=== PATIENT | female | born 1960 | race Caucasian/White ===

== ENCOUNTER 2024-08-13 10:46 | Emergency (ER) | payer MEDICARE, MEDICAID, SELFPAY ==
[2024-08-13 10:47] VITALS: BMI 27.4
[2024-08-13 11:25] VITALS: BP 92/60; PULSE 88; RESP 18; TEMP 36.6; O2SAT 99; BMI 26.5
--- NOTE | 2024-08-13 11:33 | XR_ITS ---
Examination: Foot, right, 3 views Technique: AP, oblique, lateral views foot, 3 views Date and time of exam: August 13, 2024 1139 hours Comparison 05/20/2024 INDICATIONS: Nonhealing wound medial foot FINDINGS: Old fracture deformity with nonunion proximal phalanx first digit No acute fracture No joanne cortical bone destruction IMPRESSION: No joanne cortical bone destruction Consider MRI foot without contrast follow-up to best assess for acute osteomyelitis
[2024-08-13 12:06] LABS: Basophils # (Auto) 0.1 Thou/mm3 (0.0-0.2); Basophils % (Auto) 1 % (0-2.5); Eosinophils # (Auto) 0.2 Thou/mm3 (0.0-0.5); Eosinophils % (Auto) 1 % (0-10); Hematocrit 38.5 % (36.0-46.0); Hemoglobin 12.1 g/dL (12.0-16.0); Immature Granulocytes % (Auto) 1 % (0-0); Immature Granulocytes Auto 0.07 Thou/mm3 (0.00-0.00); Lymphocytes % (Auto) 19 % (10-50); Mean Corpuscular HGB Conc 31.4 g/dl (31.0-37.0); Mean Corpuscular Hemoglobin 28.8 pg (25.0-35.0); Mean Corpuscular Volume 92 fL (80-100); Monocytes # (Auto) 0.8 Thou/mm3 (0.0-0.8); Monocytes % (Auto) 7 % (0-12); Neutrophils # (Auto) 7.6 Thou/mm3 (1.8-7.7); Neutrophils % (Auto) 71 % (37-80); Nucleated Red Blood Cell % 0 /100 WBC (0); Platelet Count 220 Thou/mm3 (140-440); RDW Standard Deviation 54.5 fL (36.4-46.3); White Blood Count 10.6 Thou/mm3 (3.6-11.0)
--- NOTE | 2024-08-13 12:36 | PD.EDSKIN ---
ED Skin Abcess FB-RME/HPI General Chief complaint: Skin/Abscess/Foreign Body Stated complaint: RT FOOT INFECTION Time Seen by Provider: 08/13/24 11:14 Arrival date/time: 08/13/24 10:46 64-year-old female presents emergency department today stating she knows that he had a wound on the plantar aspect of right foot patient does report she is a follow-up appointment with wound care on the but felt she should be seen before then Limitations: no limitations Related Data Home Medications ?Medication ?Instructions ?Recorded ?Confirmed atorvastatin 20 mg tablet 20 mg PO QDAY 09/15/23 09/15/23 calcitriol 0.25 mcg capsule See Rx Instructions .Route .COMPLEX 09/15/23 09/15/23 docusate sodium 250 mg capsule 250 mg PO QDAY 09/15/23 09/15/23 furosemide 80 mg tablet 80 mg PO QDAY PRN SOB 09/15/23 09/15/23 loratadine 10 mg tablet 10 mg PO QDAY 09/15/23 09/15/23 losartan 50 mg tablet 50 mg PO QDAY 09/15/23 09/15/23 metoprolol tartrate 50 mg tablet 50 mg PO QDAY 09/15/23 09/15/23 pantoprazole 40 mg tablet,delayed 40 mg PO QDAY 09/15/23 09/15/23 release Previous Rx's ?Medication ?Instructions ?Recorded bacitracin 500 unit/gram topical 1 applic topical TID 7 days #28.4 08/13/24 ointment grams clindamycin HCl 300 mg capsule 300 mg PO TID 7 days #21 caps 08/13/24 ibuprofen 600 mg tablet 600 mg PO Q6H #30 tabs 08/13/24 Allergies Allergy/AdvReac Type Severity Reaction Status Date / Time No Known Allergies Allergy Verified 08/13/24 10:49 Review of Systems Review of Systems Systems Reviewed: All systems reviewed, normal except as documented Constitutional Constitutional: Reports system reviewed and no additional complaints, except as documented, Denies fever(s) and Denies headache(s) Eyes Eyes: Reports system reviewed and no additional complaints, except as documented and Denies blurry vision ENT Ears, Nose, Mouth, and Throat: Reports system reviewed and no additional complaints, except as documented, Denies headache(s), Denies nasal congestion and Denies nasal discharge Cardiovascular Cardiovascular: Reports system reviewed and no additional complaints, except as documented, Denies chest pain and Denies dyspnea Respiratory Respiratory: Reports system reviewed and no additional complaints, except as documented, Denies chest congestion, Denies cough and Denies dyspnea Gastrointestinal Gastrointestinal: Reports system reviewed and no additional complaints, except as documented and Denies abdominal pain Integumentary/Breasts Skin/Breast: Reports system reviewed and no additional complaints, except as documented, Denies rash and Reports other (Wound right foot) Neurologic Neurologic: Reports system reviewed and no additional complaints, except as documented, Reports as per HPI and Denies headache(s) Past Medical History Past Medical History NEUROLOGIC: Positive Neurological Disorders and Cerebrovascular Accident (10 YEARS AGO - NO RESIDUAL EFFECTS); Negative Seizures CARDIAC: Positive Cardiac Disorders, Hypercholesterolemia, Hypertension and Hypotension; Negative Congestive Heart Failure RESPIRATORY: Negative Chronic Obstructive Pulmonary Disease (COPD) or Asthma GASTROINTESTINAL: Positive Gastrointestinal Disorders and Gastroesophageal Reflux Disease GENITOURINARY: Positive Genitourinary Disorders and Renal Disease (PERITONEAL DIALYSIS) MUSCULOSKELETAL: Negative Musculoskeletal Disorders ENDOCRINE: Positive Endocrine Disorders and Diabetes Mellitus Type 2 (DIET CONTROLLED - NO MEDS); Negative Diabetes Mellitus Type 1 HEMATOLOGIC: Negative Blood Disorders or Sickle Cell Disease OTHER HISTORY: Positive Chicken Pox, Measles and Mumps; Negative Blood Transfusions, Anesthesia Reactions or Cancer Family History FAMILY HISTORY: Positive Family Cancer Surgical History SURGICAL: Positive Abdominal Surgery (GASTRIC SLEEVE, PERITONEAL DIALYSIS PORT INSERTION), Hysterectomy and Section (X3) Social History SMOKING STATUS: Never smoker SUBSTANCE USE: does not use ED Exam General Limitations: Present no limitations General appearance: Present alert and in no apparent distress Head Head exam: Present atraumatic Eye Eye exam: Present normal appearance, PERRL and EOMI ENT ENT exam: Present normal exam, normal oropharynx and mucous membranes moist Neck Neck exam: Present normal inspection, full ROM and trachea midline Chest Chest inspection: Present normal inspection and symmetric chest wall rise Respiratory Respiratory exam: Present normal lung sounds bilaterally Cardiovascular Cardiovascular exam: Present regular rate, normal rhythm and normal heart sounds Abdominal Exam Abdominal exam: Present soft and normal bowel sounds Extremities Exam Extremities exam: Present normal inspection and full ROM Back Exam Back exam: Present normal inspection and full ROM Neurological Exam Neurological exam: Present alert, oriented X3, CN II-XII intact, normal gait and reflexes normal; Absent motor sensory deficit Psychiatric Psychiatric exam: Present normal affect and normal mood Skin Skin exam: Present warm, dry and other (Wound right foot) Course Quality Measures none Orders Category Date Time Status XR foot comp RT min 3V Stat Exams 08/13/24 11:33 Completed CBC Stat Lab 08/13/24 11:50 Completed Lidocaine 1% 20 ml [Xylocaine 1% 20 ML] Med 08/13/24 12:36 Discontinued 2.1 ml INFL X1 ONE cefTRIAXone [Rocephin] Med 08/13/24 12:36 Discontinued 1,000 mg IM X1 ONE Vital Signs Vital signs: Vital Signs Temperature 97.9 F 08/13/24 11:25 Pulse Rate 88 08/13/24 11:25 Respiratory Rate 18 08/13/24 11:25 Blood Pressure 92/60 08/13/24 11:25 Pulse Oximetry (%) 99 08/13/24 11:25 Oxygen Delivery Method Room Air 08/13/24 11:25 O2 saturation 9 9% room air within normal limits Skin / Abscess / Foreign Body MDM Narrative MDM Narrative:: 64-year-old female presents emergency department today stating she knows that he had a wound on the plantar aspect of right foot patient does report she is a follow-up appointment with wound care on the but felt she should be seen before then On exam patient does have a wound plantar aspect of the right foot X-ray of the right foot obtained no acute fracture dislocation noted no acute bony abnormality no osteomyelitis Lab work obtained no leukocytosis Patient given dressings to apply patient given bacitracin clindamycin prescriptions Patient given first dose of Rocephin here I explained to the patient that as she is diabetic this may worsen should it worsen for any reason she must return for further evaluation and treatment patient states understanding Patient data External records reviewed:: [facility] previous records Clinical information provided by:: patient Social determinants that could affect healthcare access:: none Patient has the following chronic illnesses:: See history How is presenting disease/condition affected by chronic disease/condition?: exacerbated by Evaluation data The following diagnostics were reviewed and interpreted by me:: lab results and radiology exam(s) Lab and/or radiology exams considered but not ordered:: Labs radiology obtained Interpretation Summary: Reviewed by me Medications / Prescriptions Medications or Prescriptions considered but not ordered:: Given Medication administrations:: Medication Administration History Discontinued Medications Ceftriaxone Sodium (Ceftriaxone Sod Inj 1,000 Mg Vial) 1,000 mg IM X1 ONE Stop: 08/13/24 12:37 Lidocaine HCl (Lidocaine Hcl 1% 20 Ml Vial) 2.1 ml INFL X1 ONE Stop: 08/13/24 12:37 Given Consultations Consultation(s) initiated? (list below): No Diagnosis Skin/Abscess Differential Diagnosis: abscess of skin or subcutaneous tissue and cellulitis Most likely diagnosis given after review of the tests above:: Wound foot Admission Indicated Admission indicated?: not indicated Admission Request Was there a request for admission?: No Disposition Plan Disposition Plan: Discharge Discharge Attestation Discharge Attestation: The patient and all family members were given an opportunity to ask questions and understood the discharge instructions. Discharge instructions specifically effects, indications for sooner follow up or return to the emergency department, and the expected course of current diagnosis. Patient condition: Stable Discharge Plan Plan Patient Disposition: HOME (Self Care) Disposition Comment: Stable Prescriptions/Referrals Prescriptions/Med Rec: New bacitracin 500 unit/gram ointment 1 applic topical TID 7 Days Qty: 28.4 0RF clindamycin HCl 300 mg capsule 300 mg PO TID 7 Days Qty: 21 0RF ibuprofen 600 mg tablet 600 mg PO Q6H Qty: 30 0RF No Action losartan 50 mg tablet 50 mg PO QDAY atorvastatin 20 mg tablet 20 mg PO QDAY furosemide 80 mg tablet 80 mg PO QDAY PRN (Reason: SOB) pantoprazole 40 mg tablet,delayed release (DR/EC) 40 mg PO QDAY metoprolol tartrate 50 mg tablet 50 mg PO QDAY docusate sodium 250 mg capsule 250 mg PO QDAY calcitriol 0.25 mcg Capsule See Rx Instructions .ROUTE .COMPLEX Rx Instructions: 0.25 mcg orally 3 TIMES A WEEK loratadine 10 mg tablet 10 mg PO QDAY Hold Instructions: Resume on 09/16/23. Problem List Clinical Impression: Wound of right foot Patient/Caregiver Discharge Instructions Additional Instructions: Please follow-up with the wound care center as discussed for worsening symptoms return immediately Print Language: Estonian Stand Alone Forms: Lou Award Info., Work/School Release, Patient Portal Info Letter PA/ELECTRONIC IMAGING SYSTEM OPERATOR Supervising Physician PA/ELECTRONIC IMAGING SYSTEM OPERATOR Supervising Physician: Dr Castro
[2024-08-13] MEDS: LIDOCAINE HCL 1% 20 ML VIAL 2.1 ML INFL (13:02)
[2024-08-13] MEDS: cefTRIAXone SOD INJ 1,000 MG VIAL 1000 MG IM (13:03)
== END 2024-08-13 13:21 | disposition home or self-care (01) ==
LOC: SERX 12:53
PROVIDERS: Nurse Practitioner Primary Care; Emergency Provider Emergency Medicine; PCP Physician Assistant
DX: S91.301A Unspecified open wound, right foot, initial encounter (principal); L08.9 Local infection of the skin and subcutaneous tissue, unspecified; X58.XXXA Exposure to other specified factors, initial encounter
CPT/HCPCS: 36415; 73630; 85025; 96372; 99283; J0696; J3490

== ENCOUNTER → 2024-08-15 | Outpatient (CLI) | payer MEDICARE, MEDICAID, SELFPAY | END | disposition home or self-care (01) | LOC: SWHD 13:06 | PROVIDERS: PCP Physician Assistant; Referring Provider Physician Assistant; Visit Provider Student in an Organized Health Care Education/Training Program | DX: I96 Gangrene, not elsewhere classified (principal); E11.621 Type 2 diabetes mellitus with foot ulcer; L97.412 Non-pressure chronic ulcer of right heel and midfoot with fat layer exposed; Z99.2 Dependence on renal dialysis; Z79.4 Long term (current) use of insulin; I95.9 Hypotension, unspecified; E11.40 Type 2 diabetes mellitus with diabetic neuropathy, unspecified; K21.9 Gastro-esophageal reflux disease without esophagitis | CPT/HCPCS: 11042; 99213; A9270; G0463 ==

== ENCOUNTER → 2024-08-22 | Outpatient (CLI) | payer MEDICARE, MEDICAID, SELFPAY | END | disposition home or self-care (01) | LOC: SWHD 13:43 | PROVIDERS: PCP Physician Assistant; Referring Provider Physician Assistant; Visit Provider Student in an Organized Health Care Education/Training Program | DX: E11.621 Type 2 diabetes mellitus with foot ulcer (principal); L97.412 Non-pressure chronic ulcer of right heel and midfoot with fat layer exposed; Z99.2 Dependence on renal dialysis; Z79.4 Long term (current) use of insulin; I95.9 Hypotension, unspecified; E11.40 Type 2 diabetes mellitus with diabetic neuropathy, unspecified; K21.9 Gastro-esophageal reflux disease without esophagitis | CPT/HCPCS: 11042; A9270 ==

== ENCOUNTER → 2024-08-29 | Outpatient (CLI) | payer MEDICARE, MEDICAID, SELFPAY | END | disposition home or self-care (01) | LOC: SWHD 15:12 | PROVIDERS: Visit Provider Student in an Organized Health Care Education/Training Program | DX: E11.621 Type 2 diabetes mellitus with foot ulcer (principal); L97.415 Non-pressure chronic ulcer of right heel and midfoot with muscle involvement without evidence of necrosis; Z99.2 Dependence on renal dialysis; Z79.4 Long term (current) use of insulin; I95.9 Hypotension, unspecified; E11.40 Type 2 diabetes mellitus with diabetic neuropathy, unspecified; K21.9 Gastro-esophageal reflux disease without esophagitis | CPT/HCPCS: 97597; A9270 ==

== ENCOUNTER → 2024-09-05 | Outpatient (CLI) | payer MEDICARE, MEDICAID, SELFPAY | END | disposition home or self-care (01) | LOC: SWHD 15:00 | PROVIDERS: Visit Provider Surgery | DX: E11.621 Type 2 diabetes mellitus with foot ulcer (principal); L97.412 Non-pressure chronic ulcer of right heel and midfoot with fat layer exposed; Z99.2 Dependence on renal dialysis; Z79.4 Long term (current) use of insulin; I95.9 Hypotension, unspecified; E11.40 Type 2 diabetes mellitus with diabetic neuropathy, unspecified; K21.9 Gastro-esophageal reflux disease without esophagitis | CPT/HCPCS: 11042; A9270 ==

== ENCOUNTER → 2024-09-12 | Outpatient (CLI) | payer MEDICARE, MEDICAID, SELFPAY | END | disposition home or self-care (01) | LOC: SWHD 14:45 | PROVIDERS: Visit Provider Student in an Organized Health Care Education/Training Program | DX: E11.621 Type 2 diabetes mellitus with foot ulcer (principal); L97.412 Non-pressure chronic ulcer of right heel and midfoot with fat layer exposed; Z99.2 Dependence on renal dialysis; Z79.4 Long term (current) use of insulin; I95.9 Hypotension, unspecified; E11.40 Type 2 diabetes mellitus with diabetic neuropathy, unspecified; K21.9 Gastro-esophageal reflux disease without esophagitis | CPT/HCPCS: 11042; A9270 ==

== ENCOUNTER → 2024-09-17 | Outpatient (CLI) | payer MEDICARE, MEDICAID, SELFPAY | END | disposition home or self-care (01) | LOC: SWHD 14:19 | PROVIDERS: Visit Provider Student in an Organized Health Care Education/Training Program | DX: E11.621 Type 2 diabetes mellitus with foot ulcer (principal); L97.412 Non-pressure chronic ulcer of right heel and midfoot with fat layer exposed; Z99.2 Dependence on renal dialysis; Z79.4 Long term (current) use of insulin; I95.9 Hypotension, unspecified; E11.40 Type 2 diabetes mellitus with diabetic neuropathy, unspecified; K21.9 Gastro-esophageal reflux disease without esophagitis | CPT/HCPCS: 11042; A9270 ==

== ENCOUNTER 2024-10-02 12:29 | Emergency (ER) | payer MEDICARE, MEDICAID, SELFPAY ==
[2024-10-02] VITALS (8 sets, daily range): BP systolic 128–179; BP diastolic 77–96; PULSE 86–96; RESP 14–20; TEMP 36.5–36.9; O2SAT 96–100; BMI 25.4
--- NOTE | 2024-10-02 13:20 | XR_ITS ---
Examination: AP chest single view Technique one AP upright portable chest single view Exam date and time: 10/30/2024 1357 hours Comparison February 19, 2024 INDICATIONS: Weakness shortness of breath today. FINDINGS: Median sternotomy wires Normal heart size No lobar pneumonia or pulmonary edema Mild vascular congestion Right internal jugular dialysis catheter SVC satisfactory position IMPRESSION: Mild vascular congestion
--- NOTE | 2024-10-02 13:20 | EKG_ITS ---
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[id number] Requested By: Shahzad Christensen Order Number: [id number] Reading MD: Shahzad Christensen Measurements Intervals Merlin Rate: 91 P: 61 IN: 155 QRS: -8 QRSD: 100 T: 16 QT: 389 QTc: 481 Interpretive Statements SINUS RHYTHM MINIMAL VOLTAGE CRITERIA FOR LVH, CONSIDER NORMAL VARIANT [MEETS CRITERIA IN ONE OF: R(aVL), S(V1), R(V5), R(V5/V6)+S(V1)] POSSIBLE ANTERIOR MYOCARDIAL INFARCTION , OF INDETERMINATE AGE [30 ms Q WAVE IN V3/V4, OR R < 0.2 mV IN V4] MODERATE T-WAVE ABNORMALITY, CONSIDER LATERAL ISCHEMIA [-0.1+ mV T WAVE IN I/aVL/V5/V6] Compared to ECG 02/13/2023 17:39:22 Myocardial infarct finding now present T-wave abnormality now present Possible ischemia now present ST (T wave) deviation no longer present /store/S0/[id number]/ecg/[id number].pdf
--- NOTE | 2024-10-02 13:20 | XR_ITS ---
Examination: CT brain head without contrast. 2-D sagittal coronal reconstructions Date and time of exam:October 02, 2024 1341 hours COMPARISON: 05/13/2022 INDICATIONS: Altered mental status today CTDI: vol (mGy):45.5 DLP: (mGycm):915 Technique: Multiple CT axial sections of the brain have been obtained, 5 mm slice thickness. Contrast has not been administered. 2-D sagittal, coronal reconstructions have been obtained Low dose protocols were performed. One or more of the following dose reduction techniques were used; automated exposure control, adjustment of the mA and/or KV according to patient size, use of iterative reconstruction technique. Findings: No significant ventricular enlargement. Intra-axial or extra-axial hemorrhage density is not seen. No mass effect or midline shift Basal cisterns are not remarkable. Fourth ventricle is midline. Cranial vault intact. Again noted encephalomalacia in the right occipital lobe Impression: Negative for acute hemorrhage, mass effect or midline shift Advise clinical correlation and follow-up accordingly
--- NOTE | 2024-10-02 13:20 | XR_ITS ---
Examination: CT abdomen and pelvis without contrast. Coronal 3-D reconstructions. Sagittal 2-D reconstructions. Date and time of exam:October 02, 2024 1344 hours INDICATIONS: Diffuse abdominal pain nausea and weakness beginning 2 days ago, history kidney stones COMPARISON: December 11, 2023 CTDI: vol (mGy): 8.80 DLP: (mGycm): 516 Technique: Axial images of the abdomen have been obtained, 3 mm slice thickness Intravenous contrast material has not been administered. Low dose protocols were performed. One or more of the following dose reduction techniques were used; automated exposure control, adjustment of the mA and/or KV according to patient size, use of iterative reconstruction technique. Findings: No focal liver or splenic lesions Absent gallbladder No pancreatic or adrenal mass Renal arterial calcifications and bilateral 1 to 4 mm renal calculi, no hydronephrosis or ureteral calculi 25 mm fat-containing umbilical hernia No pericecal inflammatory change Peritoneal dialysis catheter in the pelvis Urinary bladder intact No pelvic mass IMPRESSION: Nonobstructing bilateral renal calculi 25 mm fat-containing umbilical hernia Peritoneal dialysis catheter in satisfactory position No bowel obstruction
[2024-10-02 15:09] LABS: Lactate (Lactic Acid) 1.2 mMol/L (0.4-2.0)
[2024-10-02 15:20] LABS: Basophils # (Auto) 0.1 Thou/mm3 (0.0-0.2); Basophils % (Auto) 0 % (0-2.5); Eosinophils # (Auto) 0.2 Thou/mm3 (0.0-0.5); Eosinophils % (Auto) 1 % (0-10); Hematocrit 26.7 % (36.0-46.0); Hemoglobin 8.9 g/dL (12.0-16.0); Immature Granulocytes % (Auto) 2 % (0-0); Immature Granulocytes Auto 0.34 Thou/mm3 (0.00-0.00); Lymphocytes % (Auto) 13 % (10-50); Mean Corpuscular HGB Conc 33.3 g/dl (31.0-37.0); Mean Corpuscular Hemoglobin 29.6 pg (25.0-35.0); Mean Corpuscular Volume 89 fL (80-100); Monocytes # (Auto) 1.4 Thou/mm3 (0.0-0.8); Monocytes % (Auto) 9 % (0-12); Neutrophils # (Auto) 11.7 Thou/mm3 (1.8-7.7); Neutrophils % (Auto) 75 % (37-80); Nucleated Red Blood Cell % 0 /100 WBC (0); Platelet Count 256 Thou/mm3 (140-440); RDW Standard Deviation 54.4 fL (36.4-46.3); Red Blood Count 3.01 Miln/mm3 (4.00-5.20); White Blood Count 15.6 Thou/mm3 (3.6-11.0)
[2024-10-02 15:33] LABS: Prothrombin Time 10.8 Seconds (9.0-12.2)
[2024-10-02 15:44] LABS: Alanine Aminotransferase 13 U/L (10-49); Albumin, Serum 4.2 gm/dL (3.4-4.8); Albumin/Globulin Ratio 1.6 (1.2-2.2); Alcohol, Blood Medical < 3.0 mg/dL (0-10.0); Alkaline Phosphatase 82 U/L (46-116); Anion Gap 12 (7-16); Aspartate Amino Transferase 17 U/L (0-34); BUN/Creatinine Ratio 7 Ratio (12-20); Bilirubin,Total 1.6 mg/dL (0.3-1.2); Blood Urea Nitrogen 32 mg/dL (9-23); Calcium 9.5 mg/dL (8.3-10.6); Calcium (Corrected) 9.5 mg/dL (8.5-10.1); Carbon Dioxide 26.1 mMol/L (20.0-31.0); Chloride 103 mMol/L (98-107); Creatinine (Component) 4.6 mg/dL (0.6-1.3); Estimated Creatinine Clearance 12.5 mL/min (>60); Globulin 2.6 gm/dL (2.3-3.5); Glucose 106 mg/dL (74-106); Lipase 31 U/L (12-53); Osmolality,Calculated 288 (275-295); Potassium 3.4 mMol/L (3.4-5.1); Procalcitonin 0.31 ng/ml (0.0-0.49); Sodium 141 mMol/L (136-145); Total Protein 6.8 gm/dL (5.7-8.2); eGFR 10 See Note
[2024-10-02 16:12] LABS: Collection Type, Urine Catheter
[2024-10-02 16:38] LABS: Bacteria,Urine 3+; Bilirubin,Urine Negative (Negative); Blood,Urine Negative (Negative); Clarity,Urine Turbid (Clear/Hazy); Color,Urine Lt-Yellow (Lt Yel-Yel); Glucose, Urine 1+ (Negative); Ketones,Urine Trace (Negative); Leukocyte Esterase,Urine Negative (Negative); Nitrite,Urine Negative (Negative); PH,Urine 8.5 (5.0-7.0); Protein,Urine 2+ (Neg - Trace); RBC,Urine 2 /hpf (0-3); Specific Gravity,Urine 1.009 (1.001-1.035); Squamous Epithelial Cell,Urine 10 /hpf (0-5); Urobilinogen,Urine Negative mg/dL (0.0-1.0); WBC,Urine 3 /hpf (0-5)
--- NOTE | 2024-10-02 16:40 | PD.EDADULT ---
ED General RME/HPI General Chief complaint: Nausea/Vomiting/Diarrhea Stated complaint: WEAKNESS AND NAUSEA X 2200 Time Seen by Provider: 10/02/24 12:48 Arrival date/time: 10/02/24 12:29 RME / HPI RME / HPI narrative: 64-year-old female with a history of end-stage renal disease, on hemodialysis, with recent replacement of her peritoneal dialysis catheter, who presents with generalized fatigue since traveling to [place] yesterday. She was of her normal state of health and travel to [place] for her first intake visit for renal transplant. She noticed decreased appetite where she had a only a small lunch and has progressive weakness where she noticed significant sleepiness by the time she got home. She denies any headache, chest pain, abdominal pain. She denies any fevers chills or sweats. By this morning she is due for her dialysis where she felt too weak to go to dialysis therefore comes to the emergency department. Related Data Home Medications ?Medication ?Instructions ?Recorded ?Confirmed atorvastatin 20 mg tablet 20 mg PO QDAY 09/15/23 09/15/23 calcitriol 0.25 mcg capsule See Rx Instructions .Route .COMPLEX 09/15/23 09/15/23 docusate sodium 250 mg capsule 250 mg PO QDAY 09/15/23 09/15/23 furosemide 80 mg tablet 80 mg PO QDAY PRN SOB 09/15/23 09/15/23 loratadine 10 mg tablet 10 mg PO QDAY 09/15/23 09/15/23 Held on 09/15/23. Instructions: Resume on 09/16/23. losartan 50 mg tablet 50 mg PO QDAY 09/15/23 09/15/23 metoprolol tartrate 50 mg tablet 50 mg PO QDAY 09/15/23 09/15/23 pantoprazole 40 mg tablet,delayed 40 mg PO QDAY 09/15/23 09/15/23 release Previous Rx's ?Medication ?Instructions ?Recorded ibuprofen 600 mg tablet 600 mg PO Q6H #30 tabs 08/13/24 Allergies Allergy/AdvReac Type Severity Reaction Status Date / Time No Known Allergies Allergy Verified 08/13/24 10:49 Review of Systems Review of Systems Systems Reviewed: All systems reviewed, normal except as documented ED Exam Narrative Physical exam: GENERAL APPEARANCE: AxOx4, slightly lethargic, sleepy, nontoxic appearing HEENT: NC, AT. MMM. EOMI, clear conjunctiva, oropharynx clear. NECK: Supple without lymphadenopathy. No stiffness or restricted ROM. HEART: Normal rate and regular rhythm, normal S1/S1, no m/r/g LUNGS: CTAB, moving air well. No crackles or wheezes are heard. ABDOMEN: Right mid abdominal peritoneal catheter it is clean around the stoma, soft, nontender, nondistended with good bowel sounds heard. BACK: No midline C/T/L spine pain or deformity, No CVAT, no obvious deformity. EXTREMITIES: Without cyanosis, clubbing or edema. MUSCULOSKELETAL: Right upper chest tunneled hemodialysis catheter is clean dry and intact FROM of all major joints, no chest tenderness NEUROLOGICAL: Grossly nonfocal. Alert and oriented, moving all 4 extremities. CN not formally tested but appear grossly intact. Observed to ambulate with normal gait. Skin: Warm and dry without any rash. Course Course Course Narrative: 1800 signed out to oncoming provider in stable condition pending final results and disposition. Quality Measures none Orders Category Date Time Status Bedside COVID-19 Antigen Test NOW Care 10/02/24 13:19 Active Bedside Influenza A&B Antigen Test NOW Care 10/02/24 13:19 Active EKG (ED ONLY) *Do not use* NOW Care 10/02/24 13:20 Completed In and Out Catheter X1 Care 10/02/24 15:[address] abdomen pelvis wo con Stat Exams 10/02/24 13:[address] head/brain wo con Stat Exams 10/02/24 13:20 Completed EKG (ED Only) Stat Exams 10/02/24 13:20 Draft XR chest 1V Stat Exams 10/02/24 13:20 Completed Alcohol, Blood Medical Stat Lab 10/02/24 14:38 Completed CBC Stat Lab 10/02/24 14:38 Completed CMP [Comprehensive Metabolic Panel] Stat Lab 10/02/24 14:38 Completed Drug Screen,Urine Stat Lab 10/02/24 16:39 Ordered Lactate (Lactic Acid) Stat Lab 10/02/24 14:38 Completed Lipase Stat Lab 10/02/24 14:38 Completed Partial Thromboplastin Time Stat Lab 10/02/24 14:38 Completed Procalcitonin Stat Lab 10/02/24 14:38 Completed Prothrombin Time with INR Stat Lab 10/02/24 14:38 Completed Urinalysis Stat Lab 10/02/24 16:05 Completed Sodium Chloride 0.9% 500 ml [Ns] 500 ml Med 10/02/24 17:38 Active IV 999 mls/hr Vital Signs Vital signs: Vital Signs Temperature 97.7 F 10/02/24 12:32 Pulse Rate 89 10/02/24 12:32 Respiratory Rate 20 10/02/24 12:32 Blood Pressure 179/96 H 10/02/24 12:32 Pulse Oximetry (%) 100 10/02/24 12:32 Oxygen Delivery Method Room Air 10/02/24 12:32 SpO2 100% on room air, patient is not hypoxic MDM Patient data External records reviewed:: [facility] previous records Clinical information provided by:: patient Social determinants that could affect healthcare access:: none Patient has the following chronic illnesses:: End-stage renal disease How is presenting disease/condition affected by chronic disease/condition?: exacerbated by Evaluation data The following diagnostics were reviewed and interpreted by me:: lab results and radiology exam(s) Lab and/or radiology exams considered but not ordered:: None Interpretation Summary: As per narrative Medications Medications considered but not ordered:: None Medication administrations:: Medication Administration History Sodium Chloride (Ns) 500 mls @ 999 mls/hr IV .Q31M ONE Stop: 10/02/24 18:08 above Consultations Consultation(s) initiated? (list below): No Diagnosis Differential Diagnosis ED Complaint MDM: UTI, viral syndrome, dehydration Most likely diagnosis given after review of the tests above:: work-up pending Admission Indicated Admission indicated?: not indicated Explain why admission is indicated or not indicated:: wor-up pending Admission Request Was there a request for admission?: No Disposition Plan Disposition Plan: Discharge Discharge Attestation Discharge Attestation: The patient and all family members were given an opportunity to ask questions and understood the discharge instructions. Discharge instructions specifically effects, indications for sooner follow up or return to the emergency department, and the expected course of current diagnosis. Patient condition: Stable Medical Decision Making MDM Narrative MDM Narrative: Mr. Carmona is a pleasant female who presents with generalized weakness without pain. She has a new peritoneal catheter in place. She is currently getting hemodialysis through an upper right temporary catheter. She is of normal state of health when traveling to the [place] area yesterday for her renal transplant intake. Patient has primarily generalized symptoms with benign exam including no abdominal pain, therefore laboratory testing was sent to further narrow the issue. Results were significant for an leukocytosis at 15,000, otherwise unremarkable. Creatinine is 4. CT scan of the abdomen shows no acute findings, she is postsurgical with cholecystectomy. She has a peritoneal dialysis catheter this in place. I do suspect a UTI to account for her leukocytosis. She has a contaminated sample with a rather large amount of bacteriuria. She is pending a catheterization sample. If positive recommended antibiotics and I do feel that she can go home with oral antibiotics. Differential Diagnosis Differential Diagnosis: UTI, viral syndrome, dehydration Lab Data 10/02/24 14:38 10/02/24 14:38 Labs: Lab Results 10/02/24 10/02/24 Range/Units 14:38 16:05 WBC 15.6 H (3.6-11.0) Thou/mm3 RBC 3.01 L (4.00-5.20) Miln/mm3 Hgb 8.9 L (12.0-16.0) g/dL Hct 26.7 L (36.0-46.0) % MCV 89 (80-100) fL MCH 29.6 (25.0-35.0) pg MCHC 33.3 (31.0-37.0) g/dl RDW Std Deviation 54.4 H (36.4-46.3) fL Plt Count 256 (140-440) Thou/mm3 Neut % (Auto) 75 (37-80) % Lymph % (Auto) 13 (10-50) % Leslie % (Auto) 9 (0-12) % Eos % (Auto) 1 (0-10) % Baso % (Auto) 0 (0-2.5) % Neut # (Auto) 11.7 H (1.8-7.7) Thou/mm3 Lymph # (Auto) 2.0 (1.0-4.8) Thou/mm3 Leslie # (Auto) 1.4 H (0.0-0.8) Thou/mm3 Eos # (Auto) 0.2 (0.0-0.5) Thou/mm3 Baso # (Auto) 0.1 (0.0-0.2) Thou/mm3 Immature Gran # (Auto) 0.34 H (0.00-0.00) Thou/mm3 Absolute Nucleated RBC 0.00 (0.00-0.00) Thou/mm3 Immature Gran % 2 H (0-0) % Nucleated RBC % 0 (0) /100 WBC PT 10.8 (9.0-12.2) Seconds INR 1.0 (0.9-1.3) APTT 22.0 (22.0-36.0) Seconds Sodium 141 (136-145) mMol/L Potassium 3.4 (3.4-5.1) mMol/L Chloride 103 (98-107) mMol/L Carbon Dioxide 26.1 (20.0-31.0) mMol/L Anion Gap 12 (7-16) BUN 32 H (9-23) mg/dL Creatinine 4.6 H* (0.6-1.3) mg/dL Estim Creat Clear Calc 12.5 L (>60) mL/min eGFR 10 L* (60 - ) See Note BUN/Creatinine Ratio 7 L (12-20) Ratio Glucose 106 (74-106) mg/dL Calculated Osmolality 288 (275-295) Lactic Acid 1.2 (0.4-2.0) mMol/L Calcium 9.5 (8.3-10.6) mg/dL Corrected Calcium 9.5 (8.5-10.1) mg/dL Total Bilirubin 1.6 H (0.3-1.2) mg/dL AST 17 (0-34) U/L ALT 13 (10-49) U/L Alkaline Phosphatase 82 (46-116) U/L Total Protein 6.8 (5.7-8.2) gm/dL Albumin 4.2 (3.4-4.8) gm/dL Globulin 2.6 (2.3-3.5) gm/dL Albumin/Globulin Ratio 1.6 (1.2-2.2) Lipase 31 (12-53) U/L Procalcitonin 0.31 (0.0-0.49) ng/ml Ur Collection Type Catheter Urine Color Lt-Yellow (Lt Yel-Yel) Urine Clarity Turbid A (Clear/Hazy) Urine pH 8.5 H (5.0-7.0) Ur Specific [place] 1.009 (1.001-1.035) Urine Protein 2+ A (Neg - Trace) Urine Glucose (UA) 1+ A (Negative) Urine Ketones Trace (Negative) Urine Blood Negative (Negative) Urine Nitrite Negative (Negative) Urine Bilirubin Negative (Negative) Urine Urobilinogen (Auto) Negative (0.0-1.0) mg/dL Ur Leukocyte Esterase Negative (Negative) Urine RBC 2 (0-3) /hpf Urine WBC 3 (0-5) /hpf Ur Squamous Epith Cells 10 H (0-5) /hpf Urine Bacteria 3+ A (None) Ethyl Alcohol < 3.0 (0-10.0) mg/dL Discharge Plan Prescriptions/Referrals Prescriptions/Med Rec: No Action losartan 50 mg tablet 50 mg PO QDAY atorvastatin 20 mg tablet 20 mg PO QDAY furosemide 80 mg tablet 80 mg PO QDAY PRN (Reason: SOB) pantoprazole 40 mg tablet,delayed release (DR/EC) 40 mg PO QDAY metoprolol tartrate 50 mg tablet 50 mg PO QDAY docusate sodium 250 mg capsule 250 mg PO QDAY calcitriol 0.25 mcg Capsule See Rx Instructions .ROUTE .COMPLEX Rx Instructions: 0.25 mcg orally 3 TIMES A WEEK loratadine 10 mg tablet 10 mg PO QDAY ibuprofen 600 mg tablet 600 mg PO Q6H Qty: 30 0RF Referrals: Kev RODRIGUES)Catalina PA-C [Primary Care Provider] - In 1 week Problem List Clinical Impression: Weakness, Leukocytosis Patient/Caregiver Discharge Instructions Print Language: Nigerian
[2024-10-02] MEDS: SODIUM CHLORIDE 0.9% 500 ML 500 ML 999 ML IV (19:00)
[2024-10-02 20:14] LABS: Collection Type, Urine Clean Catch
[2024-10-02] MEDS: ONDANSETRON INJ 2 MG/ML INJ 2 ML 4 MG IV (20:18)
[2024-10-02 20:36] LABS: Bacteria,Urine 1+; Bilirubin,Urine Negative (Negative); Blood,Urine Negative (Negative); Clarity,Urine Clear (Clear/Hazy); Color,Urine Lt-Yellow (Lt Yel-Yel); Culture Indicated,Urine Yes; Glucose, Urine 1+ (Negative); Ketones,Urine Trace (Negative); Leukocyte Esterase,Urine Negative (Negative); Nitrite,Urine Negative (Negative); PH,Urine 8.5 (5.0-7.0); Protein,Urine 2+ (Neg - Trace); RBC,Urine 9 /hpf (0-3); Squamous Epithelial Cell,Urine 3 /hpf (0-5); Urobilinogen,Urine Negative mg/dL (0.0-1.0); WBC,Urine 3 /hpf (0-5)
--- NOTE | 2024-10-02 21:19 | PD.EDADDENDU ---
Emergency Room Addendum Addendum Narrative: 1800: Care assumed from Dr. Christensen, the previous shift emergency physician. Past medical, surgical, social and family history reviewed. Vitals and home medications reviewed. I will assume the care of the patient at this time. Please refer to the emergency department record for history and examination from initial visit.? Physical exam by me shows patient under no acute distress at this time. 2145: Patient remains clinically stable throughout the emergency department visit. Re-assessment at the time of disposition demonstrates that the patient is in no acute distress. We reviewed all the results, analysis, and treatment plans. Patient is amenable to discharge. Strict return precautions were outlined. Patient was discharged in stable condition. Diagnoses: Weakness, Leukocytosis
[2024-10-02 21:41] LABS: Amphetamine/Methamp Scrn,U Negative (Negative); Barbiturate Screen,Urine Negative (Negative); Benzodiazepines Screen,Urine Negative (Negative); Benzoylecgonine Screen, Ur Negative (Negative); Fentanyl Screen,Urine Positive (Negative); Opiate Screen,Urine Positive (Negative); THC Screen,Urine Negative (Negative)
== END 2024-10-02 22:45 | disposition home or self-care (01) ==
PROVIDERS: Emergency Medicine; Emergency Provider Emergency Medicine; PCP Physician Assistant
DX: R53.1 Weakness (principal); D72.829 Elevated white blood cell count, unspecified; N18.6 End stage renal disease; Z99.2 Dependence on renal dialysis; Z90.49 Acquired absence of other specified parts of digestive tract
CPT/HCPCS: 36415; 70450; 71045; 74176; 80053; 80307; 80320; 81001; 83605; 83690; 84145; 85025; 85610; 85730; 87086; 87400; 87811; 93005; 96374; 99284; J2405; J7040; G0480

== ENCOUNTER → 2024-11-15 | Outpatient (CLI) | payer MEDICARE, MEDICAID, SELFPAY ==
--- NOTE | 2024-11-15 14:17 | EKG_ITS ---
[facility] Test Date: 2024-11-15 Pat Name: KAREN BARNES Department: Room: - Gender: Female Back Winder: RT STUDENT : 1960 Requested By: Kt Hendrickson Order Number: [id number] Reading MD: Kt Hendrickson Measurements Intervals [place] Rate: 96 P: 61 DE: 158 QRS: -20 QRSD: 93 T: 111 QT: 361 QTc: 456 Interpretive Statements SINUS RHYTHM LEFT VENTRICULAR HYPERTROPHY AND ST-T CHANGE [VOLTAGE CRITERIA PLUS ST/T ABNORMALITY] Compared to ECG 10/02/2024 14:10:48 ST (T wave) deviation now present Myocardial infarct finding no longer present T-wave abnormality no longer present Possible ischemia no longer present /store/S0/[id number].pdf
[2024-11-15 15:23] LABS: Basophils # (Auto) 0.1 Thou/mm3 (0.0-0.2); Basophils % (Auto) 1 % (0-2.5); Eosinophils # (Auto) 0.3 Thou/mm3 (0.0-0.5); Eosinophils % (Auto) 3 % (0-10); Hematocrit 38.4 % (36.0-46.0); Immature Granulocytes % (Auto) 1 % (0-0); Lymphocytes # (Auto) 1.7 Thou/mm3 (1.0-4.8); Lymphocytes % (Auto) 17 % (10-50); Mean Corpuscular HGB Conc 31.3 g/dl (31.0-37.0); Mean Corpuscular Hemoglobin 31.4 pg (25.0-35.0); Mean Corpuscular Volume 101 fL (80-100); Monocytes # (Auto) 0.7 Thou/mm3 (0.0-0.8); Monocytes % (Auto) 7 % (0-12); Neutrophils # (Auto) 7.2 Thou/mm3 (1.8-7.7); Neutrophils % (Auto) 72 % (37-80); Nucleated Red Blood Cell % 0 /100 WBC (0); Platelet Count 276 Thou/mm3 (140-440); RDW Standard Deviation 59.3 fL (36.4-46.3); Red Blood Count 3.82 Miln/mm3 (4.00-5.20); White Blood Count 10.1 Thou/mm3 (3.6-11.0)
[2024-11-15 15:54] LABS: Alanine Aminotransferase 10 U/L (10-49); Albumin, Serum 4.3 gm/dL (3.4-4.8); Albumin/Globulin Ratio 1.5 (1.2-2.2); Alkaline Phosphatase 83 U/L (46-116); Anion Gap 11 (7-16); Aspartate Amino Transferase 13 U/L (0-34); BUN/Creatinine Ratio 5 Ratio (12-20); Bilirubin,Total 0.3 mg/dL (0.3-1.2); Blood Urea Nitrogen 12 mg/dL (9-23); Calcium 9.4 mg/dL (8.3-10.6); Calcium (Corrected) 9.4 mg/dL (8.5-10.1); Carbon Dioxide 28.9 mMol/L (20.0-31.0); Chloride 102 mMol/L (98-107); Creatinine (Component) 2.3 mg/dL (0.6-1.3); Globulin 2.9 gm/dL (2.3-3.5); Glucose 172 mg/dL (74-106); Osmolality,Calculated 286 (275-295); Potassium 3.3 mMol/L (3.4-5.1); Sodium 142 mMol/L (136-145); Total Protein 7.2 gm/dL (5.7-8.2); eGFR 23 See Note
[2024-11-15 16:19] LABS: Partial Thromboplastin Time > 139.0 Seconds (22.0-36.0)
== END | disposition home or self-care (01) ==
LOC: COPL 13:51
PROVIDERS: PCP Nurse Practitioner Primary Care; Referring Provider Surgery Vascular Surgery; Visit Provider Surgery Vascular Surgery
DX: Z01.818 Encounter for other preprocedural examination (principal); I73.9 Peripheral vascular disease, unspecified; Z79.01 Long term (current) use of anticoagulants
CPT/HCPCS: 36415; 80053; 85025; 85610; 85730; 93005

== ENCOUNTER 2024-11-28 13:18 | Inpatient (IN) | payer MEDICARE, MEDICAID, SELFPAY ==
[2024-11-28] VITALS (14 sets, daily range): BP systolic 95–221; BP diastolic 56–140; PULSE 73–140; RESP 16–23; TEMP 36.6–37.8; O2SAT 95–100; BMI 25.6
--- NOTE | 2024-11-28 16:50 | XR_ITS ---
Examination: CT brain head without contrast. 2-D sagittal coronal reconstructions Date and time of exam:November 28, 2024, 2054 hours INDICATIONS: Hypertension headache today CTDI: vol (mGy):48.8 DLP: (mGycm):968 Technique: Multiple CT axial sections of the brain have been obtained, 5 mm slice thickness. Contrast has not been administered. 2-D sagittal, coronal reconstructions have been obtained Low dose protocols were performed. One or more of the following dose reduction techniques were used; automated exposure control, adjustment of the mA and/or KV according to patient size, use of iterative reconstruction technique. Findings: No significant ventricular enlargement. Intra-axial or extra-axial hemorrhage density is not seen. No mass effect or midline shift Basal cisterns are not remarkable. Fourth ventricle is midline. Cranial vault intact. 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
[2024-11-28 18:00] LABS: Basophils # (Auto) 0.1 Thou/mm3 (0.0-0.2); Basophils % (Auto) 1 % (0-2.5); Eosinophils % (Auto) 0 % (0-10); Hemoglobin 15.2 g/dL (12.0-16.0); Immature Granulocytes % (Auto) 1 % (0-0); Immature Granulocytes Auto 0.13 Thou/mm3 (0.00-0.00); Lymphocytes # (Auto) 0.5 Thou/mm3 (1.0-4.8); Lymphocytes % (Auto) 4 % (10-50); Mean Corpuscular HGB Conc 32.3 g/dl (31.0-37.0); Mean Corpuscular Hemoglobin 30.5 pg (25.0-35.0); Mean Corpuscular Volume 94 fL (80-100); Monocytes # (Auto) 0.3 Thou/mm3 (0.0-0.8); Monocytes % (Auto) 2 % (0-12); Neutrophils % (Auto) 93 % (37-80); Nucleated Red Blood Cell % 0 /100 WBC (0); Platelet Count 302 Thou/mm3 (140-440); RDW Standard Deviation 55.1 fL (36.4-46.3); Red Blood Count 4.98 Miln/mm3 (4.00-5.20)
[2024-11-28 18:37] LABS: Partial Thromboplastin Time 27.4 Seconds (22.0-36.0); Prothrombin Time 11.2 Seconds (9.0-12.2)
--- NOTE | 2024-11-28 18:38 | PC.LAC ---
CALLED PHARMACY TO REQUEST OCTREOTIDE, TO DELIVER.
[2024-11-28] MEDS: LABETALOL INJ 5 MG/ML VIAL 20 ML 20 MG IV (18:42)
[2024-11-28] MEDS: ONDANSETRON INJ 2 MG/ML INJ 2 ML 8 MG IV (18:44)
[2024-11-28] MEDS: PANTOPRAZOLE INJ 40 MG VIAL IVP (18:49)
[2024-11-28] MEDS: METOCLOPRAMIDE INJ 5 MG/ML VIAL 2 ML 10 MG IV (18:50)
[2024-11-28] MEDS: FAMOTIDINE INJ 10 MG/ML VIAL 2 ML 20 MG IV (18:50)
[2024-11-28 18:59] LABS: Alanine Aminotransferase 14 U/L (10-49); Albumin, Serum 4.8 gm/dL (3.4-4.8); Albumin/Globulin Ratio 1.4 (1.2-2.2); Alkaline Phosphatase 99 U/L (46-116); Anion Gap 21 (7-16); Aspartate Amino Transferase 24 U/L (0-34); BUN/Creatinine Ratio 6 Ratio (12-20); Bilirubin,Total 0.4 mg/dL (0.3-1.2); Blood Urea Nitrogen 22 mg/dL (9-23); Calcium 11.1 mg/dL (8.3-10.6); Calcium (Corrected) 11.1 mg/dL (8.5-10.1); Carbon Dioxide 17.3 mMol/L (20.0-31.0); Chloride 101 mMol/L (98-107); Creatinine (Component) 3.6 mg/dL (0.6-1.3); Globulin 3.4 gm/dL (2.3-3.5); Glucose 281 mg/dL (74-106); Magnesium 2.1 mg/dL (1.6-2.6); Osmolality,Calculated 290 (275-295); Sodium 139 mMol/L (136-145); Thyroid Stimulating Hormone 0.51 uIU/mL (0.55-4.78); Total Protein 8.2 gm/dL (5.7-8.2); Troponin I < 0.020 ng/mL (0.0-0.045); eGFR 14 See Note
[2024-11-28 19:00] LABS: Collection Type, Urine Clean Catch
[2024-11-28 19:29] LABS: Bacteria,Urine 4+; Bilirubin,Urine Negative (Negative); Blood,Urine Negative (Negative); Clarity,Urine Turbid (Clear/Hazy); Color,Urine Lt-Yellow (Lt Yel-Yel); Glucose, Urine 3+ (Negative); Ketones,Urine 1+ (Negative); Leukocyte Esterase,Urine Negative (Negative); Nitrite,Urine Negative (Negative); PH,Urine 8.5 (5.0-7.0); Protein,Urine 3+ (Neg - Trace); RBC,Urine 6 /hpf (0-3); Specific Gravity,Urine 1.012 (1.001-1.035); Squamous Epithelial Cell,Urine 10 /hpf (0-5); Urobilinogen,Urine Negative mg/dL (0.0-1.0); WBC,Urine 9 /hpf (0-5)
--- NOTE | 2024-11-28 20:22 | PC.NURSE ---
pt daughter yelled out calling staff to bedside. pt noted to be seizing, dr. wayne and ariana hi at bedside. suction provided, pt placed on 0xygen at 15 liters.
[2024-11-28] MEDS: LORazepam 2 MG/ML VIAL IVP (20:23)
[2024-11-28] MEDS: OCTREOTIDE ACET INJ 50 mCg/ML VIAL IV (20:29)
--- NOTE | 2024-11-28 20:36 | XR_ITS ---
Examination: CTA carotids with intravenous contrast CTA brain, head with intravenous contrast. 2-D sagittal, coronal reconstructions. 3-D reconstructions. Exam date and time: November 28, 20242056 hours INDICATIONS: New onset seizure today CTDI: vol (mGy) 10.8 DLP: (mGycm) 430 Technique: Multiple CTA axial brain, head carotid images post intravenous contrast injection 100 cc, [id number]. 2-D sagittal, coronal reconstructions. 3-D reconstructions, 3-D post processing including vascular maximum intensity projection images. Low dose protocols were performed. One or more of the following dose reduction techniques were used; automated exposure control, adjustment of the mA and/or KV according to patient size, use of iterative reconstruction technique. Findings: There are 1.5 mm axial images of the soft tissue neck and head only No 2-D or 3-D reconstructions 22 mm thyroid nodule Moderate right carotid bifurcation calcification, no critical stenoses 40-60% stenosis left carotid bifurcation and origin left internal carotid artery Mildly dominant left vertebral artery in the neck no critical stenoses Intracranial vertebral arteries and basilar artery posterior cerebral artery branches fill with no occlusions Heavy calcification juxtasellar internal carotid arteries bilaterally 30-50% stenosis No occlusions M1 segments middle cerebral arteries, middle cerebral artery trifurcation vessels or anterior cerebral arteries IMPRESSION: Limited films presented for interpretation 40-60% stenosis left carotid bifurcation origin left internal carotid artery No cerebral large vessel arterial occlusions
--- NOTE | 2024-11-28 20:38 | PD.EDADULT ---
ED General RME/HPI General Chief complaint: GI Bleed Stated complaint: VOMITING BLOOD Time Seen by Provider: 11/28/24 16:07 Source: patient and family Arrival date/time: 11/28/24 13:18 64-year-old female presents to the ED with her daughter with a chief complaint of vomiting blood, headache, and elevated blood pressure. She has a past medical history of end-stage renal disease on dialysis. She also recently had a pacemaker placed on October 25, as well as a history of hypotension for which she is on midodrine. Upon arrival to the emergency department her blood pressure was elevated at 222/122. Patient denies any visual or hearing changes, blurry vision, chest pain or shortness of breath, diarrhea or abdominal pain, numbness, tingling or weakness to her extremities. She denies any recent illness with fever, chills, cough, upper respiratory complaints or complaints. Mode of arrival: ambulatory Limitations: no limitations Related Data Home Medications ?Medication ?Instructions ?Recorded ?Confirmed atorvastatin 20 mg tablet 20 mg PO QDAY 09/15/23 09/15/23 calcitriol 0.25 mcg capsule See Rx Instructions .Route .COMPLEX 09/15/23 09/15/23 docusate sodium 250 mg capsule 250 mg PO QDAY 09/15/23 09/15/23 furosemide 80 mg tablet 80 mg PO QDAY PRN SOB 09/15/23 09/15/23 loratadine 10 mg tablet 10 mg PO QDAY 09/15/23 09/15/23 Held on 09/15/23. Instructions: Resume on 09/16/23. losartan 50 mg tablet 50 mg PO QDAY 09/15/23 09/15/23 metoprolol tartrate 50 mg tablet 50 mg PO QDAY 09/15/23 09/15/23 pantoprazole 40 mg tablet,delayed 40 mg PO QDAY 09/15/23 09/15/23 release Previous Rx's ?Medication ?Instructions ?Recorded ibuprofen 600 mg tablet 600 mg PO Q6H #30 tabs 08/13/24 Allergies Allergy/AdvReac Type Severity Reaction Status Date / Time No Known Allergies Allergy Verified 11/28/24 14:45 Review of Systems Review of Systems Narrative Review of Systems: Denies recent illness with Fever, chills, cough, upper respiratory symptoms, diarrhea, or abdominal pain. Constitutional Constitutional: Reports as per HPI and Reports headache(s) Eyes Eyes: Denies blurry vision, Denies change in vision and Denies diplopia ENT Ears, Nose, Mouth, and Throat: Reports as per HPI, Denies dizziness and Reports headache(s) Cardiovascular Cardiovascular: Reports as per HPI, Denies chest pain and Denies dyspnea Respiratory Respiratory: Reports as per HPI, Denies cough and Denies dyspnea Gastrointestinal Gastrointestinal: Reports as per HPI, Denies abdominal pain, Reports coffee ground emesis, Reports hematemesis and Reports vomiting Genitourinary Genitourinary: Reports system reviewed and no additional complaints, except as documented Musculoskeletal Musculoskeletal: Reports system reviewed and no additional complaints, except as documented, Denies abnormal gait, Denies numbness and Denies tingling Neurologic Neurologic: Denies abnormal gait, Denies dizziness, Denies localized weakness, Reports headache(s), Denies numbness, Denies other visual disturbances, Denies paresthesias, Denies sensory deficit and Denies tingling Endocrine Endocrine: Reports system reviewed and no additional complaints, except as documented ED Exam General Limitations: Present no limitations; Absent altered mental status General appearance: Present alert and in distress Head Head exam: Present atraumatic and normal inspection Eye Eye exam: Present normal appearance; Absent scleral icterus or conjunctival injection ENT ENT exam: Present normal exam Neck Neck exam: Present normal inspection Chest Chest inspection: Present normal inspection Respiratory Respiratory exam: Present normal lung sounds bilaterally; Absent respiratory distress Cardiovascular Cardiovascular exam: Present regular rate and normal rhythm Abdominal Exam Abdominal exam: Present soft and normal bowel sounds; Absent distention, tenderness, guarding or rebound Rectal Exam Rectal exam: Present deferred Extremities Exam Extremities exam: Present normal inspection and full ROM; Absent tenderness Back Exam Back exam: Present full ROM Neurological Exam Neurological exam: Present alert, oriented X3 and CN II-XII intact; Absent motor sensory deficit Psychiatric Psychiatric exam: Present normal affect and normal mood Skin Skin exam: Present warm, dry, intact and normal color Course Course Course Narrative: 64-year-old female presents to the ED with her daughter with a chief complaint of vomiting blood, headache, and elevated blood pressure. She has a past medical history of end-stage renal disease on dialysis. She also recently had a pacemaker placed on October 25, as well as a history of hypotension for which she is on midodrine. Upon arrival to the emergency department her blood pressure was elevated at 222/122. Patient denies any visual or hearing changes, blurry vision, chest pain or shortness of breath, diarrhea or abdominal pain, numbness, tingling or weakness to her extremities. She denies any recent illness with fever, chills, cough, upper respiratory complaints or complaints. 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 STAT Care 11/28/24 16:52 Active Continuous Pulse Oximetry STAT Care 11/28/24 16:52 Completed EKG (ED ONLY) *Do not use* NOW Care 11/28/24 16:48 Completed Insert IV STAT Care 11/28/24 16:48 Active Insert NG / OG tube NOW Care 11/28/24 16:50 Active MRI Screening NOW Care 11/28/24 20:33 Completed NPO STAT Care 11/28/24 16:52 Active Vital Signs, Non-Routine Timed Care 11/28/[address] angio stroke protocol Stat Exams 11/28/24 20:[address] head/brain wo con Stat Exams 11/28/24 16:[address] stroke protocol Stat Exams 11/28/24 20:36 Taken EKG (ED Only) Stat Exams 11/28/24 16:48 Ordered CBC Stat Lab 11/28/24 17:44 Completed Comprehensive Metabolic Panel Stat Lab 11/28/24 17:44 Completed Free T4 (Free Thyroxine) Stat Lab 11/28/24 21:14 Ordered Magnesium Stat Lab 11/28/24 17:44 Completed PTT [Partial Thromboplastin Time] Stat Lab 11/28/24 17:44 Completed Prothrombin Time with INR Stat Lab 11/28/24 17:44 Completed Thyroid Stimulating Hormone Stat Lab 11/28/24 17:44 Completed Troponin I Stat Lab 11/28/24 17:44 Completed Type and Screen Stat Lab 11/28/24 17:44 Completed Urinalysis Stat Lab 11/28/24 18:49 Completed Famotidine Inj [Pepcid Inj] Med 11/28/24 16:50 Discontinued 20 mg IV X1 ONE LORazepam [Ativan Inj] Med 11/28/24 20:37 Discontinued 2 mg IVP X1 ONE LORazepam [Ativan Inj] Med 11/28/24 20:09 Discontinued 4 mg .ROUTE .STK-MED ONE Labetalol IV [Trandate IV] Med 11/28/24 16:48 Discontinued 20 mg IV X1 ONE Metoclopramide Inj [Reglan Inj] Med 11/28/24 16:50 Discontinued 10 mg IV X1 ONE Octreotide Acet Inj [SandoSTATIN Inj] Med 11/28/24 20:00 Discontinued 50 mcg IV X1 ONE Ondansetron Inj [Zofran Inj] Med 11/28/24 16:50 Active 8 mg IV Q2HR PRN Pantoprazole Inj [Protonix Inj] Med 11/28/24 16:50 Discontinued 40 mg IVP X1 ONE Sodium Chloride 0.9% [Ns] 100 ml Med 11/28/24 17:00 Active Octreotide Acet Inj [SandoSTATIN Inj] 1,000 mcg IV 50 mcg/hr Sodium Chloride 0.9% [Ns] 100 ml Med 11/29/24 12:51 Pending Octreotide Acet Inj [SandoSTATIN Inj] 1,000 mcg IV 50 mcg/hr Vital Signs Vital signs: Vital Signs Temperature 99.9 F 11/28/24 13:33 Pulse Rate 105 H 11/28/24 13:33 Respiratory Rate 19 11/28/24 13:33 Blood Pressure 221/122 H 11/28/24 13:33 Pulse Oximetry (%) 95 11/28/24 13:33 Oxygen Delivery Method Room Air 11/28/24 13:33 [facility] Patient data External records reviewed:: None Clinical information provided by:: patient and family Social determinants that could affect healthcare access:: none Patient has the following chronic illnesses:: End-stage renal disease on hemodialysis. Pacemaker placement. Hypotension on midodrine. How is presenting disease/condition affected by chronic disease/condition?: uneffected by Evaluation data The following diagnostics were reviewed and interpreted by me:: lab results Medications Medication administrations:: Medication Administration History Octreotide Acetate 1,000 mcg/ (Sodium Chloride) 102 mls @ 5.1 mls/hr IV .Q20H ALEX; Protocol Stop: 12/29/24 12:50 Octreotide Acetate 1,000 mcg/ (Sodium Chloride) 102 mls @ 5.1 mls/hr IV .Q20H ONE; Protocol Stop: 11/29/24 12:59 Ondansetron HCl (Ondansetron Inj 2 Mg/Ml Inj 2 Ml) 8 mg IV Q2HR PRN PRN Reason: Vomiting Stop: 11/28/24 22:01 Last Admin: 11/28/24 18:44 Dose: 8 mg Documented By: TM Discontinued Medications Famotidine (Famotidine Inj 10 Mg/Ml Vial 2 Ml) 20 mg IV X1 ONE Stop: 11/28/24 16:51 Last Admin: 11/28/24 18:50 Dose: 20 mg Documented By: TM Labetalol HCl (Labetalol Inj 5 Mg/Ml Vial 20 Ml) 20 mg IV X1 ONE Stop: 11/28/24 16:49 Last Admin: 11/28/24 18:42 Dose: 20 mg Documented By: TM Lorazepam (Lorazepam 2 Mg/Ml Vial) Confirm Administered Dose 4 mg .ROUTE .STK-MED ONE Stop: 11/28/24 20:10 Last Admin: 11/28/24 20:38 Dose: Not Given Documented By: JOYCE Non-Admin Reason: Override Medication Lorazepam (Lorazepam 2 Mg/Ml Vial) 2 mg IVP X1 ONE Stop: 11/28/24 20:38 Last Admin: 11/28/24 20:23 Dose: 2 mg Documented By: JOYCE Metoclopramide HCl (Metoclopramide Inj 5 Mg/Ml Vial 2 Ml) 10 mg IV X1 ONE Stop: 11/28/24 16:51 Last Admin: 11/28/24 18:50 Dose: 10 mg Documented By: TM Octreotide Acetate (Octreotide Acet Inj 50 Mcg/Ml Vial) 50 mcg IV X1 ONE Stop: 11/28/24 20:01 Last Admin: 11/28/24 20:29 Dose: 50 mcg Documented By: JOYCE Pantoprazole Sodium (Pantoprazole Inj 40 Mg Vial) 40 mg IVP X1 ONE Stop: 11/28/24 16:51 Last Admin: 11/28/24 18:49 Dose: 40 mg Documented By: MARLENY Admission Indicated Admission indicated?: indicated Medical Decision Making Lab Data 11/28/24 17:44 11/28/24 17:44 Labs: Lab Results 11/28/24 11/28/24 Range/Units 17:44 18:49 WBC 14.0 H (3.6-11.0) Thou/mm3 RBC 4.98 (4.00-5.20) Miln/mm3 Hgb 15.2 (12.0-16.0) g/dL Hct 47.0 H (36.0-46.0) % MCV 94 (80-100) fL MCH 30.5 (25.0-35.0) pg MCHC 32.3 (31.0-37.0) g/dl RDW Std Deviation 55.1 H (36.4-46.3) fL Plt Count 302 (140-440) Thou/mm3 Neut % (Auto) 93 H (37-80) % Lymph % (Auto) 4 L (10-50) % Ada % (Auto) 2 (0-12) % Eos % (Auto) 0 (0-10) % Baso % (Auto) 1 (0-2.5) % Neut # (Auto) 13.0 H (1.8-7.7) Thou/mm3 Lymph # (Auto) 0.5 L (1.0-4.8) Thou/mm3 Ada # (Auto) 0.3 (0.0-0.8) Thou/mm3 Eos # (Auto) 0.0 (0.0-0.5) Thou/mm3 Baso # (Auto) 0.1 (0.0-0.2) Thou/mm3 Immature Gran # (Auto) 0.13 H (0.00-0.00) Thou/mm3 Absolute Nucleated RBC 0.00 (0.00-0.00) Thou/mm3 Immature Gran % 1 H (0-0) % Nucleated RBC % 0 (0) /100 WBC PT 11.2 (9.0-12.2) Seconds INR 1.0 (0.9-1.3) APTT 27.4 D (22.0-36.0) Seconds Sodium 139 (136-145) mMol/L Potassium 4.0 (3.4-5.1) mMol/L Chloride 101 (98-107) mMol/L Carbon Dioxide 17.3 L (20.0-31.0) mMol/L Anion Gap 21 H (7-16) BUN 22 (9-23) mg/dL Creatinine 3.6 H (0.6-1.3) mg/dL Estim Creat Clear Calc 16.0 L (>60) mL/min eGFR 14 L* (60 - ) See Note BUN/Creatinine Ratio 6 L (12-20) Ratio Glucose 281 H (74-106) mg/dL Calculated Osmolality 290 (275-295) Calcium 11.1 H (8.3-10.6) mg/dL Corrected Calcium 11.1 H (8.5-10.1) mg/dL Magnesium 2.1 (1.6-2.6) mg/dL Total Bilirubin 0.4 (0.3-1.2) mg/dL AST 24 (0-34) U/L ALT 14 (10-49) U/L Alkaline Phosphatase 99 (46-116) U/L Troponin I < 0.020 (0.0-0.045) ng/mL Total Protein 8.2 (5.7-8.2) gm/dL Albumin 4.8 (3.4-4.8) gm/dL Globulin 3.4 (2.3-3.5) gm/dL Albumin/Globulin Ratio 1.4 (1.2-2.2) TSH 0.51 L (0.55-4.78) uIU/mL Ur Collection Type Clean Catch Urine Color Lt-Yellow (Lt Yel-Yel) Urine Clarity Turbid A (Clear/Hazy) Urine pH 8.5 H (5.0-7.0) Ur Specific [place] 1.012 (1.001-1.035) Urine Protein 3+ A (Neg - Trace) Urine Glucose (UA) 3+ A (Negative) Urine Ketones 1+ A (Negative) Urine Blood Negative (Negative) Urine Nitrite Negative (Negative) Urine Bilirubin Negative (Negative) Urine Urobilinogen (Auto) Negative (0.0-1.0) mg/dL Ur Leukocyte Esterase Negative (Negative) Urine RBC 6 H (0-3) /hpf Urine WBC 9 H (0-5) /hpf Ur Squamous Epith Cells 10 H (0-5) /hpf Urine Bacteria 4+ A (None) Blood Type A Positive Antibody Screen NEGATIVE Blood Bank Wristband ID Yes Discharge Plan Prescriptions/Referrals Prescriptions/Med Rec: No Action losartan 50 mg tablet 50 mg PO QDAY atorvastatin 20 mg tablet 20 mg PO QDAY furosemide 80 mg tablet 80 mg PO QDAY PRN (Reason: SOB) pantoprazole 40 mg tablet,delayed release (DR/EC) 40 mg PO QDAY metoprolol tartrate 50 mg tablet 50 mg PO QDAY docusate sodium 250 mg capsule 250 mg PO QDAY calcitriol 0.25 mcg Capsule See Rx Instructions .ROUTE .COMPLEX Rx Instructions: 0.25 mcg orally 3 TIMES A WEEK loratadine 10 mg tablet 10 mg PO QDAY ibuprofen 600 mg tablet 600 mg PO Q6H Qty: 30 0RF Referrals: Kev (VASILIY),DARIAN Arnold [Primary Care Provider] - In 1 week Patient/Caregiver Discharge Instructions Print Language: [place]uran
--- NOTE | 2024-11-28 21:04 | PC.NURSE ---
Case # [id number] for [facility] neuro.
--- NOTE | 2024-11-28 21:25 | PC.LAC ---
Dr. Gaspar from [facility] consulting patient at this time.
[2024-11-28] MEDS: OCTREOTIDE ACET INJ 1,000 MCG in SODIUM CHLORIDE 0.9% 100 ML 5.1 MCG IV (21:27)
[2024-11-28] MEDS: LABETALOL INJ 5 MG/ML VIAL 20 ML 20 MG IVP (21:38)
[2024-11-28 21:45] LABS: Free T4 (Free Thyroxine) 1.48 ng/dL (0.89-1.76)
--- NOTE | 2024-11-28 21:59 | PC.RT ---
RT called due to room stat at 20:26, pt on 15L oxymask with spo2 100%, RR20, hr 76, RT on tranport to CT back at 2108, refer to nurses notes.
--- NOTE | 2024-11-28 22:07 | PD.TNEURO ---
Tele Neuro Consultation Consultation Date 11/28/24 Most Recent Vital Signs Last Vital Signs Temp 100.1 F 11/28/24 18:35 Pulse 73 11/28/24 21:52 Resp 18 11/28/24 21:52 BP 183/97 H 11/28/24 21:52 Pulse Ox 100 11/28/24 21:52 O2 Del Method Oxy Mask 11/28/24 21:52 O2 Flow Rate 10 11/28/24 21:52 Laboratory-Coagulation Panel PT 11.2 Seconds (9.0-12.2) 11/28/24 17:44 INR 1.0 (0.9-1.3) 11/28/24 17:44 APTT 27.4 Seconds (22.0-36.0) D 11/28/24 17:44 Consultation Narrative [facility] Tele[facility] Consult [facility] Patient Name:???Edita Carmona Date of :???1960 Identification Number:??? Date of Service:???11/28/2024 21:04:04 Diagnosis:?G40.6 - Grand mal seizures, unspecified (with or without petit mal) Impression: ?The patient has h/o stroke on asa and plavix, DM, ESRD on dialysis, and no prior h/o seizures, was in the ED for hemetemesis, sepsis, and severe hypertension, and had a witnessed generalized seizure. I suspect provoked seizure due to vomiting/GI bleed, sepsis/infectious causes but PRES would also be on differential. Currently she is post ictal but without focal findings, moving all extremities and answering questions. CTH without contrast shows no acute findings. CTA H/N completed shows NO LVO. Stroke is not suspected but I recommend MRI brain wwo contrast for further workup and gradual reduction of BP for potential PRES, continued workup of sepsis, and routine EEG with seizure precautions. She was loaded with Keppra by ED but given first time likely provoked seizure, no indication to continue antiseizure prophylaxis at this time. Benzodiazepines can be used if isolated seizures recur. Also discussed restrictions including No driving until cleared by neurology followup. ? ? Our recommendations are outlined below. Recommendations: ? Stroke/Telemetry Floor ? Neuro Checks ? Bedside Swallow Eval ? DVT Prophylaxis ? IV Fluids, Normal Saline ? Head of Bed 30 Degrees ? Euglycemia and Avoid Hyperthermia (PRN Acetaminophen) ?gradual reduction of BP recommended ?MRI brain wwo contrast coordinated for dialysis afterwards (patient also has pacer requiring review of compatibility) ?routine EEG ?Get WORKUP for TOXIC/METABOLIC/INFECTIOUS causes including lactate Sign Out: ? Discussed with Emergency Department Provider Advanced Imaging: CTA Head and Neck Completed. LVO:No Patient in not a candidate for ROSA ISELA Metrics: Last Known Well: 11/28/2024 20:40:00 Dispatch Time: 11/28/2024 21:04:04 Initial Response Time: 11/28/2024 21:11:44Symptoms: vomiting blood and seizure. Initial patient interaction: 11/28/2024 21:23:28 NIHSS Assessment Completed: 11/28/2024 21:31:45Patient is not a candidate for Thrombolytic. Thrombolytic Medical Decision: 11/28/2024 21:33:53Patient was not deemed candidate for Thrombolytic because of following reasons: Seizure at onset with postictal residual neurological impairments . CT head showed no acute hemorrhage or acute core infarct. Primary Provider Notified of Diagnostic Impression and Management Plan on: 11/28/2024 21:47:01 History of Present Illness:Patient is a 64 year old Female. She came in for hypertension and coffee ground emesis since 10 this morning. She has ESRD and dialysis last yesterday. She was in the ED since 1pm and her BP was elevated. BP was up to 200 systolic earlier. LKW was approx 2039, She had a big seizure 30-40 minutes ago, when her daughter was helping her up. the seizure was generalized with head tilted back and eyes glossed over, with arms extended, lasted 2.5 minutes. She was given 2mg of ativan. She is currently sleepy but arouses to voice and answers questions and moving all extremities. 16 years ago she had a stroke noted on a scan but was silent with no symptoms. Temp is 100.1. Past Medical History: ?Hypertension ?Diabetes Mellitus ?Stroke ?There is no history of Seizures Other PMH:? vertigo ?ESRD Medications: No Anticoagulant use? Antiplatelet use:?Yes?plavix and asa Reviewed EMR for current medications Allergies:? Reviewed Social History: Unable To Obtain Due To Patient Status :?Patient Cannot Communicate Relevant Social History Family History: There is no family history of premature cerebrovascular disease pertinent to this consultation ROS : 14 Points Review of Systems was performed and was negative except mentioned in HPI. Past Surgical History: There Is No Surgical History Contributory To Today?s Visit Examination: BP(95/56),?Pulse(140),?Blood Glucose(248) 1A: Level of Consciousness - Arouses to minor stimulation?+ 1 1B: Ask Month and Age - 1 Question Right?+ 1 1C: Blink Eyes & Squeeze Hands - Performs Both Tasks?+ 0 2: Test Horizontal Extraocular Movements - Normal?+ 0 3: Test Visual Valdivia - No Visual Loss?+ 0 4: Test Facial Palsy (Use Grimace if Obtunded) - Normal symmetry?+ 0 5A: Test Left Arm Motor Drift - No Drift for 10 Seconds?+ 0 5B: Test Right Arm Motor Drift - Drift, but doesn't hit bed?+ 1 6A: Test Left Leg Motor Drift - Drift, but doesn't hit bed?+ 1 6B: Test Right Leg Motor Drift - Drift, but doesn't hit bed?+ 1 7: Test Limb Ataxia (FNF/Heel-Peck) - Ataxia in 1 Limb?+ 1 8: Test Sensation - Normal; No sensory loss?+ 0 9: Test Language/Aphasia - Normal; No aphasia?+ 0 10: Test Dysarthria - Normal?+ 0 11: Test Extinction/Inattention - No abnormality?+ 0 NIHSS Score:?6 NIHSS Free Text :?giveway weakness throughout Pre-Morbid Modified Frances Scale:1 Points = No significant disability despite symptoms; able to carry out all usual duties and activities Spoke with :?Dr Szymanski This consult was conducted in real time using interactive audio and video technology. Patient was informed of the technology being used for this visit and agreed to proceed. Patient located in hospital and provider located at home/office setting. Patient is being evaluated for possible acute neurologic impairment and high probability of imminent or life-threatening deterioration. I spent total of 35 minutes providing care to this patient, including time for face to face visit via telemedicine, review of medical records, imaging studies and discussion of findings with providers, the patient and/or family. Dr Abelardo Gaspar [facility] For Inpatient follow-up with [facility] physician please call [facility] at . As we are not an outpatient service for any post hospital discharge needs please contact the hospital for assistance. If you have any questions for the [facility] physicians or need to reconsult for clinical or diagnostic changes please contact us via [facility] at .
[2024-11-28 22:40] LABS: Lactate (Lactic Acid) 2.3 mMol/L (0.4-2.0)
[2024-11-28] MEDS: hydrALAZINE INJ 20 MG/ML VIAL 10 MG IV (22:52)
[2024-11-28] MEDS: PANTOPRAZOLE/NS 80MG IV PREMIX 80 MG/100 ML BAG 10 MG IV (22:58)
[2024-11-28 23:11] LABS: Aspartate Amino Transferase 14 U/L (0-34); Creatine Kinase 34 U/L (34-171); LDH (Lactate Dehydrogenase) 216 U/L (120-246); Phosphorous 4.8 mg/dL (2.4-5.1)
--- NOTE | 2024-11-28 23:53 | PD.RESHP ---
Documentation for date of: 11/28/24 [facility] History of Present Illness Chief complaint: coffee ground emesis History of present illness: The patient is a 64-year-old female with a previous medical history of end-stage renal disease on hemodialysis M/W/F (previously on peritoneal dialysis, stopped in March 2024), esophageal ulcers, CAD status post CABG. pacemaker placement September 2024, type 2 diabetes, hypotension on midodrine who was brought into the ED due to general weakness, coffee-ground emesis. Her family at the bedside, daughter reports that during her last hemodialysis session patient reported feeling weak. Daughter also reported that patient was on peritoneal dialysis until March 2024 when during that admission for CABG report became clogged and she was unable to use it. Port was removed and another was placed in the right upper quadrant. Family denies denies fever, chills, bloody stools, abdominal pain, history of liver disease. Daughter reports that patient had imaging of the brain done and there were old strokes found on it without neurological deficits. ED course: Blood pressure 221/122, heart rate 105, initially on room air. In the ED patient had an episode of generalized tonic-clonic seizure. According to the family the patient was talking, then became stiff and then started to shake, seizure lasted approximately 2 minutes. She received 2 mg of lorazepam IV, became sedated after. Stroke alert was called, CT head and CTA head and neck was negative for acute stroke, bleeding, fracture, CTA was negative for large vessel occlusion teleneuro was consulted, low suspicion for stroke, high suspicion for provoked seizure due to sepsis and also PRES, possible GI bleed. Patient received metoclopramide 10 mg, ondansetron 8 mg, labetalol 20 mg, famotidine 20 mg, was started on pantoprazole and octreotide. Labs: WBC 14, hemoglobin 15.2, hematocrit 47%, platelets 302, sodium 139, potassium 4, chloride 101, anion gap 21, carbon dioxide 17.3 BUN 22, creatinine 3.6, glucose 281, lactic acid 2.3, corrected calcium 11, TSH 0.51, free T4 8. UA was positive for 3+ protein, 3+ urine glucose, 9 WBC, 6 RBC, bacteria 4+. INR 1.0. EKG showed sinus rhythm. Home medications: Aspirin 81 mg daily, clopidogrel 75 mg, atorvastatin 40 mg, linagliptin 5 mg, vitamin C, calcitriol, midodrine 10 3 times a day as needed if blood pressure less than 130, pantoprazole 40 mg twice a day, metoclopramide, Cymbalta, acetaminophen, Sarahi-Sixto, docusate. Patient is going to be admitted for seizure most likely provoked due to infection and and/or upper GI bleed and hypertensive emergency treatment and management. Review of Systems Review of Systems ROS Unobtainable: unobtainable due to mental status Past Medical History Past Medical History NEUROLOGIC: Positive Neurological Disorders and Cerebrovascular Accident (10 YEARS AGO - NO RESIDUAL EFFECTS); Negative Seizures CARDIAC: Positive Cardiac Disorders, Hypercholesterolemia, Hypertension and Hypotension; Negative Congestive Heart Failure RESPIRATORY: Negative Chronic Obstructive Pulmonary Disease (COPD) or Asthma GASTROINTESTINAL: Positive Gastrointestinal Disorders and Gastroesophageal Reflux Disease GENITOURINARY: Positive Genitourinary Disorders and Renal Disease (PERITONEAL DIALYSIS) MUSCULOSKELETAL: Negative Musculoskeletal Disorders ENDOCRINE: Positive Endocrine Disorders and Diabetes Mellitus Type 2 (DIET CONTROLLED - NO MEDS); Negative Diabetes Mellitus Type 1 HEMATOLOGIC: Negative Blood Disorders or Sickle Cell Disease OTHER HISTORY: Positive Chicken Pox, Measles and Mumps; Negative Blood Transfusions, Anesthesia Reactions or Cancer Family History FAMILY HISTORY: Positive Family Cancer Surgical History SURGICAL: Positive Abdominal Surgery (GASTRIC SLEEVE, PERITONEAL DIALYSIS PORT INSERTION), Hysterectomy and Section (X3) Social History SMOKING STATUS: Never smoker SUBSTANCE USE: does not use Exam Vital Signs Temp Pulse Resp BP Pulse Ox O2 Del Method O2 Flow Rate 97.8 F 83 16 168/90 H 100 Oxy Mask 10 11/28/24 23:19 11/28/24 23:19 11/28/24 23:19 11/28/24 23:19 11/28/24 23:19 11/28/24 23:19 11/28/24 23:19 Narrative Exam Physical Exam General: Somnolent, GCS 13. Follows commands, AOx2 (not oriented in time, recognizes daughter) HEENT: Normocephalic, atraumatic, mucous membranes moist. Heart: Regular rate and rhythm, no murmurs. Lungs: Clear to auscultation with no wheezing or crackles. Abdomen: Soft, nondistended, nontender, positive bowel sounds. ?No guarding or rebound tenderness. Scar post peritoneal dialysis port. In the right upper quadrant peritoneal dialysis port with serosanguinous fluid. Neurologic: Alert and oriented x2, generalized weakness, able to follow commands. Extremities: No edema. Skin: No rash or ecchymoses. Results: Labs 11/29/24 02:17 11/29/24 02:17 Labs: Short CBC 11/28/24 Range/Units 17:44 WBC 14.0 H (3.6-11.0) Thou/mm3 Hgb 15.2 (12.0-16.0) g/dL Hct 47.0 H (36.0-46.0) % Plt Count 302 (140-440) Thou/mm3 BMP 11/28/24 17:44 Sodium 139 Potassium 4.0 Chloride 101 Carbon Dioxide 17.3 L BUN 22 Creatinine 3.6 H Glucose 281 H Calcium 11.1 H Cardiac Enzymes 11/28/24 11/28/24 Range/Units 17:44 22:32 Total Creatine Kinase 34 (34-171) U/L Troponin I < 0.020 (0.0-0.045) ng/mL Liver Function 11/28/24 11/28/24 Range/Units 17:44 22:32 Total Bilirubin 0.4 (0.3-1.2) mg/dL AST 24 14 (0-34) U/L ALT 14 (10-49) U/L Alkaline Phosphatase 99 (46-116) U/L Albumin 4.8 (3.4-4.8) gm/dL Urine 11/28/24 Range/Units 18:49 Urine Color Lt-Yellow (Lt Yel-Yel) Urine Clarity Turbid A (Clear/Hazy) Urine pH 8.5 H (5.0-7.0) Ur Specific Ono 1.012 (1.001-1.035) Urine Protein 3+ A (Neg - Trace) Urine Glucose (UA) 3+ A (Negative) Quality Measures Quality Measures VTE prophylaxis Medications Home Medications and Allergies Home Medications ?Medication ?Instructions ?Recorded ?Confirmed ?Type atorvastatin 20 mg tablet 20 mg PO QDAY 09/15/23 11/28/24 History calcitriol 0.25 mcg capsule 0.5 mcg PO .qhs 09/15/23 11/28/24 History docusate sodium 250 mg capsule 250 mg PO BID 09/15/23 11/28/24 History furosemide 80 mg tablet 80 mg PO QDAY PRN SOB 09/15/23 11/29/24 History loratadine 10 mg tablet 10 mg PO QDAY 09/15/23 11/29/24 History Held on 09/15/23. Instructions: Resume on 09/16/23. losartan 50 mg tablet 50 mg PO QDAY 09/15/23 11/29/24 History metoprolol tartrate 50 mg tablet 50 mg PO QDAY 09/15/23 11/29/24 History pantoprazole 40 mg tablet,delayed 40 mg PO BID 09/15/23 11/29/24 History release acetaminophen 325 mg capsule 325 mg PO PRN PRN pain 11/28/24 11/28/24 History aspirin 81 mg tablet,delayed 81 mg PO QDAY 11/28/24 11/28/24 History release (Adult Low Dose Aspirin) atorvastatin 40 mg tablet 40 mg PO QDAY 11/28/24 11/28/24 History clopidogrel 75 mg tablet 75 mg PO QDAY 11/28/24 11/28/24 History duloxetine 30 mg capsule,delayed 30 mg PO BID 11/28/24 11/28/24 History release (Cymbalta) linagliptin 5 mg tablet (Tradjenta) 5 mg PO QDAY 11/28/24 11/28/24 History metoclopramide HCl 5 mg tablet 5 mg PO PRN PRN nausea 11/28/24 11/28/24 History (Reglan) midodrine 10 mg tablet 10 mg PO TID PRN SBP under 130 11/28/24 11/28/24 History Allergies Allergy/AdvReac Type Severity Reaction Status Date / Time No Known Allergies Allergy Verified 11/28/24 14:45 Visit Medications Acetaminophen (Acetaminophen 325 Mg Tablet) 650 mg PO Q6H PRN; Protocol PRN Reason: Fever >100.3 or pain 1-3 Stop: 12/28/24 23:18 Acetaminophen (Acetaminophen Supp 650 Mg Supp) 650 mg TN Q6HR PRN; Protocol PRN Reason: Fever > 100.3 or pain 1-3 Stop: 12/28/24 23:18 Dextrose (Dextrose 50%-Water Inj 50 Ml Syringe) 25 ml IV Q15MIN PRN PRN Reason: BG 50-70 responsive npo pt Stop: 12/28/24 23:28 Dextrose (Dextrose 50%-Water Inj 50 Ml Syringe) 50 ml IV Q15MIN PRN PRN Reason: BG <50 OR BG <70 & pt unresponsive Stop: 12/28/24 23:28 Glucagon (Glucagon Inj 1 Mg Vial) 1 mg IM Q15MIN PRN PRN Reason: BG <70, and no IV access Pantoprazole Sodium (Protonix/Ns 80mg Iv Premix) 80 mg in 100 mls @ 10 mls/hr IV X1 ONE Stop: 11/29/24 08:01 Last Admin: 11/28/24 22:58 Dose: 10 mls/hr Ceftriaxone Sodium/Dextrose (Rocephin/D5w 1gm Iv Premix) 1 gm in 50 mls @ 100 mls/hr IV QDAY@2100 ALEX Stop: 12/05/24 23:35 Insulin Human Lispro (Insulin Lispro (Admelog) 1 Unit/0.01 Ml Unit) 0 unit SC AC ALEX; Protocol Stop: 12/29/24 07:29 Labetalol HCl (Labetalol Inj 5 Mg/Ml Vial 20 Ml) 10 mg IVP Q2H PRN PRN Reason: SBP>180, hold if HR<60 Stop: 12/28/24 23:44 Sennosides (Senna Tablet) 1 tab PO QDAY PRN; Protocol PRN Reason: constipation Stop: 12/28/24 23:18 Discontinued Medications Famotidine (Famotidine Inj 10 Mg/Ml Vial 2 Ml) 20 mg IV X1 ONE Stop: 11/28/24 16:51 Last Admin: 11/28/24 18:50 Dose: 20 mg Hydralazine HCl (Hydralazine Inj 20 Mg/Ml Vial) 10 mg IV X1 ONE Stop: 11/28/24 22:35 Last Admin: 11/28/24 22:52 Dose: 10 mg Octreotide Acetate 1,000 mcg/ (Sodium Chloride) 102 mls @ 5.1 mls/hr IV .Q20H ALEX; Protocol Stop: 12/29/24 12:50 Octreotide Acetate 1,000 mcg/ (Sodium Chloride) 102 mls @ 5.1 mls/hr IV .Q20H ONE; Protocol Stop: 11/29/24 12:59 Last Admin: 11/28/24 21:27 Dose: 50 mcg/hr, 5.1 mls/hr Labetalol HCl (Labetalol Inj 5 Mg/Ml Vial 20 Ml) 20 mg IV X1 ONE Stop: 11/28/24 16:49 Last Admin: 11/28/24 18:42 Dose: 20 mg Labetalol HCl (Labetalol Inj 5 Mg/Ml Vial 20 Ml) 20 mg IVP X1 ONE Stop: 11/28/24 21:32 Last Admin: 11/28/24 21:38 Dose: 20 mg Lorazepam (Lorazepam 2 Mg/Ml Vial) 2 mg IVP X1 ONE Stop: 11/28/24 20:38 Last Admin: 11/28/24 20:23 Dose: 2 mg Metoclopramide HCl (Metoclopramide Inj 5 Mg/Ml Vial 2 Ml) 10 mg IV X1 ONE Stop: 11/28/24 16:51 Last Admin: 11/28/24 18:50 Dose: 10 mg Octreotide Acetate (Octreotide Acet Inj 50 Mcg/Ml Vial) 50 mcg IV X1 ONE Stop: 11/28/24 20:01 Last Admin: 11/28/24 20:29 Dose: 50 mcg Ondansetron HCl (Ondansetron Inj 2 Mg/Ml Inj 2 Ml) 8 mg IV Q2HR PRN PRN Reason: Vomiting Stop: 11/28/24 22:01 Last Admin: 11/28/24 18:44 Dose: 8 mg Pantoprazole Sodium (Pantoprazole Inj 40 Mg Vial) 40 mg IVP X1 ONE Stop: 11/28/24 16:51 Last Admin: 11/28/24 18:49 Dose: 40 mg Assessment & Plan Plan The patient is a 64-year-old female with a previous medical history of end-stage renal disease on hemodialysis M/W/F (previously on peritoneal dialysis, stopped in March 2024), esophageal ulcers, CAD status post CABG. pacemaker placement September 2024, type 2 diabetes, hypotension on midodrine who was brought into the ED due to general weakness, coffee-ground emesis. Patient was admitted for seizure most likely provoked due to infection and and/or upper GI bleed and hypertensive emergency treatment and management. #Episode of generalized tonic-clonic seizure #Acute encephalopathy Most likely in the setting of infection and/or upper GI bleed. Received 2 mg of lorazepam IV, did not had to repeat seizures. Family denies history of seizures. Blood sugar on admission was 96. CT head, CTA head and neck negative for acute stroke, bleeding, fracture, large vessel occlusion. Possible provoking factors could be upper GI bleed, UTI, peritoneal catheter infection, metabolic encephalopathy. Lactate was 2.3, went down to 1.2. Plan: -Telemetry - Neuro Checks q4hr - Bedside Swallow Eval - DVT Prophylaxis - Head of Bed 30 Degrees - Euglycemia and Avoid Hyperthermia (PRN Acetaminophen) - Gradual reduction of BP recommended - MRI brain wwo contrast coordinated for dialysis afterwards - routine EEG ? Blood cultures ordered ? Urine cultures ordered ? Peritoneal fluid differential and cultures ordered #Upper GI bleed #History of esophageal ulcers Patient had coffee-ground emesis in the ED, EGD in 2022 was positive for multiple esophageal ulcers. In the ED patient was started on octreotide. T. bili is 0.2, AST 20, ALT 12, no history of liver disease. Low suspicion for esophageal varices, will not proceed with octreotide drip for now. Plan: ? GI consult ? N.p.o. now ? Pantoprazole 40 mg twice daily ? Monitor daily CBC, transfuse if hemoglobin less than 7 #Hypertensive emergency In the ED blood pressure went up to 220/122, patient received hydralazine and labetalol IV. Plan: ? Gradual reduction of blood pressure, goal is 10 to 20% in the first hour, 5 to 15% in the next 23 hours. Goal blood pressure less than 160/120 ? Labetalol 10 mg every 2 hours if systolic blood pressure more [id number] #UTI UA was positive for signs of UTI. Abdominal palpation is painless. Plan: ? Urine cultures ordered ? Ceftriaxone 1 g daily #History of peritonitis Per family, patient did not report any abdominal pain in the previous few days. Plan: ? Peritoneal fluid differential and cultures ordered ? Empiric Rocephin #History of type 2 diabetes Plan: ? A1c ordered ? Sliding scale insulin with Accu-Cheks ? Hypoglycemic protocol #ESRD on hemodialysis Plan: - nephrology consult for hemodialysis inpatient #CAD s/p CABG Stable. Plan: - aspirin and plavix is on hold for now Health maintenance: FEN: NPO for now DVT prophylaxis: SCDs GI prophylaxis: pantoprazole 40 mg bid Dispo: telemetry CODE STATUS: Full code Plan of care discussed with attending Dr. Zamora, PGY-[address] Mcintosh. Anay Amor MD, PGY 1. Attending Provider Attestation/Addendum I attest that I was physically present for the evaluation, physical examination, lab and imaging review of the patient with the residents. I discussed the case with the residents and agree with the findings and plans of care as documented above. Patient is a 64 years old female with past medical history of ESRD on hemodialysis, esophageal ulcers, CAD status post CABG, pacemaker placement, diabetes mellitus and hypertension on midodrine who presented to the ED with complaint of generalized weakness. As per the daughter at bedside, patient started feeling weak since her last hemodialysis session. Patient used to be on peritoneal dialysis, which has not been working and is planned for removal, currently getting dialysis from right IJ catheter. In the ED, she had an episode of generalized tonic-clonic seizure, the daughter stated that patient initially became stiff and then started saying, approximately lasting for 2 minutes. Her blood pressure was 221/122, heart rate 105. Patient received 2 mg of IV lorazepam, following which she became sleepy. Patient also noted to have coffee-ground emesis, unclear if patient had trauma inside her mouth or had a GI bleeding. Stroke alert was called, patient underwent CT head and CTA head and neck, negative for acute hemorrhage, mass effect or midline shift or any fractures. Also negative for large intracranial vessel occlusion. Patient was started on pantoprazole and octreotide drip in the ED. Lab results were significant for WBC of 14, CO2 17.3, creatinine 3.6, BUN 22, glucose 281, lactic acid 2.3. UA showed 3+ protein, 3+ glucose, 9 WBC, 6 RBCs and 4+ bacteria. We will admit the patient for management of acute encephalopathy following generalized tonic-clonic seizure. Patient received a dose of Keppra in the ED. Teleneurology was consulted. We will obtain EEG, MRI brain, frequent neurochecks, swallow evaluation. We will obtain GI consult for possible upper GI bleed. We will continue with pantoprazole IV and keep patient n.p.o. for now. Started on Rocephin IV for sepsis secondary to UTI, cultures were obtained. Patient started on insulin sliding scale for type 2 diabetes. We will obtain nephrology consult for hemodialysis in-house. We will hold antiplatelets in setting of possible GI bleed. Renata Zamora MD
[2024-11-29] VITALS (9 sets, daily range): BP systolic 139–184; BP diastolic 77–109; PULSE 79–106; RESP 12–23; TEMP 36.2–36.9; O2SAT 97–100; BMI 24.6; BMI 24.5
--- NOTE | 2024-11-29 00:45 | PC.NURSE ---
ATTEMPT TO CALL REPORT, NURSE NOT READY. WILL CALL BACK IN 20 MINUTES.
[2024-11-29] MEDS: cefTRIAXone/D5w 1gm IV premix 1 GM/50 ML BAG IV ×2 (00:59→20:33)
--- NOTE | 2024-11-29 01:08 | PC.NURSE ---
REPORT CALLED TO FLOOR NURSE.
--- NOTE | 2024-11-29 01:09 | PC.NURSE ---
REPORT CALLED TO FLOOR NURSE
[2024-11-29 01:37] LABS: Reflex Lactate? Y
[2024-11-29 02:24] LABS: Lactic Acid, 3 HR 1.5 mMol/L (0.4-2.0)
[2024-11-29 02:33] LABS: Basophils % (Auto) 0 % (0-2.5); Eosinophils % (Auto) 0 % (0-10); Hematocrit 45.5 % (36.0-46.0); Hemoglobin 14.5 g/dL (12.0-16.0); Immature Granulocytes % (Auto) 1 % (0-0); Immature Granulocytes Auto 0.09 Thou/mm3 (0.00-0.00); Lymphocytes # (Auto) 0.8 Thou/mm3 (1.0-4.8); Lymphocytes % (Auto) 5 % (10-50); Mean Corpuscular HGB Conc 31.9 g/dl (31.0-37.0); Mean Corpuscular Hemoglobin 30.5 pg (25.0-35.0); Mean Corpuscular Volume 96 fL (80-100); Monocytes # (Auto) 0.5 Thou/mm3 (0.0-0.8); Monocytes % (Auto) 3 % (0-12); Neutrophils # (Auto) 13.5 Thou/mm3 (1.8-7.7); Neutrophils % (Auto) 90 % (37-80); Nucleated Red Blood Cell # 0.03 Thou/mm3 (0.00-0.00); Nucleated Red Blood Cell % 0 /100 WBC (0); Platelet Count 271 Thou/mm3 (140-440); RDW Standard Deviation 57.5 fL (36.4-46.3); Red Blood Count 4.75 Miln/mm3 (4.00-5.20); White Blood Count 14.9 Thou/mm3 (3.6-11.0)
[2024-11-29 02:39] LABS: Glucose Estimated Average 85 mg/dL (80-131); Hemoglobin A1C 4.6 % Hgb (4.8-6.0)
[2024-11-29 02:46] LABS: Alanine Aminotransferase 12 U/L (10-49); Albumin, Serum 4.5 gm/dL (3.4-4.8); Albumin/Globulin Ratio 1.5 (1.2-2.2); Alkaline Phosphatase 95 U/L (46-116); Anion Gap 15 (7-16); Aspartate Amino Transferase 20 U/L (0-34); BUN/Creatinine Ratio 7 Ratio (12-20); Bilirubin,Total 0.2 mg/dL (0.3-1.2); Blood Urea Nitrogen 27 mg/dL (9-23); Calcium 10.5 mg/dL (8.3-10.6); Calcium (Corrected) 10.5 mg/dL (8.5-10.1); Carbon Dioxide 21.7 mMol/L (20.0-31.0); Chloride 103 mMol/L (98-107); Creatinine (Component) 3.8 mg/dL (0.6-1.3); Estimated Creatinine Clearance 15.2 mL/min (>60); Globulin 3.1 gm/dL (2.3-3.5); Glucose 190 mg/dL (74-106); Magnesium 2.4 mg/dL (1.6-2.6); Osmolality,Calculated 289 (275-295); Phosphorous 6.1 mg/dL (2.4-5.1); Potassium 4.5 mMol/L (3.4-5.1); Sodium 140 mMol/L (136-145); Total Protein 7.6 gm/dL (5.7-8.2); eGFR 13 See Note
--- NOTE | 2024-11-29 05:16 | PC.RT ---
SPOKE TO PT'S SISTER WHO WAS AT BEDSIDE REGARDING EEG ORDER. PT WAS ASLEEP AND RESTING COMFORTABLY. SISTER REQ EEG BE DONE LATER THIS MORNING SO SISTER COULD REST/SLEEP. PATT PALOMINO.
[2024-11-29] MEDS: ONDANSETRON INJ 2 MG/ML INJ 2 ML 4 MG IV ×3 (06:32→18:37)
--- NOTE | 2024-11-29 09:54 | XR_ITS ---
Examination: MRI of brain without intravenous contrast. MRI brain with intravenous contrast. Date and time of exam:November 29, 2024 1320 hours Comparison March 22, 2021 INDICATIONS:: New onset seizure yesterday Technique: Multiple axial and sagittal images of the brain to been obtained. Siemens high-resolution 1.52 Sera short bore scanner utilized. Sagittal sections, T1 weighted images, TR 500, TE 14, are performed. Axial sections proton-density and T2-weighted images have been obtained. Inversion recovery axial images, TR 9260, TE 111, TR 2500. Diffusion weighted images, axial sections, TR 4800, TE 128, B value 1000. Axial sections, ADC map, TR 4800, TE 128. Axial and coronal images were also obtained post 15 cc gadolinium administered intravenously. Findings:: Enlargement of the sella turcica is not present. The optic chiasm and infundibular stalk are not remarkable. There is no localized enlargement of the medulla or chio. Fourth ventricle and cerebellar tonsils appear normal in position. No subacute area of hemorrhage density is seen. Fourth ventricle is midline. Mass in the cerebellopontine angle region is not evident. 7th and 8th nerve complexes exhibit symmetry Globes are symmetrical Orbital musculature including medial lateral rectus muscles do not exhibit abnormality Increased white matter signal is evident involving the cortical gyri superior parietal occipital lobes Effacement of the cortical sulcal markings is not identified. Mass effect upon the ventricular system is not identified. Diffusion-weighted images demonstrate no focus of restricted diffusion Contrast images demonstrate no abnormal enhancement Impression: Negative for acute hemorrhage mass effect or midline shift No acute infarct Increased signal on the FLAIR images cortex of the parietal and occipital lobes posteriorly, consider encephalopathy, including proximal posterior encephalopathy, recommend correlation with clinical findings by neurology
--- NOTE | 2024-11-29 09:55 | PC.SS ---
Patient Edita Carmona 64 Year old female admitted for Upper GI Bleed, Seizure. SS met with patient and patient's Supa Carmona who reports patient lives at home with him. Supa reports that patient's daughter, Carmen Angulo is surrogate decision maker [phone]. Patient reports she is independent with ADL's, and does not utilize any source of DME to assist with ambulation. Patient's PCP is Catalina Angulo. At time of discharge patient will return home. Family will provide transportation. Next of Kin: Daughter, Carmen Angulo Discharge Plan: Home
[2024-11-29] MEDS: PANTOPRAZOLE INJ 40 MG VIAL IV ×2 (10:16→20:33)
--- NOTE | 2024-11-29 10:40 | CHAP ---
Patient was visited by the Spiritual Care Volunteer who prayed silent prayer for them. (Volunteer was in the hospital from 09:15-10:40).
--- NOTE | 2024-11-29 10:46 | ESPR_ITS ---
<Statement entered by Mason Webber MD - 11/30/24 07:19> Senior Resident Attestation: I supervised/discussed management plan with agronomy internship physician Dr. Schaeffer, and was involved in the care of this patient. I personally saw and examined the patient and discussed the assessment and plan with the entire medicine team, including my attending. I agree with the assessment and plan as documented. Patient's care was discussed with attending physician, Dr. Marie. Mason Webber MD PGY-2. Documentation for date of: 11/29/24 Subjective Subjective Interval history: Edita Carmona is a 64-year-old female with a past medical history of ESRD on HD M/W/F (previously on PD, stopped 03/2024), esophageal ulcers, CAD status post CABG, status post pacemaker placement 10/25/2024, T2DM, hypotension on midodrine who is admitted for management of UGIB, new onset generalized tonic seizure, and hypertensive emergency. 11/29: Seen and examined at bedside. Endorses some nausea without any more episodes of coffee-ground emesis, but continues to spit up similar content. Otherwise, denies abdominal pain. States that her peritoneal dialysis catheter will be permanently removed sometime next week. Given that she has been NPO, also requesting mouth swabs/ice chips. MRI planned for today and patient requesting something for anxiety. Exam Vital Signs Temp Pulse Resp BP Pulse Ox O2 Del Method O2 Flow Rate 97.8 F 98 21 H 144/77 H 100 Nasal Cannula 1 11/29/24 08:00 11/29/24 08:00 11/29/24 08:00 11/29/24 08:00 11/29/24 08:00 11/29/24 08:00 11/29/24 08:00 Narrative Exam General: AOx3, mild distress from nausea, able to speak full sentences HEENT: NC/AT, mucous membranes moist, bilateral sclera anicteric Cardiovascular: regular rate and rhythm, S1/S2 present, no murmurs appreciated Pulmonary: clear to auscultation bilaterally, no rales/rhonchi/wheezes Abdominal: peritoneal dialysis port with serosanguinous fluid in RUQ, soft, non- tender, non-distended, no rebound/guarding, normal bowel sounds present Musculoskeletal: normal ROM, no peripheral edema Skin: warm and dry, intact, no rashes Neuro: CN II-XII intact, no focal deficits Objective Labs 11/30/24 05:22 11/30/24 14:04 Labs: Laboratory Results - last 24 hr 11/28/24 11/28/24 11/28/24 17:44 18:49 22:32 WBC 14.0 H RBC 4.98 Hgb 15.2 Hct 47.0 H MCV 94 MCH 30.5 MCHC 32.3 RDW Std Deviation 55.1 H Plt Count 302 Neut % (Auto) 93 H Lymph % (Auto) 4 L [place] % (Auto) 2 Eos % (Auto) 0 Baso % (Auto) 1 Neut # (Auto) 13.0 H Lymph # (Auto) 0.5 L [place] # (Auto) 0.3 Eos # (Auto) 0.0 Baso # (Auto) 0.1 Immature Gran # (Auto) 0.13 H Absolute Nucleated RBC 0.00 Immature Gran % 1 H Nucleated RBC % 0 PT 11.2 INR 1.0 APTT 27.4 D Sodium 139 Potassium 4.0 Chloride 101 Carbon Dioxide 17.3 L Anion Gap 21 H BUN 22 Creatinine 3.6 H Estim Creat Clear Calc 16.0 L eGFR 14 L* BUN/Creatinine Ratio 6 L Glucose [address] Glu mg/dL Hemoglobin A1c Calculated Osmolality 290 Lactic Acid 2.3 H Calcium 11.1 H Corrected Calcium 11.1 H Phosphorus 4.8 Magnesium 2.1 Total Bilirubin 0.4 AST 24 14 ALT 14 Alkaline Phosphatase 99 Lactate Dehydrogenase 216 Total Creatine Kinase 34 Troponin I < 0.020 Total Protein 8.2 Albumin 4.8 Globulin 3.4 Albumin/Globulin Ratio 1.4 TSH 0.51 L Free T4 1.48 Ur Collection Type Clean Catch Urine Color Lt-Yellow Urine Clarity Turbid A Urine pH 8.5 H Ur Specific [place] 1.012 Urine Protein 3+ A Urine Glucose (UA) 3+ A Urine Ketones 1+ A Urine Blood Negative Urine Nitrite Negative Urine Bilirubin Negative Urine Urobilinogen (Auto) Negative Ur Leukocyte Esterase Negative Urine RBC 6 H Urine WBC 9 H Ur Squamous Epith Cells 10 H Urine Bacteria 4+ A Blood Type A Positive Antibody Screen NEGATIVE Blood Bank Wristband ID Yes 11/29/24 02:17 WBC 14.9 H RBC 4.75 Hgb 14.5 Hct 45.5 MCV 96 MCH 30.5 MCHC 31.9 RDW Std Deviation 57.5 H Plt Count 271 D Neut % (Auto) 90 H Lymph % (Auto) 5 L [place] % (Auto) 3 Eos % (Auto) 0 Baso % (Auto) 0 Neut # (Auto) 13.5 H Lymph # (Auto) 0.8 L [place] # (Auto) 0.5 Eos # (Auto) 0.0 Baso # (Auto) 0.0 Immature Gran # (Auto) 0.09 H Absolute Nucleated RBC 0.03 H Immature Gran % 1 H Nucleated RBC % 0 PT INR APTT Sodium 140 Potassium 4.5 D Chloride 103 Carbon Dioxide 21.7 Anion Gap 15 BUN 27 H Creatinine 3.8 H Estim Creat Clear Calc 15.2 L eGFR 13 L* BUN/Creatinine Ratio 7 L Glucose [address] Glu mg/dL 85 Hemoglobin A1c 4.6 L Calculated Osmolality 289 Lactic Acid 1.5 Calcium 10.5 Corrected Calcium 10.5 H Phosphorus 6.1 H Magnesium 2.4 Total Bilirubin 0.2 L AST 20 ALT 12 Alkaline Phosphatase 95 Lactate Dehydrogenase Total Creatine Kinase Troponin I Total Protein 7.6 Albumin 4.5 Globulin 3.1 Albumin/Globulin Ratio 1.5 TSH Free T4 Ur Collection Type Urine Color Urine Clarity Urine pH Ur Specific [place] Urine Protein Urine Glucose (UA) Urine Ketones Urine Blood Urine Nitrite Urine Bilirubin Urine Urobilinogen (Auto) Ur Leukocyte Esterase Urine RBC Urine WBC Ur Squamous Epith Cells Urine Bacteria Blood Type Antibody Screen Blood Bank Wristband ID Quality Measures Quality Measures VTE prophylaxis Assessment & Plan Assessment Current Active Medications: Generic Name Dose Route Start Last Admin Trade Name Freq PRN Reason Stop Dose Admin Acetaminophen 650 mg 11/28/24 23:19 Acetaminophen 325 Mg Tablet PO 12/28/24 23:18 Q6H PRN Fever >100.3 or pain 1-3 Protocol Acetaminophen 650 mg 11/29/24 08:43 Acetaminophen Supp 650 Mg Supp NH 12/28/24 23:18 Q6HR PRN Fever > 100.3 or pain 1-3 Protocol Dextrose 25 ml 11/28/24 23:29 Dextrose 50%-Water Inj 50 Ml Syringe IV 12/28/24 23:28 Q15MIN PRN BG 50-70 responsive npo pt Dextrose 50 ml 11/28/24 23:29 Dextrose 50%-Water Inj 50 Ml Syringe IV 12/28/24 23:28 Q15MIN PRN BG <50 OR BG <70 & pt unresponsive Glucagon 1 mg 11/28/24 23:29 Glucagon Inj 1 Mg Vial IM Q15MIN PRN BG <70, and no IV access Ceftriaxone Sodium/Dextrose 1 gm in 50 mls @ 100 mls/hr 11/28/24 23:36 11/29/24 00:59 Rocephin/D5w 1gm Iv Premix IV 12/05/24 23:35 100 mls/hr QDAY@2100 ALEX Administration Insulin Human Lispro 0 unit 11/29/24 07:30 11/29/24 07:33 Insulin Lispro (Admelog) 1 Unit/0.01 Ml Unit SC 12/29/24 07:29 Not Given AC ALEX Protocol Labetalol HCl 10 mg 11/28/24 23:33 Labetalol Inj 5 Mg/Ml Vial 20 Ml IVP 12/28/24 23:44 Q2H PRN SBP>180, hold if HR<60 Ondansetron HCl 4 mg 11/29/24 06:22 11/29/24 06:32 Ondansetron Inj 2 Mg/Ml Inj 2 Ml IV 12/29/24 06:21 4 mg Q8HR PRN Administration NAUSEA OR VOMITING Protocol Pantoprazole Sodium 40 mg 11/29/24 10:00 11/29/24 10:16 Pantoprazole Inj 40 Mg Vial IV 12/29/24 09:59 40 mg BID ALEX Administration Sennosides 1 tab 11/28/24 23:19 Senna Tablet PO 12/28/24 23:18 QDAY PRN constipation Protocol Plan Edita Carmona is a 64-year-old female with a past medical history of ESRD on HD M/W/F (previously on PD, stopped 03/2024), esophageal ulcers, CAD status post CABG, status post pacemaker placement 10/25/2024, T2DM, hypotension on midodrine who is admitted for management of UGIB, new onset generalized tonic seizure, and hypertensive emergency. #Episode of generalized tonic seizure #Acute encephalopathy Suspec to be due to upper GI bleed vs possible infection. Received 2 mg of lorazepam IV, did not have repeat seizures. Family denies history of seizures. Blood sugar on admission was 96. CT head, CTA head and neck negative for acute stroke, bleeding, fracture, large vessel occlusion. Possible provoking factors could be upper GI bleed, UTI, peritoneal catheter infection, metabolic encephalopathy. Lactate was 2.3, went down to 1.2. ? Neurology consulted, appreciate recommendations ? Neuro Checks q4hr ? Gradual reduction of BP in setting of hypertensive emergency ? MRI brain w/wo contrast coordinated for dialysis afterwards ? Routine EEG ? Blood cultures 11/28: Pending ? Urine cultures ordered ? Peritoneal fluid cultures and differential ordered #Upper GI bleed #History of esophageal ulcers Presented with coffee-ground emesis. EGD in 2022 was positive for multiple esophageal ulcers. In the ED patient was started on octreotide. T. bili is 0.2, AST 20, ALT 12, no history of liver disease. Low suspicion for esophageal varices, will not proceed with octreotide drip for now. ? GI consulted, appreciate recommendations ? N.p.o. now ? Pantoprazole 40 mg twice daily ? Monitor daily CBC, transfuse if hemoglobin less than 7 #Hypertensive emergency In ED blood pressure went up to 220/122 and received hydralazine and labetalol IV. ? Gradual reduction of BP, goal is 10 to 20% in first hour, 5 to 15% in next 23 hours with ultimate goal of 160/120 ? Labetalol 10 mg every 2 hours if SBP > 180 #UTI UA was positive for signs of UTI, though contaminated and no urinary symptoms ? Urine cultures ordered ? Ceftriaxone 1 g daily #History of peritonitis Per family, patient did not report any abdominal pain in the previous few days. ? Peritoneal fluid differential and cultures ordered ? Empiric Rocephin #History of type 2 diabetes, A1c 4.6% ? SSI with Accu-Cheks ? Hypoglycemic protocol #ESRD on hemodialysis ? Nephrology consulted for inpatient hemodialysis ? Plan for hemodialysis after MRI with contrast #CAD s/p CABG Stable. ? Aspirin and plavix held given UGIB Hospital management: Disposition: pending GI and neuro recs Fluids: none, pending dialysis today Diet: NPO for possible GI procedure Lines: PIV DVT prophylaxis: SCDs GI prophylaxis: pantoprazole 40 mg IV BID CODE STATUS: full code ----- Plan discussed with attending physician Dr. Cynthia Schaeffer MD PGY-1 Internal Medicine Attending Provider Attestation/Addendum Face to face evaluation was performed by me. I have personally seen and examined the patient. I discussed the assessment and plan with the entire medicine team. I reviewed available medical records, imaging studies, laboratory results. I agree with the above subjective data, objective findings, assessment and plan except as corrected by me or noted below #Episode of generalized tonic seizure #Acute encephalopathy, due to above # Possible hematemesis, upper GI bleed #History of esophageal ulcers Hypertensive emergency with acute encephalopathy as above Continue with IV PPI, GI consult. Monitor H&H closely. Hemoglobin not low for now. Seizure workup with EEG Continue antihypertensives, monitor blood pressure closely More than > 30 minutes spent on the encounter
[2024-11-29] MEDS: LABETALOL INJ 5 MG/ML VIAL 20 ML 10 MG IVP (12:07)
--- NOTE | 2024-11-29 12:41 | PD.RESCONSUL ---
HPI Data of Consult Requesting Physician: Terrell Marie MD Admitting Provider: Renata Zamora MD Attending Provider: Terrell Marie MD Primary Care Provider: DARIAN Winter([facility]) Consult Narrative Reason for consult: Coffee-ground emesis History of present illness: 64-year-old female with past medical history of ESRD on HD (M/W/F), coronary artery disease status post CABG and pacemaker placement, type 2 diabetes, hypotension on midodrine presents to the ED on 11/28 with episode of weakness and coffee-ground emesis. Patient denies any fever, chills, chest pain/tightness, shortness of breath, melena hematochezia, abdominal pain or any recent sick contacts. Patient was admitted for seizure which was noted in the ED as generalized tonic-clonic, hypertensive emergency with superimposed possible upper GI bleed. Patient has recent upper endoscopy on August 2023 which showed gastroesophageal reflux disease, gastritis and a diaphragmatic hernia. Patient also had an EGD from 02/15/2023 which showed multiple ulcers in the mid and distal esophagus, gastritis, diaphragmatic hernia without obstruction or gangrene in the hiatal hernia. Patient does have some risk factors for developing upper GI bleed secondary to history of esophageal ulcers and gastritis from NSAID use and antithrombotic medications. Patient is currently taking aspirin 81 mg, Plavix 75 mg every day but does also take pantoprazole 40 mg twice a day which provides some protection against NSAID induced gastritis and peptic ulcer disease formation. Medical history: As stated above Surgical history: Gastric sleeve, history of peritoneal dialysis port insertion, hysterectomy and x 3 Allergies: NKDA Medications: As listed Family history: No family history of colon cancer Social history: Patient denies alcohol, tobacco or illicit drug use. ROS: All 12 systems assessed and the patient denies unless otherwise stated in HPI. cc:: cc: Terrell Marie MD Exam Vital Signs Temp Pulse Resp BP Pulse Ox O2 Del Method O2 Flow Rate 98.4 F 106 H 19 184/106 H 100 Nasal Cannula 1 11/29/24 11:52 11/29/24 12:07 11/29/24 11:52 11/29/24 12:07 11/29/24 11:52 11/29/24 11:52 11/29/24 11:52 Narrative Exam Physical Exam: GENERAL: Awake, answering questions appropriately, appears stated age, frail appearing HEENT: NC/AT. Moist mucosa. PERRLA/EOMI. Conjunctival pallor noted CARDIO: Heart RRR, no obvious murmurs, no JVD. PULM: No coughing or visible SOB. Lungs CTA B/L. GI: Peritoneal dialysis port with in RUQ, soft, non-tender, non-distended, no rebound/guarding, borborygmi apparent SKIN/MSK/EXT: No wounds/discoloration/rashes/edema/amputations noted. +Pedal pulses present B/L. NEURO: Oriented x3, no focal neurologic deficits noted, Moves extremities x4. Results Labs 11/29/24 02:17 11/29/24 02:17 Labs: Short CBC 11/28/24 11/29/24 Range/Units 17:44 02:17 WBC 14.0 H 14.9 H (3.6-11.0) Thou/mm3 Hgb 15.2 14.5 (12.0-16.0) g/dL Hct 47.0 H 45.5 (36.0-46.0) % Plt Count 302 271 D (140-440) Thou/mm3 BMP 11/28/24 11/29/24 17:44 02:17 Sodium 139 140 Potassium 4.0 4.5 D Chloride 101 103 Carbon Dioxide 17.3 L 21.7 BUN 22 27 H Creatinine 3.6 H 3.8 H Glucose 281 H 190 H D Calcium 11.1 H 10.5 Cardiac Enzymes 11/28/24 11/28/24 Range/Units 17:44 22:32 Total Creatine Kinase 34 (34-171) U/L Troponin I < 0.020 (0.0-0.045) ng/mL Liver Function 11/28/24 11/28/24 11/29/24 Range/Units 17:44 22:32 02:17 Total Bilirubin 0.4 0.2 L (0.3-1.2) mg/dL AST 24 14 20 (0-34) U/L ALT 14 12 (10-49) U/L Alkaline Phosphatase 99 95 (46-116) U/L Albumin 4.8 4.5 (3.4-4.8) gm/dL Urine 11/28/24 Range/Units 18:49 Urine Color Lt-Yellow (Lt Yel-Yel) Urine Clarity Turbid A (Clear/Hazy) Urine pH 8.5 H (5.0-7.0) Ur Specific [place] 1.012 (1.001-1.035) Urine Protein 3+ A (Neg - Trace) Urine Glucose (UA) 3+ A (Negative) Quality Measures Quality Measures VTE prophylaxis Medications Home Medications and Allergies Home Medications ?Medication ?Instructions ?Recorded ?Confirmed ?Type atorvastatin 20 mg tablet 20 mg PO QDAY 09/15/23 11/28/24 History calcitriol 0.25 mcg capsule 0.5 mcg PO .qhs 09/15/23 11/28/24 History docusate sodium 250 mg capsule 250 mg PO BID 09/15/23 11/28/24 History furosemide 80 mg tablet 80 mg PO QDAY PRN SOB 09/15/23 11/29/24 History loratadine 10 mg tablet 10 mg PO QDAY 09/15/23 11/29/24 History Held on 09/15/23. Instructions: Resume on 09/16/23. losartan 50 mg tablet 50 mg PO QDAY 09/15/23 11/29/24 History metoprolol tartrate 50 mg tablet 50 mg PO QDAY 09/15/23 11/29/24 History pantoprazole 40 mg tablet,delayed 40 mg PO BID 09/15/23 11/29/24 History release acetaminophen 325 mg capsule 325 mg PO PRN PRN pain 11/28/24 11/28/24 History aspirin 81 mg tablet,delayed 81 mg PO QDAY 11/28/24 11/28/24 History release (Adult Low Dose Aspirin) atorvastatin 40 mg tablet 40 mg PO QDAY 11/28/24 11/28/24 History clopidogrel 75 mg tablet 75 mg PO QDAY 11/28/24 11/28/24 History duloxetine 30 mg capsule,delayed 30 mg PO BID 11/28/24 11/28/24 History release (Cymbalta) linagliptin 5 mg tablet (Tradjenta) 5 mg PO QDAY 11/28/24 11/28/24 History metoclopramide HCl 5 mg tablet 5 mg PO PRN PRN nausea 11/28/24 11/28/24 History (Reglan) midodrine 10 mg tablet 10 mg PO TID PRN SBP under 130 11/28/24 11/28/24 History Allergies Allergy/AdvReac Type Severity Reaction Status Date / Time No Known Allergies Allergy Verified 11/28/24 14:45 Visit Medications Acetaminophen (Acetaminophen 325 Mg Tablet) 650 mg PO Q6H PRN; Protocol PRN Reason: Fever >100.3 or pain 1-3 Stop: 12/28/24 23:18 Acetaminophen (Acetaminophen Supp 650 Mg Supp) 650 mg MA Q6HR PRN; Protocol PRN Reason: Fever > 100.3 or pain 1-3 Stop: 12/28/24 23:18 Dextrose (Dextrose 50%-Water Inj 50 Ml Syringe) 25 ml IV Q15MIN PRN PRN Reason: BG 50-70 responsive npo pt Stop: 12/28/24 23:28 Dextrose (Dextrose 50%-Water Inj 50 Ml Syringe) 50 ml IV Q15MIN PRN PRN Reason: BG <50 OR BG <70 & pt unresponsive Stop: 12/28/24 23:28 Glucagon (Glucagon Inj 1 Mg Vial) 1 mg IM Q15MIN PRN PRN Reason: BG <70, and no IV access Ceftriaxone Sodium/Dextrose (Rocephin/D5w 1gm Iv Premix) 1 gm in 50 mls @ 100 mls/hr IV QDAY@2100 [facility] Stop: 12/05/24 23:35 Last Admin: 11/29/24 00:59 Dose: 100 mls/hr Insulin Human Lispro (Insulin Lispro (Admelog) 1 Unit/0.01 Ml Unit) 0 unit SC AC [facility]; Protocol Stop: 12/29/24 07:29 Last Admin: 11/29/24 12:19 Dose: Not Given Labetalol HCl (Labetalol Inj 5 Mg/Ml Vial 20 Ml) 10 mg IVP Q2H PRN PRN Reason: SBP>180, hold if HR<60 Stop: 12/28/24 23:44 Last Admin: 11/29/24 12:07 Dose: 10 mg Ondansetron HCl (Ondansetron Inj 2 Mg/Ml Inj 2 Ml) 4 mg IV Q6HR PRN; Protocol PRN Reason: NAUSEA OR VOMITING Stop: 12/29/24 06:21 Last Admin: 11/29/24 12:16 Dose: 4 mg Pantoprazole Sodium (Pantoprazole Inj 40 Mg Vial) 40 mg IV BID [facility] Stop: 12/29/24 09:59 Last Admin: 11/29/24 10:16 Dose: 40 mg Sennosides (Senna Tablet) 1 tab PO QDAY PRN; Protocol PRN Reason: constipation Stop: 12/28/24 23:18 Discontinued Medications Acetaminophen (Acetaminophen Supp 650 Mg Supp) 650 mg MA Q6HR PRN; Protocol PRN Reason: Fever > 100.3 or pain 1-3 Stop: 12/28/24 23:18 Famotidine (Famotidine Inj 10 Mg/Ml Vial 2 Ml) 20 mg IV X1 ONE Stop: 11/28/24 16:51 Last Admin: 11/28/24 18:50 Dose: 20 mg Hydralazine HCl (Hydralazine Inj 20 Mg/Ml Vial) 10 mg IV X1 ONE Stop: 11/28/24 22:35 Last Admin: 11/28/24 22:52 Dose: 10 mg Octreotide Acetate 1,000 mcg/ (Sodium Chloride) 102 mls @ 5.1 mls/hr IV .Q20H ALEX; Protocol Stop: 12/29/24 12:50 Octreotide Acetate 1,000 mcg/ (Sodium Chloride) 102 mls @ 5.1 mls/hr IV .Q20H ONE; Protocol Stop: 11/29/24 12:59 Last Admin: 11/28/24 21:27 Dose: 50 mcg/hr, 5.1 mls/hr Pantoprazole Sodium (Protonix/Ns 80mg Iv Premix) 80 mg in 100 mls @ 10 mls/hr IV X1 ONE Stop: 11/29/24 08:01 Last Admin: 11/28/24 22:58 Dose: 10 mls/hr Labetalol HCl (Labetalol Inj 5 Mg/Ml Vial 20 Ml) 20 mg IV X1 ONE Stop: 11/28/24 16:49 Last Admin: 11/28/24 18:42 Dose: 20 mg Labetalol HCl (Labetalol Inj 5 Mg/Ml Vial 20 Ml) 20 mg IVP X1 ONE Stop: 11/28/24 21:32 Last Admin: 11/28/24 21:38 Dose: 20 mg Lorazepam (Lorazepam 2 Mg/Ml Vial) 2 mg IVP X1 ONE Stop: 11/28/24 20:38 Last Admin: 11/28/24 20:23 Dose: 2 mg Lorazepam (Lorazepam 2 Mg/Ml Vial) 0.5 mg IVP X1 ONE Stop: 11/29/24 12:22 Metoclopramide HCl (Metoclopramide Inj 5 Mg/Ml Vial 2 Ml) 10 mg IV X1 ONE Stop: 11/28/24 16:51 Last Admin: 11/28/24 18:50 Dose: 10 mg Octreotide Acetate (Octreotide Acet Inj 50 Mcg/Ml Vial) 50 mcg IV X1 ONE Stop: 11/28/24 20:01 Last Admin: 11/28/24 20:29 Dose: 50 mcg Ondansetron HCl (Ondansetron Inj 2 Mg/Ml Inj 2 Ml) 8 mg IV Q2HR PRN PRN Reason: Vomiting Stop: 11/28/24 22:01 Last Admin: 11/28/24 18:44 Dose: 8 mg Ondansetron HCl (Ondansetron Inj 2 Mg/Ml Inj 2 Ml) 4 mg IV Q8HR PRN; Protocol PRN Reason: NAUSEA OR VOMITING Stop: 12/29/24 06:21 Last Admin: 11/29/24 06:32 Dose: 4 mg Pantoprazole Sodium (Pantoprazole Inj 40 Mg Vial) 40 mg IVP X1 ONE Stop: 11/28/24 16:51 Last Admin: 11/28/24 18:49 Dose: 40 mg Assessment & Plan Plan #Stable upper GI bleed #History of esophageal ulcers #History of peritonitis #History of gastritis Per HPI above, patient presented with one episode of upper GI bleed characterized by coffee-ground emesis Patient has some risk factors for developing upper GI bleed; moreover, has history of esophageal ulcers in the past which were stable Patient is on aspirin and Plavix secondary to coronary artery disease Patient also has hypertensive urgency at this time with systolic blood pressure 184/106 and tachycardia with a heart rate of 106 Patient's hemoglobin is fairly stable with mild down trended from 15.2 ==> 14.5 over 9 hours Liver function is stable with AST of 20, ALT 12 and alk phosphatase of 95, total bilirubin at 0.2 Plan: Continue to monitor H&H Continue Protonix 40 mg IV twice daily Can discontinue ceftriaxone once peritoneal fluid analysis is negative Suspicion for acute GI bleed remains low at this time, but will continue to monitor Refer to outpatient gastroenterology for close follow-up #Diaphragmatic hernia #Gastroesophageal reflux disorder Patient is on home Protonix 40 mg p.o. twice daily As per upper endoscopy on August 2023 which showed gastroesophageal reflux disease, gastritis and a diaphragmatic hernia. Patient also had an EGD from 02/15/2023 which showed multiple ulcers in the mid and distal esophagus, gastritis, diaphragmatic hernia without obstruction or gangrene in the hiatal hernia Plan: Continue Protonix as above and transition to oral upon discharge #Generalized tonic-clonic seizure #Acute encephalopathy #Hypertensive emergency #UTI #Type 2 diabetes, [id number] #ESRD on HD #Coronary artery disease Rest of medical problems to be managed by the hospitalist team Thank you for the opportunity to participate in the care of this patient. Attending Provider Attestation/Addendum 64 years old female evaluated with the internal medicine team and the internal medicine PGY1 On further review of the history patient had multiple episodes of coffee-ground hematemesis yesterday Hemoglobin hemoglobin relatively stable Patient still nauseous Discussed in detail with the patient and possible fiberoptic esophagogastroduodenoscopy with therapeutic intervention tentatively scheduled for tomorrow Informed consent obtained N.p.o. at midnight tonight except p.o. meds
[2024-11-29] MEDS: LORazepam 2 MG/ML VIAL 0.5 MG IVP (12:54)
--- NOTE | 2024-11-29 13:40 | PC.SS ---
SS follow up note; MRI and EEG pending. GI on Board and Nephrology on board. When medically cleared patient will return home.
[2024-11-29 19:54] LABS: Amphetamine/Methamp Scrn,U Negative (Negative); Barbiturate Screen,Urine Negative (Negative); Benzodiazepines Screen,Urine Positive (Negative); Benzoylecgonine Screen, Ur Negative (Negative); Fentanyl Screen,Urine Negative (Negative); Opiate Screen,Urine Positive (Negative); THC Screen,Urine Positive (Negative)
--- NOTE | 2024-11-29 23:31 | PD.NEUROCONS ---
History of Present Illness Data of Consult Requesting Physician: Terrell Marie MD Primary Care Provider: DARIAN Winter([facility]) Consult Narrative cc:: cc: Terrell Marie MD Review of Systems Review of Systems Systems Reviewed: All systems reviewed, normal except as documented Past Medical History Past Medical History NEUROLOGIC: Positive Neurological Disorders and Cerebrovascular Accident (10 YEARS AGO - NO RESIDUAL EFFECTS); Negative Seizures CARDIAC: Positive Cardiac Disorders, Hypercholesterolemia, Hypertension and Hypotension; Negative Congestive Heart Failure RESPIRATORY: Negative Chronic Obstructive Pulmonary Disease (COPD) or Asthma GASTROINTESTINAL: Positive Gastrointestinal Disorders and Gastroesophageal Reflux Disease GENITOURINARY: Positive Genitourinary Disorders and Renal Disease (PERITONEAL DIALYSIS) MUSCULOSKELETAL: Negative Musculoskeletal Disorders ENDOCRINE: Positive Endocrine Disorders and Diabetes Mellitus Type 2 (DIET CONTROLLED - NO MEDS); Negative Diabetes Mellitus Type 1 HEMATOLOGIC: Negative Blood Disorders or Sickle Cell Disease OTHER HISTORY: Positive Chicken Pox, Measles and Mumps; Negative Blood Transfusions, Anesthesia Reactions or Cancer Family History FAMILY HISTORY: Positive Family Cancer Surgical History SURGICAL: Positive Abdominal Surgery (GASTRIC SLEEVE, PERITONEAL DIALYSIS PORT INSERTION), Hysterectomy and Section (X3) Social History SMOKING STATUS: Never smoker SUBSTANCE USE: does not use Meds Home Medications and Allergies Home Medications ?Medication ?Instructions ?Recorded ?Confirmed ?Type atorvastatin 20 mg tablet 20 mg PO QDAY 09/15/23 11/28/24 History calcitriol 0.25 mcg capsule 0.5 mcg PO .qhs 09/15/23 11/28/24 History docusate sodium 250 mg capsule 250 mg PO BID 09/15/23 11/28/24 History furosemide 80 mg tablet 80 mg PO QDAY PRN SOB 09/15/23 11/29/24 History loratadine 10 mg tablet 10 mg PO QDAY 09/15/23 11/29/24 History Held on 09/15/23. Instructions: Resume on 09/16/23. losartan 50 mg tablet 50 mg PO QDAY 09/15/23 11/29/24 History metoprolol tartrate 50 mg tablet 50 mg PO QDAY 09/15/23 11/29/24 History pantoprazole 40 mg tablet,delayed 40 mg PO BID 09/15/23 11/29/24 History release acetaminophen 325 mg capsule 325 mg PO PRN PRN pain 11/28/24 11/28/24 History aspirin 81 mg tablet,delayed 81 mg PO QDAY 11/28/24 11/28/24 History release (Adult Low Dose Aspirin) atorvastatin 40 mg tablet 40 mg PO QDAY 11/28/24 11/28/24 History clopidogrel 75 mg tablet 75 mg PO QDAY 11/28/24 11/28/24 History duloxetine 30 mg capsule,delayed 30 mg PO BID 11/28/24 11/28/24 History release (Cymbalta) linagliptin 5 mg tablet (Tradjenta) 5 mg PO QDAY 11/28/24 11/28/24 History metoclopramide HCl 5 mg tablet 5 mg PO PRN PRN nausea 11/28/24 11/28/24 History (Reglan) midodrine 10 mg tablet 10 mg PO TID PRN SBP under 130 11/28/24 11/28/24 History Allergies Allergy/AdvReac Type Severity Reaction Status Date / Time No Known Allergies Allergy Verified 11/28/24 14:45 Exam - Neurology Vital Signs Temp Pulse Resp BP Pulse Ox O2 Del Method O2 Flow Rate 98.0 F 95 12 158/86 H 100 Nasal Cannula 1 11/29/24 20:00 11/29/24 20:00 11/29/24 20:00 11/29/24 20:00 11/29/24 20:00 11/29/24 20:00 11/29/24 20:00 Narrative Exam GENERAL APPEARANCE: Well hydrated, well-nourished in no acute distress. HEENT: Normocephalic, atraumatic, extraocular movements intact. Pupils: Equal reacting to light and accommodation NECK: Supple, no JVD or bruits. CARDIOVASULAR: Heart: S1, S2 heard, regular without S3-S4 or murmur no rubs or gallops. LUNGS/CHEST: Clear to auscultation bilaterally. No rails, rhonchi, or wheezing. Normal inspection. ABDOMEN: Soft, nontender, with normal bowel sounds. No pulsatile masses. No rebound, rigidity, or guarding. Normal inspection and palpation. EXTREMITIES: Normal inspection and palpation. No edema, clubbing or cyanosis. SKIN: Warm and dry without rashes. Normal inspection. MUSCULOSKELETAL: No cervical, thoracic, lumbar or midline bony tenderness. Normal inspection. NEURO: Alert, awake and oriented x3. Cranial nerves: II through XII grossly intact. Speech and language: Normal with no dysarthria or dysphasia. Motor system: Tone and bulk: Normal: Strength: 5 out of 5 in all 4 extremities; No pronator drift noted. Deep tendon reflexes: 2+ bilaterally symmetrical. Plantar reflex: Downgoing bilaterally. Sensory system: Intact to all modalities of sensation bilaterally. Coordination: Intact to [id number] and [id number] test bilaterally. No ataxia, no dysmetria, or dysdiadochokinesia noted. No intention tremors noted. Gait: Not tested. No signs of meningeal irritation noted. PSYCHIATRIC: Normal mood and affect. Results Labs 11/29/24 02:17 11/29/24 02:17 Labs: Short CBC 11/29/24 Range/Units 02:17 WBC 14.9 H (3.6-11.0) Thou/mm3 Hgb 14.5 (12.0-16.0) g/dL Hct 45.5 (36.0-46.0) % Plt Count 271 D (140-440) Thou/mm3 BMP 11/29/24 02:17 Sodium 140 Potassium 4.5 D Chloride 103 Carbon Dioxide 21.7 BUN 27 H Creatinine 3.8 H Glucose 190 H D Calcium 10.5 Liver Function 11/29/24 Range/Units 02:17 Total Bilirubin 0.2 L (0.3-1.2) mg/dL AST 20 (0-34) U/L ALT 12 (10-49) U/L Alkaline Phosphatase 95 (46-116) U/L Albumin 4.5 (3.4-4.8) gm/dL Assessment & Plan Assessment and plan (1) New onset seizure without head trauma: Status: Acute Assessment and plan: Likely secondary to posterior reversible encephalopathy syndrome: Uncontrolled hypertension. Continued with the blood pressure monitoring and control. Follow-up with EEG MRI brain showed findings consistent with a posterior reversible encephalopathy syndrome. Patient is advised to continue with lorazepam as needed. (2) Severe sepsis: Status: Acute Assessment and plan: Continue with IV fluids and antibiotics (3) Diabetes: Status: Acute Assessment and plan: Check fingerstick glucose and sliding scale insulin (4) End stage renal disease on dialysis due to type 2 diabetes mellitus: Status: Acute Assessment and plan: On dialysis 3 days a week
[2024-11-30] VITALS (30 sets, daily range): BP systolic 96–196; BP diastolic 63–131; PULSE 63–106; RESP 12–23; TEMP 36.2–36.9; O2SAT 92–100; BMI 25.9
[2024-11-30 05:27] LABS: Basophils # (Auto) 0.1 Thou/mm3 (0.0-0.2); Basophils % (Auto) 1 % (0-2.5); Eosinophils % (Auto) 0 % (0-10); Hematocrit 43.7 % (36.0-46.0); Hemoglobin 13.7 g/dL (12.0-16.0); Immature Granulocytes % (Auto) 1 % (0-0); Immature Granulocytes Auto 0.21 Thou/mm3 (0.00-0.00); Lymphocytes # (Auto) 1.8 Thou/mm3 (1.0-4.8); Lymphocytes % (Auto) 12 % (10-50); Mean Corpuscular HGB Conc 31.4 g/dl (31.0-37.0); Mean Corpuscular Hemoglobin 30.2 pg (25.0-35.0); Mean Corpuscular Volume 97 fL (80-100); Monocytes % (Auto) 7 % (0-12); Neutrophils # (Auto) 12.7 Thou/mm3 (1.8-7.7); Neutrophils % (Auto) 80 % (37-80); Nucleated Red Blood Cell # 0.05 Thou/mm3 (0.00-0.00); Nucleated Red Blood Cell % 0 /100 WBC (0); Platelet Count 399 Thou/mm3 (140-440); Red Blood Count 4.53 Miln/mm3 (4.00-5.20); White Blood Count 15.9 Thou/mm3 (3.6-11.0)
[2024-11-30 06:04] LABS: Alanine Aminotransferase 9 U/L (10-49); Albumin, Serum 4.5 gm/dL (3.4-4.8); Albumin/Globulin Ratio 1.6 (1.2-2.2); Alkaline Phosphatase 91 U/L (46-116); Anion Gap 16 (7-16); Aspartate Amino Transferase 14 U/L (0-34); BUN/Creatinine Ratio 7 Ratio (12-20); Bilirubin,Total 0.3 mg/dL (0.3-1.2); Blood Urea Nitrogen 37 mg/dL (9-23); Calcium 9.5 mg/dL (8.3-10.6); Calcium (Corrected) 9.5 mg/dL (8.5-10.1); Carbon Dioxide 21.6 mMol/L (20.0-31.0); Chloride 100 mMol/L (98-107); Creatinine (Component) 5.3 mg/dL (0.6-1.3); Globulin 2.9 gm/dL (2.3-3.5); Glucose 159 mg/dL (74-106); Magnesium 2.5 mg/dL (1.6-2.6); Osmolality,Calculated 287 (275-295); Phosphorous 6.3 mg/dL (2.4-5.1); Sodium 138 mMol/L (136-145); Total Protein 7.4 gm/dL (5.7-8.2); eGFR 9 See Note
[2024-11-30] MEDS: ALBUTEROL/IPRATROPIUM (Duoneb) RT SOL 3 ML NEBU INH (06:33)
[2024-11-30] MEDS: ONDANSETRON INJ 2 MG/ML INJ 2 ML 4 MG IV ×3 (07:40→21:50)
[2024-11-30] MEDS: LABETALOL INJ 5 MG/ML VIAL 20 ML 10 MG IVP ×2 (07:46→12:04)
--- NOTE | 2024-11-30 09:32 | PC.NURSE ---
UF GOAL LOWERED PER PT REQUEST TO 1L TOLERATED. PT DENIES ALL COMPLAINTS THIS TIME WILL CONT. TO MONITOR
--- NOTE | 2024-11-30 09:46 | PC.NURSE ---
BP TRENDING DOWN WILL ADMIN PRN ALBUMIN 25/100ML PER MD ORDERS AND CONT. TO MONITOR
[2024-11-30] MEDS: ALBUMIN HUMAN 25% IVPB 25 GM/100 ML BTL IV (09:47)
--- NOTE | 2024-11-30 10:47 | ESPR_ITS ---
<Statement entered by Mason Webber MD - 11/30/24 12:11> Senior Resident Attestation: I supervised/discussed management plan with science intern physician Dr. Schaeffer, and was involved in the care of this patient. I personally saw and examined the patient and discussed the assessment and plan with the entire medicine team, including my attending. I agree with the assessment and plan as documented. Patient's care was discussed with attending physician, Dr. Marie. Mason Webber MD PGY-2. Documentation for date of: 11/30/24 Subjective Subjective Interval history: Edita Carmona is a 64-year-old female with a past medical history of ESRD on HD M/W/F (previously on PD, stopped 03/2024), esophageal ulcers, CAD status post CABG, status post pacemaker placement 10/25/2024, T2DM, hypotension on midodrine who is admitted for management of UGIB, new onset generalized tonic seizure, and hypertensive emergency. 11/29: Seen and examined at bedside. Endorses some nausea without any more episodes of coffee-ground emesis, but continues to spit up similar content. Otherwise, denies abdominal pain. States that her peritoneal dialysis catheter will be permanently removed sometime next week. Given that she has been NPO, also requesting mouth swabs/ice chips. MRI planned for today and patient requesting something for anxiety. 11/30: No acute overnight events noted. Seen and examined at bedside while undergoing dialysis, tolerating well. Continues to have nausea and vomiting light brown-colored material. Denies any abdominal pain, fever, chills. Spoke to GI over the phone, plan for EGD today. Exam Vital Signs Temp Pulse Resp BP Pulse Ox O2 Del Method O2 Flow Rate 98.4 F 79 16 138/81 H 99 Room Air 1 11/30/24 08:01 11/30/24 10:30 11/30/24 08:01 11/30/24 10:30 11/30/24 08:01 11/30/24 08:00 11/30/24 06:34 Narrative Exam General: AOx3, mild distress from nausea, able to speak full sentences HEENT: NC/AT, mucous membranes moist, bilateral sclera anicteric Cardiovascular: regular rate and rhythm, S1/S2 present, no murmurs appreciated Pulmonary: clear to auscultation bilaterally, no rales/rhonchi/wheezes Abdominal: peritoneal dialysis port with serosanguinous fluid in RUQ, soft, non- tender, non-distended, no rebound/guarding Musculoskeletal: normal ROM, no peripheral edema Skin: warm and dry, intact, no rashes Neuro: CN II-XII intact, no focal deficits Objective Labs 11/30/24 05:22 11/30/24 14:04 Labs: Laboratory Results - last 24 hr 11/29/24 11/30/24 19:00 05:22 WBC 15.9 H RBC 4.53 Hgb 13.7 Hct 43.7 MCV 97 MCH 30.2 MCHC 31.4 RDW Std Deviation 60.0 H Plt Count 399 D Neut % (Auto) 80 Lymph % (Auto) 12 Elliott % (Auto) 7 Eos % (Auto) 0 Baso % (Auto) 1 Neut # (Auto) 12.7 H Lymph # (Auto) 1.8 Elliott # (Auto) 1.0 H Eos # (Auto) 0.0 Baso # (Auto) 0.1 Immature Gran # (Auto) 0.21 H Absolute Nucleated RBC 0.05 H Immature Gran % 1 H Nucleated RBC % 0 Sodium 138 Potassium 4.0 D Chloride 100 Carbon Dioxide 21.6 Anion Gap 16 BUN 37 H Creatinine 5.3 H* D Estim Creat Clear Calc 10.0 L eGFR 9 L* BUN/Creatinine Ratio 7 L Glucose 159 H Calculated Osmolality 287 Calcium 9.5 Corrected Calcium 9.5 Phosphorus 6.3 H Magnesium 2.5 Total Bilirubin 0.3 AST 14 ALT 9 L Alkaline Phosphatase 91 Total Protein 7.4 Albumin 4.5 Globulin 2.9 Albumin/Globulin Ratio 1.6 Urine Opiates Screen Positive A Urine Fentanyl Screen Negative Ur Barbiturates Screen Negative U Amphetamin/Meth Scrn Negative U Benzodiazepines Scrn Positive A U Cocaine Metab Screen Negative U Marijuana (THC) Screen Positive A Quality Measures Quality Measures VTE prophylaxis Assessment & Plan Assessment Current Active Medications: Generic Name Dose Route Start Last Admin Trade Name Freq PRN Reason Stop Dose Admin Acetaminophen 650 mg 11/28/24 23:19 Acetaminophen 325 Mg Tablet PO 12/28/24 23:18 Q6H PRN Fever >100.3 or pain 1-3 Protocol Acetaminophen 650 mg 11/29/24 08:43 Acetaminophen Supp 650 Mg Supp GA 12/28/24 23:18 Q6HR PRN Fever > 100.3 or pain 1-3 Protocol Albuterol/Ipratropium 3 ml 11/30/24 06:17 11/30/24 06:33 Albuterol/Ipratropium (Duoneb) Rt Maggi 3 Ml Nebu INH 12/30/24 06:16 3 ml Q6HRRT PRN Administration SHORTNESS OF BREATH OR WHEEZE Dextrose 25 ml 11/28/24 23:29 Dextrose 50%-Water Inj 50 Ml Syringe IV 12/28/24 23:28 Q15MIN PRN BG 50-70 responsive npo pt Dextrose 50 ml 11/28/24 23:29 Dextrose 50%-Water Inj 50 Ml Syringe IV 12/28/24 23:28 Q15MIN PRN BG <50 OR BG <70 & pt unresponsive Glucagon 1 mg 11/28/24 23:29 Glucagon Inj 1 Mg Vial IM Q15MIN PRN BG <70, and no IV access Heparin Sodium (Porcine) 3,300 unit 11/30/24 09:55 Heparin Sod Inj 1000 Unit/Ml Vial 10 Ml INDWELLCAT 12/14/24 09:54 PRN PRN DIALYSIS Albumin Human 25 gm in 100 mls @ 100 mls/min 11/30/24 09:37 11/30/24 09:47 Albuminar-25 Ivpb IV 100 mls/min PRN PRN Administration DIALYSIS Ceftriaxone Sodium/Dextrose 1 gm in 50 mls @ 100 mls/hr 11/30/24 09:55 Rocephin/D5w 1gm Iv Premix IV 12/07/24 09:54 QDAY [facility] Insulin Human Lispro 0 unit 11/29/24 07:30 11/30/24 07:36 Insulin Lispro (Admelog) 1 Unit/0.01 Ml Unit SC 12/29/24 07:29 Not Given [facility] Protocol Labetalol HCl 10 mg 11/28/24 23:33 11/30/24 07:46 Labetalol Inj 5 Mg/Ml Vial 20 Ml IVP 12/28/24 23:44 10 mg Q2H PRN Administration SBP>180, hold if HR<60 Lorazepam 2 mg 11/30/24 07:33 Lorazepam 2 Mg/Ml Vial IVP 12/05/24 07:32 Q5M PRN SEIZURES Ondansetron HCl 4 mg 11/29/24 12:12 11/30/24 07:40 Ondansetron Inj 2 Mg/Ml Inj 2 Ml IV 12/29/24 06:21 4 mg Q6HR PRN Administration NAUSEA OR VOMITING Protocol Pantoprazole Sodium 40 mg 11/29/24 10:00 11/29/24 20:33 Pantoprazole Inj 40 Mg Vial IV 12/29/24 09:59 40 mg BID ALEX Administration Sennosides 1 tab 11/28/24 23:19 Senna Tablet PO 12/28/24 23:18 QDAY PRN constipation Protocol Plan Edita Carmona is a 64-year-old female with a past medical history of ESRD on HD M/W/F (previously on PD, stopped 03/2024), esophageal ulcers, CAD status post CABG, status post pacemaker placement 10/25/2024, T2DM, hypotension on midodrine who is admitted for management of UGIB, new onset generalized tonic seizure, and hypertensive emergency. #Upper GI bleed #History of esophageal ulcers Presented with coffee-ground emesis. Hemoglobin 15.2 on admission, downtrending to 13.7. EGD in 2022 was positive for multiple esophageal ulcers. Low suspicion for esophageal varices, will not proceed with octreotide drip for now. ? GI consulted, appreciate recommendations ? Pending EGD ? N.p.o. ? Pantoprazole 40 mg twice daily ? Monitor daily CBC, transfuse if hemoglobin less than 7 #? Peritoneal dialysis catheter infection #History of PD catheter related peritonitis #? Urinary tract infection Denies urinary symptoms. UA: Turbid, 6 RBC, 9 WBC, 10 squamous cells, 4+ bacteria. WBC uptrending, temp of 100.1 ?F on admission. Denies abdominal pain. PD catheter site slightly erythematous but no discharge noted. Plans to remove PD catheter next week. ? Ceftriaxone 1 g IV daily (11/28-) ? Blood cultures 11/28: Pending ? Urine cultures 11/29: Pending ? Peritoneal fluid cultures and differential ordered #Episode of generalized tonic seizure #Acute encephalopathy Suspec to be due to upper GI bleed vs possible infection. Received 2 mg of lorazepam IV, did not have repeat seizures. Family denies history of seizures. Blood sugar on admission was 96. CT head, CTA head and neck negative for acute stroke, bleeding, fracture, large vessel occlusion. MRI brain: Increased signal of FLAIR images in cortex of parietal-occipital lobes posteriorly. ? Neurology consulted, appreciate recommendations ? Suspecting posterior reversible encephalopathy syndrome due to uncontrolled hypertension ? Lorazepam 2 mg PRN ? Neurochecks q4hr ? Follow-up EEG #Hypertensive emergency In ED blood pressure went up to 220/122 and received hydralazine and labetalol IV. ? Gradual reduction of BP, goal is 10 to 20% in first hour, 5 to 15% in next 23 hours with ultimate goal of 160/120 ? Labetalol 10 mg every 2 hours if SBP > 180 #History of type 2 diabetes, A1c 4.6% ? SSI with Accu-Cheks ? Hypoglycemic protocol #ESRD on hemodialysis (M/W/F) ? Nephrology consulted for inpatient hemodialysis #CAD s/p CABG Stable. ? Aspirin and plavix held given UGIB Hospital management: Disposition: pending EGD, cultures pending Fluids: none, undergoing dialysis today Diet: NPO for possible GI procedure Lines: PIV DVT prophylaxis: SCDs GI prophylaxis: pantoprazole 40 mg IV BID CODE STATUS: full code ----- Plan discussed with attending physician Dr. Marie and senior resident physician Dr. Lawnada Schaeffer MD PGY-1 Internal Medicine Attending Provider Attestation/Addendum Face to face evaluation was performed by me. I have personally seen and examined the patient. I discussed the assessment and plan with the entire medicine team. I reviewed available medical records, imaging studies, laboratory results. I agree with the above subjective data, objective findings, assessment and plan except as corrected by me or noted below #Episode of generalized tonic seizure #Acute encephalopathy, due to above # Possible hematemesis, upper GI bleed #History of esophageal ulcers Hypertensive emergency with acute encephalopathy as above Mentation improved, continue with IV PPI, GI consulted-plan for EGD . Monitor H&H closely. Continue antihypertensives, monitor blood pressure closely-much better. Neurology consulted, appreciate help. EEG, MRI done results reviewed More than > 30 minutes spent on the encounter
[2024-11-30] MEDS: CATHFLO (ALTEPLASE) INJ 4 MG, Sterile Water 4.4 ML INDWELLCAT (11:02)
--- NOTE | 2024-11-30 11:14 | PC.NURSE ---
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 MD EATON NOTIFED W/ ORDER TO [facility](ALTEPLASE) BOTH PORTS TO DWELL UNTIL NEXT TX, WILL CARRY OUT ORDER
[2024-11-30] MEDS: PANTOPRAZOLE INJ 40 MG VIAL IV ×2 (12:04→20:39)
[2024-11-30] MEDS: cefTRIAXone/D5w 1gm IV premix 1 GM/50 ML BAG IV (12:17)
[2024-11-30 14:50] LABS: Albumin, Serum 4.7 gm/dL (3.4-4.8); Albumin/Globulin Ratio 1.7 (1.2-2.2); Alkaline Phosphatase 80 U/L (46-116); Anion Gap 14 (7-16); Aspartate Amino Transferase 13 U/L (0-34); BUN/Creatinine Ratio 5 Ratio (12-20); Bilirubin,Total 0.4 mg/dL (0.3-1.2); Blood Urea Nitrogen 18 mg/dL (9-23); Calcium 9.4 mg/dL (8.3-10.6); Calcium (Corrected) 9.4 mg/dL (8.5-10.1); Carbon Dioxide 26.2 mMol/L (20.0-31.0); Chloride 99 mMol/L (98-107); Creatinine (Component) 3.6 mg/dL (0.6-1.3); Estimated Creatinine Clearance 16.1 mL/min (>60); Globulin 2.8 gm/dL (2.3-3.5); Glucose 152 mg/dL (74-106); Osmolality,Calculated 282 (275-295); Potassium 3.4 mMol/L (3.4-5.1); Sodium 139 mMol/L (136-145); Total Protein 7.5 gm/dL (5.7-8.2); eGFR 14 See Note
[2024-11-30 15:00] LABS: Alanine Aminotransferase 8 U/L (10-49)
--- NOTE | 2024-11-30 16:05 | RESP.EEG ---
eeg ready to be read
[2024-11-30] MEDS: HALOPERIDOL LACT INJ 5 MG/ML VIAL 2.5 MG IV (21:09)
[2024-12-01] VITALS (12 sets, daily range): BP systolic 116–200; BP diastolic 70–110; PULSE 74–100; RESP 10–98; TEMP 36.1–37.2; O2SAT 69–100; BMI 24.0
[2024-12-01] MEDS: ONDANSETRON INJ 2 MG/ML INJ 2 ML 4 MG IV ×6 (02:23→21:36)
--- NOTE | 2024-12-01 03:32 | RESP.EEG ---
EEG CANCELED PER DR STOVER. AN EEG WAS COMPLETED ON 11/29/24, AND DR Shukla WAS UNAWARE.
[2024-12-01 05:36] LABS: Basophils # (Auto) 0.1 Thou/mm3 (0.0-0.2); Basophils % (Auto) 1 % (0-2.5); Eosinophils % (Auto) 0 % (0-10); Hematocrit 42.2 % (36.0-46.0); Immature Granulocytes % (Auto) 1 % (0-0); Immature Granulocytes Auto 0.16 Thou/mm3 (0.00-0.00); Lymphocytes # (Auto) 1.9 Thou/mm3 (1.0-4.8); Lymphocytes % (Auto) 15 % (10-50); Mean Corpuscular HGB Conc 30.8 g/dl (31.0-37.0); Mean Corpuscular Hemoglobin 30.6 pg (25.0-35.0); Mean Corpuscular Volume 99 fL (80-100); Monocytes # (Auto) 1.3 Thou/mm3 (0.0-0.8); Monocytes % (Auto) 10 % (0-12); Neutrophils # (Auto) 9.3 Thou/mm3 (1.8-7.7); Neutrophils % (Auto) 73 % (37-80); Nucleated Red Blood Cell # 0.06 Thou/mm3 (0.00-0.00); Nucleated Red Blood Cell % 1 /100 WBC (0); Platelet Count 330 Thou/mm3 (140-440); RDW Standard Deviation 60.6 fL (36.4-46.3); Red Blood Count 4.25 Miln/mm3 (4.00-5.20); White Blood Count 12.8 Thou/mm3 (3.6-11.0)
[2024-12-01 06:35] LABS: Alanine Aminotransferase 9 U/L (10-49); Albumin, Serum 4.4 gm/dL (3.4-4.8); Albumin/Globulin Ratio 1.7 (1.2-2.2); Alkaline Phosphatase 74 U/L (46-116); Anion Gap 14 (7-16); Aspartate Amino Transferase 17 U/L (0-34); BUN/Creatinine Ratio 6 Ratio (12-20); Bilirubin,Total 0.3 mg/dL (0.3-1.2); Blood Urea Nitrogen 26 mg/dL (9-23); Calcium 9.2 mg/dL (8.3-10.6); Calcium (Corrected) 9.2 mg/dL (8.5-10.1); Carbon Dioxide 24.7 mMol/L (20.0-31.0); Chloride 99 mMol/L (98-107); Creatinine (Component) 4.6 mg/dL (0.6-1.3); Estimated Creatinine Clearance 11.6 mL/min (>60); Globulin 2.6 gm/dL (2.3-3.5); Glucose 128 mg/dL (74-106); Magnesium 2.1 mg/dL (1.6-2.6); Osmolality,Calculated 282 (275-295); Phosphorous 4.6 mg/dL (2.4-5.1); Potassium 3.3 mMol/L (3.4-5.1); Sodium 138 mMol/L (136-145); eGFR 10 See Note
[2024-12-01] MEDS: ALBUTEROL/IPRATROPIUM (Duoneb) RT SOL 3 ML NEBU INH (08:28)
[2024-12-01] MEDS: cefTRIAXone/D5w 1gm IV premix 1 GM/50 ML BAG IV (09:14)
[2024-12-01] MEDS: PANTOPRAZOLE INJ 40 MG VIAL IV ×2 (09:15→20:34)
[2024-12-01] MEDS: LORazepam 0.5 MG TABLET 1 MG PO (10:10)
[2024-12-01] MEDS: LABETALOL INJ 5 MG/ML VIAL 20 ML 10 MG IVP (10:27)
--- NOTE | 2024-12-01 10:49 | EKG_ITS ---
[facility] Test Date: 2024-12-01 Pat Name: KAREN BARNES Department: Room: S272A Gender: Female Supervisor Stave Finishing: SUSIE : 1960 Requested By: Koffi Bell Order Number: [id number] Reading MD: Koffi Bell Measurements Intervals [place] Rate: 78 P: 45 WA: 165 QRS: -24 QRSD: 109 T: -42 QT: 406 QTc: 463 Interpretive Statements SINUS RHYTHM LEFT VENTRICULAR HYPERTROPHY AND ST-T CHANGE POSSIBLE ANTEROLATERAL MYOCARDIAL INFARCTION , OF INDETERMINATE AGE Compared to ECG 11/15/2024 14:19:43 Myocardial infarct finding now present ST (T wave) deviation still present /store/S0/[id number]/ecg/[id number].pdf
--- NOTE | 2024-12-01 10:49 | XR_ITS ---
Examination: AP chest single view Technique: AP portable upright chest single view Exam date and time: December 01, 2024 1057 hrs. Comparison October 02, 2024 Indications: Onset chest pain today Findings: Mild enlargement cardiac contour. Mild vascular congestion. Median sternotomy wires. No lobar pneumonia or pulmonary edema. Transvenous dual-chamber bipolar cardiac leads satisfactory position. Right internal jugular dialysis catheter tip SVC satisfactory position Significant osteopenia Impression: Mild vascular congestion
--- NOTE | 2024-12-01 11:00 | PC.NURSE ---
Rapid Response Called at 10:48. Patient was lying in bed on right side having chest pressure and restless. O2 Saturation 69% on room air. Placed patient on 2 liters NC. O2 went up to 100%. EKG ordered. Showed Sinus Rhythm. Chest XRAY ordered. Pending Results. Cymbalta 30mg PO given per 's order.
[2024-12-01] MEDS: DULoxetine HCL 30 MG CAPSULE PO ×2 (11:06→20:34)
[2024-12-01 11:46] LABS: Troponin I 0.029 ng/mL (0.0-0.045)
[2024-12-01] MEDS: INSULIN LISPRO (AdmeLOG) 1 UNIT/0.01 ML UNIT SC (11:56)
--- NOTE | 2024-12-01 11:56 | PD.RESEVENT ---
Documentation for date of: 12/01/24 Event Note Event Note: Rapid response was called at approximately 10:45 for O2 saturation in 60's when laying on right side, as well as mid-sternal chest pain and pressure. On arrival patient's was sitting upright appeared to be anxious but able to protect her airway saturating 100% on 2L O2 via nasal cannula, able to answer questions. Pt continues to saturate at at 98% on room air, when O2 is is turned off. BP systolic is 190's, Pt was given labetalol 10 minutes prior. Pt continues to feel anxious. EKG, CXR and troponins are ordered. EKG show sinus rhythm with no acute changes. CXR are unchanged, with mild vascular congestion and troponin levels are 0.029. Pt's home cymbalta was not continued since admission and states she feels increasingly anxious. Ativan 1mg PO is given and cymbalta 30mg x1 given now and scheduled for HS. Pt home dose of cymbalta is 30mg BID, however pt takes 60mg HS, therefore will resume home schedule from tomorrow. At the end of rapid, Pt is saturating well on room air, denies chest pain or pressure and continues to feel mildly anxious. Will repeat BP after 45 minutes. Assessment and plan discussed with my attending physician Dr. Keven Zepeda (PGY-1)- Internal medicine resident
--- NOTE | 2024-12-01 11:58 | ESCONSULT_ITS ---
RE: KARNE BARNES : 1960 DATE OF CONSULTATION: 11/29/2024 REASON FOR CONSULT: ESRD management. REFERRING PHYSICIAN: Dr. Andrez Schaeffer HISTORY OF PRESENT ILLNESS: This patient is a 64-year-old woman with past medical history significant for type 2 diabetes with nephropathy, neuropathy, retinopathy, hypertension, and ESRD on dialysis every Monday, Monday, and Monday. She used to be on peritoneal dialysis from 01/2022 to 03/2024. She also has esophageal ulcers, CAD status post pacemaker placement and CABG on 09/2024 who presented to emergency room on 11/28/2024 with general weakness and complaining of hematemesis. While in the emergency room, the patient was found with an elevated blood pressure of 221/122 and she started having tonic-clonic seizures. Immediately, she had a CT of the head as well as CTA, which did not reveal any CVA. This was followed by MRI with gadobenate which is Class 2 GBCA (safe for ESRD and low kidney function patients) and again did not reveal any acute CVA. The patient was dialyzed after MRI. PAST MEDICAL HISTORY: As previously mentioned, history of CVA with no residual weakness, type 2 diabetes with neuropathy, retinopathy, nephropathy, history of hypotension secondary to autonomic neuropathy, CAD. PAST SURGICAL HISTORY: PD catheter placement twice, CABG, pacemaker placement, section. FAMILY HISTORY: The patient's father was on dialysis. ALLERGIES: NO KNOWN DRUG ALLERGIES. CURRENT MEDICATIONS: 1. Acetaminophen 2. Albuterol. 3. Ceftriaxone 1 g IV daily. 4. Duloxetine 30 mg p.o. b.i.d. 5. Haloperidol. 6. Hydralazine 10 mg X 1 7. Lispro sliding scale. 8. Risperidone. 9. Senna. PHYSICAL EXAMINATION: General: Awake, alert, and oriented. Vital Signs: Blood pressure of 200/109, heart rate of 98. HEENT: Normocephalic. Neck: Supple. JVD. Chest and Lungs: Normal expansion. Clear breath sounds. Heart: No murmur. Abdomen: Soft and tender. Extremities: No edema. LABORATORY DATA: Hemoglobin 13, sodium 138, potassium 3.3, chloride 99, CO2 24.7, BUN 26, creatinine 4.6, glucose 128, calcium 9.2, phosphorus 4.6. ASSESSMENT: 1. End stage renal disease secondary to diabetic nephropathy and hypertensive nephrosclerosis. 2. Tonic clonic seizure, most likely secondary to hypertensive emergency. 3. Uncontrolled hypertension. 4. Labile blood pressures. 5. History of coronary artery disease status post coronary artery bypass graft. 6. History of cerebrovascular accident. 7. Esophageal ulcers. PLAN: I suspect that her tonic clonic seizure was due to severely elevated hypertension. The patient is currently on p.r.n. hydralazine. The patient was also dialyzed on Monday, which is her regular dialysis day. We will continue to give her p.r.n. antihypertensive if blood pressure is above 180 mmHg. Continue to monitor her symptoms. Continue to monitor her H and H given history of hematemesis recently. Dialysis will be provided on her scheduled day, i.e. Monday, Monday, Monday. Thank you for allowing me to participate in medical care of your patient. DT: 10:44:26 TT: 11:54:00 Ref: [id number] - TID: [id number] MTDClary
--- NOTE | 2024-12-01 12:22 | ESPR_ITS ---
<Statement entered by Mason Webber MD - 12/02/24 07:30> Senior Resident Attestation: I supervised/discussed management plan with internal audit consultant physician Dr. Zepeda, and was involved in the care of this patient. I personally saw and examined the patient and discussed the assessment and plan with the entire medicine team, including my attending. I agree with the assessment and plan as documented. Patient's care was discussed with attending physician, Dr. Baca. Mason Webber MD PGY-2. Documentation for date of: 12/01/24 Subjective Subjective Interval history: Overnight team reported pt was nauseas without relief with zofran therefore haloparadol x1 was given. Pt is seen and examined at bedside this morning, she continues to complain of feeling anxious and nauseas. Pt's home cymbalta was not resumed and states her symptoms are likely secondary to that. Pt denies SOB, chest pain, pressure or abdominal pain. Pt denies any episodes of hematemesis since the episode in the ED. Vitals are stable with BP 127/90, labs are significant for wbc 12.8, potassium 3.3, Cr 4.6. Will reusme home cymbalta and continue to monitor for improvement of symptoms. Exam Vital Signs Temp Pulse Resp BP Pulse Ox O2 Del Method O2 Flow Rate 98.9 F 85 10 L 200/109 H 69 L Nasal Cannula 2 12/01/24 11:00 12/01/24 11:00 12/01/24 11:00 12/01/24 11:00 12/01/24 11:00 12/01/24 08:00 12/01/24 08:00 Narrative Exam GENERAL: A&Ox3 able to answer questions, pt is uncomfortable due to nausea NEURO: no focal neurological deficits HEENT: Atraumatic, Normocephalic. mucous membranes moist. Eyes open, symmetrical, & clear HEART: Normal Heart Sounds LUNGS: Clear to auscultation with no wheezing or crackles. ABDOMEN: soft, non-distended, non-tender, bowel sounds heard, no guarding or rebound tenderness, peritoneal dialysis port present in th RUQ SKIN: No Rash or ecchymoses EXTREMITIES: No edema, tenderness, able to move all 4 extremities, pedal pulses palpated Objective Labs 12/02/24 09:12 12/02/24 09:12 Labs: Laboratory Results - last 24 hr 11/30/24 12/01/24 12/01/24 14:04 04:35 11:08 WBC 12.8 H RBC 4.25 Hgb 13.0 Hct 42.2 MCV 99 MCH 30.6 MCHC 30.8 L RDW Std Deviation 60.6 H Plt Count 330 D Neut % (Auto) 73 Lymph % (Auto) 15 [place] % (Auto) 10 Eos % (Auto) 0 Baso % (Auto) 1 Neut # (Auto) 9.3 H Lymph # (Auto) 1.9 [place] # (Auto) 1.3 H Eos # (Auto) 0.0 Baso # (Auto) 0.1 Immature Gran # (Auto) 0.16 H Absolute Nucleated RBC 0.06 H Immature Gran % 1 H Nucleated RBC % 1 H Sodium 139 138 Potassium 3.4 D 3.3 L Chloride 99 99 Carbon Dioxide 26.2 24.7 Anion Gap 14 14 BUN 18 26 H Creatinine 3.6 H D 4.6 H* D Estim Creat Clear Calc 16.1 L 11.6 L eGFR 14 L* 10 L* BUN/Creatinine Ratio 5 L 6 L Glucose 152 H 128 H Calculated Osmolality 282 282 Calcium 9.4 9.2 Corrected Calcium 9.4 9.2 Phosphorus 4.6 Magnesium 2.1 Total Bilirubin 0.4 0.3 AST 13 17 ALT 8 L 9 L Alkaline Phosphatase 80 74 Troponin I 0.029 Total Protein 7.5 7.0 Albumin 4.7 4.4 Globulin 2.8 2.6 Albumin/Globulin Ratio 1.7 1.7 Quality Measures Quality Measures VTE prophylaxis Assessment & Plan Assessment Current Active Medications: Generic Name Dose Route Start Last Admin Trade Name Freq PRN Reason Stop Dose Admin Acetaminophen 650 mg 11/28/24 23:19 Acetaminophen 325 Mg Tablet PO 12/28/24 23:18 Q6H PRN Fever >100.3 or pain 1-3 Protocol Acetaminophen 650 mg 11/29/24 08:43 Acetaminophen Supp 650 Mg Supp MN 12/28/24 23:18 Q6HR PRN Fever > 100.3 or pain 1-3 Protocol Albuterol/Ipratropium 3 ml 11/30/24 06:17 12/01/24 08:28 Albuterol/Ipratropium (Duoneb) Rt Maggi 3 Ml Nebu INH 12/30/24 06:16 3 ml Q6HRRT PRN Administration SHORTNESS OF BREATH OR WHEEZE Capsaicin 0 gm 12/01/24 11:06 Capsaicin Cr 60 Gm Tube TOP 12/30/24 20:14 TID PRN MUSCLE PAIN Protocol Dextrose 25 ml 11/28/24 23:29 Dextrose 50%-Water Inj 50 Ml Syringe IV 12/28/24 23:28 Q15MIN PRN BG 50-70 responsive npo pt Dextrose 50 ml 11/28/24 23:29 Dextrose 50%-Water Inj 50 Ml Syringe IV 12/28/24 23:28 Q15MIN PRN BG <50 OR BG <70 & pt unresponsive Duloxetine HCl 60 mg 12/02/24 21:00 Duloxetine Hcl 30 Mg Capsule PO 01/01/25 20:59 HS ALEX Duloxetine HCl 30 mg 12/01/24 21:00 Duloxetine Hcl 30 Mg Capsule PO 12/01/24 21:01 X1 ONE Glucagon 1 mg 11/28/24 23:29 Glucagon Inj 1 Mg Vial IM Q15MIN PRN BG <70, and no IV access Heparin Sodium (Porcine) 3,300 unit 11/30/24 09:55 Heparin Sod Inj 1000 Unit/Ml Vial 10 Ml INDWELLCAT 12/14/24 09:54 PRN PRN DIALYSIS Albumin Human 25 gm in 100 mls @ 100 mls/min 11/30/24 09:37 11/30/24 09:47 Albuminar-25 Ivpb IV 100 mls/min PRN PRN Administration DIALYSIS Ceftriaxone Sodium/Dextrose 1 gm in 50 mls @ 100 mls/hr 11/30/24 09:55 12/01/24 09:14 Rocephin/D5w 1gm Iv Premix IV 12/07/24 09:54 100 mls/hr QDAY ALEX Administration Insulin Human Lispro 0 unit 11/29/24 07:30 12/01/24 11:56 Insulin Lispro (Admelog) 1 Unit/0.01 Ml Unit SC 12/29/24 07:29 1 unit AC ALEX Administration Protocol Labetalol HCl 10 mg 11/28/24 23:33 12/01/24 10:27 Labetalol Inj 5 Mg/Ml Vial 20 Ml IVP 12/28/24 23:44 10 mg Q2H PRN Administration SBP>180, hold if HR<60 Lorazepam 2 mg 11/30/24 07:33 Lorazepam 2 Mg/Ml Vial IVP 12/05/24 07:32 Q5M PRN SEIZURES Ondansetron HCl 4 mg 11/30/24 14:00 12/01/24 09:15 Ondansetron Inj 2 Mg/Ml Inj 2 Ml IV 12/30/24 13:59 4 mg Q4HR ALEX Administration Protocol Pantoprazole Sodium 40 mg 11/29/24 10:00 12/01/24 09:15 Pantoprazole Inj 40 Mg Vial IV 12/29/24 09:59 40 mg BID ALEX Administration Sennosides 1 tab 11/28/24 23:19 Senna Tablet PO 12/28/24 23:18 QDAY PRN constipation Protocol Plan Edita Carmona is a 64-year-old female with a past medical history of ESRD on HD // (previously on PD, stopped 03/2024), esophageal ulcers, CAD status post CABG, status post pacemaker placement 10/25/2024, T2DM, hypotension on midodrine who is admitted for management of UGIB, new onset generalized tonic seizure, and hypertensive emergency. #Upper GI bleed resolved #History of esophageal ulcers On admission Presented with coffee-ground emesis. Hemoglobin 15.2 on admission, downtrending to 13.7. EGD in 2022 was positive for multiple esophageal ulcers. Low suspicion for esophageal varices, will not proceed with octreotide drip for now. Plan: -GI consulted, appreciate recommendations -Repeat EGD show erythematous muscusa without signs of active bleeding, gastritis and PUD -PUD diet ordered -Pantoprazole 40 mg twice daily -Zofran PRN for nausea -Monitor daily CBC, transfuse if hemoglobin less than 7 #? Peritoneal dialysis catheter infection #History of PD catheter related peritonitis #? Urinary tract infection -Denies urinary symptoms. UA: Turbid, 6 RBC, 9 WBC, 10 squamous cells, 4+ bacteria. WBC uptrending, temp of 100.1 ?F on admission. -Denies abdominal pain. PD catheter site slightly erythematous but no discharge noted. Plans to remove PD catheter next week. -Ceftriaxone 1 g IV daily 11/28- -Blood cultures no growth at 48 hrs -Urine cultures pending -Peritoneal fluid cultures and differential ordered #Episode of generalized tonic seizure #Acute encephalopathy -In the ED pt had 1 episode of tonic clonic seizure like activity. Received 2 mg of lorazepam IV, did not have repeat seizures. Family denies history of seizures. Blood sugar on admission was 96. -CT head, CTA head and neck negative for acute stroke, bleeding, fracture, large vessel occlusion. -MRI brain: Increased signal of FLAIR images in cortex of parietal-occipital lobes posteriorly. -Neurology consulted, appreciate recommendations ? Suspecting posterior reversible encephalopathy syndrome due to uncontrolled hypertension -Lorazepam 2 mg PRN for seizures -Neurochecks q4hr -EEG findings are within normal limits #Hypertensive emergency #Hypertension #Hx of Hypotension In ED blood pressure went up to 220/122 and received hydralazine and labetalol IV. -Pt home medication include midodrine for hypotension however she takes it PRN, during this hospital admission Pt is hypertensive therefore home midodrine is held -Gradual reduction of BP, goal is 10 to 20% in first hour, 5 to 15% in next 23 hours with ultimate goal of 160/120 -Labetalol 10 mg every 2 hours if SBP > 180 -Valsartan 40mg daily ordered #History of type 2 diabetes, A1c 4.6% -SSI with Accu-Cheks -Hypoglycemic protocol #ESRD on hemodialysis (M/W/F) -Nephrology consulted for inpatient hemodialysis #Hx of CAD s/p CABG -Home Aspirin and plavix held given UGIB Hospital management: Disposition: pending EGD, cultures pending Fluids: none, undergoing dialysis today Diet: NPO for possible GI procedure Lines: PIV DVT prophylaxis: SCDs GI prophylaxis: pantoprazole 40 mg IV BID CODE STATUS: full code Health Maintenance Disposition: telemetry DVT Prophylaxis: SCD QSHIFT GI Prophylaxis: Pantoprozol-40 IV Qday Diet: PUD diet Lines: Peripheral lines Assessment and plan discussed with my senior resident Dr. Webber & attending physician Dr. Keven Zepeda (PGY-1)- Internal medicine resident Attending Provider Attestation/Addendum I have examined the patient, reviewed labs and imaging findings, discussed the case with the resident(s), and reviewed entered orders. I agree with the plan of care as outlined in this note, with these additional summaries/recommendations: Patient appears to be improving today. Continue to monitor closely and follow cultures. Anticipate discharge in next 24 to 48 hours. Kaiden Baca MD
[2024-12-01] MEDS: DiphenhydrAMINE ELIX 25 MG/10 ML UDC 12.5 MG PO (15:11)
--- NOTE | 2024-12-01 20:24 | PD.IMPROG ---
Documentation for date of: 12/01/24 Subjective Subjective Interval history: Nausea vomiting improved Exam Vital Signs Temp Pulse Resp BP Pulse Ox O2 Del Method O2 Flow Rate 97.0 F 83 16 156/87 H 98 Room Air 2 12/01/24 16:00 12/01/24 19:30 12/01/24 19:30 12/01/24 16:00 12/01/24 19:28 12/01/24 16:00 12/01/24 12:00 Objective Labs 12/01/24 04:35 12/01/24 04:35 Labs: Laboratory Results - last 24 hr 12/01/24 12/01/24 04:35 11:08 WBC 12.8 H RBC 4.25 Hgb 13.0 Hct 42.2 MCV 99 MCH 30.6 MCHC 30.8 L RDW Std Deviation 60.6 H Plt Count 330 D Neut % (Auto) 73 Lymph % (Auto) 15 [place] % (Auto) 10 Eos % (Auto) 0 Baso % (Auto) 1 Neut # (Auto) 9.3 H Lymph # (Auto) 1.9 [place] # (Auto) 1.3 H Eos # (Auto) 0.0 Baso # (Auto) 0.1 Immature Gran # (Auto) 0.16 H Absolute Nucleated RBC 0.06 H Immature Gran % 1 H Nucleated RBC % 1 H Sodium 138 Potassium 3.3 L Chloride 99 Carbon Dioxide 24.7 Anion Gap 14 BUN 26 H Creatinine 4.6 H* D Estim Creat Clear Calc 11.6 L eGFR 10 L* BUN/Creatinine Ratio 6 L Glucose 128 H Calculated Osmolality 282 Calcium 9.2 Corrected Calcium 9.2 Phosphorus 4.6 Magnesium 2.1 Total Bilirubin 0.3 AST 17 ALT 9 L Alkaline Phosphatase 74 Troponin I 0.029 Total Protein 7.0 Albumin 4.4 Globulin 2.6 Albumin/Globulin Ratio 1.7 Impressions Impression: # Gastritis # Esophagitis continue current management Assessment & Plan Time Spent With Patient Time: Total time spent is greater than 50% in coordination of care (as documented) at patient's floor/unit and/or counseling patient:
[2024-12-01] MEDS: MELATONIN 3 MG TABLET PO ×2 (20:35→21:55)
[2024-12-01 21:30] LABS: Hepatitis A Antibody IgM Non Reactive (Non React); Hepatitis B Core Antibody IgM Non Reactive (Non React); Hepatitis B Surface Ab NonReact(Not Immune) (Immune); Hepatitis B Surface Antigen Non Reactive (Non React); Hepatitis C Antibody Non Reactive (Non React)
--- NOTE | 2024-12-01 23:40 | ESPR_ITS ---
Documentation for date of: 12/01/24 Subjective Subjective Interval history: Patient is in telemetry. No new symptoms reported. She underwent upper GI endoscopy that showed gastritis duodenitis and a hiatal hernia. Her blood pressure was elevated once to 200 systolic, given a dose of labetalol and Ativan and started on Cymbalta which helped. Now the blood pressure is stabilized with systolic in the 130s. Denies any headache or recurrent seizures after admission Exam - Neurology Vital Signs Temp Pulse Resp BP Pulse Ox O2 Del Method O2 Flow Rate 97.4 F 84 14 170/98 H 96 Room Air 2 12/01/24 20:00 12/01/24 20:00 12/01/24 20:00 12/01/24 20:00 12/01/24 20:00 12/01/24 20:00 12/01/24 12:00 Objective Labs 12/01/24 04:35 12/01/24 04:35 Labs: Laboratory Results - last 24 hr 11/30/24 12/01/24 12/01/24 05:50 04:35 11:08 WBC 12.8 H RBC 4.25 Hgb 13.0 Hct 42.2 MCV 99 MCH 30.6 MCHC 30.8 L RDW Std Deviation 60.6 H Plt Count 330 D Neut % (Auto) 73 Lymph % (Auto) 15 [place] % (Auto) 10 Eos % (Auto) 0 Baso % (Auto) 1 Neut # (Auto) 9.3 H Lymph # (Auto) 1.9 [place] # (Auto) 1.3 H Eos # (Auto) 0.0 Baso # (Auto) 0.1 Immature Gran # (Auto) 0.16 H Absolute Nucleated RBC 0.06 H Immature Gran % 1 H Nucleated RBC % 1 H Sodium 138 Potassium 3.3 L Chloride 99 Carbon Dioxide 24.7 Anion Gap 14 BUN 26 H Creatinine 4.6 H* D Estim Creat Clear Calc 11.6 L eGFR 10 L* BUN/Creatinine Ratio 6 L Glucose 128 H Calculated Osmolality 282 Calcium 9.2 Corrected Calcium 9.2 Phosphorus 4.6 Magnesium 2.1 Total Bilirubin 0.3 AST 17 ALT 9 L Alkaline Phosphatase 74 Troponin I 0.029 Total Protein 7.0 Albumin 4.4 Globulin 2.6 Albumin/Globulin Ratio 1.7 Hepatitis A IgM Ab Non Reactive Hep Bs Antigen Non Reactive Hep Bs Antibody NonReact(Not Immune) L Hep B Core IgM Ab Non Reactive Hepatitis C Antibody Non Reactive Assessment & Plan Assessment and plan (1) New onset seizure without head trauma: Status: Acute Assessment and plan: Likely secondary to posterior reversible encephalopathy syndrome: Uncontrolled hypertension. Continued with the blood pressure monitoring and control. EEG did not show any epileptiform discharges MRI brain showed findings consistent with a posterior reversible encephalopathy syndrome. Patient is advised to continue with lorazepam as needed. (2) Severe sepsis: Status: Acute Assessment and plan: Continue with IV fluids and antibiotics (3) Diabetes: Status: Acute Assessment and plan: Check fingerstick glucose and sliding scale insulin (4) End stage renal disease on dialysis due to type 2 diabetes mellitus: Status: Acute Assessment and plan: On dialysis 3 days a week
[2024-12-02] VITALS (24 sets, daily range): BP systolic 89–182; BP diastolic 57–111; PULSE 68–92; RESP 16–18; TEMP 36.1–36.7; O2SAT 96–100; BMI 24.0
[2024-12-02] MEDS: ONDANSETRON INJ 2 MG/ML INJ 2 ML 4 MG IV ×2 (05:42→11:27)
--- NOTE | 2024-12-02 07:58 | PC.NURSE ---
TX BFR RUNNING AT 250 D/T INCREASED AP DESPITE ALL INTERVENTIONS, MD NOTIFIED W/ ORDER TO START HEP MAINTENANCE AT 1000 UN/HR ORDER CARRIED OUT WILL CONT. TO MONITOR
[2024-12-02] MEDS: ALBUMIN HUMAN 25% IVPB 25 GM/100 ML BTL IV (09:00)
--- NOTE | 2024-12-02 09:04 | PC.NURSE ---
BP LOW PT DENIES ALL S/S OF HYPOTENSION AND REMAINS RECLINED WILL ADMIN PRN ALBUMIN 25/100ML PER MD ORDERS AND CONT. TO MONITOR
[2024-12-02 09:37] LABS: Basophils # (Auto) 0.1 Thou/mm3 (0.0-0.2); Basophils % (Auto) 1 % (0-2.5); Eosinophils # (Auto) 0.1 Thou/mm3 (0.0-0.5); Eosinophils % (Auto) 1 % (0-10); Hematocrit 39.9 % (36.0-46.0); Hemoglobin 12.9 g/dL (12.0-16.0); Immature Granulocytes % (Auto) 1 % (0-0); Immature Granulocytes Auto 0.11 Thou/mm3 (0.00-0.00); Lymphocytes % (Auto) 9 % (10-50); Mean Corpuscular HGB Conc 32.3 g/dl (31.0-37.0); Mean Corpuscular Hemoglobin 30.9 pg (25.0-35.0); Mean Corpuscular Volume 96 fL (80-100); Monocytes # (Auto) 0.7 Thou/mm3 (0.0-0.8); Monocytes % (Auto) 6 % (0-12); Neutrophils # (Auto) 9.1 Thou/mm3 (1.8-7.7); Neutrophils % (Auto) 82 % (37-80); Nucleated Red Blood Cell # 0.03 Thou/mm3 (0.00-0.00); Nucleated Red Blood Cell % 0 /100 WBC (0); Platelet Count 226 Thou/mm3 (140-440); RDW Standard Deviation 58.1 fL (36.4-46.3); Red Blood Count 4.17 Miln/mm3 (4.00-5.20)
--- NOTE | 2024-12-02 09:41 | PC.SS ---
SS follow up note; Patient is getting Dialysis today, possible discharge home after dialysis.
[2024-12-02 10:07] LABS: Alanine Aminotransferase 8 U/L (10-49); Albumin, Serum 4.7 gm/dL (3.4-4.8); Albumin/Globulin Ratio 1.9 (1.2-2.2); Alkaline Phosphatase 73 U/L (46-116); Anion Gap 11 (7-16); Aspartate Amino Transferase 12 U/L (0-34); BUN/Creatinine Ratio 5 Ratio (12-20); Bilirubin,Total 0.4 mg/dL (0.3-1.2); Blood Urea Nitrogen 18 mg/dL (9-23); Calcium 9.1 mg/dL (8.3-10.6); Calcium (Corrected) 9.1 mg/dL (8.5-10.1); Carbon Dioxide 26.9 mMol/L (20.0-31.0); Chloride 98 mMol/L (98-107); Creatinine (Component) 3.5 mg/dL (0.6-1.3); Estimated Creatinine Clearance 15.2 mL/min (>60); Globulin 2.5 gm/dL (2.3-3.5); Glucose 209 mg/dL (74-106); Magnesium 1.9 mg/dL (1.6-2.6); Osmolality,Calculated 279 (275-295); Phosphorous 2.6 mg/dL (2.4-5.1); Potassium 3.1 mMol/L (3.4-5.1); Sodium 136 mMol/L (136-145); Total Protein 7.2 gm/dL (5.7-8.2); eGFR 14 See Note
[2024-12-02] MEDS: HEPARIN SOD INJ 1000 UNIT/ML VIAL 10 ML 3000 UNIT INDWELLCAT (11:24)
[2024-12-02] MEDS: HEPARIN SOD INJ 1000 UNIT/ML VIAL 10 ML 3300 UNIT INDWELLCAT (11:24)
[2024-12-02] MEDS: PANTOPRAZOLE INJ 40 MG VIAL IV (11:26)
[2024-12-02] MEDS: VALSARTAN 40 MG TABLET PO (11:27)
[2024-12-02] MEDS: cefTRIAXone/D5w 1gm IV premix 1 GM/50 ML BAG IV (11:32)
--- NOTE | 2024-12-02 13:54 | PD.RESDS ---
Planned Discharge Date 12/02/24 DS: Providers Provider Date of admission: 11/28/24 23:19 Primary care physician: DARIAN Winter([facility]) Admitting Provider: Renata Zamora MD Attending Provider on Admission: Renata Zamora MD Consults: 11/28/24 23:24 Consult to Gastroenterology Stat Comment: Upper GI bleed Consulting Provider: Luther Castorena 11/28/24 23:37 Consult to Nephrology Stat Comment: ESRD on dialysis m/w/f, planned MRI w contrast Consulting Provider: Kailey Awad 11/29/24 10:15 Consult to Neurology / Tele-Neurology Routine Comment: Consulting Provider: Kaleb Chan Instructions: MRI ordered for seizure work-up but pacemaker placed 10/25/2024, recommended to wait 6-8 weeks s/p placement. Requesting recommendations whether MRI should be obtained despite recommendations. 12/01/24 09:46 Referral Physical Therapy Routine Comment: Physician Instructions: Attending Provider on DC: Conchita Zepeda MD Discharging Provider: Conchita Zepeda MD DS: Diagnosis Problem List Completed Was Problem List Reviewed/Reconciled?: Yes Hospital Course Hospital Course Hospital course: Ms. Toro is a 64-year-old female with past medical history significant for end-stage renal disease on hemodialysis M/W/F (previously on peritoneal dialysis, stopped in March 2024), esophageal ulcers, CAD status post CABG, pacemaker placement September 2024, type 2 diabetes, hypotension on midodrine who was brought to [facility] ED complaining of general weakness and coffee-ground emesis. In the ED pt also had an episode of seizure like activity witnessed by daughter at bedside. Pt was admitted to the hospital for further management as well neurologist Dr. Chan was consulted. Pt remained asymptomaatic and did not have any repeat seizure like activity therefore per neurologist pt is not recommended anti epileptic medications. Pt underwent EEG which results were within normal limits. Pt also underwent EGD which show no evidence of active bleeding, however showed PUD, esophagitis with erythematous mucosa without signs of bleeding. During hospitalization pt's urinalysis was positive for UTI and was given 5 days of ceftriaxone. Although at home pt has hypotension and takes midodrine as needed, however during hospitalization Pt persistently had hypertension therefore valsartan 40mg daily was started which controlled the BP. Pt has resolution of her symptoms, denies nausea or vomiting and is able to tolerate oral diet. Pt is hemodynamically stable to be discharged home to self care. Pt is advised if her symtoms worsen or return to promptly return to the ED. Discharge Recommendations -Follow up with your primary care physician within 1 week -Follow up with neurologist Dr. Chan outpatient -You have been started on a blood pressure medication due to persistent high blood pressure during hospitalization. Please take valsartan if BP is systolic above 140 and if your systolic blood pressure is below 110 please take midodrine -Continue all your medications as prescribed -If your symptoms return or worsen to return to the ED promptly Hospitalization Diagnosis #Upper GI bleed resolved #History of esophageal ulcers #? Peritoneal dialysis catheter infection #History of PD catheter related peritonitis #? Urinary tract infection #Episode of generalized tonic seizure #Acute encephalopathy #Hypertensive emergency #Hypertension #Hx of Hypotension #History of type 2 diabetes, A1c 4.6% #ESRD on hemodialysis (M/W/F) #Hx of CAD s/p CABG Assessment and plan discussed with my attending physician Dr. Noah Zepeda (PGY-1)- Internal medicine resident Time Spent with Patient Time attestation: Total time spent providing and/or coordinating discharge services: Time spent: Less than 30 minutes Quality: Stroke Pt Provided Written Stroke Discharge Instructions: Yes Exam Vital Signs Temp Pulse Resp BP Pulse Ox O2 Del Method O2 Flow Rate 97.7 F 81 16 154/57 H 98 Room Air 2 12/02/24 11:14 12/02/24 12:00 12/02/24 11:14 12/02/24 11:27 12/02/24 11:14 12/02/24 07:25 12/01/24 12:00 Narrative Exam GENERAL: A&Ox3 able to answer questions, pt is uncomfortable due to nausea NEURO: no focal neurological deficits HEENT: Atraumatic, Normocephalic. mucous membranes moist. Eyes open, symmetrical, & clear HEART: Normal Heart Sounds LUNGS: Clear to auscultation with no wheezing or crackles. ABDOMEN: soft, non-distended, non-tender, bowel sounds heard, no guarding or rebound tenderness, peritoneal dialysis port present in th RUQ SKIN: No Rash or ecchymoses EXTREMITIES: No edema, tenderness, able to move all 4 extremities, pedal pulses palpated Discharge Plan Plan Patient Disposition: HOME (Self Care) Care Plan Goals: -Follow up with your primary care physician within 1 week -Follow up with neurologist Dr. Chan outpatient -You have been started on a blood pressure medication due to persistent high blood pressure during hospitalization. Please take valsartan if BP is systolic above 140 and if your systolic blood pressure is below 110 please take midodrine -Continue all your medications as prescribed -If your symptoms return or worsen to return to the ED promptly Prescriptions/Referrals Prescriptions/Med Rec: New valsartan 40 mg Tablet 40 mg PO QDAY PRN (Reason: SBP >140) Qty: 30 3RF Continued calcitriol 0.25 mcg Capsule 0.5 mcg PO .qhs aspirin [Adult Low Dose Aspirin] 81 mg tablet,delayed release (DR/EC) 81 mg PO QDAY atorvastatin 40 mg tablet 40 mg PO QDAY clopidogrel 75 mg tablet 75 mg PO QDAY Tradjenta 5 mg tablet 5 mg PO QDAY midodrine 10 mg tablet 10 mg PO TID PRN (Reason: SBP under 130) duloxetine [Cymbalta] 30 mg capsule,delayed release(DR/EC) 30 mg PO BID metoclopramide HCl [Reglan] 5 mg tablet 5 mg PO PRN PRN (Reason: nausea) ascorbate calcium (vitamin C) 500 mg tablet 1 g PO QDAY Discontinued losartan 50 mg tablet 50 mg PO QDAY atorvastatin 20 mg tablet 20 mg PO QDAY furosemide 80 mg tablet 80 mg PO QDAY PRN (Reason: SOB) pantoprazole 40 mg tablet,delayed release (DR/EC) 40 mg PO BID metoprolol tartrate 50 mg tablet 50 mg PO QDAY docusate sodium 250 mg capsule 250 mg PO BID loratadine 10 mg tablet 10 mg PO QDAY ibuprofen 600 mg tablet 600 mg PO Q6H Qty: 30 0RF acetaminophen 325 mg capsule 325 mg PO PRN PRN (Reason: pain) No Action B complex-vitamin C-folic acid 0.8 mg tablet 1 tab PO QDAY Patient Comments: elaine 60/300-6-8 Referrals: Catalina Angulo FNP ([facility]) [Primary Care Provider] - Patient/Caregiver Discharge Instructions Education Materials: Coping with Kidney Failure, CKD Dc, ED Seizure New Onset Unknown ... Print Language: Divehi Stand Alone Forms: Lou Award Info., Patient Portal Info Letter Discharge Order Discharge Orders: Discharge (Routine); Ordered 12/02/24 Ordered By: Conchita Zepeda Quality Discharge Quality Measures VTE prophylaxis MD Attestestation MD Attestation I attest that I was physically present for the evaluation, physical examination, lab and imaging review of the patient with the residents. I discussed the case with the residents and agree with the findings and plans of care as documented above. Renata Zamora MD
--- NOTE | 2024-12-02 16:19 | ESPR_ITS ---
RE: KAREN BARNES : 1960 DATE OF SERVICE: 12/02/2024 HISTORY OF PRESENT ILLNESS: Briefly, this is a 64-year-old woman with type 2 diabetes with nephropathy, neuropathy, and retinopathy, hypertension, and ESRD on dialysis every Monday, Monday, and Monday. She used to be on PD from 01/2022 to 03/2024, who presented to emergency room on 11/28/2024 with generalized weakness and complaining of hematemesis. The patient has also history of esophageal ulcers in the past. While in the hospital, she also had an EGD done, which showed esophagitis. No ulcer was found. The patient also had a seizure while in the emergency room when blood pressure was elevated at 222/112. CT of the head did not show any CVA. Brain MRI also did not show any CVA; however, there was an increased signal on the FLAIR image in cortex of the parietal and occipital lobes posteriorly. An encephalopathy could be secondary to proximal posterior encephalopathy. Neurologist confirmed that patient has PRES or posterior reversible encephalopathy syndrome. The patient never had another episode of seizure while in the hospital. She was also dialyzed on her scheduled days while in the hospital. She is doing much better today and has no confusion. She is expecting to be discharged anytime today. PHYSICAL EXAMINATION: General: She is awake, alert, and oriented. Vital Signs: Blood pressure is 154/87 and heart rate of 78. HEENT: Anicteric sclerae. Normocephalic. Neck: Supple. JVD. Chest and Lungs: Symmetrical expansion. Clear breath sounds. Cardiac: Without murmur. Abdomen: Soft and nontender. Extremities: No edema. LABORATORY DATA: Hemoglobin 12.9, WBC 11,000, and platelet count 226,000. Sodium 136, potassium 3.1, chloride 98, CO2 is 26.9, BUN 18, creatinine 3.5, and calcium 9.1. ASSESSMENT: 1. End-stage renal disease secondary to diabetic nephropathy and hypertensive nephrosclerosis. 2. Tonic-clonic seizure secondary to hypertensive emergency, now resolved. 3. Uncontrolled hypertension. 4. Posterior reversible encephalopathy syndrome. 5. Labile blood pressures. 6. History of coronary artery disease, status post coronary artery bypass grafting. 7. History of cerebrovascular accident. 8. Esophagitis. PLAN: The patient can be discharged anytime. The patient had dialysis earlier today. About 1200 mL of fluid was removed. She will be dialyzed on Monday at the [facility] once discharged. DT: 15:32:07 TT: 16:17:00 Ref: [id number] - TID: [id number]
--- NOTE | 2024-12-02 19:53 | ESPR_ITS ---
Documentation for date of: 12/02/24 Subjective Subjective Interval history: Late entry for the note Case discussed with the internal medicine team Hemoglobin hematocrit stable at 12.9 and 39.9 Still nauseous but Geraldo is working She can be discharged to be followed as an outpatient Exam Vital Signs Temp Pulse Resp BP Pulse Ox O2 Del Method O2 Flow Rate 97.2 F 78 16 154/87 H 100 Room Air 2 12/02/24 12:00 12/02/24 12:00 12/02/24 12:00 12/02/24 12:00 12/02/24 12:00 12/02/24 12:00 12/01/24 12:00 Objective Labs 12/02/24 09:12 12/02/24 09:12 Labs: Laboratory Results - last 24 hr 11/30/24 12/02/24 05:50 09:12 WBC 11.0 RBC 4.17 Hgb 12.9 Hct 39.9 MCV 96 MCH 30.9 MCHC 32.3 RDW Std Deviation 58.1 H Plt Count 226 D Neut % (Auto) 82 H Lymph % (Auto) 9 L [place] % (Auto) 6 Eos % (Auto) 1 Baso % (Auto) 1 Neut # (Auto) 9.1 H Lymph # (Auto) 1.0 [place] # (Auto) 0.7 Eos # (Auto) 0.1 Baso # (Auto) 0.1 Immature Gran # (Auto) 0.11 H Absolute Nucleated RBC 0.03 H Immature Gran % 1 H Nucleated RBC % 0 Sodium 136 Potassium 3.1 L Chloride 98 Carbon Dioxide 26.9 Anion Gap 11 BUN 18 Creatinine 3.5 H D Estim Creat Clear Calc 15.2 L eGFR 14 L* BUN/Creatinine Ratio 5 L Glucose 209 H D Calculated Osmolality 279 Calcium 9.1 Corrected Calcium 9.1 Phosphorus 2.6 Magnesium 1.9 Total Bilirubin 0.4 AST 12 ALT 8 L Alkaline Phosphatase 73 Total Protein 7.2 Albumin 4.7 Globulin 2.5 Albumin/Globulin Ratio 1.9 Hepatitis A IgM Ab Non Reactive Hep Bs Antigen Non Reactive Hep Bs Antibody NonReact(Not Immune) L Hep B Core IgM Ab Non Reactive Hepatitis C Antibody Non Reactive Impressions Impression: Hematemesis due to gastritis and esophagitis Stable hemoglobin hematocrit Improved nausea Outpatient follow-up Assessment & Plan Time Spent With Patient Time: Total time spent is greater than 50% in coordination of care (as documented) at patient's floor/unit and/or counseling patient:
--- NOTE | 2024-12-02 23:55 | VVPN_ITS ---
Telemedicine visit statement This visit was conducted with the use of interactive audio and video telecommunications system that permits real time communication between the patient and the provider. Patient's verbal consent for virtual visit was obtained on 12/02/24 at 2355. Documentation for date of: 12/02/24 Virtual exam Vital Signs Temp Pulse Resp BP Pulse Ox O2 Del Method O2 Flow Rate 97.2 F 78 16 154/87 H 100 Room Air 2 12/02/24 12:00 12/02/24 12:00 12/02/24 12:00 12/02/24 12:00 12/02/24 12:00 12/02/24 12:00 12/01/24 12:00 Objective Labs 12/02/24 09:12 12/02/24 09:12 Labs: Laboratory Results - last 24 hr 12/02/24 09:12 WBC 11.0 RBC 4.17 Hgb 12.9 Hct 39.9 MCV 96 MCH 30.9 MCHC 32.3 RDW Std Deviation 58.1 H Plt Count 226 D Neut % (Auto) 82 H Lymph % (Auto) 9 L [place] % (Auto) 6 Eos % (Auto) 1 Baso % (Auto) 1 Neut # (Auto) 9.1 H Lymph # (Auto) 1.0 [place] # (Auto) 0.7 Eos # (Auto) 0.1 Baso # (Auto) 0.1 Immature Gran # (Auto) 0.11 H Absolute Nucleated RBC 0.03 H Immature Gran % 1 H Nucleated RBC % 0 Sodium 136 Potassium 3.1 L Chloride 98 Carbon Dioxide 26.9 Anion Gap 11 BUN 18 Creatinine 3.5 H D Estim Creat Clear Calc 15.2 L eGFR 14 L* BUN/Creatinine Ratio 5 L Glucose 209 H D Calculated Osmolality 279 Calcium 9.1 Corrected Calcium 9.1 Phosphorus 2.6 Magnesium 1.9 Total Bilirubin 0.4 AST 12 ALT 8 L Alkaline Phosphatase 73 Total Protein 7.2 Albumin 4.7 Globulin 2.5 Albumin/Globulin Ratio 1.9
== END 2024-12-02 14:45 | disposition home or self-care (01) | DRG 871 ==
LOC: SERX 20:33 → SERHOLD 23:37 → S2NX 11-29 01:47
PROVIDERS: Internal Medicine Nephrology; Physician Assistant; Specialist; Admitting Provider Student in an Organized Health Care Education/Training Program; Emergency Provider Emergency Medicine; PCP Nurse Practitioner Primary Care; Visit Provider Student in an Organized Health Care Education/Training Program
PROC: 5A1D70Z Performance of Urinary Filtration, Intermittent, Less than 6 Hours Per Day (ICD-10-PCS; CPT 43239; principal; 2024-11-30 12:30)
DX: A41.9 Sepsis, unspecified organism (principal); G93.41 Metabolic encephalopathy; I67.83 Posterior reversible encephalopathy syndrome; N18.6 End stage renal disease; K20.91 Esophagitis, unspecified with bleeding; K29.61 Other gastritis with bleeding; K65.9 Peritonitis, unspecified; I16.1 Hypertensive emergency; N39.0 Urinary tract infection, site not specified; I12.0 Hypertensive chronic kidney disease with stage 5 chronic kidney disease or end stage renal disease; G40.89 Other seizures; I25.10 Atherosclerotic heart disease of native coronary artery without angina pectoris; K29.80 Duodenitis without bleeding; E11.22 Type 2 diabetes mellitus with diabetic chronic kidney disease; E11.319 Type 2 diabetes mellitus with unspecified diabetic retinopathy without macular edema; E11.40 Type 2 diabetes mellitus with diabetic neuropathy, unspecified; K44.9 Diaphragmatic hernia without obstruction or gangrene; R65.20 Severe sepsis without septic shock; Z99.2 Dependence on renal dialysis; Z86.73 Personal history of transient ischemic attack (TIA), and cerebral infarction without residual deficits; Z95.0 Presence of cardiac pacemaker; Z95.1 Presence of aortocoronary bypass graft; Z79.82 Long term (current) use of aspirin; Z79.02 Long term (current) use of antithrombotics/antiplatelets; Z79.84 Long term (current) use of oral hypoglycemic drugs; Z79.899 Other long term (current) drug therapy
CPT/HCPCS: 36415; 70450; 70496; 70498; 70553; 71045; 80053; 80074; 80307; 81001; 82550; 83036; 83605; 83615; 83735; 84100; 84439; 84443; 84450; 84484; 85025; 85610; 85730; 86706; 86850; 86900; 86901; 87040; 87077; 87086; 87186; 93005; 94640; 94664; 95816; 96365; 96374; 96375; 99285; A4216; A4649; A9270; A9579; J0360; J0696; J1200; J1630; J1643; J1815; J2060; J2250; J2354; J2405; J2470; J2765; J2997; J3010; J3490; J7050; P9047; Q9967; J1920

== ENCOUNTER 2025-01-07 20:07 | Inpatient (IN) | payer MEDICARE, MEDICAID, SELFPAY ==
[2025-01-07] VITALS (11 sets, daily range): BP systolic 150–228; BP diastolic 80–151; PULSE 108–120; RESP 16–20; TEMP 36.5–36.8; O2SAT 97–99; BMI 25.8
--- NOTE | 2025-01-07 20:17 | EDNOTE_ITS ---
ED General RME/HPI General Chief complaint: Headache Stated complaint: NAUSEA, VOMITING AND HEADACHE Time Seen by Provider: 01/07/25 20:16 Arrival date/time: 01/07/25 20:07 CC: Nausea vomiting hypertension HPI woke up from a nap at 2 PM with nausea and vomiting denies diarrhea. 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 She is awake alert orient denies any headache. Hypertensive at 210/110. Patient denies chest pain shortness of breath recently discharged from this facility with a diagnosis of posterior reversible encephalopathy syndrome. Patient had a full round of dialysis yesterday Monday, January 06, 2025. Related Data Home Medications ?Medication ?Instructions ?Recorded ?Confirmed calcitriol 0.25 mcg capsule 0.5 mcg PO .qhs 09/15/23 0 01/08/25 Held on 01/11/25. Instructions: Hold until you see your PCP aspirin 81 mg tablet,delayed 81 mg PO HS 11/28/2412/26 release (Adult Low Dose Aspirin) atorvastatin 40 mg tablet 40 mg PO HS 11/28/24 5 clopidogrel 75 mg tablet 75 mg PO HS 11/28/24 5 duloxetine 30 mg capsule,delayed 30 mg PO BID 11/28/24 01/08/25 release (Cymbalta) linagliptin 5 mg tablet (Tradjenta) 5 mg PO HS 5 01/08/25 midodrine 10 mg tablet 10 mg PO TID PRN SBP under 1 30 11/28/24 01/08/25 ascorbate calcium (vitamin C) 500 1 g PO HS 12/01/24 0 01/08/25 mg tablet vitamin B complex-vitamin C-folic 1 tab PO QDAY 01/08/25 acid 0.8 mg tablet meclizine 25 mg tablet 25 mg PO PRN PRN dizziness 0 01/08/25 01/08/25 Previous Rx's ?Medication ?Instructions ?Recorded valsartan 40 mg tablet 40 mg PO QDAY PRN SBP >140 # 30 tabs 12/02/24 metoclopramide HCl 5 mg tablet 5 mg PO Q8H PRN nausea and 01/11/25 vomiting 2 weeks #42 tabs psyllium husk 0.4 gram capsule 0.4 g PO QDAY 1 month # 30 caps 01/11/25 (Metamucil) ampicillin 500 mg capsule 500 mg PO BID 5 days #10 cap s 01/12/25 erythromycin ethylsuccinate 200 200 mg (5 mL) PO DAILY 14 days #70 01/12/25 mg/5 mL oral powder for suspension mL ondansetron 4 mg disintegrating 4 mg PO Q6HR PRN nause a and 01/12/25 tablet vomiting 1 month #120 tabs Allergies Allergy/AdvReac Type Severity Reaction Status Date / Time No Known Allergies Allergy Verified 01/07/25 20:14 Review of Systems Review of Systems Narrative Review of Systems: GEN: No fever, no chills, no weight loss EYES: No discharge, no visual changes, no pain HEENT: No ear pain, no congestion, no sore throat PULM: No shortness of breath, no cough, no congestion CV: No chest pain, no dyspnea on exertion, no palpitations GI: + nausea, no vomiting, no diarrhea, no pain, no constipation : No frequency, no urgency, no dysuria MUSC/SKEL: No joint pain, no back pain SKIN: No rash PSYCH: No hallucinations, no depression HEME/LYMPH: No easy bleeding or bruising tendencies NEURO: No weakness, no headache Past Medical History Past Medical History NEUROLOGIC: Positive Neurological Disorders, Cerebrovascular Accident (10 YEARS AGO - NO RESIDUAL EFFECTS) and Seizures CARDIAC: Positive Cardiac Disorders, Hypercholesterolemia, Hypertension and Hypotension; Negative Congestive Heart Failure RESPIRATORY: Negative Chronic Obstructive Pulmonary Disease (COPD) or Asthma GASTROINTESTINAL: Positive Gastrointestinal Disorders and Gastroesophageal Reflux Disease GENITOURINARY: Positive Genitourinary Disorders, Renal Disease and Dialysis MUSCULOSKELETAL: Negative Musculoskeletal Disorders ENDOCRINE: Positive Endocrine Disorders and Diabetes Mellitus Type 2; Negative Diabetes Mellitus Type 1 HEMATOLOGIC: Negative Blood Disorders or Sickle Cell Disease OTHER HISTORY: Positive Chicken Pox, Measles and Mumps; Negative Blood Transfusions, Anesthesia Reactions or Cancer Family History FAMILY HISTORY: Positive Family Cancer Surgical History SURGICAL: Positive Open Heart Surgery, Pacemaker, Abdominal Surgery, Hysterectomy and Section Social History SMOKING STATUS: Never smoker SUBSTANCE USE: does not use ED Exam Narrative Physical exam: [General: Mild discomfort not in any acute distress Head normocephalic HEENT: Within acceptable limits Neck is supple nontender Chest equal chest rise nontender to palpation Respiratory: Clear to auscultation no wheezes crackles or rubs CV: Rate rhythm is regular no murmurs rubs or clicks Abdomen is soft nontender no masses positive bowel sounds all 4 quadrants Back: No CVA tenderness no spinous process tenderness from cervical spine thoracic and lumbar spine Skin: Intact no petechiae rash induration ulceration or crepitus Extremities: Moving all extremity against resistance cap refill less than 2 seconds neurosensory intact Neuro: Awake alert oriented x3 Glascow coma 15 no focal deficits] Course Course Course Narrative: At 2112, the patient is pressure noted to be 180/91, the patient is sleeping with no active vomiting. Patient has an 18,000 white count however she is afebrile, I feel that this is stress-induced the marginalization there is no other clinical finding indicates infectious process. Patient is already been given Compazine Reglan and Zofran for nausea and continues to be nausea with mild vomiting. Pressure has been reduced to 180/90- 100 diastolic after 210 mg doses of hydralazine. My concerns the patient has posterior reversible encephalopathy syndrome and both of these symptoms need to be mediated quickly as possible. Of trying to make the patient is comfortable. This time I am concerned the patient may need to be admitted for further emetic management. And tighter blood pressure control. Quality Measures none Orders Category Date Time Status COVID-19 Screening Questionnaire NOW Care 01/08/25 00:07 Completed Beer Coil Cleaner Q4H START 00 Care 01/07/25 20:20 Completed Decision to Admit X1 Care 01/08/25 00:07 Completed EKG (ED ONLY) *Do not use* NOW Care 01/07/25 20:22 Completed IV [Insert IV] STAT Care 01/07/25 20:[address] head/brain wo con Stat Exams 01/07/25 22:07 Completed EKG (ED Only) Stat Exams 01/07/25 20:22 Draft B-Type Natriuretic Peptide Stat Lab 01/07/25 20:54 Completed CBC Stat Lab 01/07/25 20:54 Completed Comprehensive Metabolic Panel Stat Lab 01/07/25 20:54 Completed Drug Screen,Urine Stat Lab 01/07/25 21:01 Completed LDH (Lactate Dehydrogenase) Stat Lab 01/07/25 20:54 Completed Magnesium Stat Lab 01/07/25 20:54 Completed Partial Thromboplastin Time Stat Lab 01/07/25 20:54 Completed Prothrombin Time with INR Stat Lab 01/07/25 20:54 Completed Troponin I Stat Lab 01/07/25 20:54 Completed Urinalysis Stat Lab 01/07/25 21:01 Completed Metoclopramide Inj [Reglan Inj] Med 01/07/25 21:45 Discontinued 10 mg IVP X1 ONE Ondansetron Inj [Zofran Inj] Med 01/07/25 22:07 Discontinued 4 mg IV X1 ONE Palonosetron HCl [Aloxi Inj] Med 01/07/25 22:42 Discontinued 0.25 mg IV X1 ONE Prochlorperazine Inj [Compazine Inj] Med 01/07/25 20:16 Discontinued 10 mg IV X1 ONE Scopolamine [Transderm-Scop Patch] Med 01/07/25 22:40 Discontinued 1 mg TOP X1 ONE hydrALAZINE INJ [Apresoline Inj] Med 01/07/25 20:16 Discontinued 10 mg IV X1 ONE hydrALAZINE INJ [Apresoline Inj] Med 01/07/25 20:49 Discontinued 10 mg IV X1 ONE Vital Signs Vital signs: Vital Signs Temperature 97.7 F 01/07/25 20:19 Pulse Rate 112 H 01/07/25 20:19 Respiratory Rate 18 01/07/25 20:19 Blood Pressure 222/151 H 01/07/25 20:19 Pulse Oximetry (%) 98 01/07/25 20:19 Oxygen Delivery Method Room Air 01/07/25 20:19 Discharge Plan Plan Patient Disposition: Admit Acute Care w/in Hospital Patient condition on transfer: Stable Problem List Clinical Impression: Intractable vomiting, Hypertension, PRES (posterior reversible encephalopathy syndrome) Patient/Caregiver Discharge Instructions Discharge Activity: activity as tolerated PA/MEDICAL MASSAGE THERAPIST Supervising Physician RAE/MEDICAL MASSAGE THERAPIST Supervising Physician: David José ENP, MD Attestation Attestation I was asked by David José NP to review the final head CT report. My review of the head CT report is no acute findings. I discussed the case with our hospitalist.? About the presentation and exam and diagnostics and treatments here.? And need of further care in the hospital.? Will accept the patient. Jaime Juarez MD [facility] Clinical Information Provided by: patient and EMS Medical Records reviewed [facility] and EMS Meds/Rx considered, not ordered None Labs/Rad/Tests considered, not ordered None Chronic Illness/Social Conditions Explain: Posterior reversible encephalopathy syndrome, ESRD, dialysis, recent CABG EKG Interpretation EKG #1: EKG Interpretation: EKG performed at 2025 shows a ventricular rate of 113 NJ interval 184 QRS of 95 QTc of 420 sinus tachycardia left axis deviation the baseline wander in V4. When compared to an old EKG of 321 22,025 there are no significant changes. Labs Lab(s) Interpretation(s): CBC shows leukocytosis of 18.6 no anemia thrombocytopenia Coags show a PTT of 21.4 otherwise unremarkable CMP shows no significant electrolyte imbalances BUN of 23 creatinine of 3.5. Note the patient is on dialysis Monday and Monday and had a full session of dialysis on Monday. Glucose of 250. No transaminitis or T. bili elevation BMP 144 troponin is within acceptable limits Medication Administration(s) Medication Administration History Discontinued Medications Aspirin (Aspirin Ec 81 Mg Tabec) 81 mg PO QDAY [facility] Stop: 02/08/25 11:59 Last Admin: 01/09/25 12:31 Dose: Not Given Documented By: AARTI Non-Admin Reason: Nausea Aspirin (Aspirin 300 Mg Supp) 150 mg NJ QDAY [facility] Stop: 02/08/25 15:44 Last Admin: 01/12/25 08:36 Dose: 150 mg Documented By: Admin: 01/11/25 09:20 Dose: 150 mg Documented By: Admin: 01/10/25 11:37 Dose: Not Given Documented By: AARTI Non-Admin Reason: on hold Admin: 01/09/25 16:34 Dose: 150 mg Documented By: AARTI Dextrose (Dextrose 50%-Water Inj 50 Ml Syringe) 25 ml IV Q15MIN PRN PRN Reason: BG 50-70 responsive npo pt Stop: 02/07/25 01:53 Dextrose (Dextrose 50%-Water Inj 50 Ml Syringe) 50 ml IV Q15MIN PRN PRN Reason: BG <50 OR BG <70 & pt unresponsive Stop: 02/07/25 01:53 Erythromycin Ethylsuccinate (Erythromycin E-Succ Susp 200 Mg/5 Ml) 200 mg PO DAILY ALEX Stop: 01/19/25 08:59 Last Admin: 01/12/25 08:38 Dose: 200 mg Documented By: PARI Glucagon (Glucagon Inj 1 Mg Vial) 1 mg IM Q15MIN PRN PRN Reason: BG <70, and no IV access Heparin Sodium (Porcine) (Heparin Sod Inj 5000 Unit/Ml Vial) 5,000 unit SC Q8HR ALEX Stop: 01/22/25 00:59 Last Admin: 01/08/25 05:01 Dose: 5,000 unit Documented By: GG Co-signed By: WB Admin: 01/08/25 01:24 Dose: 5,000 unit Documented By: EE Co-signed By: ROSITA Heparin Sodium (Porcine) (Heparin Sod Inj 1000 Unit/Ml Vial 10 Ml) 3,300 unit INDWELLCAT X1 PRN PRN Reason: DIALYSIS Stop: 01/22/25 08:54 Last Admin: 01/10/25 11:29 Dose: 3,300 unit Documented By: MM Co-signed By: AARTI Admin: 01/08/25 10:16 Dose: 3,300 unit Documented By: MM(2) Co-signed By: ED Hydralazine HCl (Hydralazine Inj 20 Mg/Ml Vial) 10 mg IV X1 ONE Stop: 01/07/25 20:17 Last Admin: 01/07/25 20:28 Dose: 10 mg Documented By: CCT Hydralazine HCl (Hydralazine Inj 20 Mg/Ml Vial) 10 mg IV X1 ONE Stop: 01/07/25 20:50 Last Admin: 01/07/25 21:58 Dose: 10 mg Documented By: CCT Sodium Chloride (Ns) 1,000 mls @ 100 mls/hr IV .Q10H ALXE Stop: 01/08/25 05:44 Last Admin: 01/08/25 02:35 Dose: Not Given Documented By: CCT Non-Admin Reason: Allergy Ceftriaxone Sodium/Dextrose (Rocephin/D5w 1gm Iv Premix) 1 gm in 50 mls @ 100 mls/hr IV QDAY [facility] Stop: 01/15/25 08:59 Last Infusion: 01/11/25 09:51 Dose: Infused Documented By: Admin: 01/11/25 09:21 Dose: 100 mls/hr Documented By: Infusion: 01/10/25 12:17 Dose: Infused Documented By: Admin: 01/10/25 11:47 Dose: 100 mls/hr Documented By: Infusion: 01/09/25 08:55 Dose: Infused Documented By: Admin: 01/09/25 08:25 Dose: 100 mls/hr Documented By: Infusion: 01/08/25 08:31 Dose: Infused Documented By: Admin: 01/08/25 08:01 Dose: 100 mls/hr Documented By: MARION Sodium Chloride (Ns) 500 mls @ 100 mls/hr IV .Q5H ONE Stop: 01/08/25 06:48 Last Admin: 01/08/25 02:14 Dose: 100 mls/hr Documented By: CCT Sodium Chloride (Ns) 500 mls @ 70 mls/hr IV .Q7H9M ONE Stop: 01/08/25 21:24 Last Admin: 01/08/25 14:24 Dose: 70 mls/hr Documented By: MARION Acetaminophen (Ofirmev Inj) 1,000 mg in 100 mls @ 250 mls/hr IV X1 ONE Stop: 01/10/25 00:28 Last Admin: 01/10/25 00:39 Dose: 250 mls/hr Documented By: VR Albumin Human (Albuminar-25 Ivpb) 25 gm in 100 mls @ 100 mls/min IV PRN PRN PRN Reason: DIALYSIS Last Admin: 01/10/25 08:48 Dose: 100 mls/min Documented By: JULIETTE Acetaminophen (Ofirmev Inj) 1,000 mg in 100 mls @ 250 mls/hr IV X1 ONE Stop: 01/10/25 09:55 Last Admin: 01/10/25 09:54 Dose: 250 mls/hr Documented By: JULIETTE Vancomycin/Sodium Chloride (Vancomycin/Ns 1 Gm Ivpb) 200 mls @ 120 mls/hr IV X1 ONE Stop: 01/11/25 12:39 Last Admin: 01/11/25 11:40 Dose: 120 mls/hr Documented By: BRIANNA Potassium Chloride (Kcl Ivpb) 10 meq in 100 mls @ 100 mls/hr IV X1 ONE Stop: 01/12/25 08:25 Last Admin: 01/12/25 08:35 Dose: 100 mls/hr Documented By: PARI Ampicillin Sodium 1,000 mg/ (Sodium Chloride) 50 mls @ 100 mls/hr IV X1 ONE Stop: 01/12/25 08:14 Last Admin: 01/12/25 10:45 Dose: 100 mls/hr Documented By: BRIANNA Insulin Human Lispro (Insulin Lispro (Admelog) 1 Unit/0.01 Ml Unit) 0 unit SC AC ALEX; Protocol Stop: 02/07/25 07:29 Last Admin: 01/12/25 11:00 Dose: Not Given Documented By: BRIANNA Non-Admin Reason: Per Protocol Admin: 01/12/25 08:23 Dose: Not Given Documented By: PARI Non-Admin Reason: Per Protocol Admin: 01/11/25 17:06 Dose: Not Given Documented By: BRIANNA Non-Admin Reason: Per Protocol Admin: 01/11/25 11:33 Dose: Not Given Documented By: BRIANNA Non-Admin Reason: Per Protocol Admin: 01/11/25 07:44 Dose: 2 unit Documented By: BRIANNA Co-signed By: JEAN CLAUDE Admin: 01/10/25 16:41 Dose: Not Given Documented By: AARTI Non-Admin Reason: Per Protocol Admin: 01/10/25 11:46 Dose: Not Given Documented By: AARTI Non-Admin Reason: Per Protocol Admin: 01/10/25 07:18 Dose: Not Given Documented By: AARTI Non-Admin Reason: Per Protocol Admin: 01/09/25 16:54 Dose: 1 unit Documented By: AARTI Co-signed By: KRISTINE Admin: 01/09/25 11:39 Dose: Not Given Documented By: AARTI Non-Admin Reason: Per Protocol Admin: 01/09/25 07:51 Dose: 1 unit Documented By: AARTI Co-signed By: KRISTINE Admin: 01/08/25 17:01 Dose: 1 unit Documented By: MARION Co-signed By: RJ Admin: 01/08/25 11:46 Dose: Not Given Documented By: MARION Non-Admin Reason: Not In Room Admin: 01/08/25 07:47 Dose: 1 unit Documented By: MARION Co-signed By: BRIANNA Labetalol HCl (Labetalol Inj 5 Mg/Ml Vial 20 Ml) 40 mg IVP Q4HR ALEX Stop: 02/07/25 01:59 Last Admin: 01/08/25 02:35 Dose: Not Given Documented By: CCT Non-Admin Reason: Cancelled by Provider Labetalol HCl (Labetalol Inj 5 Mg/Ml Vial 20 Ml) 20 mg IVP Q4HR ALEX Stop: 02/07/25 02:44 Last Admin: 01/08/25 05:07 Dose: Not Given Documented By: PARI Non-Admin Reason: Vital Signs Comments: not given as per MD orders, DBP <100 (171/99) Admin: 01/08/25 03:09 Dose: 20 mg Documented By: CLARIBEL Labetalol HCl (Labetalol Inj 5 Mg/Ml Vial 20 Ml) 10 mg IVP Q4HR PRN PRN Reason: SBP > 180 Stop: 02/07/25 02:44 Last Admin: 01/09/25 07:23 Dose: 10 mg Documented By: Admin: 01/08/25 23:57 Dose: 10 mg Documented By: DEX Labetalol HCl (Labetalol Inj 5 Mg/Ml Vial 20 Ml) 10 mg IVP Q2H PRN PRN Reason: SBP > 180 Stop: 02/07/25 08:23 Last Admin: 01/10/25 12:00 Dose: 10 mg Documented By: Admin: 01/09/25 18:40 Dose: 10 mg Documented By: Admin: 01/09/25 16:34 Dose: 10 mg Documented By: AARTI Metoclopramide HCl (Metoclopramide Inj 5 Mg/Ml Vial 2 Ml) 10 mg IVP X1 ONE; Protocol Stop: 01/07/25 21:46 Last Admin: 01/07/25 21:58 Dose: 10 mg Documented By: CLARIBEL Metoclopramide HCl (Metoclopramide 5 Mg Tablet) 10 mg PO Q6H PRN PRN Reason: NAUSEA OR VOMITING Stop: 02/07/25 00:43 Metoclopramide HCl (Metoclopramide Inj 5 Mg/Ml Vial 2 Ml) 5 mg IVP Q6HR PRN; Protocol PRN Reason: vomiting Stop: 02/07/25 05:59 Last Admin: 01/09/25 12:35 Dose: 5 mg Documented By: Admin: 01/09/25 06:12 Dose: 5 mg Documented By: Admin: 01/08/25 23:58 Dose: 5 mg Documented By: Admin: 01/08/25 18:18 Dose: 5 mg Documented By: Admin: 01/08/25 12:01 Dose: 5 mg Documented By: Admin: 01/08/25 04:45 Dose: 5 mg Documented By: PARI Metoclopramide HCl (Metoclopramide Inj 5 Mg/Ml Vial 2 Ml) 10 mg IVP Q6HR PRN; Protocol PRN Reason: vomiting Stop: 02/07/25 05:59 Last Admin: 01/11/25 19:06 Dose: 10 mg Documented By: Admin: 01/11/25 12:32 Dose: 10 mg Documented By: Admin: 01/11/25 01:24 Dose: 10 mg Documented By: Admin: 01/10/25 19:19 Dose: 10 mg Documented By: Admin: 01/10/25 13:01 Dose: 10 mg Documented By: Admin: 01/10/25 06:16 Dose: 10 mg Documented By: Admin: 01/10/25 00:30 Dose: 10 mg Documented By: Admin: 01/09/25 18:39 Dose: 10 mg Documented By: AARTI Metoclopramide HCl (Metoclopramide Inj 5 Mg/Ml Vial 2 Ml) 5 mg IVP Q6HR ALEX; Protocol Stop: 02/10/25 20:14 Last Admin: 01/12/25 12:00 Dose: 5 mg Documented By: RICKONCelestina Admin: 01/12/25 05:51 Dose: 5 mg Documented By: Admin: 01/12/25 00:07 Dose: 5 mg Documented By: Admin: 01/11/25 20:38 Dose: 5 mg Documented By: AM Ondansetron HCl (Ondansetron Inj 2 Mg/Ml Inj 2 Ml) 4 mg IV X1 ONE; Protocol Stop: 01/07/25 22:08 Last Admin: 01/07/25 22:17 Dose: 4 mg Documented By: CCT Ondansetron HCl (Ondansetron Inj 2 Mg/Ml Inj 2 Ml) 4 mg IV Q6H PRN; Protocol PRN Reason: NAUSEA OR VOMITING Stop: 02/07/25 00:43 Last Admin: 01/08/25 07:25 Dose: 4 mg Documented By: MARION Ondansetron HCl (Ondansetron Inj 2 Mg/Ml Inj 2 Ml) 8 mg IV Q4HR PRN; Protocol PRN Reason: NAUSEA OR VOMITING Stop: 02/07/25 00:43 Last Admin: 01/11/25 16:33 Dose: 8 mg Documented By: Admin: 01/11/25 12:32 Dose: 8 mg Documented By: Admin: 01/11/25 06:28 Dose: 8 mg Documented By: Admin: 01/11/25 02:28 Dose: 8 mg Documented By: Admin: 01/10/25 22:23 Dose: 8 mg Documented By: Admin: 01/10/25 18:20 Dose: 8 mg Documented By: Admin: 01/10/25 14:13 Dose: 8 mg Documented By: Admin: 01/10/25 10:03 Dose: 8 mg Documented By: Admin: 01/10/25 05:57 Dose: 8 mg Documented By: Admin: 01/10/25 01:52 Dose: 8 mg Documented By: Admin: 01/09/25 21:05 Dose: 8 mg Documented By: Admin: 01/09/25 16:09 Dose: 8 mg Documented By: Admin: 01/09/25 11:33 Dose: 8 mg Documented By: Admin: 01/09/25 07:22 Dose: 8 mg Documented By: Admin: 01/09/25 03:02 Dose: 8 mg Documented By: Admin: 01/08/25 20:13 Dose: 8 mg Documented By: Admin: 01/08/25 14:20 Dose: 8 mg Documented By: MARION Ondansetron HCl (Ondansetron Inj 2 Mg/Ml Inj 2 Ml) 4 mg IV Q6HR ALEX; Protocol Stop: 02/10/25 20:14 Last Admin: 01/12/25 12:00 Dose: 4 mg Documented By: Admin: 01/12/25 05:51 Dose: 4 mg Documented By: Admin: 01/12/25 00:07 Dose: 4 mg Documented By: Admin: 01/11/25 20:38 Dose: 4 mg Documented By: AM Palonosetron (Palonosetron Inj 0.25 Mg/5 Ml Vial) 0.25 mg IV X1 ONE Stop: 01/07/25 22:43 Last Admin: 01/07/25 23:53 Dose: Not Given Documented By: CCT Non-Admin Reason: Cancelled by Provider Pantoprazole Sodium (Pantoprazole Inj 40 Mg Vial) 40 mg IVP QDAY ALEX Stop: 02/07/25 15:44 Last Admin: 01/12/25 08:36 Dose: 40 mg Documented By: Admin: 01/11/25 09:20 Dose: 40 mg Documented By: Admin: 01/10/25 11:47 Dose: 40 mg Documented By: AARTI Comments: patient returned from dialysis Admin: 01/09/25 08:25 Dose: 40 mg Documented By: Admin: 01/08/25 15:40 Dose: 40 mg Documented By: MARION Pharmacy Consult (Vancomycin Pharmacy To Dose 1 Each Each) 1 each IV QDAY PRN PRN Reason: PROTOCOL Stop: 02/10/25 10:44 Potassium Chloride (Potassium Chloride 10% 20 Meq/15 Ml Udc) 8 meq PO X1 ONE Stop: 01/12/25 10:36 Last Admin: 01/12/25 10:55 Dose: 8 meq Documented By: BRIANNA Prochlorperazine Edisylate (Prochlorperazine Inj 5 Mg/Ml Vial 2 Ml) 10 mg IV X1 ONE; Protocol Stop: 01/07/25 20:17 Last Admin: 01/07/25 20:27 Dose: 10 mg Documented By: CLARIBEL Psyllium Hydrophilic Mucilloid (Psyllium 1 Pkt Packet) 1 pkt PO BID ALEX; Protocol Stop: 02/10/25 09:29 Last Admin: 01/12/25 08:37 Dose: 1 pkt Documented By: Admin: 01/12/25 00:06 Dose: Not Given Documented By: PEGGY Non-Admin Reason: Patient Refused Admin: 01/11/25 10:25 Dose: 1 pkt Documented By: BRIANNA Scopolamine (Scopolamine 1 Mg Tdsy) 1 mg TOP X1 ONE Stop: 01/07/25 22:41 Last Admin: 01/07/25 23:04 Dose: 1 mg Documented By: CLARIBEL Sennosides (Senna Tablet) 1 tab PO QDAY PRN; Protocol PRN Reason: constipation Stop: 02/07/25 00:43 Last Admin: 01/08/25 17:01 Dose: 1 tab Documented By: MARION Sennosides (Senna Tablet) 1 tab PO QDAY ALEX; Protocol Stop: 02/10/25 09:29 Last Admin: 01/12/25 08:37 Dose: 1 tab Documented By: Admin: 01/11/25 10:25 Dose: 1 tab Documented By: BRIANNA
--- NOTE | 2025-01-07 20:22 | EKG_ITS ---
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
[2025-01-07] MEDS: PROCHLORPERAZINE INJ 5 MG/ML VIAL 2 ML 10 MG IV (20:27)
[2025-01-07] MEDS: hydrALAZINE INJ 20 MG/ML VIAL 10 MG IV ×2 (20:28→21:58)
[2025-01-07 21:06] LABS: Basophils # (Auto) 0.1 Thou/mm3 (0.0-0.2); Basophils % (Auto) 0 % (0-2.5); Eosinophils % (Auto) 0 % (0-10); Hematocrit 43.2 % (36.0-46.0); Hemoglobin 13.9 g/dL (12.0-16.0); Immature Granulocytes % (Auto) 1 % (0-0); Immature Granulocytes Auto 0.15 Thou/mm3 (0.00-0.00); Lymphocytes % (Auto) 5 % (10-50); Mean Corpuscular HGB Conc 32.2 g/dl (31.0-37.0); Mean Corpuscular Volume 93 fL (80-100); Monocytes # (Auto) 0.4 Thou/mm3 (0.0-0.8); Monocytes % (Auto) 2 % (0-12); Neutrophils # (Auto) 17.1 Thou/mm3 (1.8-7.7); Neutrophils % (Auto) 92 % (37-80); Nucleated Red Blood Cell % 0 /100 WBC (0); Platelet Count 228 Thou/mm3 (140-440); RDW Standard Deviation 55.6 fL (36.4-46.3); Red Blood Count 4.63 Miln/mm3 (4.00-5.20); White Blood Count 18.6 Thou/mm3 (3.6-11.0)
[2025-01-07 21:29] LABS: Alanine Aminotransferase 10 U/L (10-49); Albumin, Serum 4.6 gm/dL (3.4-4.8); Albumin/Globulin Ratio 1.5 (1.2-2.2); Alkaline Phosphatase 99 U/L (46-116); Anion Gap 15 (7-16); Aspartate Amino Transferase 17 U/L (0-34); B-Type Natriuretic Peptide 144 pg/mL (0-100); BUN/Creatinine Ratio 7 Ratio (12-20); Bilirubin,Total 0.4 mg/dL (0.3-1.2); Blood Urea Nitrogen 23 mg/dL (9-23); Calcium 9.5 mg/dL (8.3-10.6); Calcium (Corrected) 9.5 mg/dL (8.5-10.1); Carbon Dioxide 24.3 mMol/L (20.0-31.0); Chloride 103 mMol/L (98-107); Creatinine (Component) 3.5 mg/dL (0.6-1.3); Estimated Creatinine Clearance 16.6 mL/min (>60); Glucose 250 mg/dL (74-106); LDH (Lactate Dehydrogenase) 246 U/L (120-246); Osmolality,Calculated 294 (275-295); Potassium 3.7 mMol/L (3.4-5.1); Sodium 142 mMol/L (136-145); Total Protein 7.6 gm/dL (5.7-8.2); Troponin I < 0.020 ng/mL (0.0-0.045); eGFR 14 See Note
[2025-01-07 21:30] LABS: Partial Thromboplastin Time 21.4 Seconds (22.0-36.0); Prothrombin Time 10.5 Seconds (9.0-12.2)
[2025-01-07 21:33] LABS: Collection Type, Urine Clean Catch
[2025-01-07] MEDS: METOCLOPRAMIDE INJ 5 MG/ML VIAL 2 ML 10 MG IVP (21:58)
[2025-01-07 22:02] LABS: Amphetamine/Methamp Scrn,U Negative (Negative); Barbiturate Screen,Urine Negative (Negative); Benzodiazepines Screen,Urine Positive (Negative); Benzoylecgonine Screen, Ur Negative (Negative); Fentanyl Screen,Urine Negative (Negative); Opiate Screen,Urine Positive (Negative); THC Screen,Urine Positive (Negative)
--- NOTE | 2025-01-07 22:07 | XR_ITS ---
Examination: CT brain head without contrast. 2-D sagittal coronal reconstructions Date and time of exam:January 08, 2000 2513 hours INDICATIONS: Headaches with history seizure 2 weeks ago CTDI: vol (mGy):45.5 DLP: (mGycm):889 Technique: Multiple CT axial sections of the brain have been obtained, 5 mm slice thickness. Contrast has not been administered. 2-D sagittal, coronal reconstructions have been obtained Low dose protocols were performed. One or more of the following dose reduction techniques were used; automated exposure control, adjustment of the mA and/or KV according to patient size, use of iterative reconstruction technique. Findings: No significant ventricular enlargement. Intra-axial or extra-axial hemorrhage density is not seen. No mass effect or midline shift Basal cisterns are not remarkable. Fourth ventricle is midline. Cranial vault intact. Impression: Negative for acute hemorrhage, mass effect or midline shift Please see the brain MRI report November 29, 2024
[2025-01-07] MEDS: ONDANSETRON INJ 2 MG/ML INJ 2 ML 4 MG IV (22:17)
[2025-01-07 22:50] LABS: Bilirubin,Urine Negative (Negative); Blood,Urine 2+ (Negative); Clarity,Urine Turbid (Clear/Hazy); Color,Urine Lt-Yellow (Lt Yel-Yel); Glucose, Urine 4+ (Negative); Ketones,Urine 1+ (Negative); Leukocyte Esterase,Urine Positive (Negative); Nitrite,Urine Negative (Negative); PH,Urine 8.5 (5.0-7.0); Protein,Urine 2+ (Neg - Trace); RBC,Urine 132 /hpf (0-3); Specific Gravity,Urine 1.011 (1.001-1.035); Squamous Epithelial Cell,Urine 4 /hpf (0-5); Urobilinogen,Urine Negative mg/dL (0.0-1.0); WBC,Urine 106 /hpf (0-5)
[2025-01-07] MEDS: SCOPOLAMINE 1 MG TDSY TOP (23:04)
--- NOTE | 2025-01-07 23:11 | PC.NURSE ---
Pt taking to CT via wheelchair
[2025-01-08] VITALS (30 sets, daily range): BP systolic 99–197; BP diastolic 69–117; PULSE 81–115; RESP 14–100; TEMP 36.2–36.6; O2SAT 96–100; BMI 24.7
--- NOTE | 2025-01-08 00:53 | PD.RESHP ---
Documentation for date of: 01/08/25 [facility] History of Present Illness Chief complaint: vomiting History of present illness: Edita Carmona is 64 yr female with PMH of hypertension, ESRD on dialysis Monday with Dr Awad, CAD status post CABG, recurrent UTIs on daily Keflex, pacemaker placement September 2024, type 2 diabetes, hypotension on midodrine, and PRES syndrome presenting to ED due to intractable nausea and vomiting that started yesterday afternoon. Patient has experienced vomiting episodes in the past. May be associated with high blood pressure as yesterday home readings around 240 systolic. Patient typically ranges systolic 90?130. She denies any recent travel, change in diet or eating out. She is unable to tolerate any food or liquids. She has history of peritoneal dialysis started 2-1/2 years ago. Post CABG, patient transitioned from PD to TDC. Patient is hoping to have kidney transplant completed this summer. Colonoscopy done last year was negative. EGD completed on previous admission in November showed some gastritis. Patient denies any headache, vision changes, abdominal pain, dysuria. States that she has been unable to experience any symptoms due to her diabetic neuropathy. PCP has started her on daily Keflex. She has history of reccurent UTIs--approximately 1 UTI per month. On last admission, patient was discharged with valsartan. Only takes occasionally as blood pressures are on usually on softer side due to her HD. Endorses taking Reglan everyday due to nausea and vomiting. In ED, blood pressure 222/151, tachycardia 112, respiratory rate 18, afebrile, saturating 98% on room air. Leukocytosis 18.6, hemoglobin 14, sodium 142, potassium 3.7, BUN 23, creatinine 3.5, GFR 14, glucose 250, negative troponins. UA positive for UTI with leukocyte esterase, 106 WBC. EKG showed sinus tachycardia rate 113, QTc 486. CT head negative for acute hemorrhage. U tox positive for THC, opioids, benzos. Was given Nephrology Dr Awad consulted for resuming hemodialysis. Patient admitted for management of intractable nausea and vomiting and UTI. PMH: As noted above PSH: Positive Abdominal Surgery (GASTRIC SLEEVE, PERITONEAL DIALYSIS PORT INSERTION), Hysterectomy and Section (X3) FamHx: Positive Family Cancer Social: Denied smoking, drug use, drinking. Meds: cephalexin 500 daily, aspirin 81 mg, atorvastatin 40 mg, Plavix 75 mg, 0.5 mg, midodrine 10 mg 3 times daily, Tradjenta, valsartan 40 Review of Systems Review of Systems Systems Reviewed: All systems reviewed, normal except as documented Exam Vital Signs Temp Pulse Resp BP Pulse Ox O2 Del Method 98.0 F 110 H 20 150/80 H 97 Room Air 01/07/25 22:23 01/07/25 22:23 01/07/25 22:23 01/07/25 22:23 01/07/25 22:23 01/07/25 22:23 Narrative Exam General: Elderly female, distress, dry heaving, cooperative HEENT: NCAT, No JVD noted. Mucosa dry. Pupils are equal and reactive to light bilaterally Cardiovascular: Normal S1 and S2. Tachycardia, regular rhythm. Respiratory: Lungs are clear to auscultation bilaterally. No wheezing or crackles heard. Abdomen: Soft, nontender, not distended, normal bowel sounds. Extensive bruising post PD removal. Skin: Warm to touch, dry, no rashes noted Musculoskeletal: No gross injuries. Able to move all 4 extremities. No pitting edema Neuro: Alert and oriented x3. No focal neuro deficits. Psych: Normal affect and mood Results: Labs 01/07/25 20:54 01/07/25 20:54 Labs: Short CBC 01/07/25 Range/Units 20:54 WBC 18.6 H (3.6-11.0) Thou/mm3 Hgb 13.9 (12.0-16.0) g/dL Hct 43.2 (36.0-46.0) % Plt Count 228 (140-440) Thou/mm3 BMP 01/07/25 20:54 Sodium 142 Potassium 3.7 Chloride 103 Carbon Dioxide 24.3 BUN 23 Creatinine 3.5 H Glucose 250 H Calcium 9.5 Cardiac Enzymes 01/07/25 Range/Units 20:54 Troponin I < 0.020 (0.0-0.045) ng/mL Liver Function 01/07/25 Range/Units 20:54 Total Bilirubin 0.4 (0.3-1.2) mg/dL AST 17 (0-34) U/L ALT 10 (10-49) U/L Alkaline Phosphatase 99 (46-116) U/L Albumin 4.6 (3.4-4.8) gm/dL Urine 01/07/25 Range/Units 21:01 Urine Color Lt-Yellow (Lt Yel-Yel) Urine Clarity Turbid A (Clear/Hazy) Urine pH 8.5 H (5.0-7.0) Ur Specific [place] 1.011 (1.001-1.035) Urine Protein 2+ A (Neg - Trace) Urine Glucose (UA) 4+ A (Negative) Quality Measures Quality Measures VTE prophylaxis Medications Home Medications and Allergies Home Medications ?Medication ?Instructions ?Recorded ?Confirmed ?Type calcitriol 0.25 mcg capsule 0.5 mcg PO .qhs 09/15/23 11/28/24 History aspirin 81 mg tablet,delayed 81 mg PO QDAY 11/28/24 11/28/24 History release (Adult Low Dose Aspirin) atorvastatin 40 mg tablet 40 mg PO QDAY 11/28/24 11/28/24 History clopidogrel 75 mg tablet 75 mg PO QDAY 11/28/24 11/28/24 History duloxetine 30 mg capsule,delayed 30 mg PO BID 11/28/24 11/28/24 History release (Cymbalta) linagliptin 5 mg tablet (Tradjenta) 5 mg PO QDAY 11/28/24 11/28/24 History metoclopramide HCl 5 mg tablet 5 mg PO PRN PRN nausea 11/28/24 11/28/24 History (Reglan) midodrine 10 mg tablet 10 mg PO TID PRN SBP under 130 11/28/24 11/28/24 History ascorbate calcium (vitamin C) 500 1 g PO QDAY 12/01/24 12/01/24 History mg tablet vitamin B complex-vitamin C-folic 1 tab PO QDAY 12/01/24 12/01/24 History acid 0.8 mg tablet Allergies Allergy/AdvReac Type Severity Reaction Status Date / Time No Known Allergies Allergy Verified 01/07/25 20:14 Visit Medications Heparin Sodium (Porcine) (Heparin Sod Inj 5000 Unit/Ml Vial) 5,000 unit SC Q8HR ALEX Stop: 01/22/25 00:59 Sodium Chloride (Ns) 1,000 mls @ 100 mls/hr IV .Q10H ALEX Stop: 01/08/25 05:44 Ceftriaxone Sodium/Dextrose (Rocephin/D5w 1gm Iv Premix) 1 gm in 50 mls @ 100 mls/hr IV QDAY ALEX Stop: 01/15/25 00:50 Metoclopramide HCl (Metoclopramide 5 Mg Tablet) 10 mg PO Q6H PRN PRN Reason: NAUSEA OR VOMITING Stop: 02/07/25 00:43 Ondansetron HCl (Ondansetron Inj 2 Mg/Ml Inj 2 Ml) 4 mg IV Q6H PRN; Protocol PRN Reason: NAUSEA OR VOMITING Stop: 02/07/25 00:43 Sennosides (Senna Tablet) 1 tab PO QDAY PRN; Protocol PRN Reason: constipation Stop: 02/07/25 00:43 Discontinued Medications Hydralazine HCl (Hydralazine Inj 20 Mg/Ml Vial) 10 mg IV X1 ONE Stop: 01/07/25 20:17 Last Admin: 01/07/25 20:28 Dose: 10 mg Hydralazine HCl (Hydralazine Inj 20 Mg/Ml Vial) 10 mg IV X1 ONE Stop: 01/07/25 20:50 Last Admin: 01/07/25 21:58 Dose: 10 mg Metoclopramide HCl (Metoclopramide Inj 5 Mg/Ml Vial 2 Ml) 10 mg IVP X1 ONE; Protocol Stop: 01/07/25 21:46 Last Admin: 01/07/25 21:58 Dose: 10 mg Ondansetron HCl (Ondansetron Inj 2 Mg/Ml Inj 2 Ml) 4 mg IV X1 ONE; Protocol Stop: 01/07/25 22:08 Last Admin: 01/07/25 22:17 Dose: 4 mg Palonosetron (Palonosetron Inj 0.25 Mg/5 Ml Vial) 0.25 mg IV X1 ONE Stop: 01/07/25 22:43 Last Admin: 01/07/25 23:53 Dose: Not Given Prochlorperazine Edisylate (Prochlorperazine Inj 5 Mg/Ml Vial 2 Ml) 10 mg IV X1 ONE; Protocol Stop: 01/07/25 20:17 Last Admin: 01/07/25 20:27 Dose: 10 mg Scopolamine (Scopolamine 1 Mg Tdsy) 1 mg TOP X1 ONE Stop: 01/07/25 22:41 Last Admin: 01/07/25 23:04 Dose: 1 mg Assessment & Plan Plan Edita Carmona is 64 yr female with PMH of hypertension, ESRD on dialysis [place] Wednesday [place] with Dr Awad, CAD status post CABG, recurrent UTIs on daily Keflex, pacemaker placement September 2024, type 2 diabetes, hypotension on midodrine, and PRES syndrome presenting to ED due to intractable nausea and vomiting that started yesterday afternoon. Nephrology Dr Awad consulted for resuming hemodialysis. Patient admitted for management of intractable nausea and vomiting and UTI. #Hypertensive Urgency BP 222/151 on admission, tachycardic 112. No evidence of endorgan damage. She was alert and oriented x 3. Patient was given hydralazine 10 mg IV x 2 while in ED which brought blood pressure down to 170/105. She was discharged with valsartan on last admission. States that she does not take it every day as typically blood pressure runs on the lower side and uses midodrine. -hold midodrine - Goal BP 160/100 with avoiding rapid reduction -Monitor BP with hydralazine 10 mg q4hr PRN # Intractable nausea and vomiting DDx: Most likely cyclical vomiting from THC use vs diabetic gastroparesis vs viral gastritis. Experiencing intractable nausea and vomiting since yesterday afternoon. Patient denied use of marijuana at bedside however U tox positive for THC, opioids, benzos. EGD completed last admission showed gastritis. Was given prochlorperazine 10 mg, metoclopramide 10 mg, scopolamine patch, palonosetron 0.25mg in ED. -continue above agents as needed -stop smoking THC - Advance diet as tolerated - Maintenance fluids #UTI Patient denies any dysuria but has a history of recurrent UTIs approximately 1 month. Was started on Keflex 500 mg daily by PCP. Leukocytosis 18. UA positive for UTI with leukocyte esterase, 106 WBC - Urine culture pending -IV ceftriaxone 1 g daily #Hx ESRD on HD MWF Patient follows Dr Awad. Was on peritoneal dialysis and transition to dialysis via TDC. Patient is hoping for kidney transplant this summer. -Nephrology Dr. Ortiz consulted for resuming hemodialysis -renallu Dose medications # Tux-nvxvnms-hnyvbnmnb type 2 diabetes, controlled On admission initial glucose 250. Last A1c 4.6 on 11/29/24. Patient takes Tradjenta for diabetes at home. 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 Chirinos. Esperanza Murphy, PGY-1 Attending Provider Attestation/Addendum 75-navx-[id number]-year-old female with coronary artery disease, status post CABG, end-stage renal disease on dialysis, press syndrome admitted for nausea vomiting headache uncontrolled blood pressure. CT scan of the brain without contrast negative for hemorrhage. Patient's blood pressure was controlled in the ER. She is still symptomatic with nausea and vomiting. She has no arm and leg weakness no numbness. She did not have seizure. Treatment plan as above.
[2025-01-08] MEDS: HEPARIN SOD INJ 5000 UNIT/ML VIAL SC ×2 (01:24→05:01)
[2025-01-08] MEDS: SODIUM CHLORIDE 0.9% 500 ML 500 ML 100 ML IV (02:14)
[2025-01-08] MEDS: LABETALOL INJ 5 MG/ML VIAL 20 ML 20 MG IVP (03:09)
--- NOTE | 2025-01-08 03:43 | PC.NURSE ---
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
[2025-01-08] MEDS: METOCLOPRAMIDE INJ 5 MG/ML VIAL 2 ML IVP ×4 (04:45→23:58)
[2025-01-08 05:59] LABS: Basophils % (Auto) 0 % (0-2.5); Eosinophils % (Auto) 0 % (0-10); Hematocrit 41.7 % (36.0-46.0); Hemoglobin 13.4 g/dL (12.0-16.0); Immature Granulocytes % (Auto) 1 % (0-0); Immature Granulocytes Auto 0.15 Thou/mm3 (0.00-0.00); Lymphocytes # (Auto) 0.9 Thou/mm3 (1.0-4.8); Lymphocytes % (Auto) 5 % (10-50); Mean Corpuscular HGB Conc 32.1 g/dl (31.0-37.0); Mean Corpuscular Hemoglobin 30.1 pg (25.0-35.0); Mean Corpuscular Volume 94 fL (80-100); Monocytes # (Auto) 0.2 Thou/mm3 (0.0-0.8); Monocytes % (Auto) 1 % (0-12); Neutrophils # (Auto) 17.4 Thou/mm3 (1.8-7.7); Neutrophils % (Auto) 93 % (37-80); Nucleated Red Blood Cell % 0 /100 WBC (0); Platelet Count 243 Thou/mm3 (140-440); RDW Standard Deviation 56.3 fL (36.4-46.3); Red Blood Count 4.45 Miln/mm3 (4.00-5.20); White Blood Count 18.7 Thou/mm3 (3.6-11.0)
[2025-01-08 06:22] LABS: Alanine Aminotransferase 10 U/L (10-49); Albumin, Serum 4.6 gm/dL (3.4-4.8); Albumin/Globulin Ratio 1.5 (1.2-2.2); Alkaline Phosphatase 96 U/L (46-116); Anion Gap 16 (7-16); Aspartate Amino Transferase 15 U/L (0-34); BUN/Creatinine Ratio 8 Ratio (12-20); Bilirubin,Total 0.4 mg/dL (0.3-1.2); Blood Urea Nitrogen 29 mg/dL (9-23); Calcium 9.6 mg/dL (8.3-10.6); Calcium (Corrected) 9.6 mg/dL (8.5-10.1); Carbon Dioxide 25.3 mMol/L (20.0-31.0); Chloride 102 mMol/L (98-107); Creatinine (Component) 3.8 mg/dL (0.6-1.3); Glucose 214 mg/dL (74-106); Osmolality,Calculated 296 (275-295); Phosphorous 4.7 mg/dL (2.4-5.1); Sodium 143 mMol/L (136-145); Total Protein 7.6 gm/dL (5.7-8.2); eGFR 13 See Note
[2025-01-08] MEDS: ONDANSETRON INJ 2 MG/ML INJ 2 ML 4 MG IV (07:25)
[2025-01-08] MEDS: INSULIN LISPRO (AdmeLOG) 1 UNIT/0.01 ML UNIT SC ×2 (07:47→17:01)
[2025-01-08] MEDS: cefTRIAXone/D5w 1gm IV premix 1 GM/50 ML BAG IV (08:01)
--- NOTE | 2025-01-08 09:17 | ESPR_ITS ---
<Statement entered by Radha Ashford MD - 01/08/25 16:01> Patient was seen and examined at bedside. Blood pressure today was at 160 she is on IV labetalol as needed every 4 hours 10 mg. On evaluation at bedside patient we noticed that the patient has not had a bowel movement in 3 days which was her baseline, however because of the severity of the vomiting, and the bruises that were found on examination and to rule out any SBO. We decided to do abdominal CT scan which showed hematoma of 6.2 x 3 cm on the abdominal wall.?We stopped heparin subcu for now. I will put the patient on SCDs. Also was noticed to have hiccups, which also supported the fact the patient new to hemodialysis on most likely with his dialysis related vomiting. Patient reported that she has been taking Reglan at home regularly. Because the patient was unable to eat we will put the patient on IV fluids at this time normal saline 70 mL/h with strict in and out. Today patient underwent hemodialysis as she got 2 L of fluid removed. Because the patient has history of coronary artery disease with CABG will decide tomorrow to resume the patient aspirin per rectal as she continues to have the vomiting. Will continue to monitor closely at this time. - Patient's plan and care discussed with my attending, Dr. Freda Ashford MD Internal Medicine PGY-2 Documentation for date of: 01/08/25 Subjective Subjective Interval history: Patient was seen and examined at dialysis unit this a.m. No acute exents overnight. Patient not tolerating diet, adequate urine output and mentation is at baseline. Patient still complains of nausea and has intermittent retching. Endorses passing flatus and last bowel movement was 3 days ago, this is reported as her normal. Abdomen CT without contrast ordered Hemodialysis today with a goal of 2L ultrafiltration. Exam Vital Signs Temp Pulse Resp BP Pulse Ox O2 Del Method 97.8 F 91 18 126/84 99 Room Air 01/08/25 08:29 01/08/25 09:15 01/08/25 08:29 01/08/25 09:15 01/08/25 08:29 01/08/25 08:00 Narrative Exam Constitutional Alert, oriented x 3 and mild distress. Elderly female HEENT Vision grossly intact. Patent nares. Trachea midline Respiratory Chest normal on inspection and clear auscultation bilaterally. Right tunneled dialysis catheter noted. Exit site clean Cardiovascular S1 and S2 audible, RRR. No murmurs carotid bruit. No gross JVD. Abdominal Obese, large ecchymosis right lower quadrant, firm to palpation, healed surgical scar noted. Bowel sounds present Genitourinary No bladder tenderness, no flank pain. Normal to palpation Musculoskeletal Extremities tone within normal limits. No LE edema. Neurological CN II - XII grossly intact. Extremity motor and sensation grossly intact. Skin Warm, dry and intact. No apparent lesions. Psychiatric Patient has good affect, is cooperative Objective Labs 01/09/25 05:30 01/09/25 05:30 Labs: Laboratory Results - last 24 hr 01/07/25 01/07/25 01/08/25 20:54 21:01 05:38 WBC 18.6 H 18.7 H RBC 4.63 4.45 Hgb 13.9 13.4 Hct 43.2 41.7 MCV 93 94 MCH 30.0 30.1 MCHC 32.2 32.1 RDW Std Deviation 55.6 H 56.3 H Plt Count 228 243 Neut % (Auto) 92 H 93 H Lymph % (Auto) 5 L 5 L [place] % (Auto) 2 1 Eos % (Auto) 0 0 Baso % (Auto) 0 0 Neut # (Auto) 17.1 H 17.4 H Lymph # (Auto) 1.0 [address] [place] # (Auto) 0.4 0.2 Eos # (Auto) 0.0 0.0 Baso # (Auto) 0.1 0.0 Immature Gran # (Auto) 0.15 H 0.15 H Absolute Nucleated RBC 0.00 0.00 Immature Gran % 1 H 1 H Nucleated RBC % 0 0 PT 10.5 INR 1.0 APTT 21.4 L Sodium 142 143 Potassium 3.7 4.0 Chloride 103 102 Carbon Dioxide 24.3 25.3 Anion Gap 15 16 BUN 23 29 H Creatinine 3.5 H 3.8 H Estim Creat Clear Calc 16.6 L 14.0 L eGFR 14 L* 13 L* BUN/Creatinine Ratio 7 L 8 L Glucose 250 H 214 H Calculated Osmolality 294 296 H Calcium 9.5 9.6 Corrected Calcium 9.5 9.6 Phosphorus 4.7 Magnesium 2.0 2.0 Total Bilirubin 0.4 0.4 AST 17 15 ALT 10 10 Alkaline Phosphatase 99 96 Lactate Dehydrogenase 246 Troponin I < 0.020 B-Natriuretic Peptide 144 H Total Protein 7.6 7.6 Albumin 4.6 4.6 Globulin 3.0 3.0 Albumin/Globulin Ratio 1.5 1.5 Ur Collection Type Clean Catch Urine Color Lt-Yellow Urine Clarity Turbid A Urine pH 8.5 H Ur Specific [place] 1.011 Urine Protein 2+ A Urine Glucose (UA) 4+ A Urine Ketones 1+ A Urine Blood 2+ A Urine Nitrite Negative Urine Bilirubin Negative Urine Urobilinogen (Auto) Negative Ur Leukocyte Esterase Positive Urine RBC 132 H Urine WBC 106 H Ur Squamous Epith Cells 4 Urine Bacteria None Urine Opiates Screen Positive A Urine Fentanyl Screen Negative Ur Barbiturates Screen Negative U Amphetamin/Meth Scrn Negative U Benzodiazepines Scrn Positive A U Cocaine Metab Screen Negative U Marijuana (THC) Screen Positive A Quality Measures Quality Measures VTE prophylaxis Assessment & Plan Assessment Current Active Medications: Generic Name Dose Route Start Last Admin Trade Name Freq PRN Reason Stop Dose Admin Dextrose 25 ml 01/08/25 01:54 Dextrose 50%-Water Inj 50 Ml Syringe IV 02/07/25 01:53 Q15MIN PRN BG 50-70 responsive npo pt Dextrose 50 ml 01/08/25 01:54 Dextrose 50%-Water Inj 50 Ml Syringe IV 02/07/25 01:53 Q15MIN PRN BG <50 OR BG <70 & pt unresponsive Glucagon 1 mg 01/08/25 01:54 Glucagon Inj 1 Mg Vial IM Q15MIN PRN BG <70, and no IV access Heparin Sodium (Porcine) 5,000 unit 01/08/25 01:00 01/08/25 05:01 Heparin Sod Inj 5000 Unit/Ml Vial SC 01/22/25 00:59 5,000 unit Q8HR ALEX Administration Heparin Sodium (Porcine) 3,300 unit 01/08/25 08:55 Heparin Sod Inj 1000 Unit/Ml Vial 10 Ml INDWELLCAT 01/22/25 08:54 X1 PRN DIALYSIS Ceftriaxone Sodium/Dextrose 1 gm in 50 mls @ 100 mls/hr 01/08/25 09:00 01/08/25 08:01 Rocephin/D5w 1gm Iv Premix IV 01/15/25 08:59 100 mls/hr QDAY ALEX Administration Insulin Human Lispro 0 unit 01/08/25 07:30 01/08/25 07:47 Insulin Lispro (Admelog) 1 Unit/0.01 Ml Unit SC 02/07/25 07:29 1 unit AC ALEX Administration Protocol Labetalol HCl 10 mg 01/08/25 08:24 Labetalol Inj 5 Mg/Ml Vial 20 Ml IVP 02/07/25 02:44 Q4HR PRN SBP > 180 Metoclopramide HCl 5 mg 01/08/25 04:32 01/08/25 04:45 Metoclopramide Inj 5 Mg/Ml Vial 2 Ml IVP 02/07/25 05:59 5 mg Q6HR PRN Administration vomiting Protocol Ondansetron HCl 4 mg 01/08/25 00:44 01/08/25 07:25 Ondansetron Inj 2 Mg/Ml Inj 2 Ml IV 02/07/25 00:43 4 mg Q6H PRN Administration NAUSEA OR VOMITING Protocol Sennosides 1 tab 01/08/25 00:44 Senna Tablet PO 02/07/25 00:43 QDAY PRN constipation Protocol Plan Edita Carmona is 64 yr female with PMH of hypertension, ESRD on dialysis Monday with Dr Awad, CAD status post CABG, recurrent UTIs on daily Keflex, pacemaker placement September 2024, type 2 diabetes, hypotension on midodrine, and PRES syndrome presenting to ED due to intractable nausea and vomiting that started yesterday afternoon. Nephrology Dr Awad consulted for resuming hemodialysis. Patient admitted for management of intractable nausea and vomiting and UTI. Hypertensive Urgency - resolved BP 222/151 on admission, tachycardic 112. No evidence of endorgan damage. She was alert and oriented x 3. Patient was given hydralazine 10 mg IV x 2 while in ED which brought blood pressure down to 170/105. She was discharged with valsartan on last admission. States that she does not take it every day as typically blood pressure runs on the lower side and uses midodrine. Plan: ? Labetalol 10 Mg IV every 4 hourly for SBP >180 ? Blood pressure reduced by 25% in the first 24 hours Intractable nausea and vomiting DDx: Most likely cyclical vomiting from THC use vs diabetic gastroparesis vs viral gastritis. Experiencing intractable nausea and vomiting since yesterday afternoon. Patient denied use of marijuana at bedside however U tox positive for THC, opioids, benzos. EGD completed last admission showed gastritis. Was given prochlorperazine 10 mg, metoclopramide 10 mg, scopolamine patch, palonosetron 0.25mg in ED. Plan: ? Continue metoclopramide 5 Mg IV every 6 hourly as needed ? Increased ondansetron to 8 Mg IV Q4 hourly as needed SBO ruled out Abdominal wall hematoma Abdomen/Pelvis CT completed on 01/08/2025 findings include: Small retrocardiac gastric hernia. Soft tissue mass at prior entrance site of hemodialysis catheter, consistent with hematoma, 6.2 x 3.7 cm. Mild thickening of right anterior pelvic wall. Negative for bowel obstruction. Plan: ?Monitor hematoma as outpatient. CAD s/p CABG Patient takes aspirin 81 mg and Plavix 75 mg daily Plan: ? Will resume home antiplatelets once vomiting improves. Recurrent UTIs Patient denies any dysuria but has a history of recurrent UTIs approximately 1 month. Was started on Keflex 500 mg daily by PCP. Leukocytosis 18. UA positive for UTI with leukocyte esterase, 106 WBC Plan: ? Pending urine culture ? Continue ceftriaxone 1 g IV daily ESRD on HD MWF via right tunneled dialysis catheter Patient follows Dr Awad. Was on peritoneal dialysis and transition to dialysis via TDC. Patient is hoping for kidney transplant this summer. Patient had hemodialysis today with 2L ultrafiltration Plan: ? Continue hemodialysis as per nephrology recommendations ? Renally dose medication ? Avoid nephrotoxic agents ? Nephrology, Dr. Castorena consulted and closely following. Appreciate recommendations Odm-antlkxv-[id number] type 2 diabetes, controlled On admission initial glucose 250. Last A1c 4.6 on 11/29/24. Patient takes Tradjenta for diabetes at home. Plan: -Bedside blood glucose checks ACHS -Insulin lispro sliding scale -Carb consistent low diet #Hx PRES syndrome -follow up outpatient -CT head negative for hemorrhage #Hx cannabis use Patient extensively counseled on adverse effects of cannabis use and possible contribution to her vomiting. Advised patient to completely discontinue. Patient endorses understanding. Health maintenance: Disposition: IV antiemetics. Hemodialysis Diet: Clear liquid Lines: pIVs GI Prophylaxis: Pantoprazole Thrombo Prophylaxis: SCDs Code status: FULL CODE Plan of care discussed with Attending Dr. Barab and PGY2 Dr. Makeda Kaur MD PGY 1 Disclaimer: This note was dictated by speech recognition. Minor errors in crystal machining coordinator may be present due to voice recognition software. Attending Provider Attestation/Addendum I have examined the patient, reviewed labs and imaging findings, discussed the case with the resident(s), and reviewed entered orders. I agree with the plan of care as outlined in this note, with these additional summaries/recommendations: Patient seen at bedside after hemodialysis. She is still endorsing intractable nausea and vomiting and we will continue antiemetics. Vomiting most likely secondary to cyclic vomiting syndrome from THC. Patient also reports she has not had a bowel movement in 3 days we will obtain CT scan of abdomen to rule out SBO. Patient's hypertensive urgency has significantly improved. Discontinue midodrine. Patient unable to tolerate oral antihypertensive and will continue with IV for now. Nephrology following for inpatient hemodialysis. Continue insulin sliding scale for diabetes mellitus type 2. Will resume aspirin when able. Repeat hematology and chemistry panel in AM. Dr. Freda MD
--- NOTE | 2025-01-08 10:11 | XR_ITS ---
Examination: CT abdomen and pelvis without contrast. Coronal 3-D reconstructions. Sagittal 2-D reconstructions. Date and time of exam:January 08, 2025 1225 hours INDICATIONS: Intractable vomiting today CTDI: vol (mGy): 7.75 DLP: (mGycm): 445 Technique: Axial images of the abdomen have been obtained, 3 mm slice thickness Intravenous contrast material has not been administered. Low dose protocols were performed. One or more of the following dose reduction techniques were used; automated exposure control, adjustment of the mA and/or KV according to patient size, use of iterative reconstruction technique. Findings: Comparison October 02, 2024 Small retrocardiac gastric hernia No focal liver or splenic lesions Absent gallbladder No pancreatic mass Bilateral 1 to 4 mm renal calculi Soft tissue mass at the prior entrance site of the hemodialysis catheter, consistent with hematoma, 6.2 x 3.7 cm Mild thickening of the right anterior pelvic wall, 28 mm, image 150 No bowel obstruction Urinary bladder intact IMPRESSION: Hematoma in the right lower abdominal wall, 6.2 x 3.7 cm
[2025-01-08] MEDS: HEPARIN SOD INJ 1000 UNIT/ML VIAL 10 ML 3300 UNIT INDWELLCAT (10:16)
--- NOTE | 2025-01-08 12:11 | PC.NURSE ---
Attempting to complete med rec, received incomplete/handwritten list from family
[2025-01-08] MEDS: ONDANSETRON INJ 2 MG/ML INJ 2 ML 8 MG IV ×2 (14:20→20:13)
[2025-01-08] MEDS: SODIUM CHLORIDE 0.9% 500 ML 500 ML 70 ML IV (14:24)
[2025-01-08] MEDS: PANTOPRAZOLE INJ 40 MG VIAL IVP (15:40)
--- NOTE | 2025-01-08 16:56 | PC.SS ---
VENDING MACHINE HOST/HOSTESS conducted bedside contact with the patient conduct initial assessment and to discuss discharge planning.? Patient confirmed demographic information.? Patient resides at home with spouse, Supa Carmona.? Patient does not utilize any form of DME to assist with ambulation.? Patient does not utilize home oxygen.? Patient describes the ability to complete ADL?s independently.? Patient identified daughter, Carmen Angulo ; as medical surrogate decision maker.? Patient?s PCP is Catalina Brewster.? Patient utilizes [facility] for medication services.? Discharge plan is for the patient to return home.? Family will provide transportation on behalf of the patient.? No further discharge needs identified by the patient.? No further intervention required at this time, social welfare clerk will be available to address any further concerns.? Next of Kin: Carmen Angulo D/C Plan: Home
[2025-01-08] MEDS: SENNA TABLET 1 TAB PO (17:01)
--- NOTE | 2025-01-08 17:30 | PC.PT ---
PT brooklynn received. Patient was approached this afternoon. As per patient, she doesnt need PT, She is already ambulatory. She said said she already ambulating to the restroom. Will cancel PT evaluation secondary to patient is at her PLOF.
[2025-01-08] MEDS: LABETALOL INJ 5 MG/ML VIAL 20 ML 10 MG IVP (23:57)
[2025-01-09] VITALS (11 sets, daily range): BP systolic 145–191; BP diastolic 96–117; PULSE 72–110; RESP 12–98; TEMP 36.4–37.8; O2SAT 98–100; BMI 24.2; BMI 24.0
[2025-01-09] MEDS: ONDANSETRON INJ 2 MG/ML INJ 2 ML 8 MG IV ×5 (03:02→21:05)
[2025-01-09] MEDS: METOCLOPRAMIDE INJ 5 MG/ML VIAL 2 ML IVP ×2 (06:12→12:35)
[2025-01-09 06:17] LABS: Basophils # (Auto) 0.1 Thou/mm3 (0.0-0.2); Basophils % (Auto) 0 % (0-2.5); Eosinophils % (Auto) 0 % (0-10); Hematocrit 43.5 % (36.0-46.0); Hemoglobin 13.8 g/dL (12.0-16.0); Immature Granulocytes % (Auto) 1 % (0-0); Immature Granulocytes Auto 0.16 Thou/mm3 (0.00-0.00); Lymphocytes # (Auto) 1.5 Thou/mm3 (1.0-4.8); Lymphocytes % (Auto) 7 % (10-50); Mean Corpuscular HGB Conc 31.7 g/dl (31.0-37.0); Mean Corpuscular Hemoglobin 29.9 pg (25.0-35.0); Mean Corpuscular Volume 94 fL (80-100); Monocytes % (Auto) 5 % (0-12); Neutrophils # (Auto) 19.2 Thou/mm3 (1.8-7.7); Neutrophils % (Auto) 88 % (37-80); Nucleated Red Blood Cell % 0 /100 WBC (0); Platelet Count 274 Thou/mm3 (140-440); RDW Standard Deviation 57.4 fL (36.4-46.3); Red Blood Count 4.62 Miln/mm3 (4.00-5.20); White Blood Count 21.9 Thou/mm3 (3.6-11.0)
[2025-01-09 06:37] LABS: Alanine Aminotransferase 10 U/L (10-49); Albumin, Serum 4.7 gm/dL (3.4-4.8); Albumin/Globulin Ratio 1.5 (1.2-2.2); Alkaline Phosphatase 96 U/L (46-116); Anion Gap 15 (7-16); Aspartate Amino Transferase 16 U/L (0-34); BUN/Creatinine Ratio 7 Ratio (12-20); Bilirubin,Total 0.5 mg/dL (0.3-1.2); Blood Urea Nitrogen 24 mg/dL (9-23); Calcium 9.8 mg/dL (8.3-10.6); Calcium (Corrected) 9.8 mg/dL (8.5-10.1); Chloride 98 mMol/L (98-107); Creatinine (Component) 3.4 mg/dL (0.6-1.3); Estimated Creatinine Clearance 15.6 mL/min (>60); Globulin 3.1 gm/dL (2.3-3.5); Glucose 175 mg/dL (74-106); Osmolality,Calculated 285 (275-295); Sodium 139 mMol/L (136-145); Total Protein 7.8 gm/dL (5.7-8.2); eGFR 14 See Note
[2025-01-09] MEDS: LABETALOL INJ 5 MG/ML VIAL 20 ML 10 MG IVP ×3 (07:23→18:40)
[2025-01-09] MEDS: INSULIN LISPRO (AdmeLOG) 1 UNIT/0.01 ML UNIT SC ×2 (07:51→16:54)
[2025-01-09] MEDS: cefTRIAXone/D5w 1gm IV premix 1 GM/50 ML BAG IV (08:25)
[2025-01-09] MEDS: PANTOPRAZOLE INJ 40 MG VIAL IVP (08:25)
--- NOTE | 2025-01-09 13:13 | PC.SS ---
Update: Patient continues to vomit. D/C upon diet advancement and ceasing of vomiting.
--- NOTE | 2025-01-09 15:00 | PC.SS ---
Rounding Note: Plan is to advance patient's diet. IV antibiotics in place. WBC are elevated.
--- NOTE | 2025-01-09 15:15 | ESPR_ITS ---
Documentation for date of: 01/09/25 Subjective Subjective Interval history: Patient was seen and examined at bedside. Patient denied vomiting this morning and she is only feeling nauseous. She tried to eat today but she stopped because of the nausea. Her blood pressure today was 195/117, she was given labetalol IV which helped decrease her blood pressure. Will increase the frequency of labetalol to 10 mg every 2 hours. Today we noticed also that her WBC uptrending from 18-21, her urine analysis showed bacteriuria and patient reported that she has frequency for that reason we will keep the patient on ceftriaxone at this time. Will also increase her metoclopramide from 5 mg every 6 hours as needed to 10 mg every 6 hours as needed. Today we will also try to give the patient aspirin per mouth to see if she can tolerate. Exam Vital Signs Temp Pulse Resp BP Pulse Ox O2 Del Method 97.6 F 99 18 153/99 H 100 Room Air 01/09/25 12:00 01/09/25 12:00 01/09/25 12:00 01/09/25 12:00 01/09/25 12:00 01/09/25 12:00 Narrative Exam GEN: AOx3, able to speak full sentences HEENT: NC/AC, oral mucosa moist, neck supple CVS: RRR, S1-S2 present, no murmurs appreciated RESP: CTAB GI: soft, distended, bruises, mild diffuse tenderness, surgical scar healing. Non tender, NBS MSK: able to move all 4 limbs, no lower extremity edema SKIN: warm and dry CUT LACE MACHINE OPERATOR: CN II-XII and Sensation grossly intact. Objective Labs 01/10/25 04:25 01/10/25 04:25 Labs: Laboratory Results - last 24 hr 01/09/25 05:30 WBC 21.9 H RBC 4.62 Hgb 13.8 Hct 43.5 MCV 94 MCH 29.9 MCHC 31.7 RDW Std Deviation 57.4 H Plt Count 274 D Neut % (Auto) 88 H Lymph % (Auto) 7 L Glynn % (Auto) 5 Eos % (Auto) 0 Baso % (Auto) 0 Neut # (Auto) 19.2 H Lymph # (Auto) 1.5 Glynn # (Auto) 1.0 H Eos # (Auto) 0.0 Baso # (Auto) 0.1 Immature Gran # (Auto) 0.16 H Absolute Nucleated RBC 0.00 Immature Gran % 1 H Nucleated RBC % 0 Sodium 139 Potassium 4.0 Chloride 98 Carbon Dioxide 26.0 Anion Gap 15 BUN 24 H Creatinine 3.4 H Estim Creat Clear Calc 15.6 L eGFR 14 L* BUN/Creatinine Ratio 7 L Glucose 175 H Calculated Osmolality 285 Calcium 9.8 Corrected Calcium 9.8 Total Bilirubin 0.5 AST 16 ALT 10 Alkaline Phosphatase 96 Total Protein 7.8 Albumin 4.7 Globulin 3.1 Albumin/Globulin Ratio 1.5 Quality Measures Quality Measures VTE prophylaxis Assessment & Plan Assessment Current Active Medications: Generic Name Dose Route Start Last Admin Trade Name Freq PRN Reason Stop Dose Admin Aspirin 81 mg 01/09/25 12:00 01/09/25 12:31 Aspirin Ec 81 Mg Tabec PO 02/08/25 11:59 Not Given QDAY ALEX Dextrose 25 ml 01/08/25 01:54 Dextrose 50%-Water Inj 50 Ml Syringe IV 02/07/25 01:53 Q15MIN PRN BG 50-70 responsive npo pt Dextrose 50 ml 01/08/25 01:54 Dextrose 50%-Water Inj 50 Ml Syringe IV 02/07/25 01:53 Q15MIN PRN BG <50 OR BG <70 & pt unresponsive Glucagon 1 mg 01/08/25 01:54 Glucagon Inj 1 Mg Vial IM Q15MIN PRN BG <70, and no IV access Heparin Sodium (Porcine) 5,000 unit 01/08/25 01:00 01/08/25 05:01 Heparin Sod Inj 5000 Unit/Ml Vial SC 01/22/25 00:59 5,000 unit Q8HR ALEX Administration Heparin Sodium (Porcine) 3,300 unit 01/08/25 08:55 01/08/25 10:16 Heparin Sod Inj 1000 Unit/Ml Vial 10 Ml INDWELLCAT 01/22/25 08:54 3,300 unit X1 PRN Administration DIALYSIS Ceftriaxone Sodium/Dextrose 1 gm in 50 mls @ 100 mls/hr 01/08/25 09:00 01/09/25 08:25 Rocephin/D5w 1gm Iv Premix IV 01/15/25 08:59 100 mls/hr QDAY ALEX Administration Insulin Human Lispro 0 unit 01/08/25 07:30 01/09/25 11:39 Insulin Lispro (Admelog) 1 Unit/0.01 Ml Unit SC 02/07/25 07:29 Not Given AC ALEX Protocol Labetalol HCl 10 mg 01/09/25 08:03 Labetalol Inj 5 Mg/Ml Vial 20 Ml IVP 02/07/25 08:23 Q2H PRN SBP > 180 Metoclopramide HCl 5 mg 01/08/25 04:32 01/09/25 12:35 Metoclopramide Inj 5 Mg/Ml Vial 2 Ml IVP 02/07/25 05:59 5 mg Q6HR PRN Administration vomiting Protocol Ondansetron HCl 8 mg 01/08/25 09:38 01/09/25 11:33 Ondansetron Inj 2 Mg/Ml Inj 2 Ml IV 02/07/25 00:43 8 mg Q4HR PRN Administration NAUSEA OR VOMITING Protocol Pantoprazole Sodium 40 mg 01/08/25 15:45 01/09/25 08:25 Pantoprazole Inj 40 Mg Vial IVP 02/07/25 15:44 40 mg QDAY ALEX Administration Sennosides 1 tab 01/08/25 00:44 01/08/25 17:01 Senna Tablet PO 02/07/25 00:43 1 tab QDAY PRN Administration constipation Protocol Plan Summary: Edita Carmona is 64 yr female with PMH of hypertension, ESRD on dialysis Monday with Dr Awad, CAD status post CABG, recurrent UTIs on daily Keflex, pacemaker placement September 2024, type 2 diabetes, hypotension on midodrine, and PRES syndrome presenting to ED due to intractable nausea and vomiting that started yesterday afternoon. Nephrology Dr Awad consulted for resuming hemodialysis. Patient admitted for management of intractable nausea and vomiting and UTI. Hypertensive Urgency -improving BP 222/151 on admission, tachycardic 112. No evidence of endorgan damage. She was alert and oriented x 3. Patient was given hydralazine 10 mg IV x 2 while in ED which brought blood pressure down to 170/105. She was discharged with valsartan on last admission. States that she does not take it every day as typically blood pressure runs on the lower side and uses midodrine. Plan: ? Increase labetalol 10 Mg IV every 2 hourly for SBP >180 ?Keep acting blood pressure, will resume oral antihypertensive medication as soon as patient tolerate feeding. Intractable nausea and vomiting DDx: Most likely cyclical vomiting from THC use vs diabetic gastroparesis vs viral gastritis. Experiencing intractable nausea and vomiting since yesterday afternoon. Patient denied use of marijuana at bedside however U tox positive for THC, opioids, benzos. EGD completed last admission showed gastritis. Was given prochlorperazine 10 mg, metoclopramide 10 mg, scopolamine patch, palonosetron 0.25mg in ED. 01/09/2025, patient reported no vomiting since this morning, she reported mild improvement of her symptoms. Plan: ? Increase metoclopramide 10 Mg IV every 6 hourly as needed ? Continue ondansetron to 8 Mg IV Q4 hourly as needed SBO ruled out Abdominal wall hematoma Abdomen/Pelvis CT completed on 01/08/2025 findings include: Small retrocardiac gastric hernia. Soft tissue mass at prior entrance site of hemodialysis catheter, consistent with hematoma, 6.2 x 3.7 cm. Mild thickening of right anterior pelvic wall. Negative for bowel obstruction. Plan: ?Monitor hematoma as outpatient. CAD s/p CABG Patient takes aspirin 81 mg and Plavix 75 mg daily Plan: ? Will resume aspirin per rectum 150 mg p.o. daily as maintenance. The symptom will keep monitoring her hematoma size at there is an indication. ? Will resume home antiplatelets once vomiting improves. Recurrent UTIs Patient denies any dysuria but has a history of recurrent UTIs approximately 1 month. Was started on Keflex 500 mg daily by PCP. Leukocytosis 18. UA positive for UTI with leukocyte esterase, 106 WBC Plan: ? Continue ceftriaxone 1 g IV daily ESRD on HD MWF via right tunneled dialysis catheter Patient follows Dr Awad. Was on peritoneal dialysis and transition to dialysis via TDC. Patient is hoping for kidney transplant this summer. Patient had hemodialysis today with 2L ultrafiltration Plan: ? Continue hemodialysis as per nephrology recommendations ? Renally dose medication ? Avoid nephrotoxic agents ? Nephrology, Dr. Castorena consulted and closely following. Appreciate recommendations Jju-[id number] type 2 diabetes, controlled On admission initial glucose 250. Last A1c 4.6 on 11/29/24. Patient takes Tradjenta for diabetes at home. Plan: -Bedside blood glucose checks ACHS -Insulin lispro sliding scale -Carb consistent low diet #Hx PRES syndrome -follow up outpatient -CT head negative for hemorrhage #Hx cannabis use Patient extensively counseled on adverse effects of cannabis use and possible contribution to her vomiting. Advised patient to completely discontinue. Patient endorses understanding. Health maintenance: Disposition: IV antiemetics. Hemodialysis Diet: Clear liquid Lines: pIVs GI Prophylaxis: Pantoprazole Thrombo Prophylaxis: SCDs Code status: FULL CODE - Patient's plan and care discussed with my attending, Dr. Freda Ashford MD Internal Medicine PGY-2 Attending Provider Attestation/Addendum I have examined the patient, reviewed labs and imaging findings, discussed the case with the resident(s), and reviewed entered orders. I agree with the plan of care as outlined in this note, with these additional summaries/recommendations: Patient seen at bedside after hemodialysis. She is still endorsing intractable nausea and vomiting and we will continue antiemetics. Vomiting most likely secondary to cyclic vomiting syndrome from THC. We will continue antiemetics and continue to advance diet as tolerated. CT abdomen pelvis yesterday showed hematoma in the right lower abdominal wall 6.2X 3.7 cm which was most likely related to peritoneal dialysis catheter removal. Likely chronic and has been present for over a month. Risks of resuming and holding anticoagulation were discussed with patient and we will restart aspirin today and likely Plavix at a later date. Patient was found to have hypertensive urgency on admission and patient's blood pressure continues to be labile. Systolic blood pressure in the 190s this morning and we will continue to titrate antihypertensive regimen. Nephrology following for inpatient hemodialysis. Continue insulin sliding scale for diabetes mellitus type 2. Continue antibiotic for urinary tract infection. Repeat hematology and chemistry panel in AM. Dr. Freda MD
[2025-01-09] MEDS: ASPIRIN 300 MG SUPP 150 MG PR (16:34)
--- NOTE | 2025-01-09 17:34 | PC.NURSE ---
I notified Dr Saab that patient had blood pressure of 173/105 s/p administration of Labetalol. Awaiting orders.
[2025-01-09] MEDS: METOCLOPRAMIDE INJ 5 MG/ML VIAL 2 ML 10 MG IVP (18:39)
--- NOTE | 2025-01-09 23:41 | ESCONSULT_ITS ---
RE: KAREN BARNES : 1960 DATE OF CONSULTATION: 01/09/2025 REASON FOR REFERRAL: ESRD management. REFERRING PHYSICIAN: Hospitalist. HISTORY OF PRESENT ILLNESS: This patient is a 64-year-old woman with past medical history significant for type 2 diabetes with nephropathy, neuropathy, and retinopathy, hypertension, and ESRD on dialysis every Monday, Monday, and Monday who used to be on peritoneal dialysis from 01/2022 to 03/2024 and was transitioned to hemodialysis prior to her CABG on 10/17/2024. The patient has a history of esophageal ulcers, coronary artery disease status post pacemaker placement and CABG on 09/2024 . She presented to the emergency room yesterday with nonstop nausea and vomiting with a blood pressure of 210/110. The patient on last admission about 1 1/2 months ago also presented with an elevated blood pressure and was found with posterior reversible encephalopathy syndrome. The patient has a history of gastroparesis and has on and off nausea and vomiting in the past. She also uses weed to alleviate her nausea and vomiting. She told me today that she has not been taking her blood pressure levels at home and has not been taking her blood pressure medication either. Last time she was in the hospital, she had a blood pressure in the 225 systolic and during that time she also had a seizure, which was witnessed. When she left from the hospital, she was placed on valsartan 40 mg p.o. daily and midodrine was resumed, which was given p.r.n. for blood pressure less than 130. However, the patient denied taking midodrine after she was discharged last time. She also denied taking her medications on a daily basis. The patient is more awake and alert now and denies any chest pain, shortness of breath, or leg swelling. She denies fever. She continues to be nauseated. She said that she has been taking Phenergan, Zofran, and Reglan at home. PAST MEDICAL HISTORY: As previously mentioned, coronary artery disease, CABG, history of CVA with no residual weakness, type 2 diabetes, neuropathy, retinopathy, nephropathy, history of hypertension secondary to autonomic neuropathy, history of gastroparesis, history of smoking weeds habitually. SURGICAL HISTORY: PD catheter placement x2, CABG, pacemaker placement, section. FAMILY HISTORY: Her father was also on dialysis. ALLERGIES: NO KNOWN DRUG ALLERGIES. CURRENT MEDICATIONS: 1. Aspirin 81 mg daily. 2. Ceftriaxone 1 g IV daily. 3. Heparin 5000 units q.8. 4. Lispro sliding scale. 5. Labetalol 10 mg IV q.2 p.r.n. 6. Metoclopramide 10 mg IV q. 6. 8 Ondansetron 8 mg IV q.4 p.r.n. 9. Protonix 40 mg IV daily. 10. Senokot 1 tablet p.o. daily. PHYSICAL EXAMINATION: General: She is awake, alert, and oriented x3. Sister by the bedside. Vital Signs: Blood pressure of 164/96, heart rate of 83, temperature of 100, O2 saturation of 99%. HEENT: Anicteric sclerae. Normocephalic. Neck: Supple. No JVD. Chest and Lungs: Symmetrical expansion. Clear breath sounds. Heart: Without murmur. Abdomen: Soft, nontender. Extremities: No edema. LABORATORY DATA: Hemoglobin 13.8, WBC 52269, platelet count 274,000. Sodium 139, potassium . BUN 24, creatinine 3.4, glucose 175, calcium 9.8. Head CT negative for acute hemorrhage, mass-like on midline shift. Abdominal and pelvic CT without contrast. Hematoma at the right lower abdominal wall. ASSESSMENT: 1. End-stage renal disease. 2. Nausea and vomiting most likely secondary to gastroparesis versus due to elevated blood pressure versus side effects of smoking weeds. 3. Type 2 diabetes. 4. Uncontrolled hypertension. 5. Leukocytosis. 6. Non Compliance with meds PLAN: The patient will be dialyzed on her regular days, i.e., Monday, Monday, and Monday. We will continue her antihypertensives. She was advised to avoid smoking weeds. We will continue Reglan and Zofran and resume Valsartan 40mg po prn for BP=>140 systolic. DT: 22:14:32 TT: 23:14:00 Ref: [id number] - TID: [id number] MTDD
[2025-01-10] VITALS (25 sets, daily range): BP systolic 89–188; BP diastolic 57–155; PULSE 75–99; RESP 12–20; TEMP 36.7–38.4; O2SAT 95–99; BMI 24.0
[2025-01-10] MEDS: METOCLOPRAMIDE INJ 5 MG/ML VIAL 2 ML 10 MG IVP ×4 (00:30→19:19)
[2025-01-10] MEDS: ACETAMINOPHEN IVPB 1,000 MG/100 ML VIAL 250 MG IV ×2 (00:39→09:54)
[2025-01-10] MEDS: ONDANSETRON INJ 2 MG/ML INJ 2 ML 8 MG IV ×6 (01:52→22:23)
--- NOTE | 2025-01-10 04:16 | PC.NURSE ---
DR. CRAIG MADE AWARE OF BP TRENDING DOWN TO 102/63. TEMP 99.6. NORMAL BP DURING HER ADMISSION SBP 160-180'S. SR HR 80'S. MADE AWARE OF NO BLOOD CULTURES DURING ADMISSION, MD STATES THAT CAN BE RELAYED TO DAY TEAM ROUNDING. MD STATING TO RECHECK BP AT 0600. NO FURTHER ORDERS.
[2025-01-10 06:24] LABS: Basophils # (Auto) 0.1 Thou/mm3 (0.0-0.2); Basophils % (Auto) 0 % (0-2.5); Eosinophils % (Auto) 0 % (0-10); Hematocrit 40.2 % (36.0-46.0); Hemoglobin 12.9 g/dL (12.0-16.0); Immature Granulocytes % (Auto) 1 % (0-0); Immature Granulocytes Auto 0.16 Thou/mm3 (0.00-0.00); Lymphocytes # (Auto) 2.7 Thou/mm3 (1.0-4.8); Lymphocytes % (Auto) 14 % (10-50); Mean Corpuscular HGB Conc 32.1 g/dl (31.0-37.0); Mean Corpuscular Hemoglobin 29.8 pg (25.0-35.0); Mean Corpuscular Volume 93 fL (80-100); Monocytes # (Auto) 1.5 Thou/mm3 (0.0-0.8); Monocytes % (Auto) 8 % (0-12); Neutrophils # (Auto) 14.4 Thou/mm3 (1.8-7.7); Neutrophils % (Auto) 77 % (37-80); Nucleated Red Blood Cell % 0 /100 WBC (0); Platelet Count 272 Thou/mm3 (140-440); RDW Standard Deviation 56.7 fL (36.4-46.3); Red Blood Count 4.33 Miln/mm3 (4.00-5.20); White Blood Count 18.8 Thou/mm3 (3.6-11.0)
[2025-01-10 06:59] LABS: Alanine Aminotransferase 8 U/L (10-49); Albumin, Serum 4.3 gm/dL (3.4-4.8); Albumin/Globulin Ratio 1.6 (1.2-2.2); Alkaline Phosphatase 89 U/L (46-116); Anion Gap 17 (7-16); Aspartate Amino Transferase 17 U/L (0-34); BUN/Creatinine Ratio 8 Ratio (12-20); Bilirubin,Total 0.5 mg/dL (0.3-1.2); Blood Urea Nitrogen 37 mg/dL (9-23); Carbon Dioxide 21.9 mMol/L (20.0-31.0); Chloride 98 mMol/L (98-107); Creatinine (Component) 4.4 mg/dL (0.6-1.3); Estimated Creatinine Clearance 12.1 mL/min (>60); Globulin 2.7 gm/dL (2.3-3.5); Glucose 134 mg/dL (74-106); Osmolality,Calculated 284 (275-295); Phosphorous 5.6 mg/dL (2.4-5.1); Potassium 3.6 mMol/L (3.4-5.1); Sodium 137 mMol/L (136-145); eGFR 11 See Note
--- NOTE | 2025-01-10 08:45 | PC.NURSE ---
BP LOW PT DENIES ALL S/S OF HYPOTENSION WILL ADMIN PRN ALBUMIN PER MD ORDERS AND CONT. TO MONITOR
[2025-01-10] MEDS: ALBUMIN HUMAN 25% IVPB 25 GM/100 ML BTL IV (08:48)
--- NOTE | 2025-01-10 09:13 | PC.NURSE ---
tx paused all blood returned d/t machine air alarm that could not be fixed, pt remained asymptomatic all blood returned. will restring machine and resume tx as tolerated.
--- NOTE | 2025-01-10 09:19 | PC.NURSE ---
tx resumed w/o complications, will cont. to monitor
--- NOTE | 2025-01-10 10:33 | PD.RESPRO ---
Documentation for date of: 01/10/25 Subjective Subjective Interval history: Patient was seen and examined at bedside this AM. Overnight patient had temperature spike of 101.2F. Patient tolerating diet, adequate urine output and mentation is at baseline. Patient still complains of nausea and retching, although improved from yesterday. She can tolerate liquids but not solids at this time. Blood and urine cultures ordered for febrile episode. Patient had hemodialysis today with 2L ultrafiltration. Abdominal ultrasound completed on 01/10/2025 findings include: Soft tissue hematoma at the area concern 6.1 x 2.8 x 5.2 cm Hematoma is stable, will resume Plavix from tomorrow Exam Vital Signs Temp Pulse Resp BP Pulse Ox O2 Del Method 99.0 F 88 12 173/110 H 99 Room Air 01/10/25 08:00 01/10/25 10:30 01/10/25 08:00 01/10/25 10:30 01/10/25 08:00 01/10/25 08:00 Narrative Exam Constitutional Alert, oriented x 3 and mild distress. Elderly female HEENT Vision grossly intact. Patent nares. Trachea midline Respiratory Chest normal on inspection and clear auscultation bilaterally. Right tunneled dialysis catheter noted. Exit site clean Cardiovascular S1 and S2 audible, RRR. No murmurs carotid bruit. No gross JVD. Abdominal Obese, large ecchymosis right lower quadrant, firm to palpation, healed surgical scar noted. Bowel sounds present Genitourinary No bladder tenderness, no flank pain. Normal to palpation Musculoskeletal Extremities tone within normal limits. No LE edema. Neurological CN II - XII grossly intact. Extremity motor and sensation grossly intact. Skin Warm, dry and intact. No apparent lesions. Psychiatric Patient has good affect, is cooperative Objective Labs 01/11/25 06:02 01/11/25 06:02 Labs: Laboratory Results - last 24 hr 01/10/25 04:25 WBC 18.8 H RBC 4.33 Hgb 12.9 Hct 40.2 MCV 93 MCH 29.8 MCHC 32.1 RDW Std Deviation 56.7 H Plt Count 272 Neut % (Auto) 77 Lymph % (Auto) 14 [place] % (Auto) 8 Eos % (Auto) 0 Baso % (Auto) 0 Neut # (Auto) 14.4 H Lymph # (Auto) 2.7 [place] # (Auto) 1.5 H Eos # (Auto) 0.0 Baso # (Auto) 0.1 Immature Gran # (Auto) 0.16 H Absolute Nucleated RBC 0.00 Immature Gran % 1 H Nucleated RBC % 0 Sodium 137 Potassium 3.6 Chloride 98 Carbon Dioxide 21.9 Anion Gap 17 H BUN 37 H Creatinine 4.4 H* D Estim Creat Clear Calc 12.1 L eGFR 11 L* BUN/Creatinine Ratio 8 L Glucose 134 H Calculated Osmolality 284 Calcium 9.0 Corrected Calcium 9.0 Phosphorus 5.6 H Magnesium 2.0 Total Bilirubin 0.5 AST 17 ALT 8 L Alkaline Phosphatase 89 Total Protein 7.0 Albumin 4.3 Globulin 2.7 Albumin/Globulin Ratio 1.6 Quality Measures Quality Measures VTE prophylaxis Assessment & Plan Assessment Current Active Medications: Generic Name Dose Route Start Last Admin Trade Name Freq PRN Reason Stop Dose Admin Aspirin 81 mg 01/09/25 12:00 01/09/25 12:31 Aspirin Ec 81 Mg Tabec PO 02/08/25 11:59 Not Given QDAY ALEX Aspirin 150 mg 01/09/25 15:45 01/09/25 16:34 Aspirin 300 Mg Supp WV 02/08/25 15:44 150 mg QDAY ALEX Administration Dextrose 25 ml 01/08/25 01:54 Dextrose 50%-Water Inj 50 Ml Syringe IV 02/07/25 01:53 Q15MIN PRN BG 50-70 responsive npo pt Dextrose 50 ml 01/08/25 01:54 Dextrose 50%-Water Inj 50 Ml Syringe IV 02/07/25 01:53 Q15MIN PRN BG <50 OR BG <70 & pt unresponsive Glucagon 1 mg 01/08/25 01:54 Glucagon Inj 1 Mg Vial IM Q15MIN PRN BG <70, and no IV access Heparin Sodium (Porcine) 5,000 unit 01/08/25 01:00 01/08/25 05:01 Heparin Sod Inj 5000 Unit/Ml Vial SC 01/22/25 00:59 5,000 unit Q8HR ALEX Administration Heparin Sodium (Porcine) 3,300 unit 01/08/25 08:55 01/08/25 10:16 Heparin Sod Inj 1000 Unit/Ml Vial 10 Ml INDWELLCAT 01/22/25 08:54 3,300 unit X1 PRN Administration DIALYSIS Ceftriaxone Sodium/Dextrose 1 gm in 50 mls @ 100 mls/hr 01/08/25 09:00 01/09/25 08:25 Rocephin/D5w 1gm Iv Premix IV 01/15/25 08:59 100 mls/hr QDAY ALEX Administration Albumin Human 25 gm in 100 mls @ 100 mls/min 01/10/25 08:40 01/10/25 08:48 Albuminar-25 Ivpb IV 100 mls/min PRN PRN Administration DIALYSIS Insulin Human Lispro 0 unit 01/08/25 07:30 01/10/25 07:18 Insulin Lispro (Admelog) 1 Unit/0.01 Ml Unit SC 02/07/25 07:29 Not Given AC ALEX Protocol Labetalol HCl 10 mg 01/09/25 08:03 01/09/25 18:40 Labetalol Inj 5 Mg/Ml Vial 20 Ml IVP 02/07/25 08:23 10 mg Q2H PRN Administration SBP > 180 Metoclopramide HCl 10 mg 01/09/25 15:25 01/10/25 06:16 Metoclopramide Inj 5 Mg/Ml Vial 2 Ml IVP 02/07/25 05:59 10 mg Q6HR PRN Administration vomiting Protocol Ondansetron HCl 8 mg 01/08/25 09:38 01/10/25 10:03 Ondansetron Inj 2 Mg/Ml Inj 2 Ml IV 02/07/25 00:43 8 mg Q4HR PRN Administration NAUSEA OR VOMITING Protocol Pantoprazole Sodium 40 mg 01/08/25 15:45 01/09/25 08:25 Pantoprazole Inj 40 Mg Vial IVP 02/07/25 15:44 40 mg QDAY ALEX Administration Sennosides 1 tab 01/08/25 00:44 01/08/25 17:01 Senna Tablet PO 02/07/25 00:43 1 tab QDAY PRN Administration constipation Protocol Plan Summary: Edita Carmona is 64 yr female with PMH of hypertension, ESRD on dialysis Monday with Dr Awad, CAD status post CABG, recurrent UTIs on daily Keflex, pacemaker placement September 2024, type 2 diabetes, hypotension on midodrine, and PRES syndrome presenting to ED due to intractable nausea and vomiting that started yesterday afternoon. Nephrology Dr Awad consulted for resuming hemodialysis. Patient admitted for management of intractable nausea and vomiting and UTI. Hypertensive Urgency -improving BP 222/151 on admission, tachycardic 112. No evidence of endorgan damage. She was alert and oriented x 3. Patient was given hydralazine 10 mg IV x 2 while in ED which brought blood pressure down to 170/105. She was discharged with valsartan on last admission. States that she does not take it every day as typically blood pressure runs on the lower side and uses midodrine. Plan: ? Continue labetalol 10 Mg IV every 2 hourly for SBP >180 ?Will resume oral antihypertensives once patient tolerates Intractable nausea and vomiting?resolving DDx: Most likely cyclical vomiting from THC use vs diabetic gastroparesis vs viral gastritis. Experiencing intractable nausea and vomiting since yesterday afternoon. Patient denied use of marijuana at bedside however U tox positive for THC, opioids, benzos. EGD completed last admission showed gastritis. Was given prochlorperazine 10 mg, metoclopramide 10 mg, scopolamine patch, palonosetron 0.25mg in ED. Patient still complains of nausea and vomiting after ingestion of solids. However she is able to tolerate clear liquids. Plan: ? Continue metoclopramide 10 Mg IV every 6 hourly as needed ? Continue ondansetron to 8 Mg IV Q4 hourly as needed ? May consider erythromycin if nausea and vomiting persists SBO ruled out Abdominal wall hematoma?stable Abdomen/Pelvis CT completed on 01/08/2025 findings include: Small retrocardiac gastric hernia. Soft tissue mass at prior entrance site of hemodialysis catheter, consistent with hematoma, 6.2 x 3.7 cm. Mild thickening of right anterior pelvic wall. Negative for bowel obstruction. Abdominal ultrasound completed on 01/10/2025 findings include: Soft tissue hematoma at the area concern 6.1 x 2.8 x 5.2 cm Plan: ? Abdominal wall hematoma stable, will resume Plavix from tomorrow. CAD s/p CABG Patient takes aspirin 81 mg and Plavix 75 mg daily Plan: ? Continue aspirin per rectum 150 mg p.o. daily as maintenance. Will switch to p.o. once patient can tolerate ? Will resume Plavix tomorrow Recurrent UTIs Patient denies any dysuria but has a history of recurrent UTIs approximately 1 month. Was started on Keflex 500 mg daily by PCP. Leukocytosis 18. UA positive for UTI with leukocyte esterase, 106 WBC Plan: ? Continue ceftriaxone 1 g IV daily started on [01/08? ESRD on HD MWF via right tunneled dialysis catheter Patient follows Dr Awad. Was on peritoneal dialysis and transition to dialysis via TDC. Patient is hoping for kidney transplant this summer. Patient had hemodialysis today with 2L ultrafiltration Plan: ? Continue hemodialysis as per nephrology recommendations ? Renally dose medication ? Avoid nephrotoxic agents ? Nephrology, Dr. Awad consulted and closely following. Appreciate recommendations Aum-yumkgxi-cttaznjrn type 2 diabetes, controlled On admission initial glucose 250. Last A1c 4.6 on 11/29/24. Patient takes Tradjenta for diabetes at home. Plan: -Bedside blood glucose checks ACHS -Insulin lispro sliding scale -Carb consistent low diet #Hx PRES syndrome -follow up outpatient -CT head negative for hemorrhage #Hx cannabis use Patient extensively counseled on adverse effects of cannabis use and possible contribution to her vomiting. Advised patient to completely discontinue. Patient endorses understanding. Health maintenance: Disposition: IV antiemetics. Hemodialysis Diet: Clear liquid Lines: pIVs GI Prophylaxis: Pantoprazole Thrombo Prophylaxis: SCDs Code status: FULL CODE Plan of care discussed with Attending Dr. Freda Kaur MD PGY 1 Disclaimer: This note was dictated by speech recognition. Minor errors in machine loader may be present due to voice recognition software. Attending Provider Attestation/Addendum I have examined the patient, reviewed labs and imaging findings, discussed the case with the resident(s), and reviewed entered orders. I agree with the plan of care as outlined in this note, with these additional summaries/recommendations: Patient seen at bedside. Overnight patient spiked a fever with Tmax of 101.2 F. Unclear source for fever at this time although possibly related to urinary tract infection. Urine culture and blood cultures ordered. Continue IV Rocephin. Follow-up culture results when available. She is still endorsing intractable nausea and vomiting although per patient is improving. Continue antiemetics. Vomiting most likely secondary to cyclic vomiting syndrome from THC versus gastroparesis. Patient still only able to tolerate clear liquid diet and we will continue to advance as tolerated. CT abdomen pelvis showed hematoma in the right lower abdominal wall 6.2X 3.7 cm which was most likely related to peritoneal dialysis catheter removal. Likely chronic and has been present for over a month. Risks of resuming and holding anticoagulation were discussed with patient and we will restart aspirin today and likely Plavix at a later date. Patient was found to have hypertensive urgency on admission and patient's blood pressure continues to be labile. We will continue to adjust antihypertensive regimen as needed. Nephrology following for inpatient hemodialysis. Continue insulin sliding scale for diabetes mellitus type 2. Continue antibiotic for urinary tract infection. Repeat hematology and chemistry panel in AM. Dr. Freda MD
--- NOTE | 2025-01-10 10:47 | PC.NURSE ---
BFR to 250 d/t increased evp of products & co founder despite all interventions will cont. to monitor.
--- NOTE | 2025-01-10 10:50 | XR_ITS ---
Examination: Abdomen sonogram, Limited Date and time of exam: January 10, 2025 1242 hours INDICATIONS: Hematoma at site of removal peritoneal dialysis catheter 04.26 Technique: Real-time zamora scale transabdominal sonographic images of the upper abdomen obtained. Findings: Soft tissue hematoma in the anterior abdomen at the area concern 6.1 x 2.8 x 5.2 cm IMPRESSION: Soft tissue hematoma at the area concern 6.1 x 2.8 x 5.2 cm
--- NOTE | 2025-01-10 11:07 | PC.NURSE ---
TX TERMINATED 25 MIN EARLY D/T INCRE[employer]ED [employer] SALES DESPITE ALL INTERVENTIONS. ALL BLOOD RETURNED, POST RINSE BACK CLTTING NOTED TO VENOUS CHAMBER AND DIALYZER. PT REMAINS ASYMPTOMATIC. MD NOTIFED.
[2025-01-10] MEDS: HEPARIN SOD INJ 1000 UNIT/ML VIAL 10 ML 3300 UNIT INDWELLCAT (11:29)
[2025-01-10] MEDS: PANTOPRAZOLE INJ 40 MG VIAL IVP (11:47)
[2025-01-10] MEDS: cefTRIAXone/D5w 1gm IV premix 1 GM/50 ML BAG IV (11:47)
[2025-01-10] MEDS: LABETALOL INJ 5 MG/ML VIAL 20 ML 10 MG IVP (12:00)
--- NOTE | 2025-01-10 13:10 | PC.SS ---
Rounding: On IV ABX, still experiencing N/V
--- NOTE | 2025-01-10 13:46 | ESPR_ITS ---
RE: KAREN BARNES : 1960 DATE OF SERVICE: 01/10/2025 HISTORY OF PRESENT ILLNESS: This patient is a 64-year-old woman with type 2 diabetes with nephropathy, neuropathy, retinopathy, hypertension, ESRD on dialysis every Monday, Monday, and Monday, status post CABG in 2024, history of esophageal ulcers, history of nausea and vomiting with gastroparesis who presented to the emergency room on 01/09/2025 with nausea, vomiting, and blood pressure of 210/110 mmHg. The patient just had dialysis today about 1.6 liters of fluid was removed. The patient also clotted her dialyzer in the last 20 minutes of her dialysis time. The patient continues to have nausea and has not been able to tolerate any liquid or oral tablets yet. She is being provided with IV hydralazine for blood pressure control. She continued to retch all day. MEDICATIONS: 1. Aspirin 81 mg daily via rectum. 2. Ceftriaxone 1 g IV daily. 3. Heparin 5000 units subcutaneously ever 8 hours. 4. Lispro sliding scale. 5. Labetalol 10 mg IV every 2 hours p.r.n. 7. Metoclopramide 10 mg IV every 6 hours p.r.n. 8. Ondansetron 8 mg IV every 4 hours. 9. Protonix 40 mg IV daily. 10. Senokot 1 tablet via rectum. PHYSICAL EXAMINATION: General: She is awake, alert, and oriented. Sister by the bedside. Vital Signs: Blood pressure of 129/112. HEENT: Anicteric sclerae. Normocephalic. Neck: Supple. No JVD. Chest and Lungs: Symmetrical expansion. Clear breath sounds. Heart: Without murmur. Abdomen: Soft, nontender. Extremities: No edema. LABORATORY DATA: Hemoglobin 12.9, white blood cell count 18,800, platelet count 272,000. Sodium 137, potassium 3.6, chloride 98, CO2 of 21.9, BUN 37, creatinine 4.4, glucose 134, and calcium 9.0. ASSESSMENT: 1. End-stage renal disease. 2. Intractable nausea and vomiting, possibly secondary to gastroparesis due to side effects of smoking weeds. 3. Type 2 diabetes. 4. Uncontrolled hypertension, now improved. 5. Leukocytosis. 6. Noncompliance with antihypertensive at home. PLAN: The patient just had dialysis today, about 1.6 liters of fluid was removed. Next dialysis will be Monday. We will continue her Reglan and Zofran. Once able to tolerate oral medications, then we will continue valsartan 40 mg p.o. p.r.n. for blood pressure equal to more than 140 systolic. DT: 12:27:22 TT: 13:44:00 Ref: [id number] - TID: [id number]
--- NOTE | 2025-01-10 15:34 | PC.DIETICIAN ---
Nutrition Recommendation: When indicated --> continue with diabetic clear liquids. Recommend advancing to Consistent carb with Low-fat and 6-small meals modifiers. Thank you! :)
[2025-01-11] VITALS (9 sets, daily range): BP systolic 117–166; BP diastolic 73–94; PULSE 76–94; RESP 14–100; TEMP 36.1–37.1; O2SAT 85–99; BMI 24.0
[2025-01-11] MEDS: METOCLOPRAMIDE INJ 5 MG/ML VIAL 2 ML 10 MG IVP ×3 (01:24→19:06)
[2025-01-11] MEDS: ONDANSETRON INJ 2 MG/ML INJ 2 ML 8 MG IV ×4 (02:28→16:33)
[2025-01-11 06:32] LABS: Basophils # (Auto) 0.1 Thou/mm3 (0.0-0.2); Basophils % (Auto) 1 % (0-2.5); Eosinophils # (Auto) 0.1 Thou/mm3 (0.0-0.5); Eosinophils % (Auto) 0 % (0-10); Hematocrit 43.2 % (36.0-46.0); Hemoglobin 13.9 g/dL (12.0-16.0); Immature Granulocytes % (Auto) 1 % (0-0); Immature Granulocytes Auto 0.12 Thou/mm3 (0.00-0.00); Lymphocytes # (Auto) 2.5 Thou/mm3 (1.0-4.8); Lymphocytes % (Auto) 17 % (10-50); Mean Corpuscular HGB Conc 32.2 g/dl (31.0-37.0); Mean Corpuscular Volume 93 fL (80-100); Monocytes # (Auto) 1.6 Thou/mm3 (0.0-0.8); Monocytes % (Auto) 11 % (0-12); Neutrophils # (Auto) 10.5 Thou/mm3 (1.8-7.7); Neutrophils % (Auto) 71 % (37-80); Nucleated Red Blood Cell % 0 /100 WBC (0); Platelet Count 234 Thou/mm3 (140-440); RDW Standard Deviation 55.3 fL (36.4-46.3); Red Blood Count 4.63 Miln/mm3 (4.00-5.20); White Blood Count 14.9 Thou/mm3 (3.6-11.0)
[2025-01-11 07:29] LABS: Alanine Aminotransferase 10 U/L (10-49); Albumin, Serum 4.8 gm/dL (3.4-4.8); Albumin/Globulin Ratio 1.7 (1.2-2.2); Alkaline Phosphatase 87 U/L (46-116); Anion Gap 15 (7-16); Aspartate Amino Transferase 16 U/L (0-34); BUN/Creatinine Ratio 7 Ratio (12-20); Bilirubin,Total 0.7 mg/dL (0.3-1.2); Blood Urea Nitrogen 29 mg/dL (9-23); Calcium 9.2 mg/dL (8.3-10.6); Calcium (Corrected) 9.2 mg/dL (8.5-10.1); Carbon Dioxide 24.6 mMol/L (20.0-31.0); Chloride 95 mMol/L (98-107); Creatinine (Component) 4.2 mg/dL (0.6-1.3); Estimated Creatinine Clearance 12.7 mL/min (>60); Globulin 2.9 gm/dL (2.3-3.5); Glucose 149 mg/dL (74-106); Osmolality,Calculated 278 (275-295); Phosphorous 5.1 mg/dL (2.4-5.1); Potassium 3.4 mMol/L (3.4-5.1); Sodium 135 mMol/L (136-145); Total Protein 7.7 gm/dL (5.7-8.2); eGFR 11 See Note
[2025-01-11] MEDS: INSULIN LISPRO (AdmeLOG) 1 UNIT/0.01 ML UNIT SC (07:44)
--- NOTE | 2025-01-11 07:59 | EKG_ITS ---
[facility] Test Date: 2025-01-11 Pat Name: KAREN BARNES Department: Room: S272A Gender: Female [employer]: MARCUS : 1960 Requested By: Eric Kaur Order Number: [id number] Reading MD: Eric Kaur Measurements Intervals [place] Rate: 79 P: 55 OK: 159 QRS: -22 QRSD: 97 T: -25 QT: 375 QTc: 432 Interpretive Statements SINUS RHYTHM POSSIBLE LEFT ATRIAL ENLARGEMENT INCOMPLETE RIGHT BUNDLE BRANCH BLOCK LEFT VENTRICULAR HYPERTROPHY AND ST-T CHANGE POSSIBLE ANTERIOR MYOCARDIAL INFARCTION , OF INDETERMINATE AGE Compared to ECG 01/07/2025 20:26:39 Incomplete right bundle-branch block now present Myocardial infarct finding now present Sinus tachycardia no longer present ST (T wave) deviation still present /store/S0/[id number]
[2025-01-11] MEDS: ASPIRIN 300 MG SUPP 150 MG PR (09:20)
[2025-01-11] MEDS: PANTOPRAZOLE INJ 40 MG VIAL IVP (09:20)
[2025-01-11] MEDS: cefTRIAXone/D5w 1gm IV premix 1 GM/50 ML BAG IV (09:21)
--- NOTE | 2025-01-11 09:58 | ESPR_ITS ---
<Statement entered by Radha Ashford MD - 01/12/25 17:49> Patient was seen and examined at bedside, agree on the assessment and plan on this note. - Patient's plan and care discussed with my attending, Dr. Freda Ashford MD Internal Medicine PGY-2 Documentation for date of: 01/11/25 Subjective Subjective Interval history: Patient was seen and examined at bedside this AM. No acute exents overnight. Patient tolerating liquids, adequate urine output and mentation is at baseline. Patient endorses improvement of nausea. She is still not able to tolerate solids, but says she wants to try today. Patient has not had a bowel movement for the past 6 days, however she also has been on a liquid diet for the same duration. Started on senna and Metamucil daily. EKG today showed QTc 432. Gastroenterology, Dr. Castorena consulted for gastroparesis and intractable nausea and vomiting. Urine culture grew GPC preliminary. Started on vancomycin IV daily, pharmacy to dose. Exam Vital Signs Temp Pulse Resp BP Pulse Ox O2 Del Method 97.9 F 82 16 139/86 H 99 Room Air 01/11/25 08:00 01/11/25 08:00 01/11/25 08:00 01/11/25 08:00 01/11/25 08:00 01/11/25 08:00 Narrative Exam Constitutional Alert, oriented x 3 and mild distress. Elderly female HEENT Vision grossly intact. Patent nares. Trachea midline Respiratory Chest normal on inspection and clear auscultation bilaterally. Right tunneled dialysis catheter noted. Exit site clean Cardiovascular S1 and S2 audible, RRR. No murmurs carotid bruit. No gross JVD. Abdominal Obese, large ecchymosis right lower quadrant, firm to palpation, healed surgical scar noted. Bowel sounds present Genitourinary No bladder tenderness, no flank pain. Normal to palpation Musculoskeletal Extremities tone within normal limits. No LE edema. Neurological CN II - XII grossly intact. Extremity motor and sensation grossly intact. Skin Warm, dry and intact. No apparent lesions. Psychiatric Patient has good affect, is cooperative Objective Labs 01/12/25 05:31 01/12/25 05:31 Labs: Laboratory Results - last 24 hr 01/11/25 06:02 WBC 14.9 H RBC 4.63 Hgb 13.9 Hct 43.2 MCV 93 MCH 30.0 MCHC 32.2 RDW Std Deviation 55.3 H Plt Count 234 D Neut % (Auto) 71 Lymph % (Auto) 17 [place] % (Auto) 11 Eos % (Auto) 0 Baso % (Auto) 1 Neut # (Auto) 10.5 H Lymph # (Auto) 2.5 [place] # (Auto) 1.6 H Eos # (Auto) 0.1 Baso # (Auto) 0.1 Immature Gran # (Auto) 0.12 H Absolute Nucleated RBC 0.00 Immature Gran % 1 H Nucleated RBC % 0 Sodium 135 L Potassium 3.4 Chloride 95 L Carbon Dioxide 24.6 Anion Gap 15 BUN 29 H Creatinine 4.2 H* Estim Creat Clear Calc 12.7 L eGFR 11 L* BUN/Creatinine Ratio 7 L Glucose 149 H Calculated Osmolality 278 Calcium 9.2 Corrected Calcium 9.2 Phosphorus 5.1 Magnesium 2.0 Total Bilirubin 0.7 AST 16 ALT 10 Alkaline Phosphatase 87 Total Protein 7.7 Albumin 4.8 D Globulin 2.9 Albumin/Globulin Ratio 1.7 Quality Measures Quality Measures VTE prophylaxis Assessment & Plan Assessment Current Active Medications: Generic Name Dose Route Start Last Admin Trade Name Freq PRN Reason Stop Dose Admin Aspirin 81 mg 01/09/25 12:00 01/09/25 12:31 Aspirin Ec 81 Mg Tabec PO 02/08/25 11:59 Not Given QDAY ALEX Aspirin 150 mg 01/09/25 15:45 01/11/25 09:20 Aspirin 300 Mg Supp MN 02/08/25 15:44 150 mg QDAY ALEX Administration Dextrose 25 ml 01/08/25 01:54 Dextrose 50%-Water Inj 50 Ml Syringe IV 02/07/25 01:53 Q15MIN PRN BG 50-70 responsive npo pt Dextrose 50 ml 01/08/25 01:54 Dextrose 50%-Water Inj 50 Ml Syringe IV 02/07/25 01:53 Q15MIN PRN BG <50 OR BG <70 & pt unresponsive Glucagon 1 mg 01/08/25 01:54 Glucagon Inj 1 Mg Vial IM Q15MIN PRN BG <70, and no IV access Heparin Sodium (Porcine) 5,000 unit 01/08/25 01:00 01/08/25 05:01 Heparin Sod Inj 5000 Unit/Ml Vial SC 01/22/25 00:59 5,000 unit Q8HR ALEX Administration Heparin Sodium (Porcine) 3,300 unit 01/08/25 08:55 01/10/25 11:29 Heparin Sod Inj 1000 Unit/Ml Vial 10 Ml INDWELLCAT 01/22/25 08:54 3,300 unit X1 PRN Administration DIALYSIS Ceftriaxone Sodium/Dextrose 1 gm in 50 mls @ 100 mls/hr 01/08/25 09:00 01/11/25 09:21 Rocephin/D5w 1gm Iv Premix IV 01/15/25 08:59 100 mls/hr QDAY ALEX Administration Albumin Human 25 gm in 100 mls @ 100 mls/min 01/10/25 08:40 01/10/25 08:48 Albuminar-25 Ivpb IV 100 mls/min PRN PRN Administration DIALYSIS Insulin Human Lispro 0 unit 01/08/25 07:30 01/11/25 07:44 Insulin Lispro (Admelog) 1 Unit/0.01 Ml Unit SC 02/07/25 07:29 2 unit AC ALEX Administration Protocol Labetalol HCl 10 mg 01/09/25 08:03 01/10/25 12:00 Labetalol Inj 5 Mg/Ml Vial 20 Ml IVP 02/07/25 08:23 10 mg Q2H PRN Administration SBP > 180 Metoclopramide HCl 10 mg 01/09/25 15:25 01/11/25 01:24 Metoclopramide Inj 5 Mg/Ml Vial 2 Ml IVP 02/07/25 05:59 10 mg Q6HR PRN Administration vomiting Protocol Ondansetron HCl 8 mg 01/08/25 09:38 01/11/25 06:28 Ondansetron Inj 2 Mg/Ml Inj 2 Ml IV 02/07/25 00:43 8 mg Q4HR PRN Administration NAUSEA OR VOMITING Protocol Pantoprazole Sodium 40 mg 01/08/25 15:45 01/11/25 09:20 Pantoprazole Inj 40 Mg Vial IVP 02/07/25 15:44 40 mg QDAY ALEX Administration Psyllium Hydrophilic Mucilloid 1 pkt 01/11/25 09:30 Psyllium 1 Pkt Packet PO 02/10/25 09:29 BID ALEX Protocol Sennosides 1 tab 01/11/25 09:30 Senna Tablet PO 02/10/25 09:29 QDAY ALEX Protocol Plan Summary: Edita Carmona is 64 yr female with PMH of hypertension, ESRD on dialysis Monday with Dr Awad, CAD status post CABG, recurrent UTIs on daily Keflex, pacemaker placement September 2024, type 2 diabetes, hypotension on midodrine, and PRES syndrome presenting to ED due to intractable nausea and vomiting that started yesterday afternoon. Nephrology Dr Awad consulted for resuming hemodialysis. Patient admitted for management of intractable nausea and vomiting and UTI. Intractable nausea and vomiting?resolving Diabetic gastroparesis DDx: Most likely cyclical vomiting from THC use vs diabetic gastroparesis vs viral gastritis. Experiencing intractable nausea and vomiting since yesterday afternoon. Patient denied use of marijuana at bedside however U tox positive for THC, opioids, benzos. EGD completed last admission showed gastritis. Was given prochlorperazine 10 mg, metoclopramide 10 mg, scopolamine patch, palonosetron 0.25mg in ED. Patient still complains of nausea and vomiting after ingestion of solids. However she is able to tolerate clear liquids. EKG today showed QTc 432. Plan: ? Continue metoclopramide 10 Mg IV every 6 hourly as needed ? Continue ondansetron to 8 Mg IV Q4 hourly as needed ? May consider erythromycin if nausea and vomiting persists - Gastroenterology, Dr. Castorena consulted. Appreciate recommendations. GPC UTI Recurrent UTIs Patient denies any dysuria but has a history of recurrent UTIs approximately 1 month. Was started on Keflex 500 mg daily by PCP. Leukocytosis 18. UA positive for UTI with leukocyte esterase, 106 WBC 01/10 urine culture grew GPC preliminary. Plan: ? Continue ceftriaxone 1 g IV daily started on [01/08? ? Started on vancomycin IV, pharmacy to dose on [01/11? ESRD on HD MWF via right tunneled dialysis catheter Patient follows Dr Awad. Was on peritoneal dialysis and transition to dialysis via TDC. Patient is hoping for kidney transplant this summer. Patient had hemodialysis 01/10 with 2L ultrafiltration Plan: ? Continue hemodialysis as per nephrology recommendations ? Renally dose medication ? Avoid nephrotoxic agents ? Nephrology, Dr. Awad consulted and closely following. Appreciate recommendations Hypertensive Urgency -resolved BP 222/151 on admission, tachycardic 112. No evidence of endorgan damage. She was alert and oriented x 3. Patient was given hydralazine 10 mg IV x 2 while in ED which brought blood pressure down to 170/105. She was discharged with valsartan on last admission. States that she does not take it every day as typically blood pressure runs on the lower side and uses midodrine. Plan: ? Continue labetalol 10 Mg IV every 2 hourly for SBP >180 ? Will resume valsartan 40 Mg as needed for SBP greater than 140 once patient can tolerate. SBO ruled out Abdominal wall hematoma?stable Abdomen/Pelvis CT completed on 01/08/2025 findings include: Small retrocardiac gastric hernia. Soft tissue mass at prior entrance site of hemodialysis catheter, consistent with hematoma, 6.2 x 3.7 cm. Mild thickening of right anterior pelvic wall. Negative for bowel obstruction. Abdominal ultrasound completed on 01/10/2025 findings include: Soft tissue hematoma at the area concern 6.1 x 2.8 x 5.2 cm Plan: ? Abdominal wall hematoma stable, will resume Plavix from tomorrow, once patient can tolerate oral. CAD s/p CABG Patient takes aspirin 81 mg and Plavix 75 mg daily Plan: ? Continue aspirin per rectum 150 mg p.o. daily as maintenance. Will switch to p.o. once patient can tolerate ? Will resume Plavix tomorrow, once patient can tolerate oral. [id number] type 2 diabetes, controlled On admission initial glucose 250. Last A1c 4.6 on 11/29/24. Patient takes Tradjenta for diabetes at home. Plan: -Bedside blood glucose checks ACHS -Insulin lispro sliding scale -Carb consistent low diet PRES syndrome -follow up outpatient -CT head negative for hemorrhage Cannabis use Patient extensively counseled on adverse effects of cannabis use and possible contribution to her vomiting. Advised patient to completely discontinue. Patient endorses understanding. Health maintenance: Disposition: IV antiemetics. Hemodialysis. GI consult Diet: Clear liquid Lines: pIVs GI Prophylaxis: Pantoprazole Thrombo Prophylaxis: SCDs Code status: FULL CODE Plan of care discussed with Attending Dr. Barba and PGY 2 Dr. Makeda Kaur MD PGY 1 Disclaimer: This note was dictated by speech recognition. Minor errors in printing table worker may be present due to voice recognition software. Attending Provider Attestation/Addendum I have examined the patient, reviewed labs and imaging findings, discussed the case with the resident(s), and reviewed entered orders. I agree with the plan of care as outlined in this note, with these additional summaries/recommendations: Patient seen at bedside. No acute overnight events. Patient unfortunately still endorsing intractable nausea and vomiting. Continue IV Rocephin for urinary tract infection. Urine culture preliminarily showing GPC's and blood culture showed no growth at 24 hours. Add IV vancomycin to regimen. She is still endorsing intractable nausea and vomiting although per patient is improving. Continue antiemetics. Vomiting most likely secondary to cyclic vomiting syndrome from THC versus gastroparesis versus both. Patient still only able to tolerate clear liquid diet and we will continue to advance as tolerated. Continue metoclopramide and consult gastroenterology. CT abdomen pelvis showed hematoma in the right lower abdominal wall 6.2X 3.7 cm which was most likely related to peritoneal dialysis catheter removal. Likely chronic and has been present for over a month. Risks of resuming and holding anticoagulation were discussed with patient and we will restart aspirin today and likely Plavix at a later date. Patient was found to have hypertensive urgency on admission and patient's blood pressure improving today. We will continue to adjust antihypertensive regimen as needed. Nephrology following for inpatient hemodialysis. Continue insulin sliding scale for diabetes mellitus type 2. Continue antibiotic for urinary tract infection. Repeat hematology and chemistry panel in AM. Dr. Freda MD
[2025-01-11] MEDS: PSYLLIUM 1 PKT PACKET PO (10:25)
[2025-01-11] MEDS: SENNA TABLET 1 TAB PO (10:25)
[2025-01-11] MEDS: VANCOMYCIN/NS 1 GM IVPB 200 ML IV (11:40)
--- NOTE | 2025-01-11 20:07 | PD.IMCONS ---
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 vomiting She does carry a diagnosis of gastroparesis and on 11/30/2024 underwent upper endoscopy which showed gastritis and duodenitis No evidence of gastric outlet obstruction CT scan of the abdomen pelvis done without contrast showed hematoma right lower quadrant no other abnormality Abdominal ultrasound confirmed the hematoma which is about 6 x 7 cm Patient does have a history of end-stage renal disease on hemodialysis MWF coronary artery status post CABG recurrent UTI on Keflex daily status post pacemaker placement and essential hypertension cc:: cc: Kvng Barba MD Review of Systems Review of Systems Systems Reviewed: All systems reviewed, normal except as documented Past Medical History Surgical History OTHER SURGICAL HX: As in the history of present illness Meds Home Medications and Allergies Home Medications ?Medication ?Instructions ?Recorded ?Confirmed ?Type calcitriol 0.25 mcg capsule 0.5 mcg PO .qhs 09/15/23 01/08/25 History Held on 01/11/25. Instructions: Hold until you see your PCP aspirin 81 mg tablet,delayed 81 mg PO HS 11/28/24 01/08/25 History release (Adult Low Dose Aspirin) atorvastatin 40 mg tablet 40 mg PO HS 11/28/24 01/08/25 History clopidogrel 75 mg tablet 75 mg PO HS 11/28/24 01/08/25 History duloxetine 30 mg capsule,delayed 30 mg PO BID 11/28/24 01/08/25 History release (Cymbalta) linagliptin 5 mg tablet (Tradjenta) 5 mg PO HS 11/28/24 01/08/25 History midodrine 10 mg tablet 10 mg PO TID PRN SBP under 130 11/28/24 01/08/25 History ascorbate calcium (vitamin C) 500 1 g PO HS 12/01/24 01/08/25 History mg tablet vitamin B complex-vitamin C-folic 1 tab PO QDAY 12/01/24 01/08/25 History acid 0.8 mg tablet meclizine 25 mg tablet 25 mg PO PRN PRN dizziness 01/08/25 01/08/25 History Allergies Allergy/AdvReac Type Severity Reaction Status Date / Time No Known Allergies Allergy Verified 01/07/25 20:14 Exam Vital Signs Temp Pulse Resp BP Pulse Ox O2 Del Method 97.0 F 85 16 117/73 85 L Room Air 01/11/25 20:00 01/11/25 20:00 01/11/25 20:00 01/11/25 20:00 01/11/25 20:00 01/11/25 20:00 Constitutional Comments: Alert oriented Routine Respiratory Exam Comments: Normal to auscultation Routine Abdominal Exam Comments: Positive bowel sounds Results Labs 01/11/25 06:02 01/11/25 06:02 Labs: Short CBC 01/11/25 Range/Units 06:02 WBC 14.9 H (3.6-11.0) Thou/mm3 Hgb 13.9 (12.0-16.0) g/dL Hct 43.2 (36.0-46.0) % Plt Count 234 D (140-440) Thou/mm3 BMP 01/11/25 06:02 Sodium 135 L Potassium 3.4 Chloride 95 L Carbon Dioxide 24.6 BUN 29 H Creatinine 4.2 H* Glucose 149 H Calcium 9.2 Liver Function 01/11/25 Range/Units 06:02 Total Bilirubin 0.7 (0.3-1.2) mg/dL AST 16 (0-34) U/L ALT 10 (10-49) U/L Alkaline Phosphatase 87 (46-116) U/L Albumin 4.8 D (3.4-4.8) gm/dL Assessment and Plan Additional Assessment & Plan Additional Plan: # Intractable nausea vomiting secondary to gastroparesis Change orders Zofran 4 mg standing and scheduled every 6 Changed order of metoclopramide to 5 mg IV push every 6 hours Erythromycin Ethyl succinate 200 mg liquid form once a day Low residue diet No need for a repeat endoscopy at this point Other medical problems include End-stage renal disease on hemodialysis MWF Essential hypertension Coronary artery disease status post CABG Recurrent UTI on suppressive therapy with antibiotics Keflex daily Cardiac arrhythmias requiring permanent cardiac pacemaker Thank you very much for the opportunity to participate in care of this patient
[2025-01-11] MEDS: ONDANSETRON INJ 2 MG/ML INJ 2 ML 4 MG IV (20:38)
[2025-01-11] MEDS: METOCLOPRAMIDE INJ 5 MG/ML VIAL 2 ML IVP (20:38)
[2025-01-12] VITALS: BP 99/69; PULSE 81; PULSE 84; RESP 19; TEMP 36.7; O2SAT 97
[2025-01-12] MEDS: ONDANSETRON INJ 2 MG/ML INJ 2 ML 4 MG IV ×3 (00:07→12:00)
[2025-01-12] MEDS: METOCLOPRAMIDE INJ 5 MG/ML VIAL 2 ML IVP ×3 (00:07→12:00)
[2025-01-12 04:00] VITALS: BP 103/80; PULSE 77; PULSE 79; RESP 19; TEMP 36.3; O2SAT 98
[2025-01-12 05:55] VITALS: BMI 24.0
[2025-01-12 06:07] LABS: Basophils # (Auto) 0.1 Thou/mm3 (0.0-0.2); Basophils % (Auto) 1 % (0-2.5); Eosinophils # (Auto) 0.2 Thou/mm3 (0.0-0.5); Eosinophils % (Auto) 1 % (0-10); Hematocrit 36.7 % (36.0-46.0); Immature Granulocytes % (Auto) 1 % (0-0); Immature Granulocytes Auto 0.17 Thou/mm3 (0.00-0.00); Lymphocytes # (Auto) 2.7 Thou/mm3 (1.0-4.8); Lymphocytes % (Auto) 18 % (10-50); Mean Corpuscular HGB Conc 32.7 g/dl (31.0-37.0); Mean Corpuscular Hemoglobin 29.9 pg (25.0-35.0); Mean Corpuscular Volume 91 fL (80-100); Monocytes # (Auto) 1.6 Thou/mm3 (0.0-0.8); Monocytes % (Auto) 10 % (0-12); Neutrophils # (Auto) 10.5 Thou/mm3 (1.8-7.7); Neutrophils % (Auto) 69 % (37-80); Nucleated Red Blood Cell % 0 /100 WBC (0); Platelet Count 198 Thou/mm3 (140-440); RDW Standard Deviation 53.1 fL (36.4-46.3); Red Blood Count 4.02 Miln/mm3 (4.00-5.20); White Blood Count 15.1 Thou/mm3 (3.6-11.0)
[2025-01-12 06:29] LABS: Alanine Aminotransferase 8 U/L (10-49); Albumin, Serum 4.1 gm/dL (3.4-4.8); Albumin/Globulin Ratio 1.8 (1.2-2.2); Alkaline Phosphatase 76 U/L (46-116); Anion Gap 13 (7-16); Aspartate Amino Transferase 10 U/L (0-34); BUN/Creatinine Ratio 10 Ratio (12-20); Bilirubin,Total 0.4 mg/dL (0.3-1.2); Blood Urea Nitrogen 50 mg/dL (9-23); Calcium 8.5 mg/dL (8.3-10.6); Calcium (Corrected) 8.5 mg/dL (8.5-10.1); Carbon Dioxide 23.1 mMol/L (20.0-31.0); Chloride 98 mMol/L (98-107); Creatinine (Component) 5.2 mg/dL (0.6-1.3); Estimated Creatinine Clearance 10.2 mL/min (>60); Globulin 2.3 gm/dL (2.3-3.5); Glucose 122 mg/dL (74-106); Osmolality,Calculated 282 (275-295); Phosphorous 6.4 mg/dL (2.4-5.1); Potassium 3.2 mMol/L (3.4-5.1); Sodium 134 mMol/L (136-145); Total Protein 6.4 gm/dL (5.7-8.2); eGFR 9 See Note
--- NOTE | 2025-01-12 07:55 | ESDS_ITS ---
<Statement entered by Radha Ashford MD - 01/13/25 16:37> Patient was seen and examined at bedside. Agree with assessment and plan at this time - Patient's plan and care discussed with my attending, Dr. Freda Ashford MD Internal Medicine PGY-2 Planned Discharge Date 01/12/25 DS: Providers Provider Date of admission: 01/08/25 00:44 Primary care physician: DARIAN Winter([facility]) Admitting Provider: Sonny Singh MD Attending Provider on Admission: Kvng Barba MD Consults: 01/08/25 00:51 Consult to Nephrology Routine Comment: HD patient Consulting Provider: Kailey Awad 01/10/25 14:27 Referral Registered Dietitian Routine Comment: Diabetic Gastroparesis. Instructions: Recommendation for small meals once patient can tolerate please 01/11/25 12:31 Consult to Gastroenterology Routine Comment: Intractable nausea/vomiting. On reglan and zofran Consulting Provider: Luther Castorena Attending Provider on DC: Kvng Barba MD Discharging Provider: Eric Kaur MD DS: Diagnosis Problem List Completed Was Problem List Reviewed/Reconciled?: Yes Hospital Course Hospital Course Hospital course: Edita Carmona is 64 yr female with PMH of hypertension, ESRD on dialysis Monday with Dr Awad, CAD status post CABG, recurrent UTIs on daily Keflex, pacemaker placement September 2024, type 2 diabetes, hypotension on midodrine, and PRES syndrome presenting to ED due to intractable nausea and vomiting that started yesterday afternoon. Nephrology Dr Awad consulted for resuming hemodialysis. Patient admitted for management of intractable nausea and vomiting and UTI. For patient's intractable nausea and vomiting, she was started on scheduled metoclopramide 5 Mg IV every 8 hourly, Zofran Q's 8 hourly as needed and erythromycin 200 Mg p.o. daily. During hospital and nausea gradually improved. She can now tolerate both solids and liquids. GI, Dr. Castorena was consulted who agreed with these recommendations. Patient's complaint of increased frequency. Urine culture was positive for Enterococcus sensitive to ampicillin. During hospitalization patient was treated with ceftriaxone 1 g IV daily from 01/08 - 01/12 and vancomycin IV from 01/11 - 01/12. She will be discharged on a 5-day course of ampicillin. With regards to her hypertensive urgency, she was treated with labetalol 10 Mg IV after which it resolved. Upon discharge will resume valsartan 40 Mg as needed for SBP greater than 140. All patient's labs are now returned to her baseline. Patient is now clinically stable and fit for discharge to home. Discharge diagnosis: 1. Intractable nausea and vomiting?resolving 2. Diabetic gastroparesis 3. Enterococcus UTI 4. ESRD on HD M/W/F via right tunneled dialysis catheter 5. Hypertensive urgency?resolved 6. SBO ruled out 7. Abdominal wall hematoma?stable 8. CAD s/p CABG 9. Lhn-ncxfqaj-vrblstuuq diabetes type 2 10. CREST syndrome 11. Cannabis use Discharge plan: ? You have been started on medication metoclopramide for vomiting. Take 1 tablet every 8 hours as needed for nausea or vomiting. ? You have been started on medication ondansetron for vomiting. Take 1 tablet every 6 hours as needed for nausea/vomiting. - You have been started on a medication erythromycin for nausea. Take one time a day. ? You have been started on Metamucil for constipation. Take 1 capsule once per day - You have been started on an antibiotic for your UTI. Take one tablet twice a day for the next 5 days. ? We have put a hold on your calcitriol until you see your client director. ? Continue taking rest of your home medication as before ? Continue follow-up with GI, Dr. Castorena. ? Continue follow-up with client director, Dr Awad. - Follow up with your primary care physician within 1 week of discharge. If you do not have a primary care physician, please follow up with the [facility] Residents clinic ([phone]) ? If you experience any new, worsening or persistent symptoms either call your primary doctor, or dial 911 or present to the emergency department. We are grateful to be able to participate in Ms. Carmona's care. We wish her the best. Plan of care discussed with Attending Dr. Barba and PGY [address] Makeda Kaur MD PGY 1 Disclaimer: This note was dictated by speech recognition. Minor errors in accounts receivable coordinator may be present due to voice recognition software. Time Spent with Patient Time attestation: Total time spent providing and/or coordinating discharge services: Time spent: Greater than 30 minutes (38) Exam Vital Signs Temp Pulse Resp BP Pulse Ox O2 Del Method 97.4 F 77 19 103/80 98 Room Air 01/12/25 04:00 01/12/25 04:00 01/12/25 04:00 01/12/25 04:00 01/12/25 04:00 01/12/25 04:00 Narrative Exam Constitutional Alert, oriented x 3 and mild distress. Elderly female HEENT Vision grossly intact. Patent nares. Trachea midline Respiratory Chest normal on inspection and clear auscultation bilaterally. Right tunneled dialysis catheter noted. Exit site clean Cardiovascular S1 and S2 audible, RRR. No murmurs carotid bruit. No gross JVD. Abdominal Obese, large ecchymosis right lower quadrant, firm to palpation, healed surgical scar noted. Bowel sounds present Genitourinary No bladder tenderness, no flank pain. Normal to palpation Musculoskeletal Extremities tone within normal limits. No LE edema. Neurological CN II - XII grossly intact. Extremity motor and sensation grossly intact. Skin Warm, dry and intact. No apparent lesions. Psychiatric Patient has good affect, is cooperative Discharge Plan Plan Patient Disposition: HOME (Self Care) Patient condition on transfer: Stable Care Plan Goals: ? You have been started on medication metoclopramide for vomiting. Take 1 tablet every 8 hours as needed for nausea or vomiting. ? You have been started on medication ondansetron for vomiting. Take 1 tablet every 6 hours as needed for nausea/vomiting. - You have been started on a medication erythromycin for nausea. Take one time a day. ? You have been started on Metamucil for constipation. Take 1 capsule once per day - You have been started on an antibiotic for your UTI. Take one tablet twice a day for the next 5 days. ? We have put a hold on your calcitriol until you see your client director. ? Continue taking rest of your home medication as before ? Continue follow-up with GI, Dr. Castorena. ? Continue follow-up with client director, Dr Awad. - Follow up with PCP to monitor side effects of erythromycin and metoclopramide - Follow up with your primary care physician within 1 week of discharge. If you do not have a primary care physician, please follow up with the [facility] Residents clinic ([phone]) ? If you experience any new, worsening or persistent symptoms either call your primary doctor, or dial 911 or present to the emergency department. Prescriptions/Referrals Prescriptions/Med Rec: New psyllium husk [Metamucil] 0.4 gram capsule 0.4 g PO QDAY 30 Days Qty: 30 0RF metoclopramide HCl 5 mg tablet 5 mg PO Q8H PRN (Reason: nausea and vomiting) 14 Days Qty: 42 0RF erythromycin ethylsuccinate 200 mg/5 mL Suspension For Reconstitution 200 mg PO DAILY 14 Days Qty: 70 0RF ondansetron 4 mg tablet,disintegrating 4 mg PO Q6HR PRN (Reason: nausea and vomiting) 30 Days Qty: 120 0RF ampicillin 500 mg capsule 500 mg PO BID 5 Days Qty: 10 0RF Continued aspirin [Adult Low Dose Aspirin] 81 mg tablet,delayed release (DR/EC) 81 mg PO HS Patient Comments: pt states takes all meds at night atorvastatin 40 mg tablet 40 mg PO HS Patient Comments: pt states takes all meds at night clopidogrel 75 mg tablet 75 mg PO HS Patient Comments: pt states takes all meds at night Tradjenta 5 mg tablet 5 mg PO HS Patient Comments: pt states takes all meds at night midodrine 10 mg tablet 10 mg PO TID PRN (Reason: SBP under 130) duloxetine [Cymbalta] 30 mg capsule,delayed release(DR/EC) 30 mg PO BID B complex-vitamin C-folic acid 0.8 mg tablet 1 tab PO QDAY Patient Comments: renavite 60/300-6-8 ascorbate calcium (vitamin C) 500 mg tablet 1 g PO HS Patient Comments: pt states takes all meds at night valsartan 40 mg Tablet 40 mg PO QDAY PRN (Reason: SBP >140) Qty: 30 3RF meclizine 25 mg tablet 25 mg PO PRN PRN (Reason: dizziness) Held calcitriol 0.25 mcg Capsule 0.5 mcg PO .qhs Hold Instructions: Hold until you see your PCP Discontinued metoclopramide HCl [Reglan] 5 mg tablet 5 mg PO PRN PRN (Reason: nausea) alprazolam 1 mg tablet 1 mg PO BID PRN (Reason: anxiety) Referrals: Kailey Awad MD [Physician] - Kev SUN)Catalina FNP [Primary Care Provider] - Luther Castorena MD [Physician] - Patient/Caregiver Discharge Instructions Discharge Activity: activity as tolerated Education Materials: Gastroparesis, Nausea Vomit Control-Cancer Care, ED Diet for Vomiting or ... Print Language: Romanian Stand Alone Forms: Lou Award Info., Patient Portal Info Letter Discharge Order Discharge Orders: Discharge (Routine); Ordered 01/12/25 Ordered By: Aubrie Saab Quality Discharge Quality Measures VTE prophylaxis MD Attestestation MD Attestation I have examined the patient, reviewed labs and imaging findings, discussed the case with the resident(s), and reviewed entered orders. I agree with the plan of care as outlined in this note. Time Spent: [address] Freda MD
[2025-01-12 08:00] VITALS: BP 126/78; PULSE 73; PULSE 88; RESP 17; TEMP 36.4; O2SAT 95
[2025-01-12] MEDS: POTASSIUM CHL 10 mEq IVPB 10 MEQ/100 ML BAG 100 MEQ IV (08:35)
[2025-01-12] MEDS: ASPIRIN 300 MG SUPP 150 MG PR (08:36)
[2025-01-12] MEDS: PANTOPRAZOLE INJ 40 MG VIAL IVP (08:36)
[2025-01-12] MEDS: PSYLLIUM 1 PKT PACKET PO (08:37)
[2025-01-12] MEDS: SENNA TABLET 1 TAB PO (08:37)
[2025-01-12] MEDS: ERYTHROMYCIN E-SUCC SUSP 200 MG/5 ML PO (08:38)
[2025-01-12] MEDS: Ampicillin Inj 1,000 MG in SODIUM CHLORIDE 0.9% (Popper) 50 ML 100 MG IV (10:45)
[2025-01-12] MEDS: POTASSIUM CHLORIDE 10% 20 MEQ/15 ML UDC 8 MEQ PO (10:55)
[2025-01-12 12:00] VITALS: PULSE 80
[2025-01-12 13:30] VITALS: BP 96/59; PULSE 80; RESP 20; TEMP 36.4; O2SAT 93
[2025-01-12 16:00] VITALS: BP 98/59; PULSE 76; RESP 15; TEMP 37; O2SAT 95
--- NOTE | 2025-01-12 16:19 | PC.NURSE ---
[facility] 0900 to 1600.
--- NOTE | 2025-01-12 21:34 | ESPR_ITS ---
Documentation for date of: 01/12/25 Subjective Subjective Interval history: Late entry for the note Patient nausea vomiting has improved Should be sent home on Zofran Reglan as well as erythromycin Ethyl succinate Exam Vital Signs Temp Pulse Resp BP Pulse Ox O2 Del Method O2 Flow Rate 98.6 F 76 15 98/59 L 95 Humidified Nasal Cannula 5 01/12/25 16:00 01/12/25 16:00 01/12/25 16:00 01/12/25 16:00 01/12/25 16:00 01/12/25 16:00 01/12/25 16:00 Objective Labs 01/12/25 05:31 01/12/25 05:31 Labs: Laboratory Results - last 24 hr 01/12/25 05:31 WBC 15.1 H RBC 4.02 Hgb 12.0 Hct 36.7 MCV 91 MCH 29.9 MCHC 32.7 RDW Std Deviation 53.1 H Plt Count 198 D Neut % (Auto) 69 Lymph % (Auto) 18 [place] % (Auto) 10 Eos % (Auto) 1 Baso % (Auto) 1 Neut # (Auto) 10.5 H Lymph # (Auto) 2.7 [place] # (Auto) 1.6 H Eos # (Auto) 0.2 Baso # (Auto) 0.1 Immature Gran # (Auto) 0.17 H Absolute Nucleated RBC 0.00 Immature Gran % 1 H Nucleated RBC % 0 Sodium 134 L Potassium 3.2 L Chloride 98 Carbon Dioxide 23.1 Anion Gap 13 BUN 50 H Creatinine 5.2 H* D Estim Creat Clear Calc 10.2 L eGFR 9 L* BUN/Creatinine Ratio 10 L Glucose 122 H Calculated Osmolality 282 Calcium 8.5 Corrected Calcium 8.5 Phosphorus 6.4 H Magnesium 2.0 Total Bilirubin 0.4 AST 10 ALT 8 L Alkaline Phosphatase 76 Total Protein 6.4 Albumin 4.1 D Globulin 2.3 Albumin/Globulin Ratio 1.8 Random Vancomycin 15.0 Impressions Impression: Gastroparesis Okay to discharge patient home to be followed as an outpatient Assessment & Plan A&P Narrative # Intractable nausea vomiting secondary to gastroparesis Change orders Zofran 4 mg standing and scheduled every 6 Changed order of metoclopramide to 5 mg IV push every 6 hours Erythromycin Ethyl succinate 200 mg liquid form once a day Low residue diet No need for a repeat endoscopy at this point Other medical problems include End-stage renal disease on hemodialysis MWF Essential hypertension Coronary artery disease status post CABG Recurrent UTI on suppressive therapy with antibiotics Keflex daily Cardiac arrhythmias requiring permanent cardiac pacemaker Thank you very much for the opportunity to participate in care of this patient Time Spent With Patient Time: Total time spent is greater than 50% in coordination of care (as documented) at patient's floor/unit and/or counseling patient:
== END 2025-01-12 13:23 | disposition home or self-care (01) | DRG 689 ==
LOC: SERX 01-08 00:07 → SERHOLD 01-08 01:24 → S2NX 01-08 04:07
PROVIDERS: Registered Nurse General Practice; Student in an Organized Health Care Education/Training Program; Admitting Provider Internal Medicine; Emergency Provider Emergency Medicine; PCP Nurse Practitioner Primary Care; Visit Provider Student in an Organized Health Care Education/Training Program
DX: N39.0 Urinary tract infection, site not specified (principal); N18.6 End stage renal disease; I12.0 Hypertensive chronic kidney disease with stage 5 chronic kidney disease or end stage renal disease; E11.40 Type 2 diabetes mellitus with diabetic neuropathy, unspecified; E11.22 Type 2 diabetes mellitus with diabetic chronic kidney disease; I16.0 Hypertensive urgency; I25.10 Atherosclerotic heart disease of native coronary artery without angina pectoris; E11.43 Type 2 diabetes mellitus with diabetic autonomic (poly)neuropathy; E11.319 Type 2 diabetes mellitus with unspecified diabetic retinopathy without macular edema; B95.2 Enterococcus as the cause of diseases classified elsewhere; K31.84 Gastroparesis; K45.8 Other specified abdominal hernia without obstruction or gangrene; M34.1 CR(E)ST syndrome; S30.1XXA Contusion of abdominal wall, initial encounter; Z95.0 Presence of cardiac pacemaker; T46.5X6A Underdosing of other antihypertensive drugs, initial encounter; Z79.02 Long term (current) use of antithrombotics/antiplatelets; Z87.440 Personal history of urinary (tract) infections; Z79.82 Long term (current) use of aspirin; Z95.1 Presence of aortocoronary bypass graft; Z79.4 Long term (current) use of insulin; Z79.84 Long term (current) use of oral hypoglycemic drugs; Z79.899 Other long term (current) drug therapy; Z90.710 Acquired absence of both cervix and uterus; Z91.148 Patient's other noncompliance with medication regimen for other reason; Z99.2 Dependence on renal dialysis; Z87.19 Personal history of other diseases of the digestive system
CPT/HCPCS: 36415; 70450; 74176; 76705; 80053; 80202; 80307; 81001; 83615; 83735; 83880; 84100; 84484; 85025; 85610; 85730; 87040; 87077; 87081; 87086; 87186; 93005; 96372; 96374; 96375; 99285; J0131; J0360; J0696; J0780; J1643; J1644; J1815; J2405; J2470; J2765; J3370; J3480; J3490; J7040; P9047; A9270; J1920

== ENCOUNTER 2025-02-18 15:04 | Inpatient (IN) | payer MEDICARE, MEDICAID, SELFPAY ==
[2025-02-18] VITALS (15 sets, daily range): BP systolic 130–211; BP diastolic 66–113; PULSE 74–111; RESP 12–97; TEMP 35–36.4; O2SAT 95–99; BMI 32.3
--- NOTE | 2025-02-18 15:14 | PD.EDADULT ---
ED General RME/HPI General Chief complaint: Weakness Stated complaint: WEAKNESS Time Seen by Provider: 02/18/25 15:44 Arrival date/time: 02/18/25 15:04 Limitations: no limitations RME / HPI RME / HPI narrative: DR. BRITO MAIN ED EVALUATION: 64 year old female presents to the Emergency Department [facility] with complaint of generalized weakness, family called. Per family, she is weak and talking less than she does. Family reported to EMS that patient had not taken her medications in the last couple of days. Per EMS, she talked to them en route and was oriented x3. PMHx: Type 2 diabetes with nephropathy, neuropathy, retinopathy, hypertension, ESRD on dialysis every Monday, Monday, and Monday, status post CABG in 2024, history of esophageal ulcers, history of nausea and vomiting with gastroparesis, hyperlipidemia, takes ASA 81 mg, Social Hx: No tobacco, alcohol, or substance use. Related Data Home Medications ?Medication ?Instructions ?Recorded ?Confirmed calcitriol 0.25 mcg capsule 0.5 mcg PO .qhs 09/15/23 01/08/25 Held on 01/11/25. Instructions: Hold until you see your PCP aspirin 81 mg tablet,delayed 81 mg PO HS 11/28/24 02/18/25 release (Adult Low Dose Aspirin) atorvastatin 40 mg tablet 40 mg PO HS 11/28/24 01/08/25 clopidogrel 75 mg tablet 75 mg PO HS 11/28/24 01/08/25 duloxetine 30 mg capsule,delayed 30 mg PO BID 11/28/24 01/08/25 release (Cymbalta) linagliptin 5 mg tablet (Tradjenta) 5 mg PO HS 11/28/24 01/08/25 midodrine 10 mg tablet 10 mg PO TID PRN SBP under 130 11/28/24 01/08/25 ascorbate calcium (vitamin C) 500 1 g PO HS 12/01/24 01/08/25 mg tablet vitamin B complex-vitamin C-folic 1 tab PO QDAY 12/01/24 01/08/25 acid 0.8 mg tablet meclizine 25 mg tablet 25 mg PO PRN PRN dizziness 01/08/25 01/08/25 Previous Rx's ?Medication ?Instructions ?Recorded valsartan 40 mg tablet 40 mg PO QDAY PRN SBP >140 #30 tabs 12/02/24 Allergies Allergy/AdvReac Type Severity Reaction Status Date / Time No Known Allergies Allergy Verified 01/07/25 20:14 Review of Systems Review of Systems Systems Reviewed: All systems reviewed, normal except as documented Past Medical History Past Medical History NEUROLOGIC: Positive Neurological Disorders, Cerebrovascular Accident (10 YEARS AGO - NO RESIDUAL EFFECTS) and Seizures CARDIAC: Positive Cardiac Disorders, Hypercholesterolemia, Hypertension and Hypotension GASTROINTESTINAL: Positive Gastrointestinal Disorders and Gastroesophageal Reflux Disease GENITOURINARY: Positive Genitourinary Disorders, Renal Disease and Dialysis ENDOCRINE: Positive Endocrine Disorders and Diabetes Mellitus Type 2 HEMATOLOGIC: Negative Sickle Cell Disease OTHER HISTORY: Positive Chicken Pox, Measles and Mumps; Negative Blood Transfusion Reaction Family History FAMILY HISTORY: Positive Family Cancer Surgical History SURGICAL: Positive Open Heart Surgery, Coronary Artery Bypass Graft, Pacemaker, Abdominal Surgery, Hysterectomy and Section Social History SMOKING STATUS: Never smoker SUBSTANCE USE: does not use ALCOHOL: Never ED Exam General Limitations: Present no limitations General appearance: Present alert (and oriented x3), in no apparent distress and other (mild lethargic, eyes are open; she has difficulty answering questions but tries) Head Head exam: Present atraumatic, normocephalic and normal inspection Eye Eye exam: Present normal appearance, PERRL and EOMI ENT ENT exam: Present normal exam, normal oropharynx and mucous membranes moist Neck Neck exam: Present normal inspection, full ROM and trachea midline Chest Chest inspection: Present symmetric chest wall rise and other (Right upper chest dialysis catheter in place) Respiratory Respiratory exam: Present normal lung sounds bilaterally Cardiovascular Cardiovascular exam: Present regular rate, normal rhythm and normal heart sounds Abdominal Exam Abdominal exam: Present soft and normal bowel sounds Extremities Exam Extremities exam: Present normal inspection and full ROM Back Exam Back exam: Present normal inspection and full ROM Neurological Exam Neurological exam: Present alert and oriented X3 Psychiatric Psychiatric exam: Present normal affect and normal mood Skin Skin exam: Present warm, dry, intact and normal color Course Course Course Narrative: 1715: Stroke alert initiated. Orders made at this time are congruent stroke protocol. Quality Measures none Orders Category Date Time Status Bedside Blood Glucose NOW Care 02/18/25 15:44 Active Bedside Blood Glucose NOW Care 02/18/25 17:12 Active Movie Writer NOW Care 02/18/25 15:45 Active Continuous Pulse Oximetry NOW Care 02/18/25 15:44 Completed Continuous Pulse Oximetry NOW Care 02/18/25 17:12 Completed EKG (ED ONLY) *Do not use* NOW Care 02/18/25 15:45 Completed In and Out Catheter NEEDED Care 02/18/25 17:12 Active Insert IV NOW Care 02/18/25 15:45 Active NIH Stroke Scale now Care 02/18/25 17:12 Active NPO NOW Care 02/18/25 15:45 Active NPO NOW Care 02/18/25 17:12 Active Neuro Check Q15MIN Care 02/18/25 17:12 Active Nurse Swallow Screen x1 Care 02/18/25 17:12 Active Consult to Neurology / Tele-Neurology Routine Cons 02/18/25 17:[address] angio stroke protocol Stat Exams 02/18/25 17:[address] head/brain wo con Stat Exams 02/18/25 15:[address] stroke protocol Stat Exams 02/18/25 17:12 Ordered EKG (ED Only) Stat Exams 02/18/25 15:44 Draft Acetaminophen Stat Lab 02/18/25 16:29 Completed Alcohol, Blood Medical Stat Lab 02/18/25 16:29 Completed B-Type Natriuretic Peptide Stat Lab 02/18/25 16:29 Completed Blood Culture (Lab) Stat Lab 02/18/25 16:29 Received CBC Stat Lab 02/18/25 16:29 Completed Comprehensive Metabolic Panel Stat Lab 02/18/25 16:29 Completed Drug Screen,Urine Stat Lab 02/18/25 17:40 Received Lactic Acid [Lactate (Lactic Acid)] Stat Lab 02/18/25 16:29 Completed Magnesium Stat Lab 02/18/25 16:29 Completed Partial Thromboplastin Time Stat Lab 02/18/25 16:29 Completed Procalcitonin Stat Lab 02/18/25 16:29 Completed Prothrombin Time with INR Stat Lab 02/18/25 16:29 Completed Salicylate Stat Lab 02/18/25 16:29 Completed Troponin I Stat Lab 02/18/25 16:29 Completed Urinalysis Stat Lab 02/18/25 17:40 Received Urine Culture Stat Lab 02/18/25 17:40 Received Piper/Tazo 3.375 gm Premix [Zosyn] Med 02/18/25 15:48 Discontinued 3.375 gm in 50 ml IV X1 Sodium Chloride 0.9% 1000 ml [Ns] 1,000 ml Med 02/18/25 17:15 Active IV Q10H Sodium Chloride 0.9% 500 ml [Ns] 500 ml Med 02/18/25 15:44 Discontinued IV 500 mls/hr Oxygen Delivery NOW RT 02/18/25 15:45 Active Oxygen Delivery NOW RT 02/18/25 17:12 Active Vital Signs Vital signs: Vital Signs Pulse Rate 97 02/18/25 15:09 Respiratory Rate 20 02/18/25 15:09 Blood Pressure 207/106 H 02/18/25 15:09 Pulse Oximetry (%) 97 02/18/25 15:09 Oxygen Delivery Method Room Air 02/18/25 15:09 Discharge Plan Prescriptions/Referrals Prescriptions/Med Rec: No Action calcitriol 0.25 mcg Capsule 0.5 mcg PO .qhs aspirin [Adult Low Dose Aspirin] 81 mg tablet,delayed release (DR/EC) 81 mg PO HS Patient Comments: pt states takes all meds at night atorvastatin 40 mg tablet 40 mg PO HS Patient Comments: pt states takes all meds at night clopidogrel 75 mg tablet 75 mg PO HS Patient Comments: pt states takes all meds at night Tradjenta 5 mg tablet 5 mg PO HS Patient Comments: pt states takes all meds at night midodrine 10 mg tablet 10 mg PO TID PRN (Reason: SBP under 130) duloxetine [Cymbalta] 30 mg capsule,delayed release(DR/EC) 30 mg PO BID B complex-vitamin C-folic acid 0.8 mg tablet 1 tab PO QDAY Patient Comments: renavite 60/300-6-8 ascorbate calcium (vitamin C) 500 mg tablet 1 g PO HS Patient Comments: pt states takes all meds at night valsartan 40 mg Tablet 40 mg PO QDAY PRN (Reason: SBP >140) Qty: 30 3RF meclizine 25 mg tablet 25 mg PO PRN PRN (Reason: dizziness) Referrals: Catalina Angulo FNP ([facility]) [Primary Care Provider] - In 1 week Problem List Clinical Impression: Weakness Patient/Caregiver Discharge Instructions Print Language: Greenlandic MDM Narrative MDM hospital course: IVicky am scribing for and in the presence of Dr. Brito. Clinical Information Provided by patient, EMS and family Medical Records Reviewed [facility] and EMS Meds/Rx Considered, not Ordered None Labs/Rad/Tests considered, not Ordered None Chronic Illness/Social Conditions Add or document further as needed: PMHx: Type 2 diabetes with nephropathy, neuropathy, retinopathy, hypertension, ESRD on dialysis every Monday, Monday, and Monday, status post CABG in 2024, history of esophageal ulcers, history of nausea and vomiting with gastroparesis, hyperlipidemia, takes ASA 81 mg, Social Hx: No tobacco, alcohol, or substance use. EKG EKG Interpretation narrative: My interpretation: EKG performed at 1636 hours, sinus rhythm, rate 92, no acute changes, no STEMI Imaging Radiology reports / interpretation(s): Procedure(s): CT head/brain wo con Accession Number(s): [id number] cc: Jesús Brito MD; Catalina Angulo ([facility]); Dain Quick MD~ Examination: CT brain head without contrast. 2-D sagittal coronal reconstructions Date and time of exam:February 18, 2025 7011 hours Comparison January 07, 2025 INDICATIONS: Stroke alert, onset focal neurologic deficit including altered mental status today CTDI: vol (mGy):48 DLP: (mGycm):920 Technique: Multiple CT axial sections of the brain have been obtained, 5 mm slice thickness. Contrast has not been administered. 2-D sagittal, coronal reconstructions have been obtained Low dose protocols were performed. One or more of the following dose reduction techniques were used; automated exposure control, adjustment of the mA and/or KV according to patient size, use of iterative reconstruction technique. Findings: No significant ventricular enlargement. 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 No mass effect or midline shift Basal cisterns are not remarkable. Fourth ventricle is midline. Cranial vault intact. Impression: Negative for acute hemorrhage, mass effect or midline shift Dictated By: Dain Quick MD Medication Administration(s) Medication Administration History Sodium Chloride (Ns) 1,000 mls @ 100 mls/hr IV Q10H ALEX Stop: 03/20/25 17:14 Discontinued Medications Sodium Chloride (Ns) 500 mls @ 500 mls/hr IV .Q1H ONE Stop: 02/18/25 16:43 Last Admin: 02/18/25 16:39 Dose: 500 mls/hr Documented By: SYD Piperacillin/Tazobactam/Dextrose (Zosyn) 3.375 gm in 50 mls @ 100 mls/hr IV X1 ONE Stop: 02/18/25 16:17 Last Infusion: 02/18/25 17:11 Dose: Infused Documented By: Admin: 02/18/25 16:38 Dose: 100 mls/hr Documented By: SYD Diagnosis Differential diagnosis: TIA, CVA, dehydration Most likely dx, and/or detailed dx discussion: No official diagnoses at this time, still pending diagnostic tests. Patient signout to the night patrol inspector provider. Dispositon Disposition: other (No final disposition plan at this time, still pending diagnostic tests. Patient signout to the night patrol inspector provider. ) Disposition comments: 1800: Patient was signed out to Dr. Torres. Past medical, surgical, social and family history reviewed. Vitals and home medications reviewed. Results and treatment plan discussed. They will assume the care of the patient at this time and will follow the patient, pending CTA, remainder of labs, and final disposition.
--- NOTE | 2025-02-18 15:44 | EKG_ITS ---
[facility] Test Date: 2025-02-18 Pat Name: KAREN BARNES Department: Room: - Gender: Female Second Steward: : 1960 Requested By: Jesús Foley Order Number: [id number] Reading MD: Jesús Foley Measurements Intervals [place] Rate: 92 P: 77 NV: 168 QRS: -15 QRSD: 102 T: 109 QT: 359 QTc: 445 Interpretive Statements SINUS RHYTHM LEFT VENTRICULAR HYPERTROPHY AND ST-T CHANGE [VOLTAGE CRITERIA PLUS ST/T ABNORMALITY] POSSIBLE LATERAL MYOCARDIAL INFARCTION , OF INDETERMINATE AGE [30 ms Q WAVE IN I/aVL/V5/V6] Compared to ECG 01/11/2025 08:17:12 Incomplete right bundle-branch block no longer present ST (T wave) deviation still present Myocardial infarct finding still present /store/S0/[id number].pdf
--- NOTE | 2025-02-18 15:46 | XR_ITS ---
Examination: CT brain head without contrast. 2-D sagittal coronal reconstructions Date and time of exam:February 18, 2025 7011 hours Comparison January 07, 2025 INDICATIONS: Stroke alert, onset focal neurologic deficit including altered mental status today CTDI: vol (mGy):48 DLP: (mGycm):920 Technique: Multiple CT axial sections of the brain have been obtained, 5 mm slice thickness. Contrast has not been administered. 2-D sagittal, coronal reconstructions have been obtained Low dose protocols were performed. One or more of the following dose reduction techniques were used; automated exposure control, adjustment of the mA and/or KV according to patient size, use of iterative reconstruction technique. Findings: No significant ventricular enlargement. 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 No mass effect or midline shift Basal cisterns are not remarkable. Fourth ventricle is midline. Cranial vault intact. Impression: Negative for acute hemorrhage, mass effect or midline shift
[2025-02-18 16:38] LABS: Lactate (Lactic Acid) 1.9 mMol/L (0.4-2.0)
[2025-02-18] MEDS: PIPER/TAZO 3.375 GM PREMIX 3.375 GM/50 ML BAG IV (16:38)
[2025-02-18] MEDS: SODIUM CHLORIDE 0.9% 500 ML 500 ML IV (16:39)
[2025-02-18 16:41] LABS: Basophils # (Auto) 0.1 Thou/mm3 (0.0-0.2); Basophils % (Auto) 0 % (0-2.5); Eosinophils % (Auto) 0 % (0-10); Hematocrit 31.3 % (36.0-46.0); Hemoglobin 10.4 g/dL (12.0-16.0); Immature Granulocytes % (Auto) 1 % (0-0); Immature Granulocytes Auto 0.22 Thou/mm3 (0.00-0.00); Lymphocytes # (Auto) 1.7 Thou/mm3 (1.0-4.8); Lymphocytes % (Auto) 11 % (10-50); Mean Corpuscular HGB Conc 33.2 g/dl (31.0-37.0); Mean Corpuscular Hemoglobin 29.4 pg (25.0-35.0); Mean Corpuscular Volume 88 fL (80-100); Monocytes # (Auto) 0.4 Thou/mm3 (0.0-0.8); Monocytes % (Auto) 3 % (0-12); Neutrophils # (Auto) 13.6 Thou/mm3 (1.8-7.7); Neutrophils % (Auto) 85 % (37-80); Nucleated Red Blood Cell % 0 /100 WBC (0); Platelet Count 283 Thou/mm3 (140-440); RDW Standard Deviation 56.5 fL (36.4-46.3); Red Blood Count 3.54 Miln/mm3 (4.00-5.20)
--- NOTE | 2025-02-18 16:59 | PC.NURSE ---
PER DR. BRITO, NO STROKE ALERT
[2025-02-18 17:08] LABS: Acetaminophen < 2.0 mcg/mL (10.0-20.0); Alanine Aminotransferase 17 U/L (10-49); Albumin, Serum 4.6 gm/dL (3.4-4.8); Albumin/Globulin Ratio 1.8 (1.2-2.2); Alcohol, Blood Medical < 3.0 mg/dL (0-10.0); Alkaline Phosphatase 100 U/L (46-116); Anion Gap 10 (7-16); Aspartate Amino Transferase 18 U/L (0-34); BUN/Creatinine Ratio 13 Ratio (12-20); Bilirubin,Total 0.3 mg/dL (0.3-1.2); Blood Urea Nitrogen 38 mg/dL (9-23); Calcium 9.9 mg/dL (8.3-10.6); Calcium (Corrected) 9.9 mg/dL (8.5-10.1); Carbon Dioxide 25.7 mMol/L (20.0-31.0); Chloride 102 mMol/L (98-107); Estimated Creatinine Clearance 16.4 mL/min (>60); Globulin 2.5 gm/dL (2.3-3.5); Glucose 234 mg/dL (74-106); Osmolality,Calculated 292 (275-295); Potassium 4.7 mMol/L (3.4-5.1); Procalcitonin 0.25 ng/ml (0.0-0.49); Salicylate < 3.0 mg/dL; Sodium 138 mMol/L (136-145); Total Protein 7.1 gm/dL (5.7-8.2); Troponin I < 0.020 ng/mL (0.0-0.045); eGFR 17 See Note
[2025-02-18 17:10] LABS: INR 0.9 (0.9-1.3); Partial Thromboplastin Time 25.4 Seconds (22.0-36.0); Prothrombin Time 10.3 Seconds (9.0-12.2)
--- NOTE | 2025-02-18 17:12 | XR_ITS ---
Examination: CTA carotids with intravenous contrast CTA brain, head with intravenous contrast. 2-D sagittal, coronal reconstructions. 3-D reconstructions. Exam date and time: February 18, 2025, 1722 hours INDICATIONS: Stroke alert today, onset generalized body weakness slurred speech beginning 10:30 AM CTDI: vol (mGy) 11.3 DLP: (mGycm) 442 Technique: Multiple CTA axial brain, head carotid images post intravenous contrast injection 100 cc, Isovue-370. 2-D sagittal, coronal reconstructions. 3-D reconstructions, 3-D post processing including vascular maximum intensity projection images. Low dose protocols were performed. One or more of the following dose reduction techniques were used; automated exposure control, adjustment of the mA and/or KV according to patient size, use of iterative reconstruction technique. Findings: 18 mm right thyroid nodule Fluid distended esophagus 10-20% stenosis origin right internal carotid artery Heavy calcification left carotid bifurcation origin left internal carotid artery, 40-60% stenosis origin left internal carotid artery, suspicious for soft thrombus in the origin left internal carotid artery sagittal image 61 Mid and distal left internal carotid artery intact Minimally dominant codominant vertebral arteries with no critical stenoses No cerebral large vessel arterial occlusions IMPRESSION: 40-60% stenosis origin left internal carotid artery. Suspicious for soft thrombus origin left internal carotid artery No cerebral large vessel arterial occlusions 18 mm right thyroid nodule. Fluid distended esophagus, clinical correlation advised
--- NOTE | 2025-02-18 17:15 | PC.NURSE ---
NIHSS WAS COMPLETED. SCORE INCREASED FROM 13 TO 18 DURING ASSESSMENT. CONVO WITH FAMILY STATES IT IS NOT PTS BASELINE. PROVIDER WAS NOTIFIED OF NIHSS CHANGE, NO ORDERS GIVEN.
[2025-02-18 17:49] LABS: B-Type Natriuretic Peptide 350 pg/mL (0-100)
--- NOTE | 2025-02-18 18:06 | ESCONSULT_ITS ---
Tele Neuro Consultation Consultation Date 02/18/25 Most Recent Vital Signs Last Vital Signs Pulse 92 02/18/25 17:01 Resp 18 02/18/25 17:01 BP 207/106 H 02/18/25 15:09 Pulse Ox 97 02/18/25 15:09 O2 Del Method Room Air 02/18/25 15:09 Laboratory-Coagulation Panel PT 10.3 Seconds (9.0-12.2) 02/18/25 16:29 INR 0.9 (0.9-1.3) 02/18/25 16:29 APTT 25.4 Seconds (22.0-36.0) 02/18/25 16:29 Consultation Narrative [facility] Tele[facility]urology Consult [facility] Patient Name:???Edita Carmona Date of :???1960 Identification Number:??? Date of Service:???02/18/2025 17:17:00 Diagnosis:?G93.49 - Encephalopathy Multifactorial Impression: ?64 year old woman with history of prior stroke, PRES, CAD s/p CABG, pacemaker, ESRD on dialysis presenting with lethargy since waking up this afternoon from a nap. Exam shows somnolent patient only partially interactive with exam but no focal deficits. ? ?CT head with no acute findings. ? ?She does have neutrophilic leukocytosis and a history of recurrent UTIs. ? ?Differential diagnosis includes CVA, medication effect, infectious or toxometabolic encephalopathy. ? ?She is out of the window for thrombolytics. Recommend admission for MRI brain if possible with pacemaker, repeat CT head tomorrow if not. Continue dual antiplatelet therapy. Our recommendations are outlined below. Recommendations: ? Stroke/Telemetry Floor ? Neuro Checks (Q2) ? Bedside Swallow Eval ? DVT Prophylaxis ? IV Fluids, Normal Saline ? Head of Bed 30 Degrees ? Euglycemia and Avoid Hyperthermia (PRN Acetaminophen) ? Initiate dual antiplatelet therapy with Aspirin 81 mg daily and Clopidogrel 75 mg daily. ? Antihypertensives PRN if Blood pressure is greater than 220/120 or there is a concern for End organ damage/contraindications for permissive HTN. If blood pressure is greater than 220/120 give labetalol PO or IV or Vasotec IV with a goal of 15% reduction in BP during the first 24 hours. Advanced Imaging:Advanced imaging has been ordered. Results pending. Metrics: Last Known Well: 02/18/2025 12:30:00 Dispatch Time: 02/18/2025 17:17:00 Arrival Time: 02/18/2025 15:45:00 Initial Response Time: 02/18/2025 17:25:49Symptoms: lethargy. Initial patient interaction: 02/18/2025 17:32:58 NIHSS Assessment Completed: 02/18/2025 17:42:18Patient is not a candidate for Thrombolytic. Thrombolytic Medical Decision: 02/18/2025 17:42:20Patient was not deemed candidate for Thrombolytic because of following reasons: LKW outside 4.[address] Head: I personally reviewed all the CT images that were available to me and it showed: no acute hemorrhage; there is an area of hypodensity in the right cerebellum consistent with prior stroke. ED Physician not notified of diagnostic impression and management plan because Attending was in with another patient, will try back later History of Present Illness:Patient is a 64 year old Female. Patient was brought by EMS for symptoms of lethargy. 64 year old woman presenting with lethargy. She was initially having weakness since about 9:30 in the setting of possible overdose on baclofen. Then when family woke her up at 12:30, she was very lethargic. LKW 10:15 when she went to take a nap. She took two baclofen 20 mg overnight for severe back pain, then about 90 minutes later, she took half a [place] at about 2:30 am. ? Past Medical History: ?Hypertension ?Diabetes Mellitus ?Coronary Artery Disease ?Stroke Other PMH:? ESRD on dialysis, pacemaker in place. Prior PRES Medications: No Anticoagulant use? Antiplatelet use:?Yes?aspirin 81 mg, clopidogrel Reviewed EMR for current medications Allergies:? Reviewed Social History: Smoking: No Alcohol Use: No Family History: There is no family history of premature cerebrovascular disease pertinent to this consultation ROS : 14 Points Review of Systems was performed and was negative except mentioned in HPI. Past Surgical History: There Is No Surgical History Contributory To Today?s Visit ? Examination: BP(187/101),?Pulse(106), 1A: Level of Consciousness - Alert; keenly responsive?+ 0 1B: Ask Month and Age - 1 Question Right?+ 1 1C: Blink Eyes & Squeeze Hands - Performs 1 Task?+ 1 2: Test Horizontal Extraocular Movements - Normal?+ 0 3: Test Visual [place] - No Visual Loss?+ 0 4: Test Facial Palsy (Use Grimace if Obtunded) - Normal symmetry?+ 0 5A: Test Left Arm Motor Drift - No Drift for 10 Seconds?+ 0 5B: Test Right Arm Motor Drift - No Drift for 10 Seconds?+ 0 6A: Test Left Leg Motor Drift - No Drift for 5 Seconds?+ 0 6B: Test Right Leg Motor Drift - No Drift for 5 Seconds?+ 0 7: Test Limb Ataxia (FNF/Heel-Peck) - No Ataxia?+ 0 8: Test Sensation - Normal; No sensory loss?+ 0 9: Test Language/Aphasia - Mild-Moderate Aphasia: Some Obvious Changes, Without Significant Limitation?+ 1 10: Test Dysarthria - Normal?+ 0 11: Test Extinction/Inattention - No abnormality?+ 0 NIHSS Score:?3 Pre-Morbid Modified Frances Scale:2 Points = Slight disability; unable to carry out all previous activities, but able to look after own affairs without assistance This consult was conducted in real time using interactive audio and video technology. Patient was informed of the technology being used for this visit and agreed to proceed. Patient located in hospital and provider located at home/office setting. Patient is being evaluated for possible acute neurologic impairment and high probability of imminent or life-threatening deterioration. I spent total of 35 minutes providing care to this patient, including time for face to face visit via telemedicine, review of medical records, imaging studies and discussion of findings with providers, the patient and/or family. Dr Tatianna Laughlin [facility] For Inpatient follow-up with [facility] physician please call [facility] at . As we are not an outpatient service for any post hospital discharge needs please contact the hospital for assistance. If you have any questions for the [facility] physicians or need to reconsult for clinical or diagnostic changes please contact us via [facility] at .
[2025-02-18 18:08] LABS: Collection Type, Urine Clean Catch
--- NOTE | 2025-02-18 18:17 | EDNOTE_ITS ---
Emergency Room Addendum Addendum Narrative: 1800: Care assumed from Dr. Peter (emergency physician). Past medical, surgical, social and family history reviewed. Vitals and home medications reviewed. Results and treatment plan discussed. They will assume the care of the patient at this time and will follow the patient, pending Head/Neck CTA and labs. The following addendum documentation note is intended to reflect any pending information, findings, or radiology results not included in the patient?s initial chart by the previous shift scribe. RADIOLOGY Head/Neck CTA: Patient: KAREN BARNES. Record#: [id number] Birthdate: 1960 Age/Sex: 64 / F Location: [facility] Attending Dr: Ordering Physician: Jesús Peter MD Date of Service: 02/18/25 Procedure(s): CT angio stroke protocol Accession Number(s): [id number] cc: Jesús Peter MD; Catalina Angulo (ARI[facility]) MANAGER IMPLEMENTATION; Dain Quick MD~ Examination: CTA carotids with intravenous contrast CTA brain, head with intravenous contrast. 2-D sagittal, coronal reconstructions. 3-D reconstructions. Exam date and time: February 18, 2025, 1722 hours INDICATIONS: Stroke alert today, onset generalized body weakness slurred speech beginning 10:30 AM CTDI: vol (mGy) 11.3 DLP: (mGycm) 442 Technique: Multiple CTA axial brain, head carotid images post intravenous contrast injection 100 cc, Isovue-370. 2-D sagittal, coronal reconstructions. 3-D reconstructions, 3-D post processing including vascular maximum intensity projection images. Low dose protocols were performed. One or more of the following dose reduction techniques were used; automated exposure control, adjustment of the mA and/or KV according to patient size, use of iterative reconstruction technique. Findings: 18 mm right thyroid nodule Fluid distended esophagus 10-20% stenosis origin right internal carotid artery Heavy calcification left carotid bifurcation origin left internal carotid artery, 40-60% stenosis origin left internal carotid artery, suspicious for soft thrombus in the origin left internal carotid artery sagittal image 61 Mid and distal left internal carotid artery intact Minimally dominant codominant vertebral arteries with no critical stenoses No cerebral large vessel arterial occlusions IMPRESSION: 40-60% stenosis origin left internal carotid artery. Suspicious for soft thrombus origin left internal carotid artery No cerebral large vessel arterial occlusions 18 mm right thyroid nodule. Fluid distended esophagus, clinical correlation advised Dictated By: Dain Quick MD Signed By: <Electronically signed by Dain Quick MD in OV> 02/18/25 1806 1923: Blood pressure 204/123 and HR of 107. 2123: Spoke with Carlos Garcia. Denied patient for transfer due to not having the necessary provider. 2137: Transfer nurse for [facility] for transfer. Reviewed the patient?s HPI, PMHx, lab and/or radiology results. Treatment plan was discussed. 2154: Transfer nurse for [facility] called back and declined patient for transfer due to no beds being available. May try again in the morning. 2244: Spoke with Dr. Pham, neuro-interventionalist at [facility], for transfer. Reviewed the patient?s HPI, PMHx, lab and/or radiology results. Discussed treatment plan. Will accept patient for transfer. Will discuss with family. 0: Dr. Pham from [facility] called back and will perform another exam on patient. Patient was becoming more agitated earlier and so patient was given Ativan at 10 PM. I was able to wake patient up with lots of stimuli, but is difficulty to command. Patient is not focal to either side and is able to squeeze my hand at both sides. There is some spasticity to her movements, she says huh , but cannot smile. Patient's blood pressure is now 116/60 and HR of 81. Patient's condition appears to be more cephalopathic. Dr. Pham recommend CT perfusion, but it is not available here. Will re-scan patient and if a large vessel occlusion is found, [facility] will accept patient for transfer. 2350: Further history obtained from daughter. Patient has a history of chronic back pain and takes ? [place]. Any more of that makes her sick to stomach. Patient reported to her daughter that she took Baclofen 20 mg, a medication that is not prescribed to her and that she has never taken before. 0600: Care signed out to oncoming day shift provider. Past medical, surgical, social and family history reviewed. Vitals and home medications reviewed. Results and treatment plan discussed. They will assume the care of the patient at this time and will follow the patient, pending CT Venogram and final disposition. HPI HPI Narrative 2350: Further history obtained from daughter. Patient has a history of chronic back pain and takes ? [place]. Any more of that makes her sick to stomach. Patient reported to her daughter that she took Baclofen 20 mg, a medication that is not prescribed to her and that she has never taken before.
[2025-02-18 18:33] LABS: Bacteria,Urine 1+; Bilirubin,Urine Negative (Negative); Blood,Urine Trace (Negative); Clarity,Urine Turbid (Clear/Hazy); Color,Urine Yellow (Lt Yel-Yel); Glucose, Urine 3+ (Negative); Ketones,Urine Trace (Negative); Leukocyte Esterase,Urine Positive (Negative); Nitrite,Urine Negative (Negative); Protein,Urine 2+ (Neg - Trace); RBC,Urine 3 /hpf (0-3); Specific Gravity,Urine 1.011 (1.001-1.035); Squamous Epithelial Cell,Urine < 1 /hpf (0-5); Urobilinogen,Urine Negative mg/dL (0.0-1.0); WBC,Urine 39 /hpf (0-5)
[2025-02-18 18:42] LABS: Amphetamine/Methamp Scrn,U Negative (Negative); Barbiturate Screen,Urine Negative (Negative); Benzoylecgonine Screen, Ur Negative (Negative); Fentanyl Screen,Urine Negative (Negative); THC Screen,Urine Negative (Negative)
[2025-02-18 18:43] LABS: Benzodiazepines Screen,Urine Positive (Negative); Opiate Screen,Urine Positive (Negative)
--- NOTE | 2025-02-18 19:05 | PC.NURSE ---
THIS RN RECIEVED REPORT FROM PATT WHIPPLE AT SHIFT CHANGE. PER PATT WHIPPLE MY LAST NIHSS WAS A 13 . THIS RN COMPLETED A NIHSS UPON ASSUMING CARE OF THIS PATIENT. NIHSS SCORE INCREASED FROM PATT WHIPPLES VERBAL SCORE OF 13 TO 18 DURING MY NIHSS ASSESSMENT. FAMILY AT BEDSIDE AND DAUGHTER STATES SHE IS NOT ACTING NORMAL. SHE IS MORE CONFUSED FROM WHEN WE FIRST GOT HERE . PROVIDER DEL WAS NOTIFIED OF NIHSS CHANGE AND ELEVATED BLOOD PRESSURE READING @1920, NO VERBAL ORDERS GIVEN. PER PROVIDER DEL LET ME LOOK IN THE CHART AND I WILL ORDER SOME NEW LABS AND MEDICATIONS. .
--- NOTE | 2025-02-18 19:43 | XR_ITS ---
Examination: Abdominal series 3 views including AP chest TECHNIQUE: AP portable semiupright chest, AP upright AP supine abdomen total 3 views Date and time: February 18, 20252010 hours Comparison December 01, 2024 INDICATIONS: Generalized abdominal pain today FINDINGS: Normal heart size Cardiac leads satisfactory position Lungs are clear Right internal jugular dialysis catheter tip satisfactory position Nonobstructive bowel gas pattern Surgical clips in the upper abdomen Severe osteopenia IMPRESSION: Nonobstructive bowel gas pattern
[2025-02-18 20:02] LABS: Base Excess -1 (-3-3); HCO3 26 mEq/L (20-26); Inspired Oxygen, FIO2 21 %; O2 Saturation 79 % (91-98); PCO2 50 mmHg (32.0-48.0); pH, Arterial 7.32 (7.35-7.45)
--- NOTE | 2025-02-18 20:02 | PC.NURSE ---
PT PASSES SWALLOW EVAL. PO MEDS GIVEN. PT DID NOT CHOKE OR SPILL WATER. NO SIGNS OF RESPIRATORY DISTRESS NOTED
[2025-02-18 20:03] LABS: Allen Test Performed/OK; Puncture Site Right Radial
[2025-02-18 20:07] LABS: PO2 45 mmHg (83-108)
[2025-02-18] MEDS: LABETALOL INJ 5 MG/ML VIAL 20 ML 10 MG IVP ×2 (20:08→20:50)
[2025-02-18 20:09] LABS: Lactate (Lactic Acid) 1.8 mMol/L (0.4-2.0)
[2025-02-18] MEDS: SODIUM CHLORIDE 0.9% 1000 ML 1,000 ML 100 ML IV (20:10)
--- NOTE | 2025-02-18 20:15 | PC.NURSE ---
THIS RN INFORMED PROVIDER DEL OF CRITICAL LAB VALUE PAO2 OF 45. INFORMED PROVIDER PATIENT PERIPHERAL SPO2 READING AT 99% ON ROOM AIR. PER PROVIDER PLACE PATIENT ON 2L OF 02 VIA NASAL CANNULA .
[2025-02-18] MEDS: VANCOMYCIN/NS 1 GM IVPB 200 ML IV (20:27)
[2025-02-18] MEDS: ASPIRIN EC 81 MG TABEC PO (20:29)
[2025-02-18] MEDS: CLOPIDOGREL BISULFATE 75 MG TABLET PO (20:29)
[2025-02-18 20:37] LABS: Procalcitonin 0.23 ng/ml (0.0-0.49)
--- NOTE | 2025-02-18 20:37 | PC.NURSE ---
PTS BRIEF WAS CHANGED
--- NOTE | 2025-02-18 21:27 | PC.NURSE ---
[facility] contacted pkt sent, pt declined specialty not available.
--- NOTE | 2025-02-18 21:42 | PC.NURSE ---
[facility] CONTACTED AT THIS TIME, PKT SENT, IMAGES PUSHED, DR MATHIS SPEAKING WITH [place] AT THIS TIME.
--- NOTE | 2025-02-18 21:50 | PC.NURSE ---
DAUGTHER AND SISTER OF PT AT BEDSIDE CALLED RN TO ASSESS PT. FAMILY STATES SHES GETTING MORE AGITATED. RN ASSESSES PT. PT DENIES SOB AND CHEST PAIN. PT STATES WANT TO GET UP . RN ASKED WHY SHE WANTS TO GET UP. PT STATES I WANT TO GO PEE . RN EXPLAINED TO PT UNABLE TO GET OUT OF BED DUE TO PTS CONDITION. THIS RN OFFERED PT A PUREWICK OR A BRIEF AND RN CAN CLEAN HER AFTERWARD. PT REPEATS I WANTS TO GET UP . PT ATTEMPTS TO WIGGLE OUT OF BED. PT CONTINUES TO ATTEMPT TO REMOVE BLANKETS, MAKSIM HUGGER AND TUGGING ON IV. FAMILY AT BEDSIDE REDIRECTING PATIENT. REDIRECTION NOT SUCCESSFUL. DR. MATHIS WAS NOTFIED OF PTS ACTIONS. VERBAL ORDER GIVEN OF 1MG OF ATIVAN IV . RN ASKED DR. MATHIS TO ENTER IN ORDERS. THIS RN PENDING MEDICATION ORDERS IN OCT. RN AT BEDSIDE.
[2025-02-18] MEDS: LORazepam 2 MG/ML VIAL 1 MG IVP (22:04)
[2025-02-18 22:43] LABS: Troponin I < 0.020 ng/mL (0.0-0.045)
--- NOTE | 2025-02-18 23:05 | PC.NURSE ---
THIS RN INFORMED DR. BLUE OF PTS CURRENT BP OF 130/66. POST ORDER OF LABETALOL TOTAL OF 20MG FOR BP OF 210/113. PER DR. BLUE OKAY, JUST KEEP AN I EYE ON BLOOD PRESSURE SINCE IT IS DROPPING SO FAST. .THIS RN WILL CONTINUE TO MONTIOR BLOOD PRESSURE AND TELL PROVIDER
[2025-02-18] MEDS: SODIUM CHLORIDE 0.9% 500 ML 500 ML 999 ML IV (23:32)
--- NOTE | 2025-02-18 23:38 | XR_ITS ---
Examination: CTA carotids with intravenous contrast CTA brain, head with intravenous contrast. 2-D sagittal, coronal reconstructions. 3-D reconstructions. Exam date and time: February 19, 2025 0156 hours INDICATIONS: Altered mental status today, onset focal neurologic deficit CTDI: vol (mGy) 11.4 DLP: (mGycm) 436 Technique: Multiple CTA axial brain, head carotid images post intravenous contrast injection 75 cc, Isovue-370. 2-D sagittal, coronal reconstructions. 3-D reconstructions, 3-D post processing including vascular maximum intensity projection images. Low dose protocols were performed. One or more of the following dose reduction techniques were used; automated exposure control, adjustment of the mA and/or KV according to patient size, use of iterative reconstruction technique. Findings: Codominant vertebral arteries 80% stenosis distal left vertebral artery axial image 99 No critical common carotid carotid bifurcation or internal carotid artery stenoses No cerebral large vessel arterial occlusions or thrombus Right thyroid nodule, at least 20 mm Again noted hyperdensity overlying the right transverse sinus IMPRESSION: 80% plus stenosis distal left vertebral artery No cerebral large vessel arterial occlusions Please see the CT brain scan report and recommendations today
--- NOTE | 2025-02-18 23:38 | XR_ITS ---
Examination: CT brain head without contrast. 2-D sagittal coronal reconstructions Date and time of exam:February 19, 2025 0154 hours INDICATIONS: Altered mental status today CTDI: vol (mGy):46.6 DLP: (mGycm):9 there is 17 Technique: Multiple CT axial sections of the brain have been obtained, 5 mm slice thickness. Contrast has not been administered. 2-D sagittal, coronal reconstructions have been obtained Low dose protocols were performed. One or more of the following dose reduction techniques were used; automated exposure control, adjustment of the mA and/or KV according to patient size, use of iterative reconstruction technique. Findings: No significant ventricular enlargement. No change in hypodensity overlying the right transverse sinus Intra-axial or extra-axial hemorrhage density is not seen. No mass effect or midline shift Basal cisterns are not remarkable. Fourth ventricle is midline. Cranial vault intact. Impression: Negative for acute hemorrhage, mass effect or midline shift No change in 11 mm hypodensity overlying the right transverse sinus Recommend brain MRI MRA, MRV pre and post contrast follow-up
--- NOTE | 2025-02-18 23:40 | PC.NURSE ---
Repeat NIHSS was competed by RN. NIHSS increased from 18 to 27 during assessment. The provider was at the bedside during this assessment and was informed of the change.
[2025-02-19] VITALS (40 sets, daily range): BP systolic 78–202; BP diastolic 48–146; PULSE 73–993; RESP 11–21; TEMP 35.7–37.2; O2SAT 91–99
--- NOTE | 2025-02-19 00:26 | PC.NURSE ---
BP had decreased (see vital signs), provider was notified and gave verbal orders of a 500ml NS bolus IV. FLuids were started per provider orders. BP was reassessed and increases (see vitals). Provider was notified and requested to stop fluids. fluids were stopped and BP was reassessed.
[2025-02-19] MEDS: LORazepam 2 MG/ML VIAL 0.5 MG IVP (01:27)
--- NOTE | 2025-02-19 03:16 | PC.NURSE ---
THIS RN INFORMED PROVIDER DEL OF PATIENTS BLOOD PRESSURE 202/88. PER PROVIDER GO AHEAD AND CYCLE IT ON THE OTHER ARM. I AM NOT SURE IF I READ THAT THE PATIENTS BLOOD PRESSURE FLUCTUATES OR IF FAMILY AT BEDSIDE OLD ME THAT . NO OTHER ORDERS RECIEVED.
--- NOTE | 2025-02-19 03:27 | PRELIM_ITS ---
CT scan of the head without intravenous contrast (axial sections with sagittal and coronal reformats) February 19, 2025 at 0154 hours Clinical history: Altered mental status. Comparison: Compared with the prior study dated February 18, 2025 Findings: Unchanged hypodensity along the right transverse sinus measuring 1.2 cm. There is no evidence of intracranial hemorrhage or midline shift. There are periventricular white matter hypodensities, compatible with chronic small vessel ischemia. There is moderate volume loss. The calvarium is unremarkable. The mastoid air cells and the visualized paranasal sinuses are clear. Impression: Unchanged hypodensity along the right transverse sinus measuring 1.2 cm. Correlation with MRI with and without contrast for characterization is recommended. No evidence of intracranial hemorrhage or midline shift. Periventricular chronic small vessel ischemia and volume loss. Aspect score 10. Discussion Details: Results verbally communicated to : Dr. Torres at 03:22 AM 02/19/2025 Report Electronically Signed By: Catarino Velásquez 02/19/2025 3:26:31 AM [EST]
--- NOTE | 2025-02-19 03:27 | PRELIM_ITS ---
CT angiogram of the head and neck with intravenous contrast (axial sections with sagittal and coronal reformats) February 19, 2025 at 0156 hours Clinical History: Altered mental status. Comparison: Compared with the prior study dated February 18, 2025. Findings: Head: The internal carotid, middle and anterior cerebral arteries are patent bilaterally. The intracranial vertebral arteries are patent. The vertebrobasilar junction, basilar and posterior cerebral arteries are patent. No evidence of large vessel occlusion, critical stenosis or aneurysm. Neck: The aortic arch to the extent visualized as well as the origins of the right brachiocephalic, left common carotid, and left subclavian arteries are patent. The common carotid arteries, carotid bulbs, and internal and external carotid arteries are patent. The origins of the vertebral arteries are unremarkable. The left vertebral artery is dominant. Severe stenosis of the distal left vertebral artery. Right hypodense thyroid nodule measures 2.5 cm. Loss of the physiologic cervical lordosis. No acute fractures. Sternal wires. Status post CABG. Cardiac pacemaker noted. Unchanged hypodensity in the right transverse sinus extending beyond the sinus, limited evaluation. Impression: Head: No evidence of large vessel occlusion, critical stenosis or aneurysm. Unchanged hypodensity in the right transverse sinus extending beyond the sinus, limited evaluation. Correlation with MRI with and without contrast for characterization is recommended. Differential diagnosis includes mass and thrombus. Neck: Severe stenosis of the distal left vertebral artery. Right hypodense thyroid nodule. Correlation with thyroid function tests and ultrasound is recommended. Discussion Details: Results verbally communicated to : Dr. Torres at 03:22 AM 02/19/2025 Report Electronically Signed By: Catarino Velásquez 02/19/2025 3:26:21 AM [EST]
--- NOTE | 2025-02-19 03:44 | PC.NURSE ---
PTS BRIEF AND SHEETS WERE CHANGES. PT WAS REPOSITIONED TO HER RIGHT SIDE
[2025-02-19] MEDS: PIPER/TAZO 3.375 GM PREMIX 3.375 GM/50 ML BAG IV (06:01)
--- NOTE | 2025-02-19 06:54 | EDNOTE_ITS ---
Emergency Room Addendum Addendum Narrative: 0600: Care assumed from Dr. Torres, the previous shift emergency physician. Past medical, surgical, social and family history reviewed. Vitals and home medications reviewed. I will assume the care of the patient at this time, pending diagnostic tests and final disposition. Please refer to the emergency department record for history and examination from initial visit.? Physical exam by me showed myoclonic activity of the mouth, eyes, bilateral lower and upper extremities. CT showed no CVA. Patient here for AMS and blood pressure has been consistently high. Patient has Posterior Reversible Encephalopathy Syndrome (PRES). I consulted with neurologist and they aggree the patient has PRES. They recommended to wait for spinal tap, do only if patient develops a fever. Plan is to hold ASA and plavix. Give ativan and keppra. Also, give hydralazine. Goal to keep systolic blood pressure below 160. Plan to admit to ICU for PRES. 1252: Discussed test HPI, PMHx, lab, radiology results and/or management with customer agent Dr. Alejandre. Will admit for further evaluation and management. Accepts patient for admission. Critical Care Time Critical Care Time Critical Care Time: Yes Total Critical Care Time (min.): 60 Attestation: The high probability of sudden, clinically significant deterioration in the patient?s condition required the highest level of my preparedness to intervene urgently. The services I provided to this patient were to treat and/or prevent clinically significant deterioration. Services included the following: chart data review, reviewing nursing notes and/or old charts, documentation time, dietitian consultant collaboration regarding findings and treatment options, medication orders and management, direct patient care, vital sign assessments and ordering, interpreting and reviewing diagnostic studies and lab tests. Aggregate critical care time includes only time during which I was engaged in work directly related to the patient?s care, as described above, whether at bedside or elsewhere in the Emergency Department. It did not include time spent performing other reported procedures or the services of residents, students, nurses or physician assistants. Results Objective Laboratory: Laboratory Last Values WBC 16.0 Thou/mm3 (3.6-11.0) H 02/18/25 16:29 RBC 3.54 Miln/mm3 (4.00-5.20) L 02/18/25 16:29 Hgb 10.4 g/dL (12.0-16.0) L 02/18/25 16:29 Hct 31.3 % (36.0-46.0) L 02/18/25 16: MCV 88 fL (80-100) 02/18/25 16: MCH 29.4 pg (25.0-35.0) 02/18/25 16: MCHC 33.2 g/dl (31.0-37.0) 02/18/25 16: RDW Std Deviation 56.5 fL (36.4-46.3) H 02/18/25 16:29 Plt Count 283 Thou/mm3 (140-440) D 02/18/25 16:29 Neut % (Auto) 85 % (37-80) H 02/18/25 16: Lymph % (Auto) 11 % (10-50) 02/18/25 16: [place] % (Auto) 3 % (0-12) 02/18/25 16: Eos % (Auto) 0 % (0-10) 02/18/25 16: Baso % (Auto) 0 % (0-2.5) 02/18/25 16: Neut # (Auto) 13.6 Thou/mm3 (1.8-7.7) H 02/18/25 16:29 Lymph # (Auto) 1.7 Thou/mm3 (1.0-4.8) 02/18/25 16: [place] # (Auto) 0.4 Thou/mm3 (0.0-0.8) 02/18/25 16: Eos # (Auto) 0.0 Thou/mm3 (0.0-0.5) 02/18/25 16: Baso # (Auto) 0.1 Thou/mm3 (0.0-0.2) 02/18/25 16: Immature Gran # (Auto) 0.22 Thou/mm3 (0.00-0.00) H 02/18/25 16: Absolute Nucleated RBC 0.00 Thou/mm3 (0.00-0.00) 02/18/25 16: Immature Gran % 1 % (0-0) H 02/18/25 16: Nucleated RBC % 0 /100 WBC (0) 02/18/25 16: PT 10.3 Seconds (9.0-12.2) 02/18/25 16:29 INR 0.9 (0.9-1.3) 02/18/25 16:29 APTT 25.4 Seconds (22.0-36.0) 02/18/25 16:29 Puncture Site Right Radial 02/18/25 19:57 ABG pH 7.32 (7.35-7.45) L 02/18/25 19:57 ABG pCO2 50 mmHg (32.0-48.0) H 02/18/25 19:57 ABG pO2 45 mmHg (83-108) L* 02/18/25 19:57 ABG HCO3 26 mEq/L (20-26) 02/18/25 19:57 ABG O2 Saturation 79 % (91-98) L 02/18/25 19:57 ABG Base Excess -1 (-3-3) 02/18/25 19:57 FiO2 21 % 02/18/25 19:57 Sodium 138 mMol/L (136-145) 02/18/25 16:29 Potassium 4.7 mMol/L (3.4-5.1) 02/18/25 16:29 Chloride 102 mMol/L (98-107) 02/18/25 16:29 Carbon Dioxide 25.7 mMol/L (20.0-31.0) 02/18/25 16:29 Anion Gap 10 (7-16) 02/18/25 16:29 BUN 38 mg/dL (9-23) H 02/18/25 16:29 Creatinine 3.0 mg/dL (0.6-1.3) H 02/18/25 16:29 Estim Creat Clear Calc 16.4 mL/min (>60) L 02/18/25 16:29 eGFR 17 See Note (60-) L 02/18/25 16:29 BUN/Creatinine Ratio 13 Ratio (12-20) 02/18/25 16:29 Glucose 234 mg/dL (74-106) H 02/18/25 16:29 Calculated Osmolality 292 (275-295) 02/18/25 16:29 Lactic Acid 1.8 mMol/L (0.4-2.0) 02/18/25 19:39 Calcium 9.9 mg/dL (8.3-10.6) 02/18/25 16:29 Corrected Calcium 9.9 mg/dL (8.5-10.1) 02/18/25 16:29 Magnesium 2.0 mg/dL (1.6-2.6) 02/18/25 16:29 Total Bilirubin 0.3 mg/dL (0.3-1.2) 02/18/25 16:29 AST 18 U/L (0-34) 02/18/25 16:29 ALT 17 U/L (10-49) 02/18/25 16:29 Alkaline Phosphatase 100 U/L (46-116) 02/18/25 16:29 Troponin I < 0.020 ng/mL (0.0-0.045) 02/18/25 22:18 B-Natriuretic Peptide 350 pg/mL (0-100) H 02/18/25 16:29 Total Protein 7.1 gm/dL (5.7-8.2) 02/18/25 16:29 Albumin 4.6 gm/dL (3.4-4.8) 02/18/25 16:29 Globulin 2.5 gm/dL (2.3-3.5) 02/18/25 16:29 Albumin/Globulin Ratio 1.8 (1.2-2.2) 02/18/25 16:29 Procalcitonin 0.23 ng/ml (0.0-0.49) 02/18/25 20:00 Ur Collection Type Clean Catch 02/18/25 17:40 Urine Color Yellow (Lt Yel-Yel) 02/18/25 17:40 Urine Clarity Turbid (Clear/Hazy) A 02/18/25 17:40 Urine pH 7.0 (5.0-7.0) 02/18/25 17:40 Ur Specific [place] 1.011 (1.001-1.035) 02/18/25 17:40 Urine Protein 2+ (Neg - Trace) A 02/18/25 17:40 Urine Glucose (UA) 3+ (Negative) A 02/18/25 17:40 Urine Ketones Trace (Negative) 02/18/25 17:40 Urine Blood Trace (Negative) 02/18/25 17:40 Urine Nitrite Negative (Negative) 02/18/25 17:40 Urine Bilirubin Negative (Negative) 02/18/25 17:40 Urine Urobilinogen (Auto) Negative mg/dL (0.0-1.0) 02/18/25 17:40 Ur Leukocyte Esterase Positive (Negative) 02/18/25 17:40 Urine RBC 3 /hpf (0-3) 02/18/25 17:40 Urine WBC 39 /hpf (0-5) H 02/18/25 17:40 Ur Squamous Epith Cells < 1 /hpf (0-5) 02/18/25 17:40 Urine Bacteria 1+ (None) A 02/18/25 17:40 Salicylates < 3.0 mg/dL 02/18/25 16:29 Urine Opiates Screen Positive (Negative) A 02/18/25 17:40 Urine Fentanyl Screen Negative (Negative) 02/18/25 17:40 Acetaminophen < 2.0 mcg/mL (10.0-20.0) L 02/18/25 16:29 Ur Barbiturates Screen Negative (Negative) 02/18/25 17:40 U Amphetamin/Meth Scrn Negative (Negative) 02/18/25 17:40 U Benzodiazepines Scrn Positive (Negative) A 02/18/25 17:40 U Cocaine Metab Screen Negative (Negative) 02/18/25 17:40 U Marijuana (THC) Screen Negative (Negative) 02/18/25 17:40 Ethyl Alcohol < 3.0 mg/dL (0-10.0) 02/18/25 16:29 Imaging: Procedure(s): CT head/brain wo con Accession Number(s): [id number] cc: Jesús Peter MD; Catalina Angulo (ARIACHL); Dain Quick MD~ Examination: CT brain head without contrast. 2-D sagittal coronal reconstructions Date and time of exam:February 18, 2025 7011 hours Comparison January 07, 2025 INDICATIONS: Stroke alert, onset focal neurologic deficit including altered mental status today CTDI: vol (mGy):48 DLP: (mGycm):920 Technique: Multiple CT axial sections of the brain have been obtained, 5 mm slice thickness. Contrast has not been administered. 2-D sagittal, coronal reconstructions have been obtained Low dose protocols were performed. One or more of the following dose reduction techniques were used; automated exposure control, adjustment of the mA and/or KV according to patient size, use of iterative reconstruction technique. Findings: No significant ventricular enlargement. 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 No mass effect or midline shift Basal cisterns are not remarkable. Fourth ventricle is midline. Cranial vault intact. Impression: Negative for acute hemorrhage, mass effect or midline shift Dictated By: Dain Quick MD Procedure(s): CT angio stroke protocol Accession Number(s): [id number] cc: Jesús Peter MD; Catalina Angulo (ARIACHL) [facility]; Dain Quick MD~ Examination: CTA carotids with intravenous contrast CTA brain, head with intravenous contrast. 2-D sagittal, coronal reconstructions. 3-D reconstructions. Exam date and time: February 18, 2025, 1722 hours INDICATIONS: Stroke alert today, onset generalized body weakness slurred speech beginning 10:30 AM CTDI: vol (mGy) 11.3 DLP: (mGycm) 442 Technique: Multiple CTA axial brain, head carotid images post intravenous contrast injection 100 cc, Isovue-370. 2-D sagittal, coronal reconstructions. 3-D reconstructions, 3-D post processing including vascular maximum intensity projection images. Low dose protocols were performed. One or more of the following dose reduction techniques were used; automated exposure control, adjustment of the mA and/or KV according to patient size, use of iterative reconstruction technique. Findings: 18 mm right thyroid nodule Fluid distended esophagus 10-20% stenosis origin right internal carotid artery Heavy calcification left carotid bifurcation origin left internal carotid artery, 40-60% stenosis origin left internal carotid artery, suspicious for soft thrombus in the origin left internal carotid artery sagittal image 61 Mid and distal left internal carotid artery intact Minimally dominant codominant vertebral arteries with no critical stenoses No cerebral large vessel arterial occlusions IMPRESSION: 40-60% stenosis origin left internal carotid artery. Suspicious for soft thrombus origin left internal carotid artery No cerebral large vessel arterial occlusions 18 mm right thyroid nodule. Fluid distended esophagus, clinical correlation advised Dictated By: Dain Quick MD Procedure(s): XR abdomen series w chest 1V Accession Number(s): [id number] cc: Angulo (ARIACHL),Catalina RIBEIROP; Dain Quick MD; Corinne Torres MD~ Examination: Abdominal series 3 views including AP chest TECHNIQUE: AP portable semiupright chest, AP upright AP supine abdomen total 3 views Date and time: February 18, 20252010 hours Comparison December 01, 2024 INDICATIONS: Generalized abdominal pain today FINDINGS: Normal heart size Cardiac leads satisfactory position Lungs are clear Right internal jugular dialysis catheter tip satisfactory position Nonobstructive bowel gas pattern Surgical clips in the upper abdomen Severe osteopenia IMPRESSION: Nonobstructive bowel gas pattern Dictated By: Dain Quick MD ----- Procedure(s): CT head/brain wo con Accession Number(s): [id number] cc: Catalina Angulo (ARIACHL); Dain Quick MD; Corinne Torres MD~ Examination: CT brain head without contrast. 2-D sagittal coronal reconstructions Date and time of exam:February 19, 2025 0154 hours INDICATIONS: Altered mental status today CTDI: vol (mGy):46.6 DLP: (mGycm):9 there is 17 Technique: Multiple CT axial sections of the brain have been obtained, 5 mm slice thickness. Contrast has not been administered. 2-D sagittal, coronal reconstructions have been obtained Low dose protocols were performed. One or more of the following dose reduction techniques were used; automated exposure control, adjustment of the mA and/or KV according to patient size, use of iterative reconstruction technique. Findings: No significant ventricular enlargement. No change in hypodensity overlying the right transverse sinus Intra-axial or extra-axial hemorrhage density is not seen. No mass effect or midline shift Basal cisterns are not remarkable. Fourth ventricle is midline. Cranial vault intact. Impression: Negative for acute hemorrhage, mass effect or midline shift No change in 11 mm hypodensity overlying the right transverse sinus Recommend brain MRI MRA, MRV pre and post contrast follow-up Dictated By: Dain Quick MD Procedure(s): CT angio carotid w head w Accession Number(s): [id number] cc: Catalina Angulo (ARIACHL); Dain Quick MD; Corinne Torres MD~ Examination: CTA carotids with intravenous contrast CTA brain, head with intravenous contrast. 2-D sagittal, coronal reconstructions. 3-D reconstructions. Exam date and time: February 19, 2025 0156 hours INDICATIONS: Altered mental status today, onset focal neurologic deficit CTDI: vol (mGy) 11.4 DLP: (mGycm) 436 Technique: Multiple CTA axial brain, head carotid images post intravenous contrast injection 75 cc, Isovue-370. 2-D sagittal, coronal reconstructions. 3-D reconstructions, 3-D post processing including vascular maximum intensity projection images. Low dose protocols were performed. One or more of the following dose reduction techniques were used; automated exposure control, adjustment of the mA and/or KV according to patient size, use of iterative reconstruction technique. Findings: Codominant vertebral arteries 80% stenosis distal left vertebral artery axial image 99 No critical common carotid carotid bifurcation or internal carotid artery stenoses No cerebral large vessel arterial occlusions or thrombus Right thyroid nodule, at least 20 mm Again noted hyperdensity overlying the right transverse sinus IMPRESSION: 80% plus stenosis distal left vertebral artery No cerebral large vessel arterial occlusions Please see the CT brain scan report and recommendations today Dictated By: Dain Quick MD ---
--- NOTE | 2025-02-19 08:00 | PC.NURSE ---
Unable to do NIH scale do to patient not talking, not anwering questions or following commands, patient mumbled uncomprehensible words to family, opens eyes to voice and when changing patients postion.
--- NOTE | 2025-02-19 08:06 | PC.NURSE ---
Report recieved from pm nurse, patient lying in rney queitly on right lateral side daughter at bedside, patient to er yesterday for altered mental status. Currently patient, skin is warm dry and pink, patient non verbal at this time, however, per daughter patient talking to her intermittently, with confused speech, and answering by name, awaiting MRI, will call tech. Patient has no other needs at this time. Call light within reach
--- NOTE | 2025-02-19 09:00 | PC.NURSE ---
Patients daughter gave residential gas heat technician Jeanne information regarding Pacer and she will call me back once she is able to do MRI.
--- NOTE | 2025-02-19 10:00 | PC.NURSE ---
Abdirahman Angel from MRI states MRI will not be done with contrast do to abnormal kidney function on labs, Dr. Goncalves made aware.
--- NOTE | 2025-02-19 11:23 | PC.NURSE ---
Patient bp 194/102, twitching and patient coughing, suctioned mouth and coffee ground contents noted, Dr. Goncalves made aware and states he will go to bedside to evaluate patient. New orders received for hydralazine.
--- NOTE | 2025-02-19 11:23 | PC.NURSE ---
changed pts brief and gown. switched patient position from right side to her back.
[2025-02-19] MEDS: hydrALAZINE INJ 20 MG/ML VIAL IVP (11:36)
[2025-02-19 12:07] LABS: OBG Developer Lot # 75023G; OBG Performed By vasqk2; OBG QC OK? Yes
[2025-02-19 12:11] LABS: Occult Blood, Gastric Positive (Negative)
[2025-02-19 12:12] LABS: Immature Reticulocyte Fraction 9.3 % (3.0-15.9); Reticulocyte Absolute Auto 31.9 Biln/L (25.0-75.0); Reticulocyte Hgb Content 36.3 pg (28.0-35.0)
[2025-02-19] MEDS: levETIRAcetam INJ 100 MG/ML VIAL 5ML 1000 MG IVP (12:17)
[2025-02-19] MEDS: LORazepam 2 MG/ML VIAL IVP (12:17)
[2025-02-19 12:31] LABS: LDH (Lactate Dehydrogenase) 216 U/L (120-246)
--- NOTE | 2025-02-19 13:40 | PC.NURSE ---
Intensivists at bedside evaluating patient and will admit to ICU per Dr. Real, in addition , per Dr. Roca at bedside aware of patients bp 82/49, hr [address] new orders.
--- NOTE | 2025-02-19 13:48 | PD.RESHP ---
Documentation for date of: 02/19/25 [facility] History of Present Illness History of present illness: Patient currently chemically sedated and unable to give history. History obtained from chart review and daughter, Carmen, at bedside. Patient is 60-year-old female with past medical history for primary hypertension, ESRD on hemodialysis M/W/F follows with Dr Awad., CAD status post CABG [2023], high degree heart block s/p pacemaker placement September 2024, history of recurrent UTIs, NIDDM type II [.4.6] and PRES syndrome presenting today with a chief complaint of altered mental status and abnormal movements. She follows up with manager bridge, Dr Awad, clearing distribution clerk Dr. Turk and a pacemaker was placed by live in housekeeper, Dr. Mehta. According to patient's daughter yesterday around 1 PM patient began to behave confused grasping for things in the air, and subsequently started to have abnormal twitching movements of her upper and lower limbs and blinking excessively. This was associated with urinary incontinence. Denied any loss of consciousness, tongue biting, eye rolling, frothing of the mouth, tonic movements, head trauma. Around 3 PM she was brought in to the ED. Of note patient had similar episode November 2023 and was hospitalized from 11/28/2024 to 12/02/2024 for treatment of PRES. She was also recently hospitalized from 01/08/2025 to 01/12/2025 and treated mainly for intractable nausea and vomiting secondary to diabetic gastroparesis and discharged as needed metoclopramide and erythromycin. ED course: Initial BP 207/106, pulse 97, RR 20, temp 95, SpO2 97% on room air. Labs showed WBC 28, Hb 9.9, PLT 344, BUN 46, CR 3.5, Mg 2.1, K4.8. Urinalysis showed positive leukocyte esterase, 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 No acute hemorrhage, mass effect or midline shift. Head/neck CTA significant for 80% stenosis distal left vertebral artery, hypodensity overlying right transverse sinus. No critical, incarcerated bifurcation or internal carotid artery stenosis. Chest x-ray showed no obvious hyperlucent disease, consolidation, pulmonary edema or pleural effusion. Pacemaker noted left chest with pacing wires, midline chest wall wires and spinal implants. EKG showed sinus rhythm, rate 92, Q waves in lead I, aVL. No acute ST changes. In the ED patient received Zosyn 3.375 g IV x 2, normal saline 1500 cc IVF bolus, labetalol 10 Mg IV x 2, vancomycin, aspirin 81 Mg p.o. x 1, Plavix 75 Mg IV x 1, lorazepam 1 Mg IV x 1, lorazepam 0.5 Mg IV x 1, hydralazine 20 Mg IV x 1, Keppra 1 g IV x 1 and lorazepam 2 Mg IV x 1. Initially patient blood pressure was 207/106 in the ED and she was given hydralazine 20 Mg IV x 1, levetiracetam 1000 Mg IV x 1 along with lorazepam 2 Mg IV x 1. Subsequently blood pressure dropped to 80/48 [60] and norepinephrine infusion was started. Patient will be admitted to the ICU for management of PRES syndrome and stroke rule out. Review of Systems Review of Systems ROS Unobtainable: unobtainable due to mental status Past Medical History Past Medical History Comments PMH COMMENT: Past medical history: ESRD on HD right IJ PermCath M/W/F CAD s/p CABG March 2024 Heart block s/p pacemaker placement September [address] Mehta History of recurrent UTIs NIDDM type II [4.6%] Diabetic gastroparesis PRES syndrome Medication list: Metoclopramide 10 Mg p.o. every 8 hourly as needed Ondansetron 4 Mg p.o. every 6 hourly as needed Aspirin 81 Mg p.o. daily Atorvastatin 40 Mg p.o. nightly Clopidogrel 75 Mg p.o. nightly Tradjenta 5 Mg p.o. nightly Midodrine 10 Mg p.o. 3 times daily as needed Duloxetine 30 Mg p.o. twice daily Multivitamin Vitamin C 500 Mg p.o. daily Valsartan 40 Mg p.o. daily as needed for SBP >140 Meclizine 25 Mg p.o. 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 Previously used THC Gummies Social History Note: lives with . At baseline ambulates with a walker and becomes short of breath after 10/15 steps Family History: Mother?diabetes, stroke, Strong family history of cancer Exam Vital Signs Temp Pulse Resp BP Pulse Ox O2 Del Method O2 Flow Rate 98.6 F 88 16 88/48 L 98 Nasal Cannula 1 02/19/25 12:20 02/19/25 13:46 02/19/25 13:44 02/19/25 13:44 02/19/25 13:44 02/19/25 13:44 02/19/25 13:44 FiO2 2 02/19/25 05:24 Narrative Exam Constitutional Alert, oriented x 0. Chemically sedated HEENT PERRL. Patent nares. Trachea midline Respiratory Chest normal on inspection and clear auscultation bilaterally on anterior and posterior shelton. Right tunneled IJ PermCath noted. Exit site clean Cardiovascular S1 and S2 audible, RRR. No murmurs carotid bruit. No gross JVD. Abdominal Soft, obese and non tender to palpation in all quadrants. BS + Genitourinary No bladder tenderness, no flank pain. Normal to palpation Musculoskeletal Extremities tone within normal limits. No LE edema. Neurological Unable to assess. Withdraws from pain, cough reflex present Skin Warm, dry and intact. No apparent lesions. Psychiatric Unable to assess Results: Labs 02/20/25 04:37 02/20/25 04:37 Labs: Short CBC 02/18/25 Range/Units 16:29 WBC 16.0 H (3.6-11.0) Thou/mm3 Hgb 10.4 L (12.0-16.0) g/dL Hct 31.3 L (36.0-46.0) % Plt Count 283 D (140-440) Thou/mm3 BMP 02/18/25 16:29 Sodium 138 Potassium 4.7 Chloride 102 Carbon Dioxide 25.7 BUN 38 H Creatinine 3.0 H Glucose 234 H Calcium 9.9 Cardiac Enzymes 02/18/25 02/18/25 Range/Units 16:29 22:18 Troponin I < 0.020 < 0.020 (0.0-0.045) ng/mL Liver Function 02/18/25 Range/Units 16:29 Total Bilirubin 0.3 (0.3-1.2) mg/dL AST 18 (0-34) U/L ALT 17 (10-49) U/L Alkaline Phosphatase 100 (46-116) U/L Albumin 4.6 (3.4-4.8) gm/dL Urine 02/18/25 Range/Units 17:40 Urine Color Yellow (Lt Yel-Yel) Urine Clarity Turbid A (Clear/Hazy) Urine pH 7.0 (5.0-7.0) Ur Specific [place] 1.011 (1.001-1.035) Urine Protein 2+ A (Neg - Trace) Urine Glucose (UA) 3+ A (Negative) ABG Interpretation ABG results: 02/18/25 19:57 ABG pH 7.32 L ABG pCO2 50 H ABG pO2 45 L* ABG HCO3 26 ABG O2 Saturation 79 L ABG Base Excess -1 Quality Measures Quality Measures none Medications Home Medications and Allergies Home Medications ?Medication ?Instructions ?Recorded ?Confirmed ?Type calcitriol 0.25 mcg capsule 0.5 mcg PO .qhs 09/15/23 02/19/25 History Held on 01/11/25. Instructions: Hold until you see your PCP aspirin 81 mg tablet,delayed 81 mg PO HS 11/28/24 02/19/25 History release (Adult Low Dose Aspirin) atorvastatin 40 mg tablet 40 mg PO HS 11/28/24 02/19/25 History clopidogrel 75 mg tablet 75 mg PO HS 11/28/24 02/19/25 History duloxetine 30 mg capsule,delayed 30 mg PO BID 11/28/24 02/19/25 History release (Cymbalta) linagliptin 5 mg tablet (Tradjenta) 5 mg PO HS 11/28/24 02/19/25 History midodrine 10 mg tablet 10 mg PO TID PRN SBP under 130 11/28/24 02/19/25 History ascorbate calcium (vitamin C) 500 1 g PO HS 12/01/24 02/19/25 History mg tablet vitamin B complex-vitamin C-folic 1 tab PO QDAY 12/01/24 02/19/25 History acid 0.8 mg tablet meclizine 25 mg tablet 25 mg PO PRN PRN dizziness 01/08/25 02/19/25 History alprazolam 1 mg tablet 1 mg PO PRN anxiety 02/19/25 History cetirizine 10 mg capsule (All Day 10 mg PO QDAY 02/19/25 02/19/25 History Allergy (cetirizine)) metoclopramide HCl 10 mg tablet 10 mg PO Q4H PRN nausea 02/19/25 02/19/25 History (Reglan) nitrofurantoin 100 mg capsule 100 mg PO Q24H 02/19/25 02/19/25 History pantoprazole 40 mg tablet,delayed 40 mg PO HS 02/19/25 02/19/25 History release sevelamer carbonate 800 mg tablet 800 mg PO TID 02/19/25 02/19/25 History (Renvela) Allergies Allergy/AdvReac Type Severity Reaction Status Date / Time No Known Allergies Allergy Verified 01/07/25 20:14 Visit Medications Acetaminophen (Acetaminophen Supp 650 Mg Supp) 650 mg CA Q6HR PRN PRN Reason: [id number] Stop: 03/21/25 13:40 Heparin Sodium (Porcine) (Heparin Sod Inj 5000 Unit/Ml Vial) 5,000 unit SC Q8HR ALEX Stop: 03/05/25 13:59 Hydralazine HCl (Hydralazine Inj 20 Mg/Ml Vial) 20 mg IVP Q4H PRN PRN Reason: SBP above 160 Stop: 03/21/25 11:45 Sodium Chloride (Ns) 1,000 mls @ 100 mls/hr IV Q10H ALEX Stop: 03/20/25 17:14 Last Admin: 02/19/25 13:40 Dose: Not Given Ondansetron HCl (Ondansetron Inj 2 Mg/Ml Inj 2 Ml) 4 mg IVP Q6H PRN; Protocol PRN Reason: NAUSEA OR VOMITING Stop: 03/21/25 13:40 Discontinued Medications Aspirin (Aspirin Ec 81 Mg Tabec) 81 mg PO X1 ONE Stop: 02/18/25 19:49 Last Admin: 02/18/25 20:29 Dose: 81 mg Clopidogrel Bisulfate (Clopidogrel Bisulfate 75 Mg Tablet) 75 mg PO X1 ONE Stop: 02/18/25 19:49 Last Admin: 02/18/25 20:29 Dose: 75 mg Hydralazine HCl (Hydralazine Inj 20 Mg/Ml Vial) 20 mg IVP X1 ONE Stop: 02/19/25 11:23 Last Admin: 02/19/25 11:36 Dose: 20 mg Sodium Chloride (Ns) 500 mls @ 500 mls/hr IV .Q1H ONE Stop: 02/18/25 16:43 Last Infusion: 02/18/25 19:32 Dose: Infused Piperacillin/Tazobactam/Dextrose (Zosyn) 3.375 gm in 50 mls @ 100 mls/hr IV X1 ONE Stop: 02/18/25 16:17 Last Infusion: 02/18/25 17:11 Dose: Infused Vancomycin/Sodium Chloride (Vancomycin/Ns 1 Gm Ivpb) 200 mls @ 120 mls/hr IV X1 ONE Stop: 02/18/25 21:36 Last Infusion: 02/18/25 22:32 Dose: Infused Sodium Chloride (Ns) 500 mls @ 999 mls/hr IV .Q31M ONE Stop: 02/19/25 00:02 Last Infusion: 02/18/25 23:40 Dose: 0 mls/hr Vancomycin HCl 1,000 mg/ (Sodium Chloride) 250 mls @ 150 mls/hr IV X1 ONE Stop: 02/19/25 07:20 Last Admin: 02/19/25 06:48 Dose: Not Given Piperacillin/Tazobactam/Dextrose (Zosyn) 3.375 gm in 50 mls @ 100 mls/hr IV X1 ONE Stop: 02/19/25 06:11 Last Infusion: 02/19/25 06:28 Dose: Infused Labetalol HCl (Labetalol Inj 5 Mg/Ml Vial 20 Ml) 10 mg IVP X1 ONE Stop: 02/18/25 19:47 Last Admin: 02/18/25 20:08 Dose: 10 mg Labetalol HCl (Labetalol Inj 5 Mg/Ml Vial 20 Ml) 10 mg IVP X1 ONE Stop: 02/18/25 20:44 Last Admin: 02/18/25 20:50 Dose: 10 mg Levetiracetam (Levetiracetam Inj 100 Mg/Ml Vial 5ml) 1,000 mg IVP X1 ONE Stop: 02/19/25 11:47 Last Admin: 02/19/25 12:17 Dose: 1,000 mg Lorazepam (Lorazepam 2 Mg/Ml Vial) 1 mg IVP X1 ONE Stop: 02/18/25 22:00 Last Admin: 02/18/25 22:04 Dose: 1 mg Lorazepam (Lorazepam 2 Mg/Ml Vial) 0.5 mg IVP X1 ONE Stop: 02/19/25 01:07 Last Admin: 02/19/25 01:27 Dose: 0.5 mg Lorazepam (Lorazepam 2 Mg/Ml Vial) 2 mg IVP X1 ONE Stop: 02/19/25 11:47 Last Admin: 02/19/25 12:17 Dose: 2 mg Assessment & Plan Plan Patient is 60-year-old female with past medical history for primary hypertension, ESRD on hemodialysis M/W/F follows with Dr Awad., CAD status post CABG [2023], high degree heart block s/p pacemaker placement September 2024, history of recurrent UTIs, NIDDM type II [.4.6] and PRES syndrome presenting today with a chief complaint of altered mental status and abnormal movements. CT brain and CTA showed no signs of acute hemorrhage, mass effect or midline shift and no signs of large vessel occlusion. Patient had abnormal twitching movements and ED and was given loading dose of Keppra and lorazepam 2 Mg IV x 1. Patient will be admitted to the ICU for management of press syndrome and stroke rule out. NEURO Stroke Rule out DDx: Acute stroke, TIA, PRES, seizures Dx: Patient's became confused and twitching all over her body. CT brain and CTA showed no signs of LVO obstruction or hemorrhage. Rx: MRI brain stroke protocol. RRX: Neurochecks every 15 minutes Acute metabolic encephalopathy DDx: PRES, drug side effect Dx: BP 201/110 on admission Rx: Aim to slowly lower blood pressure to a SBP <160 RRX: Labetalol 10 Mg IV Q4 hourly as needed CVS Hypotension secondary to medication DDx: Secondary to hydralazine Dx: Blood pressure dropped to 80s/48 from 210/110s after hydralazine 20 Mg IV, Keppra 1 g IV and lorazepam 2 Mg IV x 1. Rx: Norepinephrine infusion as needed to maintain MAP greater than 65 CAD s/p CABG Will resume home aspirin and Plavix tomorrow after hemodialysis Heart block s/p pacemaker insertion [September 2024] PULM No acute problems GI/Hep No acute problems RENAL ESRD on HD via RIJ PermCath M/W/F For hemodialysis as per nephrology recommendations. Dr Awad consulted HEME/ONC Normocytic Anemia DDx: OLIVER, anemia of chronic disease Dx: Hb 9.9 Rx: Recommend Epogen during hemodialysis. Monitor CBC and for signs of bleeding ENDO IDDM type II Diabetic gastroparesis Rx: Insulin sliding scale Q6 hourly. Metoclopramide 10 Mg IV every 8 hourly as needed ID UTI Dx: Urinalysis showed leukocyte esterase positive and WBC Rx: Ceftriaxone 1 g IV daily ICU Health maintenance: Dispo: Admit to ICU for acute encephalopathy secondary to PRES Diet: NPO DVT ppx: Enoxaparin 40mg SC daily GI ppx: Protonix 40mg qD IV lines: 2 pIV Central line: RIJ Permcath Arterial line: NO [place]: NO Code status: FULL CODE Plan of care discussed with Attending Dr. Hill Kaur MD PGY 1 Disclaimer: This note was dictated by speech recognition. Minor errors in plant wire chief may be present due to voice recognition software. Attending Provider Attestation/Addendum Patient seen and examined with above resident, Eric Kaur MD. I agree with the findings, assessment, and plan of care as documented except for any differences below. Patient presenting with acute encephalopathy. Prior establish history of PRES syndrome. Presenting with similar complaints and elevated blood pressure. Patient has not required initiation of nicardipine drip as she has responded to bolus dosing of hydralazine and labetalol. Patient with temporary hypotension close large dose of IV hydralazine patient was not given fluids or required pressors though Levophed was made available. Patient's mentation slowly improving after initiation of antiepileptics with Keppra as per neurology recommendations. She was given a dose of Ativan which may also be confounding her resolution of seizures, could be nonconvulsive status as well. Optic nerve sheath ultrasound at bedside showed 4.4 mm diameter bilaterally suggesting normal intracranial pressure. CT of the head similarly showing no acute findings including on serial exam. Patient is able to move all extremities with notable pretreatment prior to initiation of seizure abortive therapy. Patient will require continuous close monitoring for adequate protection of the airway as well as neurochecks in the intensive care unit. Patient should have initiation of antihypertensive regimen via IV to ensure normalization of BP to control associated swelling. EEG to be done in case of any seizure activity. Plan for MRI for more definitive imaging. No plans for lumbar puncture. Elevated WBC likely in the setting of urinary tract infection which is being treated based on prior culture data. Total critical care time: I personally spent 40 minutes for review of physiologic parameters, directing plan of care throughout the day, coordination of care with other specialist, and counseling patient's next of kin at bedside. This is exclusive of time spent teaching housestaff or performing any separate billable procedures. Patient remains at significant risk for further morbidity and mortality warranting close monitoring and care only available in the intensive care unit. Patient required critical care services for acute encephalopathy secondary to press syndrome, accelerated hypertension, and urinary tract infection.
--- NOTE | 2025-02-19 13:52 | PC.NURSE ---
Asked patient''s sister Sarah Regalado questions states she is with her regulary, no covid, no exposure and no symptoms of covid.
[2025-02-19 14:06] LABS: Basophils # (Auto) 0.1 Thou/mm3 (0.0-0.2); Basophils % (Auto) 0 % (0-2.5); Eosinophils % (Auto) 0 % (0-10); Hematocrit 29.1 % (36.0-46.0); Hemoglobin 9.9 g/dL (12.0-16.0); Immature Granulocytes % (Auto) 1 % (0-0); Lymphocytes # (Auto) 1.6 Thou/mm3 (1.0-4.8); Lymphocytes % (Auto) 6 % (10-50); Mean Corpuscular Hemoglobin 30.1 pg (25.0-35.0); Mean Corpuscular Volume 88 fL (80-100); Monocytes # (Auto) 1.1 Thou/mm3 (0.0-0.8); Monocytes % (Auto) 4 % (0-12); Neutrophils # (Auto) 24.9 Thou/mm3 (1.8-7.7); Neutrophils % (Auto) 89 % (37-80); Nucleated Red Blood Cell % 0 /100 WBC (0); Platelet Count 344 Thou/mm3 (140-440); RDW Standard Deviation 58.5 fL (36.4-46.3); Red Blood Count 3.29 Miln/mm3 (4.00-5.20)
[2025-02-19 14:24] LABS: Alanine Aminotransferase 32 U/L (10-49); Albumin, Serum 4.1 gm/dL (3.4-4.8); Albumin/Globulin Ratio 1.9 (1.2-2.2); Alkaline Phosphatase 92 U/L (46-116); Anion Gap 12 (7-16); Aspartate Amino Transferase 34 U/L (0-34); BUN/Creatinine Ratio 13 Ratio (12-20); Bilirubin,Total 0.4 mg/dL (0.3-1.2); Blood Urea Nitrogen 46 mg/dL (9-23); Calcium 9.7 mg/dL (8.3-10.6); Calcium (Corrected) 9.7 mg/dL (8.5-10.1); Carbon Dioxide 22.4 mMol/L (20.0-31.0); Chloride 108 mMol/L (98-107); Creatinine (Component) 3.5 mg/dL (0.6-1.3); Estimated Creatinine Clearance 14.1 mL/min (>60); Globulin 2.2 gm/dL (2.3-3.5); Glucose 153 mg/dL (74-106); Magnesium 2.1 mg/dL (1.6-2.6); Osmolality,Calculated 298 (275-295); Potassium 4.8 mMol/L (3.4-5.1); Sodium 142 mMol/L (136-145); Total Protein 6.3 gm/dL (5.7-8.2); eGFR 14 See Note
[2025-02-19 14:45] LABS: Vancomycin,Random 14.1 mcg/mL
[2025-02-19] MEDS: LEVOFLOXACIN/D5W 750MG IVPB 750 MG/150 ML BAG 100 MG IV (15:14)
[2025-02-19] MEDS: HEPARIN SOD INJ 5000 UNIT/ML VIAL SC ×2 (15:14→21:23)
[2025-02-19] MEDS: VANCOMYCIN/NS 500 MG IVPB 100 ML 120 MG IV (18:57)
[2025-02-19] MEDS: HEPARIN SOD INJ 1000 UNIT/ML VIAL 10 ML 3300 UNIT INDWELLCAT (19:00)
[2025-02-19] MEDS: cefTRIAXone/D5w 1gm IV premix 1 GM/50 ML BAG IV (21:24)
--- NOTE | 2025-02-19 23:46 | ESPR_ITS ---
Documentation for date of: 02/19/25 Subjective Subjective Interval history: Patient is in ICU. No seizures or myoclonic jerks after admission reported. Her blood pressure was elevated once to 200 systolic, given a dose of Hydralazine 20 mg and Ativan and BP went down to 80/60, Now the blood pressure is stabilized with systolic in the 130s. Exam - Neurology Vital Signs Temp Pulse Resp BP Pulse Ox O2 Del Method O2 Flow Rate 97.2 F 85 21 H 98/54 L 98 Nasal Cannula 2 02/19/25 20:00 02/19/25 23:01 02/19/25 23:01 02/19/25 23:01 02/19/25 23:01 02/19/25 17:00 02/19/25 18:34 FiO2 2 02/19/25 05:24 Narrative Exam GENERAL APPEARANCE: Well hydrated, well-nourished in no acute distress. HEENT: Normocephalic, atraumatic, extraocular movements intact. Pupils: Equal reacting to light NECK: Supple, no JVD or bruits. CARDIOVASULAR: Heart: S1, S2 heard, regular without S3-S4 or murmur no rubs or gallops. LUNGS/CHEST: Clear to auscultation bilaterally. No rails, rhonchi, or wheezing. Normal inspection. ABDOMEN: Soft, nontender, with normal bowel sounds. No pulsatile masses. No rebound, rigidity, or guarding. Normal inspection and palpation. EXTREMITIES: Normal inspection and palpation. No edema, clubbing or cyanosis. SKIN: Warm and dry without rashes. Normal inspection. MUSCULOSKELETAL: No cervical, thoracic, lumbar or midline bony tenderness. Normal inspection. NEURO: unresponsive, She seems to have kept her eyes intentionally closed,inconsistently follows commands in both UE, occasional tremors /twitchings noted in the LE. Brainstem function; intact. No signs of meningeal irritation noted. PSYCHIATRIC: limited. Objective Labs 02/19/25 11:56 02/19/25 11:56 Labs: Laboratory Results - last 24 hr 02/19/25 02/19/25 11:45 11:56 WBC 28.0 H D RBC 3.29 L Hgb 9.9 L Hct 29.1 L MCV 88 MCH 30.1 MCHC 34.0 RDW Std Deviation 58.5 H Plt Count 344 D Neut % (Auto) 89 H Lymph % (Auto) 6 L Nelson % (Auto) 4 Eos % (Auto) 0 Baso % (Auto) 0 Neut # (Auto) 24.9 H Lymph # (Auto) 1.6 Nelson # (Auto) 1.1 H Eos # (Auto) 0.0 Baso # (Auto) 0.1 Immature Gran # (Auto) 0.30 H Absolute Nucleated RBC 0.00 Immature Gran % 1 H Nucleated RBC % 0 Retic Count (auto) 1.0 Absolute Retic 31.9 Immature Retic Fraction 9.3 Retic Hgb Content CHr 36.3 H Sodium 142 Potassium 4.8 Chloride 108 H Carbon Dioxide 22.4 Anion Gap 12 BUN 46 H Creatinine 3.5 H D Estim Creat Clear Calc 14.1 L eGFR 14 L* BUN/Creatinine Ratio 13 Glucose 153 H D Calculated Osmolality 298 H Calcium 9.7 Corrected Calcium 9.7 Magnesium 2.1 Total Bilirubin 0.4 AST 34 ALT 32 Alkaline Phosphatase 92 Lactate Dehydrogenase 216 Total Protein 6.3 Albumin 4.1 D Globulin 2.2 L Albumin/Globulin Ratio 1.9 Gastric Occult Blood Positive A Random Vancomycin 14.1 ABG Interpretation ABG results: 02/18/25 19:57 ABG pH 7.32 L ABG pCO2 50 H ABG pO2 45 L* ABG HCO3 26 ABG O2 Saturation 79 L ABG Base Excess -1 Assessment & Plan Assessment and plan (1) New onset seizure without head trauma: Status: Acute Assessment and plan: Likely secondary to posterior reversible encephalopathy syndrome: Uncontrolled hypertension. Continued with the blood pressure monitoring and control. FU with EEG and MRI brain. Hold off on Keppra and Lorazepam for now. (2) Diabetes: Status: Acute Assessment and plan: Check fingerstick glucose and sliding scale insulin (3) End stage renal disease on dialysis due to type 2 diabetes mellitus: Status: Acute Assessment and plan: On dialysis 3 days a week
[2025-02-20] VITALS (24 sets, daily range): BP systolic 113–172; BP diastolic 70–97; PULSE 76–101; RESP 14–33; TEMP 36.1–37.3; O2SAT 93–969
--- NOTE | 2025-02-20 03:09 | PC.NURSE ---
Notified MD of systolic BP > 160 with PRN for Hydralazine 20mg IV and history of receiving medication with drastic change in BP to systolic of 80's. per MD hold medication
[2025-02-20] MEDS: HEPARIN SOD INJ 5000 UNIT/ML VIAL SC ×3 (05:37→21:15)
[2025-02-20 06:05] LABS: Basophils # (Auto) 0.1 Thou/mm3 (0.0-0.2); Basophils % (Auto) 0 % (0-2.5); Eosinophils % (Auto) 0 % (0-10); Hematocrit 30.2 % (36.0-46.0); Hemoglobin 10.2 g/dL (12.0-16.0); Immature Granulocytes % (Auto) 1 % (0-0); Immature Granulocytes Auto 0.24 Thou/mm3 (0.00-0.00); Lymphocytes # (Auto) 2.2 Thou/mm3 (1.0-4.8); Lymphocytes % (Auto) 9 % (10-50); Mean Corpuscular HGB Conc 33.8 g/dl (31.0-37.0); Mean Corpuscular Hemoglobin 29.8 pg (25.0-35.0); Mean Corpuscular Volume 88 fL (80-100); Monocytes # (Auto) 1.7 Thou/mm3 (0.0-0.8); Monocytes % (Auto) 7 % (0-12); Neutrophils # (Auto) 21.3 Thou/mm3 (1.8-7.7); Neutrophils % (Auto) 83 % (37-80); Nucleated Red Blood Cell % 0 /100 WBC (0); Platelet Count 312 Thou/mm3 (140-440); RDW Standard Deviation 59.7 fL (36.4-46.3); Red Blood Count 3.42 Miln/mm3 (4.00-5.20); White Blood Count 25.5 Thou/mm3 (3.6-11.0)
[2025-02-20 06:14] LABS: Glucose Estimated Average 114 mg/dL (80-131); Hemoglobin A1C 5.6 % Hgb (4.8-6.0)
[2025-02-20 06:44] LABS: Alanine Aminotransferase 35 U/L (10-49); Albumin, Serum 4.2 gm/dL (3.4-4.8); Albumin/Globulin Ratio 1.7 (1.2-2.2); Alkaline Phosphatase 88 U/L (46-116); Anion Gap 13 (7-16); Aspartate Amino Transferase 32 U/L (0-34); BUN/Creatinine Ratio 9 Ratio (12-20); Bilirubin,Total 0.4 mg/dL (0.3-1.2); Blood Urea Nitrogen 23 mg/dL (9-23); Calcium 9.6 mg/dL (8.3-10.6); Calcium (Corrected) 9.6 mg/dL (8.5-10.1); Cardiac Risk Estimate 3.2 RATIO (3.7-5.6); Chloride 102 mMol/L (98-107); Cholesterol 235 mg/dL (132-200); Creatinine (Component) 2.7 mg/dL (0.6-1.3); Estimated Creatinine Clearance 17.7 mL/min (>60); Globulin 2.5 gm/dL (2.3-3.5); Glucose 128 mg/dL (74-106); HDL Cholesterol 73 mg/dL (40-60); LDL Cholesterol,Calculated 141 mg/dL (0-130); Osmolality,Calculated 285 (275-295); Phosphorous 5.3 mg/dL (2.4-5.1); Potassium 3.6 mMol/L (3.4-5.1); Sodium 140 mMol/L (136-145); Thyroid Stimulating Hormone 0.65 uIU/mL (0.55-4.78); Total Protein 6.7 gm/dL (5.7-8.2); Triglycerides 103 mg/dL (30-150); Vancomycin,Random 19.9 mcg/mL; eGFR 19 See Note
--- NOTE | 2025-02-20 07:41 | PD.RESPRO ---
Documentation for date of: 02/20/25 Subjective Subjective Interval history: Patient currently chemically sedated and unable to give history. History obtained from chart review and daughter, Carmen, at bedside. Patient is 60-year-old female with past medical history for primary hypertension, ESRD on hemodialysis M/W/F follows with Dr Awad., CAD status post CABG [2023], high degree heart block s/p pacemaker placement September 2024, history of recurrent UTIs, NIDDM type II [.4.6] and PRES syndrome presenting today with a chief complaint of altered mental status and abnormal movements. She follows up with semiconductor packages leak tester, Dr Awad, registered nursing professor Dr. Turk and a pacemaker was placed by pump operator, Dr. Mehta. According to patient's daughter yesterday around 1 PM patient began to behave confused grasping for things in the air, and subsequently started to have abnormal twitching movements of her upper and lower limbs and blinking excessively. This was associated with urinary incontinence. Denied any loss of consciousness, tongue biting, eye rolling, frothing of the mouth, tonic movements, head trauma. Around 3 PM she was brought in to the ED. Of note patient had similar episode November 2023 and was hospitalized from 11/28/2024 to 12/02/2024 for treatment of PRES. She was also recently hospitalized from 01/08/2025 to 01/12/2025 and treated mainly for intractable nausea and vomiting secondary to diabetic gastroparesis and discharged as needed metoclopramide and erythromycin. ED course: Initial BP 207/106, pulse 97, RR 20, temp 95, SpO2 97% on room air. Labs showed WBC 28, Hb 9.9, PLT 344, BUN 46, CR 3.5, Mg 2.1, K4.8. Urinalysis showed positive leukocyte esterase, 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 No acute hemorrhage, mass effect or midline shift. Head/neck CTA significant for 80% stenosis distal left vertebral artery, hypodensity overlying right transverse sinus. No critical, incarcerated bifurcation or internal carotid artery stenosis. Chest x-ray showed no obvious hyperlucent disease, consolidation, pulmonary edema or pleural effusion. Pacemaker noted left chest with pacing wires, midline chest wall wires and spinal implants. EKG showed sinus rhythm, rate 92, Q waves in lead I, aVL. No acute ST changes. In the ED patient received Zosyn 3.375 g IV x 2, normal saline 1500 cc IVF bolus, labetalol 10 Mg IV x 2, vancomycin, aspirin 81 Mg p.o. x 1, Plavix 75 Mg IV x 1, lorazepam 1 Mg IV x 1, lorazepam 0.5 Mg IV x 1, hydralazine 20 Mg IV x 1, Keppra 1 g IV x 1 and lorazepam 2 Mg IV x 1. Initially patient blood pressure was 207/106 in the ED and she was given hydralazine 20 Mg IV x 1, levetiracetam 1000 Mg IV x 1 along with lorazepam 2 Mg IV x 1. Subsequently blood pressure dropped to 80/48 [60] and norepinephrine infusion was started. Patient will be admitted to the ICU for management of PRES syndrome and stroke rule out. 02/20/2025: Patient had no events overnight. This morning she is conversant and A&O x 3. Blood pressure 148/86. Hb 10.2, BUN 23, CR 2.7, Phos 5.3, cholesterol 235, LDL 141, HDL 73. Blood culture pending and urine culture grew Enterobacter pansensitive to antibiotics. Pending EEG and MRI Brain Stroke Protocol. Currently on Ceftriaxone 1 G IV Daily for UTI,Resume home duloxetine 30 Mg p.o. twice daily. And aspirin and Plavix. Started on labetalol 10 Mg IV every 4 hourly for tight control of blood pressure with a goal of systolic <120. Will continue HD as per nephrology recommendations. Currently patient clinically stable for downgrade to the floor. Exam Vital Signs Temp Pulse Resp BP Pulse Ox O2 Del Method O2 Flow Rate 96.9 F 97 15 161/88 H 94 L Nasal Cannula 2 02/20/25 04:00 02/20/25 07:00 02/20/25 07:00 02/20/25 07:00 02/20/25 07:00 02/19/25 17:00 02/19/25 18:34 FiO2 2 02/19/25 05:24 Narrative Exam Constitutional Alert, oriented x 3 and comfortable. Elderly female HEENT Vision grossly intact. Patent nares. Trachea midline Respiratory Chest normal on inspection and clear auscultation bilaterally. RIJ cath pneumonitis likely Cardiovascular S1 and S2 audible, RRR. No murmurs carotid bruit. No gross JVD. Abdominal Soft, obese and non tender to palpation in all quadrants. BS + Genitourinary No bladder tenderness, no flank pain. Normal to palpation Musculoskeletal Extremities tone within normal limits. No LE edema. Neurological CN II - XII grossly intact. Power 2/5 lower extremities, 3/5 upper extremities bilaterally. Skin Warm, dry and intact. No apparent lesions. Psychiatric Patient has good affect, is cooperative Objective Labs 02/21/25 05:12 02/21/25 05:12 Labs: Laboratory Results - last 24 hr 02/19/25 02/19/25 02/20/25 11:45 11:56 04:37 WBC 28.0 H D 25.5 H RBC 3.29 L 3.42 L Hgb 9.9 L 10.2 L Hct 29.1 L 30.2 L MCV 88 88 MCH 30.1 29.8 MCHC 34.0 33.8 RDW Std Deviation 58.5 H 59.7 H Plt Count 344 D 312 D Neut % (Auto) 89 H 83 H Lymph % (Auto) 6 L 9 L Rowan % (Auto) 4 7 Eos % (Auto) 0 0 Baso % (Auto) 0 0 Neut # (Auto) 24.9 H 21.3 H Lymph # (Auto) 1.6 2.2 Rowan # (Auto) 1.1 H 1.7 H Eos # (Auto) 0.0 0.0 Baso # (Auto) 0.1 0.1 Immature Gran # (Auto) 0.30 H 0.24 H Absolute Nucleated RBC 0.00 0.00 Immature Gran % 1 H 1 H Nucleated RBC % 0 0 Retic Count (auto) 1.0 Absolute Retic 31.9 Immature Retic Fraction 9.3 Retic Hgb Content CHr 36.3 H Sodium 142 140 Potassium 4.8 3.6 D Chloride 108 H 102 Carbon Dioxide 22.4 25.0 Anion Gap 12 13 BUN 46 H 23 Creatinine 3.5 H D 2.7 H D Estim Creat Clear Calc 14.1 L 17.7 L eGFR 14 L* 19 L BUN/Creatinine Ratio 13 9 L Glucose 153 H D [address] Glu mg/dL 114 Hemoglobin A1c 5.6 Calculated Osmolality 298 H 285 Calcium 9.7 9.6 Corrected Calcium 9.7 9.6 Phosphorus 5.3 H Magnesium 2.1 Total Bilirubin 0.4 0.4 AST 34 32 ALT 32 35 Alkaline Phosphatase 92 88 Lactate Dehydrogenase 216 Total Protein 6.3 6.7 Albumin 4.1 D 4.2 Globulin 2.2 L 2.5 Albumin/Globulin Ratio 1.9 1.7 Triglycerides 103 Cholesterol 235 H LDL Cholesterol, Calc 141 H HDL Cholesterol 73 H Cholesterol/HDL Ratio 3.2 L TSH 0.65 Gastric Occult Blood Positive A Random Vancomycin 14.1 19.9 ABG Interpretation ABG results: 02/18/25 19:57 ABG pH 7.32 L ABG pCO2 50 H ABG pO2 45 L* ABG HCO3 26 ABG O2 Saturation 79 L ABG Base Excess -1 Quality Measures Quality Measures none Assessment & Plan Assessment Current Active Medications: Generic Name Dose Route Start Last Admin Trade Name Freq PRN Reason Stop Dose Admin Acetaminophen 650 mg 02/20/25 07:12 Acetaminophen Supp 650 Mg Supp AR 03/21/25 13:40 Q6HR PRN FEVER 101.5 Aspirin 81 mg 02/20/25 21:00 Aspirin Ec 81 Mg Tabec PO 03/22/25 20:59 HS ALEX Atorvastatin Calcium 80 mg 02/20/25 21:00 Atorvastatin Calcium 20 Mg Tablet PO 03/22/25 20:59 HS ALEX Clopidogrel Bisulfate 75 mg 02/20/25 21:00 Clopidogrel Bisulfate 75 Mg Tablet PO 03/22/25 20:59 HS ALEX Dextrose 50 ml 02/19/25 14:37 Dextrose 50%-Water Inj 50 Ml Syringe IV 03/21/25 14:36 Q15MIN PRN BG <50 OR BG <70 & pt unresponsive Glucagon 1 mg 02/19/25 14:37 Glucagon Inj 1 Mg Vial IM Q15MIN PRN BG <70, and no IV access Heparin Sodium (Porcine) 5,000 unit 02/19/25 14:00 02/20/25 05:37 Heparin Sod Inj 5000 Unit/Ml Vial SC 03/05/25 13:59 5,000 unit Q8HR ALEX Administration Heparin Sodium (Porcine) 3,300 unit 02/19/25 16:05 02/19/25 19:00 Heparin Sod Inj 1000 Unit/Ml Vial 10 Ml INDWELLCAT 03/05/25 16:04 3,300 unit X1 PRN Administration DIALYSIS Norepinephrine/Dextrose 8 mg in 250 mls @ 6.804 mls/hr 02/19/25 14:12 Levophed In D5w 8mg/250ml IV 03/21/25 14:11 .Q24H PRN PER PROTOCOL Protocol 0.05 MCG/KG/MIN Albumin Human 25 gm in 100 mls @ 100 mls/min 02/19/25 16:05 Albuminar-25 Ivpb IV PRN PRN DIALYSIS Ceftriaxone Sodium/Dextrose 1 gm in 50 mls @ 100 mls/hr 02/19/25 20:31 02/19/25 21:24 Rocephin/D5w 1gm Iv Premix IV 02/26/25 20:30 100 mls/hr QDAY ALEX Administration Magnesium Sulfate/Dextrose 1 gm in 100 mls @ 100 mls/hr 02/20/25 07:37 Magnesium Sulfate Ivpb IV 02/20/25 08:36 X1 ONE Insulin Human Lispro 0 unit 02/19/25 14:45 02/20/25 05:28 Insulin Lispro (Admelog) 1 Unit/0.01 Ml Unit SC 03/21/25 14:44 Not Given Q6HR ALEX Protocol Labetalol HCl 10 mg 02/20/25 07:38 Labetalol Inj 5 Mg/Ml Vial 20 Ml IVP 03/22/25 07:59 Q2HR PRN SBP> 180 Ondansetron HCl 4 mg 02/19/25 13:41 Ondansetron Inj 2 Mg/Ml Inj 2 Ml IVP 03/21/25 13:40 Q6H PRN NAUSEA OR VOMITING Protocol Pharmacy Consult 1 each 02/19/25 13:58 Pharmacy Renal Dose Adjustment 1 Ea XX 03/21/25 13:57 PRN PRN CONSULT Plan Patient is 60-year-old female with past medical history for primary hypertension, ESRD on hemodialysis M/W/F follows with Dr Awad., CAD status post CABG [2023], high degree heart block s/p pacemaker placement September 2024, history of recurrent UTIs, NIDDM type II [.4.6] and PRES syndrome presenting today with a chief complaint of altered mental status and abnormal movements. CT brain and CTA showed no signs of acute hemorrhage, mass effect or midline shift and no signs of large vessel occlusion. Patient had abnormal twitching movements and ED and was given loading dose of Keppra and lorazepam 2 Mg IV x 1. Patient will be admitted to the ICU for management of press syndrome and stroke rule out. NEURO New onset seizures DDx: PRES, TIA Dx: Patient's became confused and twitching all over her body. CT brain and CTA showed no signs of LVO obstruction or hemorrhage. Rx: MRI brain stroke protocol and EEG pending RRX: Neurochecks every 4 hours Acute metabolic encephalopathy - resolving DDx: secondary to UTI Dx: BP 201/110 on admission RX: Labetalol 10 Mg IV Q4 hourly ALEX to achieve SBP <120 CVS CAD s/p CABG Resumed home aspirin and Plavix Heart block s/p pacemaker insertion [September 2024] - Pacemaker interrogated and sent to [place] - Medical records requested from Dr. Mehta's office - Environmental Engineer Scientist, Dr. Marks cleared patient for MRI. However MRI department will have to switch pacemaker to MRI mode or request [employer] rep to adjust PULM No acute problems GI/Hep No acute problems RENAL ESRD on HD via RIJ PermCath M/W/F For hemodialysis as per nephrology recommendations. Dr Awad consulted HEME/ONC Normocytic Anemia DDx: OLIVER, anemia of chronic disease Dx: Hb 9.9 -> 10.2 Rx: Recommend Epogen during hemodialysis. Monitor CBC and for signs of bleeding ENDO IDDM type II [5.6%] Diabetic gastroparesis Rx: Insulin sliding scale Q6 hourly as needed. Metoclopramide 10 Mg IV every 8 hourly as needed ID UTI Dx: Urinalysis showed leukocyte esterase positive and WBC. Urinalysis grew Enterobacter pansensitive to all antibiotics Rx: Ceftriaxone 1 g IV daily ICU Health maintenance: Dispo: patient clinically stable for downgrade to the floor Diet: NPO DVT ppx: Heparin 5000 units daily twice daily GI ppx: Protonix 40mg qD IV lines: 2 pIV Central line: RIJ Permcath Arterial line: NO Lima: NO Code status: FULL CODE Plan of care discussed with Attending Dr. Hill Kaur MD PGY 1 Disclaimer: This note was dictated by speech recognition. Minor errors in new accounts representative may be present due to voice recognition software. Attending Provider Attestation/Addendum Patient seen and examined with the above resident, Eric Kaur MD. I agree with the findings, assessment, and plan of care as documented except for any differences below. Patient with PRES syndrome. BP stabilized and mentation improved. MRI imaging is pending and awaiting availability of MRI service at our facility. HD done, schedule per nephrology. Will help with BP control. Complete abx course, unclear if OP abx may have been cause outside of just poorly controlled HTN. EEG this AM, defer to neurology about resuming AE medications but so far no recurrence with treatment of underlying condition. Precipitant is unclear, second episodes in pats few months. Speech/ swallow and PT to occur in coming days. Patient's family updated at bedside. Plan to transfer to telemetry to complete workup prior to discharge. Total critical care time: I personally spent 40 minutes for review of physiologic parameters, directing plan of care, coordination of care with other specialists, and counseling patient and family at bedside. This is exclusive of time spent teaching housestaff or performing any separate billable procedures. Patient remained at significant risk of further morbidity and mortality warranting close monitoring and care only available in the ICU. Patient required critical care services for HTN emergency, PRES syndrome, seizures, and acute encephalopathy.
[2025-02-20 07:52] LABS: Magnesium 2.1 mg/dL (1.6-2.6)
[2025-02-20] MEDS: cefTRIAXone/D5w 1gm IV premix 1 GM/50 ML BAG IV (08:09)
[2025-02-20] MEDS: Magnesium Sulfate 1 gm Ivpb 1 GM/100 ML BAG IV (08:09)
[2025-02-20] MEDS: LABETALOL INJ 5 MG/ML VIAL 20 ML IVP ×2 (10:35→14:59)
--- NOTE | 2025-02-20 10:55 | PC.SS ---
DEVELOPMENT ARCHITECT conducted bedside contact with the patient conduct initial assessment and to discuss discharge planning.? At bedside with patient was spouse, Supa Mathew .? Spouse provided information for assessment and discharge planning.? Patient resides at home with spouse.? Patient utilizes a walker to assist with ambulation. ?Patient does not utilize home oxygen.? Patient requires assistance with the completion of ADL?s.? Family provides assistance with ADL?s and provide transportation on behalf of the patient.? Patient?s medical surrogate decision maker is spouse, Supa Carmona.? Patient?s PCP is Catalina Angulo.? The patient?s conservation agent is Dr. Awad.? The patient is established with outpatient dialysis.? Dialysis schedule is M,W,F.? Spouse reports that the patient is pending kidney transplant.? Discharge plan is for the patient to return home at the time of discharge.? Family will provide transportation on behalf of the patient.? No further discharge needs identified by the patient.? No further intervention required at this time, social work job titles will be available to address any further concerns.? Next of Kin: Supa Carmona D/C Plan: Home
--- NOTE | 2025-02-20 12:30 | PD.IMCONS ---
HPI Data of Consult Requesting Physician: Brian Alejandre MD Primary Care Provider: DARIAN Winter([facility]) Consult Narrative Reason for consult: Pacemaker check and clearance for MRI History of present illness: 60-year-old female male with a past medical history of CAD s/p CABG in May 2024 after elective cardiac authorization for a positive stress test, status post pacemaker placed in 2024 for symptomatic AV block, stage renal disease on hemodialysis on Monday and Monday, type 2 diabetes mellitus, history of gastric sleeve operation, previous diagnosis of pres syndrome by neurology presented to the hospital for further evaluation of altered mental status and abnormal movements According to patient's daughter yesterday around 1 PM patient began to behave confused grasping for things in the air, and subsequently started to have abnormal twitching movements of her upper and lower limbs and blinking excessively. This was associated with urinary incontinence. Denied any loss of consciousness, tongue biting, eye rolling, frothing of the mouth, tonic movements, head trauma. Around 3 PM she was brought in to the ED. Of note patient had similar episode November 2023 and was hospitalized from 11/28/2024 to 12/02/2024 for treatment of PRES. She was also recently hospitalized from 01/08/2025 to 01/12/2025 and treated mainly for intractable nausea and vomiting secondary to diabetic gastroparesis and discharged as needed metoclopramide and erythromycin. ED course: Initial BP 207/106, pulse 97, RR 20, temp 95, SpO2 97% on room air. Labs showed WBC 28, Hb 9.9, PLT 344, BUN 46, CR 3.5, Mg 2.1, K4.8. Urinalysis showed positive leukocyte esterase, 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 No acute hemorrhage, mass effect or midline shift. Head/neck CTA significant for 80% stenosis distal left vertebral artery, hypodensity overlying right transverse sinus. No critical, incarcerated bifurcation or internal carotid artery stenosis. Chest x-ray showed no obvious hyperlucent disease, consolidation, pulmonary edema or pleural effusion. Pacemaker noted left chest with pacing wires, midline chest wall wires and spinal implants. EKG showed sinus rhythm, rate 92, Q waves in lead I, aVL. No acute ST changes. In the ED patient received Zosyn 3.375 g IV x 2, normal saline 1500 cc IVF bolus, labetalol 10 Mg IV x 2, vancomycin, aspirin 81 Mg p.o. x 1, Plavix 75 Mg IV x 1, lorazepam 1 Mg IV x 1, lorazepam 0.5 Mg IV x 1, hydralazine 20 Mg IV x 1, Keppra 1 g IV x 1 and lorazepam 2 Mg IV x 1. Initially patient blood pressure was 207/106 in the ED and she was given hydralazine 20 Mg IV x 1, levetiracetam 1000 Mg IV x 1 along with lorazepam 2 Mg IV x 1. Subsequently blood pressure dropped to 80/48 [60] and norepinephrine infusion was started. Patient was admitted to the ICU for management depression as well as stroke rule out. Neurology was consulted who recommended an EEG along with MRI brain stroke protocol. Patient has a pacemaker placed recently and cardiology now consulted for further evaluation of the pacemaker device and clearance for the MRI. cc:: cc: Brian Alejandre MD Review of Systems Review of Systems Systems Reviewed: All systems reviewed, normal except as documented Meds Home Medications and Allergies Home Medications ?Medication ?Instructions ?Recorded ?Confirmed ?Type aspirin 81 mg tablet,delayed 81 mg PO HS 11/28/24 02/19/25 History release (Adult Low Dose Aspirin) atorvastatin 40 mg tablet 40 mg PO HS 11/28/24 02/19/25 History clopidogrel 75 mg tablet 75 mg PO HS 11/28/24 02/19/25 History duloxetine 30 mg capsule,delayed 30 mg PO BID 11/28/24 02/19/25 History release (Cymbalta) linagliptin 5 mg tablet (Tradjenta) 5 mg PO HS 11/28/24 02/19/25 History ascorbate calcium (vitamin C) 500 1 g PO HS 12/01/24 02/19/25 History mg tablet vitamin B complex-vitamin C-folic 1 tab PO QDAY 12/01/24 02/19/25 History acid 0.8 mg tablet meclizine 25 mg tablet 25 mg PO PRN PRN dizziness 01/08/25 02/19/25 History alprazolam 1 mg tablet 1 mg PO PRN PRN anxiety 02/19/25 02/21/25 History cetirizine 10 mg capsule (All Day 10 mg PO QDAY 02/19/25 02/19/25 History Allergy (cetirizine)) metoclopramide HCl 10 mg tablet 10 mg PO Q4H PRN nausea 02/19/25 02/19/25 History (Reglan) nitrofurantoin 100 mg capsule 100 mg PO Q24H 02/19/25 02/19/25 History pantoprazole 40 mg tablet,delayed 40 mg PO HS 02/19/25 02/19/25 History release sevelamer carbonate 800 mg tablet 800 mg PO TID 02/19/25 02/19/25 History (Renvela) Allergies Allergy/AdvReac Type Severity Reaction Status Date / Time No Known Allergies Allergy Verified 02/22/25 15:54 Exam Vital Signs Temp Pulse Resp BP Pulse Ox O2 Del Method O2 Flow Rate 98.9 F 90 19 139/81 H 969 H Room Air 2 02/20/25 17:00 02/20/25 21:20 02/20/25 17:00 02/20/25 21:20 02/20/25 17:00 02/20/25 17:00 02/19/25 18:34 FiO2 2 02/19/25 05:24 Narrative Exam General: Alert and oriented x3. In no acute distress. Eyes: Pupils are equal and reactive to light bilaterally. HEENT: Atraumatic, normocephalic. No JVD noted. Mucosa moist. Cardiovascular: Sternal scar appears clean. Normal S1 and S2. Normal rate and regular rhythm. No murmurs appreciated. No peripheral pitting edema noted. Respiratory: No respiratory distress. Lungs are clear to auscultation bilaterally. No wheezing or crackles heard. Abdomen: Soft, nontender, nondistended. Skin: No rash. Warm to touch. Musculoskeletal: No gross injuries. Able to move all 4 extremities. Neuro: Alert and oriented x3. 2-3/5 power in all the extremities. Cranial nerves appear to be intact Psych: Normal affect and mood Results Labs 02/22/25 06:05 02/22/25 06:05 Labs: Short CBC 02/20/25 Range/Units 04:37 WBC 25.5 H (3.6-11.0) Thou/mm3 Hgb 10.2 L (12.0-16.0) g/dL Hct 30.2 L (36.0-46.0) % Plt Count 312 D (140-440) Thou/mm3 BMP 02/20/25 04:37 Sodium 140 Potassium 3.6 D Chloride 102 Carbon Dioxide 25.0 BUN 23 Creatinine 2.7 H D Glucose 128 H Calcium 9.6 Liver Function 02/20/25 Range/Units 04:37 Total Bilirubin 0.4 (0.3-1.2) mg/dL AST 32 (0-34) U/L ALT 35 (10-49) U/L Alkaline Phosphatase 88 (46-116) U/L Albumin 4.2 (3.4-4.8) gm/dL ABG Interpretation ABG results: 02/18/25 19:57 ABG pH 7.32 L ABG pCO2 50 H ABG pO2 45 L* ABG HCO3 26 ABG O2 Saturation 79 L ABG Base Excess -1 Assessment and Plan Additional Assessment & Plan Additional Plan: 60-year-old female male with a past medical history of CAD s/p CABG in May 2024 after elective cardiac authorization for a positive stress test, status post pacemaker placed in 2024 for symptomatic AV block, stage renal disease on hemodialysis on Monday and Monday, type 2 diabetes mellitus, history of gastric sleeve operation, 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 Cardiology consulted for pacemaker evaluation as the patient will need an MRI brain as recommended by neurology. 1. Symptomatic bradycardia secondary to AV block and status post pacemaker-[employer] placed in September 2024 2. Altered mental status 3. Acute metabolic encephalopathy with possible pres syndrome versus new onset seizures versus hypertensive encephalopathy 4. Hypertensive emergency 4. CAD status post CABG in May 2025 5. End-stage renal disease on hemodialysis Monday 6. Chronic anemia 7. Type 2 diabetes mellitus 8. Obesity status post gastric sleeve surgery 9. Diabetic gastroparesis 10. Depression Patient presented with altered mental status and broad differential at the present point of time including metabolic encephalopathy and hypertensive encephalopathy versus possible press syndrome. Patient does have some neurological deficits with only 2-3+ per bilaterally and has dysphagia. Neurology was consulted and recommended EEG along with MRI. Further management of altered mental status as per the neurology team. Patient does have a pacemaker placed in [place] [address] Allred in [place] for symptomatic bradycardia with AV block. Patient apparently did not follow-up with them only once in follows up with also he the regular color coater as outpatient but the primary team unable to obtain pacemaker details to have clearance for the MRI. Family informed that patient does have a [employer] pacemaker and will recontact [facility] service line for side effect on-call device check and it showed patient has excellent battery and it has been only 3 months since placement. All the sensitivities, impedance and thresholds of the pacemaker are in the normal range. Baseline rate is 60 and upper limit for tracking was at 120 bpm. There has been no new events since the placement of the pacemaker. Pacemaker interrogation placed in the chart and patient has an MRI safe device as well as the leads and form completed for clearance for MRI. Patient is scheduled for the MRI today. Patient does have a history of CAD status post CABG in May 2024 with an active cardiac catheterization after positive stress test which was done as part of the preoperative workup. Patient denies any chest pain chest pressure or other cardiac in place. Troponins have been negative and EKG without any acute ST changes. Continue aspirin, Plavix as well as statin and beta-lauren. Patient did present with hypertensive emergency with altered mental status and possible metabolic versus hypertensive encephalopathy. Patient initial blood pressure was 210/110 mmHg. The patient has a possible diagnosis of press syndrome that was diagnosed by neurology. Trying to rule out stroke as well as seizures with an EEG.. Recommend aggressive control of blood pressure and to keep the diastolic blood pressure around 90-100 mmHg as per the recommendations. Recommend not to decrease more than 25% of the systolic blood pressure in the first 24 hours. Management of rest of the medical conditions as per primary team and other consultants. Thank you for the consult and allowing me to participate in the care of the patient. Cardiology will continue to follow. Zaheer Marks M.D. Interventional Cardiology
--- NOTE | 2025-02-20 16:53 | PC.NURSE ---
report given to Harsh RN, pt , moving to room 277
[2025-02-20] MEDS: LABETALOL INJ 5 MG/ML VIAL 20 ML 10 MG IVP ×2 (17:20→21:20)
--- NOTE | 2025-02-20 18:25 | PD.RESPRO ---
Documentation for date of: 02/20/25 Subjective Subjective Interval history: Patient seen and examined at bedside, patient was admitted to ICU on February 19 for management of PRESsyndrome and stroke rule out. For the hospital course patient was admitted to ICU due to severe hypotension and new onset seizure, had a significant blood pressure drop was started on norepinephrine This morning patient was found to have improved blood pressure, was downgraded to telemetry. Currently patient has no complaints, complains of some dizziness, is pending MRI. Patient was started on home medications this morning. Will continue to manage patient on telemetry. Exam Vital Signs Temp Pulse Resp BP Pulse Ox O2 Del Method O2 Flow Rate 98.9 F 82 19 148/86 H 969 H Room Air 2 02/20/25 17:00 02/20/25 17:20 02/20/25 17:00 02/20/25 17:20 02/20/25 17:00 02/20/25 17:00 02/19/25 18:34 FiO2 2 02/19/25 05:24 Narrative Exam Constitutional:Alert, oriented x 3 and comfortable. Elderly female HEENT: Vision grossly intact. Patent nares. Trachea midline Respiratory: Chest normal on inspection and clear auscultation bilaterally. RIJ cath. Cardiovascular: S1 and S2 audible, RRR. No murmurs carotid bruit. No gross JVD. Abdominal: Soft, obese and non tender to palpation in all quadrants. BS + Genitourinary: No bladder tenderness, no flank pain. Normal to palpation Musculoskeletal: Extremities tone within normal limits. No LE edema. Neurological: CN II - XII grossly intact. Power 2/5 lower extremities, 3/5 upper extremities bilaterally. Skin: Warm, dry and intact. No apparent lesions. Psychiatric: Patient has good affect, is cooperative Objective Labs 02/21/25 05:12 02/21/25 05:12 Labs: Laboratory Results - last 24 hr 02/20/25 02/20/25 04:27 04:37 WBC 25.5 H RBC 3.42 L Hgb 10.2 L Hct 30.2 L MCV 88 MCH 29.8 MCHC 33.8 RDW Std Deviation 59.7 H Plt Count 312 D Neut % (Auto) 83 H Lymph % (Auto) 9 L [place] % (Auto) 7 Eos % (Auto) 0 Baso % (Auto) 0 Neut # (Auto) 21.3 H Lymph # (Auto) 2.2 [place] # (Auto) 1.7 H Eos # (Auto) 0.0 Baso # (Auto) 0.1 Immature Gran # (Auto) 0.24 H Absolute Nucleated RBC 0.00 Immature Gran % 1 H Nucleated RBC % 0 Sodium 140 Potassium 3.6 D Chloride 102 Carbon Dioxide 25.0 Anion Gap 13 BUN 23 Creatinine 2.7 H D Estim Creat Clear Calc 17.7 L eGFR 19 L BUN/Creatinine Ratio 9 L Glucose [address] Glu mg/dL 114 Hemoglobin A1c 5.6 Calculated Osmolality 285 Calcium 9.6 Corrected Calcium 9.6 Phosphorus 5.3 H Magnesium 2.1 Total Bilirubin 0.4 AST 32 ALT 35 Alkaline Phosphatase 88 Total Protein 6.7 Albumin 4.2 Globulin 2.5 Albumin/Globulin Ratio 1.7 Triglycerides 103 Cholesterol 235 H LDL Cholesterol, Calc 141 H HDL Cholesterol 73 H Cholesterol/HDL Ratio 3.2 L TSH 0.65 Random Vancomycin 19.9 ABG Interpretation ABG results: 02/18/25 19:57 ABG pH 7.32 L ABG pCO2 50 H ABG pO2 45 L* ABG HCO3 26 ABG O2 Saturation 79 L ABG Base Excess -1 Quality Measures Quality Measures none Assessment & Plan Assessment Current Active Medications: Generic Name Dose Route Start Last Admin Trade Name Freq PRN Reason Stop Dose Admin Acetaminophen 650 mg 02/20/25 07:12 Acetaminophen Supp 650 Mg Supp ID 03/21/25 13:40 Q6HR PRN FEVER 101.5 Aspirin 81 mg 02/20/25 21:00 Aspirin Ec 81 Mg Tabec PO 03/22/25 20:59 HS ALEX Atorvastatin Calcium 80 mg 02/20/25 21:00 Atorvastatin Calcium 20 Mg Tablet PO 03/22/25 20:59 HS ALEX Clopidogrel Bisulfate 75 mg 02/20/25 21:00 Clopidogrel Bisulfate 75 Mg Tablet PO 03/22/25 20:59 HS ALEX Dextrose 50 ml 02/19/25 14:37 Dextrose 50%-Water Inj 50 Ml Syringe IV 03/21/25 14:36 Q15MIN PRN BG <50 OR BG <70 & pt unresponsive Duloxetine HCl 30 mg 02/20/25 21:00 Duloxetine Hcl 30 Mg Capsule PO 03/22/25 20:59 BID ALEX Glucagon 1 mg 02/19/25 14:37 Glucagon Inj 1 Mg Vial IM Q15MIN PRN BG <70, and no IV access Heparin Sodium (Porcine) 5,000 unit 02/19/25 14:00 02/20/25 14:59 Heparin Sod Inj 5000 Unit/Ml Vial SC 03/05/25 13:59 5,000 unit Q8HR ALEX Administration Heparin Sodium (Porcine) 3,300 unit 02/19/25 16:05 02/19/25 19:00 Heparin Sod Inj 1000 Unit/Ml Vial 10 Ml INDWELLCAT 03/05/25 16:04 3,300 unit X1 PRN Administration DIALYSIS Albumin Human 25 gm in 100 mls @ 100 mls/min 02/19/25 16:05 Albuminar-25 Ivpb IV PRN PRN DIALYSIS Ceftriaxone Sodium/Dextrose 1 gm in 50 mls @ 100 mls/hr 02/19/25 20:31 02/20/25 08:09 Rocephin/D5w 1gm Iv Premix IV 02/26/25 20:30 100 mls/hr QDAY ALEX Administration Insulin Human Lispro 0 unit 02/19/25 14:45 02/20/25 17:25 Insulin Lispro (Admelog) 1 Unit/0.01 Ml Unit SC 03/21/25 14:44 Not Given Q6HR ALEX Protocol Labetalol HCl 10 mg 02/20/25 18:00 02/20/25 17:20 Labetalol Inj 5 Mg/Ml Vial 20 Ml IVP 03/22/25 17:59 10 mg Q4HR ALEX Administration Ondansetron HCl 4 mg 02/19/25 13:41 Ondansetron Inj 2 Mg/Ml Inj 2 Ml IVP 03/21/25 13:40 Q6H PRN NAUSEA OR VOMITING Protocol Pharmacy Consult 1 each 02/19/25 13:58 Pharmacy Renal Dose Adjustment 1 Ea XX 03/21/25 13:57 PRN PRN CONSULT Plan Summary: Patient is 60-year-old female with past medical history for primary hypertension, ESRD on hemodialysis M/W/F follows with Dr Awad., CAD status post CABG [2023], high degree heart block s/p pacemaker placement September 2024, history of recurrent UTIs, NIDDM type II [.4.6] and PRES syndrome presenting today with a chief complaint of altered mental status and abnormal movements. CT brain and CTA showed no signs of acute hemorrhage, mass effect or midline shift and no signs of large vessel occlusion. Patient had abnormal twitching movements and ED and was given loading dose of Keppra and lorazepam 2 Mg IV x 1. Patient will be admitted to the ICU for management of press syndrome and stroke rule out. #Acute encephalopathy, resolving #New onset seizures #Suspicion of PRES syndrome #Urinary tract infection Patient's became confused and twitching all over her body. CT brain and CTA showed no signs of LVO obstruction or hemorrhage. Patient was found to have urinary tract infection. Blood pressure 201/110 on admission. Urinalysis showed leukocyte esterase positive and WBC. Urinalysis grew Enterobacter pansensitive to all antibiotics Plan: -MRI brain stroke protocol and EEG pending -Neurochecks every 4 hours -Neurology consulted, appreciate recommendations -IV labetalol 10 mg every 4 hours, SBP less than 120 -IV ceftriaxone #CAD s/p CABG #Heart block s/p pacemaker insertion [September 2024] - Pacemaker interrogated and sent to [facility] - Medical records requested from Dr. Metha's office - [facility] Weigher, Dr. Marks cleared patient for MRI. However MRI department will have to switch pacemaker to MRI mode or request [employer] rep to adjust. - Resumed home aspirin and Plavix #ESRD on HD via [facility] PermCath M/W/ For hemodialysis as per nephrology recommendations. Dr Awad consulted #Normocytic Anemia DDx: OLIVER, anemia of chronic disease -Recommend Epogen during hemodialysis. Monitor CBC and for signs of bleeding #IDDM type II [5.6%] #Diabetic gastroparesis -Insulin sliding scale Q6 hourly as needed. -Metoclopramide 10 Mg IV every 8 hourly as needed - Hypoglycemia protocol #Depression - Continue duloxetine 30 mg p.o. twice daily DVT prophylaxis: Heparin GI prophylaxis: Not indicated Diet: Started on clear liquid, passed nurse swallow Lines: Peripheral IV Code status: Full code Case discussed with Attending Dr. Irving. Campbell Gonzalez PGY1 Disclaimer: This note was dictated by speech recognition. Minor errors in web merchant may be present due to voice recognition software. Attending Provider Attestation/Addendum I have discussed and was present for the essential components of the history, physical examination, diagnosis, and treatment plan with the resident. I agree with the patient's care as documented by the resident and amended herein by me. Calos Irving DO. Although this document has been carefully reviewed, there may still be some phonetic and other typographical errors. These errors are purely grammatical due to imperfections in the software program and should not be construed in any way to compromise the substance of the patient's medical care during this visit.
[2025-02-20] MEDS: DULoxetine HCL 30 MG CAPSULE PO (21:14)
[2025-02-20] MEDS: CLOPIDOGREL BISULFATE 75 MG TABLET PO (21:14)
[2025-02-20] MEDS: ATORVASTATIN CALCIUM 20 MG TABLET 80 MG PO (21:14)
[2025-02-20] MEDS: ASPIRIN EC 81 MG TABEC PO (21:15)
[2025-02-20] MEDS: MELATONIN 3 MG TABLET PO (21:15)
[2025-02-20] MEDS: ONDANSETRON INJ 2 MG/ML INJ 2 ML 4 MG IVP (22:53)
--- NOTE | 2025-02-20 23:27 | PD.NEUROPROG ---
Documentation for date of: 02/20/25 Subjective Subjective Interval history: Patient is in telemetry today. No seizures or myoclonic jerks after admission reported. She is awake, talkative today, not able to move her UE. Exam - Neurology Vital Signs Temp Pulse Resp BP Pulse Ox O2 Del Method O2 Flow Rate 98.0 F 90 20 139/81 H 94 L Room Air 2 02/20/25 20:00 02/20/25 21:20 02/20/25 20:00 02/20/25 21:20 02/20/25 20:00 02/20/25 20:00 02/19/25 18:34 FiO2 2 02/19/25 05:24 Narrative Exam GENERAL APPEARANCE: Well developed, well-nourished in no acute distress. HEENT: Normocephalic, atraumatic, extraocular movements intact. Pupils: Equal reacting to light and accommodation NECK: Supple, no JVD or bruits. CARDIOVASULAR: Heart: S1, S2 heard, irregular without S3-S4 or murmur no rubs or gallops. LUNGS/CHEST: Clear to auscultation bilaterally. No rails, rhonchi, or wheezing. Normal inspection. ABDOMEN: Soft, nontender, with normal bowel sounds. No pulsatile masses. No rebound, rigidity, or guarding. Normal inspection and palpation. EXTREMITIES: Normal inspection and palpation. No edema, clubbing or cyanosis. SKIN: Warm and dry without rashes. Normal inspection. MUSCULOSKELETAL: No cervical, thoracic, lumbar or midline bony tenderness. Normal inspection. NEURO: Alert, awake and oriented x3. Cranial nerves: II through XII grossly intact. Speech and language: Normal with no dysarthria or dysphasia. Motor system: Tone and bulk: Normal: Strength: give way weakness in the LE and UE, moves the UE and LE distally. Deep tendon reflexes: 2+ bilaterally symmetrical. Plantar reflex: Downgoing bilaterally. Sensory system: Intact to pin prick sensation bilaterally. Coordination: limited, no tremors or myoclonic jerks noted. Gait: not tested. No signs of meningeal irritation noted. PSYCHIATRIC: normal mood and affect. Objective Labs 02/20/25 04:37 02/20/25 04:37 Labs: Laboratory Results - last 24 hr 02/20/25 02/20/25 04:27 04:37 WBC 25.5 H RBC 3.42 L Hgb 10.2 L Hct 30.2 L MCV 88 MCH 29.8 MCHC 33.8 RDW Std Deviation 59.7 H Plt Count 312 D Neut % (Auto) 83 H Lymph % (Auto) 9 L [place] % (Auto) 7 Eos % (Auto) 0 Baso % (Auto) 0 Neut # (Auto) 21.3 H Lymph # (Auto) 2.2 [place] # (Auto) 1.7 H Eos # (Auto) 0.0 Baso # (Auto) 0.1 Immature Gran # (Auto) 0.24 H Absolute Nucleated RBC 0.00 Immature Gran % 1 H Nucleated RBC % 0 Sodium 140 Potassium 3.6 D Chloride 102 Carbon Dioxide 25.0 Anion Gap 13 BUN 23 Creatinine 2.7 H D Estim Creat Clear Calc 17.7 L eGFR 19 L BUN/Creatinine Ratio 9 L Glucose [address] Glu mg/dL 114 Hemoglobin A1c 5.6 Calculated Osmolality 285 Calcium 9.6 Corrected Calcium 9.6 Phosphorus 5.3 H Magnesium 2.1 Total Bilirubin 0.4 AST 32 ALT 35 Alkaline Phosphatase 88 Total Protein 6.7 Albumin 4.2 Globulin 2.5 Albumin/Globulin Ratio 1.7 Triglycerides 103 Cholesterol 235 H LDL Cholesterol, Calc 141 H HDL Cholesterol 73 H Cholesterol/HDL Ratio 3.2 L TSH 0.65 Random Vancomycin 19.9 ABG Interpretation ABG results: 02/18/25 19:57 ABG pH 7.32 L ABG pCO2 50 H ABG pO2 45 L* ABG HCO3 26 ABG O2 Saturation 79 L ABG Base Excess -1 Assessment & Plan Assessment and plan (1) New onset seizure without head trauma: Status: Acute Assessment and plan: Likely secondary to posterior reversible encephalopathy syndrome: Uncontrolled hypertension. Continued with the blood pressure monitoring and control. FU with EEG and MRI brain. Hold off on Keppra and Lorazepam for now. (2) Diabetes: Status: Acute Assessment and plan: Check fingerstick glucose and sliding scale insulin (3) End stage renal disease on dialysis due to type 2 diabetes mellitus: Status: Acute Assessment and plan: On dialysis 3 days a week
[2025-02-21] VITALS (37 sets, daily range): BP systolic 57–187; BP diastolic 42–98; PULSE 73–104; RESP 17–23; TEMP 36.1–37; O2SAT 91–100; BMI 31.5; BMI 25.1; BMI 12.0
--- NOTE | 2025-02-21 | XR_ITS ---
Examinations: MRV brain without intravenous contrast. 3-D vascular reconstructions Date and time of exam: February 21, 2025 1153 hours INDICATIONS: Altered mental status beginning February 14, 2025 Technique: MRV brain images without contrast obtained, including 3-D postprocessing, vascular maximum intensity projection images Findings: All of the images are severely degraded by patient motion Transverse sinuses appear grossly intact with no convincing filling defects IMPRESSION: All of the images are severely degraded by patient motion Transverse sinuses appear grossly intact with no convincing filling defects
[2025-02-21] MEDS: METOCLOPRAMIDE INJ 5 MG/ML VIAL 2 ML IVP ×3 (00:40→12:20)
[2025-02-21] MEDS: LABETALOL INJ 5 MG/ML VIAL 20 ML 10 MG IVP ×3 (01:36→20:57)
--- NOTE | 2025-02-21 03:58 | XR_ITS ---
Examination: AP chest single view TECHNIQUE: AP portable semiupright chest single view Date and time: February 21, 2025, 0629 hours Comparison February 18, 2025 INDICATIONS: Hypoxia this morning. FINDINGS: No significant cardiac enlargement Stable position cardiac leads. Right internal jugular dialysis catheter tips SVC no pneumothorax No pneumonia or pulmonary edema Prominent osteopenia IMPRESSION: No pneumonia or pulmonary edema.
[2025-02-21 05:42] LABS: Basophils # (Auto) 0.1 Thou/mm3 (0.0-0.2); Basophils % (Auto) 0 % (0-2.5); Eosinophils % (Auto) 0 % (0-10); Hematocrit 29.2 % (36.0-46.0); Hemoglobin 9.6 g/dL (12.0-16.0); Immature Granulocytes % (Auto) 1 % (0-0); Immature Granulocytes Auto 0.24 Thou/mm3 (0.00-0.00); Lymphocytes # (Auto) 1.6 Thou/mm3 (1.0-4.8); Lymphocytes % (Auto) 10 % (10-50); Mean Corpuscular HGB Conc 32.9 g/dl (31.0-37.0); Mean Corpuscular Volume 91 fL (80-100); Monocytes # (Auto) 0.7 Thou/mm3 (0.0-0.8); Monocytes % (Auto) 4 % (0-12); Neutrophils # (Auto) 14.2 Thou/mm3 (1.8-7.7); Neutrophils % (Auto) 85 % (37-80); Nucleated Red Blood Cell % 0 /100 WBC (0); Platelet Count 333 Thou/mm3 (140-440); RDW Standard Deviation 62.4 fL (36.4-46.3); White Blood Count 16.7 Thou/mm3 (3.6-11.0)
[2025-02-21] MEDS: LIDOCAINE 5% 1 PATCH TOP (06:10)
[2025-02-21] MEDS: HEPARIN SOD INJ 5000 UNIT/ML VIAL SC ×3 (06:11→20:56)
[2025-02-21] MEDS: INSULIN LISPRO (AdmeLOG) 1 UNIT/0.01 ML UNIT SC (06:11)
[2025-02-21 06:12] LABS: Alanine Aminotransferase 31 U/L (10-49); Albumin, Serum 4.3 gm/dL (3.4-4.8); Alkaline Phosphatase 77 U/L (46-116); Anion Gap 14 (7-16); Aspartate Amino Transferase 24 U/L (0-34); BUN/Creatinine Ratio 11 Ratio (12-20); Bilirubin,Total 0.5 mg/dL (0.3-1.2); Blood Urea Nitrogen 44 mg/dL (9-23); Calcium 9.8 mg/dL (8.3-10.6); Calcium (Corrected) 9.8 mg/dL (8.5-10.1); Carbon Dioxide 24.4 mMol/L (20.0-31.0); Chloride 100 mMol/L (98-107); Creatinine (Component) 3.9 mg/dL (0.6-1.3); Estimated Creatinine Clearance 12.3 mL/min (>60); Globulin 2.1 gm/dL (2.3-3.5); Glucose 166 mg/dL (74-106); Magnesium 2.6 mg/dL (1.6-2.6); Osmolality,Calculated 290 (275-295); Potassium 4.2 mMol/L (3.4-5.1); Sodium 138 mMol/L (136-145); Total Protein 6.4 gm/dL (5.7-8.2); eGFR 12 See Note
--- NOTE | 2025-02-21 07:21 | ESCONSULT_ITS ---
RE: KAREN BARNES : 1960 DATE OF CONSULTATION: 02/20/2025 REASON FOR REFERRAL: ESRD management. REFERRING PHYSICIAN: Hospitalist. HISTORY OF PRESENT ILLNESS: This patient is a 64-year-old woman with past medical history significant for type 2 diabetes with nephropathy, neuropathy, retinopathy, hypertension, and atrial fibrillation with pacemaker placement. ESRD on dialysis every Monday, Monday, and Monday since 2021 who presented to the emergency room with altered level of consciousness. The patient had a similar episode way back in 11/2024 when she was diagnosed with PRES (posterior reversible encephalopathy syndrome). During that time, the patient's blood pressure was also elevated. After her blood pressure was controlled, she became more coherent. She had a CT of the head on 02/18/2025 and it did not reveal any acute hemorrhage, mass effect, or midline shift. Dr. Chan saw the patient and stated that altered level of consciousness is most likely secondary to recurrence of posterior reversible encephalopathy syndrome. It was postulated to be secondary to uncontrolled hypertension. The patient had dialysis yesterday, which she tolerated very well. She is doing much better today and denies any chest pain or shortness of breath. She answers questions accurately. PAST MEDICAL HISTORY: CAD, CABG, history of CVA with no residual weakness, type 2 diabetes, neuropathy, retinopathy, nephropathy, history of hypotension secondary to autonomic neuropathy, and history of gastroparesis. PAST SURGICAL HISTORY: PD catheter placement, pacemaker placement, CABG, and section. FAMILY HISTORY: Father has diabetes, hypertension, and ESRD. ALLERGIES: NO KNOWN DRUG ALLERGIES. CURRENT MEDICATIONS: 1. Acetaminophen. 2. Albumin. 3. Aspirin 81 mg at bedtime. 4. Atorvastatin 80 mg at bedtime. 5. Rocephin 1 g daily. 6. Clopidogrel 75 mg at bedtime. 7. Duloxetine 30 mg b.i.d. 8. Hydralazine 30 mg IV x1. 9. Lispro sliding scale. 10. Heparin 5000 units subcutaneously q.8h. 11. Labetalol 10 mg IV Eevery 4 hours p.r.n. 12. Levetiracetam 1 g p.o. x1. 13. Lorazepam 0.5 mg IV x1. 14. Ondansetron. 15. Zosyn 3.375 mg IV x1. PHYSICAL EXAMINATION: GENERAL: She is more awake and alert. VITAL SIGNS: Blood pressure of 148/86. HEENT: Anicteric sclerae. Normocephalic. NECK: Supple. No JVD. CHEST AND LUNGS: Symmetrical expansion. Clear breath sounds. HEART: Heart sounds without murmur. ABDOMEN: Soft and nontender. EXTREMITIES: No edema. LABORATORY DATA: Hemoglobin 10.2, platelet count 312,000. Sodium 140, potassium 3.6, chloride 102, CO2 25, BUN 23, creatinine 2.7, glucose 128, calcium 9.6, and phosphorus 5.3. ASSESSMENT: 1. End-stage renal disease. 2. Altered level of consciousness secondary to posterior reversible encephalopathy syndrome. 3. History of type 2 diabetes. 4. Hypertension. PLAN: The patient will be dialyzed again tomorrow. Continue neuro checks. Continue supportive treatment. DT: 21:17:53 TT: 22:34:00 Ref: [id number] - TID: [id number] MTDD
[2025-02-21] MEDS: ALBUMIN HUMAN 25% IVPB 25 GM/100 ML BTL IV (08:34)
--- NOTE | 2025-02-21 08:50 | PC.SS ---
Follow up note: IV blood pressure meds. Pending MRI.
--- NOTE | 2025-02-21 09:05 | CHAP ---
Responded to Rapid Response (09:05). Patient was in dialysis and was already being moved to her regular room (#[id number]) when I arrived. There was no need of a cloth printing utility worker.
[2025-02-21] MEDS: HEPARIN SOD INJ 1000 UNIT/ML VIAL 10 ML 3300 UNIT INDWELLCAT ×2 (09:10→19:23)
--- NOTE | 2025-02-21 09:22 | PC.NURSE ---
Dr. Awad notified of rapid response being call and pts HD stopping.
[2025-02-21] MEDS: DULoxetine HCL 30 MG CAPSULE PO (10:07)
[2025-02-21] MEDS: cefTRIAXone/D5w 1gm IV premix 1 GM/50 ML BAG IV (10:07)
--- NOTE | 2025-02-21 10:31 | XR_ITS ---
Examination: MRI brain without intravenous contrast. Date and time of exam: February 21, 2025 1134 hours Comparison November 29, 2024 INDICATIONS: Altered mental status beginning February 14, 2025 Technique: Multiple axial and sagittal images of the brain obtained. Siemens high-resolution 1.5 Sera short bore scanners utilized. Sagittal sections, T1-weighted, TR 500, TE 14, are performed. Axial sections proton-density and T2-weighted have been obtained. Inversion recovery axial images, TR 9, 260, TE 111, TI 2500. Diffusion weighted images, axial sections, TR 4800, TE 128, B value 1000 Axial sections, ADC map, TR 4800, TE 128 Findings: Enlargement of the sella turcica is not present. The optic chiasm and infundibular are not remarkable. Prepontine and interpeduncular cisterns are not enlarged. There is no localized enlargement of the medulla or chio. Fourth ventricle and cerebellar tonsils appear normal in position. No subacute area of hemorrhage density is seen. Mass in the cerebellopontine angle region is not evident. Globes symmetrical. Orbital musculature including medial lateral rectus muscles do not exhibit abnormality. Diffusion-weighted images demonstrate no focus of restricted diffusion. Increased white matter signal moderate Mass effect upon the ventricular system is not identified. Impression: Negative for acute hemorrhage, mass effect or midline shift No acute infarct
[2025-02-21] MEDS: LORazepam 2 MG/ML VIAL IVP (11:20)
--- NOTE | 2025-02-21 13:27 | ESPR_ITS ---
Documentation for date of: 02/21/25 Subjective Subjective Interval history: Patient had rapid response called earlier this morning Called in room #309 during dialysis for acute respiratory change blood pressure change, systolic blood pressure less than 90 patient was receiving dialysis. Patient mentation same, denies feeling any dizziness or lightheadedness. Dialysis was discontinued, after discontinuing dialysis patient's blood pressure improved. Change labetalol to As needed with parameters of SBP more than 160/DBP more than 100. Patient underwent MRI negative for acute hemorrhage mass effect or midline shift Patient was evaluated by speech therapy they recommend strict n.p.o. and GI consultation GI consulted, ordered videofluoroscopic study Exam Vital Signs Temp Pulse Resp BP Pulse Ox O2 Del Method O2 Flow Rate 98.6 F 90 17 114/65 99 Room Air 3 02/21/25 09:20 02/21/25 13:21 02/21/25 13:21 02/21/25 10:00 02/21/25 13:21 02/21/25 10:00 02/21/25 13:21 FiO2 2 02/19/25 05:24 Narrative Exam Constitutional:Alert, oriented x 3 and comfortable. Elderly female HEENT: Vision grossly intact. Patent nares. Trachea midline Respiratory: Chest normal on inspection and clear auscultation bilaterally. RIJ cath. Cardiovascular: S1 and S2 audible, RRR. No murmurs carotid bruit. No gross JVD. Abdominal: Soft, obese and non tender to palpation in all quadrants. BS + Genitourinary: No bladder tenderness, no flank pain. Normal to palpation Musculoskeletal: Extremities tone within normal limits. No LE edema. Neurological: CN II - XII grossly intact. Power 2/5 lower extremities, 3/5 upper extremities bilaterally. Skin: Warm, dry and intact. No apparent lesions. Psychiatric: Patient has good affect, is cooperative Objective Labs 02/21/25 05:12 02/21/25 05:12 Labs: Laboratory Results - last 24 hr 02/21/25 05:12 WBC 16.7 H D RBC 3.20 L Hgb 9.6 L Hct 29.2 L MCV 91 MCH 30.0 MCHC 32.9 RDW Std Deviation 62.4 H Plt Count 333 Neut % (Auto) 85 H Lymph % (Auto) 10 [place] % (Auto) 4 Eos % (Auto) 0 Baso % (Auto) 0 Neut # (Auto) 14.2 H Lymph # (Auto) 1.6 [place] # (Auto) 0.7 Eos # (Auto) 0.0 Baso # (Auto) 0.1 Immature Gran # (Auto) 0.24 H Absolute Nucleated RBC 0.00 Immature Gran % 1 H Nucleated RBC % 0 Sodium 138 Potassium 4.2 D Chloride 100 Carbon Dioxide 24.4 Anion Gap 14 BUN 44 H Creatinine 3.9 H D Estim Creat Clear Calc 12.3 L eGFR 12 L* BUN/Creatinine Ratio 11 L Glucose 166 H Calculated Osmolality 290 Calcium 9.8 Corrected Calcium 9.8 Magnesium 2.6 Total Bilirubin 0.5 AST 24 ALT 31 Alkaline Phosphatase 77 Total Protein 6.4 Albumin 4.3 Globulin 2.1 L Albumin/Globulin Ratio 2.0 ABG Interpretation ABG results: 02/18/25 19:57 ABG pH 7.32 L ABG pCO2 50 H ABG pO2 45 L* ABG HCO3 26 ABG O2 Saturation 79 L ABG Base Excess -1 Quality Measures Quality Measures none Assessment & Plan Assessment Current Active Medications: Generic Name Dose Route Start Last Admin Trade Name Freq PRN Reason Stop Dose Admin Acetaminophen 650 mg 02/20/25 07:12 Acetaminophen Supp 650 Mg Supp AL 03/21/25 13:40 Q6HR PRN FEVER 101.5 Aspirin 81 mg 02/20/25 21:00 02/20/25 21:15 Aspirin Ec 81 Mg Tabec PO 03/22/25 20:59 81 mg HS ALEX Administration Atorvastatin Calcium 80 mg 02/20/25 21:00 02/20/25 21:14 Atorvastatin Calcium 20 Mg Tablet PO 03/22/25 20:59 80 mg HS ALEX Administration Clopidogrel Bisulfate 75 mg 02/20/25 21:00 02/20/25 21:14 Clopidogrel Bisulfate 75 Mg Tablet PO 03/22/25 20:59 75 mg HS ALEX Administration Dextrose 50 ml 02/19/25 14:37 Dextrose 50%-Water Inj 50 Ml Syringe IV 03/21/25 14:36 Q15MIN PRN BG <50 OR BG <70 & pt unresponsive Duloxetine HCl 30 mg 02/20/25 21:00 02/21/25 10:07 Duloxetine Hcl 30 Mg Capsule PO 03/22/25 20:59 30 mg BID ALEX Administration Glucagon 1 mg 02/19/25 14:37 Glucagon Inj 1 Mg Vial IM Q15MIN PRN BG <70, and no IV access Heparin Sodium (Porcine) 3,300 unit 02/19/25 16:05 02/19/25 19:00 Heparin Sod Inj 1000 Unit/Ml Vial 10 Ml INDWELLCAT 03/05/25 16:04 3,300 unit X1 PRN Administration DIALYSIS Heparin Sodium (Porcine) 5,000 unit 02/21/25 09:00 02/21/25 10:07 Heparin Sod Inj 5000 Unit/Ml Vial SC 03/07/25 08:59 5,000 unit Q12HR ALEX Administration Albumin Human 25 gm in 100 mls @ 100 mls/min 02/19/25 16:05 02/21/25 08:34 Albuminar-25 Ivpb IV 100 mls/min PRN PRN Administration DIALYSIS Ceftriaxone Sodium/Dextrose 1 gm in 50 mls @ 100 mls/hr 02/19/25 20:31 02/21/25 10:07 Rocephin/D5w 1gm Iv Premix IV 02/26/25 20:30 100 mls/hr QDAY ALEX Administration Insulin Human Lispro 0 unit 02/19/25 14:45 02/21/25 12:40 Insulin Lispro (Admelog) 1 Unit/0.01 Ml Unit SC 03/21/25 14:44 Not Given Q6HR [facility] Protocol Labetalol HCl 10 mg 02/21/25 10:38 Labetalol Inj 5 Mg/Ml Vial 20 Ml IVP 03/22/25 17:59 Q4HR PRN SBP> 180 or DBP > 100 Metoclopramide HCl 5 mg 02/21/25 00:30 02/21/25 12:20 Metoclopramide Inj 5 Mg/Ml Vial 2 Ml IVP 03/23/25 00:29 5 mg Q6HR ALEX Administration Protocol Pharmacy Consult 1 each 02/19/25 13:58 Pharmacy Renal Dose Adjustment 1 Ea XX 03/21/25 13:57 PRN PRN CONSULT Valsartan 40 mg 02/22/25 09:00 Valsartan 40 Mg Tablet PO 03/24/25 08:59 QDAY ALEX Plan Summary: Patient is 60-year-old female with past medical history for primary hypertension, ESRD on hemodialysis M/W/F follows with Dr Awad., CAD status post CABG [2023], high degree heart block s/p pacemaker placement September 2024, history of recurrent UTIs, NIDDM type II [.4.6] and PRES syndrome presenting today with a chief complaint of altered mental status and abnormal movements. CT brain and CTA showed no signs of acute hemorrhage, mass effect or midline shift and no signs of large vessel occlusion. Patient had abnormal twitching movements and ED and was given loading dose of Keppra and lorazepam 2 Mg IV x 1. Patient will be admitted to the ICU for management of press syndrome and stroke rule out. #Acute encephalopathy, resolving #New onset seizures #Suspicion of PRES syndrome #Urinary tract infection Patient's became confused and twitching all over her body. CT brain and CTA showed no signs of LVO obstruction or hemorrhage. Patient was found to have urinary tract infection. Blood pressure 201/110 on admission. Urinalysis showed leukocyte esterase positive and WBC. Urinalysis grew Enterobacter pansensitive to all antibiotics Patient underwent MRI negative for acute hemorrhage mass effect or midline shift Plan: -Changed labetalol to as needed with parameters of SBP more than 160/DBP more than 100. -EEG pending -Neurochecks every 4 hours -Neurology consulted, appreciate recommendations -IV ceftriaxone #CAD s/p CABG #Heart block s/p pacemaker insertion [September 2024] - Pacemaker interrogated and sent to [employer] - Medical records requested from Dr. Mehta's office - Market Development Specialist, Dr. Marks cleared patient for MRI. However MRI department will have to switch pacemaker to MRI mode or request [employer] rep to adjust. - Resumed home aspirin and Plavix #Dysphagia Patient was evaluated by speech therapy they recommend strict n.p.o. and GI consultation GI consulted, ordered videofluoroscopic study #ESRD on HD via [facility] M/W/ For hemodialysis as per nephrology recommendations. Dr Awad consulted #Normocytic Anemia DDx: OLIVER, anemia of chronic disease -Recommend Epogen during hemodialysis. Monitor CBC and for signs of bleeding #IDDM type II [5.6%] #Diabetic gastroparesis -Insulin sliding scale Q6 hourly as needed. -Metoclopramide 10 Mg IV every 8 hourly as needed - Hypoglycemia protocol #Depression - Continue duloxetine 30 mg p.o. twice daily DVT prophylaxis: Heparin GI prophylaxis: Not indicated Diet: Strict NPO Lines: Peripheral IV Code status: Full code Case discussed with Attending Dr. Irving. Campbell Gonzalez PGY1 Disclaimer: This note was dictated by speech recognition. Minor errors in pain management nurse practitioner may be present due to voice recognition software. Attending Provider Attestation/Addendum I have discussed and was present for the essential components of the history, physical examination, diagnosis, and treatment plan with the resident. I agree with the patient's care as documented by the resident and amended herein by me. Calos Irving DO. Patient seen and evaluated this AM. STEMI STEMI she saw I have discussed and was present for the essential components of the history, physical examination, diagnosis, and treatment plan with the resident. I agree with the patient's care as documented by the resident and amended herein by me. Calos Irving DO. Patient seen and evaluated this AM. No acute events overnight, pulse rate 107- 150 however, WBC downtrending to 16, hemoglobin stable 9.6, BUN 44 and creatinine of 3.9. During dialysis today, patient did have a rapid response called for hypotension, albumin was given however the dialysis session had to be terminated after approximately 1 hour. 500 cc fluid removed however it was given back relatively. MRI brain performed today negative for any acute intracranial pathology, no acute infarct noted, no mass effect on the ventricular system noted, largely unremarkable, and MRI venogram was also performed however the images were severely degraded by the patient's motion, the transverse sinuses appeared grossly intact however. Although this document has been carefully reviewed, there may still be some phonetic and other typographical errors. These errors are purely grammatical due to imperfections in the software program and should not be construed in any way to compromise the substance of the patient's medical care during this visit. The patient's UTI, she will remain on ceftriaxone for now, urine cultures demonstrated Enterobacter erogenous, sensitive to ceftriaxone. Speech therapy did evaluate the patient today however recommended to remain n.p.o. for pharyngeal dysphagia. Will consult gastroenterology and order videofluoroscopy to reassess the patient's swallowing function. The patient's breath, blood pressures been very labile on his visit, we will attempt change parameters, optimal goal is approximately 140, can start oral medication once it is determined the patient's dysphagia has improved and the patient can swallow safely. For now we will stick to IV medication. For now the patient will remain on aspirin, statin, Plavix per neurology recommendations. Although this document has been carefully reviewed, there may still be some phonetic and other typographical errors. These errors are purely grammatical due to imperfections in the software program and should not be construed in any way to compromise the substance of the patient's medical care during this visit.
--- NOTE | 2025-02-21 16:22 | PC.SS ---
Follow up note: SS received call from ELAN Chase who states he is recommending Acute Rehab and family is agreeable (pt and ).
--- NOTE | 2025-02-21 20:21 | PD.IMCONS ---
HPI Data of Consult Requesting Physician: Finn Irving DO Primary Care Provider: DARIAN Winter(ARIACH) Consult Narrative Reason for consult: Coffee-ground hematemesis, dysphagia History of present illness: 64 years old female who has history of end-stage renal disease on hemodialysis MWF coronary artery disease status post CABG recent placement of a permanent cardiac pacemaker diabetes mellitus type 2 and press syndrome I been consulted for coffee-ground hematemesis as per patient has solid dysphagia Patient presented with chief complaints of altered mental status and abnormal movements MRI of the brain was negative CT scan of the head and neck showed 80% stenosis of the left vertebral artery Videofluoroscopy is pending She does have a history of gastroparesis on the previous endoscopy when she presented last time with intractable nausea vomiting to the hospital cc:: cc: Finn Irving DO Review of Systems Review of Systems Systems Reviewed: All systems reviewed, normal except as documented Past Medical History Surgical History OTHER SURGICAL HX: As in the history of present illness Meds Home Medications and Allergies Home Medications ?Medication ?Instructions ?Recorded ?Confirmed ?Type aspirin 81 mg tablet,delayed 81 mg PO HS 11/28/24 02/19/25 History release (Adult Low Dose Aspirin) atorvastatin 40 mg tablet 40 mg PO HS 11/28/24 02/19/25 History clopidogrel 75 mg tablet 75 mg PO HS 11/28/24 02/19/25 History duloxetine 30 mg capsule,delayed 30 mg PO BID 11/28/24 02/19/25 History release (Cymbalta) linagliptin 5 mg tablet (Tradjenta) 5 mg PO HS 11/28/24 02/19/25 History ascorbate calcium (vitamin C) 500 1 g PO HS 12/01/24 02/19/25 History mg tablet vitamin B complex-vitamin C-folic 1 tab PO QDAY 12/01/24 02/19/25 History acid 0.8 mg tablet meclizine 25 mg tablet 25 mg PO PRN PRN dizziness 01/08/25 02/19/25 History alprazolam 1 mg tablet 1 mg PO PRN PRN anxiety 02/19/25 02/21/25 History cetirizine 10 mg capsule (All Day 10 mg PO QDAY 02/19/25 02/19/25 History Allergy (cetirizine)) metoclopramide HCl 10 mg tablet 10 mg PO Q4H PRN nausea 02/19/25 02/19/25 History (Reglan) nitrofurantoin 100 mg capsule 100 mg PO Q24H 02/19/25 02/19/25 History pantoprazole 40 mg tablet,delayed 40 mg PO HS 02/19/25 02/19/25 History release sevelamer carbonate 800 mg tablet 800 mg PO TID 02/19/25 02/19/25 History (Renvela) Allergies Allergy/AdvReac Type Severity Reaction Status Date / Time No Known Allergies Allergy Verified 01/07/25 20:14 Exam Vital Signs Temp Pulse Resp BP Pulse Ox O2 Del Method O2 Flow Rate 98.3 F 83 18 134/85 H 100 Nasal Cannula 2 02/21/25 19:02 02/21/25 19:06 02/21/25 19:02 02/21/25 19:06 02/21/25 19:02 02/21/25 16:00 02/21/25 19:02 FiO2 2 02/19/25 05:24 Constitutional Comments: Chronically ill-appearing Routine Respiratory Exam Comments: Normal to auscultation Routine Abdominal Exam Comments: Soft nontender Results Labs 02/21/25 05:12 02/21/25 05:12 Labs: Short CBC 02/21/25 Range/Units 05:12 WBC 16.7 H D (3.6-11.0) Thou/mm3 Hgb 9.6 L (12.0-16.0) g/dL Hct 29.2 L (36.0-46.0) % Plt Count 333 (140-440) Thou/mm3 BMP 02/21/25 05:12 Sodium 138 Potassium 4.2 D Chloride 100 Carbon Dioxide 24.4 BUN 44 H Creatinine 3.9 H D Glucose 166 H Calcium 9.8 Liver Function 02/21/25 Range/Units 05:12 Total Bilirubin 0.5 (0.3-1.2) mg/dL AST 24 (0-34) U/L ALT 31 (10-49) U/L Alkaline Phosphatase 77 (46-116) U/L Albumin 4.3 (3.4-4.8) gm/dL ABG Interpretation ABG results: 02/18/25 19:57 ABG pH 7.32 L ABG pCO2 50 H ABG pO2 45 L* ABG HCO3 26 ABG O2 Saturation 79 L ABG Base Excess -1 Assessment and Plan Additional Assessment & Plan Additional Plan: # Dysphagia progressive videofluoroscopy pending # Coffee-ground hematemesis etiology uncertain Plan Fiberoptic esophagogastroduodenoscopy with possible biopsy possible therapeutic intervention under intravenous moderate sedation Consent obtained and the procedure been scheduled for tomorrow Other medical problems include End-stage renal disease on hemodialysis MWF Coronary artery disease status post CABG Status post placement of a permanent cardiac pacemaker Diabetes mellitus type 2 Pres syndrome Thank you very much for the opportunity to participate in the care of this patient
[2025-02-21] MEDS: DiphenhydrAMINE INJ 50 MG/ML VIAL 12.5 MG IVP (20:56)
--- NOTE | 2025-02-21 22:51 | ESPR_ITS ---
Documentation for date of: 02/21/25 Subjective Subjective Interval history: Patient seen and examined at the bedside. No new cardiac complaints. Pacemaker check completed and no new events since implantation. Patient pacemaker was MRI compatible in the leads as well. MRI was negative for acute hemorrhage mass effect or midline shift and there was no acute infarct. During examination patient states her right upper extremity strength is improved and is around 4/5 but still has some weakness on the left upper extremity. Patient also states that swallowing has improved and was able to drink sips of water without any major problems. Working diagnosis possible press syndrome. Recommended to keep the blood pressure with diastolic blood pressure over 90 to 100 mmHg and a systolic of around 150 to 160 mmHg and if patient continues to improve then we will need further aggressive treatment of the blood pressure. Exam Vital Signs Temp Pulse Resp BP Pulse Ox O2 Del Method O2 Flow Rate 98.1 F 88 18 176/96 H 99 Nasal Cannula 2 02/21/25 20:00 02/21/25 22:20 02/21/25 22:20 02/21/25 20:57 02/21/25 22:20 02/21/25 20:00 02/21/25 22:20 FiO2 2 02/19/25 05:24 Narrative Exam General: Alert and oriented x3. In no acute distress. Eyes: Pupils are equal and reactive to light bilaterally. HEENT: Atraumatic, normocephalic. No JVD noted. Mucosa moist. Cardiovascular: Sternal scar appears clean. Normal S1 and S2. Normal rate and regular rhythm. No murmurs appreciated. No peripheral pitting edema noted. Respiratory: No respiratory distress. Lungs are clear to auscultation bilaterally. No wheezing or crackles heard. Abdomen: Soft, nontender, nondistended. Skin: No rash. Warm to touch. Musculoskeletal: No gross injuries. Able to move all 4 extremities. Neuro: Alert and oriented x3. 2-3/5 power in all the extremities. Cranial nerves appear to be intact Psych: Normal affect and mood Objective Labs 02/22/25 06:05 02/22/25 06:05 Labs: Laboratory Results - last 24 hr 02/21/25 05:12 WBC 16.7 H D RBC 3.20 L Hgb 9.6 L Hct 29.2 L MCV 91 MCH 30.0 MCHC 32.9 RDW Std Deviation 62.4 H Plt Count 333 Neut % (Auto) 85 H Lymph % (Auto) 10 [place] % (Auto) 4 Eos % (Auto) 0 Baso % (Auto) 0 Neut # (Auto) 14.2 H Lymph # (Auto) 1.6 [place] # (Auto) 0.7 Eos # (Auto) 0.0 Baso # (Auto) 0.1 Immature Gran # (Auto) 0.24 H Absolute Nucleated RBC 0.00 Immature Gran % 1 H Nucleated RBC % 0 Sodium 138 Potassium 4.2 D Chloride 100 Carbon Dioxide 24.4 Anion Gap 14 BUN 44 H Creatinine 3.9 H D Estim Creat Clear Calc 12.3 L eGFR 12 L* BUN/Creatinine Ratio 11 L Glucose 166 H Calculated Osmolality 290 Calcium 9.8 Corrected Calcium 9.8 Magnesium 2.6 Total Bilirubin 0.5 AST 24 ALT 31 Alkaline Phosphatase 77 Total Protein 6.4 Albumin 4.3 Globulin 2.1 L Albumin/Globulin Ratio 2.0 ABG Interpretation ABG results: 02/18/25 19:57 ABG pH 7.32 L ABG pCO2 50 H ABG pO2 45 L* ABG HCO3 26 ABG O2 Saturation 79 L ABG Base Excess -1 Assessment & Plan A&P Narrative 60-year-old female male with a past medical history of CAD s/p CABG in May 2024 after elective cardiac authorization for a positive stress test, status post pacemaker placed in 2024 for symptomatic AV block, stage renal disease on hemodialysis on Monday and Monday, type 2 diabetes mellitus, history of gastric sleeve operation, 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 Cardiology consulted for pacemaker evaluation as the patient will need an MRI brain as recommended by neurology. 1. Symptomatic bradycardia secondary to AV block and status post pacemaker- [employer] placed in September 2024 2. Altered mental status 3. Acute metabolic encephalopathy with possible pres syndrome versus new onset seizures versus hypertensive encephalopathy 4. Hypertensive emergency 4. CAD status post CABG in May 2025 5. End-stage renal disease on hemodialysis Monday 6. Chronic anemia 7. Type 2 diabetes mellitus 8. Obesity status post gastric sleeve surgery 9. Diabetic gastroparesis 10. Depression Patient presented with altered mental status and broad differential at the present point of time including metabolic encephalopathy and hypertensive encephalopathy versus possible press syndrome. Patient does have some neurological deficits with only 2-3+ per bilaterally and has dysphagia. Neurology was consulted and recommended EEG along with MRI. Further management of altered mental status as per the neurology team. Patient does have a pacemaker placed in [address] Allred in [place] for symptomatic bradycardia with AV block. Patient apparently did not follow-up with them only once in follows up with also he the regular chronometer assembler and adjuster as outpatient but the primary team unable to obtain pacemaker details to have clearance for the MRI. Family informed that patient does have a [employer] pacemaker and will recontact [employer] service line for side effect on- call device check and it showed patient has excellent battery and it has been only 3 months since placement. All the sensitivities, impedance and thresholds of the pacemaker are in the normal range. Baseline rate is 60 and upper limit for tracking was at 120 bpm. There has been no new events since the placement of the pacemaker. Pacemaker interrogation placed in the chart and patient has an MRI safe device as well as the leads and form completed for clearance for MRI. Patient is scheduled for the MRI today. Patient does have a history of CAD status post CABG in May 2024 with an active cardiac catheterization after positive stress test which was done as part of the preoperative workup. Patient denies any chest pain chest pressure or other cardiac in place. Troponins have been negative and EKG without any acute ST changes. Continue aspirin, Plavix as well as statin and beta-lauren. Patient did present with hypertensive emergency with altered mental status and possible metabolic versus hypertensive encephalopathy. Patient initial blood pressure was 210/110 mmHg. The patient has a possible diagnosis of press syndrome that was diagnosed by neurology. Trying to rule out stroke as well as seizures with an EEG.. Recommend aggressive control of blood pressure and to keep the diastolic blood pressure around 90-100 mmHg as per the recommendations. Recommend not to decrease more than 25% of the systolic blood pressure in the first 24 hours. 02/22/2024: Pacemaker check completed and no new events since implantation. Patient pacemaker was MRI compatible in the leads as well. MRI was negative for acute hemorrhage mass effect or midline shift and there was no acute infarct. During examination patient states her right upper extremity strength is improved and is around 4/5 but still has some weakness on the left upper extremity. Patient also states that swallowing has improved and was able to drink sips of water without any major problems. Working diagnosis possible press syndrome. Recommended to keep the blood pressure with diastolic blood pressure over 90 to 100 mmHg and a systolic of around 150 to 160 mmHg and if patient continues to improve then we will need further aggressive treatment of the blood pressure. Management of rest of the medical conditions as per primary team and other consultants. Thank you for the consult and allowing me to participate in the care of the patient. Cardiology will continue to follow. Zaheer Marks M.D. Interventional Cardiology Time Spent With Patient Time: Total time spent is greater than 50% in coordination of care (as documented) at patient's floor/unit and/or counseling patient:
--- NOTE | 2025-02-21 22:56 | ESPR_ITS ---
Documentation for date of: 02/21/25 Subjective Subjective Interval history: Patient is in telemetry today. No seizures or myoclonic jerks after admission reported. She is awake, talkative today, UE weakness noted. Exam - Neurology Vital Signs Temp Pulse Resp BP Pulse Ox O2 Del Method O2 Flow Rate 98.1 F 88 18 176/96 H 99 Nasal Cannula 2 02/21/25 20:00 02/21/25 22:20 02/21/25 22:20 02/21/25 20:57 02/21/25 22:20 02/21/25 20:00 02/21/25 22:20 FiO2 2 02/19/25 05:24 Narrative Exam GENERAL APPEARANCE: Well developed, well-nourished in no acute distress. HEENT: Normocephalic, atraumatic, extraocular movements intact. Pupils: Equal reacting to light and accommodation NECK: Supple, no JVD or bruits. CARDIOVASULAR: Heart: S1, S2 heard, irregular without S3-S4 or murmur no rubs or gallops. LUNGS/CHEST: Clear to auscultation bilaterally. No rails, rhonchi, or wheezing. Normal inspection. ABDOMEN: Soft, nontender, with normal bowel sounds. No pulsatile masses. No rebound, rigidity, or guarding. Normal inspection and palpation. EXTREMITIES: Normal inspection and palpation. No edema, clubbing or cyanosis. SKIN: Warm and dry without rashes. Normal inspection. MUSCULOSKELETAL: No cervical, thoracic, lumbar or midline bony tenderness. Normal inspection. NEURO: Alert, awake and oriented x3. Cranial nerves: II through XII grossly intact. Speech and language: Normal with no dysarthria or dysphasia. Motor system: Tone and bulk: Normal: Strength: give way weakness in the LE and UE, moves the UE and LE distally. Deep tendon reflexes: 2+ bilaterally symmetrical. Plantar reflex: Downgoing bilaterally. Sensory system: Intact to pin prick sensation bilaterally. Coordination: limited, no tremors or myoclonic jerks noted. Gait: not tested. No signs of meningeal irritation noted. PSYCHIATRIC: normal mood and affect. Objective Labs 02/21/25 05:12 02/21/25 05:12 Labs: Laboratory Results - last 24 hr 02/21/25 05:12 WBC 16.7 H D RBC 3.20 L Hgb 9.6 L Hct 29.2 L MCV 91 MCH 30.0 MCHC 32.9 RDW Std Deviation 62.4 H Plt Count 333 Neut % (Auto) 85 H Lymph % (Auto) 10 [place] % (Auto) 4 Eos % (Auto) 0 Baso % (Auto) 0 Neut # (Auto) 14.2 H Lymph # (Auto) 1.6 [place] # (Auto) 0.7 Eos # (Auto) 0.0 Baso # (Auto) 0.1 Immature Gran # (Auto) 0.24 H Absolute Nucleated RBC 0.00 Immature Gran % 1 H Nucleated RBC % 0 Sodium 138 Potassium 4.2 D Chloride 100 Carbon Dioxide 24.4 Anion Gap 14 BUN 44 H Creatinine 3.9 H D Estim Creat Clear Calc 12.3 L eGFR 12 L* BUN/Creatinine Ratio 11 L Glucose 166 H Calculated Osmolality 290 Calcium 9.8 Corrected Calcium 9.8 Magnesium 2.6 Total Bilirubin 0.5 AST 24 ALT 31 Alkaline Phosphatase 77 Total Protein 6.4 Albumin 4.3 Globulin 2.1 L Albumin/Globulin Ratio 2.0 ABG Interpretation ABG results: 02/18/25 19:57 ABG pH 7.32 L ABG pCO2 50 H ABG pO2 45 L* ABG HCO3 26 ABG O2 Saturation 79 L ABG Base Excess -1 Assessment & Plan Assessment and plan (1) New onset seizure without head trauma: Status: Acute Assessment and plan: Likely secondary to posterior reversible encephalopathy syndrome: Uncontrolled hypertension. Continued with the blood pressure monitoring and control. MRI brain: negative for acute stroke Hold off on Keppra and Lorazepam for now. Reassured her regarding the results, encouraged her to move the UE. (2) Diabetes: Status: Acute Assessment and plan: Check fingerstick glucose and sliding scale insulin (3) End stage renal disease on dialysis due to type 2 diabetes mellitus: Status: Acute Assessment and plan: On dialysis 3 days a week
--- NOTE | 2025-02-21 23:12 | ESPR_ITS ---
RE: KAREN BARNES : 1960 DATE OF SERVICE: 02/21/2025 HISTORY OF PRESENT ILLNESS: Briefly, she is a 64-year-old woman with type 2 diabetes with nephropathy, neuropathy and retinopathy, hypertension, atrial fibrillation with pacemaker placement, and ESRD, on dialysis every Monday, Monday and Monday, who presented to emergency room on 02/19/2025 with high blood pressure and altered level of consciousness. The patient has a recurrence of her previous PRES. CT scan of the brain did not show any mass, acute hemorrhage or midline shift. The patient was doing better yesterday after blood pressures were controlled; however, this morning started becoming more confused and not able to move her both upper and lower extremities. The patient was briefly dialyzed, but due to her low blood pressures, it was stopped. She also had another brain MRI done with IV contrast today. CURRENT MEDICATIONS: 1. Acetaminophen. 2. Albumin. 3. Aspirin. 4. Atorvastatin. 5. Ceftriaxone. 6. Plavix 75 mg at bedtime. 7. Diphenhydramine. 8. Cymbalta 30 mg b.i.d. 9. Heparin 5000 units subcutaneously q.13. 10. Lispro sliding scale. 11. Labetalol 5 mg IV p.r.n. 12. Lorazepam. 13. Magnesium. 14. Melatonin. 15. Metoclopramide. PHYSICAL EXAMINATION: General: Awake, arousable, follows commands, not able to move upper and lower extremities with ease. Vital Signs: Blood pressure of 177/96, later on 134/85 and O2 saturation 99% on 2 L. HEENT: Anicteric sclerae. Normocephalic. Neck: Supple. No JVD. Chest and Lungs: Symmetric expansion. Clear breath sounds. Cardiac: Without murmur. Abdomen: Thin and soft. Extremities: No edema. LABORATORY DATA: Hemoglobin 9.6, WBC 15,600, and platelet count 233,000. Sodium 138, potassium 4.2, chloride 100, CO2 is 24.4, BUN 44, creatinine 0.9, glucose 166, and calcium 9.8. ASSESSMENT: 1. End-stage renal disease. 2. Altered level of consciousness secondary to posterior reversible encephalopathy syndrome. 3. History of type 2 diabetes. 4. Hypertension. 5. Inability to move upper and lower extremities. PLAN: We are still waiting for the result of the MRI of the brain with IV contrast. The patient will be dialyzed today as it is also possible that she still has some medications provided to her while she was in ICU and has not been cleared totally by dialysis as she was just briefly dialyzed today. The patient will be dialyzed again today and we will not remove as much fluids as we intended to do initially. DT: 22:30:06 TT: 23:11:00 Ref: [id number] - TID: [id number] MTDD
[2025-02-22] VITALS (21 sets, daily range): BP systolic 118–192; BP diastolic 61–105; PULSE 77–94; RESP 12–25; TEMP 36.1–36.8; O2SAT 93–99; BMI 25.1
[2025-02-22] MEDS: METOCLOPRAMIDE INJ 5 MG/ML VIAL 2 ML IVP ×4 (00:11→18:50)
[2025-02-22 06:40] LABS: Basophils # (Auto) 0.1 Thou/mm3 (0.0-0.2); Basophils % (Auto) 1 % (0-2.5); Eosinophils # (Auto) 0.1 Thou/mm3 (0.0-0.5); Eosinophils % (Auto) 1 % (0-10); Hematocrit 27.3 % (36.0-46.0); Immature Granulocytes % (Auto) 1 % (0-0); Immature Granulocytes Auto 0.16 Thou/mm3 (0.00-0.00); Lymphocytes # (Auto) 2.2 Thou/mm3 (1.0-4.8); Lymphocytes % (Auto) 18 % (10-50); Mean Corpuscular Hemoglobin 29.7 pg (25.0-35.0); Mean Corpuscular Volume 90 fL (80-100); Monocytes # (Auto) 1.2 Thou/mm3 (0.0-0.8); Monocytes % (Auto) 9 % (0-12); Neutrophils % (Auto) 71 % (37-80); Nucleated Red Blood Cell % 0 /100 WBC (0); Platelet Count 268 Thou/mm3 (140-440); RDW Standard Deviation 58.9 fL (36.4-46.3); Red Blood Count 3.03 Miln/mm3 (4.00-5.20); White Blood Count 12.7 Thou/mm3 (3.6-11.0)
[2025-02-22 07:18] LABS: Alanine Aminotransferase 23 U/L (10-49); Albumin, Serum 4.2 gm/dL (3.4-4.8); Albumin/Globulin Ratio 1.9 (1.2-2.2); Alkaline Phosphatase 69 U/L (46-116); Anion Gap 13 (7-16); Aspartate Amino Transferase 19 U/L (0-34); BUN/Creatinine Ratio 7 Ratio (12-20); Bilirubin,Total 0.7 mg/dL (0.3-1.2); Blood Urea Nitrogen 22 mg/dL (9-23); Calcium 9.2 mg/dL (8.3-10.6); Calcium (Corrected) 9.2 mg/dL (8.5-10.1); Carbon Dioxide 25.5 mMol/L (20.0-31.0); Chloride 102 mMol/L (98-107); Estimated Creatinine Clearance 17.7 mL/min (>60); Globulin 2.2 gm/dL (2.3-3.5); Glucose 119 mg/dL (74-106); Magnesium 2.3 mg/dL (1.6-2.6); Osmolality,Calculated 283 (275-295); Potassium 3.6 mMol/L (3.4-5.1); Sodium 140 mMol/L (136-145); Total Protein 6.4 gm/dL (5.7-8.2); eGFR 17 See Note
[2025-02-22] MEDS: HEPARIN SOD INJ 5000 UNIT/ML VIAL SC ×2 (09:31→20:13)
[2025-02-22] MEDS: cefTRIAXone/D5w 1gm IV premix 1 GM/50 ML BAG IV (09:32)
[2025-02-22] MEDS: DULoxetine HCL 30 MG CAPSULE PO ×2 (09:33→20:13)
--- NOTE | 2025-02-22 13:18 | PD.RESPRO ---
Documentation for date of: 02/22/25 Subjective Subjective Interval history: Patient seen and examined at bedside. Patient is pleasant and engages in conversation actively, able to lift her right arm. Still has some weakness in the left. MRI negative, no significant findings for acute CVA. Was seen by gastroenterology yesterday for dysphagia, scheduled for EGD today, will keep n.p.o. Patient was reassessed by speech therapist, per speech patient's dysphagia has improved compared to yesterday, patient can tolerate diet. Though we will still pursue to obtain videofluoroscopic study on Monday. Patient did receive dialysis later in the afternoon yesterday for 2 hours 4 minutes, no fluid was removed. Nephrology is following Will continue with IV labetalol for today with goal of SBP less than 140 Exam Vital Signs Temp Pulse Resp BP Pulse Ox O2 Del Method O2 Flow Rate 97.3 F 77 16 118/61 96 Nasal Cannula 2 02/22/25 08:00 02/22/25 09:01 02/22/25 09:01 02/22/25 08:00 02/22/25 09:01 02/22/25 08:00 02/22/25 09:01 FiO2 2 02/22/25 04:00 Narrative Exam Constitutional:Alert, oriented x 3 and comfortable. Elderly female HEENT: Vision grossly intact. Patent nares. Trachea midline Respiratory: Chest normal on inspection and clear auscultation bilaterally. RIJ cath. Cardiovascular: S1 and S2 audible, RRR. No murmurs carotid bruit. No gross JVD. Abdominal: Soft, obese and non tender to palpation in all quadrants. BS + Genitourinary: No bladder tenderness, no flank pain. Normal to palpation Musculoskeletal: Extremities tone within normal limits. No LE edema. Neurological: Alert and oriented x 3, confused at times, CN II - XII grossly intact. Power improved in right upper extremity, decreased power noted in left upper extremity. Skin: Warm, dry and intact. No apparent lesions. Psychiatric: Patient has good affect, is cooperative Objective Labs 02/22/25 06:05 02/22/25 06:05 Labs: Laboratory Results - last 24 hr 02/22/25 06:05 WBC 12.7 H RBC 3.03 L Hgb 9.0 L Hct 27.3 L MCV 90 MCH 29.7 MCHC 33.0 RDW Std Deviation 58.9 H Plt Count 268 D Neut % (Auto) 71 Lymph % (Auto) 18 [place] % (Auto) 9 Eos % (Auto) 1 Baso % (Auto) 1 Neut # (Auto) 9.0 H Lymph # (Auto) 2.2 [place] # (Auto) 1.2 H Eos # (Auto) 0.1 Baso # (Auto) 0.1 Immature Gran # (Auto) 0.16 H Absolute Nucleated RBC 0.00 Immature Gran % 1 H Nucleated RBC % 0 Sodium 140 Potassium 3.6 D Chloride 102 Carbon Dioxide 25.5 Anion Gap 13 BUN 22 Creatinine 3.0 H D Estim Creat Clear Calc 17.7 L eGFR 17 L BUN/Creatinine Ratio 7 L Glucose 119 H Calculated Osmolality 283 Calcium 9.2 Corrected Calcium 9.2 Magnesium 2.3 Total Bilirubin 0.7 AST 19 ALT 23 Alkaline Phosphatase 69 Total Protein 6.4 Albumin 4.2 Globulin 2.2 L Albumin/Globulin Ratio 1.9 ABG Interpretation ABG results: 02/18/25 19:57 ABG pH 7.32 L ABG pCO2 50 H ABG pO2 45 L* ABG HCO3 26 ABG O2 Saturation 79 L ABG Base Excess -1 Quality Measures Quality Measures none Assessment & Plan Assessment Current Active Medications: Generic Name Dose Route Start Last Admin Trade Name Freq PRN Reason Stop Dose Admin Acetaminophen 650 mg 02/20/25 07:12 Acetaminophen Supp 650 Mg Supp MN 03/21/25 13:40 Q6HR PRN FEVER 101.5 Aspirin 81 mg 02/20/25 21:00 02/21/25 20:30 Aspirin Ec 81 Mg Tabec PO 03/22/25 20:59 Not Given HS ALEX Atorvastatin Calcium 80 mg 02/20/25 21:00 02/21/25 20:30 Atorvastatin Calcium 20 Mg Tablet PO 03/22/25 20:59 Not Given HS ALEX Clopidogrel Bisulfate 75 mg 02/20/25 21:00 02/21/25 20:30 Clopidogrel Bisulfate 75 Mg Tablet PO 03/22/25 20:59 Not Given HS ALEX Dextrose 50 ml 02/19/25 14:37 Dextrose 50%-Water Inj 50 Ml Syringe IV 03/21/25 14:36 Q15MIN PRN BG <50 OR BG <70 & pt unresponsive Duloxetine HCl 30 mg 02/20/25 21:00 02/22/25 09:33 Duloxetine Hcl 30 Mg Capsule PO 03/22/25 20:59 30 mg BID ALEX Administration Glucagon 1 mg 02/19/25 14:37 Glucagon Inj 1 Mg Vial IM Q15MIN PRN BG <70, and no IV access Heparin Sodium (Porcine) 3,300 unit 02/19/25 16:05 02/21/25 19:23 Heparin Sod Inj 1000 Unit/Ml Vial 10 Ml INDWELLCAT 03/05/25 16:04 3,300 unit X1 PRN Administration DIALYSIS Heparin Sodium (Porcine) 5,000 unit 02/21/25 09:00 02/22/25 09:31 Heparin Sod Inj 5000 Unit/Ml Vial SC 03/07/25 08:59 5,000 unit Q12HR ALEX Administration Albumin Human 25 gm in 100 mls @ 100 mls/min 02/19/25 16:05 02/21/25 08:34 Albuminar-25 Ivpb IV 100 mls/min PRN PRN Administration DIALYSIS Ceftriaxone Sodium/Dextrose 1 gm in 50 mls @ 100 mls/hr 02/19/25 20:31 02/22/25 09:32 Rocephin/D5w 1gm Iv Premix IV 02/26/25 20:30 100 mls/hr QDAY ALEX Administration Insulin Human Lispro 0 unit 02/19/25 14:45 02/22/25 13:00 Insulin Lispro (Admelog) 1 Unit/0.01 Ml Unit SC 03/21/25 14:44 Not Given Q6HR ALEX Protocol Labetalol HCl 10 mg 02/21/25 16:55 02/21/25 20:57 Labetalol Inj 5 Mg/Ml Vial 20 Ml IVP 03/22/25 17:59 10 mg Q4HR PRN Administration SBP> 160 or DBP > 100 Metoclopramide HCl 5 mg 02/21/25 00:30 02/22/25 12:54 Metoclopramide Inj 5 Mg/Ml Vial 2 Ml IVP 03/23/25 00:29 5 mg Q6HR ALEX Administration Protocol Pharmacy Consult 1 each 02/19/25 13:58 Pharmacy Renal Dose Adjustment 1 Ea XX 03/21/25 13:57 PRN PRN CONSULT Plan Summary: Patient is 60-year-old female with past medical history for primary hypertension, ESRD on hemodialysis M/W/F follows with Dr Awad., CAD status post CABG [2023], high degree heart block s/p pacemaker placement September 2024, history of recurrent UTIs, NIDDM type II [.4.6] and PRES syndrome presenting today with a chief complaint of altered mental status and abnormal movements. CT brain and CTA showed no signs of acute hemorrhage, mass effect or midline shift and no signs of large vessel occlusion. Patient had abnormal twitching movements and ED and was given loading dose of Keppra and lorazepam 2 Mg IV x 1. Patient will be admitted to the ICU for management of press syndrome and stroke rule out. #Dysphagia Patient was evaluated by speech therapy on 02/21 they recommend strict n.p.o. and GI consultation - Gastroenterology consulted, scheduled for EGD today currently n.p.o. - Ordered videofluoroscopic study, scheduled for Monday a.m. - Speech is following, today recommending dysphagia diet #Acute encephalopathy, resolving #Seizure episode #Suspicion of PRES syndrome #Urinary tract infection Patient's became confused and twitching all over her body. CT brain and CTA showed no signs of LVO obstruction or hemorrhage. Patient was found to have urinary tract infection. Blood pressure 201/110 on admission. Urinalysis showed leukocyte esterase positive and WBC. Urinalysis grew Enterobacter pansensitive to all antibiotics Patient underwent MRI negative for acute hemorrhage mass effect or midline shift Plan: -Changed labetalol to as needed with parameters of SBP more than 150/DBP more than 100, SBP goal less than 140. -EEG pending -Neurochecks every 4 hours -Neurology consulted, appreciate recommendations -Patient completed treatment with IV ceftriaxone will discontinue (02/19-02/22) #CAD s/p CABG #Heart block s/p pacemaker insertion [September 2024] Pacemaker interrogated and sent to [employer] acquired by [employer]. Medical records requested from Dr. Mehta's office [employer], Dr. Marks cleared patient for MRI. However MRI department will have to switch pacemaker to MRI mode or request [employer] rep to adjust. - Resumed home aspirin and Plavix #ESRD on HD via [facility] M/W/ For hemodialysis as per nephrology recommendations. Dr Awad consulted Received hemodialysis yesterday #Normocytic Anemia DDx: OLIVER, anemia of chronic disease - Monitor CBC and for signs of bleeding #IDDM type II [5.6%] #Diabetic gastroparesis -Insulin sliding scale Q6 hourly as needed. -Metoclopramide 10 Mg IV every 8 hourly as needed -Hypoglycemia protocol #Depression - Continue duloxetine 30 mg p.o. twice daily DVT prophylaxis: Heparin GI prophylaxis: Not indicated Diet: N.p.o., pending EGD Lines: Peripheral IV Code status: Full code Case discussed with Attending Dr. Irving. Campbell Gonzalez PGY1 Disclaimer: This note was dictated by speech recognition. Minor errors in mobile ui designer may be present due to voice recognition software. Attending Provider Attestation/Addendum I have discussed and was present for the essential components of the history, physical examination, diagnosis, and treatment plan with the resident. I agree with the patient's care as documented by the resident and amended herein by me. Calos Irving DO. Although this document has been carefully reviewed, there may still be some phonetic and other typographical errors. These errors are purely grammatical due to imperfections in the software program and should not be construed in any way to compromise the substance of the patient's medical care during this visit.
--- NOTE | 2025-02-22 15:39 | SUR.PHASEI ---
Pt. arrived to recovery via [place], eyes open, responds appropriately to verbal commands, VSS, no c/o pain or nausea at this time, lung sounds clear, equal expansion dee., pt. receiving 2 liters 02 via AL. Report received from Chelle BELTRE.
--- NOTE | 2025-02-22 16:01 | SUR.PHASEI ---
Pt. sitting up tolerating ice chips.
--- NOTE | 2025-02-22 16:05 | SUR.PHASEI ---
Called and report on pt. s/p procedure to Lou BELTRE on telemetry unit.
--- NOTE | 2025-02-22 16:10 | SUR.PHASEI ---
Pt. transferred to room 277 via [facility], VSS, no c/o pain or nausea at this time, pt. assisted to bed from [facility] with help of [employer], Lou BELTRE assumed care of pt
--- NOTE | 2025-02-22 16:16 | PC.SS ---
Per rounding meeting, pt is pending EGD and is here for a UTI. Dr. Irving may d/c on Monday.
[2025-02-22] MEDS: ONDANSETRON INJ 2 MG/ML INJ 2 ML 4 MG IVP (16:58)
--- NOTE | 2025-02-22 19:00 | ESPR_ITS ---
Documentation for date of: 02/22/25 Subjective Subjective Interval history: Patient seen and examined at the bedside. No new cardiac complaints. Pacemaker check completed and no new events since implantation. Patient pacemaker was MRI compatible in the leads as well. MRI was negative for acute hemorrhage mass effect or midline shift and there was no acute infarct. During examination patient states her right upper extremity strength is improved and is around 4/5 but still has some weakness on the left upper extremity. Patient also states that swallowing has improved and was able to drink sips of water without any major problems. Working diagnosis possible press syndrome but less likely as per neuro Recommend better BP control and goal SBP should be 130-140 mmHg as patient could also be having hypertensive encephalopathy. Planned for EGD by GI today Exam Vital Signs Temp Pulse Resp BP Pulse Ox O2 Del Method O2 Flow Rate 97.1 F 79 18 81/50 L 93 L Room Air 2 02/24/25 00:00 02/24/25 00:00 02/24/25 00:00 02/24/25 00:00 02/24/25 00:00 02/24/25 00:00 02/23/25 14:24 FiO2 2 02/22/25 04:00 Narrative Exam General: Alert and oriented x3. In no acute distress. Eyes: Pupils are equal and reactive to light bilaterally. HEENT: Atraumatic, normocephalic. No JVD noted. Mucosa moist. Cardiovascular: Sternal scar appears clean. Normal S1 and S2. Normal rate and regular rhythm. No murmurs appreciated. No peripheral pitting edema noted. Respiratory: No respiratory distress. Lungs are clear to auscultation bilaterally. No wheezing or crackles heard. Abdomen: Soft, nontender, nondistended. Skin: No rash. Warm to touch. Musculoskeletal: No gross injuries. Able to move all 4 extremities. Neuro: Alert and oriented x3. 2-3/5 power in all the extremities. Cranial nerves appear to be intact Psych: Normal affect and mood Objective Labs 02/23/25 05:56 02/23/25 05:56 Labs: Laboratory Results - last 24 hr 02/23/25 05:56 WBC 13.3 H RBC 3.11 L Hgb 9.3 L Hct 28.0 L MCV 90 MCH 29.9 MCHC 33.2 RDW Std Deviation 57.9 H Plt Count 246 Neut % (Auto) 66 Lymph % (Auto) 20 [place] % (Auto) 10 Eos % (Auto) 1 Baso % (Auto) 1 Neut # (Auto) 8.8 H Lymph # (Auto) 2.6 [place] # (Auto) 1.4 H Eos # (Auto) 0.2 Baso # (Auto) 0.1 Immature Gran # (Auto) 0.23 H Absolute Nucleated RBC 0.00 Immature Gran % 2 H Nucleated RBC % 0 Sodium 138 Potassium 3.6 Chloride 102 Carbon Dioxide 25.5 Anion Gap 11 BUN 47 H Creatinine 3.9 H D Estim Creat Clear Calc 13.6 L eGFR 12 L* BUN/Creatinine Ratio 12 Glucose 122 H Calculated Osmolality 288 Calcium 9.4 Corrected Calcium 9.4 Phosphorus 5.7 H Magnesium 2.5 Total Bilirubin 0.7 AST 17 ALT 20 Alkaline Phosphatase 68 Total Protein 6.5 Albumin 4.2 Globulin 2.3 Albumin/Globulin Ratio 1.8 ABG Interpretation ABG results: 02/18/25 19:57 ABG pH 7.32 L ABG pCO2 50 H ABG pO2 45 L* ABG HCO3 26 ABG O2 Saturation 79 L ABG Base Excess -1 Assessment & Plan A&P Narrative 60-year-old female male with a past medical history of CAD s/p CABG in May 2024 after elective cardiac authorization for a positive stress test, status post pacemaker placed in 2024 for symptomatic AV block, stage renal disease on hemodialysis on Monday and Monday, type 2 diabetes mellitus, history of gastric sleeve operation, 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 Cardiology consulted for pacemaker evaluation as the patient will need an MRI brain as recommended by neurology. 1. Symptomatic bradycardia secondary to AV block and status post pacemaker- [employer] placed in September 2024 2. Altered mental status 3. Acute metabolic encephalopathy with possible pres syndrome versus new onset seizures versus hypertensive encephalopathy 4. Hypertensive emergency 4. CAD status post CABG in May 2025 5. End-stage renal disease on hemodialysis Monday 6. Chronic anemia 7. Type 2 diabetes mellitus 8. Obesity status post gastric sleeve surgery 9. Diabetic gastroparesis 10. Depression Patient presented with altered mental status and broad differential at the present point of time including metabolic encephalopathy and hypertensive encephalopathy versus possible press syndrome. Patient does have some neurological deficits with only 2-3+ per bilaterally and has dysphagia. Neurology was consulted and recommended EEG along with MRI. Further management of altered mental status as per the neurology team. Patient does have a pacemaker placed in [address] Allred in [place] for symptomatic bradycardia with AV block. Patient apparently did not follow-up with them only once in follows up with also he the regular family welfare social work professor as outpatient but the primary team unable to obtain pacemaker details to have clearance for the MRI. Family informed that patient does have a [employer] pacemaker and will recontact [place] service line for side effect on- call device check and it showed patient has excellent battery and it has been only 3 months since placement. All the sensitivities, impedance and thresholds of the pacemaker are in the normal range. Baseline rate is 60 and upper limit for tracking was at 120 bpm. There has been no new events since the placement of the pacemaker. Pacemaker interrogation placed in the chart and patient has an MRI safe device as well as the leads and form completed for clearance for MRI. Patient is scheduled for the MRI today. Patient does have a history of CAD status post CABG in May 2024 with an active cardiac catheterization after positive stress test which was done as part of the preoperative workup. Patient denies any chest pain chest pressure or other cardiac in place. Troponins have been negative and EKG without any acute ST changes. Continue aspirin, Plavix as well as statin and beta-lauren. Patient did present with hypertensive emergency with altered mental status and possible metabolic versus hypertensive encephalopathy. Patient initial blood pressure was 210/110 mmHg. The patient has a possible diagnosis of press syndrome that was diagnosed by neurology. Trying to rule out stroke as well as seizures with an EEG.. Recommend aggressive control of blood pressure and to keep the diastolic blood pressure around 90-100 mmHg as per the recommendations. Recommend not to decrease more than 25% of the systolic blood pressure in the first 24 hours. 02/22/2024: Pacemaker check completed and no new events since implantation. Patient pacemaker was MRI compatible in the leads as well. MRI was negative for acute hemorrhage mass effect or midline shift and there was no acute infarct. During examination patient states her right upper extremity strength is improved and is around 4/5 but still has some weakness on the left upper extremity. Patient also states that swallowing has improved and was able to drink sips of water without any major problems. Working diagnosis possible press syndrome but less likely as per neuro Recommend better BP control and goal SBP should be 130-140 mmHg as patient could also be having hypertensive encephalopathy. Planned for EGD by GI today Management of rest of the medical conditions as per primary team and other consultants. Thank you for the consult and allowing me to participate in the care of the patient. Cardiology will continue to follow. Zaheer Marks M.D. Interventional Cardiology Time Spent With Patient Time: Total time spent is greater than 50% in coordination of care (as documented) at patient's floor/unit and/or counseling patient:
--- NOTE | 2025-02-22 19:22 | PC.NURSE ---
Contacted Dr. Barillas regarding patient's request of wanting ativan for sleep. Per patient stated to nurse Dr. Irving has told me that I could have Ativan for sleep .
[2025-02-22] MEDS: LABETALOL INJ 5 MG/ML VIAL 20 ML 10 MG IVP (19:36)
[2025-02-22] MEDS: ATORVASTATIN CALCIUM 20 MG TABLET 80 MG PO (20:13)
[2025-02-22] MEDS: ASPIRIN EC 81 MG TABEC PO (20:13)
[2025-02-22] MEDS: CLOPIDOGREL BISULFATE 75 MG TABLET PO (20:13)
[2025-02-22] MEDS: LORazepam 0.5 MG TABLET 1 MG PO (21:23)
[2025-02-23] VITALS (8 sets, daily range): BP systolic 119–164; BP diastolic 72–92; PULSE 74–93; RESP 13–18; TEMP 36–36.8; O2SAT 92–100; BMI 25.1
--- NOTE | 2025-02-23 00:01 | VVPN_ITS ---
Telemedicine visit statement This visit was conducted with the use of interactive audio and video telecommunications system that permits real time communication between the patient and the provider. Patient's verbal consent for virtual visit was obtained on 02/23/25 at 0001. Documentation for date of: 02/23/25 Subjective Subjective Interval history: Patient is in telemetry, UE weakness remains unchanged. Going for swallow evaluation. GI did endoscopy, showed esphagitis and stenosis. Virtual exam Vital Signs Temp Pulse Resp BP Pulse Ox O2 Del Method O2 Flow Rate 97.3 F 79 18 135/80 H 95 Nasal Cannula 2 02/22/25 19:43 02/22/25 20:00 02/22/25 19:43 02/22/25 20:13 02/22/25 19:43 02/22/25 16:20 02/22/25 16:20 FiO2 2 02/22/25 04:00 Objective Labs 02/22/25 06:05 02/22/25 06:05 Labs: Laboratory Results - last 24 hr 02/22/25 06:05 WBC 12.7 H RBC 3.03 L Hgb 9.0 L Hct 27.3 L MCV 90 MCH 29.7 MCHC 33.0 RDW Std Deviation 58.9 H Plt Count 268 D Neut % (Auto) 71 Lymph % (Auto) 18 [place] % (Auto) 9 Eos % (Auto) 1 Baso % (Auto) 1 Neut # (Auto) 9.0 H Lymph # (Auto) 2.2 [place] # (Auto) 1.2 H Eos # (Auto) 0.1 Baso # (Auto) 0.1 Immature Gran # (Auto) 0.16 H Absolute Nucleated RBC 0.00 Immature Gran % 1 H Nucleated RBC % 0 Sodium 140 Potassium 3.6 D Chloride 102 Carbon Dioxide 25.5 Anion Gap 13 BUN 22 Creatinine 3.0 H D Estim Creat Clear Calc 17.7 L eGFR 17 L BUN/Creatinine Ratio 7 L Glucose 119 H Calculated Osmolality 283 Calcium 9.2 Corrected Calcium 9.2 Magnesium 2.3 Total Bilirubin 0.7 AST 19 ALT 23 Alkaline Phosphatase 69 Total Protein 6.4 Albumin 4.2 Globulin 2.2 L Albumin/Globulin Ratio 1.9 ABG Interpretation ABG results: 02/18/25 19:57 ABG pH 7.32 L ABG pCO2 50 H ABG pO2 45 L* ABG HCO3 26 ABG O2 Saturation 79 L ABG Base Excess -1 Assessment & Plan Problem List (1) Weakness: Status: Acute Assessment and plan: Reassured her the workup is neg. Most likely effort related. Should improve with PT. (2) Hypertension: Status: Acute Assessment and plan: under control, keep it around 120-140 mm of Hg (3) End stage renal disease on dialysis due to type 2 diabetes mellitus: Status: Acute Assessment and plan: on dialysis, she did get it yesteday as the BP went up.
[2025-02-23] MEDS: METOCLOPRAMIDE INJ 5 MG/ML VIAL 2 ML IVP ×4 (00:30→17:40)
[2025-02-23 06:33] LABS: Basophils # (Auto) 0.1 Thou/mm3 (0.0-0.2); Basophils % (Auto) 1 % (0-2.5); Eosinophils # (Auto) 0.2 Thou/mm3 (0.0-0.5); Eosinophils % (Auto) 1 % (0-10); Hemoglobin 9.3 g/dL (12.0-16.0); Immature Granulocytes % (Auto) 2 % (0-0); Immature Granulocytes Auto 0.23 Thou/mm3 (0.00-0.00); Lymphocytes # (Auto) 2.6 Thou/mm3 (1.0-4.8); Lymphocytes % (Auto) 20 % (10-50); Mean Corpuscular HGB Conc 33.2 g/dl (31.0-37.0); Mean Corpuscular Hemoglobin 29.9 pg (25.0-35.0); Mean Corpuscular Volume 90 fL (80-100); Monocytes # (Auto) 1.4 Thou/mm3 (0.0-0.8); Monocytes % (Auto) 10 % (0-12); Neutrophils # (Auto) 8.8 Thou/mm3 (1.8-7.7); Neutrophils % (Auto) 66 % (37-80); Nucleated Red Blood Cell % 0 /100 WBC (0); Platelet Count 246 Thou/mm3 (140-440); RDW Standard Deviation 57.9 fL (36.4-46.3); Red Blood Count 3.11 Miln/mm3 (4.00-5.20); White Blood Count 13.3 Thou/mm3 (3.6-11.0)
[2025-02-23 07:20] LABS: Alanine Aminotransferase 20 U/L (10-49); Albumin, Serum 4.2 gm/dL (3.4-4.8); Albumin/Globulin Ratio 1.8 (1.2-2.2); Alkaline Phosphatase 68 U/L (46-116); Anion Gap 11 (7-16); Aspartate Amino Transferase 17 U/L (0-34); BUN/Creatinine Ratio 12 Ratio (12-20); Bilirubin,Total 0.7 mg/dL (0.3-1.2); Blood Urea Nitrogen 47 mg/dL (9-23); Calcium 9.4 mg/dL (8.3-10.6); Calcium (Corrected) 9.4 mg/dL (8.5-10.1); Carbon Dioxide 25.5 mMol/L (20.0-31.0); Chloride 102 mMol/L (98-107); Creatinine (Component) 3.9 mg/dL (0.6-1.3); Estimated Creatinine Clearance 13.6 mL/min (>60); Globulin 2.3 gm/dL (2.3-3.5); Glucose 122 mg/dL (74-106); Magnesium 2.5 mg/dL (1.6-2.6); Osmolality,Calculated 288 (275-295); Phosphorous 5.7 mg/dL (2.4-5.1); Potassium 3.6 mMol/L (3.4-5.1); Sodium 138 mMol/L (136-145); Total Protein 6.5 gm/dL (5.7-8.2); eGFR 12 See Note
[2025-02-23] MEDS: HEPARIN SOD INJ 5000 UNIT/ML VIAL SC (09:43)
[2025-02-23] MEDS: DULoxetine HCL 30 MG CAPSULE PO ×2 (09:43→21:27)
[2025-02-23] MEDS: SEVELAMER CARBONATE 800 MG TABLET PO ×3 (09:44→17:40)
[2025-02-23] MEDS: VALSARTAN 40 MG TABLET PO (09:44)
[2025-02-23] MEDS: INSULIN LISPRO (AdmeLOG) 1 UNIT/0.01 ML UNIT SC (11:43)
[2025-02-23] MEDS: LIDOCAINE 5% 1 PATCH TOP (11:44)
[2025-02-23] MEDS: PANTOPRAZOLE 40 MG TABLET PO (11:44)
--- NOTE | 2025-02-23 12:10 | ESPR_ITS ---
Documentation for date of: 02/23/25 Subjective Subjective Interval history: Patient seen examined at bedside Patient had EGD done 02/22 shows benign-appearing esophageal stenosis in the proximal part of esophagus which was dilated by gastroenterology and diaphragmatic squeeze at 42 cm with a possible 4 to 5 cm hiatal hernia. Also esophagitis noted. Patient is pending videofluoroscopic study, was walking with walker at baseline, physical therapy will follow. Started on sevelamer for hyperphosphatemia, will monitor Started on lidocaine patch for neck pain Exam Vital Signs Temp Pulse Resp BP Pulse Ox O2 Del Method O2 Flow Rate 97.0 F 80 13 136/73 H 97 Nasal Cannula 2 02/23/25 08:00 02/23/25 09:44 02/23/25 08:00 02/23/25 09:44 02/23/25 08:00 02/23/25 08:00 02/23/25 08:00 FiO2 2 02/22/25 04:00 Narrative Exam Constitutional:Alert, oriented x 3 and comfortable. Elderly female HEENT: Vision grossly intact. Patent nares. Trachea midline Respiratory: Chest normal on inspection and clear auscultation bilaterally. RIJ cath. Cardiovascular: S1 and S2 audible, RRR. No murmurs carotid bruit. No gross JVD. Abdominal: Soft, obese and non tender to palpation in all quadrants. BS + Genitourinary: No bladder tenderness, no flank pain. Normal to palpation Musculoskeletal: Extremities tone within normal limits. No LE edema. Neurological: CN II - XII grossly intact. Power 2/5 lower extremities, 4/5 upper extremities bilaterally. Skin: Warm, dry and intact. No apparent lesions. Psychiatric: Patient has good affect, is cooperative Objective Labs 02/23/25 05:56 02/23/25 05:56 Labs: Laboratory Results - last 24 hr 02/23/25 05:56 WBC 13.3 H RBC 3.11 L Hgb 9.3 L Hct 28.0 L MCV 90 MCH 29.9 MCHC 33.2 RDW Std Deviation 57.9 H Plt Count 246 Neut % (Auto) 66 Lymph % (Auto) 20 [place] % (Auto) 10 Eos % (Auto) 1 Baso % (Auto) 1 Neut # (Auto) 8.8 H Lymph # (Auto) 2.6 [place] # (Auto) 1.4 H Eos # (Auto) 0.2 Baso # (Auto) 0.1 Immature Gran # (Auto) 0.23 H Absolute Nucleated RBC 0.00 Immature Gran % 2 H Nucleated RBC % 0 Sodium 138 Potassium 3.6 Chloride 102 Carbon Dioxide 25.5 Anion Gap 11 BUN 47 H Creatinine 3.9 H D Estim Creat Clear Calc 13.6 L eGFR 12 L* BUN/Creatinine Ratio 12 Glucose 122 H Calculated Osmolality 288 Calcium 9.4 Corrected Calcium 9.4 Phosphorus 5.7 H Magnesium 2.5 Total Bilirubin 0.7 AST 17 ALT 20 Alkaline Phosphatase 68 Total Protein 6.5 Albumin 4.2 Globulin 2.3 Albumin/Globulin Ratio 1.8 ABG Interpretation ABG results: 02/18/25 19:57 ABG pH 7.32 L ABG pCO2 50 H ABG pO2 45 L* ABG HCO3 26 ABG O2 Saturation 79 L ABG Base Excess -1 Quality Measures Quality Measures none Assessment & Plan Assessment Current Active Medications: Generic Name Dose Route Start Last Admin Trade Name Freq PRN Reason Stop Dose Admin Acetaminophen 650 mg 02/20/25 07:12 Acetaminophen Supp 650 Mg Supp RI 03/21/25 13:40 Q6HR PRN FEVER 101.5 Aspirin 81 mg 02/20/25 21:00 02/22/25 20:13 Aspirin Ec 81 Mg Tabec PO 03/22/25 20:59 81 mg HS ALEX Administration Atorvastatin Calcium 80 mg 02/20/25 21:00 02/22/25 20:13 Atorvastatin Calcium 20 Mg Tablet PO 03/22/25 20:59 80 mg HS ALEX Administration Clopidogrel Bisulfate 75 mg 02/20/25 21:00 02/22/25 20:13 Clopidogrel Bisulfate 75 Mg Tablet PO 03/22/25 20:59 75 mg HS ALEX Administration Dextrose 50 ml 02/19/25 14:37 Dextrose 50%-Water Inj 50 Ml Syringe IV 03/21/25 14:36 Q15MIN PRN BG <50 OR BG <70 & pt unresponsive Duloxetine HCl 30 mg 02/20/25 21:00 02/23/25 09:43 Duloxetine Hcl 30 Mg Capsule PO 03/22/25 20:59 30 mg BID ALEX Administration Glucagon 1 mg 02/19/25 14:37 Glucagon Inj 1 Mg Vial IM Q15MIN PRN BG <70, and no IV access Heparin Sodium (Porcine) 3,300 unit 02/19/25 16:05 02/21/25 19:23 Heparin Sod Inj 1000 Unit/Ml Vial 10 Ml INDWELLCAT 03/05/25 16:04 3,300 unit X1 PRN Administration DIALYSIS Heparin Sodium (Porcine) 5,000 unit 02/21/25 09:00 02/23/25 09:43 Heparin Sod Inj 5000 Unit/Ml Vial SC 03/07/25 08:59 5,000 unit Q12HR ALEX Administration Albumin Human 25 gm in 100 mls @ 100 mls/min 02/19/25 16:05 02/21/25 08:34 Albuminar-25 Ivpb IV 100 mls/min PRN PRN Administration DIALYSIS Insulin Human Lispro 0 unit 02/22/25 17:00 02/23/25 11:43 Insulin Lispro (Admelog) 1 Unit/0.01 Ml Unit SC 03/24/25 16:59 2 unit ACHS ALEX Administration Protocol Labetalol HCl 10 mg 02/23/25 08:19 Labetalol Inj 5 Mg/Ml Vial 20 Ml IVP 03/22/25 17:59 Q4HR PRN SBP> 150 or DBP > 100 Lidocaine 1 patch 02/23/25 11:02 02/23/25 11:44 Lidocaine 5% 1 Patch TOP 03/25/25 11:01 1 patch UD PRN Administration Neck Pain Protocol Metoclopramide HCl 5 mg 02/21/25 00:30 02/23/25 11:47 Metoclopramide Inj 5 Mg/Ml Vial 2 Ml IVP 03/23/25 00:29 5 mg Q6HR ALEX Administration Protocol Pantoprazole Sodium 40 mg 02/23/25 10:15 02/23/25 11:44 Pantoprazole 40 Mg Tablet PO 03/25/25 10:14 40 mg QDAY ALEX Administration Pharmacy Consult 1 each 02/19/25 13:58 Pharmacy Renal Dose Adjustment 1 Ea XX 03/21/25 13:57 PRN PRN CONSULT Sevelamer Carbonate 800 mg 02/23/25 08:00 02/23/25 11:44 Sevelamer Carbonate 800 Mg Tablet PO 03/25/25 07:59 800 mg TIDWM ALEX Administration Valsartan 40 mg 02/23/25 09:00 02/23/25 09:44 Valsartan 40 Mg Tablet PO 03/25/25 08:59 40 mg QDAY ALEX Administration Plan Summary: Patient is 60-year-old female with past medical history for primary hypertension, ESRD on hemodialysis M/W/F follows with Dr Awad., CAD status post CABG [2023], high degree heart block s/p pacemaker placement September 2024, history of recurrent UTIs, NIDDM type II [.4.6] and PRES syndrome presenting today with a chief complaint of altered mental status and abnormal movements. CT brain and CTA showed no signs of acute hemorrhage, mass effect or midline shift and no signs of large vessel occlusion. Patient had abnormal twitching movements and ED and was given loading dose of Keppra and lorazepam 2 Mg IV x 1. Patient will be admitted to the ICU for management of press syndrome and stroke rule out. #Proximal esophageal stenosis status post dilation 02/22 #Hiatal hernia #Esophagitis #Dysphagia Patient was evaluated by speech therapy on 02/21 they recommend strict n.p.o. and GI consultation. Patient had EGD done 02/22 shows benign-appearing esophageal stenosis in the proximal part of esophagus which was dilated by gastroenterology and diaphragmatic squeeze at 42 cm with a possible 4 to 5 cm hiatal hernia. Also esophagitis noted. - Gastroenterology consulted, scheduled for EGD today currently n.p.o. - Ordered videofluoroscopic study, scheduled for Monday a.m. - Dysphagia diet - Follow-up biopsy outpatient #Acute encephalopathy, resolving #Seizure episode #Suspicion of PRES syndrome #Urinary tract infection Patient's became confused and twitching all over her body. CT brain and CTA showed no signs of LVO obstruction or hemorrhage. Patient was found to have urinary tract infection. Blood pressure 201/110 on admission. Urinalysis showed leukocyte esterase positive and WBC. Urinalysis grew Enterobacter pansensitive to all antibiotics Patient underwent MRI negative for acute hemorrhage mass effect or midline shift Plan: -Started on home dose of losartan, blood pressure goal SBP less than 140 -Will titrate antihypertensive medication -EEG pending -Neurochecks every 4 hours -Neurology consulted, appreciate recommendations -Patient completed treatment with IV ceftriaxone (02/19-02/22) #CAD s/p CABG #Heart block s/p pacemaker insertion [September 2024] Pacemaker interrogated and sent to [facility]. Medical records requested from Dr. Metha's office Packing Checker, Dr. Marks cleared patient for MRI. However MRI department will have to switch pacemaker to MRI mode or request [employer] rep to adjust. - Resumed home aspirin and Plavix #ESRD on HD via RIJ PermCath M/W/F For hemodialysis as per nephrology recommendations. Dr Awad consulted -Continue inpatient hemodialysis #Normocytic Anemia DDx: OLIVER, anemia of chronic disease - Monitor CBC and for signs of bleeding #IDDM type II [5.6%] #Diabetic gastroparesis -Insulin sliding scale Q6 hourly as needed. -Metoclopramide 10 Mg IV every 8 hourly as needed -Hypoglycemia protocol #Depression - Continue duloxetine 30 mg p.o. twice daily DVT prophylaxis: Heparin GI prophylaxis: Not indicated Diet: N.p.o., pending EGD Lines: Peripheral IV Code status: Full code Case discussed with Attending Dr. Irving. Campbell Gonzalez PGY1 Disclaimer: This note was dictated by speech recognition. Minor errors in rock wool insulator may be present due to voice recognition software. Attending Provider Attestation/Addendum I have discussed and was present for the essential components of the history, physical examination, diagnosis, and treatment plan with the resident. I agree with the patient's care as documented by the resident and amended herein by me. Calos Irving, DO. Patient seen and evaluated this AM. No acute events overnight, vital signs stable, patient afebrile, SBP ranged from the 150s to the 190s millimeters Hg. EGD performed last night with Dr. Castorena, significant findings were esophagitis which the patient has been started on Protonix and esophageal stenosis in which dilation was performed. The patient endorses being able to swallow much better after the procedure. Video swallow evaluation still pending for tomorrow, PT recommended ARU for the patient, nephrology social worker notified and attempts to locate a facility for her. Will continue to optimize blood pressure, patient doing well otherwise. Patient did complete a course of antibiotics for her UTI. Although this document has been carefully reviewed, there may still be some phonetic and other typographical errors. These errors are purely grammatical due to imperfections in the software program and should not be construed in any way to compromise the substance of the patient's medical care during this visit.
--- NOTE | 2025-02-23 14:57 | PC.SS ---
Addendum entered by Ivory Tomlinson 02/23/25 15:08: UYEN completed PASRR (SANDRA: [phone]), level I. Original Note: Tree Tapping Laborer (UYEN) Ivory met with patient [id number] to discuss discharge plan. Patient was in agreement with attending acute rehabilitation therapy. UYEN provided pamphlets for [facility] and [facility]. UYEN completed referrals through [facility].
--- NOTE | 2025-02-23 15:47 | PD.IMPROG ---
Documentation for date of: 02/23/25 Subjective Subjective Interval history: Patient seen and examined at the bedside. No new cardiac complaints. Pacemaker check completed and no new events since implantation. Patient pacemaker was MRI compatible in the leads as well. MRI was negative for acute hemorrhage mass effect or midline shift and there was no acute infarct. During examination patient appears to back to her baseline including her mental status as well as her motor strength. Patient also states that swallowing has improved and was able to drink sips of water without any major problems. Patient had EGD done 02/22 shows benign-appearing esophageal stenosis in the proximal part of esophagus which was dilated by gastroenterology and diaphragmatic squeeze at 42 cm with a possible 4 to 5 cm hiatal hernia. Also esophagitis noted. Patient is pending videofluoroscopic study Working diagnosis possible press syndrome but less likely as per neuro. Continue aggressive blood pressure control and diet keep systolic blood pressure between 120-140 mmHg as it could also be contributing to the encephalopathy. Exam Vital Signs Temp Pulse Resp BP Pulse Ox O2 Del Method O2 Flow Rate 96.8 F 81 17 154/90 H 99 Nasal Cannula 2 02/23/25 12:00 02/23/25 14:24 02/23/25 14:24 02/23/25 12:00 02/23/25 14:24 02/23/25 12:00 02/23/25 14:24 FiO2 2 02/22/25 04:00 Narrative Exam General: Alert and oriented x3. In no acute distress. Eyes: Pupils are equal and reactive to light bilaterally. HEENT: Atraumatic, normocephalic. No JVD noted. Mucosa moist. Cardiovascular: Sternal scar appears clean. Normal S1 and S2. Normal rate and regular rhythm. No murmurs appreciated. No peripheral pitting edema noted. Respiratory: No respiratory distress. Lungs are clear to auscultation bilaterally. No wheezing or crackles heard. Abdomen: Soft, nontender, nondistended. Skin: No rash. Warm to touch. Musculoskeletal: No gross injuries. Able to move all 4 extremities. Neuro: Alert and oriented x3. 2-3/5 power in all the extremities. Cranial nerves appear to be intact Psych: Normal affect and mood Objective Labs 02/23/25 05:56 02/23/25 05:56 Labs: Laboratory Results - last 24 hr 02/23/25 05:56 WBC 13.3 H RBC 3.11 L Hgb 9.3 L Hct 28.0 L MCV 90 MCH 29.9 MCHC 33.2 RDW Std Deviation 57.9 H Plt Count 246 Neut % (Auto) 66 Lymph % (Auto) 20 [place] % (Auto) 10 Eos % (Auto) 1 Baso % (Auto) 1 Neut # (Auto) 8.8 H Lymph # (Auto) 2.6 [place] # (Auto) 1.4 H Eos # (Auto) 0.2 Baso # (Auto) 0.1 Immature Gran # (Auto) 0.23 H Absolute Nucleated RBC 0.00 Immature Gran % 2 H Nucleated RBC % 0 Sodium 138 Potassium 3.6 Chloride 102 Carbon Dioxide 25.5 Anion Gap 11 BUN 47 H Creatinine 3.9 H D Estim Creat Clear Calc 13.6 L eGFR 12 L* BUN/Creatinine Ratio 12 Glucose 122 H Calculated Osmolality 288 Calcium 9.4 Corrected Calcium 9.4 Phosphorus 5.7 H Magnesium 2.5 Total Bilirubin 0.7 AST 17 ALT 20 Alkaline Phosphatase 68 Total Protein 6.5 Albumin 4.2 Globulin 2.3 Albumin/Globulin Ratio 1.8 ABG Interpretation ABG results: 02/18/25 19:57 ABG pH 7.32 L ABG pCO2 50 H ABG pO2 45 L* ABG HCO3 26 ABG O2 Saturation 79 L ABG Base Excess -1 Assessment & Plan A&P Narrative 60-year-old female male with a past medical history of CAD s/p CABG in May 2024 after elective cardiac authorization for a positive stress test, status post pacemaker placed in 2024 for symptomatic AV block, stage renal disease on hemodialysis on Monday and Monday, type 2 diabetes mellitus, history of gastric sleeve operation, 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 Cardiology consulted for pacemaker evaluation as the patient will need an MRI brain as recommended by neurology. 1. Symptomatic bradycardia secondary to AV block and status post pacemaker-[employer] placed in September 2024 2. Altered mental status 3. Acute metabolic encephalopathy with possible pres syndrome versus new onset seizures versus hypertensive encephalopathy 4. Hypertensive emergency 4. CAD status post CABG in May 2025 5. End-stage renal disease on hemodialysis Monday 6. Chronic anemia 7. Type 2 diabetes mellitus 8. Obesity status post gastric sleeve surgery 9. Diabetic gastroparesis 10. Depression Patient presented with altered mental status and broad differential at the present point of time including metabolic encephalopathy and hypertensive encephalopathy versus possible press syndrome. Patient does have some neurological deficits with only 2-3+ per bilaterally and has dysphagia. Neurology was consulted and recommended EEG along with MRI. Further management of altered mental status as per the neurology team. Patient does have a pacemaker placed in [address] Allred in [place] for symptomatic bradycardia with AV block. Patient apparently did not follow-up with them only once in follows up with also he the regular information services vice president as outpatient but the primary team unable to obtain pacemaker details to have clearance for the MRI. Family informed that patient does have a [employer] pacemaker and will recontact [place] service line for side effect on-call device check and it showed patient has excellent battery and it has been only 3 months since placement. All the sensitivities, impedance and thresholds of the pacemaker are in the normal range. Baseline rate is 60 and upper limit for tracking was at 120 bpm. There has been no new events since the placement of the pacemaker. Pacemaker interrogation placed in the chart and patient has an MRI safe device as well as the leads and form completed for clearance for MRI. Patient is scheduled for the MRI today. Patient does have a history of CAD status post CABG in May 2024 with an active cardiac catheterization after positive stress test which was done as part of the preoperative workup. Patient denies any chest pain chest pressure or other cardiac in place. Troponins have been negative and EKG without any acute ST changes. Continue aspirin, Plavix as well as statin and beta-lauren. Patient did present with hypertensive emergency with altered mental status and possible metabolic versus hypertensive encephalopathy. Patient initial blood pressure was 210/110 mmHg. The patient has a possible diagnosis of press syndrome that was diagnosed by neurology. Trying to rule out stroke as well as seizures with an EEG.. Recommend aggressive control of blood pressure and to keep the diastolic blood pressure around 90-100 mmHg as per the recommendations. Recommend not to decrease more than 25% of the systolic blood pressure in the first 24 hours. 02/24/2024: Pacemaker check completed and no new events since implantation. Patient pacemaker was MRI compatible in the leads as well. MRI was negative for acute hemorrhage mass effect or midline shift and there was no acute infarct. During examination patient appears to back to her baseline including her mental status as well as her motor strength. Patient also states that swallowing has improved and was able to drink sips of water without any major problems. Patient had EGD done 02/22 shows benign-appearing esophageal stenosis in the proximal part of esophagus which was dilated by gastroenterology and diaphragmatic squeeze at 42 cm with a possible 4 to 5 cm hiatal hernia. Also esophagitis noted. Patient is pending videofluoroscopic study Working diagnosis possible press syndrome but less likely as per neuro. Continue aggressive blood pressure control and diet keep systolic blood pressure between 120-140 mmHg as it could also be contributing to the encephalopathy. Management of rest of the medical conditions as per primary team and other consultants. Thank you for the consult and allowing me to participate in the care of the patient. Cardiology will continue to follow. Zaheer Marks M.D. Interventional Cardiology Time Spent With Patient Time: Total time spent is greater than 50% in coordination of care (as documented) at patient's floor/unit and/or counseling patient:
--- NOTE | 2025-02-23 16:49 | ESPR_ITS ---
Documentation for date of: 02/23/25 Subjective Subjective Interval history: Patient dysphagia 1 diet pur?ed Patient status post endoscopic dilatation of the proximal esophageal stricture Exam Vital Signs Temp Pulse Resp BP Pulse Ox O2 Del Method O2 Flow Rate 96.8 F 81 17 154/90 H 99 Nasal Cannula 2 02/23/25 12:00 02/23/25 14:24 02/23/25 14:24 02/23/25 12:00 02/23/25 14:24 02/23/25 12:00 02/23/25 14:24 FiO2 2 02/22/25 04:00 Objective Labs 02/23/25 05:56 02/23/25 05:56 Labs: Laboratory Results - last 24 hr 02/23/25 05:56 WBC 13.3 H RBC 3.11 L Hgb 9.3 L Hct 28.0 L MCV 90 MCH 29.9 MCHC 33.2 RDW Std Deviation 57.9 H Plt Count 246 Neut % (Auto) 66 Lymph % (Auto) 20 [place] % (Auto) 10 Eos % (Auto) 1 Baso % (Auto) 1 Neut # (Auto) 8.8 H Lymph # (Auto) 2.6 [place] # (Auto) 1.4 H Eos # (Auto) 0.2 Baso # (Auto) 0.1 Immature Gran # (Auto) 0.23 H Absolute Nucleated RBC 0.00 Immature Gran % 2 H Nucleated RBC % 0 Sodium 138 Potassium 3.6 Chloride 102 Carbon Dioxide 25.5 Anion Gap 11 BUN 47 H Creatinine 3.9 H D Estim Creat Clear Calc 13.6 L eGFR 12 L* BUN/Creatinine Ratio 12 Glucose 122 H Calculated Osmolality 288 Calcium 9.4 Corrected Calcium 9.4 Phosphorus 5.7 H Magnesium 2.5 Total Bilirubin 0.7 AST 17 ALT 20 Alkaline Phosphatase 68 Total Protein 6.5 Albumin 4.2 Globulin 2.3 Albumin/Globulin Ratio 1.8 Impressions Impression: Dysphagia Esophageal stress test with endoscopic dilatation Continue current management ABG Interpretation ABG results: 02/18/25 19:57 ABG pH 7.32 L ABG pCO2 50 H ABG pO2 45 L* ABG HCO3 26 ABG O2 Saturation 79 L ABG Base Excess -1 Assessment & Plan A&P Narrative 60-year-old female male with a past medical history of CAD s/p CABG in May 2024 after elective cardiac authorization for a positive stress test, status post pacemaker placed in 2024 for symptomatic AV block, stage renal disease on hemodialysis on Monday and Monday, type 2 diabetes mellitus, history of gastric sleeve operation, 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 Cardiology consulted for pacemaker evaluation as the patient will need an MRI brain as recommended by neurology. 1. Symptomatic bradycardia secondary to AV block and status post pacemaker- [employer] placed in September 2024 2. Altered mental status 3. Acute metabolic encephalopathy with possible pres syndrome versus new onset seizures versus hypertensive encephalopathy 4. Hypertensive emergency 4. CAD status post CABG in May 2025 5. End-stage renal disease on hemodialysis Monday 6. Chronic anemia 7. Type 2 diabetes mellitus 8. Obesity status post gastric sleeve surgery 9. Diabetic gastroparesis 10. Depression Patient presented with altered mental status and broad differential at the present point of time including metabolic encephalopathy and hypertensive encephalopathy versus possible press syndrome. Patient does have some neurological deficits with only 2-3+ per bilaterally and has dysphagia. Neurology was consulted and recommended EEG along with MRI. Further management of altered mental status as per the neurology team. Patient does have a pacemaker placed in [place] [address] Allred in [place] for symptomatic bradycardia with AV block. Patient apparently did not follow-up with them only once in follows up with also he the regular leasing associate as outpatient but the primary team unable to obtain pacemaker details to have clearance for the MRI. Family informed that patient does have a [employer] pacemaker and will recontact [place] service line for side effect on- call device check and it showed patient has excellent battery and it has been only 3 months since placement. All the sensitivities, impedance and thresholds of the pacemaker are in the normal range. Baseline rate is 60 and upper limit for tracking was at 120 bpm. There has been no new events since the placement of the pacemaker. Pacemaker interrogation placed in the chart and patient has an MRI safe device as well as the leads and form completed for clearance for MRI. Patient is scheduled for the MRI today. Patient does have a history of CAD status post CABG in May 2024 with an active cardiac catheterization after positive stress test which was done as part of the preoperative workup. Patient denies any chest pain chest pressure or other cardiac in place. Troponins have been negative and EKG without any acute ST changes. Continue aspirin, Plavix as well as statin and beta-lauren. Patient did present with hypertensive emergency with altered mental status and possible metabolic versus hypertensive encephalopathy. Patient initial blood pressure was 210/110 mmHg. The patient has a possible diagnosis of press syndrome that was diagnosed by neurology. Trying to rule out stroke as well as seizures with an EEG.. Recommend aggressive control of blood pressure and to keep the diastolic blood pressure around 90-100 mmHg as per the recommendations. Recommend not to decrease more than 25% of the systolic blood pressure in the first 24 hours. 02/22/2024: Pacemaker check completed and no new events since implantation. Patient pacemaker was MRI compatible in the leads as well. MRI was negative for acute hemorrhage mass effect or midline shift and there was no acute infarct. During examination patient states her right upper extremity strength is improved and is around 4/5 but still has some weakness on the left upper extremity. Patient also states that swallowing has improved and was able to drink sips of water without any major problems. Working diagnosis possible press syndrome. Recommended to keep the blood pressure with diastolic blood pressure over 90 to 100 mmHg and a systolic of around 150 to 160 mmHg and if patient continues to improve then we will need further aggressive treatment of the blood pressure. Management of rest of the medical conditions as per primary team and other consultants. Thank you for the consult and allowing me to participate in the care of the patient. Cardiology will continue to follow. Zaheer Marks M.D. Interventional Cardiology Time Spent With Patient Time: Total time spent is greater than 50% in coordination of care (as documented) at patient's floor/unit and/or counseling patient:
[2025-02-23] MEDS: ASPIRIN EC 81 MG TABEC PO (21:26)
[2025-02-23] MEDS: ATORVASTATIN CALCIUM 20 MG TABLET 80 MG PO (21:26)
[2025-02-23] MEDS: CLOPIDOGREL BISULFATE 75 MG TABLET PO (21:27)
[2025-02-23] MEDS: ALPRazoLAM 0.25 MG TABLET 1 MG PO (21:27)
[2025-02-23] MEDS: MELATONIN 3 MG TABLET PO (21:32)
[2025-02-24] VITALS (23 sets, daily range): BP systolic 81–142; BP diastolic 50–82; PULSE 72–89; RESP 14–21; TEMP 35.9–37; O2SAT 93–99; BMI 25.1
[2025-02-24] MEDS: METOCLOPRAMIDE INJ 5 MG/ML VIAL 2 ML IVP ×3 (00:24→11:35)
[2025-02-24 05:59] LABS: Basophils # (Auto) 0.1 Thou/mm3 (0.0-0.2); Basophils % (Auto) 1 % (0-2.5); Eosinophils # (Auto) 0.4 Thou/mm3 (0.0-0.5); Eosinophils % (Auto) 3 % (0-10); Hematocrit 25.7 % (36.0-46.0); Immature Granulocytes % (Auto) 3 % (0-0); Immature Granulocytes Auto 0.35 Thou/mm3 (0.00-0.00); Lymphocytes # (Auto) 2.9 Thou/mm3 (1.0-4.8); Lymphocytes % (Auto) 23 % (10-50); Mean Corpuscular HGB Conc 33.1 g/dl (31.0-37.0); Mean Corpuscular Hemoglobin 29.7 pg (25.0-35.0); Mean Corpuscular Volume 90 fL (80-100); Monocytes # (Auto) 1.1 Thou/mm3 (0.0-0.8); Monocytes % (Auto) 9 % (0-12); Neutrophils # (Auto) 7.5 Thou/mm3 (1.8-7.7); Neutrophils % (Auto) 61 % (37-80); Nucleated Red Blood Cell % 0 /100 WBC (0); Platelet Count 235 Thou/mm3 (140-440); RDW Standard Deviation 57.4 fL (36.4-46.3); Red Blood Count 2.86 Miln/mm3 (4.00-5.20); White Blood Count 12.2 Thou/mm3 (3.6-11.0)
[2025-02-24 06:14] LABS: Hemoglobin 8.5 g/dL (12.0-16.0)
[2025-02-24 06:53] LABS: Alanine Aminotransferase 17 U/L (10-49); Albumin, Serum 3.7 gm/dL (3.4-4.8); Albumin/Globulin Ratio 1.7 (1.2-2.2); Alkaline Phosphatase 62 U/L (46-116); Anion Gap 11 (7-16); Aspartate Amino Transferase 13 U/L (0-34); BUN/Creatinine Ratio 14 Ratio (12-20); Bilirubin,Total 0.6 mg/dL (0.3-1.2); Blood Urea Nitrogen 65 mg/dL (9-23); Calcium 8.9 mg/dL (8.3-10.6); Calcium (Corrected) 9.1 mg/dL (8.5-10.1); Carbon Dioxide 25.2 mMol/L (20.0-31.0); Chloride 100 mMol/L (98-107); Creatinine (Component) 4.5 mg/dL (0.6-1.3); Estimated Creatinine Clearance 11.8 mL/min (>60); Globulin 2.2 gm/dL (2.3-3.5); Glucose 90 mg/dL (74-106); Magnesium 2.4 mg/dL (1.6-2.6); Osmolality,Calculated 290 (275-295); Phosphorous 6.4 mg/dL (2.4-5.1); Sodium 136 mMol/L (136-145); Total Protein 5.9 gm/dL (5.7-8.2); eGFR 10 See Note
--- NOTE | 2025-02-24 09:07 | PC.SS ---
Follow up note: Videofluroscopy study today. Pt is d/c for today.
[2025-02-24] MEDS: HEPARIN SOD INJ 1000 UNIT/ML VIAL 10 ML 3300 UNIT INDWELLCAT (10:35)
[2025-02-24] MEDS: PANTOPRAZOLE 40 MG TABLET PO (11:22)
[2025-02-24] MEDS: DULoxetine HCL 30 MG CAPSULE PO (11:22)
[2025-02-24] MEDS: VALSARTAN 40 MG TABLET PO (11:26)
[2025-02-24] MEDS: SEVELAMER CARBONATE 800 MG TABLET PO (11:35)
--- NOTE | 2025-02-24 12:00 | ESPR_ITS ---
Documentation for date of: 02/24/25 Subjective Subjective Interval history: Patient seen and examined at the bedside. No new cardiac complaints. Pacemaker check completed and no new events since implantation. Patient pacemaker was MRI compatible in the leads as well. MRI was negative for acute hemorrhage mass effect or midline shift and there was no acute infarct. During examination patient appears to back to her baseline including her mental status as well as her motor strength. Patient also states that swallowing has improved and was able to drink sips of water without any major problems. Patient had EGD done 02/22 shows benign-appearing esophageal stenosis in the proximal part of esophagus which was dilated by gastroenterology and diaphragmatic squeeze at 42 cm with a possible 4 to 5 cm hiatal hernia. Also esophagitis noted. Patient is pending videofluoroscopic study Working diagnosis possible press syndrome but less likely as per neuro. Continue aggressive blood pressure control and diet keep systolic blood pressure between 120-140 mmHg as it could also be contributing to the encephalopathy. Patient recommended to follow-up with her plastic printer as outpatient in 1 week. Exam Vital Signs Temp Pulse Resp BP Pulse Ox O2 Del Method O2 Flow Rate 96.9 F 85 15 113/70 97 Room Air 2 02/24/25 16:20 02/24/25 17:26 02/24/25 16:20 02/24/25 16:20 02/24/25 16:20 02/24/25 16:20 02/24/25 07:24 FiO2 2 02/22/25 04:00 Narrative Exam General: Alert and oriented x3. In no acute distress. Eyes: Pupils are equal and reactive to light bilaterally. HEENT: Atraumatic, normocephalic. No JVD noted. Mucosa moist. Cardiovascular: Sternal scar appears clean. Normal S1 and S2. Normal rate and regular rhythm. No murmurs appreciated. No peripheral pitting edema noted. Respiratory: No respiratory distress. Lungs are clear to auscultation bilaterally. No wheezing or crackles heard. Abdomen: Soft, nontender, nondistended. Skin: No rash. Warm to touch. Musculoskeletal: No gross injuries. Able to move all 4 extremities. Neuro: Alert and oriented x3. 2-3/5 power in all the extremities. Cranial nerves appear to be intact Psych: Normal affect and mood Objective Labs 02/24/25 05:11 02/24/25 05:11 Labs: Laboratory Results - last 24 hr 02/24/25 05:11 WBC 12.2 H RBC 2.86 L Hgb 8.5 L Hct 25.7 L MCV 90 MCH 29.7 MCHC 33.1 RDW Std Deviation 57.4 H Plt Count 235 Neut % (Auto) 61 Lymph % (Auto) 23 [place] % (Auto) 9 Eos % (Auto) 3 Baso % (Auto) 1 Neut # (Auto) 7.5 Lymph # (Auto) 2.9 [place] # (Auto) 1.1 H Eos # (Auto) 0.4 Baso # (Auto) 0.1 Immature Gran # (Auto) 0.35 H Absolute Nucleated RBC 0.00 Immature Gran % 3 H Nucleated RBC % 0 Sodium 136 Potassium 4.0 Chloride 100 Carbon Dioxide 25.2 Anion Gap 11 BUN 65 H Creatinine 4.5 H* D Estim Creat Clear Calc 11.8 L eGFR 10 L* BUN/Creatinine Ratio 14 Glucose 90 Calculated Osmolality 290 Calcium 8.9 Corrected Calcium 9.1 Phosphorus 6.4 H Magnesium 2.4 Total Bilirubin 0.6 AST 13 ALT 17 Alkaline Phosphatase 62 Total Protein 5.9 Albumin 3.7 D Globulin 2.2 L Albumin/Globulin Ratio 1.7 ABG Interpretation ABG results: 02/18/25 19:57 ABG pH 7.32 L ABG pCO2 50 H ABG pO2 45 L* ABG HCO3 26 ABG O2 Saturation 79 L ABG Base Excess -1 Assessment & Plan A&P Narrative 60-year-old female male with a past medical history of CAD s/p CABG in May 2024 after elective cardiac authorization for a positive stress test, status post pacemaker placed in 2024 for symptomatic AV block, stage renal disease on hemodialysis on Monday and Monday, type 2 diabetes mellitus, history of gastric sleeve operation, 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 Cardiology consulted for pacemaker evaluation as the patient will need an MRI brain as recommended by neurology. 1. Symptomatic bradycardia secondary to AV block and status post pacemaker- [employer] placed in September 2024 2. Altered mental status 3. Acute metabolic encephalopathy with possible pres syndrome versus new onset seizures versus hypertensive encephalopathy 4. Hypertensive emergency 4. CAD status post CABG in May 2025 5. End-stage renal disease on hemodialysis Monday 6. Chronic anemia 7. Type 2 diabetes mellitus 8. Obesity status post gastric sleeve surgery 9. Diabetic gastroparesis 10. Depression Patient presented with altered mental status and broad differential at the present point of time including metabolic encephalopathy and hypertensive encephalopathy versus possible press syndrome. Patient does have some neurological deficits with only 2-3+ per bilaterally and has dysphagia. Neurology was consulted and recommended EEG along with MRI. Further management of altered mental status as per the neurology team. Patient does have a pacemaker placed in September [address] Allred in [place] for symptomatic bradycardia with AV block. Patient apparently did not follow-up with them only once in follows up with also he the regular plastic printer as outpatient but the primary team unable to obtain pacemaker details to have clearance for the MRI. Family informed that patient does have a [employer] pacemaker and will recontact [place] service line for side effect on- call device check and it showed patient has excellent battery and it has been only 3 months since placement. All the sensitivities, impedance and thresholds of the pacemaker are in the normal range. Baseline rate is 60 and upper limit for tracking was at 120 bpm. There has been no new events since the placement of the pacemaker. Pacemaker interrogation placed in the chart and patient has an MRI safe device as well as the leads and form completed for clearance for MRI. Patient is scheduled for the MRI today. Patient does have a history of CAD status post CABG in May 2024 with an active cardiac catheterization after positive stress test which was done as part of the preoperative workup. Patient denies any chest pain chest pressure or other cardiac in place. Troponins have been negative and EKG without any acute ST changes. Continue aspirin, Plavix as well as statin and beta-lauren. Patient did present with hypertensive emergency with altered mental status and possible metabolic versus hypertensive encephalopathy. Patient initial blood pressure was 210/110 mmHg. The patient has a possible diagnosis of press syndrome that was diagnosed by neurology. Trying to rule out stroke as well as seizures with an EEG.. Recommend aggressive control of blood pressure and to keep the diastolic blood pressure around 90-100 mmHg as per the recommendations. Recommend not to decrease more than 25% of the systolic blood pressure in the first 24 hours. 02/25/2024: Pacemaker check completed and no new events since implantation. Patient pacemaker was MRI compatible in the leads as well. MRI was negative for acute hemorrhage mass effect or midline shift and there was no acute infarct. During examination patient appears to back to her baseline including her mental status as well as her motor strength. Patient also states that swallowing has improved and was able to drink sips of water without any major problems. Patient had EGD done 02/22 shows benign-appearing esophageal stenosis in the proximal part of esophagus which was dilated by gastroenterology and diaphragmatic squeeze at 42 cm with a possible 4 to 5 cm hiatal hernia. Also esophagitis noted. Patient is pending videofluoroscopic study Working diagnosis possible press syndrome but less likely as per neuro. Continue aggressive blood pressure control and diet keep systolic blood pressure between 120-140 mmHg as it could also be contributing to the encephalopathy. Patient recommended to follow-up with her plastic printer as outpatient in 1 week. Management of rest of the medical conditions as per primary team and other consultants. Thank you for the consult and allowing me to participate in the care of the patient. Cardiology will continue to follow. Zaheer Marks M.D. Interventional Cardiology Time Spent With Patient Time: Total time spent is greater than 50% in coordination of care (as documented) at patient's floor/unit and/or counseling patient:
--- NOTE | 2025-02-24 12:08 | ESPR_ITS ---
Documentation for date of: 02/24/25 Subjective Subjective Interval history: Clinically doing much better with the dysphagia after endoscopic dilatation Exam Vital Signs Temp Pulse Resp BP Pulse Ox O2 Del Method O2 Flow Rate 98.6 F 78 18 127/67 97 Room Air 2 02/24/25 11:05 02/24/25 11:26 02/24/25 11:05 02/24/25 11:26 02/24/25 11:05 02/24/25 08:00 02/24/25 07:24 FiO2 2 02/22/25 04:00 Objective Labs 02/24/25 05:11 02/24/25 05:11 Labs: Laboratory Results - last 24 hr 02/24/25 05:11 WBC 12.2 H RBC 2.86 L Hgb 8.5 L Hct 25.7 L MCV 90 MCH 29.7 MCHC 33.1 RDW Std Deviation 57.4 H Plt Count 235 Neut % (Auto) 61 Lymph % (Auto) 23 [place] % (Auto) 9 Eos % (Auto) 3 Baso % (Auto) 1 Neut # (Auto) 7.5 Lymph # (Auto) 2.9 [place] # (Auto) 1.1 H Eos # (Auto) 0.4 Baso # (Auto) 0.1 Immature Gran # (Auto) 0.35 H Absolute Nucleated RBC 0.00 Immature Gran % 3 H Nucleated RBC % 0 Sodium 136 Potassium 4.0 Chloride 100 Carbon Dioxide 25.2 Anion Gap 11 BUN 65 H Creatinine 4.5 H* D Estim Creat Clear Calc 11.8 L eGFR 10 L* BUN/Creatinine Ratio 14 Glucose 90 Calculated Osmolality 290 Calcium 8.9 Corrected Calcium 9.1 Phosphorus 6.4 H Magnesium 2.4 Total Bilirubin 0.6 AST 13 ALT 17 Alkaline Phosphatase 62 Total Protein 5.9 Albumin 3.7 D Globulin 2.2 L Albumin/Globulin Ratio 1.7 Impressions Impression: Proximal esophagus stricture status post endoscopic dilatation Dysphagia improved after endoscopic dilatation Continue current management ABG Interpretation ABG results: 02/18/25 19:57 ABG pH 7.32 L ABG pCO2 50 H ABG pO2 45 L* ABG HCO3 26 ABG O2 Saturation 79 L ABG Base Excess -1 Assessment & Plan A&P Narrative 60-year-old female male with a past medical history of CAD s/p CABG in May 2024 after elective cardiac authorization for a positive stress test, status post pacemaker placed in 2024 for symptomatic AV block, stage renal disease on hemodialysis on Monday and Monday, type 2 diabetes mellitus, history of gastric sleeve operation, 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 Cardiology consulted for pacemaker evaluation as the patient will need an MRI brain as recommended by neurology. 1. Symptomatic bradycardia secondary to AV block and status post pacemaker- [employer] placed in September 2024 2. Altered mental status 3. Acute metabolic encephalopathy with possible pres syndrome versus new onset seizures versus hypertensive encephalopathy 4. Hypertensive emergency 4. CAD status post CABG in May 2025 5. End-stage renal disease on hemodialysis Monday 6. Chronic anemia 7. Type 2 diabetes mellitus 8. Obesity status post gastric sleeve surgery 9. Diabetic gastroparesis 10. Depression Patient presented with altered mental status and broad differential at the present point of time including metabolic encephalopathy and hypertensive encephalopathy versus possible press syndrome. Patient does have some neurological deficits with only 2-3+ per bilaterally and has dysphagia. Neurology was consulted and recommended EEG along with MRI. Further management of altered mental status as per the neurology team. Patient does have a pacemaker placed in [place] [address] Allred in [place] for symptomatic bradycardia with AV block. Patient apparently did not follow-up with them only once in follows up with also he the regular professional skater as outpatient but the primary team unable to obtain pacemaker details to have clearance for the MRI. Family informed that patient does have a [employer] pacemaker and will recontact [place] service line for side effect on- call device check and it showed patient has excellent battery and it has been only 3 months since placement. All the sensitivities, impedance and thresholds of the pacemaker are in the normal range. Baseline rate is 60 and upper limit for tracking was at 120 bpm. There has been no new events since the placement of the pacemaker. Pacemaker interrogation placed in the chart and patient has an MRI safe device as well as the leads and form completed for clearance for MRI. Patient is scheduled for the MRI today. Patient does have a history of CAD status post CABG in May 2024 with an active cardiac catheterization after positive stress test which was done as part of the preoperative workup. Patient denies any chest pain chest pressure or other cardiac in place. Troponins have been negative and EKG without any acute ST changes. Continue aspirin, Plavix as well as statin and beta-lauren. Patient did present with hypertensive emergency with altered mental status and possible metabolic versus hypertensive encephalopathy. Patient initial blood pressure was 210/110 mmHg. The patient has a possible diagnosis of press syndrome that was diagnosed by neurology. Trying to rule out stroke as well as seizures with an EEG.. Recommend aggressive control of blood pressure and to keep the diastolic blood pressure around 90-100 mmHg as per the recommendations. Recommend not to decrease more than 25% of the systolic blood pressure in the first 24 hours. 02/24/2024: Pacemaker check completed and no new events since implantation. Patient pacemaker was MRI compatible in the leads as well. MRI was negative for acute hemorrhage mass effect or midline shift and there was no acute infarct. During examination patient appears to back to her baseline including her mental status as well as her motor strength. Patient also states that swallowing has improved and was able to drink sips of water without any major problems. Patient had EGD done 02/22 shows benign-appearing esophageal stenosis in the proximal part of esophagus which was dilated by gastroenterology and diaphragmatic squeeze at 42 cm with a possible 4 to 5 cm hiatal hernia. Also esophagitis noted. Patient is pending videofluoroscopic study Working diagnosis possible press syndrome but less likely as per neuro. Continue aggressive blood pressure control and diet keep systolic blood pressure between 120-140 mmHg as it could also be contributing to the encephalopathy. Management of rest of the medical conditions as per primary team and other consultants. Thank you for the consult and allowing me to participate in the care of the patient. Cardiology will continue to follow. Zaheer Marks M.D. Interventional Cardiology Time Spent With Patient Time: Total time spent is greater than 50% in coordination of care (as documented) at patient's floor/unit and/or counseling patient:
--- NOTE | 2025-02-24 13:43 | PC.SS ---
SS has faxed patient's dialysis flow sheets and physician note to [facility] upon their request.
--- NOTE | 2025-02-24 15:11 | PC.SS ---
SS spoke to Marisela from [facility] who states they have accepted pt and will provide transportation for 5:30 pm. Phone number for report is: [phone]. Bedside nurse, Talia is aware. Pt and are aware. Chelle CROWELL is aware.
--- NOTE | 2025-02-24 15:37 | ESDS_ITS ---
Planned Discharge Date 02/24/25 DS: Providers Provider Date of admission: 02/19/25 13:39 Primary care physician: DARIAN Winter([facility] Admitting Provider: Brian Alejandre MD Attending Provider on Admission: Finn Irving DO Consults: 02/18/25 17:12 Consult to Neurology / Tele-Neurology Routine Comment: Consulting Provider: [facility] 02/19/25 13:46 Consult to Neurology / Tele-Neurology Routine Comment: PRES Consulting Provider: Kaleb Chan 02/19/25 13:48 Consult to Nephrology Stat Comment: Hemodialysis Consulting Provider: Kailey Awad 02/20/25 16:10 Speech [Referral - TECHNICAL PROPOSAL WRITER Compliance Testing Analyst] Routine Comment: 02/20/25 16:11 Referral Physical Therapy Routine Comment: Physician Instructions: 02/21/25 08:14 Referral Speech Therapy Stat Comment: 02/21/25 16:55 Consult to Gastroenterology Urgent Comment: Dysphagia Consulting Provider: Luther Castorena Attending Provider on DC: Finn Irving DO Discharging Provider: Alejandra Gan MD DS: Diagnosis Problem List Completed Was Problem List Reviewed/Reconciled?: Yes Hospital Course Hospital Course Hospital course: Reason for hospitalization: Acute encephalopathy, likely secondary to posterior reversible encephalopathy syndrome (PRES) 60-year-old female with past medical history of primary hypertension, ESRD on hemodialysis M/W/F (Dr. Awad), CAD s/p CABG (2023), third degree heart block s/p pacemaker placement (09/2024, Dr. Mehta), recurrent UTIs, non-insulin dependent type 2 diabetes, and PRES syndrome who presented on 02/19/2025 with altered mental status and abnormal movements including myoclonic jerking. On ED evaluation patient was found to be severely hypertensive to 207/106. CT brain and CTA head/neck were negative. WBC was elevated to 28, UA was positive for leukocyte esterase and WBC but there were no fevers. Patient was given loading dose of Keppra and lorazepam. Neuro was consulted and patient was admitted to the ICU for management of PRES syndrome and stroke rule out. Patient's remotely piloted vehicle controller was consulted for continuation of scheduled dialysis. Urine culture grew sensitive Enterobacter and patient completed a course of IV ceftriaxone inpatient. MRI and MR venogram of the brain were normal. Patient had improvement in mental status over subsequent days without any further myoclonic events. At first patient had dysphagia and could not pass swallow evaluation, GI was consulted. EGD was performed on 02/22/2025 which showed a moderate intrinsic stenosis of the proximal esophagus and was dilated. Patient subsequently had improvement of swallow and advanced to dysphagia diet, did well with liquids and solids without needing video fluoroscopic swallow study and was determined ready for discharge. Medication was optimized for hypertension. Patient was discharged to acute rehab. Discharge Recommendations: -Follow up with PCP within 1 week of discharge -Continue dialysis as you have scheduled and follow up with your Commercial Construction Estimator -Continue rest of medications as previously prescribed including aspirin, Plavix, and atorvastatin -Continue valsartan 40 mg qday -Return to the ED or call EMS if symptoms return and/or worsen. 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 Irving. Alejandra Gan, PGY-2 Time Spent with Patient Time attestation: Total time spent providing and/or coordinating discharge services: Time spent: Greater than 30 minutes Exam Vital Signs Temp Pulse Resp BP Pulse Ox O2 Del Method O2 Flow Rate 96.7 F L 76 21 H 127/67 99 Room Air 2 02/24/25 12:00 02/24/25 12:02/24/25 12:02/24/25 12:00 02/24/25 12:02/24/25 12:02/24/25 07:24 FiO2 2 02/22/25 04:00 Narrative Exam Constitutional:Alert, oriented x 3 and comfortable. Elderly female HEENT: Vision grossly intact. Patent nares. Trachea midline Respiratory: Chest normal on inspection and clear auscultation bilaterally. RIJ cath. Cardiovascular: S1 and S2 audible, RRR. No murmurs carotid bruit. No gross JVD. Abdominal: Soft, obese and non tender to palpation in all quadrants. BS + Genitourinary: No bladder tenderness, no flank pain. Normal to palpation Musculoskeletal: Extremities tone within normal limits. No LE edema. Neurological: CN II - XII grossly intact. Power 2/5 lower extremities, 4/5 upper extremities bilaterally. Skin: Warm, dry and intact. No apparent lesions. Psychiatric: Patient has good affect, is cooperative Discharge Plan Plan Patient Disposition: Xfer Skilled Nsg Fac (SNF) Patient condition on transfer: Stable Care Plan Goals: Discharge Recommendations: -Follow up with PCP within 1 week of discharge -Continue dialysis as you have scheduled and follow up with your Commercial Construction Estimator -Continue rest of medications as previously prescribed including aspirin, Plavix, and atorvastatin -Continue valsartan 40 mg qday -Return to the ED or call EMS if symptoms return and/or worsen. Prescriptions/Referrals Prescriptions/Med Rec: New lidocaine 5 % adhesive patch,medicated 1 patch topical QDAY Qty: 15 0RF Rx Instructions: leave on most painful area for up to 12 hrs Continued aspirin [Adult Low Dose Aspirin] 81 mg tablet,delayed release (DR/EC) 81 mg PO HS Patient Comments: pt states takes all meds at night atorvastatin 40 mg tablet 40 mg PO HS Patient Comments: pt states takes all meds at night clopidogrel 75 mg tablet 75 mg PO HS Patient Comments: pt states takes all meds at night Tradjenta 5 mg tablet 5 mg PO HS Patient Comments: pt states takes all meds at night duloxetine [Cymbalta] 30 mg capsule,delayed release(DR/EC) 30 mg PO BID B complex-vitamin C-folic acid 0.8 mg tablet 1 tab PO QDAY Patient Comments: renavite 60/300-6-8 ascorbate calcium (vitamin C) 500 mg tablet 1 g PO HS Patient Comments: pt states takes all meds at night valsartan 40 mg Tablet 40 mg PO QDAY PRN (Reason: SBP >140) Qty: 30 3RF meclizine 25 mg tablet 25 mg PO PRN PRN (Reason: dizziness) All Day Allergy (cetirizine) 10 mg capsule 10 mg PO QDAY sevelamer carbonate [Renvela] 800 mg tablet 800 mg PO TID Rx Instructions: must administer with a meal/food metoclopramide HCl [Reglan] 10 mg tablet 10 mg PO Q4H PRN (Reason: nausea) pantoprazole 40 mg tablet,delayed release (DR/EC) 40 mg PO HS alprazolam 1 mg tablet 1 mg PO PRN PRN (Reason: anxiety) Discontinued nitrofurantoin 100 mg capsule 100 mg PO Q24H Rx Instructions: must administer with a meal/food Referrals: Catalina Angulo FNP ([facility]) [Primary Care Provider] - Patient/Caregiver Discharge Instructions Discharge Activity: as per physical therapy and activity as tolerated Education Materials: Your High Blood Pressure Risk Factors, What Is High Blood Pressure?, Blood Pressure Check Steps, ED ALOC, ED Confusion, ED TIA: Transient Ischemic Attack Print Language: German Stand Alone Forms: Lou Award Info., Patient Portal Info Letter Discharge Order Discharge Orders: Discharge (Routine); Ordered 02/24/25 Ordered By: Alejandra Gan Quality Discharge Quality Measures VTE prophylaxis Attestestation Attestation I have discussed and was present for the essential components of the discharge history, physical examination, diagnosis, and discharge treatment plan with the resident. I agree with the patient's discharge care as documented by the resident and amended herein by me. Calos Irving, DO. Patient doing very well on discharge, back to baseline. Blood pressure still very labile, we did restart her on her home dose valsartan 40 mg daily. We also discharged the patient with lidocaine patches which she says has helped her back pain immensely. Patient has had a very difficult time with insomnia in the hospital, she states Xanax helped her with sleep however I am not going to prescribe that on discharge, possibly the facility physician at [facility] can add if he deems necessary. Speech did evaluate the patient today, no need for video swallow fluoroscopy at this time, the patient did have an esophageal stricture which was dilated during endoscopy 2 days prior. Patient has been swallowing well since. The patient was stable, afebrile, tolerating p.o. intake and ambulatory at time of discharge to acute rehab facility. The patient understood all discharge instructions, all questions were answered satisfactorily. The patient was instructed to return to the Emergency Department is symptoms worsened or persisted. Although this document has been carefully reviewed, there may still be some phonetic and other typographical errors. These errors are purely grammatical due to imperfections in the software program and should not be construed in any way to compromise the substance of the patient's medical care during this visit.
[2025-02-24] MEDS: LIDOCAINE 5% 1 PATCH TOP (16:22)
--- NOTE | 2025-02-24 16:45 | PC.NURSE ---
Pt expected to leave @1730 to [facility] [place]; facility is picking up patient Report at this time (8215) to Florinda from facility. Discharge packet printed; Florinda verbalize understanding to POC/instructions. Packet to be provided to transport team for hand off upon arrival to unit.
== END 2025-02-24 17:23 | disposition skilled nursing facility (03) | DRG 70 ==
LOC: SERX 02-19 12:53 → SERHOLD 02-19 14:06 → S2SX 02-19 15:33 → S2NX 02-20 17:18
PROVIDERS: Emergency Medicine; Family Medicine; Specialist; Admitting Provider Internal Medicine Critical Care Medicine; Emergency Provider Emergency Medicine; PCP Nurse Practitioner Primary Care; Visit Provider Student in an Organized Health Care Education/Training Program
PROC: 0D758ZZ Dilation of Esophagus, Via Natural or Artificial Opening Endoscopic (ICD-10-PCS; CPT 43239; principal; 2025-02-22 14:30)
DX: I67.83 Posterior reversible encephalopathy syndrome (principal); K20.91 Esophagitis, unspecified with bleeding; N18.6 End stage renal disease; N39.0 Urinary tract infection, site not specified; I12.0 Hypertensive chronic kidney disease with stage 5 chronic kidney disease or end stage renal disease; I16.1 Hypertensive emergency; R56.9 Unspecified convulsions; E11.22 Type 2 diabetes mellitus with diabetic chronic kidney disease; Z99.2 Dependence on renal dialysis; Z95.1 Presence of aortocoronary bypass graft; I25.10 Atherosclerotic heart disease of native coronary artery without angina pectoris; Z95.0 Presence of cardiac pacemaker; I95.2 Hypotension due to drugs; E11.43 Type 2 diabetes mellitus with diabetic autonomic (poly)neuropathy; K31.84 Gastroparesis; E11.319 Type 2 diabetes mellitus with unspecified diabetic retinopathy without macular edema; Z87.440 Personal history of urinary (tract) infections; Z86.73 Personal history of transient ischemic attack (TIA), and cerebral infarction without residual deficits; Z79.82 Long term (current) use of aspirin; Z79.4 Long term (current) use of insulin; E78.5 Hyperlipidemia, unspecified; F32.A Depression, unspecified; G25.3 Myoclonus; G93.41 Metabolic encephalopathy; I48.91 Unspecified atrial fibrillation; K22.2 Esophageal obstruction; I65.02 Occlusion and stenosis of left vertebral artery; E83.39 Other disorders of phosphorus metabolism; I44.30 Unspecified atrioventricular block; R32 Unspecified urinary incontinence; Z79.84 Long term (current) use of oral hypoglycemic drugs; Z79.891 Long term (current) use of opiate analgesic; K44.9 Diaphragmatic hernia without obstruction or gangrene; Z79.899 Other long term (current) drug therapy; Z90.710 Acquired absence of both cervix and uterus; Z98.84 Bariatric surgery status
CPT/HCPCS: 36415; 36600; 70450; 70496; 70498; 70551; 71045; 74022; 80053; 80061; 80202; 80307; 80320; 80329; 81001; 82271; 82803; 83036; 83605; 83615; 83735; 83880; 84100; 84145; 84443; 84484; 85025; 85046; 85610; 85730; 86965; 87040; 87077; 87081; 87086; 87186; 92526; 92610; 93005; 95816; 96361; 96365; 96366; 96367; 96374; 96375; 96376; 97162; 99285; A4649; C1769; J0360; J0696; J1200; J1643; J1644; J1815; J1953; J1956; J2060; J2250; J2405; J2543; J2765; J3010; J3370; J3475; J3490; J7030; J7999; P9047; Q9967; A9270; G0480; J1920

== ENCOUNTER 2025-03-13 11:11 | Emergency (ER) | payer MEDICARE, MEDICAID, SELFPAY ==
[2025-03-13] VITALS (9 sets, daily range): BP systolic 119–164; BP diastolic 65–87; PULSE 81–104; RESP 13–19; TEMP 36.6–36.9; O2SAT 97–100; BMI 24.2
--- NOTE | 2025-03-13 11:32 | EKG_ITS ---
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
--- NOTE | 2025-03-13 11:37 | XR_ITS ---
Examination: AP chest single view Technique one AP portable semiupright chest single view Date and time: March 13, 2025 1156 hours Comparison February 21, 2025 INDICATIONS: Chest pain today. FINDINGS: Normal heart size Cardiac leads satisfactory position. No aspiration pneumonia. No pulmonary edema. Right internal jugular dialysis catheter SVC satisfactory position IMPRESSION: Negative for aspiration pneumonia
--- NOTE | 2025-03-13 11:39 | EDNOTE_ITS ---
ED Seizures RME/HPI General Chief Complaint: Seizure Stated Complaint: SEIZURE Time Seen by Provider: 03/13/25 11:21 Arrival date/time: 03/13/25 11:11 RME / HPI RME / HPI Narrative: 64-year-old female patient with significant history of hypertension, diabetes mellitus end-stage renal disease, last hemodialysis yesterday was brought in by EMS for evaluation regarding possible unresponsiveness. Patient was transfer from chair to her car on the process of transferring her daughter weakness heard her lower eyelid is flickering, and brief episode of unresponsiveness. Patient did not develop any postictal confusion. Total timeframe according to the daughter was about 25 seconds. Currently patient is alert oriented x 3 only complains of a headache. Severity mild. Denies any upper or lower extremity weakness denies any slurring of speech. Related Data Home Medications ?Medication ?Instructions ?Recorded ?Confirmed aspirin 81 mg tablet,delayed 81 mg PO HS 11/28/2401/27 release (Adult Low Dose Aspirin) atorvastatin 40 mg tablet 40 mg PO HS 11/28/24 5 clopidogrel 75 mg tablet 75 mg PO HS 11/28/24 5 duloxetine 30 mg capsule,delayed 30 mg PO BID 11/28/24 02/19/25 release (Cymbalta) linagliptin 5 mg tablet (Tradjenta) 5 mg PO HS 5 02/19/25 ascorbate calcium (vitamin C) 500 1 g PO HS 12/01/24 0 02/19/25 mg tablet vitamin B complex-vitamin C-folic 1 tab PO QDAY 02/19/25 acid 0.8 mg tablet meclizine 25 mg tablet 25 mg PO PRN PRN dizziness 0 01/08/25 02/19/25 alprazolam 1 mg tablet 1 mg PO PRN PRN anxiety 01/2702/21/25 cetirizine 10 mg capsule (All Day 10 mg PO QDAY 02/19/25 Allergy (cetirizine)) metoclopramide HCl 10 mg tablet 10 mg PO Q4H PRN nause a 02/19/25 02/19/25 (Reglan) pantoprazole 40 mg tablet,delayed 40 mg PO HS 02/19/25 02/19/25 release sevelamer carbonate 800 mg tablet 800 mg PO TID 02/19/25 (Renvela) Previous Rx's ?Medication ?Instructions ?Recorded valsartan 40 mg tablet 40 mg PO QDAY PRN SBP >140 # 30 tabs 12/02/24 lidocaine 5 % topical patch 1 patch topical QDAY pain #15 ea 02/24/25 Allergies Allergy/AdvReac Type Severity Reaction Status Date / Time No Known Allergies Allergy Verified 02/22/25 15:54 Review of Systems Review of Systems Narrative Review of Systems: Review of system reviewed and within normal limits except mentioned in HPI ED Exam Narrative Physical exam: VITAL SIGNS: Reviewed. GENERAL APPEARANCE: Alert and interactive, follows commands, no acute distress, HEAD AND FACE: Non-traumatic. ENT: PERRL, pink conjunctivitis, eyelid no trauma, Mucous membrane moist. NECK: Supple, nontender, no nuchal rigidity. CHEST: No tenderness, no crepitus, no paradoxical movement, no retractions. LUNGS: Clear, well ventilated, symmetric, no rales, no wheezing, no ronchi, no stridor, good breath sounds bilaterally. Right perm cath intact dressing intact no drainage noted HEART: Regular rate, regular rhythm, no murmur, no gallops. ABDOMEN: Soft, positive bowel sounds, nondistended, no guarding, nontender, no rebound, no masses, RECTAL: Deferred. GENITAL: Deferred. NEUROLOGICAL: Gross motor function intact sensory function intact, Appropriate for age. MUSCULOSKELETAL: low back nontender, full range of motion. EXTREMITIES: Nontender, full range of motion. SKIN: Color pink, dry, no rash, no lacerations, no abrasions, no contusions. LYMPHATICS: Deferred. Course Quality Measures none Orders Category Date Time Status EKG (ED ONLY) *Do not use* NOW Care 03/13/25 11:32 Completed EKG (ED ONLY) *Do not use* NOW Care 03/13/25 11:38 Completed Transfuse,blood/blood products NOW Care 03/13/25 13:28 Completed EKG (ED Only) Stat Exams 03/13/25 11:32 Draft EKG (ED Only) Stat Exams 03/13/25 11:38 Ordered XR chest 1V Stat Exams 03/13/25 11:37 Completed CBC Stat Lab 03/13/25 11:46 Completed Comprehensive Metabolic Panel Stat Lab 03/13/25 11:46 Completed Lactate (Lactic Acid) Stat Lab 03/13/25 11:46 Completed Magnesium Stat Lab 03/13/25 11:46 Completed Packed Cells [Red Blood Cells] Stat Lab 03/13/25 13:52 Results Partial Thromboplastin Time Stat Lab 03/13/25 11:46 Completed Type and Screen Stat Lab 03/13/25 13:52 Results Urinalysis, C/S if Indicated Stat Lab 03/13/25 20:05 Completed Acetaminophen Tab [Tylenol ES Tab] Med 03/13/25 11:44 Discontinued 1,000 mg PO X1 ONE Magnesium Sulfate 1 gm Ivpb [Magnesium Sulfate Ivpb] Med 03/13/25 14:23 Discontinued 1 gm in 100 ml IV X1 Vital Signs Vital signs: Vital Signs Temperature 98 F 03/13/25 11:25 Pulse Rate 98 03/13/25 11:25 Respiratory Rate 16 03/13/25 11:25 Blood Pressure 141/83 H 03/13/25 11:25 Pulse Oximetry (%) 100 03/13/25 11:25 Oxygen Delivery Method Room Air 03/13/25 11:25 Seizure MDM Narrative MDM Narrative:: 64-year-old female patient with significant history of hypertension, diabetes mellitus end-stage renal disease, last hemodialysis yesterday was brought in by EMS for evaluation regarding possible unresponsiveness. Patient was transfer from chair to her car on the process of transferring her daughter weakness heard her lower eyelid is flickering, and brief episode of unresponsiveness. Patient did not develop any postictal confusion. Total timeframe according to the daughter was about 25 seconds. Currently patient is alert oriented x 3 only complains of a headache. Severity mild. Denies any upper or lower extremity weakness denies any slurring of speech. Patient's laboratory workup is significant for hemoglobin of 7.7, hematocrit of 22.8. Patient is symptomatic so I decided to give 1 unit of packed RBC. Patient CMP showed creatinine of 3.0 BUN of 24. Urinalysis no UTI patient tolerated blood transfusion with no reaction noted. No recurrence of symptoms noted in the ED. Patient data External records reviewed:: None Clinical information provided by:: patient Social determinants that could affect healthcare access:: none Patient has the following chronic illnesses:: Hypertension, ESRD How is presenting disease/condition affected by chronic disease/condition?: exacerbated by Evaluation data The following diagnostics were reviewed and interpreted by me:: lab results, radiology exam(s) and EKG tracing(s) Lab and/or radiology exams considered but not ordered:: None Interpretation Summary: Chest x-ray came back unremarkable. EKG showed normal sinus rhythm, ventricular rate of 95 bpm, no ST segment elevation depression noted. Medications / Prescriptions Medications or Prescriptions considered but not ordered:: None Medication administrations:: Medication Administration History Discontinued Medications Acetaminophen (Acetaminophen 500 Mg Tablet) 1,000 mg PO X1 ONE Stop: 03/13/25 11:45 Last Admin: 03/13/25 12:22 Dose: Not Given Documented By: NARENDRA Non-Admin Reason: Cancelled by Provider Magnesium Sulfate/Dextrose (Magnesium Sulfate Ivpb) 1 gm in 100 mls @ 100 mls/hr IV X1 ONE Stop: 03/13/25 15:22 Last Infusion: 03/13/25 15:41 Dose: Infused Documented By: Admin: 03/13/25 14:41 Dose: 100 mls/hr Documented By: NARENDRA Tylenol, magnesium sulfate Consultations Consultation(s) initiated? (list below): No Diagnosis Seizure Differential Diagnosis: generalized seizure, new onset seizure and status epilepticus Most likely diagnosis given after review of the tests above:: Vasovagal syncope, anemia, ESRD Admission Indicated Admission indicated?: not indicated Admission Request Was there a request for admission?: No Disposition Plan Disposition Plan: Discharge Discharge Attestation Discharge Attestation: The patient and all family members were given an opportunity to ask questions and understood the discharge instructions. Discharge instructions specifically effects, indications for sooner follow up or return to the emergency department, and the expected course of current diagnosis. Patient condition: Stable Discharge Plan Plan Patient Disposition: HOME (Self Care) Discharge Disposition comment: Stable Prescriptions/Referrals Prescriptions/Med Rec: No Action aspirin [Adult Low Dose Aspirin] 81 mg tablet,delayed release (DR/EC) 81 mg PO HS Patient Comments: pt states takes all meds at night atorvastatin 40 mg tablet 40 mg PO HS Patient Comments: pt states takes all meds at night clopidogrel 75 mg tablet 75 mg PO HS Patient Comments: pt states takes all meds at night Tradjenta 5 mg tablet 5 mg PO HS Patient Comments: pt states takes all meds at night duloxetine [Cymbalta] 30 mg capsule,delayed release(DR/EC) 30 mg PO BID B complex-vitamin C-folic acid 0.8 mg tablet 1 tab PO QDAY Patient Comments: renavite 60/300-6-8 ascorbate calcium (vitamin C) 500 mg tablet 1 g PO HS Patient Comments: pt states takes all meds at night valsartan 40 mg Tablet 40 mg PO QDAY PRN (Reason: SBP >140) Qty: 30 3RF meclizine 25 mg tablet 25 mg PO PRN PRN (Reason: dizziness) All Day Allergy (cetirizine) 10 mg capsule 10 mg PO QDAY sevelamer carbonate [Renvela] 800 mg tablet 800 mg PO TID Rx Instructions: must administer with a meal/food metoclopramide HCl [Reglan] 10 mg tablet 10 mg PO Q4H PRN (Reason: nausea) pantoprazole 40 mg tablet,delayed release (DR/EC) 40 mg PO HS alprazolam 1 mg tablet 1 mg PO PRN PRN (Reason: anxiety) lidocaine 5 % adhesive patch,medicated 1 patch topical QDAY Qty: 15 0RF Rx Instructions: leave on most painful area for up to 12 hrs Referrals: Kev ([facility]),LUIS Arnold [Primary Care Provider] - In 1 week Problem List Clinical Impression: Near syncope, Anemia, ESRD (end stage renal disease) on dialysis Patient/Caregiver Discharge Instructions Discharge Activity: activity as tolerated Education Materials: Anemia Additional Instructions: Thank you for the opportunity for serving you today. You are stable for discharged . You are advised to: Follow-up with your PCP in 1 to 2 days Return to ED for worsening of symptoms Print Language: Chinese Stand Alone Forms: Lou Award Info., Patient Portal Info Letter RAE/DARIAN Supervising Physician RAE/DARIAN Supervising Physician: MD Ann
[2025-03-13 11:57] LABS: Basophils # (Auto) 0.1 Thou/mm3 (0.0-0.2); Basophils % (Auto) 1 % (0-2.5); Eosinophils # (Auto) 0.2 Thou/mm3 (0.0-0.5); Eosinophils % (Auto) 2 % (0-10); Hematocrit 22.8 % (36.0-46.0); Immature Granulocytes Auto 0.08 Thou/mm3 (0.00-0.00); Lactate (Lactic Acid) 1.8 mMol/L (0.4-2.0); Lymphocytes # (Auto) 1.3 Thou/mm3 (1.0-4.8); Lymphocytes % (Auto) 13 % (10-50); Mean Corpuscular HGB Conc 33.8 g/dl (31.0-37.0); Mean Corpuscular Hemoglobin 30.3 pg (25.0-35.0); Mean Corpuscular Volume 90 fL (80-100); Monocytes # (Auto) 0.7 Thou/mm3 (0.0-0.8); Monocytes % (Auto) 8 % (0-12); Neutrophils # (Auto) 7.5 Thou/mm3 (1.8-7.7); Neutrophils % (Auto) 76 % (37-80); Nucleated Red Blood Cell # 0.00 Thou/mm3 (0.00-0.00); Nucleated Red Blood Cell % 0 /100 WBC (0); Platelet Count 272 Thou/mm3 (140-440); RDW Standard Deviation 57.0 fL (36.4-46.3); Red Blood Count 2.54 Miln/mm3 (4.00-5.20); White Blood Count 9.8 Thou/mm3 (3.6-11.0)
[2025-03-13 12:05] LABS: Hemoglobin 7.7 g/dL (12.0-16.0)
[2025-03-13 12:09] LABS: Partial Thromboplastin Time 24.1 Seconds (22.0-36.0)
[2025-03-13 12:12] LABS: Alanine Aminotransferase 17 U/L (10-49); Albumin, Serum 4.0 gm/dL (3.4-4.8); Albumin/Globulin Ratio 1.7 (1.2-2.2); Alkaline Phosphatase 92 U/L (46-116); Anion Gap 10 (7-16); Aspartate Amino Transferase 17 U/L (0-34); BUN/Creatinine Ratio 8 Ratio (12-20); Bilirubin,Total 0.6 mg/dL (0.3-1.2); Blood Urea Nitrogen 24 mg/dL (9-23); Calcium 9.7 mg/dL (8.3-10.6); Calcium (Corrected) 9.7 mg/dL (8.5-10.1); Carbon Dioxide 26.4 mMol/L (20.0-31.0); Chloride 103 mMol/L (98-107); Creatinine (Component) 3.0 mg/dL (0.6-1.3); Estimated Creatinine Clearance 17.7 mL/min (>60); Globulin 2.3 gm/dL (2.3-3.5); Glucose 193 mg/dL (74-106); Magnesium 1.5 mg/dL (1.6-2.6); Osmolality,Calculated 286 (275-295); Potassium 4.1 mMol/L (3.4-5.1); Sodium 139 mMol/L (136-145); Total Protein 6.3 gm/dL (5.7-8.2); eGFR 17 See Note
--- NOTE | 2025-03-13 19:17 | PC.NURSE ---
SPOKE WITH KEVIN FROM BLOOD BANK ABOUT NOT BEING ABLE TO ENTER BLOOD VITALS Q15 INFORMED HIM I WOULD BE ENTERING VITAL SIGNS ON NORMAL VITAL SIGNS AT 1752 AND 1807
--- NOTE | 2025-03-13 19:51 | PC.NURSE ---
BLOOD TRANSFUSION FINISHED, NO ADVERSE REACTION, HR=91,RESP=18, KS=314/101, O2 SATS=99, TEMP= 98.8.
[2025-03-13 20:28] LABS: Collection Type, Urine Clean Catch
[2025-03-13 21:12] LABS: Bacteria,Urine 2+; Bilirubin,Urine Negative (Negative); Blood,Urine Negative (Negative); Clarity,Urine Clear (Clear/Hazy); Color,Urine Lt-Yellow (Lt Yel-Yel); Culture Indicated,Urine Contaminated; Glucose, Urine Trace (Negative); Ketones,Urine Negative (Negative); Leukocyte Esterase,Urine Negative (Negative); Nitrite,Urine Negative (Negative); PH,Urine 8.5 (5.0-7.0); Protein,Urine 2+ (Neg - Trace); RBC,Urine 2 /hpf (0-3); Specific Gravity,Urine 1.012 (1.001-1.035); Squamous Epithelial Cell,Urine 18 /hpf (0-5); Urobilinogen,Urine Negative mg/dL (0.0-1.0); WBC,Urine 2 /hpf (0-5)
== END 2025-03-13 21:21 | disposition home or self-care (01) ==
PROVIDERS: Nurse Practitioner Family; Emergency Provider Family Medicine; PCP Physician Assistant
DX: I12.0 Hypertensive chronic kidney disease with stage 5 chronic kidney disease or end stage renal disease (principal); E11.22 Type 2 diabetes mellitus with diabetic chronic kidney disease; N18.6 End stage renal disease; D63.1 Anemia in chronic kidney disease; R55 Syncope and collapse; R94.31 Abnormal electrocardiogram [ECG] [EKG]; Z99.2 Dependence on renal dialysis; Z79.84 Long term (current) use of oral hypoglycemic drugs
CPT/HCPCS: 36415; 36430; 71045; 80053; 81001; 83605; 83735; 85025; 85730; 86850; 86900; 86901; 86923; 93005; 96365; 99284; J3475; P9016

== ENCOUNTER 2025-05-27 20:41 | Inpatient (IN) | payer MEDICARE, MEDICAID, SELFPAY ==
[2025-05-27] VITALS (10 sets, daily range): BP systolic 184–216; BP diastolic 104–132; PULSE 79–111; RESP 14–28; O2SAT 99–100; BMI 26.6
--- NOTE | 2025-05-27 20:41 | PD.EDNV ---
Nausea/Vomit./Diarrhea-RME/HPI General Chief complaint: General Adult/Misc Complain Stated complaint: HIGH BP Time Seen by Provider: 05/27/25 20:43 Arrival date/time: 05/27/25 20:41 RME / HPI RME / HPI Narrative: Dr. Wilson?s Main ED Evaluation: 64yo female with a history of ESRD on hemodialysis M/W/F (Dr. Awad), HTN, CAD s/p CABG (2023), third degree heart block s/p pacemaker placement (09/2024, Dr. Mehta), recurrent UTIs, DMII, PRES syndrome BIBA from home presents to the ED for complaints of nausea and dry heaving. Patient states her blood pressure has been higher than normal. With EMS, blood pressure was 250/115. Patient normally has nausea and dry heaving when her blood pressure is too high. EMS administered Zofran 4mg en route. Patient denies any chest pain, shortness of breath, abdominal pain, or any other associated symptoms. Patient has been compliant with her medications and dialysis. She was last dialyzed yesterday. NKA. Related Data Home Medications ?Medication ?Instructions ?Recorded ?Confirmed aspirin 81 mg tablet,delayed 81 mg PO HS 11/28/24 02/19/25 release (Adult Low Dose Aspirin) atorvastatin 40 mg tablet 40 mg PO HS 11/28/24 02/19/25 clopidogrel 75 mg tablet 75 mg PO HS 11/28/24 02/19/25 duloxetine 30 mg capsule,delayed 30 mg PO BID 11/28/24 02/19/25 release (Cymbalta) linagliptin 5 mg tablet (Tradjenta) 5 mg PO HS 11/28/24 02/19/25 ascorbate calcium (vitamin C) 500 1 g PO HS 12/01/24 02/19/25 mg tablet vitamin B complex-vitamin C-folic 1 tab PO QDAY 12/01/24 02/19/25 acid 0.8 mg tablet meclizine 25 mg tablet 25 mg PO PRN PRN dizziness 01/08/25 02/19/25 alprazolam 1 mg tablet 1 mg PO PRN PRN anxiety 02/19/25 02/21/25 cetirizine 10 mg capsule (All Day 10 mg PO QDAY 02/19/25 02/19/25 Allergy (cetirizine)) metoclopramide HCl 10 mg tablet 10 mg PO Q4H PRN nausea 02/19/25 02/19/25 (Reglan) pantoprazole 40 mg tablet,delayed 40 mg PO HS 02/19/25 02/19/25 release sevelamer carbonate 800 mg tablet 800 mg PO TID 02/19/25 02/19/25 (Renvela) Previous Rx's ?Medication ?Instructions ?Recorded valsartan 40 mg tablet 40 mg PO QDAY PRN SBP >140 #30 tabs 12/02/24 lidocaine 5 % topical patch 1 patch topical QDAY pain #15 ea 02/24/25 Allergies Allergy/AdvReac Type Severity Reaction Status Date / Time No Known Allergies Allergy Verified 02/22/25 15:54 Review of Systems Review of Systems Systems Reviewed: All systems reviewed, normal except as documented Past Medical History Past Medical History NEUROLOGIC: Positive Neurological Disorders, Cerebrovascular Accident (2010, no deficits) and Seizures CARDIAC: Positive Cardiac Disorders, Hypercholesterolemia, Hypertension and Hypotension; Negative Congestive Heart Failure RESPIRATORY: Positive Asthma (seasonal per daughter); Negative Chronic Obstructive Pulmonary Disease (COPD) GASTROINTESTINAL: Positive Gastrointestinal Disorders, Esophageal Varices and Gastroesophageal Reflux Disease GENITOURINARY: Positive Genitourinary Disorders and Dialysis (M/W/F) MUSCULOSKELETAL: Negative Musculoskeletal Disorders ENDOCRINE: Positive Endocrine Disorders and Diabetes Mellitus Type 2; Negative Diabetes Mellitus Type 1 HEMATOLOGIC: Negative Blood Disorders or Sickle Cell Disease PSYCHO/SOCIAL: Positive Anxiety OTHER HISTORY: Positive Falls (01/2025), Blood Transfusions, Chicken Pox, Measles and Mumps; Negative Blood Transfusion Reaction, Anesthesia Reactions or Cancer Family History FAMILY HISTORY: Positive Family Cancer Surgical History SURGICAL: Positive Open Heart Surgery, Coronary Artery Bypass Graft, Pacemaker, Abdominal Surgery, Gastric Bypass Surgery, Hysterectomy and Section Social History SMOKING STATUS: Never smoker SUBSTANCE USE: does not use ED Exam Narrative Physical exam: Generally the patient is alert dry heaving and ill-appearing, heart regular rate and rhythm, chest shows right upper chest Vas-Cath to be in place, lungs clear to auscultation, abdomen is scarred slightly distended and tympanic but nontender, extremities show capillary refill delayed with minimal pitting edema, neurologic exam [place] Coma Scale is 15 without focal motor deficits Course Quality Measures none Orders Category Date Time Status CT Screening NOW Care 05/27/25 21:51 Active EKG (ED ONLY) *Do not use* NOW Care 05/27/25 20:[address] abdomen pelvis w con Stat Exams 05/27/25 21:51 Completed EKG (ED Only) Stat Exams 05/27/25 20:44 Draft BMP [Basic Metabolic Panel] Stat Lab 05/27/25 22:45 Completed Beta Hydroxybutyrate Stat Lab 05/27/25 22:49 Completed CBC Stat Lab 05/27/25 20:55 Completed CMP [Comprehensive Metabolic Panel] Stat Lab 05/27/25 20:55 Completed Lactic Acid [Lactate (Lactic Acid)] Stat Lab 05/27/25 22:49 Completed Lipase Stat Lab 05/27/25 20:55 Completed Troponin I Stat Lab 05/27/25 20:55 Completed UA, C/S IF [Urinalysis, C/S if Indicated] Stat Lab 05/27/25 21:30 Completed VBG [Venous Blood Gas] Stat Lab 05/27/25 22:49 Completed Labetalol IV [Trandate IV] Med 05/27/25 20:43 Discontinued 40 mg IVP X1 ONE Metoclopramide Inj [Reglan Inj] Med 05/27/25 23:06 Discontinued 10 mg .ROUTE .STK-MED ONE Metoclopramide Inj [Reglan Inj] Med 05/27/25 23:05 Discontinued 10 mg IVP X1 ONE Ondansetron Inj [Zofran Inj] Med 05/27/25 20:43 Discontinued 4 mg IVP X1 ONE Sodium Chloride 0.9% 1000 ml [Ns] 1,000 ml Med 05/27/25 21:51 Discontinued IV 999 mls/hr hydrALAZINE INJ [Apresoline Inj] Med 05/28/25 00:33 Discontinued 20 mg .ROUTE .STK-MED ONE hydrALAZINE INJ [Apresoline Inj] Med 05/27/25 21:36 Discontinued 20 mg IVP X1 ONE hydrALAZINE INJ [Apresoline Inj] Med 05/28/25 00:32 Discontinued 20 mg IVP X1 ONE Vital Signs Vital signs: Vital Signs Pulse Rate 111 H 05/27/25 20:57 Blood Pressure 216/132 H 05/27/25 20:57 Nausea/Vomiting/Diarrhea MDM Narrative MDM Narrative:: Scribe Attestation: 05/27/25 Suzanne Kessler am scribing for and in the presence of Dr. Wilson. Patient presented with a blood pressure of 250/115. Patient received labetalol 40 mg IV which helped decrease the blood pressure 200/105. Patient then received 20 mg of hydralazine IV which helped decrease the blood pressure to 180/103. Patient had a slightly increased anion gap metabolic acidosis on the comprehensive metabolic panel with poor renal function because the patient does have a history of end-stage renal disease on hemodialysis. Potassium is normal. Blood sugar was 250. pH on venous blood gas was 7.41. Patient was hydrated with a liter normal saline given Zofran 4 mg IV and Reglan 10 mg IV for her nausea with benefit. Basic metabolic panel was then rechecked after IV hydration and the CO2 is still at 15 and anion gap is 18 with a blood sugar of 292. Still with a pH of 7.41 I question DKA at this time. Patient denies any chest pain or shortness of breath. There is no alteration in mental status. Patient does have a history of posterior reversible encephalopathy syndrome. Patient's blood pressure was rising here in the emergency room again so the patient received hydralazine 20 mg IV with repeat blood pressure pending. CT scan done the abdomen and pelvis with IV contrast showed a nonspecific colitis without obstruction. At this time there is no evidence of acute endorgan damage. I did discuss this case with the hospitalist and the patient will require admission to the hospital for further treatment and evaluation for her dehydration with metabolic acidosis with continued vomiting with evidence for nonspecific colitis on CT scan and her poorly controlled hypertension. I interpreted all labs. Differential diagnosis: Hypertensive emergency, diabetic ketoacidosis, bowel obstruction, colitis, dehydration, medical noncompliance Patient data External records reviewed:: [facility] previous records (Per chart review, patient was seen here on 03/13/25 for anemia. ) and EMS form Clinical information provided by:: patient and EMS Social determinants that could affect healthcare access:: none Patient has the following chronic illnesses:: ESRD on hemodialysis M/W/F (Dr. Awad), HTN, CAD s/p CABG (2023), third degree heart block s/p pacemaker placement (09/2024, Dr. Mehta), recurrent UTIs, non-insulin dependent type 2 diabetes, and PRES syndrome How is presenting disease/condition affected by chronic disease/condition?: caused by Evaluation data The following diagnostics were reviewed and interpreted by me:: lab results, radiology exam(s) and EKG tracing(s) Lab and/or radiology exams considered but not ordered:: none Interpretation Summary: [place] [facility] Report Signed Patient: KAREN BARNES Record#: [id number] Birthdate: 1960 Age/Sex: 64 / F Location: [facility] Attending Dr: Ordering Physician: Dong Wilson DO Date of Service: 05/27/25 Procedure(s): CT abdomen pelvis w con Accession Number(s): [id number] cc: Dain Quick MD; Dnog Wilson DO; ALBERTO MARTINEZ Examination: CT abdomen with intravenous contrast CT pelvis with intravenous contrast 2-D coronal reconstructions 2-D sagittal reconstructions Date and time of exam:May 27, 2025, 11:22 PM Indications: Abdominal pain with high blood pressure today Comparison: January 08, 2025. CTDI: vol (mGy) 8.98 DLP: (mGycm) 500 Technique: Multiple axial sections of the abdomen and pelvis have been obtained. 64 slice high-resolution scanner used. 3 mm axial sections have been obtained, post intravenous injection 60 cc [id number] 2-D sagittal, coronal reconstructions obtained. Low dose protocols were performed. One or more of the following dose reduction techniques were used; automated exposure control, adjustment of the mA and/or KV according to patient size, use of iterative reconstruction technique. Findings: Mild enlargement cardiac contour No focal liver or splenic lesion Absent gallbladder No pancreatic or adrenal mass Perinephric stranding Numerous bilateral renal calculi ranging in size from 1 to 8 mm Significant renal scar formation No hydronephrosis or ureteral calculi Aortic calcification no aneurysmal dilatation Normal appendix The entire colon shows wall thickening and hyperemia There is considerable patient motion Urinary bladder intact Prominent osteopenia Impression: Perinephric stranding, consider urinary tract infection Bilateral nonobstructing renal calculi Significant bilateral renal scar formation, no hydronephrosis or ureteral calculi Normal appendix Diffuse moderate nonspecific colitis pattern, differential would include Crohn's disease, ulcerative colitis No bowel obstruction Dictated By: Dain Quick MD Signed By: <Electronically signed by Dain Quick MD in OV> 05/27/25 0286 Medications / Prescriptions Medications / Prescriptions considered but not ordered:: none Medication administrations:: Medication Administration History Discontinued Medications Hydralazine HCl (Hydralazine Inj 20 Mg/Ml Vial) 20 mg IVP X1 ONE Stop: 05/27/25 21:37 Last Admin: 05/27/25 21:49 Dose: 20 mg Documented By: BCECA Hydralazine HCl (Hydralazine Inj 20 Mg/Ml Vial) 20 mg IVP X1 ONE Stop: 05/28/25 00:33 Last Admin: 05/28/25 00:44 Dose: 20 mg Documented By: BECCA Hydralazine HCl (Hydralazine Inj 20 Mg/Ml Vial) Confirm Administered Dose 20 mg .ROUTE .STK-MED ONE Stop: 05/28/25 00:34 Last Admin: 05/28/25 00:43 Dose: Not Given Documented By: BECCA Non-Admin Reason: over ride med Sodium Chloride (Ns) 1,000 mls @ 999 mls/hr IV .Q1H1M ONE Stop: 05/27/25 22:51 Last Admin: 05/27/25 21:58 Dose: 999 mls/hr Documented By: BECCA Labetalol HCl (Labetalol Inj 5 Mg/Ml Vial 20 Ml) 40 mg IVP X1 ONE Stop: 05/27/25 20:44 Last Admin: 05/27/25 20:57 Dose: 40 mg Documented By: MADELINE Metoclopramide HCl (Metoclopramide Inj 5 Mg/Ml Vial 2 Ml) 10 mg IVP X1 ONE; Protocol Stop: 05/27/25 23:06 Last Admin: 05/27/25 23:42 Dose: 10 mg Documented By: BECCA Metoclopramide HCl (Metoclopramide Inj 5 Mg/Ml Vial 2 Ml) Confirm Administered Dose 10 mg .ROUTE .STK-MED ONE Stop: 05/27/25 23:07 Last Admin: 05/27/25 23:37 Dose: Not Given Documented By: BECCA Non-Admin Reason: Duplicate Medication on eMAR Ondansetron HCl (Ondansetron Inj 2 Mg/Ml Inj 2 Ml) 4 mg IVP X1 ONE; Protocol Stop: 05/27/25 20:44 Last Admin: 05/27/25 20:56 Dose: 4 mg Documented By: MADELINE see above Consultations Consultation(s) initiated? (list below): Yes Consultation #1 (Physician, Specialty, Details): Discussed case with the resident physician, attending Dr. Wolf from Hospitalist service regarding admission. Discussed patients ED course, exam findings, labs, and radiology results. The Hospitalist agrees to accept the patient for admission. Time: 00:45 Diagnosis Nausea Differential Diagnosis: other (See MDM) Most likely diagnosis given after review of the tests above:: see clinical impression below Admission Indicated Admission indicated?: indicated Admission Request Was there a request for admission?: Yes Admission Attestation Admission request attestation: Discussed case with [] from Hospitalist service regarding admission. Discussed patients ED course, exam findings, labs, and radiology results. The Hospitalist [agrees,declines] to accept the patient for admission. Disposition Plan Disposition Plan: Admit Critical Care Time Critical Care Time Critical Care Time: Yes Total Critical Care Time (min.): 35 Attestation: Excluding other billable procedures Discharge Plan Plan Patient Disposition: Admit Acute Care w/in Hospital Prescriptions/Referrals Prescriptions/Med Rec: No Action aspirin [Adult Low Dose Aspirin] 81 mg tablet,delayed release (DR/EC) 81 mg PO HS Patient Comments: pt states takes all meds at night atorvastatin 40 mg tablet 40 mg PO HS Patient Comments: pt states takes all meds at night clopidogrel 75 mg tablet 75 mg PO HS Patient Comments: pt states takes all meds at night Tradjenta 5 mg tablet 5 mg PO HS Patient Comments: pt states takes all meds at night duloxetine [Cymbalta] 30 mg capsule,delayed release(DR/EC) 30 mg PO BID B complex-vitamin C-folic acid 0.8 mg tablet 1 tab PO QDAY Patient Comments: renavite 60/300-6-8 ascorbate calcium (vitamin C) 500 mg tablet 1 g PO HS Patient Comments: pt states takes all meds at night valsartan 40 mg Tablet 40 mg PO QDAY PRN (Reason: SBP >140) Qty: 30 3RF meclizine 25 mg tablet 25 mg PO PRN PRN (Reason: dizziness) All Day Allergy (cetirizine) 10 mg capsule 10 mg PO QDAY sevelamer carbonate [Renvela] 800 mg tablet 800 mg PO TID Rx Instructions: must administer with a meal/food metoclopramide HCl [Reglan] 10 mg tablet 10 mg PO Q4H PRN (Reason: nausea) pantoprazole 40 mg tablet,delayed release (DR/EC) 40 mg PO HS alprazolam 1 mg tablet 1 mg PO PRN PRN (Reason: anxiety) lidocaine 5 % adhesive patch,medicated 1 patch topical QDAY Qty: 15 0RF Rx Instructions: leave on most painful area for up to 12 hrs Referrals: [facility] [Primary Care Provider] - In 1 week Problem List Clinical Impression: Poorly-controlled hypertension, Acute dehydration, Metabolic acidosis, Renal failure, Type 2 diabetes mellitus Patient/Caregiver Discharge Instructions Print Language: Burundian Stand Alone Forms: Lou Award Info., Patient Portal Info Letter
--- NOTE | 2025-05-27 20:44 | EKG_ITS ---
[facility] Test Date: 2025-05-27 Pat Name: KAREN BARNES Department: Room: - Gender: Female Ditch [employer]er: : 1960 Requested By: Dong Burdick Order Number: [id number] Reading MD: Dong Burdick Measurements Intervals [place] Rate: 76 P: 66 SD: 174 QRS: -23 QRSD: 101 T: 33 QT: 397 QTc: 448 Interpretive Statements SINUS RHYTHM LEFT VENTRICULAR HYPERTROPHY AND ST-T CHANGE [VOLTAGE CRITERIA PLUS ST/T ABNORMALITY] POSSIBLE ANTERIOR MYOCARDIAL INFARCTION , PROBABLY OLD [30 ms Q WAVE IN V3/V4, OR R < 0.2 mV IN V4] Compared to ECG 03/13/2025 11:36:26 Myocardial infarct finding now present ST (T wave) deviation still present /store/S0/[id number].pdf
[2025-05-27] MEDS: ONDANSETRON INJ 2 MG/ML INJ 2 ML 4 MG IVP (20:56)
[2025-05-27] MEDS: LABETALOL INJ 5 MG/ML VIAL 20 ML 40 MG IVP (20:57)
[2025-05-27 21:08] LABS: Basophils # (Auto) 0.1 Thou/mm3 (0.0-0.2); Basophils % (Auto) 1 % (0-2.5); Eosinophils # (Auto) 0.2 Thou/mm3 (0.0-0.5); Eosinophils % (Auto) 1 % (0-10); Hematocrit 46.4 % (36.0-46.0); Hemoglobin 14.8 g/dL (12.0-16.0); Immature Granulocytes Auto 0.12 Thou/mm3 (0.00-0.00); Lymphocytes # (Auto) 2.1 Thou/mm3 (1.0-4.8); Lymphocytes % (Auto) 13 % (10-50); Mean Corpuscular HGB Conc 31.9 g/dl (31.0-37.0); Mean Corpuscular Hemoglobin 29.5 pg (25.0-35.0); Mean Corpuscular Volume 93 fL (80-100); Monocytes # (Auto) 0.5 Thou/mm3 (0.0-0.8); Monocytes % (Auto) 3 % (0-12); Neutrophils # (Auto) 13.2 Thou/mm3 (1.8-7.7); Neutrophils % (Auto) 81 % (37-80); Nucleated Red Blood Cell # 0.00 Thou/mm3 (0.00-0.00); Nucleated Red Blood Cell % 0 /100 WBC (0); Platelet Count 226 Thou/mm3 (140-440); RDW Standard Deviation 55.0 fL (36.4-46.3); Red Blood Count 5.01 Miln/mm3 (4.00-5.20); White Blood Count 16.3 Thou/mm3 (3.6-11.0)
[2025-05-27 21:26] LABS: Alanine Aminotransferase 20 U/L (10-49); Albumin, Serum 4.9 gm/dL (3.4-4.8); Albumin/Globulin Ratio 1.8 (1.2-2.2); Alkaline Phosphatase 131 U/L (46-116); Anion Gap 20 (7-16); Aspartate Amino Transferase 23 U/L (0-34); BUN/Creatinine Ratio 10 Ratio (12-20); Bilirubin,Total 0.3 mg/dL (0.3-1.2); Blood Urea Nitrogen 42 mg/dL (9-23); Calcium 10.3 mg/dL (8.3-10.6); Calcium (Corrected) 10.3 mg/dL (8.5-10.1); Carbon Dioxide 16.3 mMol/L (20.0-31.0); Chloride 104 mMol/L (98-107); Creatinine (Component) 4.4 mg/dL (0.6-1.3); Estimated Creatinine Clearance 12.9 mL/min (>60); Globulin 2.8 gm/dL (2.3-3.5); Glucose 250 mg/dL (74-106); Lipase 47 U/L (12-53); Osmolality,Calculated 297 (275-295); Potassium 4.7 mMol/L (3.4-5.1); Sodium 140 mMol/L (136-145); Total Protein 7.7 gm/dL (5.7-8.2); Troponin I < 0.020 ng/mL (0.0-0.045); eGFR 11 See Note
[2025-05-27] MEDS: hydrALAZINE INJ 20 MG/ML VIAL IVP (21:49)
--- NOTE | 2025-05-27 21:51 | XR_ITS ---
Examination: CT abdomen with intravenous contrast CT pelvis with intravenous contrast 2-D coronal reconstructions 2-D sagittal reconstructions Date and time of exam:May 27, 2025, 11:22 PM Indications: Abdominal pain with high blood pressure today Comparison: January 08, 2025. CTDI: vol (mGy) 8.98 DLP: (mGycm) 500 Technique: Multiple axial sections of the abdomen and pelvis have been obtained. 64 slice high-resolution scanner used. 3 mm axial sections have been obtained, post intravenous injection 60 cc Isovue-370 2-D sagittal, coronal reconstructions obtained. Low dose protocols were performed. One or more of the following dose reduction techniques were used; automated exposure control, adjustment of the mA and/or KV according to patient size, use of iterative reconstruction technique. Findings: Mild enlargement cardiac contour No focal liver or splenic lesion Absent gallbladder No pancreatic or adrenal mass Perinephric stranding Numerous bilateral renal calculi ranging in size from 1 to 8 mm Significant renal scar formation No hydronephrosis or ureteral calculi Aortic calcification no aneurysmal dilatation Normal appendix The entire colon shows wall thickening and hyperemia There is considerable patient motion Urinary bladder intact Prominent osteopenia Impression: Perinephric stranding, consider urinary tract infection Bilateral nonobstructing renal calculi Significant bilateral renal scar formation, no hydronephrosis or ureteral calculi Normal appendix Diffuse moderate nonspecific colitis pattern, differential would include Crohn's disease, ulcerative colitis No bowel obstruction
[2025-05-27] MEDS: SODIUM CHLORIDE 0.9% 1000 ML 1,000 ML 999 ML IV (21:58)
[2025-05-27 22:10] LABS: Collection Type, Urine Catheter
[2025-05-27 22:18] LABS: Bilirubin,Urine Negative (Negative); Blood,Urine Trace (Negative); Clarity,Urine Clear (Clear/Hazy); Color,Urine Colorless (Lt Yel-Yel); Culture Indicated,Urine Not Indicated; Glucose, Urine 3+ (Negative); Ketones,Urine 1+ (Negative); Leukocyte Esterase,Urine Negative (Negative); Nitrite,Urine Negative (Negative); PH,Urine 8.0 (5.0-7.0); Protein,Urine 2+ (Neg - Trace); RBC,Urine 3 /hpf (0-3); Specific Gravity,Urine 1.011 (1.001-1.035); Squamous Epithelial Cell,Urine < 1 /hpf (0-5); Urobilinogen,Urine Negative mg/dL (0.0-1.0); WBC,Urine 5 /hpf (0-5)
[2025-05-27 23:01] LABS: Base Excess, Venous -7 (-3-3); Lactate (Lactic Acid) 1.8 mMol/L (0.4-2.0); O2 Saturation, Venous 89 % (96-97); PCO2, Venous 24 mmHg (36-56); PO2, Venous 64 mmHg (15-58); pH, Venous 7.41 (7.33-7.66)
[2025-05-27 23:06] LABS: Beta Hydroxybutyrate 1.2 mmol/L (<0.6)
[2025-05-27] MEDS: METOCLOPRAMIDE INJ 5 MG/ML VIAL 2 ML 10 MG IVP (23:42)
[2025-05-28] VITALS (30 sets, daily range): BP systolic 95–210; BP diastolic 64–119; PULSE 87–109; RESP 14–23; TEMP 36–37.1; O2SAT 95–99; BMI 25.9
[2025-05-28 00:11] LABS: Anion Gap 18 (7-16); BUN/Creatinine Ratio 10 Ratio (12-20); Blood Urea Nitrogen 41 mg/dL (9-23); Calcium 9.9 mg/dL (8.3-10.6); Chloride 107 mMol/L (98-107); Creatinine (Component) 4.3 mg/dL (0.6-1.3); Estimated Creatinine Clearance 13.2 mL/min (>60); Glucose 292 mg/dL (74-106); Osmolality,Calculated 300 (275-295); Potassium 4.8 mMol/L (3.4-5.1); Sodium 140 mMol/L (136-145); eGFR 11 See Note
[2025-05-28 00:28] LABS: Carbon Dioxide 15.1 mMol/L (20.0-31.0)
[2025-05-28] MEDS: hydrALAZINE INJ 20 MG/ML VIAL IVP (00:44)
[2025-05-28] MEDS: METOCLOPRAMIDE INJ 5 MG/ML VIAL 2 ML 10 MG IVP ×5 (01:38→21:12)
--- NOTE | 2025-05-28 02:00 | PD.RESHP ---
Documentation for date of: 05/28/25 [facility] History of Present Illness History of present illness: Patient is a 64-year-old female with past medical significant for hypertension, ESRD on on hemodialysis Monday/Monday/Monday with Dr Awad, CAD s/p CABG 2023, third-degree AV block s/p pacemaker placement (10/22, Dr Mehta), recurrent UTIs, type 2 diabetes mellitus, press syndrome who presented to the ED on 05/19/2025 with chief complaint of nausea and high blood pressure Patient reports 1 day of nausea and vomiting. Patient reported symptoms have been occurring since she woke up in the morning. Unable to tolerate oral intake and mostly dry heaves when she tried to vomit. Per daughter at bedside she measured her blood pressure this morning and systolic was in the 240s. Per daughter at bedside, she reported patient is compliant with her medication and dialysis. Patient endorses lightheadedness, dizziness, severe nausea with dry heaves. Patient denies headache, blurry vision, shortness of breath, chest pain, abdominal pain, fever, chills, recent sick contact ED Course: - Initial vitals were BP 216/132, pulse 81, respiratory 16, temperature 97.3, O2 sat 100 on room air - Labs significant for WBC 16.3, bicarb 16.3, anion gap 20, bun 42, creatinine 4.4, eGFR 11, glucose 250. - VBG pH 7.41 pCO2 24, pO2 60. Alkaline phosphatase 131, albumin 4.9, troponin negative. - UA urine pH 8, urine protein 2+, glucose 3+, ketones 1+ - Imaging included abdominal CT/pelvis that showed perinephric stranding, bilateral nonobstructive renal calculi, diffuse moderate nonspecific colitis pattern. EKG sinus rhythm with a rate of [address] T wave changes - In the ED, patient was given 4 mg, labetalol 40 mg, hydralazine 20 mg, 1 L NS fluid - Patient was admitted for intractable nausea vomiting and hypertensive emergency evaluation and management. Review of Systems Review of systems otherwise negative except what is mentioned above. Past Medical History: Mentioned above ESRD on HD right IJ PermCath M/W/F CAD s/p CABG March 2024 Heart block s/p pacemaker placement September [address] 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 Previously used THC Gummies Lives with . At baseline ambulates with a walker Current Medications: Metoclopramide 10 Mg p.o. every 8 hourly as needed Ondansetron 4 Mg p.o. every 6 hourly as needed Aspirin 81 Mg p.o. daily Atorvastatin 40 Mg p.o. nightly Clopidogrel 75 Mg p.o. nightly Tradjenta 5 Mg p.o. nightly Midodrine 10 Mg p.o. 3 times daily as needed Duloxetine 30 Mg p.o. twice daily Multivitamin Vitamin C 500 Mg p.o. daily Valsartan 40 Mg p.o. daily as needed for SBP >140 Meclizine 25 Mg p.o. as needed Allergies: No known drug allergies Exam Vital Signs Temp Pulse Resp BP Pulse Ox 97.3 F 92 16 157/98 H 97 05/28/25 00:00 05/28/25 01:30 05/28/25 01:30 05/28/25 01:30 05/28/25 01:30 Narrative Exam General: Alert, no acute distress.Conversational and non-toxic appearing. Skin: Warm, dry, intact. No rash or ecchymoses. Head: Normocephalic, atraumatic. Eye: Normal conjunctiva, PERRL. Throat: Oral mucosa moist. No obvious lesions in oropharynx. Cardiovascular: Regular rate and rhythm, no murmur, +S1/S2. Respiratory: Lungs are clear to auscultation, respirations unlabored, no crackles, no wheezing. Gastrointestinal: Soft, nontender, non-distended. No guarding or rebound tenderness. Extremities: No edema, no cyanosis, no clubbing. Neuro: Alert and oriented x3.No focal deficits observed. Conversant, moving all extremities. No overt cerebellar signs/incoordination. Psychiatric: Cooperative, appropriate affect Results: Labs 05/27/25 20:55 05/27/25 22:45 Labs: Short CBC 05/27/25 Range/Units 20:55 WBC 16.3 H (3.6-11.0) Thou/mm3 Hgb 14.8 (12.0-16.0) g/dL Hct 46.4 H (36.0-46.0) % Plt Count 226 (140-440) Thou/mm3 BMP 05/27/25 05/27/25 20:55 22:45 Sodium 140 140 Potassium 4.7 4.8 Chloride 104 107 Carbon Dioxide 16.3 L 15.1 L BUN 42 H 41 H Creatinine 4.4 H* 4.3 H* Glucose 250 H 292 H Calcium 10.3 9.9 Cardiac Enzymes 05/27/25 Range/Units 20:55 Troponin I < 0.020 (0.0-0.045) ng/mL Liver Function 05/27/25 Range/Units 20:55 Total Bilirubin 0.3 (0.3-1.2) mg/dL AST 23 (0-34) U/L ALT 20 (10-49) U/L Alkaline Phosphatase 131 H (46-116) U/L Albumin 4.9 H (3.4-4.8) gm/dL Urine 05/27/25 Range/Units 21:30 Urine Color Colorless A (Lt Yel-Yel) Urine Clarity Clear (Clear/Hazy) Urine pH 8.0 H (5.0-7.0) Ur Specific Sims 1.011 (1.001-1.035) Urine Protein 2+ A (Neg - Trace) Urine Glucose (UA) 3+ A (Negative) ABG Interpretation ABG results: 05/27/25 22:49 VBG pH 7.41 VBG pCO2 24 L VBG pO2 64 H VBG Base Excess -7 L Quality Measures Quality Measures none Medications Home Medications and Allergies Home Medications ?Medication ?Instructions ?Recorded ?Confirmed ?Type aspirin 81 mg tablet,delayed 81 mg PO HS 11/28/24 05/28/25 History release (Adult Low Dose Aspirin) atorvastatin 40 mg tablet 40 mg PO HS 11/28/24 05/28/25 History clopidogrel 75 mg tablet 75 mg PO HS 11/28/24 05/28/25 History duloxetine 30 mg capsule,delayed 30 mg PO BID 11/28/24 05/28/25 History release (Cymbalta) linagliptin 5 mg tablet (Tradjenta) 5 mg PO HS 11/28/24 05/28/25 History ascorbate calcium (vitamin C) 500 1 g PO HS 12/01/24 05/28/25 History mg tablet vitamin B complex-vitamin C-folic 1 tab PO QDAY 12/01/24 05/28/25 History acid 0.8 mg tablet meclizine 25 mg tablet 25 mg PO PRN PRN dizziness 01/08/25 05/28/25 History alprazolam 1 mg tablet 1 mg PO PRN PRN anxiety 02/19/25 05/28/25 History cetirizine 10 mg capsule (All Day 10 mg PO QDAY 02/19/25 05/28/25 History Allergy (cetirizine)) metoclopramide HCl 10 mg tablet 10 mg PO Q4H PRN nausea 02/19/25 05/28/25 History (Reglan) pantoprazole 40 mg tablet,delayed 40 mg PO HS 02/19/25 05/28/25 History release sevelamer carbonate 800 mg tablet 800 mg PO TID 02/19/25 05/28/25 History (Renvela) docusate sodium 100 mg capsule 100 mg PO BID 05/28/25 05/28/25 History labetalol 100 mg tablet 100 mg PO DAILY PRN blood pressure 05/28/25 05/28/25 History levetiracetam 500 mg 1,000 mg PO .PM 05/28/25 05/28/25 History tablet,extended release 24 hr midodrine 5 mg tablet 10 mg PO TID PRN low blood pressure 05/28/25 05/28/25 History nitrofurantoin 05/28/25 History monohydrate/macrocrystals 100 mg capsule ropinirole 0.25 mg tablet 0.25 mg PO HS 05/28/25 05/28/25 History Allergies Allergy/AdvReac Type Severity Reaction Status Date / Time No Known Allergies Allergy Verified 02/22/25 15:54 Visit Medications Aspirin (Aspirin Ec 81 Mg Tabec) 81 mg PO HS ALEX Stop: 06/27/25 20:59 Atorvastatin Calcium (Atorvastatin Calcium 20 Mg Tablet) 40 mg PO HS ALEX Stop: 06/27/25 20:59 Clopidogrel Bisulfate (Clopidogrel Bisulfate 75 Mg Tablet) 75 mg PO HS ALEX Stop: 06/27/25 20:59 Dextrose (Dextrose 50%-Water Inj 50 Ml Syringe) 25 ml IV Q15MIN PRN PRN Reason: BG 50-70 responsive npo pt Stop: 06/27/25 01:52 Dextrose (Dextrose 50%-Water Inj 50 Ml Syringe) 50 ml IV Q15MIN PRN PRN Reason: BG <50 OR BG <70 & pt unresponsive Stop: 06/27/25 01:52 Duloxetine HCl (Duloxetine Hcl 30 Mg Capsule) 30 mg PO BID ALEX Stop: 06/27/25 08:59 Glucagon (Glucagon Inj 1 Mg Vial) 1 mg IM Q15MIN PRN PRN Reason: BG <70, and no IV access Hydralazine HCl (Hydralazine Inj 20 Mg/Ml Vial) 10 mg IVP Q4HR PRN PRN Reason: SBP>180 Stop: 06/27/25 01:54 Insulin Human Lispro (Insulin Lispro (Admelog) 1 Unit/0.01 Ml Unit) 0 unit SC Q6H ALEX; Protocol Stop: 06/27/25 01:59 Labetalol HCl (Labetalol Inj 5 Mg/Ml Vial 20 Ml) 10 mg IVP Q1H PRN PRN Reason: BP>160/100 HR>80 Stop: 06/27/25 01:55 Levetiracetam (Levetiracetam Inj 100 Mg/Ml Vial 5ml) 500 mg IVP Q12HR [facility] Stop: 06/27/25 08:59 Pantoprazole Sodium (Pantoprazole 40 Mg Tablet) 40 mg PO HS ALEX Stop: 06/27/25 20:59 Sevelamer Carbonate (Sevelamer Carbonate 800 Mg Tablet) 800 mg PO TIDWM [facility] Stop: 06/27/25 07:59 Valsartan (Valsartan 40 Mg Tablet) 40 mg PO QDAY PRN PRN Reason: SBP >140 Stop: 06/27/25 01:51 Discontinued Medications Hydralazine HCl (Hydralazine Inj 20 Mg/Ml Vial) 20 mg IVP X1 ONE Stop: 05/27/25 21:37 Last Admin: 05/27/25 21:49 Dose: 20 mg Hydralazine HCl (Hydralazine Inj 20 Mg/Ml Vial) 20 mg IVP X1 ONE Stop: 05/28/25 00:33 Last Admin: 05/28/25 00:44 Dose: 20 mg Sodium Chloride (Ns) 1,000 mls @ 999 mls/hr IV .Q1H1M ONE Stop: 05/27/25 22:51 Last Admin: 05/27/25 21:58 Dose: 999 mls/hr Labetalol HCl (Labetalol Inj 5 Mg/Ml Vial 20 Ml) 40 mg IVP X1 ONE Stop: 05/27/25 20:44 Last Admin: 05/27/25 20:57 Dose: 40 mg Metoclopramide HCl (Metoclopramide Inj 5 Mg/Ml Vial 2 Ml) 10 mg IVP X1 ONE; Protocol Stop: 05/27/25 23:06 Last Admin: 05/27/25 23:42 Dose: 10 mg Metoclopramide HCl (Metoclopramide Inj 5 Mg/Ml Vial 2 Ml) 10 mg IVP X1 ONE; Protocol Stop: 05/28/25 01:09 Ondansetron HCl (Ondansetron Inj 2 Mg/Ml Inj 2 Ml) 4 mg IVP X1 ONE; Protocol Stop: 05/27/25 20:44 Last Admin: 05/27/25 20:56 Dose: 4 mg Assessment & Plan Plan Patient is a 64-year-old female with past medical significant for hypertension, ESRD on on hemodialysis Monday/Monday/Monday with Dr Awad, CAD s/p CABG 2023, third-degree AV block s/p pacemaker placement (10/22, Dr Mehta), recurrent UTIs, type 2 diabetes mellitus, press syndrome who presented to the ED on 05/19/2025 with chief complaint of nausea and high blood pressure. Admitted for evaluation of mild hypertensive emergency. #Intractable nausea/vomiting in setting of #Hypertensive emergency #Primary hypertension #History of PRES syndrome Patient presented with 1 day of nausea vomiting, dizziness with blood pressure reading 220/115. Her symptoms likely secondary to hypertensive emergency and history of Press syndrome given the fact hypertensive emergency can increase intracranial pressure, affecting brain vomiting center causing nausea vomiting. Patient medicated his valsartan 40 mg. In the ED patient received 4 mg for nausea, labetalol 40 mg and hydralazine 20 mg with noted blood pressure improvement to 152/92. - Started Reglan 10 mg for nausea /vomiting - BP control with hydralazine 10 mg and labetalol 10 mg as needed - Resume home valsartan 40 mg - Blood culture ordered, - Follow-up with daily labs #[id number] type 2 diabetes mellitus #Anion gap metabolic acidosis #Respiratory alkalosis #Diabetic gastroparesis On admission glucose 250 increased to 292 last A1c 5.6% on 02/20/25. Concern for possible DKA hence VBG ordered and showed VBG 7.41, pCO2 24, bicarb 16.3 anion gap of 20. Received 1 L of NS and anion gap improved to 18. Patient has anion gap metabolic acidosis with adequate respiratory compensation. Beta hydroxybutyrate 1.2 -Repeat VBG ordered -Insulin sliding scale Q6 hourly as needed. -Metoclopramide 10 Mg IV every 8 hourly as needed -Hypoglycemia protocol #Leukocytosis, likely reactive #History of recurrent UTI Likely reactive to poor intake, nausea, and vomiting. WBC is 16.3 and lactic acid 1.8 the patient is afebrile, not tachycardic, with no recent sick contacts or clear source of infection. Denies fever, chills, or UTI-like symptoms. Urinalysis was negative for a UTI. No obvious source of infection identified, so there is no indication for antibiotics at this time. -Blood culture ordered, pending -Urine culture ordered, -Follow-up with daily CBCs #PRES syndrome #Hx of seizures Patient diagnosed with posterior reversible encephalopathy syndrome last admission and was started on Keppra. - Patient follows up regularly with neurologist Dr. Chan - Resume home Keppra 500mg BID #[facility] On admission bun 42, creatinine 4.4, eGFR 11, bun/cr 10 - Resume home sevelamer 800mg TIDWM - Dr Awad consulted, recommendation appreciated - For hemodialysis as per nephrology recommendations #CAD s/p CABG #Heart block s/p pacemaker insertion [September 2024] - Resumed home aspirin 81mg - Resumed home Plavix 75 #Depression - Continue duloxetine 30 mg p.o. twice daily #Incidental findings of colitis on CT Patient reported bowel movement. While in the ED patient has had 4 bowel for regular bowel movement. -Continue to monitor bowel movement changes Hospital management: Lines: peripheral IV Diet: As tolerated GI prophylaxis: Protonix 40 mg DVT prophylaxis: SCDs Disposition: tele for management of hypertensive emergency CODE STATUS: Full code Patient seen and assessed under supervision of attending physician Dr.Alhalaibeh Katarina Rae MD PGY-1, Internal Medicine Please note: this document was transcribed using voice recognition technology; minor inaccuracies may be present. Attending Provider Attestation/Addendum After examination of the patient and review of the clinical data I feel that this patient needs admission to the hospital for further treatment/evaluation. Plan of care discussed with patient and is in agreement. I Jocelyn Wolf MD, attest that I was physically present for [place] portions of evaluation, and examined patient, labs and imagings and plan of care were discussed with IM residents team, and I agree with the findings and plans documented above.
[2025-05-28] MEDS: INSULIN LISPRO (AdmeLOG) 1 UNIT/0.01 ML UNIT SC ×2 (02:46→17:27)
--- NOTE | 2025-05-28 02:46 | PC.NURSE ---
WE HAD DOWN TIME FROM [phone].
[2025-05-28 02:52] LABS: Base Excess, Venous -10 (-3-3); O2 Saturation, Venous 94 % (96-97); PCO2, Venous 14 mmHg (36-56); PO2, Venous 66 mmHg (15-58); pH, Venous 7.46 (7.33-7.66)
[2025-05-28] MEDS: hydrALAZINE INJ 20 MG/ML VIAL 10 MG IVP (04:26)
[2025-05-28] MEDS: SCOPOLAMINE 1 MG TDSY TOP (05:04)
--- NOTE | 2025-05-28 09:15 | PC.SS ---
Patient Edita Carmona is a 64 Year old female admitted for Intractable Nausea and Vomiting. SS contacted patient's daughter Carmen Angulo who was able to verify demographic information and discharge plan. Patient lives at home with family. Prior to admission patient did not utilize any source of DME to assist with ambulation. Patient was able to complete all ADL's independently. Choice of pharmacy is [facility]. Patient's PCP is [facility]. Family will provide transportation. Discharge plan: Home Next of kin: Carmen Brewster PCP: [facility]
[2025-05-28 09:31] LABS: Basophils # (Auto) 0.0 Thou/mm3 (0.0-0.2); Basophils % (Auto) 0 % (0-2.5); Eosinophils # (Auto) 0.0 Thou/mm3 (0.0-0.5); Eosinophils % (Auto) 0 % (0-10); Hematocrit 42.6 % (36.0-46.0); Hemoglobin 13.8 g/dL (12.0-16.0); Immature Granulocytes Auto 0.07 Thou/mm3 (0.00-0.00); Lactate (Lactic Acid) 1.7 mMol/L (0.4-2.0); Lymphocytes # (Auto) 0.8 Thou/mm3 (1.0-4.8); Lymphocytes % (Auto) 7 % (10-50); Mean Corpuscular HGB Conc 32.4 g/dl (31.0-37.0); Mean Corpuscular Hemoglobin 29.6 pg (25.0-35.0); Mean Corpuscular Volume 91 fL (80-100); Monocytes # (Auto) 0.2 Thou/mm3 (0.0-0.8); Monocytes % (Auto) 2 % (0-12); Neutrophils # (Auto) 10.7 Thou/mm3 (1.8-7.7); Neutrophils % (Auto) 91 % (37-80); Nucleated Red Blood Cell # 0.00 Thou/mm3 (0.00-0.00); Nucleated Red Blood Cell % 0 /100 WBC (0); Platelet Count 233 Thou/mm3 (140-440); RDW Standard Deviation 54.7 fL (36.4-46.3); Red Blood Count 4.67 Miln/mm3 (4.00-5.20); White Blood Count 11.8 Thou/mm3 (3.6-11.0)
[2025-05-28 10:12] LABS: Alanine Aminotransferase 16 U/L (10-49); Albumin, Serum 4.8 gm/dL (3.4-4.8); Albumin/Globulin Ratio 1.8 (1.2-2.2); Alkaline Phosphatase 124 U/L (46-116); Anion Gap 18 (7-16); Aspartate Amino Transferase 17 U/L (0-34); BUN/Creatinine Ratio 9 Ratio (12-20); Bilirubin,Total 0.3 mg/dL (0.3-1.2); Blood Urea Nitrogen 29 mg/dL (9-23); Calcium 10.4 mg/dL (8.3-10.6); Calcium (Corrected) 10.4 mg/dL (8.5-10.1); Carbon Dioxide 20.4 mMol/L (20.0-31.0); Chloride 103 mMol/L (98-107); Creatinine (Component) 3.3 mg/dL (0.6-1.3); Estimated Creatinine Clearance 16.6 mL/min (>60); Globulin 2.6 gm/dL (2.3-3.5); Glucose 138 mg/dL (74-106); Magnesium 2.1 mg/dL (1.6-2.6); Osmolality,Calculated 289 (275-295); Potassium 3.4 mMol/L (3.4-5.1); Sodium 141 mMol/L (136-145); Total Protein 7.4 gm/dL (5.7-8.2); eGFR 15 See Note
--- NOTE | 2025-05-28 10:32 | ESPR_ITS ---
<Statement entered by Eric Kaur MD - 05/28/25 15:42> I saw and examined patient personally and supervised PGY 1 resident, Dr. Yates with formulating a management plan. I agree with the documentation with the exceptions as listed below. Patient is a 64-year-old female with past medical significant for hypertension, ESRD on on hemodialysis Monday/Monday/Monday with Dr Awad, CAD s/p CABG 2023, third-degree AV block s/p pacemaker placement (10/22, Dr Mehta), recurrent UTIs, type 2 diabetes mellitus, press syndrome who presented to the ED on 05/19/2025 with chief complaint of nausea and high blood pressure. Admitted for evaluation of hypertensive urgency. Problem list: 1. Hypertensive urgency?resolving 2. Intractable nausea and vomiting secondary to gastroparesis 3. History of press syndrome 4. Anion gap metabolic acidosis secondary to starvation ketoacidosis 5. History of seizure disorder 6. CAD s/p CABG 7. Third heart block s/p pacemaker insertion [September 2024] 8. ESRD on HD M/W/F Patient presented with hypertensive urgency initially with lood pressure of 220/115. After labetalol 40 mg IV x 1 and hydralazine 20 mg IV x 1 blood pressure improved to 151/89. We resumed home labetalol 50 mg p.o. daily as needed for SBP >180. With regards to patient's metabolic acidosis, etiology likely secondary to starvation ketoacidosis as well as ESRD. We will monitor bicarbonate levels after dialysis, if <20 will start on Bicitra. For patient's intractable nausea and vomiting, we scheduled metoclopramide 10 mg IV Q6 hourly and Zofran 4 mg IV every 6 hourly as needed. Will recheck an EKG tomorrow to monitor QT. Plan of care discussed with Attending Dr. Shi Kaur MD PGY 2 Disclaimer: This note was dictated by speech recognition. Minor errors in body welder may be present due to voice recognition software. Documentation for date of: 05/28/25 Subjective Subjective Interval history: Patient examined bedside during HDS. She is a poor historian and states she has had large amounts of vomitus with coffee ground coloring. However the vomit bag was only full of 1-2 mL of clear fluid, and nurse confirmed no vomitus seen while doing hemodialysis. She still has nasuea that is improved with reglan. Repeat VBG showed normal pH, repeat lacitc acids were normal and POC glucose qas 150s so her 10 units of insulin were held before hemodialysis. Exam Vital Signs Temp Pulse Resp BP Pulse Ox O2 Del Method 97.7 F 89 14 99/67 95 Room Air 05/28/25 08:00 05/28/25 10:30 05/28/25 08:00 05/28/25 10:30 05/28/25 08:00 05/28/25 08:00 Narrative Exam GENERAL APPEARANCE: AOx3. NAD, activity normal for age, well developed/ well nourished, no cyanosis, pallor, or diaphoresis. HEENT: Normocephalic atraumatic, no facial trauma, neck is supple. Lids/conjunctiva normal. Mucous membranes moist, nares normal, lips/teeth normal uvula midline without oral pharyngeal erythema, exudate or swelling TMs normal bilaterally. No lymphangitis/lymphedema. CARDIAC: Regular rate and rhythm, S1+S2 heard. No murmurs, rubs, or gallops noted RESPIRATORY: respiratory effort normal, speaks in full sentences, no tripod position, no accessory muscle use. Lungs clear to auscultation without rhonchi, wheezes, rales ABDOMINAL: NBS. Soft, ND/NT. No evidence of fluid wave. No pulsatile masses on exam, rebound tenderness, Miller sign or pain over Mcburney's point. MUSCLES/EXTREMITIES: No abnormal range of motion, no swelling. DERM: Warm, pink and dry. No rashes, dermatoses, petechiae or lesions. NEUROLOGICAL: Speech is clear and appropriate. Normal level of consciousness. Gait and coordination are normal. 5/5 strength in all extremities. PSYCH: Normal mood and affect. Judgement/competence is appropriate Objective Labs 05/29/25 04:51 05/29/25 04:51 Labs: Laboratory Results - last 24 hr 05/27/25 05/27/25 05/27/25 20:55 21:30 22:45 WBC 16.3 H RBC 5.01 Hgb 14.8 Hct 46.4 H MCV 93 MCH 29.5 MCHC 31.9 RDW Std Deviation 55.0 H Plt Count 226 Neut % (Auto) 81 H Lymph % (Auto) 13 [place] % (Auto) 3 Eos % (Auto) 1 Baso % (Auto) 1 Neut # (Auto) 13.2 H Lymph # (Auto) 2.1 [place] # (Auto) 0.5 Eos # (Auto) 0.2 Baso # (Auto) 0.1 Immature Gran # (Auto) 0.12 H Absolute Nucleated RBC 0.00 Immature Gran % 1 H Nucleated RBC % 0 VBG pH VBG pCO2 VBG pO2 VBG O2 Sat (Arpit) VBG Base Excess Sodium 140 140 Potassium 4.7 4.8 Chloride 104 107 Carbon Dioxide 16.3 L 15.1 L Anion Gap 20 H 18 H BUN 42 H 41 H Creatinine 4.4 H* 4.3 H* Estim Creat Clear Calc 12.9 L 13.2 L eGFR 11 L* 11 L* BUN/Creatinine Ratio 10 L 10 L Glucose 250 H 292 H Calculated Osmolality 297 H 300 H Lactic Acid Calcium 10.3 9.9 Corrected Calcium 10.3 H Magnesium Total Bilirubin 0.3 AST 23 ALT 20 Alkaline Phosphatase 131 H Troponin I < 0.020 Total Protein 7.7 Albumin 4.9 H Globulin 2.8 Albumin/Globulin Ratio 1.8 Lipase 47 Beta-Hydroxybutyrate/Acetoacetate Ur Collection Type Catheter Urine Color Colorless A Urine Clarity Clear Urine pH 8.0 H Ur Specific [place] 1.011 Urine Protein 2+ A Urine Glucose (UA) 3+ A Urine Ketones 1+ A Urine Blood Trace Urine Nitrite Negative Urine Bilirubin Negative Urine Urobilinogen (Auto) Negative Ur Leukocyte Esterase Negative Urine RBC 3 Urine WBC 5 Ur Squamous Epith Cells < 1 Urine Bacteria None Ur Culture Indicated? Not Indicated 05/27/25 05/28/25 05/28/25 22:49 02:35 09:00 WBC 11.8 H RBC 4.67 Hgb 13.8 Hct 42.6 MCV 91 MCH 29.6 MCHC 32.4 RDW Std Deviation 54.7 H Plt Count 233 Neut % (Auto) 91 H Lymph % (Auto) 7 L [place] % (Auto) 2 Eos % (Auto) 0 Baso % (Auto) 0 Neut # (Auto) 10.7 H Lymph # (Auto) 0.8 L [place] # (Auto) 0.2 Eos # (Auto) 0.0 Baso # (Auto) 0.0 Immature Gran # (Auto) 0.07 H Absolute Nucleated RBC 0.00 Immature Gran % 1 H Nucleated RBC % 0 VBG pH 7.41 7.46 VBG pCO2 24 L 14 L D VBG pO2 64 H 66 H VBG O2 Sat (Arpit) 89 L 94 L VBG Base Excess -7 L -10 L Sodium 141 Potassium 3.4 D Chloride 103 Carbon Dioxide 20.4 Anion Gap 18 H BUN 29 H Creatinine 3.3 H D Estim Creat Clear Calc 16.6 L eGFR 15 L BUN/Creatinine Ratio 9 L Glucose 138 H D Calculated Osmolality 289 Lactic Acid 1.8 1.7 Calcium 10.4 Corrected Calcium 10.4 H Magnesium 2.1 Total Bilirubin 0.3 AST 17 ALT 16 Alkaline Phosphatase 124 H Troponin I Total Protein 7.4 Albumin 4.8 Globulin 2.6 Albumin/Globulin Ratio 1.8 Lipase Beta-Hydroxybutyrate/Acetoacetate 1.2 H Ur Collection Type Urine Color Urine Clarity Urine pH Ur Specific [place] Urine Protein Urine Glucose (UA) Urine Ketones Urine Blood Urine Nitrite Urine Bilirubin Urine Urobilinogen (Auto) Ur Leukocyte Esterase Urine RBC Urine WBC Ur Squamous Epith Cells Urine Bacteria Ur Culture Indicated? ABG Interpretation ABG results: 05/27/25 05/28/25 22:49 02:35 VBG pH 7.41 7.46 VBG pCO2 24 L 14 L D VBG pO2 64 H 66 H VBG Base Excess -7 L -10 L Quality Measures Quality Measures none Assessment & Plan Assessment Current Active Medications: Generic Name Dose Route Start Last Admin Trade Name Freq PRN Reason Stop Dose Admin Aspirin 81 mg 05/28/25 21:00 Aspirin Ec 81 Mg Tabec PO 06/27/25 20:59 HS ALEX Atorvastatin Calcium 40 mg 05/28/25 21:00 Atorvastatin Calcium 20 Mg Tablet PO 06/27/25 20:59 HS ALEX Clopidogrel Bisulfate 75 mg 05/28/25 21:00 Clopidogrel Bisulfate 75 Mg Tablet PO 06/27/25 20:59 HS ALEX Dextrose 25 ml 05/28/25 01:53 Dextrose 50%-Water Inj 50 Ml Syringe IV 06/27/25 01:52 Q15MIN PRN BG 50-70 responsive npo pt Dextrose 50 ml 05/28/25 01:53 Dextrose 50%-Water Inj 50 Ml Syringe IV 06/27/25 01:52 Q15MIN PRN BG <50 OR BG <70 & pt unresponsive Duloxetine HCl 30 mg 05/28/25 09:00 Duloxetine Hcl 30 Mg Capsule PO 06/27/25 08:59 BID ALEX Glucagon 1 mg 05/28/25 01:53 Glucagon Inj 1 Mg Vial IM Q15MIN PRN BG <70, and no IV access Heparin Sodium (Porcine) 3,300 unit 05/28/25 08:49 Heparin Sod Inj 1000 Unit/Ml Vial 10 Ml INDWELLCAT X1 PRN DIALYSIS Hydralazine HCl 20 mg 05/28/25 06:32 Hydralazine Inj 20 Mg/Ml Vial IVP 06/27/25 01:54 Q4HR PRN SBP>180 Insulin Human Lispro 0 unit 05/28/25 12:00 Insulin Lispro (Admelog) 1 Unit/0.01 Ml Unit SC 06/27/25 11:59 Q6HR ALEX Protocol Labetalol HCl 50 mg 05/28/25 10:01 Labetalol 100 Mg Tablet PO 06/27/25 10:14 QDAY PRN Hypertension Levetiracetam 500 mg 05/28/25 09:00 Levetiracetam Inj 100 Mg/Ml Vial 5ml IVP 06/27/25 08:59 Q12HR [facility] Metoclopramide HCl 10 mg 05/28/25 02:57 05/28/25 10:04 Metoclopramide Inj 5 Mg/Ml Vial 2 Ml IVP 06/27/25 02:56 10 mg Q4HR PRN Administration NAUSEA OR VOMITING Protocol Pantoprazole Sodium 40 mg 05/28/25 21:00 Pantoprazole 40 Mg Tablet PO 06/27/25 20:59 HS [facility] Sevelamer Carbonate 800 mg 05/28/25 08:00 05/28/25 08:50 Sevelamer Carbonate 800 Mg Tablet PO 06/27/25 07:59 Not Given TIDWM ALEX Plan Patient is a 64-year-old female with past medical significant for hypertension, ESRD on on hemodialysis Monday/Monday/Monday with Dr Awad, CAD s/p CABG 2023, third-degree AV block s/p pacemaker placement (10/22, Dr Mehta), recurrent UTIs, type 2 diabetes mellitus, press syndrome who presented to the ED on 05/19/2025 with chief complaint of nausea and high blood pressure. Admitted for evaluation of hypertensive urgency. Today patient underwent HDS. Patient has improved NV very minimal vomitus of clear color 1-2mL. #Intractable nausea/vomiting in setting of #Hypertensive urgency - resolving #Primary hypertension #History of PRES syndrome Patient presented with 1 day of nausea vomiting, dizziness with blood pressure reading 220/115. Her symptoms likely secondary to hypertensive urgency (no signs of end organ damage) and history of Pres syndrome given the fact hypertensive emergency can increase intracranial pressure, affecting brain vomiting center causing nausea vomiting. Patient medicated his valsartan 40 mg. In the ED patient received 4 mg for nausea, labetalol 40 mg and hydralazine 20 mg with noted blood pressure improvement to 152/92. Plan: - Started Reglan 10 mg for nausea /vomiting - BP control with hydralazine 10 mg and labetalol 10 mg as needed - Resume home valsartan 40 mg - Blood culture ordered: Pending - Follow-up with daily labs #Starvation Ketoacidosis #[id number] type 2 diabetes mellitus #Anion gap metabolic acidosis #Respiratory alkalosis #Diabetic gastroparesis On admission glucose 250 increased to 292 last A1c 5.6% on 02/20/25. Concern for possible DKA vs starvation ketoacidosis hence VBG ordered and showed VBG 7.41, pCO2 24, bicarb 16.3 anion gap of 20. Received 1 L of NS and anion gap improved to 18. Patient has anion gap metabolic acidosis with adequate respiratory compensation. Beta hydroxybutyrate 1.2. Most likely starvation ketoacidosis since VBG pH is normal and blood glucose is around 226 now. FUP renal panel after HDS showed Bicarb: 20 therefore no need to start bicitra. Plan: -Insulin sliding scale Q6 hourly as needed. -Metoclopramide 10 Mg IV every 8 hourly as needed -Hypoglycemia protocol #Leukocytosis, likely reactive #History of recurrent UTI Likely reactive to poor intake, nausea, and vomiting. WBC is 16.3 and lactic acid 1.8 the patient is afebrile, not tachycardic, with no recent sick contacts or clear source of infection. Denies fever, chills, or UTI-like symptoms. Urinalysis was negative for a UTI. No obvious source of infection identified, so there is no indication for antibiotics at this time. Plan: -Blood culture ordered, pending -Urine culture ordered, -Follow-up with daily CBCs #PRES syndrome #Hx of seizures Patient diagnosed with posterior reversible encephalopathy syndrome last admission and was started on Keppra. Plan: - Patient follows up regularly with neurologist Dr. Chan - Resume home Keppra 500mg BID #[facility] On [facility] bun 42, creatinine 4.4, eGFR 11, bun/cr 10 Plan: - Resume home sevelamer 800mg TIDWM - Dr Awad consulted, recommendation appreciated - For hemodialysis as per nephrology recommendations #CAD s/p CABG #Heart block s/p pacemaker insertion [September 2024] Plan: - Resumed home aspirin 81mg - Resumed home Plavix 75 #Depression - Continue duloxetine 30 mg p.o. twice daily #Incidental findings of colitis on CT Patient reported bowel movement. While in the ED patient has had 4 bowel for regular bowel movement. -Continue to monitor bowel movement changes Hospital management: Lines: peripheral IV Diet: Carb consistent GI prophylaxis: Protonix 40 mg DVT prophylaxis: SCDs Disposition: tele for management of hypertensive emergency CODE STATUS: Full code Patient seen and assessed under supervision of attending physician Dr. Osullivan, and supervising resident Dr. Natasha Yates MD PGY-1, Internal Medicine Attending Provider Attestation/Addendum I, Lenore Osullivan, , attest that I was physically present for the [place] portions of the service and evaluated the patient with the resident and I reviewed and discussed the case with the resident and agree with the resident's findings and plans of care as documented above Patient seen and eval this a.m. Patient underwent dialysis without issue this morning. Patient continues to complain of nausea and vomiting. is at bedside and states that the patient has not eaten for 24 hours. She is noted to have metabolic acidosis likely secondary to starvation ketoacidosis with an elevated anion gap of 20 and bicarb of 16.3. Beta hydroxybutyrate was also noted to be 1.2. Patient has been states that patient has had similar symptoms in the past when she was initially diagnosed with press syndrome in January. Since then, patient has had difficulty finding her speech with some expressive aphasia. She currently denies any headache, chest pain, shortness of breath, fevers, chills. Suspect that patient has gastroparesis as a cause of her nausea and vomiting. Per daughter on the phone, patient does take Reglan orally. However, will start scheduling IV Reglan as patient is currently unable to tolerate oral intake due to persistent nausea and advance diet as tolerated.
[2025-05-28] MEDS: HEPARIN SOD INJ 1000 UNIT/ML VIAL 10 ML 3300 UNIT INDWELLCAT (10:46)
[2025-05-28 11:09] LABS: Glucose Estimated Average 103 mg/dL (80-131); Hemoglobin A1C 5.2 % Hgb (4.8-6.0)
[2025-05-28] MEDS: SEVELAMER CARBONATE 800 MG TABLET PO ×2 (11:46→17:05)
[2025-05-28] MEDS: DULoxetine HCL 30 MG CAPSULE PO ×2 (11:46→21:04)
[2025-05-28] MEDS: levETIRAcetam INJ 100 MG/ML VIAL 5ML 500 MG IVP ×2 (11:46→21:03)
[2025-05-28] MEDS: POTASSIUM CHL 10 mEq IVPB 10 MEQ/100 ML BAG 75 MEQ IV ×2 (12:29→14:23)
--- NOTE | 2025-05-28 14:37 | ESCONSULT_ITS ---
RE: KAREN BARNES : 1960 DATE OF CONSULTATION: 05/28/2025 REASON FOR REFERRAL: ESRD management. REFERRING PHYSICIAN: Dr. Rae. HISTORY OF PRESENT ILLNESS: This patient is a 64-year-old woman with past medical history significant for type 2 diabetes with nephropathy, neuropathy, retinopathy, hypertension, atrial fibrillation with pacemaker placement and ESRD, on dialysis every Monday, Monday, and Monday since 2021, who presented to the emergency room earlier this morning for intractable nausea and vomiting. While in the emergency room, she was found with blood pressure of 240 systolically. She was given IV hydralazine and IV labetalol while in the emergency room and blood pressure started to improve. The patient was also started on antiemetics. The patient just finished dialysis and about 500 mL of fluid was removed. The patient has not eaten since yesterday due to nausea and vomiting. She also has history of gastroparesis, which comes on and off here and there. She also has history of recurrent PRES (posterior reversible encephalopathy syndrome) due to severe hypertension. She is doing better now and her blood pressure somehow is controlled with blood pressure in the 170s systolically today. PAST MEDICAL HISTORY: CAD, CABG in 2023, history of CVA with no residual weakness, type 2 diabetes with neuropathy, retinopathy, nephropathy, history of hypertension secondary to autonomic neuropathy and history of gastroparesis. PAST SURGICAL HISTORY: PD catheter placement and removal, pacemaker placement, CABG, section. FAMILY HISTORY: Father has diabetes, hypertension, and ESRD. ALLERGIES: NO KNOWN DRUG ALLERGIES. CURRENT MEDICATIONS: 1. Aspirin 81 mg p.o. daily. 2. Atorvastatin 40 mg at bedtime. 3. Plavix 75 mg p.o. at bedtime. 4. Cymbalta 30 mg p.o. b.i.d. 5. Hydralazine 20 mg IV x1. 6. Lispro sliding scale. 7. Labetalol 40 mg IV x1. 8. Keppra 500 mg p.o. q.12h. 9. Reglan 10 mg IV x1 and q.4h. p.r.n. 10. Zofran 4 mg IV x1. 11. Protonix 40 mg p.o. at bedtime. 12. Promethazine. 13. Scopolamine. 14. Sevelamer 800 mg p.o. t.i.d. with meals. PHYSICAL EXAMINATION: GENERAL: She is awake, alert, and oriented, not in respiratory distress. VITAL SIGNS: Blood pressure of 155/116, heart rate of 106. HEENT: Anicteric sclerae, normocephalic. NECK: Supple. No JVD. CHEST AND LUNGS: Symmetrical expansion. Clear breath sounds. CARDIAC: Heart sounds without murmur. ABDOMEN: Soft and nontender. EXTREMITIES: No edema. LABORATORY DATA: Hemoglobin 13.8, WBC 78465, platelet count 233,000. Sodium 141, potassium 3.4, chloride 103, CO2 of 20.4, BUN 29, creatinine 3.3, glucose 138, calcium 10.4. Abdomen and pelvis CT, bilateral non-obstructing renal calculi. Normal appendix. Diffuse moderate nonspecific colitis pattern. No bowel obstruction. ASSESSMENT: 1. End-stage renal disease. 2. Intractable nausea and vomiting most likely secondary to gastroparesis. 3. Hypertension, now improved. 4. Hypertensive urgency, most likely secondary to severe vomiting. 5. History of diabetes with neuropathy, retinopathy, nephropathy. 6. History of coronary artery disease with coronary artery bypass graft. PLAN: I agree with starting her on both Zofran and Reglan. The patient had dialysis today. Next dialysis will be on Monday. Continue home medications and continue p.r.n. IV labetalol 40 mg and IV hydralazine 10 mg for blood pressure above 160s systolically. DT: 13:20:45 TT: 14:36:00 Ref: [id number] - TID: [id number] [facility]
[2025-05-28] MEDS: ONDANSETRON INJ 2 MG/ML INJ 2 ML 4 MG IVP (17:28)
--- NOTE | 2025-05-28 18:40 | PC.NURSE ---
1318: Called MD about patients high BP and PRN meds needing DBP parameters. 1455: Called MD again about patients high BP for DBP parameters. at 1512 when parameters were changes, patients BP was 145/87.
[2025-05-28] MEDS: ATORVASTATIN CALCIUM 20 MG TABLET 40 MG PO (21:03)
[2025-05-28] MEDS: CLOPIDOGREL BISULFATE 75 MG TABLET PO (21:03)
[2025-05-28] MEDS: ASPIRIN EC 81 MG TABEC PO (21:03)
[2025-05-28] MEDS: PANTOPRAZOLE 40 MG TABLET PO (21:04)
[2025-05-29] VITALS (11 sets, daily range): BP systolic 135–194; BP diastolic 75–113; PULSE 75–112; RESP 11–26; TEMP 36.1–36.9; O2SAT 92–98; BMI 25.9
[2025-05-29] MEDS: ONDANSETRON INJ 2 MG/ML INJ 2 ML 4 MG IVP (00:23)
[2025-05-29] MEDS: LABETALOL 100 MG TABLET 50 MG PO ×2 (00:26→09:46)
[2025-05-29] MEDS: METOCLOPRAMIDE INJ 5 MG/ML VIAL 2 ML 10 MG IVP ×5 (02:33→23:52)
[2025-05-29 05:27] LABS: Basophils # (Auto) 0.1 Thou/mm3 (0.0-0.2); Basophils % (Auto) 0 % (0-2.5); Eosinophils # (Auto) 0.0 Thou/mm3 (0.0-0.5); Eosinophils % (Auto) 0 % (0-10); Hematocrit 43.1 % (36.0-46.0); Hemoglobin 13.9 g/dL (12.0-16.0); Immature Granulocytes Auto 0.08 Thou/mm3 (0.00-0.00); Lymphocytes # (Auto) 1.3 Thou/mm3 (1.0-4.8); Lymphocytes % (Auto) 9 % (10-50); Mean Corpuscular HGB Conc 32.3 g/dl (31.0-37.0); Mean Corpuscular Hemoglobin 30.2 pg (25.0-35.0); Mean Corpuscular Volume 94 fL (80-100); Monocytes # (Auto) 0.6 Thou/mm3 (0.0-0.8); Monocytes % (Auto) 4 % (0-12); Neutrophils # (Auto) 13.1 Thou/mm3 (1.8-7.7); Neutrophils % (Auto) 86 % (37-80); Nucleated Red Blood Cell # 0.00 Thou/mm3 (0.00-0.00); Nucleated Red Blood Cell % 0 /100 WBC (0); Platelet Count 224 Thou/mm3 (140-440); RDW Standard Deviation 57.4 fL (36.4-46.3); Red Blood Count 4.61 Miln/mm3 (4.00-5.20); White Blood Count 15.1 Thou/mm3 (3.6-11.0)
[2025-05-29 06:00] LABS: Alanine Aminotransferase 17 U/L (10-49); Albumin, Serum 4.6 gm/dL (3.4-4.8); Albumin/Globulin Ratio 1.8 (1.2-2.2); Alkaline Phosphatase 115 U/L (46-116); Anion Gap 15 (7-16); Aspartate Amino Transferase 17 U/L (0-34); BUN/Creatinine Ratio 7 Ratio (12-20); Bilirubin,Total 0.4 mg/dL (0.3-1.2); Blood Urea Nitrogen 27 mg/dL (9-23); Calcium 9.8 mg/dL (8.3-10.6); Calcium (Corrected) 9.8 mg/dL (8.5-10.1); Carbon Dioxide 23.3 mMol/L (20.0-31.0); Chloride 100 mMol/L (98-107); Creatinine (Component) 3.7 mg/dL (0.6-1.3); Estimated Creatinine Clearance 14.8 mL/min (>60); Globulin 2.5 gm/dL (2.3-3.5); Glucose 169 mg/dL (74-106); Magnesium 1.8 mg/dL (1.6-2.6); Osmolality,Calculated 284 (275-295); Phosphorous 6.0 mg/dL (2.4-5.1); Potassium 4.0 mMol/L (3.4-5.1); Sodium 138 mMol/L (136-145); Total Protein 7.1 gm/dL (5.7-8.2); eGFR 13 See Note
[2025-05-29 06:26] LABS: Glucose Estimated Average 103 mg/dL (80-131); Hemoglobin A1C 5.2 % Hgb (4.8-6.0)
[2025-05-29] MEDS: levETIRAcetam INJ 100 MG/ML VIAL 5ML 500 MG IVP ×2 (08:16→20:51)
[2025-05-29] MEDS: SEVELAMER CARBONATE 800 MG TABLET PO ×3 (08:16→17:05)
[2025-05-29] MEDS: DULoxetine HCL 30 MG CAPSULE PO ×2 (08:16→20:50)
[2025-05-29] MEDS: INSULIN LISPRO (AdmeLOG) 1 UNIT/0.01 ML UNIT SC ×3 (08:29→20:51)
--- NOTE | 2025-05-29 09:45 | EKG_ITS ---
[facility] Test Date: 2025-05-29 Pat Name: KAREN BARNES Department: Room: S274A Gender: Female Quality Manager: LAURA : 1960 Requested By: Eric Kaur Order Number: [id number] Reading MD: Eric Kaur Measurements Intervals [place] Rate: 101 P: 82 AK: 166 QRS: -27 QRSD: 94 T: 96 QT: 338 QTc: 440 Interpretive Statements SINUS TACHYCARDIA LEFT VENTRICULAR HYPERTROPHY AND ST-T CHANGE POSSIBLE ANTERIOR MYOCARDIAL INFARCTION , OF INDETERMINATE AGE Compared to ECG 05/27/2025 21:03:56 Sinus rhythm no longer present ST (T wave) deviation still present Myocardial infarct finding still present /store/S0/[id number]
--- NOTE | 2025-05-29 10:37 | ESPR_ITS ---
<Statement entered by Eric Kaur MD - 05/29/25 16:07> I saw and examined patient personally and supervised PGY 1 resident, Dr. Yates with formulating a management plan. I agree with the documentation with the exceptions as listed below. Patient is a 64-year-old female with past medical significant for hypertension, ESRD on on hemodialysis Monday/Monday/Monday with Dr Awad, CAD s/p CABG 2023, third-degree AV block s/p pacemaker placement (10/22, Dr Mehta), recurrent UTIs, type 2 diabetes mellitus, press syndrome who presented to the ED on 05/19/2025 with chief complaint of nausea and high blood pressure. Admitted for evaluation of hypertensive urgency. Problem list: 1. Hypertensive urgency?resolving 2. Intractable nausea and vomiting secondary to gastroparesis 3. History of PRES syndrome 4. Anion gap metabolic acidosis secondary to starvation ketoacidosis 5. History of seizure disorder 6. CAD s/p CABG 7. Third heart block s/p pacemaker insertion [September 2024] 8. ESRD on HD M// Overnight patient only tolerated 25% of her dinner due to persistent nausea. This morning patient still complains of persistent nausea despite scheduled Reglan every 6 hourly and Zofran as needed. Gave a one-time dose of Compazine today to see if that will help. Repeat EKG was also ordered to monitor QT as patient is on multiple QT prolonging agents, QTc was 440. If patient continues to be nauseous tomorrow will consider GI consult. With regards to patient's hypertensive urgency, today we will give labetalol 50 mg p.o. x 1 and scheduled on valsartan 40 mg p.o. at bedtime. Also added on hydralazine 10 mg IV as needed for SBP >180. Patient has a long history of hyper and hypotensive episodes so we are cautiously correcting at this point. Has outpatient she has as needed medication for both hyper and hypotension [labetalol and midodrine] Plan of care discussed with Attending Dr. Shi Kaur MD PGY 2 Disclaimer: This note was dictated by speech recognition. Minor errors in produce clerk may be present due to voice recognition software. Documentation for date of: 05/29/25 Subjective Subjective Interval history: Patient examined bedside. States she was sick all night with nausea and one episode of dry heaving, with bigh blood pressures overnight, given dose of labetalol at 12:15 midnight. She denies visual changes, blood in urine, abdominal pain, numbness tingling, hemoptysis, cough, palpitations, or headache. Exam Vital Signs Temp Pulse Resp BP Pulse Ox O2 Del Method 97.0 F 88 24 H 158/93 H 94 L Room Air 05/29/25 08:00 05/29/25 09:46 05/29/25 08:00 05/29/25 09:46 05/29/25 08:00 05/29/25 08:00 Narrative Exam GENERAL APPEARANCE: AOx3. NAD, activity normal for age, well developed/ well nourished, no cyanosis, pallor, or diaphoresis. HEENT: Normocephalic atraumatic, no facial trauma, neck is supple. Lids/conjunctiva normal. Mucous membranes moist, nares normal, lips/teeth normal uvula midline without oral pharyngeal erythema, exudate or swelling TMs normal bilaterally. No lymphangitis/lymphedema. CARDIAC: Regular rhythm tachycardic rate, S1+S2 heard. No murmurs, rubs, or gallops noted RESPIRATORY: respiratory effort normal, speaks in full sentences, no tripod position, no accessory muscle use. Lungs clear to auscultation without rhonchi, wheezes, rales ABDOMINAL: NBS. Soft, ND/NT. No evidence of fluid wave. No pulsatile masses on exam, rebound tenderness, Miller sign or pain over Mcburney's point. MUSCLES/EXTREMITIES: No abnormal range of motion, no swelling. DERM: Warm, pink and dry. No rashes, dermatoses, petechiae or lesions. NEUROLOGICAL: Speech is clear and appropriate. Normal level of consciousness. Gait and coordination are normal. 5/5 strength in all extremities. PSYCH: Normal mood and affect. Judgement/competence is appropriate Objective Labs 05/30/25 05:10 05/30/25 05:10 Labs: Laboratory Results - last 24 hr 05/28/25 05/29/25 09:00 04:51 WBC 15.1 H RBC 4.61 Hgb 13.9 Hct 43.1 MCV 94 MCH 30.2 MCHC 32.3 RDW Std Deviation 57.4 H Plt Count 224 Neut % (Auto) 86 H Lymph % (Auto) 9 L [place] % (Auto) 4 Eos % (Auto) 0 Baso % (Auto) 0 Neut # (Auto) 13.1 H Lymph # (Auto) 1.3 [place] # (Auto) 0.6 Eos # (Auto) 0.0 Baso # (Auto) 0.1 Immature Gran # (Auto) 0.08 H Absolute Nucleated RBC 0.00 Immature Gran % 1 H Nucleated RBC % 0 Sodium 138 Potassium 4.0 D Chloride 100 Carbon Dioxide 23.3 Anion Gap 15 BUN 27 H Creatinine 3.7 H Estim Creat Clear Calc 14.8 L eGFR 13 L* BUN/Creatinine Ratio 7 L Glucose [address] Glu mg/dL 103 103 Hemoglobin A1c 5.2 5.2 Calculated Osmolality 284 Calcium 9.8 Corrected Calcium 9.8 Phosphorus 6.0 H Magnesium 1.8 Total Bilirubin 0.4 AST 17 ALT 17 Alkaline Phosphatase 115 Total Protein 7.1 Albumin 4.6 Globulin 2.5 Albumin/Globulin Ratio 1.8 ABG Interpretation ABG results: 05/27/25 05/28/25 22:49 02:35 VBG pH 7.41 7.46 VBG pCO2 24 L 14 L D VBG pO2 64 H 66 H VBG Base Excess -7 L -10 L Quality Measures Quality Measures none Assessment & Plan Assessment Current Active Medications: Generic Name Dose Route Start Last Admin Trade Name Freq PRN Reason Stop Dose Admin Aspirin 81 mg 05/28/25 21:00 05/28/25 21:03 Aspirin Ec 81 Mg Tabec PO 06/27/25 20:59 81 mg HS ALEX Administration Atorvastatin Calcium 40 mg 05/28/25 21:00 05/28/25 21:03 Atorvastatin Calcium 20 Mg Tablet PO 06/27/25 20:59 40 mg HS ALEX Administration Clopidogrel Bisulfate 75 mg 05/28/25 21:00 05/28/25 21:03 Clopidogrel Bisulfate 75 Mg Tablet PO 06/27/25 20:59 75 mg HS ALEX Administration Dextrose 25 ml 05/28/25 01:53 Dextrose 50%-Water Inj 50 Ml Syringe IV 06/27/25 01:52 Q15MIN PRN BG 50-70 responsive npo pt Dextrose 50 ml 05/28/25 01:53 Dextrose 50%-Water Inj 50 Ml Syringe IV 06/27/25 01:52 Q15MIN PRN BG <50 OR BG <70 & pt unresponsive Duloxetine HCl 30 mg 05/28/25 09:00 05/29/25 08:16 Duloxetine Hcl 30 Mg Capsule PO 06/27/25 08:59 30 mg BID ALEX Administration Glucagon 1 mg 05/28/25 01:53 Glucagon Inj 1 Mg Vial IM Q15MIN PRN BG <70, and no IV access Insulin Human Lispro 0 unit 05/28/25 17:15 05/29/25 08:29 Insulin Lispro (Admelog) 1 Unit/0.01 Ml Unit SC 06/27/25 17:14 1 unit ACHS ALEX Administration Protocol Labetalol HCl 50 mg 05/28/25 15:03 05/29/25 00:26 Labetalol 100 Mg Tablet PO 06/27/25 10:14 50 mg QDAY PRN Administration SBP>180 or diastolic >110 Levetiracetam 500 mg 05/28/25 11:30 05/29/25 08:16 Levetiracetam Inj 100 Mg/Ml Vial 5ml IVP 06/27/25 11:29 500 mg Q12HR ALEX Administration Metoclopramide HCl 10 mg 05/29/25 03:00 05/29/25 08:16 Metoclopramide Inj 5 Mg/Ml Vial 2 Ml IVP 06/28/25 02:59 10 mg Q6HR ALEX Administration Protocol Ondansetron HCl 4 mg 05/28/25 13:29 05/29/25 00:23 Ondansetron Inj 2 Mg/Ml Inj 2 Ml IVP 06/27/25 13:28 4 mg Q6HR PRN Administration NAUSEA OR VOMITING Protocol Pantoprazole Sodium 40 mg 05/28/25 21:00 05/28/25 21:04 Pantoprazole 40 Mg Tablet PO 06/27/25 20:59 40 mg HS ALEX Administration Sevelamer Carbonate 800 mg 05/28/25 08:00 05/29/25 08:16 Sevelamer Carbonate 800 Mg Tablet PO 06/27/25 07:59 800 mg TIDWM ALEX Administration Valsartan 40 mg 05/29/25 21:00 Valsartan 40 Mg Tablet PO 06/28/25 20:59 HS ALEX Plan Patient is a 64-year-old female with past medical significant for hypertension, ESRD on on hemodialysis Monday/Monday/Monday with Dr Awad, CAD s/p CABG 2023, third-degree AV block s/p pacemaker placement (10/22, Dr Mehta), recurrent UTIs, type 2 diabetes mellitus, press syndrome who presented to the ED on 05/19/2025 with chief complaint of nausea and high blood pressure. Admitted for evaluation of hypertensive urgency. Today patient underwent HDS. Patient has improved NV very minimal vomitus of clear color 1-2mL. #Hypertensive urgency - resolving #Primary hypertension #History of PRES syndrome Patient presented with 1 day of nausea vomiting, dizziness with blood pressure reading 220/115. Her symptoms likely secondary to hypertensive urgency (no signs of end organ damage) and history of Pres syndrome given the fact hypertensive emergency can increase intracranial pressure, affecting brain vomiting center causing nausea vomiting. Patient medicated his valsartan 40 mg. In the ED patient received 4 mg for nausea, labetalol 40 mg and hydralazine 20 mg with noted blood pressure improvement to 152/92. Plan: - Started Reglan 10 mg for nausea /vomiting - BP control with hydralazine 10 mg and labetalol 10 mg as needed - Resume home valsartan 40 mg - Blood culture ordered: Pending - Follow-up with daily labs - Repeat EKG 05/29: QTc:440, sinus tachy, LV hypertrophy #Intractable nausea/vomiting #Starvation Ketoacidosis #[id number] type 2 diabetes mellitus #Anion gap metabolic acidosis #Respiratory alkalosis #Diabetic gastroparesis On admission glucose 250 increased to 292 last A1c 5.6% on 02/20/25. Concern for possible DKA vs starvation ketoacidosis hence VBG ordered and showed VBG 7.41, pCO2 24, bicarb 16.3 anion gap of 20. Received 1 L of NS and anion gap improved to 18. Patient has anion gap metabolic acidosis with adequate respiratory compensation. Beta hydroxybutyrate 1.2. Most likely starvation ketoacidosis since VBG pH is normal and blood glucose is around 226 now. FUP renal panel after HDS showed Bicarb: 20 therefore no need to start bicitra. Plan: -Insulin sliding scale Q6 hourly as needed. -Metoclopramide 10 Mg IV every 8 hourly as needed -Hypoglycemia protocol - 1x dose prochlorperazine 5mg PO for nausea #Leukocytosis, likely reactive #History of recurrent UTI Likely reactive to poor intake, nausea, and vomiting. WBC is 16.3 and lactic acid 1.8 the patient is afebrile, not tachycardic, with no recent sick contacts or clear source of infection. Denies fever, chills, or UTI-like symptoms. Urinalysis was negative for a UTI. No obvious source of infection identified, so there is no indication for antibiotics at this time. Plan: -Blood culture ordered, pending -Urine culture ordered, -Follow-up with daily CBCs #PRES syndrome #Hx of seizures Patient diagnosed with posterior reversible encephalopathy syndrome last admission and was started on Keppra. Plan: - Patient follows up regularly with neurologist Dr. Chan - Resume home Keppra 500mg BID #ESRD on HD via RIJ PermCath // #Tertiary hyperparathyroidism On admission bun 42, creatinine 4.4, eGFR 11, bun/cr 10. Phosphorous: 6 Plan: - Resume home sevelamer 800mg TIDWM - Dr Awad consulted, recommendation appreciated - For hemodialysis as per nephrology recommendations #CAD s/p CABG #Heart block s/p pacemaker insertion [September 2024] Plan: - Resumed home aspirin 81mg - Resumed home Plavix 75 #Depression - Continue duloxetine 30 mg p.o. twice daily #Incidental findings of colitis on CT Patient reported bowel movement. While in the ED patient has had 4 bowel for regular bowel movement. -Continue to monitor bowel movement changes Hospital management: Lines: peripheral IV Diet: Carb consistent GI prophylaxis: Protonix 40 mg DVT prophylaxis: SCDs Disposition: tele for management of hypertensive emergency CODE STATUS: Full code Patient seen and assessed under supervision of attending physician Dr. Osullivan, and supervising resident Dr. Natasha Yates MD PGY-1, Internal Medicine Attending Provider Attestation/Addendum I, Lenore Osullivan, , attest that I was physically present for the [place] portions of the service and evaluated the patient with the resident and I reviewed and discussed the case with the resident and agree with the resident's findings and plans of care as documented above Patient seen and evaluated this AM. She states that she is still very nauseous despite receiving reglan scheduled. Compazine also did not seem to help with nausea. Patient has been otherwise tolerating liquids. Patient again states that she has no appetite due to nausea. Will consider consulting GI if gastroparesis persists. She has been requiring labetalol due to persistent HTN, likely related to nausea. No emesis otherwise.
[2025-05-29] MEDS: PROCHLORPERAZINE MALEATE 5 MG TABLET PO (10:46)
[2025-05-29] MEDS: LABETALOL INJ 5 MG/ML VIAL 20 ML 10 MG IVP (12:49)
[2025-05-29] MEDS: hydrALAZINE INJ 20 MG/ML VIAL 10 MG IVP (15:38)
--- NOTE | 2025-05-29 16:46 | PC.NURSE ---
Upon rechecking patient's BP, it was 162/98 with HR of 91. Notified MD and no new orders given.
[2025-05-29] MEDS: PANTOPRAZOLE 40 MG TABLET PO (20:50)
[2025-05-29] MEDS: ASPIRIN EC 81 MG TABEC PO (20:50)
[2025-05-29] MEDS: VALSARTAN 40 MG TABLET PO (20:50)
[2025-05-29] MEDS: ATORVASTATIN CALCIUM 20 MG TABLET 40 MG PO (20:51)
[2025-05-29] MEDS: CLOPIDOGREL BISULFATE 75 MG TABLET PO (20:51)
--- NOTE | 2025-05-29 23:13 | ESPR_ITS ---
RE: KAREN BARNES : 1960 DATE OF SERVICE: 05/29/2025 HISTORY OF PRESENT ILLNESS: Briefly, she is a 64-year-old woman with past medical history significant for type 2 diabetes with nephropathy, neuropathy and retinopathy, hypertension, atrial fibrillation with pacemaker placement, and ESRD, on dialysis every Monday, Monday, and Monday since 2021, who presented to the emergency room with intractable nausea and vomiting. The patient also had a blood pressure of 240 systolically and was given IV hydralazine and IV labetalol. The patient had dialysis yesterday and is doing very well and has no complaints at this point. The patient said that her nausea and vomiting are much better now. CURRENT MEDICATIONS: 1. Aspirin. 2. Atorvastatin. 3. Plavix. 4. Cymbalta. 5. Hydralazine. 6. Lispro. 7. Labetolol. 8. Keppra 500 mg q.12. 9. Reglan. 10. Zofran. 11. Protonix. 12. Promethazine. 13. Scopolamine. 14. Sevelamer 800 mg p.o. t.i.d. with meals. PHYSICAL EXAMINATION: General: Awake, alert, and oriented. Vital Signs: Blood pressure of 135/75 and heart rate of 102. HEENT: Anicteric sclerae. Normocephalic. Neck: Supple. JVD. Chest and Lungs: Symmetric expansion. Clear breath sounds. Cardiac: Without murmur. Abdomen: Soft and nontender. Extremities: No edema. LABORATORY DATA: Hemoglobin 13.9, WBC 15,100, and platelet count 224,000. Sodium 138, potassium 4, chloride 100, CO2 is 23, BUN 15, creatinine 3.7, and glucose 159. ASSESSMENT: 1. End-stage renal disease. 2. Nausea and vomiting secondary to gastroparesis. 3. Hypertension. 4. Hypertensive urgency, now improved. 5. History of diabetes. 6. History of coronary artery disease. PLAN: The patient will have another dialysis tomorrow as tomorrow is her day. We will continue to monitor her symptoms and do physical therapy. DT: 22:54:06 TT: 23:12:00 Ref: [id number] - TID: [id number]
[2025-05-30] VITALS (21 sets, daily range): BP systolic 81–207; BP diastolic 32–119; PULSE 80–105; RESP 12–27; TEMP 36.1–36.8; O2SAT 92–97; BMI 25.9
[2025-05-30] MEDS: METOCLOPRAMIDE INJ 5 MG/ML VIAL 2 ML 10 MG IVP ×2 (05:39→12:08)
[2025-05-30 05:50] LABS: Basophils # (Auto) 0.1 Thou/mm3 (0.0-0.2); Basophils % (Auto) 1 % (0-2.5); Eosinophils # (Auto) 0.0 Thou/mm3 (0.0-0.5); Eosinophils % (Auto) 0 % (0-10); Hematocrit 42.6 % (36.0-46.0); Hemoglobin 13.7 g/dL (12.0-16.0); Immature Granulocytes Auto 0.10 Thou/mm3 (0.00-0.00); Lymphocytes # (Auto) 1.9 Thou/mm3 (1.0-4.8); Lymphocytes % (Auto) 14 % (10-50); Mean Corpuscular HGB Conc 32.2 g/dl (31.0-37.0); Mean Corpuscular Hemoglobin 29.5 pg (25.0-35.0); Mean Corpuscular Volume 92 fL (80-100); Monocytes # (Auto) 1.0 Thou/mm3 (0.0-0.8); Monocytes % (Auto) 7 % (0-12); Neutrophils # (Auto) 10.1 Thou/mm3 (1.8-7.7); Neutrophils % (Auto) 77 % (37-80); Nucleated Red Blood Cell # 0.00 Thou/mm3 (0.00-0.00); Nucleated Red Blood Cell % 0 /100 WBC (0); Platelet Count 206 Thou/mm3 (140-440); RDW Standard Deviation 56.2 fL (36.4-46.3); Red Blood Count 4.65 Miln/mm3 (4.00-5.20); White Blood Count 13.1 Thou/mm3 (3.6-11.0)
[2025-05-30 06:06] LABS: Alanine Aminotransferase 14 U/L (10-49); Albumin, Serum 4.5 gm/dL (3.4-4.8); Albumin/Globulin Ratio 1.7 (1.2-2.2); Alkaline Phosphatase 112 U/L (46-116); Anion Gap 17 (7-16); Aspartate Amino Transferase 15 U/L (0-34); BUN/Creatinine Ratio 8 Ratio (12-20); Bilirubin,Total 0.3 mg/dL (0.3-1.2); Blood Urea Nitrogen 39 mg/dL (9-23); Calcium 9.4 mg/dL (8.3-10.6); Calcium (Corrected) 9.4 mg/dL (8.5-10.1); Carbon Dioxide 21.2 mMol/L (20.0-31.0); Chloride 100 mMol/L (98-107); Creatinine (Component) 4.9 mg/dL (0.6-1.3); Estimated Creatinine Clearance 11.2 mL/min (>60); Globulin 2.6 gm/dL (2.3-3.5); Glucose 140 mg/dL (74-106); Magnesium 2.1 mg/dL (1.6-2.6); Osmolality,Calculated 287 (275-295); Phosphorous 6.0 mg/dL (2.4-5.1); Potassium 3.8 mMol/L (3.4-5.1); Sodium 138 mMol/L (136-145); Total Protein 7.1 gm/dL (5.7-8.2); eGFR 9 See Note
[2025-05-30] MEDS: ALBUMIN HUMAN-KJDA 25% IVPB 25 GM/100 ML BTL IV (10:20)
--- NOTE | 2025-05-30 11:46 | PD.RESPRO ---
Documentation for date of: 05/30/25 Exam Vital Signs Temp Pulse Resp BP Pulse Ox O2 Del Method 98.2 F 92 18 81/55 L 95 Room Air 05/30/25 08:11 05/30/25 11:30 05/30/25 08:11 05/30/25 11:30 05/30/25 08:11 05/30/25 08:00 Objective Labs 05/30/25 05:10 05/30/25 05:10 Labs: Laboratory Results - last 24 hr 05/30/25 05:10 WBC 13.1 H RBC 4.65 Hgb 13.7 Hct 42.6 MCV 92 MCH 29.5 MCHC 32.2 RDW Std Deviation 56.2 H Plt Count 206 Neut % (Auto) 77 Lymph % (Auto) 14 [place] % (Auto) 7 Eos % (Auto) 0 Baso % (Auto) 1 Neut # (Auto) 10.1 H Lymph # (Auto) 1.9 [place] # (Auto) 1.0 H Eos # (Auto) 0.0 Baso # (Auto) 0.1 Immature Gran # (Auto) 0.10 H Absolute Nucleated RBC 0.00 Immature Gran % 1 H Nucleated RBC % 0 Sodium 138 Potassium 3.8 Chloride 100 Carbon Dioxide 21.2 Anion Gap 17 H BUN 39 H Creatinine 4.9 H* D Estim Creat Clear Calc 11.2 L eGFR 9 L* BUN/Creatinine Ratio 8 L Glucose 140 H Calculated Osmolality 287 Calcium 9.4 Corrected Calcium 9.4 Phosphorus 6.0 H Magnesium 2.1 Total Bilirubin 0.3 AST 15 ALT 14 Alkaline Phosphatase 112 Total Protein 7.1 Albumin 4.5 Globulin 2.6 Albumin/Globulin Ratio 1.7 ABG Interpretation ABG results: 05/27/25 05/28/25 22:49 02:35 VBG pH 7.41 7.46 VBG pCO2 24 L 14 L D VBG pO2 64 H 66 H VBG Base Excess -7 L -10 L Quality Measures Quality Measures none Assessment & Plan Assessment Current Active Medications: Generic Name Dose Route Start Last Admin Trade Name Freq PRN Reason Stop Dose Admin Aspirin 81 mg 05/28/25 21:00 05/29/25 20:50 Aspirin Ec 81 Mg Tabec PO 06/27/25 20:59 81 mg HS ALEX Administration Atorvastatin Calcium 40 mg 05/28/25 21:00 05/29/25 20:51 Atorvastatin Calcium 20 Mg Tablet PO 06/27/25 20:59 40 mg HS ALEX Administration Clopidogrel Bisulfate 75 mg 05/28/25 21:00 05/29/25 20:51 Clopidogrel Bisulfate 75 Mg Tablet PO 06/27/25 20:59 75 mg HS ALEX Administration Dextrose 25 ml 05/28/25 01:53 Dextrose 50%-Water Inj 50 Ml Syringe IV 06/27/25 01:52 Q15MIN PRN BG 50-70 responsive npo pt Dextrose 50 ml 05/28/25 01:53 Dextrose 50%-Water Inj 50 Ml Syringe IV 06/27/25 01:52 Q15MIN PRN BG <50 OR BG <70 & pt unresponsive Duloxetine HCl 30 mg 05/28/25 09:00 05/29/25 20:50 Duloxetine Hcl 30 Mg Capsule PO 06/27/25 08:59 30 mg BID ALEX Administration Glucagon 1 mg 05/28/25 01:53 Glucagon Inj 1 Mg Vial IM Q15MIN PRN BG <70, and no IV access Hydralazine HCl 10 mg 05/29/25 15:29 05/29/25 15:38 Hydralazine Inj 20 Mg/Ml Vial IVP 06/28/25 15:28 10 mg Q6HR PRN Administration Hypertension Protocol Albumin Human 25 gm in 100 mls @ 100 mls/min 05/30/25 10:30 05/30/25 10:20 Albuminex 25% Ivpb IV 06/29/25 10:29 100 mls/min PRN PRN Administration DIALYSIS Insulin Human Lispro 0 unit 05/28/25 17:15 05/30/25 07:51 Insulin Lispro (Admelog) 1 Unit/0.01 Ml Unit SC 06/27/25 17:14 Not Given ACHS ALEX Protocol Labetalol HCl 50 mg 05/28/25 15:03 05/29/25 00:26 Labetalol 100 Mg Tablet PO 06/27/25 10:14 50 mg QDAY PRN Administration SBP>180 or diastolic >110 Levetiracetam 500 mg 05/28/25 11:30 05/29/25 20:51 Levetiracetam Inj 100 Mg/Ml Vial 5ml IVP 06/27/25 11:29 500 mg Q12HR ALEX Administration Metoclopramide HCl 10 mg 05/29/25 03:00 05/30/25 05:39 Metoclopramide Inj 5 Mg/Ml Vial 2 Ml IVP 06/28/25 02:59 10 mg Q6HR ALEX Administration Protocol Ondansetron HCl 4 mg 05/28/25 13:29 05/29/25 00:23 Ondansetron Inj 2 Mg/Ml Inj 2 Ml IVP 06/27/25 13:28 4 mg Q6HR PRN Administration NAUSEA OR VOMITING Protocol Pantoprazole Sodium 40 mg 05/28/25 21:00 05/29/25 20:50 Pantoprazole 40 Mg Tablet PO 06/27/25 20:59 40 mg HS ALEX Administration Sevelamer Carbonate 800 mg 05/28/25 08:00 05/29/25 17:05 Sevelamer Carbonate 800 Mg Tablet PO 06/27/25 07:59 800 mg TIDWM ALEX Administration Valsartan 40 mg 05/29/25 21:00 05/29/25 20:50 Valsartan 40 Mg Tablet PO 06/28/25 20:59 40 mg HS ALEX Administration
--- NOTE | 2025-05-30 11:53 | ESDS_ITS ---
<Statement entered by Eric Kaur MD - 05/30/25 16:23> I saw and examined patient personally and supervised PGY 1 resident, Dr. Nash with formulating a management plan. I agree with the documentation with the exceptions as listed below. Patient was admitted for hypertensive urgency and intractable nausea and vomiting. Hypertensive emergency was treated with as needed hydralazine 20 Mg IV pushes and her home medication of valsartan and labetalol. With regards to her nausea and vomiting 10 mg IV Q6 hourly was scheduled along with Zofran 4 mg IV Q6 hourly as needed. Today her nausea finally improved and she was able to tolerate diet. Recommend small frequent meals to reduce the symptoms of her diabetic gastroparesis. Plan of care discussed with Attending Dr. Maria Fernanda Kaur MD PGY 2 Disclaimer: This note was dictated by speech recognition. Minor errors in pace analyst may be present due to voice recognition software. Planned Discharge Date 05/30/25 DS: Providers Provider Date of admission: 05/28/25 01:45 Primary care physician: Casa Martinez Admitting Provider: Jocelyn Wolf MD Attending Provider on Admission: Finn Irving DO Consults: 05/28/25 01:55 Consult to Nephrology Routine Comment: Consulting Provider: Kailey Awad 05/28/25 06:00 Referral Infection Control Routine Comment: Reason for Infection Control Referral: Current Dialysis Patient Referral Registered Dietitian Routine Comment: new pt, nausea and vomitting ++ Attending Provider on DC: Finn Irving DO Discharging Provider: Finn Irving DO DS: Diagnosis Problem List Completed Was Problem List Reviewed/Reconciled?: Yes Hospital Course Hospital Course Hospital course: Patient is a 64-year-old female with past medical significant for hypertension, ESRD on on hemodialysis Monday/Monday/Monday with Dr Awad, CAD s/p CABG 2023, third-degree AV block s/p pacemaker placement (10/22, Dr Mehta), recurrent UTIs, type 2 diabetes mellitus, press syndrome who presented to the ED on 05/19/2025 with chief complaint of nausea and high blood pressure with systolics in the 200s, and subsequently admitted for hypertensive urgency. Patient was given hydralazine and labetolol which improved her BP, was then resumed on her home prn labetolol. The patient's nausea and vomiting were felt to be secondary to gastroparesis, and she was subsequently started on metoclopramide. As her hospital course went on, she had limited oral intake due to persistent nausea, so a one time dose of compazine and zofran PRN were added. Valsartan was added to her antihypertensive regimen. On 05/30, patient's nasua had mostly resolved and she was eating most of her meals. BP was well under control. Patient was medically cleared and subsequently discharged in stable condition. Discharge Recommendations: -Continue all medication as prescribed no changes -Follow up with your primary care physician within 1 week of discharge. If you do not have a primary care physician, please follow up with the [facility] Residents clinic ([phone]) If you experience any new, worsening or persistent symptoms either call your primary doctor, or dial 911 or present to the emergency department. Discharge Diagnoses: #Hypertensive urgency - resolving #Primary hypertension #History of PRES syndrome #Intractable nausea/vomiting #Starvation Ketoacidosis #Luk-zmibjes-ibymsepqb type 2 diabetes mellitus #Anion gap metabolic acidosis #Respiratory alkalosis #Diabetic gastroparesis #Leukocytosis, likely reactive #History of recurrent UTI #Hx of seizures #ESRD on HD via RIJ PermCath // #Tertiary hyperparathyroidism #CAD s/p CABG #Heart block s/p pacemaker insertion [September 2024] #Depression #Incidental findings of colitis on CT Time Spent with Patient Time attestation: Total time spent providing and/or coordinating discharge services: Time spent: Greater than 30 minutes Exam Vital Signs Temp Pulse Resp BP Pulse Ox O2 Del Method 98.2 F 92 18 81/55 L 95 Room Air 05/30/25 08:11 05/30/25 11:30 05/30/25 08:11 05/30/25 11:30 05/30/25 08:11 05/30/25 08:00 Narrative Exam General: Middle aged patient, laying in bed during dialysis, no acute distress, conversational. HEENT: Right sided dialysis catheter in place. Mucosa moist. Pupils are equal Cardiovascular: Normal S1 and S2. Regular rate and rhythm. No murmur appreciated. Extremities are warm and well perfused. Respiratory: Clear to auscultation bilaterally without wheezes or crackles. Abdomen: Soft, nontender, not distended, Skin: Dry, no rashes or bruising Musculoskeletal: No gross injuries. Able to move all 4 extremities. Non edematous lower extremities. Neuro: Alert, no focal neuro deficits. Psych: Normal affect and mood Discharge Plan Plan Patient Disposition: HOME (Self Care) Patient condition on transfer: Stable Care Plan Goals: -Continue all medication as prescribed no changes -Follow up with your primary care physician within 1 week of discharge. If you do not have a primary care physician, please follow up with the [facility] Residents clinic ([phone]) If you experience any new, worsening or persistent symptoms either call your primary doctor, or dial 911 or present to the emergency department. Prescriptions/Referrals Prescriptions/Med Rec: Continued levetiracetam 500 mg tablet extended release 24 hr 1,000 mg PO .PM ropinirole 0.25 mg tablet 0.25 mg PO HS labetalol 100 mg tablet 100 mg PO DAILY PRN (Reason: blood pressure) Rx Instructions: SBP <180 midodrine 5 mg tablet 10 mg PO TID PRN (Reason: low blood pressure) Rx Instructions: SBP < 100 docusate sodium 100 mg capsule 100 mg PO BID aspirin [Adult Low Dose Aspirin] 81 mg tablet,delayed release (DR/EC) 81 mg PO HS Patient Comments: pt states takes all meds at night atorvastatin 40 mg tablet 40 mg PO HS Patient Comments: pt states takes all meds at night clopidogrel 75 mg tablet 75 mg PO HS Patient Comments: pt states takes all meds at night Tradjenta 5 mg tablet 5 mg PO HS Patient Comments: pt states takes all meds at night duloxetine [Cymbalta] 30 mg capsule,delayed release(DR/EC) 30 mg PO BID ascorbate calcium (vitamin C) 500 mg tablet 1 g PO HS Patient Comments: pt states takes all meds at night valsartan 40 mg Tablet 40 mg PO QDAY PRN (Reason: SBP >140) Qty: 30 3RF meclizine 25 mg tablet 25 mg PO PRN PRN (Reason: dizziness) All Day Allergy (cetirizine) 10 mg capsule 10 mg PO QDAY sevelamer carbonate [Renvela] 800 mg tablet 800 mg PO TID Rx Instructions: must administer with a meal/food metoclopramide HCl [Reglan] 10 mg tablet 10 mg PO Q4H PRN (Reason: nausea) pantoprazole 40 mg tablet,delayed release (DR/EC) 40 mg PO HS alprazolam 1 mg tablet 1 mg PO PRN PRN (Reason: anxiety) lidocaine 5 % adhesive patch,medicated 1 patch topical QDAY Qty: 15 0RF Rx Instructions: leave on most painful area for up to 12 hrs Referrals: Casa Martinez [Primary Care Provider] Patient/Caregiver Discharge Instructions Print Language: Egyptian Stand Alone Forms: Lou Award Info., Patient Portal Info Letter Discharge Order Discharge Orders: Discharge (Routine); Ordered 05/30/25 Ordered By: Scarlet Crowell Quality Discharge Quality Measures VTE prophylaxis MD Attestestation MD Attestation I have discussed and was present for the essential components of the discharge history, physical examination, diagnosis, and discharge treatment plan with the resident. I agree with the patient's discharge care as documented by the resident and amended herein by me. Calos Irving DO. The patient understood all discharge instructions, all questions were answered satisfactorily. The patient was instructed to return to the Emergency Department is symptoms worsened or persisted. Patient was stable, afebrile, tolerating p.o. intake at time of discharge. Although this document has been carefully reviewed, there may still be some phonetic and other typographical errors. These errors are purely grammatical due to imperfections in the software program and should not be construed in any way to compromise the substance of the patient's medical care during this visit.
[2025-05-30] MEDS: DULoxetine HCL 30 MG CAPSULE PO (12:08)
[2025-05-30] MEDS: SEVELAMER CARBONATE 800 MG TABLET PO (12:08)
[2025-05-30] MEDS: levETIRAcetam INJ 100 MG/ML VIAL 5ML 500 MG IVP (12:09)
== END 2025-05-30 13:00 | disposition home or self-care (01) | DRG 304 ==
LOC: SERX 05-28 01:16 → SERHOLD 05-28 06:06 → S2NX 05-28 06:06
PROVIDERS: Internal Medicine; Admitting Provider Student in an Organized Health Care Education/Training Program; Emergency Provider Emergency Medicine; PCP Family Medicine; Visit Provider Student in an Organized Health Care Education/Training Program
DX: I16.1 Hypertensive emergency (principal); I67.83 Posterior reversible encephalopathy syndrome; N18.6 End stage renal disease; E87.4 Mixed disorder of acid-base balance; R47.01 Aphasia; E11.22 Type 2 diabetes mellitus with diabetic chronic kidney disease; I12.0 Hypertensive chronic kidney disease with stage 5 chronic kidney disease or end stage renal disease; F32.A Depression, unspecified; Z99.2 Dependence on renal dialysis; E11.43 Type 2 diabetes mellitus with diabetic autonomic (poly)neuropathy; K52.9 Noninfective gastroenteritis and colitis, unspecified; I25.10 Atherosclerotic heart disease of native coronary artery without angina pectoris; I48.91 Unspecified atrial fibrillation; G40.909 Epilepsy, unspecified, not intractable, without status epilepticus; E21.2 Other hyperparathyroidism; K31.84 Gastroparesis; E11.319 Type 2 diabetes mellitus with unspecified diabetic retinopathy without macular edema; N20.0 Calculus of kidney; Z95.1 Presence of aortocoronary bypass graft; I95.9 Hypotension, unspecified; Z95.0 Presence of cardiac pacemaker; Z98.84 Bariatric surgery status; Z79.84 Long term (current) use of oral hypoglycemic drugs; Z79.82 Long term (current) use of aspirin; Z79.899 Other long term (current) drug therapy; Z87.440 Personal history of urinary (tract) infections
CPT/HCPCS: 36415; 74177; 80048; 80053; 81001; 82010; 82803; 83036; 83605; 83690; 83735; 84100; 84484; 85025; 87040; 87081; 87086; 87400; 87811; 93005; 96374; 96375; 96376; 99284; A4649; J0360; J1643; J1815; J1953; J2405; J2765; J3480; J3490; J7030; P9047; Q0164; Q9967; A9270; J1920; P0947

== ENCOUNTER 2025-06-17 19:07 | Emergency (ER) | payer MEDICARE, MEDICAID, SELFPAY ==
[2025-06-17] VITALS (9 sets, daily range): BP systolic 165–224; BP diastolic 91–125; PULSE 73–106; RESP 12–19; TEMP -8.3–37.1; O2SAT 95–100; BMI 25.0
--- NOTE | 2025-06-17 19:19 | PD.EDRECHK ---
ED Recheck Abnl Lab Rx-RME/HPI General Chief Complaint: Nausea/Vomiting/Diarrhea Stated Complaint: HBP Time Seen by Provider: 06/17/25 19:25 Arrival date/time: 06/17/25 19:07 RME / HPI RME / HPI narrative: Dr. Lin?s Main ED Evaluation: 64yo female with a history of ESRD on on hemodialysis Monday/Monday/Monday with Dr Awad, CAD s/p CABG 2023, third-degree AV block s/p pacemaker placement (10/22, Dr Mehta), HTN, DMII, press syndrome BIBA from home presents to the ED for a chief complaint of elevated blood pressure. Patient states she had an ECHO done today and has been hypertensive throughout the day. Patient reports associated nausea and vomiting despite taking her Reglan. Patient has been unable to keep her medications down. With EMS, blood pressure was 220 systolically. Patient was given Zofran en route with improvement. Denies any other associated symptoms. NKA. Related Data Home Medications ?Medication ?Instructions ?Recorded ?Confirmed aspirin 81 mg tablet,delayed 81 mg PO HS 11/28/24 05/28/25 release (Adult Low Dose Aspirin) atorvastatin 40 mg tablet 40 mg PO HS 11/28/24 05/28/25 clopidogrel 75 mg tablet 75 mg PO HS 11/28/24 05/28/25 duloxetine 30 mg capsule,delayed 30 mg PO BID 11/28/24 05/28/25 release (Cymbalta) linagliptin 5 mg tablet (Tradjenta) 5 mg PO HS 11/28/24 05/28/25 ascorbate calcium (vitamin C) 500 1 g PO HS 12/01/24 05/28/25 mg tablet meclizine 25 mg tablet 25 mg PO PRN PRN dizziness 01/08/25 05/28/25 alprazolam 1 mg tablet 1 mg PO PRN PRN anxiety 02/19/25 05/28/25 cetirizine 10 mg capsule (All Day 10 mg PO QDAY 02/19/25 05/28/25 Allergy (cetirizine)) metoclopramide HCl 10 mg tablet 10 mg PO Q4H PRN nausea 02/19/25 05/28/25 (Reglan) pantoprazole 40 mg tablet,delayed 40 mg PO HS 02/19/25 05/28/25 release sevelamer carbonate 800 mg tablet 800 mg PO TID 02/19/25 05/28/25 (Renvela) docusate sodium 100 mg capsule 100 mg PO BID 05/28/25 05/28/25 labetalol 100 mg tablet 100 mg PO DAILY PRN blood pressure 05/28/25 05/28/25 levetiracetam 500 mg 1,000 mg PO .PM 05/28/25 05/28/25 tablet,extended release 24 hr midodrine 5 mg tablet 10 mg PO TID PRN low blood pressure 05/28/25 05/28/25 ropinirole 0.25 mg tablet 0.25 mg PO HS 05/28/25 05/28/25 Previous Rx's ?Medication ?Instructions ?Recorded valsartan 40 mg tablet 40 mg PO QDAY PRN SBP >140 #30 tabs 12/02/24 lidocaine 5 % topical patch 1 patch topical QDAY pain #15 ea 02/24/25 Allergies Allergy/AdvReac Type Severity Reaction Status Date / Time No Known Allergies Allergy Verified 02/22/25 15:54 Review of Systems Review of Systems Systems Reviewed: All systems reviewed, normal except as documented ED Exam Narrative Physical exam: Generally patient is alert slightly ill-appearing but no obvious distress, heart regular rate and rhythm, lungs clear to auscultation equal bilaterally, abdomen soft bowel sounds present nondistended mild epigastric abdominal tenderness without rebound, extremities show no edema neurologic exam showed [place] Coma Scale of 15 Course Quality Measures none Orders Category Date Time Status CBC Stat Lab 06/17/25 19:53 Completed CMP [Comprehensive Metabolic Panel] Stat Lab 06/17/25 19:53 Completed Lipase Stat Lab 06/17/25 19:53 Completed Haloperidol Lactate [Haldol Inj] Med 06/17/25 19:26 Active 5 mg IV Q6HR PRN Haloperidol Lactate [Haldol Inj] Med 06/17/25 21:31 Discontinued 5 mg IV Q6HR PRN Labetalol IV [Trandate IV] Med 06/17/25 19:55 Discontinued 20 mg IVP X1 ONE Labetalol IV [Trandate IV] Med 06/17/25 21:31 Discontinued 20 mg IVP X1 ONE Metoclopramide Inj [Reglan Inj] Med 06/17/25 19:26 Discontinued 10 mg IVP X1 ONE Metoclopramide Inj [Reglan Inj] Med 06/17/25 21:31 Discontinued 10 mg IVP X1 ONE Sodium Chloride 0.9% 1000 ml [Ns] 1,000 ml Med 06/17/25 19:26 Discontinued IV 999 mls/hr Vital Signs Vital signs: Vital Signs Temperature 97.6 F 06/17/25 19:20 Pulse Rate 102 H 06/17/25 19:20 Respiratory Rate 19 06/17/25 19:20 Blood Pressure 205/118 H 06/17/25 19:20 Pulse Oximetry (%) 96 06/17/25 19:20 Oxygen Delivery Method Room Air 06/17/25 19:20 Recheck / Abnormal Lab / Rx MDM Narrative MDM Narrative:: Scribe Attestation: 06/17/25 - Josselyn, Suzanne Sr am scribing for and in the presence of Dr. Lin. Patient has a history of dialysis dependent renal failure. Potassium is normal. Patient has had a cholecystectomy in the past. Lipase is normal. Patient was hydrated with a liter normal saline given Reglan 10 mg IV x 2 and Haldol 5 mg IV x 2 which helped the patient feel better. She normally takes Reglan at home for her diabetic gastroparesis. She has not vomited during the emergency room. Patient will be discharged in stable condition. Patient data External records reviewed:: [facility] previous records (Per chart review, patient was admitted here on 05/28/25 for acute dehydration.) Clinical information provided by:: patient Social determinants that could affect healthcare access:: none Patient has the following chronic illnesses:: ESRD on on HD (M/W/F) with Dr Awad, CAD s/p CABG 2023, third-degree AV block s/p pacemaker placement (10/22, Dr Mehta), HTN, recurrent UTIs, DMII, press syndrome How is presenting disease/condition affected by chronic disease/condition?: exacerbated by Evaluation data The following diagnostics were reviewed and interpreted by me:: lab results Lab and/or radiology exams considered but not ordered:: none Interpretation Summary: See MDM. Medications / Prescriptions Medications or Prescriptions considered but not ordered:: none Medication administrations:: Medication Administration History Haloperidol Lactate (Haloperidol Lact Inj 5 Mg/Ml Vial) 5 mg IV Q6HR PRN PRN Reason: AGITATION (SEVERE) Stop: 07/17/25 19:25 Last Admin: 06/17/25 21:45 Dose: 5 mg Documented By: LIZET Comments: PER MD LIN OK TO GIVE ADDITIONAL DOSE NOW Admin: 06/17/25 20:07 Dose: 5 mg Documented By: ROSITA Discontinued Medications Haloperidol Lactate (Haloperidol Lact Inj 5 Mg/Ml Vial) 5 mg IV Q6HR PRN PRN Reason: AGITATION (SEVERE) Stop: 07/17/25 21:30 Sodium Chloride (Ns) 1,000 mls @ 999 mls/hr IV .Q1H1M ONE Stop: 06/17/25 20:26 Last Infusion: 06/17/25 21:11 Dose: Infused Documented By: Admin: 06/17/25 19:56 Dose: 999 mls/hr Documented By: ROSITA Labetalol HCl (Labetalol Inj 5 Mg/Ml Vial 20 Ml) 20 mg IVP X1 ONE Stop: 06/17/25 19:56 Last Admin: 06/17/25 20:04 Dose: 20 mg Documented By: ROSITA Labetalol HCl (Labetalol Inj 5 Mg/Ml Vial 20 Ml) 20 mg IVP X1 ONE Stop: 06/17/25 21:32 Last Admin: 06/17/25 21:43 Dose: 20 mg Documented By: LIZET Metoclopramide HCl (Metoclopramide Inj 5 Mg/Ml Vial 2 Ml) 10 mg IVP X1 ONE; Protocol Stop: 06/17/25 19:27 Last Admin: 06/17/25 20:04 Dose: 10 mg Documented By: ROSITA Metoclopramide HCl (Metoclopramide Inj 5 Mg/Ml Vial 2 Ml) 10 mg IVP X1 ONE; Protocol Stop: 06/17/25 21:32 Last Admin: 06/17/25 21:44 Dose: 10 mg Documented By: LIZET see above Consultations Consultation(s) initiated? (list below): No Diagnosis Recheck Differential Diagnosis: other (See MDM) Most likely diagnosis given after review of the tests above:: see clinical impression below Admission Indicated Admission indicated?: not indicated Admission Request Was there a request for admission?: No Disposition Plan Disposition Plan: Discharge Discharge Attestation Discharge Attestation: The patient and all family members were given an opportunity to ask questions and understood the discharge instructions. Discharge instructions specifically effects, indications for sooner follow up or return to the emergency department, and the expected course of current diagnosis. Patient condition: Stable Discharge Plan Plan Patient Disposition: HOME (Self Care) Prescriptions/Referrals Prescriptions/Med Rec: No Action levetiracetam 500 mg tablet extended release 24 hr 1,000 mg PO .PM ropinirole 0.25 mg tablet 0.25 mg PO HS labetalol 100 mg tablet 100 mg PO DAILY PRN (Reason: blood pressure) Rx Instructions: SBP <180 midodrine 5 mg tablet 10 mg PO TID PRN (Reason: low blood pressure) Rx Instructions: SBP < 100 docusate sodium 100 mg capsule 100 mg PO BID aspirin [Adult Low Dose Aspirin] 81 mg tablet,delayed release (DR/EC) 81 mg PO HS Patient Comments: pt states takes all meds at night atorvastatin 40 mg tablet 40 mg PO HS Patient Comments: pt states takes all meds at night clopidogrel 75 mg tablet 75 mg PO HS Patient Comments: pt states takes all meds at night Tradjenta 5 mg tablet 5 mg PO HS Patient Comments: pt states takes all meds at night duloxetine [Cymbalta] 30 mg capsule,delayed release(DR/EC) 30 mg PO BID ascorbate calcium (vitamin C) 500 mg tablet 1 g PO HS Patient Comments: pt states takes all meds at night valsartan 40 mg Tablet 40 mg PO QDAY PRN (Reason: SBP >140) Qty: 30 3RF meclizine 25 mg tablet 25 mg PO PRN PRN (Reason: dizziness) All Day Allergy (cetirizine) 10 mg capsule 10 mg PO QDAY sevelamer carbonate [Renvela] 800 mg tablet 800 mg PO TID Rx Instructions: must administer with a meal/food metoclopramide HCl [Reglan] 10 mg tablet 10 mg PO Q4H PRN (Reason: nausea) pantoprazole 40 mg tablet,delayed release (DR/EC) 40 mg PO HS alprazolam 1 mg tablet 1 mg PO PRN PRN (Reason: anxiety) lidocaine 5 % adhesive patch,medicated 1 patch topical QDAY Qty: 15 0RF Rx Instructions: leave on most painful area for up to 12 hrs Referrals: Catalina Angulo FNP ([facility]) [Primary Care Provider] - In 1 week Problem List Clinical Impression: Diabetic gastroparesis Patient/Caregiver Discharge Instructions Education Materials: Delayed Gastric Emptying Additional Instructions: Take your Reglan as prescribed. Keep your dialysis appointments. Return as needed. Print Language: Guinean Stand Alone Forms: Lou Award Info., Patient Portal Info Letter
[2025-06-17] MEDS: SODIUM CHLORIDE 0.9% 1000 ML 1,000 ML 999 ML IV (19:56)
[2025-06-17] MEDS: METOCLOPRAMIDE INJ 5 MG/ML VIAL 2 ML 10 MG IVP ×2 (20:04→21:44)
[2025-06-17] MEDS: LABETALOL INJ 5 MG/ML VIAL 20 ML 20 MG IVP ×2 (20:04→21:43)
[2025-06-17] MEDS: HALOPERIDOL LACT INJ 5 MG/ML VIAL IV ×2 (20:07→21:45)
[2025-06-17 20:09] LABS: Basophils # (Auto) 0.1 Thou/mm3 (0.0-0.2); Basophils % (Auto) 1 % (0-2.5); Eosinophils # (Auto) 0.0 Thou/mm3 (0.0-0.5); Eosinophils % (Auto) 0 % (0-10); Hematocrit 41.8 % (36.0-46.0); Hemoglobin 12.9 g/dL (12.0-16.0); Immature Granulocytes Auto 0.08 Thou/mm3 (0.00-0.00); Lymphocytes # (Auto) 1.2 Thou/mm3 (1.0-4.8); Lymphocytes % (Auto) 11 % (10-50); Mean Corpuscular HGB Conc 30.9 g/dl (31.0-37.0); Mean Corpuscular Hemoglobin 28.7 pg (25.0-35.0); Mean Corpuscular Volume 93 fL (80-100); Monocytes # (Auto) 0.4 Thou/mm3 (0.0-0.8); Monocytes % (Auto) 3 % (0-12); Neutrophils # (Auto) 9.4 Thou/mm3 (1.8-7.7); Neutrophils % (Auto) 84 % (37-80); Nucleated Red Blood Cell # 0.00 Thou/mm3 (0.00-0.00); Nucleated Red Blood Cell % 0 /100 WBC (0); Platelet Count 239 Thou/mm3 (140-440); RDW Standard Deviation 54.4 fL (36.4-46.3); Red Blood Count 4.49 Miln/mm3 (4.00-5.20); White Blood Count 11.1 Thou/mm3 (3.6-11.0)
[2025-06-17 20:37] LABS: Alanine Aminotransferase 12 U/L (10-49); Albumin, Serum 5.4 gm/dL (3.4-4.8); Albumin/Globulin Ratio 2.3 (1.2-2.2); Alkaline Phosphatase 156 U/L (46-116); Anion Gap 19 (7-16); Aspartate Amino Transferase 17 U/L (0-34); BUN/Creatinine Ratio 8 Ratio (12-20); Bilirubin,Total 0.3 mg/dL (0.3-1.2); Blood Urea Nitrogen 32 mg/dL (9-23); Calcium 9.7 mg/dL (8.3-10.6); Calcium (Corrected) 9.7 mg/dL (8.5-10.1); Carbon Dioxide 19.2 mMol/L (20.0-31.0); Chloride 100 mMol/L (98-107); Creatinine (Component) 4.2 mg/dL (0.6-1.3); Estimated Creatinine Clearance 12.2 mL/min (>60); Globulin 2.4 gm/dL (2.3-3.5); Glucose 198 mg/dL (74-106); Lipase 33 U/L (12-53); Osmolality,Calculated 288 (275-295); Potassium 4.6 mMol/L (3.4-5.1); Sodium 138 mMol/L (136-145); Total Protein 7.8 gm/dL (5.7-8.2); eGFR 11 See Note
[2025-06-18 00:43] VITALS: BP 104/63; PULSE 73; RESP 15; TEMP 36.2; O2SAT 93
== END 2025-06-18 00:44 | disposition home or self-care (01) ==
PROVIDERS: Emergency Provider Emergency Medicine; PCP Nurse Practitioner Primary Care
DX: E11.43 Type 2 diabetes mellitus with diabetic autonomic (poly)neuropathy (principal); I12.0 Hypertensive chronic kidney disease with stage 5 chronic kidney disease or end stage renal disease; I25.10 Atherosclerotic heart disease of native coronary artery without angina pectoris; N18.6 End stage renal disease; Z95.0 Presence of cardiac pacemaker; Z95.1 Presence of aortocoronary bypass graft; Z99.2 Dependence on renal dialysis; E11.22 Type 2 diabetes mellitus with diabetic chronic kidney disease
CPT/HCPCS: 36415; 80053; 83690; 85025; 96374; 96375; 96376; 99283; J1630; J2765; J3490; J7030; J1920

== ENCOUNTER 2025-06-24 12:27 | Emergency (ER) | payer MEDICARE, MEDICAID, SELFPAY ==
[2025-06-24 12:43] VITALS: BP 129/81; PULSE 84; RESP 16; TEMP 36.7; O2SAT 94; BMI 24.5
--- NOTE | 2025-06-24 12:52 | EKG_ITS ---
[facility] Test Date: 2025-06-24 Pat Name: KAREN BARNES Department: Room: - Gender: Female Dam Attendant: : 1960 Requested By: Arnaldo Hendrickson Order Number: [id number] Reading MD: Arnaldo Hendrickson Measurements Intervals [place] Rate: 86 P: 38 AL: 149 QRS: -27 QRSD: 88 T: 103 QT: 373 QTc: 448 Interpretive Statements SINUS RHYTHM BORDERLINE LEFT AXIS DEVIATION [QRS AXIS < -20] LEFT VENTRICULAR HYPERTROPHY AND ST-T CHANGE [VOLTAGE CRITERIA PLUS ST/T ABNORMALITY] Compared to ECG 05/29/2025 09:52:36 Sinus tachycardia no longer present Myocardial infarct finding no longer present ST (T wave) deviation still present /store/S0/[id number].pdf
--- NOTE | 2025-06-24 12:53 | XR_ITS ---
Examination: CT brain head without contrast. 2-D sagittal coronal reconstructions Date and time of exam: June 24, 2025, 1314 hours INDICATIONS: Altered mental status today CTDI: vol (mGy): 45.6 DLP: (mGycm): 891 Technique: Multiple CT axial sections of the brain have been obtained, 5 mm slice thickness. Contrast has not been administered. 2-D sagittal, coronal reconstructions have been obtained Low dose protocols were performed. One or more of the following dose reduction techniques were used; automated exposure control, adjustment of the mA and/or KV according to patient size, use of iterative reconstruction technique. Findings: No significant ventricular enlargement. Intra-axial or extra-axial hemorrhage density is not seen. No mass effect or midline shift Basal cisterns are not remarkable. Fourth ventricle is midline. Cranial vault intact. Impression: Negative for acute hemorrhage, mass effect or midline shift Advise clinical correlation and follow-up accordingly
--- NOTE | 2025-06-24 12:53 | PD.EDRME ---
Rapid Medical Screening Exam RME Arrival date/time: 06/24/25 12:27 64-year-old female with a history of hyperlipidemia, hypertension, seizures, renal failure, presents to the emergency room with a chief complaint of altered mental status x 2 days I have greeted and performed a focused initial assessment of this patient. A comprehensive ED assessment and evaluation of the patient, analysis of all test results, and completion of the medical decision making process will be conducted by additional ED providers. Chief Complaint: Altered Mental Status Time Seen by Provider: 06/24/25 12:28 Vital signs: Vital Signs Temperature 98.1 F 06/24/25 12:43 Pulse Rate 84 06/24/25 12:43 Respiratory Rate 16 06/24/25 12:43 Blood Pressure 129/81 06/24/25 12:43 Pulse Oximetry (%) 94 L 06/24/25 12:43 Oxygen Delivery Method Room Air 06/24/25 12:43 Vital signs reviewed by provider: Yes Exam: Patient is a GCS of 14. Pupils are round and are not reactive to light Patient strong regular rhythm S1 and S2 noted Clinical Impression: Altered mental status/UTI/
[2025-06-24 13:40] LABS: Base Excess -2 (-3-3); HCO3 24 mEq/L (20-26); Inspired Oxygen, FIO2 21 %; O2 Saturation 95 % (91-98); PCO2 42 mmHg (32.0-48.0); PO2 86 mmHg (83-108); pH, Arterial 7.36 (7.35-7.45)
[2025-06-24 13:41] LABS: Allen Test Performed/OK; Puncture Site Right Radial
[2025-06-24 14:08] LABS: Basophils # (Auto) 0.1 Thou/mm3 (0.0-0.2); Basophils % (Auto) 1 % (0-2.5); Eosinophils # (Auto) 0.1 Thou/mm3 (0.0-0.5); Eosinophils % (Auto) 1 % (0-10); Hematocrit 38.4 % (36.0-46.0); Hemoglobin 11.9 g/dL (12.0-16.0); Immature Granulocytes Auto 0.21 Thou/mm3 (0.00-0.00); Lymphocytes # (Auto) 2.2 Thou/mm3 (1.0-4.8); Lymphocytes % (Auto) 16 % (10-50); Mean Corpuscular HGB Conc 31.0 g/dl (31.0-37.0); Mean Corpuscular Hemoglobin 28.7 pg (25.0-35.0); Mean Corpuscular Volume 93 fL (80-100); Monocytes # (Auto) 1.0 Thou/mm3 (0.0-0.8); Monocytes % (Auto) 7 % (0-12); Neutrophils # (Auto) 10.5 Thou/mm3 (1.8-7.7); Neutrophils % (Auto) 74 % (37-80); Nucleated Red Blood Cell # 0.00 Thou/mm3 (0.00-0.00); Nucleated Red Blood Cell % 0 /100 WBC (0); Platelet Count 258 Thou/mm3 (140-440); RDW Standard Deviation 54.2 fL (36.4-46.3); Red Blood Count 4.15 Miln/mm3 (4.00-5.20); White Blood Count 14.2 Thou/mm3 (3.6-11.0)
--- NOTE | 2025-06-24 14:15 | PC.NURSE ---
TALKED TO DAUGHTER FIDE ABOUT NEEDING URINE SPECIMEN. DAUGHTER SAID PT IS ON DIALYSIS BUT DOES MAKE A LITTLE URINE BUT IT WILL TAKE A WHILE.
[2025-06-24 14:29] LABS: Ammonia 15 uMol/L (11-32)
[2025-06-24 14:45] LABS: Acetaminophen < 2.0 mcg/mL (10.0-20.0); Alanine Aminotransferase 10 U/L (10-49); Albumin, Serum 4.5 gm/dL (3.4-4.8); Albumin/Globulin Ratio 2.3 (1.2-2.2); Alkaline Phosphatase 137 U/L (46-116); Anion Gap 11 (7-16); Aspartate Amino Transferase 19 U/L (0-34); BUN/Creatinine Ratio 5 Ratio (12-20); Bilirubin,Total 0.4 mg/dL (0.3-1.2); Blood Urea Nitrogen 21 mg/dL (9-23); Calcium 9.0 mg/dL (8.3-10.6); Calcium (Corrected) 9.0 mg/dL (8.5-10.1); Carbon Dioxide 25.0 mMol/L (20.0-31.0); Chloride 102 mMol/L (98-107); Creatinine (Component) 4.0 mg/dL (0.6-1.3); Digoxin 0.1 ng/mL (0.8-2.0); Estimated Creatinine Clearance 12.8 mL/min (>60); Globulin 2.0 gm/dL (2.3-3.5); Glucose 158 mg/dL (74-106); Magnesium 2.0 mg/dL (1.6-2.6); Osmolality,Calculated 281 (275-295); Potassium 4.4 mMol/L (3.4-5.1); Sodium 138 mMol/L (136-145); Thyroid Stimulating Hormone 0.86 uIU/mL (0.55-4.78); Total Protein 6.5 gm/dL (5.7-8.2); Troponin I 0.020 ng/mL (0.0-0.045); eGFR 12 See Note
[2025-06-24 14:57] LABS: INR 0.9 (0.9-1.3); Partial Thromboplastin Time 25.1 Seconds (22.0-36.0); Prothrombin Time 10.1 Seconds (9.0-12.2)
[2025-06-24 16:35] LABS: Collection Type, Urine Clean Catch
[2025-06-24 16:43] LABS: Bacteria,Urine 1+; Bilirubin,Urine Negative (Negative); Blood,Urine 1+ (Negative); Color,Urine Yellow (Lt Yel-Yel); Culture Indicated,Urine Contaminated; Glucose, Urine Trace (Negative); Ketones,Urine Negative (Negative); Leukocyte Esterase,Urine Positive (Negative); Nitrite,Urine Negative (Negative); PH,Urine 6.5 (5.0-7.0); Protein,Urine 3+ (Neg - Trace); RBC,Urine 5 /hpf (0-3); Specific Gravity,Urine 1.015 (1.001-1.035); Squamous Epithelial Cell,Urine 29 /hpf (0-5); Urobilinogen,Urine Negative mg/dL (0.0-1.0); WBC,Urine 87 /hpf (0-5)
[2025-06-24 16:45] VITALS: BP 180/95; PULSE 79; RESP 18; TEMP 36.6; O2SAT 94
[2025-06-24 16:50] LABS: Amphetamine/Methamp Scrn,U Negative (Negative); Barbiturate Screen,Urine Negative (Negative); Benzodiazepines Screen,Urine Positive (Negative); Benzoylecgonine Screen, Ur Negative (Negative); Fentanyl Screen,Urine Negative (Negative); Opiate Screen,Urine Positive (Negative); THC Screen,Urine Positive (Negative)
[2025-06-24 16:52] VITALS: BP 166/91; PULSE 75; RESP 14; TEMP 36.6; O2SAT 95
[2025-06-24 16:57] LABS: Clarity,Urine Hazy (Clear/Hazy)
--- NOTE | 2025-06-24 17:02 | PC.NURSE ---
PER SAMANTHA PRICING STRATEGIST, NO STROKE ALERT AT THIS TIME; PT DOES NOT HAVE ANY FOCAL DEFICITS.
--- NOTE | 2025-06-24 17:15 | EDNOTE_ITS ---
ED General RME/HPI General Chief complaint: Altered Mental Status Stated complaint: AMS; SENT BY DR. STOVER; POSS SEIZURE Time Seen by Provider: 06/24/25 12:28 Arrival date/time: 06/24/25 12:27 CC: Altered mental status. Family members and the patient stated she admits she feels off stating that she feels a little cloudy . Patient denies fever chills chest pain shortness of breath. The patient has no focal deficits is awake alert and oriented x 3 and responding to all questions appropriately with no slurred speech or word salad. RME / HPI RME / HPI narrative: 06/24/25 12:27 64-year-old female with a history of hyperlipidemia, hypertension, seizures, renal failure, presents to the emergency room with a chief complaint of altered mental status x 2 days I have greeted and performed a focused initial assessment of this patient. A comprehensive ED assessment and evaluation of the patient, analysis of all test results, and completion of the medical decision making process will be conducted by additional ED providers. Exam: Patient is a GCS of 14. Pupils are round and are not reactive to light Patient strong regular rhythm S1 and S2 noted Impression: Altered mental status/UTI/ Related Data Home Medications ?Medication ?Instructions ?Recorded ?Confirmed aspirin 81 mg tablet,delayed 81 mg PO HS 11/28/2409/21 release (Adult Low Dose Aspirin) atorvastatin 40 mg tablet 40 mg PO HS 11/28/24 5 clopidogrel 75 mg tablet 75 mg PO HS 11/28/24 5 duloxetine 30 mg capsule,delayed 30 mg PO BID 11/28/24 05/28/25 release (Cymbalta) linagliptin 5 mg tablet (Tradjenta) 5 mg PO HS 5 05/28/25 ascorbate calcium (vitamin C) 500 1 g PO HS 12/01/24 1 mg tablet meclizine 25 mg tablet 25 mg PO PRN PRN dizziness 0 01/08/25 05/28/25 alprazolam 1 mg tablet 1 mg PO PRN PRN anxiety 01/2705/28/25 cetirizine 10 mg capsule (All Day 10 mg PO QDAY 05/28/25 Allergy (cetirizine)) metoclopramide HCl 10 mg tablet 10 mg PO Q4H PRN nause a 02/19/25 05/28/25 (Reglan) pantoprazole 40 mg tablet,delayed 40 mg PO HS 02/19/25 05/28/25 release sevelamer carbonate 800 mg tablet 800 mg PO TID 05/28/25 (Renvela) docusate sodium 100 mg capsule 100 mg PO BID 05/28/25 05/28/25 labetalol 100 mg tablet 100 mg PO DAILY PRN blood pr essure 05/28/25 05/28/25 levetiracetam 500 mg 1,000 mg PO .PM 05/28/2509/21 tablet,extended release 24 hr midodrine 5 mg tablet 10 mg PO TID PRN low blood p ressure 05/28/25 05/28/25 ropinirole 0.25 mg tablet 0.25 mg PO HS 05/28/2505/28 Previous Rx's ?Medication ?Instructions ?Recorded valsartan 40 mg tablet 40 mg PO QDAY PRN SBP >140 # 30 tabs 12/02/24 lidocaine 5 % topical patch 1 patch topical QDAY pain #15 ea 02/24/25 Allergies Allergy/AdvReac Type Severity Reaction Status Date / Time No Known Allergies Allergy Verified 06/24/25 12:31 Review of Systems Review of Systems Narrative Review of Systems: GEN: No fever, no chills, no weight loss EYES: No discharge, no visual changes, no pain HEENT: No ear pain, no congestion, no sore throat PULM: No shortness of breath, no cough, no congestion CV: No chest pain, no dyspnea on exertion, no palpitations GI: No nausea, no vomiting, no diarrhea, no pain, no constipation : No frequency, no urgency, no dysuria MUSC/SKEL: No joint pain, no back pain SKIN: No rash PSYCH: No hallucinations, no depression HEME/LYMPH: No easy bleeding or bruising tendencies NEURO: No weakness, no headache Past Medical History Past Medical History NEUROLOGIC: Positive Neurological Disorders, Cerebrovascular Accident and S eizures CARDIAC: Positive Cardiac Disorders, Coronary Artery Disease, Hypercholesterolemia, Hypertension and Hypotension; Negative Congestive Heart Failure RESPIRATORY: Negative Chronic Obstructive Pulmonary Disease (COPD) or Asthma GASTROINTESTINAL: Positive Gastrointestinal Disorders, Esophageal Varices and Gastroesophageal Reflux Disease GENITOURINARY: Positive Genitourinary Disorders, Renal Disease and Dialysis (Hemodialysis MWF) MUSCULOSKELETAL: Positive Fractures (ARM?); Negative Musculoskeletal Disorders ENT: Positive Ear Infection ([place] right ear) ENDOCRINE: Positive Endocrine Disorders and Diabetes Mellitus Type 2; Negative Diabetes Mellitus Type 1 HEMATOLOGIC: Negative Blood Disorders or Sickle Cell Disease PSYCHO/SOCIAL: Positive Recreational Drug Use (THC gummies) and Anxiety OTHER HISTORY: Positive Falls, Blood Transfusions, Chicken Pox, Measles and Mumps; Negative Blood Transfusion Reaction, Anesthesia Reactions or Cancer Family History FAMILY HISTORY: Positive Family Cancer Surgical History SURGICAL: Positive Open Heart Surgery, Coronary Artery Bypass Graft (2023), Pacemaker (09/2024), Abdominal Surgery, Gastric Bypass Surgery, Hysterectomy and Section Social History SMOKING STATUS: Never smoker SECOND HAND EXPOSURE: No SUBSTANCE USE: does not use ED Exam Narrative Physical exam: [General: Not in any acute distress Head normocephalic HEENT: Within acceptable limits Neck is supple nontender Chest equal chest rise nontender to palpation Respiratory: Clear to auscultation no wheezes crackles or rubs CV: Rate rhythm is regular no murmurs rubs or clicks Abdomen is soft nontender no masses positive bowel sounds all 4 quadrants Back: No CVA tenderness no spinous process tenderness from cervical spine thoracic and lumbar spine Skin: Intact no petechiae rash induration ulceration or crepitus Extremities: Moving all extremity against resistance cap refill less than 2 seconds neurosensory intact Neuro: Awake alert oriented x3 Glascow coma 15 no focal deficits] Course Course Course Narrative: Laboratory results are wholly unremarkable, we have no acute finding that would indicate any kind of altered mentation however the patient is noted to be positive for benzos opiates and marijuana. When I asked the daughter they said he took a half a pain pill last night as well as being newly prescribed Xanax and took the gummy because she has a loss of appetite over the 7 3 to 4 days. The patient I suspect, has a sensitivity to these medications since they are not used very often and the combination of the 3 could possibly cause this cloudy, off sensation. Discussed this with the daughter and they are agreeing to discharge. At this time they will not use any Gummies THC opiates or anxiety medication to see if this clears. Patient is comfortable with this plan. 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 Care 06/24/25 12:52 Active EKG (ED ONLY) *Do not use* NOW Care 06/24/25 12:52 Completed NPO NOW Care 06/24/25 12:[address] head/brain wo con Stat Exams 06/24/25 12:53 Completed EKG (ED Only) Stat Exams 06/24/25 12:52 Draft Acetaminophen Stat Lab 06/24/25 13:45 Completed Ammonia Stat Lab 06/24/25 13:45 Completed Ammonia Stat Lab 06/24/25 17:02 Ordered Arterial Blood Gas Stat Lab 06/24/25 13:31 Completed Blood Culture (Lab) Stat Lab 06/24/25 13:45 Received CBC Stat Lab 06/24/25 13:45 Completed Comprehensive Metabolic Panel Stat Lab 06/24/25 13:45 Completed Digoxin Stat Lab 06/24/25 13:45 Completed Drug Screen,Urine Stat Lab 06/24/25 16:28 Completed Magnesium Stat Lab 06/24/25 13:45 Completed Partial Thromboplastin Time Stat Lab 06/24/25 13:45 Completed Prothrombin Time with INR Stat Lab 06/24/25 13:45 Completed Thyroid Stimulating Hormone Stat Lab 06/24/25 13:45 Completed Troponin I Stat Lab 06/24/25 13:45 Completed Urinalysis, C/S if Indicated Stat Lab 06/24/25 16:28 Completed Vital Signs Vital signs: Vital Signs Temperature 98.1 F 06/24/25 12:43 Pulse Rate 84 06/24/25 12:43 Respiratory Rate 16 06/24/25 12:43 Blood Pressure 129/81 06/24/25 12:43 Pulse Oximetry (%) 94 L 06/24/25 12:43 Oxygen Delivery Method Room Air 06/24/25 12:43 Discharge Plan Plan Patient Disposition: HOME (Self Care) Patient condition on transfer: Stable Prescriptions/Referrals Prescriptions/Med Rec: No Action levetiracetam 500 mg tablet extended release 24 hr 1,000 mg PO .PM ropinirole 0.25 mg tablet 0.25 mg PO HS labetalol 100 mg tablet 100 mg PO DAILY PRN (Reason: blood pressure) Rx Instructions: SBP <180 midodrine 5 mg tablet 10 mg PO TID PRN (Reason: low blood pressure) Rx Instructions: SBP < 100 docusate sodium 100 mg capsule 100 mg PO BID aspirin [Adult Low Dose Aspirin] 81 mg tablet,delayed release (DR/EC) 81 mg PO HS Patient Comments: pt states takes all meds at night atorvastatin 40 mg tablet 40 mg PO HS Patient Comments: pt states takes all meds at night clopidogrel 75 mg tablet 75 mg PO HS Patient Comments: pt states takes all meds at night Tradjenta 5 mg tablet 5 mg PO HS Patient Comments: pt states takes all meds at night duloxetine [Cymbalta] 30 mg capsule,delayed release(DR/EC) 30 mg PO BID ascorbate calcium (vitamin C) 500 mg tablet 1 g PO HS Patient Comments: pt states takes all meds at night valsartan 40 mg Tablet 40 mg PO QDAY PRN (Reason: SBP >140) Qty: 30 3RF meclizine 25 mg tablet 25 mg PO PRN PRN (Reason: dizziness) All Day Allergy (cetirizine) 10 mg capsule 10 mg PO QDAY sevelamer carbonate [Renvela] 800 mg tablet 800 mg PO TID Rx Instructions: must administer with a meal/food metoclopramide HCl [Reglan] 10 mg tablet 10 mg PO Q4H PRN (Reason: nausea) pantoprazole 40 mg tablet,delayed release (DR/EC) 40 mg PO HS alprazolam 1 mg tablet 1 mg PO PRN PRN (Reason: anxiety) lidocaine 5 % adhesive patch,medicated 1 patch topical QDAY Qty: 15 0RF Rx Instructions: leave on most painful area for up to 12 hrs Referrals: Kev RODRIGUES)Catalina PA-C [Primary Care Provider] - In 1 week Problem List Clinical Impression: Altered mental status Patient/Caregiver Discharge Instructions Education Materials: ED Confusion Print Language: Palestinian Stand Alone Forms: Lou Award Info., Work/School Release, Patient Portal Info Letter 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 Labs Labs: interpreted by me Lab(s) Interpretation(s): CBC leukocytosis of 14.2 mild anemia with a hemoglobin of 11.9 hematocrit of 38.4. No thrombocytopenia Coags within acceptable limits ABG shows a pH of 7.36 pCO2 of 42 pO2 of 86 bicarb of 24 base deficit of 2. CMP shows no significant electrolyte imbalances a BUN of 21 creatinine 4.0. Glucose 158. No transaminitis or T. bili elevation Ammonia levels 15 Troponin is negative TSH is within acceptable limits Urine 3+ protein 1+ blood WBCs at 87 RBCs at 5 squamous epithelia 20 91+ bacteria this is a contaminated specimen Digoxin at 0.1 UDS positive for opiates benzos and marijuana. Imaging Imaging interpretation: interpreted by ca Imaging Interpretation(s): Head CT is negative for any acute finding.
[2025-06-24 17:47] LABS: Ammonia < 10 uMol/L (11-32)
== END 2025-06-24 17:38 | disposition home or self-care (01) ==
PROVIDERS: Nurse Practitioner Family; Registered Nurse General Practice; Emergency Provider Family Medicine; PCP Physician Assistant
DX: R41.82 Altered mental status, unspecified (principal); E78.5 Hyperlipidemia, unspecified; I12.0 Hypertensive chronic kidney disease with stage 5 chronic kidney disease or end stage renal disease; N18.6 End stage renal disease
CPT/HCPCS: 36415; 36600; 70450; 80053; 80162; 80307; 80329; 81001; 82140; 82803; 83735; 84443; 84484; 85025; 85610; 85730; 87040; 87077; 87186; 93005; 99284; G0480

== ENCOUNTER 2025-06-25 00:18 | Inpatient (IN) | payer MEDICARE, MEDICAID, SELFPAY ==
[2025-06-25] VITALS (32 sets, daily range): BP systolic 107–204; BP diastolic 61–118; PULSE 68–97; RESP 12–95; TEMP 35.7–36.9; O2SAT 65–99; BMI 25.3; BMI 24.5
--- NOTE | 2025-06-25 00:35 | PC.NURSE ---
THIS RN INFORMED PROVIDER OF PATIENT LETHARGIC STATE AND EYE TREMORS. THIS RN ASKED PROVIDER IF STROKE ALERT WAS NEEDED. PER PROVIDER ONUR NO STROKE Alert needed
[2025-06-25] MEDS: levETIRAcetam INJ 100 MG/ML VIAL 5ML 1000 MG IVP (01:34)
[2025-06-25] MEDS: hydrALAZINE INJ 20 MG/ML VIAL 10 MG IVP (01:35)
--- NOTE | 2025-06-25 01:45 | EKG_ITS ---
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
--- NOTE | 2025-06-25 01:49 | XR_ITS ---
Examination: CT brain head without contrast. 2-D sagittal coronal reconstructions Date and time of exam: June 25, 2025, 0229 hours, comparison June 24, 2025 INDICATIONS: Onset altered mental status today CTDI: vol (mGy): 47.5 DLP: (mGycm): 928 Technique: Multiple CT axial sections of the brain have been obtained, 5 mm slice thickness. Contrast has not been administered. 2-D sagittal, coronal reconstructions have been obtained Low dose protocols were performed. One or more of the following dose reduction techniques were used; automated exposure control, adjustment of the mA and/or KV according to patient size, use of iterative reconstruction technique. Findings: No significant ventricular enlargement. Intra-axial or extra-axial hemorrhage density is not seen. No mass effect or midline shift Basal cisterns are not remarkable. Fourth ventricle is midline. Cranial vault intact. Stable hypodensity at the right transverse sinus Impression: Negative for acute hemorrhage, mass effect or midline shift Consider brain MRI follow-up repeat as clinically warranted
--- NOTE | 2025-06-25 01:52 | PD.EDAMS ---
Altered Mental Status RME/HPI General Chief Complaint: Altered Mental Status Stated Complaint: AMS Time Seen by Provider: 06/25/25 00:58 Arrival date/time: 06/25/25 00:18 RME / HPI RME / HPI narrative: DR. 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 Patient was minimally responsive to daughter prompting presentation to ED. No recent fever, chills, vomiting, abdominal pain, urinary frequency, urgency or dysuria. PMH: Cerebrovascular Accident, Seizures, Coronary Artery Disease, Hypercholesterolemia, Hypertension, Hypotension, Esophageal Varices, Gastroesophageal Reflux Disease, Renal Disease and Dialysis, Diabetes Mellitus Type 2 PSH: Coronary Artery Bypass Graft (2023), Pacemaker (09/2024), Gastric Bypass Surgery, Hysterectomy and Section Allergies: None Social: Positive THC, Denies alcohol or illicit drug abuse Related Data Home Medications ?Medication ?Instructions ?Recorded ?Confirmed aspirin 81 mg tablet,delayed 81 mg PO HS 11/28/24 06/25/25 release (Adult Low Dose Aspirin) atorvastatin 40 mg tablet 40 mg PO HS 11/28/24 06/25/25 clopidogrel 75 mg tablet 75 mg PO HS 11/28/24 06/25/25 duloxetine 30 mg capsule,delayed 30 mg PO BID 11/28/24 06/25/25 release (Cymbalta) linagliptin 5 mg tablet (Tradjenta) 5 mg PO HS 11/28/24 06/25/25 ascorbate calcium (vitamin C) 500 1 g PO HS 12/01/24 06/25/25 mg tablet meclizine 25 mg tablet 25 mg PO PRN PRN dizziness 01/08/25 06/25/25 alprazolam 1 mg tablet 0.25 mg PO PRN PRN anxiety 02/19/25 06/25/25 cetirizine 10 mg capsule (All Day 10 mg PO QDAY 02/19/25 06/25/25 Allergy (cetirizine)) metoclopramide HCl 10 mg tablet 10 mg PO Q4H PRN nausea 02/19/25 06/25/25 (Reglan) pantoprazole 40 mg tablet,delayed 40 mg PO HS 02/19/25 06/25/25 release sevelamer carbonate 800 mg tablet 800 mg PO TID 02/19/25 06/25/25 (Renvela) docusate sodium 100 mg capsule 100 mg PO BID 05/28/25 06/25/25 labetalol 100 mg tablet 50 mg PO DAILY PRN blood pressure 05/28/25 06/25/25 levetiracetam 500 mg 1,000 mg PO .PM 05/28/25 06/25/25 tablet,extended release 24 hr midodrine 5 mg tablet 10 mg PO TID PRN low blood pressure 05/28/25 06/25/25 ropinirole 0.25 mg tablet 0.25 mg PO HS 05/28/25 06/25/25 Previous Rx's ?Medication ?Instructions ?Recorded valsartan 40 mg tablet 40 mg PO QDAY PRN SBP >140 #30 tabs 12/02/24 lidocaine 5 % topical patch 1 patch topical QDAY pain #15 ea 02/24/25 Allergies Allergy/AdvReac Type Severity Reaction Status Date / Time No Known Allergies Allergy Verified 06/24/25 12:31 Review of Systems Review of Systems Systems Reviewed: All systems reviewed, normal except as documented Past Medical History Past Medical History NEUROLOGIC: Positive Cerebrovascular Accident and Seizures CARDIAC: Positive Coronary Artery Disease, Hypercholesterolemia, Hypertension and Hypotension GASTROINTESTINAL: Positive Esophageal Varices and Gastroesophageal Reflux Disease GENITOURINARY: Positive Renal Disease and Dialysis (Hemodialysis MWF) MUSCULOSKELETAL: Positive Fractures (ARM?) ENT: Positive Ear Infection (QAWALANGIN right ear) ENDOCRINE: Positive Diabetes Mellitus Type 2 PSYCHO/SOCIAL: Positive Recreational Drug Use (THC gummies) and Anxiety OTHER HISTORY: Positive Falls, Blood Transfusions, Chicken Pox, Measles and Mumps Family History FAMILY HISTORY: Positive Family Cancer Surgical History SURGICAL: Positive Open Heart Surgery, Coronary Artery Bypass Graft (2023), Pacemaker (09/2024), Abdominal Surgery, Gastric Bypass Surgery, Hysterectomy and Section ED Exam Narrative Physical exam: GEN. APPEARANCE: The patient is deeply somulant although responds to loud vocal and tactile stimuli, can follow simple commands, notably hypertensive upon arrival. Patient has good eye contact. VITALS: All vitals were reviewed and the pulse ox is 99%, which is normal according to my interpretation HEENT: Normocephalic, atraumatic and nontender. Pupils are equal and reactive. Oral mucosa is moist. NECK: Supple, nontender, no meningismus, no JVD. There is no thyromegaly and no lymphadenopathy. CHEST: Nontender on palpation no deformity and no crepitus. CARDIOVASCULAR: Heart regular rhythm, no murmur or gallop rub or extra beats. LUNGS: Clear to auscultation bilaterally with symmetrical chest rise. No laboring tachypnea or wheezing. No intercostal subcostal retraction. No rales and no rhonchi. ABDOMEN: Soft, flat, nontender to palpation, no guarding or rebound tenderness. There are no abnormal masses palpated. No pulsatile masses or bruits. Active and normal bowel sounds. EXTREMITIES: Normal inspection and palpation. No edema. No cyanosis. Patient is able to move all 4 extremities well SKIN: Warm and dry, no rashes noted. MUSCULOSKELETAL: No lumbar or midline bony tenderness. There is no CVA tenderness. No paraspinal muscle spasm or tenderness. NEURO: Cranial nerves II through XII grossly intact. Diminished motor strength x4 extremities PSYCHIATRIC: Patient is in normal mood and affect, cooperative. LYMPHATICS: No major lymphadenopathy noted. Course Quality Measures none Orders Category Date Time Status Bedside Blood Glucose NOW Care 06/25/25 01:45 Active Sales Promotion Representative Q4H START 00 Care 06/25/25 01:46 Active EKG (ED ONLY) *Do not use* NOW Care 06/25/25 01:46 Completed In and Out Catheter X1 Care 06/25/25 01:45 Completed Insert IV NOW Care 06/25/25 01:46 Active NPO NOW Care 06/25/25 01:[address] head/brain wo con Stat Exams 06/25/25 01:49 Completed EKG (ED Only) Stat Exams 06/25/25 01:45 Draft Acetaminophen Stat Lab 06/25/25 02:03 Completed Alcohol, Blood Medical Stat Lab 06/25/25 02:03 Completed Ammonia Stat Lab 06/25/25 02:03 Completed CBC Stat Lab 06/25/25 02:03 Completed CK [Creatine Kinase] Stat Lab 06/25/25 06:14 Completed Comprehensive Metabolic Panel Stat Lab 06/25/25 02:03 Completed Drug Screen,Urine Stat Lab 06/25/25 05:00 Completed Magnesium Stat Lab 06/25/25 02:03 Completed Phenytoin (Dilantin) Stat Lab 06/25/25 02:03 Completed Salicylate Stat Lab 06/25/25 02:03 Completed Thyroid Stimulating Hormone Stat Lab 06/25/25 02:03 Completed Troponin I Stat Lab 06/25/25 02:03 Completed Labetalol IV [Trandate IV] Med 06/25/25 05:33 Discontinued 10 mg IVP X1 ONE Sodium Chloride 0.9% 1000 ml [Ns] 1,000 ml Med 06/25/25 01:45 Discontinued IV 1,000 mls/hr hydrALAZINE INJ [Apresoline Inj] Med 06/25/25 01:13 Discontinued 10 mg IVP X1 ONE levETIRAcetam INJ [Keppra Inj] Med 06/25/25 01:13 Discontinued 1,000 mg IVP X1 ONE Oxygen Delivery NOW RT 06/25/25 01:46 Active Vital Signs Vital signs: Vital Signs Temperature 97.8 F 06/25/25 00:34 Pulse Rate 79 06/25/25 00:34 Respiratory Rate 14 06/25/25 00:34 Blood Pressure 170/118 H 06/25/25 00:34 Pulse Oximetry (%) 96 06/25/25 00:34 Oxygen Delivery Method Room Air 06/25/25 00:34 Altered Mental Status MDM Narrative MDM Narrative:: Scribe Attestation: Sylvie Arcos, bryant scribing for and in the presence of Dr. Borja. Provider Notation: Although this document has been carefully reviewed, there may still be some phonetic and other typographical errors. These errors are purely grammatical due to imperfections in the software program and should not be construed in any way to compromise the substance of the patient's medical care during this visit. Please see PE findings. Patient markedly hypertensive upon arrival based on monitor, IV established, administered anti-hypertensive medication with gradual reduction in BP. Patient hydrated with saline and loaded with Keppra given kuasi seizure0-lie activity characterized by myoclonic jerking of both upper and lower extremities. Lab markers normal WBC, patient anemic hemoglobin 9.4, although normal platelet count. No left shift or associated bandemia. Serum mild acidosis CO2 of 19.4 with dim eGFR of 12 (baseline), serum ammonia level was undetected. EKG without evidence of pericarditis, infarction, although evidence of LVH evident. Patient observed for extended period of time with slight improvement in sensorium. CT scan of the brain unremarkable. CPK currently pending. Highly suspect patient remained sedated likely due to polypharmacy. Patient data External records reviewed:: [facility] previous records (Reviewed prior ED records from 06/18/25. Patient was seen for Diabetic gastroparesis.) Clinical information provided by:: family (Daughter) Social determinants that could affect healthcare access:: substance use (THC) Patient has the following chronic illnesses:: Cerebrovascular Accident, Seizures, Coronary Artery Disease, Hypercholesterolemia, Hypertension, Hypotension, Esophageal Varices, Gastroesophageal Reflux Disease, Renal Disease and Dialysis, Diabetes Mellitus Type 2 How is presenting disease/condition affected by chronic disease/condition?: exacerbated by Evaluation data The following diagnostics were reviewed and interpreted by me:: lab results and EKG tracing(s) (EKG demonstrates sinus rhythm with rate of 82 bpm without evidence of pericarditis, infarction, although evidence of LVH evident. per my interpretation.) Lab and/or radiology exams considered but not ordered:: None Interpretation Summary: RADIOLOGY Head/Brain CT: Findings: The evaluation is slightly limited due to motion artifacts. There is no definitive evidence of acute intracranial hemorrhage, mass effect or midline shift. Again seen is hypodensity along the right transverse sinus measuring 1.2 cm, also described in the prior report. There are periventricular white matter hypodensities, compatible with chronic small vessel ischemia. No definitive wedge shaped acute infarcts are detected. Please note that subtle early infarcts are better assessed using diffusion weighted MR imaging if clinically indicated. There is mild volume loss. There is atheromatous calcification of the intracranial arteries. The calvarium is unremarkable. The mastoid air cells and the visualized paranasal sinuses are clear. Impression: No definitive evidence of acute intracranial hemorrhage, mass effect or midline shift. If there are persistent clinical symptoms or additional clinical concerns consider an MRI. Hypodensity along the right transverse sinus (1.2 cm), also described in the prior report. Suggest comparison with images from prior studies. Medications / Prescriptions Medications or Prescriptions considered but not ordered:: None Medication administrations:: Medication Administration History Acetaminophen (Acetaminophen 325 Mg Tablet) 650 mg PO Q6H PRN PRN Reason: PAIN OR FEVER > 101 Stop: 07/25/25 08:15 Aspirin (Aspirin Ec 81 Mg Tabec) 81 mg PO QDAY ALEX On Hold: 06/25/25 09:40 Stop: 07/25/25 08:59 Last Admin: 06/25/25 09:02 Dose: Not Given Documented By: VG Non-Admin Reason: Unable to Swallow Comments: pt unable to safely swallow PO meds at this time, Dr Flores aware. Clopidogrel Bisulfate (Clopidogrel Bisulfate 75 Mg Tablet) 75 mg PO QDAY ALEX On Hold: 06/25/25 09:40 Stop: 07/25/25 08:59 Last Admin: 06/25/25 09:03 Dose: Not Given Documented By: VG Non-Admin Reason: Unable to Swallow Comments: pt unable to safely swallow PO meds at this time, Dr Flores aware. Dextrose (Dextrose 50%-Water Inj 50 Ml Syringe) 25 ml IV Q15MIN PRN PRN Reason: BG 50-70 responsive npo pt Stop: 07/25/25 09:39 Dextrose (Dextrose 50%-Water Inj 50 Ml Syringe) 50 ml IV Q15MIN PRN PRN Reason: BG <50 OR BG <70 & pt unresponsive Stop: 07/25/25 09:39 Glucagon (Glucagon Inj 1 Mg Vial) 1 mg IM Q15MIN PRN PRN Reason: BG <70, and no IV access Heparin Sodium (Porcine) (Heparin Sod Inj 1000 Unit/Ml Vial 10 Ml) 3,300 unit INDWELLCAT PRN PRN PRN Reason: DIALYSIS Stop: 07/09/25 11:41 Last Admin: 06/25/25 12:06 Dose: 3,300 unit Documented By: MM Co-signed By: MM(2) Admin: 06/25/25 12:05 Dose: 3,300 unit Documented By: JULIETTE Co-signed By: MM(2) Insulin Human Lispro (Insulin Lispro (Admelog) 1 Unit/0.01 Ml Unit) 0 unit SC Q6H ALEX; Protocol Stop: 07/25/25 09:44 Last Admin: 06/26/25 05:08 Dose: Not Given Documented By: AM Non-Admin Reason: Per Protocol Admin: 06/25/25 22:18 Dose: Not Given Documented By: Non-Admin Reason: Per Protocol Admin: 06/25/25 16:17 Dose: Not Given Documented By: MARYBETH Non-Admin Reason: blood sugar 99 Admin: 06/25/25 10:45 Dose: Not Given Documented By: NAVDEEP Non-Admin Reason: Per Protocol Labetalol HCl (Labetalol Inj 5 Mg/Ml Vial 20 Ml) 10 mg IVP Q4H PRN PRN Reason: Sbp > 165 Stop: 07/25/25 08:16 Last Admin: 06/25/25 20:18 Dose: 10 mg Documented By: Admin: 06/25/25 16:13 Dose: 10 mg Documented By: MARYBETH Levetiracetam (Levetiracetam Inj 100 Mg/Ml Vial 5ml) 1,000 mg IVP Q12HR ALEX Stop: 07/26/25 08:59 Lorazepam (Lorazepam 2 Mg/Ml Vial) 2 mg IVP Q15MIN PRN PRN Reason: Seizure Activity Stop: 06/30/25 12:19 Metoclopramide HCl (Metoclopramide Inj 5 Mg/Ml Vial 2 Ml) 5 mg IVP Q8HR PRN; Protocol PRN Reason: nausea Stop: 07/25/25 13:59 Ondansetron HCl (Ondansetron Inj 2 Mg/Ml Inj 2 Ml) 4 mg IV Q6H PRN; Protocol PRN Reason: NAUSEA OR VOMITING Stop: 07/25/25 08:15 Pantoprazole Sodium (Pantoprazole Inj 40 Mg Vial) 40 mg IVP QDAY ALEX Stop: 07/25/25 08:59 Last Admin: 06/25/25 08:41 Dose: 40 mg Documented By: NAVDEEP Pharmacy Consult (Pharmacy Renal Dose Adjustment 1 Ea) 1 each XX PRN PRN PRN Reason: CONSULT Stop: 07/25/25 12:20 Pharmacy Consult (Vancomycin Pharmacy To Dose 1 Each Each) 1 each IV QDAY ALEX Stop: 07/25/25 17:14 Last Admin: 06/25/25 17:39 Dose: 1 each Documented By: MARYBETH Sennosides (Senna Tablet) 2 tab PO BID PRN; Protocol PRN Reason: CONSTIPATION Stop: 07/25/25 08:59 Discontinued Medications Hydralazine HCl (Hydralazine Inj 20 Mg/Ml Vial) 10 mg IVP X1 ONE Stop: 06/25/25 01:14 Last Admin: 06/25/25 01:35 Dose: 10 mg Documented By: MADELINE Hydralazine HCl (Hydralazine Inj 20 Mg/Ml Vial) 10 mg IV X1 ONE Stop: 06/25/25 21:54 Last Admin: 06/25/25 22:14 Dose: 10 mg Documented By: Sodium Chloride (Ns) 1,000 mls @ 1,000 mls/hr IV .Q1H ONE Stop: 06/25/25 02:44 Last Infusion: 06/25/25 04:34 Dose: Infused Documented By: Admin: 06/25/25 03:34 Dose: 1,000 mls/hr Documented By: MADELINE Vancomycin HCl (Vancomycin/Water 1250 Mg Ivpb) 250 mls @ 120 mls/hr IV X1 ONE; Protocol Stop: 06/25/25 19:49 Last Admin: 06/25/25 18:21 Dose: 120 mls/hr Documented By: MARYBETH Labetalol HCl (Labetalol Inj 5 Mg/Ml Vial 20 Ml) 10 mg IVP X1 ONE Stop: 06/25/25 05:34 Last Admin: 06/25/25 05:38 Dose: 10 mg Documented By: MADELINE Labetalol HCl (Labetalol Inj 5 Mg/Ml Vial 20 Ml) 10 mg IVP Q4H PRN PRN Reason: SBP > 180 Stop: 07/25/25 08:16 Last Admin: 06/25/25 08:37 Dose: 10 mg Documented By: NAVDEEP Levetiracetam (Levetiracetam Inj 100 Mg/Ml Vial 5ml) 1,000 mg IVP X1 ONE Stop: 06/25/25 01:14 Last Admin: 06/25/25 01:34 Dose: 1,000 mg Documented By: MADELINE Levetiracetam (Levetiracetam Inj 100 Mg/Ml Vial 5ml) 500 mg IVP Q12HR ALEX Stop: 07/25/25 08:59 Last Admin: 06/25/25 20:46 Dose: 500 mg Documented By: Admin: 06/25/25 08:40 Dose: 500 mg Documented By: NAVDEEP Levetiracetam (Levetiracetam Inj 100 Mg/Ml Vial 5ml) 500 mg IV X1 ONE Stop: 06/25/25 21:28 Last Admin: 06/25/25 22:01 Dose: 500 mg Documented By: ME See above if any Consultations Consultation(s) initiated? (list below): Yes Consultation #1 (Physician, Specialty, Details): Discussed with Hospitalist for admission. Reviewed the patient?s HPI, PMHx, lab and/or radiology results. Discussed treatment plan. Time: 05:45 Diagnosis Differential diagnosis altered mental status: altered mental status, delirium, dementia, hypoglycemia, hyponatremia, subarachnoid hemorrhage and sepsis Most likely diagnosis given after review of the tests above:: Overmedication/ Medication side affect Admission Indicated Admission indicated?: indicated Admission Request Was there a request for admission?: Yes Admission Attestation Admission request attestation: Discussed case with [] from Hospitalist service regarding admission. Discussed patients ED course, exam findings, labs, and radiology results. The Hospitalist [agrees,declines] to accept the patient for admission. Disposition Plan Disposition Plan: Admit Discharge Plan Plan Patient Disposition: Admit Acute Care w/in Hospital Problem List Clinical Impression: Altered mental status
[2025-06-25 02:52] LABS: Acetaminophen 2.8 mcg/mL (10.0-20.0); Alanine Aminotransferase 8 U/L (10-49); Albumin, Serum 3.6 gm/dL (3.4-4.8); Albumin/Globulin Ratio 2.1 (1.2-2.2); Alcohol, Blood Medical < 3.0 mg/dL (0-10.0); Alkaline Phosphatase 111 U/L (46-116); Ammonia < 10 uMol/L (11-32); Anion Gap 15 (7-16); Aspartate Amino Transferase 17 U/L (0-34); BUN/Creatinine Ratio 5 Ratio (12-20); Bilirubin,Total 0.3 mg/dL (0.3-1.2); Blood Urea Nitrogen 21 mg/dL (9-23); Calcium 7.8 mg/dL (8.3-10.6); Calcium (Corrected) 8.1 mg/dL (8.5-10.1); Carbon Dioxide 19.4 mMol/L (20.0-31.0); Chloride 108 mMol/L (98-107); Creatinine (Component) 3.9 mg/dL (0.6-1.3); Estimated Creatinine Clearance 14.7 mL/min (>60); Globulin 1.7 gm/dL (2.3-3.5); Glucose 131 mg/dL (74-106); Magnesium 1.6 mg/dL (1.6-2.6); Osmolality,Calculated 288 (275-295); Phenytoin (Dilantin) < 2.0 mcg/mL; Potassium 4.0 mMol/L (3.4-5.1); Salicylate < 3.0 mg/dL; Sodium 142 mMol/L (136-145); Thyroid Stimulating Hormone 0.56 uIU/mL (0.55-4.78); Total Protein 5.3 gm/dL (5.7-8.2); Troponin I < 0.020 ng/mL (0.0-0.045); eGFR 12 See Note
[2025-06-25 02:57] LABS: Basophils # (Auto) 0.1 Thou/mm3 (0.0-0.2); Basophils % (Auto) 1 % (0-2.5); Eosinophils # (Auto) 0.1 Thou/mm3 (0.0-0.5); Eosinophils % (Auto) 1 % (0-10); Hematocrit 30.2 % (36.0-46.0); Hemoglobin 9.4 g/dL (12.0-16.0); Immature Granulocytes Auto 0.12 Thou/mm3 (0.00-0.00); Lymphocytes # (Auto) 1.4 Thou/mm3 (1.0-4.8); Lymphocytes % (Auto) 13 % (10-50); Mean Corpuscular HGB Conc 31.1 g/dl (31.0-37.0); Mean Corpuscular Hemoglobin 28.8 pg (25.0-35.0); Mean Corpuscular Volume 93 fL (80-100); Monocytes # (Auto) 0.7 Thou/mm3 (0.0-0.8); Monocytes % (Auto) 7 % (0-12); Neutrophils # (Auto) 8.1 Thou/mm3 (1.8-7.7); Neutrophils % (Auto) 77 % (37-80); Nucleated Red Blood Cell # 0.00 Thou/mm3 (0.00-0.00); Nucleated Red Blood Cell % 0 /100 WBC (0); Platelet Count 213 Thou/mm3 (140-440); RDW Standard Deviation 53.9 fL (36.4-46.3); Red Blood Count 3.26 Miln/mm3 (4.00-5.20); White Blood Count 10.5 Thou/mm3 (3.6-11.0)
--- NOTE | 2025-06-25 03:27 | PRELIM_ITS ---
CT scan of the head without intravenous contrast (axial sections with sagittal and coronal reformats) June 25, 2025 0228 hours. Clinical history: AMS Reference is made to the prior report dated February 19, 2025 (prior images are not available at the time of interpretation). Findings: The evaluation is slightly limited due to motion artifacts. There is no definitive evidence of acute intracranial hemorrhage, mass effect or midline shift. Again seen is hypodensity along the right transverse sinus measuring 1.2 cm, also described in the prior report. There are periventricular white matter hypodensities, compatible with chronic small vessel ischemia. No definitive wedge shaped acute infarcts are detected. Please note that subtle early infarcts are better assessed using diffusion weighted MR imaging if clinically indicated. There is mild volume loss. There is atheromatous calcification of the intracranial arteries. The calvarium is unremarkable. The mastoid air cells and the visualized paranasal sinuses are clear. Impression: No definitive evidence of acute intracranial hemorrhage, mass effect or midline shift. If there are persistent clinical symptoms or additional clinical concerns consider an MRI. Hypodensity along the right transverse sinus (1.2 cm), also described in the prior report. Suggest comparison with images from prior studies. Report Electronically Signed By: Michele Arizmendi 06/25/2025 3:26:42 AM [EST]
[2025-06-25] MEDS: SODIUM CHLORIDE 0.9% 1000 ML 1,000 ML IV (03:34)
[2025-06-25 05:26] LABS: Amphetamine/Methamp Scrn,U Negative (Negative); Barbiturate Screen,Urine Negative (Negative); Benzodiazepines Screen,Urine Negative (Negative); Benzoylecgonine Screen, Ur Negative (Negative); Fentanyl Screen,Urine Negative (Negative); Opiate Screen,Urine Negative (Negative); THC Screen,Urine Negative (Negative)
[2025-06-25] MEDS: LABETALOL INJ 5 MG/ML VIAL 20 ML 10 MG IVP ×4 (05:38→20:18)
[2025-06-25 06:50] LABS: Creatine Kinase 147 U/L (34-171)
--- NOTE | 2025-06-25 08:00 | PC.NURSE ---
In to assess pt. Pt resting quietly at this time. Daughter at bedside. Dr Griffith at bedside to evaluate. noted BP 190's/110's. Provider aware and states he will put in medication orders. Plan for dialysis later today.
[2025-06-25] MEDS: levETIRAcetam INJ 100 MG/ML VIAL 5ML 500 MG IVP ×2 (08:40→20:46)
--- NOTE | 2025-06-25 08:45 | PC.NURSE ---
Dr Flores at bedside to assess.
--- NOTE | 2025-06-25 09:00 | PC.NURSE ---
Pt not alert enough to safely swallow PO meds at this time, Dr Flores at bedside and acknowledges.
--- NOTE | 2025-06-25 10:15 | ESHP_ITS ---
<Statement entered by Willem Olivier MD - 06/25/25 15:42> I have reviewed the note and agree with the resident's assessment & plan with exceptions as below. I have personally reviewed labs, imaging, home meds/prior records, examined the patient, formulated and discussed management plan with my attending 64-year-old female with past medical significant for hypertension, ESRD on on hemodialysis Monday/Monday/Monday with Dr Awad, CAD s/p CABG 2023, third- degree AV block s/p pacemaker placement (10/22, Dr Mehta), recurrent UTIs, type 2 diabetes mellitus, seizures, and PRES syndrome was admitted to hospital on 06/25/2025 due to acute encephalopathy. Patient came in with to the ER brought in by daughter who stated that around Monday afternoon patient got her Xanax as well as marijuana and a pain pill for which afterwards she started to be more confused and less responsive. Patient was recently discharged on 05/30/2025 due to similar symptoms. Patient also noted to be very hypertensive. Daughter states that normally when she is super hypertensive like this in the 200 that she also becomes altered. Otherwise no nausea, vomiting, chest pain, or any blood in the stool. During my assessment patient was somnolent, but easily arousable and AO x 2 (not to time). She did follow simple commands, but unable to pass the swallow screen. Later in the afternoon patient had a rapid response called during dialysis due to seizure-like activity. Repeat labs were ordered and neurology was made aware. At this time ordered EEG patient is troponins negative and ABG fairly unremarkable. Imaging during the rapid included chest x-ray was unremarkable. In summary: #Acute encephalopathy #Hypertensive urgency #Polypharmacy #PRES syndrome #Seizures EEG ordered IV labetalol 10 mg IV every 4 IV Keppra 500 mg twice daily and Ativan 2 mg every 15 minutes as needed for seizure-like activity Speech therapy ordered Telemetry floor Neurology consulted #ESRD Nephrology on board Continue with hemodialysis as scheduled Willem Olivier PGY2 Disclaimer: Even though this this note was dictated by speech recognition and even though it was carefully revised there may still be minor errors in watch crystal molder due to voice recognition software. Documentation for date of: 06/25/25 HPI History of Present Illness Chief complaint: Altered mentation History of present illness: History of present illness: Patient is a 64 yo F with PMH of DM, ESRD, HTN, seizure disorder, CVA, CAD with open heart surgery, bradycardia with pacemaker, press syndrome x 3 presenting to the ED on 06/25/2025 for altered mentation with somnolence. Per daughter, patient had been recently prescribed Xanax and had been taking them regularly; she also used marijuana as an appetite stimulant, and there are prescriptions for Gaines for this patient from this year. After patient had taken Xanax, with THC and a pain pill patient presented to [facility] ED on 06/24/2025 for altered mentation; she was thereafter discharged home. Around midnight on 06/25/2025, the family brought her back as she was quite somnolent and minimally responsive to the daughter. No fever, chills, vomiting, or urinary symptoms. ED course: Patient was hypertensive on arrival, given hydralazine 10 and labetalol 10; she was then given normal saline and loaded with Keppra due to her seizure-like activity (myoclonic jerks of upper and lower extremities). EKG only shows evidence of left ventricular hypertrophy. No CT brain shows no mass lesions, hemorrhage, or midline shift. eGFR 12, CO2 of 19.4. Patient admitted for workup of somnolence/altered mentation. At 12:05, patient had rapid response for seizure-like activity while at dialysis; neurology consulted and ordered EEG. CXR, EKG, labs, and ABG unremarkable, troponins negative; patient was moved to telemetry. PMH: DM, ESRD, HTN, seizure disorder, CVA, CAD with open heart surgery, bradycardia with pacemaker, press syndrome x 3 PSH: Hysterectomy, section x 3, open heart surgery, cholecystectomy, gastric bypass Allergies: NKDA Social history: Endorses use of marijuana Review of Systems Review of Systems Narrative Review of Systems: General: Denies fevers or chills HEENT: Denies congestion or sore throat Heart: Denies chest pain or palpitations Lungs: Denies shortness of breath or cough Abdomen: Denies diarrhea, nausea or vomiting, constipation, BRBPR, melena Genitourinary: Denies frequency, urgency, dysuria, hematuria Musculoskeletal: Denies joint pain, denies muscular pain Neurology: Denies numbness, tingling; altered mentation. ROS otherwise negative except what is mentioned above. Note: ROS given by daughter due to patient's altered mentation. Exam Vital Signs Temp Pulse Resp BP Pulse Ox O2 Del Method 98.4 F 71 16 179/94 H 95 Room Air 06/25/25 10:10 06/25/25 10:10 06/25/25 10:10 06/25/25 10:10 06/25/25 10:10 06/25/25 10:10 Narrative Exam General: A/O x3 but very somnolent, diffcult to arouse, no acute distress, well- nourished, well-developed Eyes: PERRL, EOMI. Anicteric, vision grossly intact. Ears: No ear pain, no ear discharge, Hearing grossly intact. Nose: No nasal discharge. Mouth/Throat: Moist mucous membranes, no redness, no lesions. Neck: Neck supple, non-tender, no cervical lymphadenopathy. Lungs: Clear KEENAN to auscultation and percussion, No accessory muscle use. Cardio: Normal S1/S2, regular rhythm, no murmurs, no JVD or carotid bruits. Abdomen: Soft, non-tender, no palpable masses, peristalsis present, no guarding or rebound. Extremities: Symmetrical, no significant deformities, no peripheral edema , non-tender, peripheral pulses present. Skin: No rashes, no lesions, warm to touch. Neuro: No focal neurological deficits. Difficult to arouse, requires frequent prompting to follow commands, but does so. Psych: Cooperative, appropriate mood and effect. Results: Labs 06/26/25 05:40 06/26/25 05:40 Labs: Short CBC 06/25/25 Range/Units 02:03 WBC 10.5 (3.6-11.0) Thou/mm3 Hgb 9.4 L D (12.0-16.0) g/dL Hct 30.2 L (36.0-46.0) % Plt Count 213 D (140-440) Thou/mm3 BMP 06/25/25 02:03 Sodium 142 Potassium 4.0 Chloride 108 H Carbon Dioxide 19.4 L BUN 21 Creatinine 3.9 H Glucose 131 H Calcium 7.8 L Cardiac Enzymes 06/25/25 06/25/25 Range/Units 02:03 06:14 Total Creatine Kinase 147 (34-171) U/L Troponin I < 0.020 (0.0-0.045) ng/mL Liver Function 06/25/25 Range/Units 02:03 Total Bilirubin 0.3 (0.3-1.2) mg/dL AST 17 (0-34) U/L ALT 8 L (10-49) U/L Alkaline Phosphatase 111 D (46-116) U/L Albumin 3.6 D (3.4-4.8) gm/dL Quality Measures Quality Measures none Medications Home Medications and Allergies Home Medications ?Medication ?Instructions ?Recorded ?Confirmed ?Type aspirin 81 mg tablet,delayed 81 mg PO HS 11/28/2405/29 History release (Adult Low Dose Aspirin) atorvastatin 40 mg tablet 40 mg PO HS 11/28/24 5 History clopidogrel 75 mg tablet 75 mg PO HS 11/28/24 5 History duloxetine 30 mg capsule,delayed 30 mg PO BID 11/28/24 06/25/25 History release (Cymbalta) linagliptin 5 mg tablet (Tradjenta) 5 mg PO HS 5 06/25/25 History ascorbate calcium (vitamin C) 500 1 g PO HS 12/01/24 1 History mg tablet meclizine 25 mg tablet 25 mg PO PRN PRN dizziness 0 01/08/25 06/25/25 History alprazolam 1 mg tablet 0.25 mg PO PRN PRN anxiety 0 02/19/25 06/25/25 History cetirizine 10 mg capsule (All Day 10 mg PO QDAY 06/25/25 History Allergy (cetirizine)) metoclopramide HCl 10 mg tablet 10 mg PO Q4H PRN nause a 02/19/25 06/25/25 History (Reglan) pantoprazole 40 mg tablet,delayed 40 mg PO HS 02/19/25 06/25/25 History release sevelamer carbonate 800 mg tablet 800 mg PO TID 06/25/25 History (Renvela) docusate sodium 100 mg capsule 100 mg PO BID 05/28/25 06/25/25 History labetalol 100 mg tablet 50 mg PO DAILY PRN blood pre ssure 05/28/25 06/25/25 History levetiracetam 500 mg 1,000 mg PO .PM 05/28/25 History tablet,extended release 24 hr midodrine 5 mg tablet 10 mg PO TID PRN low blood p ressure 05/28/25 06/25/25 History ropinirole 0.25 mg tablet 0.25 mg PO HS 05/28/2506/25 History Allergies Allergy/AdvReac Type Severity Reaction Status Date / Time No Known Allergies Allergy Verified 06/24/25 12:31 Visit Medications Acetaminophen (Acetaminophen 325 Mg Tablet) 650 mg PO Q6H PRN PRN Reason: PAIN OR FEVER > 101 Stop: 07/25/25 08:15 Aspirin (Aspirin Ec 81 Mg Tabec) 81 mg PO QDAY ALEX On Hold: 06/25/25 09:40 Stop: 07/25/25 08:59 Last Admin: 06/25/25 09:02 Dose: Not Given Clopidogrel Bisulfate (Clopidogrel Bisulfate 75 Mg Tablet) 75 mg PO QDAY ALEX On Hold: 06/25/25 09:40 Stop: 07/25/25 08:59 Last Admin: 06/25/25 09:03 Dose: Not Given Dextrose (Dextrose 50%-Water Inj 50 Ml Syringe) 25 ml IV Q15MIN PRN PRN Reason: BG 50-70 responsive npo pt Stop: 07/25/25 09:39 Dextrose (Dextrose 50%-Water Inj 50 Ml Syringe) 50 ml IV Q15MIN PRN PRN Reason: BG <50 OR BG <70 & pt unresponsive Stop: 07/25/25 09:39 Glucagon (Glucagon Inj 1 Mg Vial) 1 mg IM Q15MIN PRN PRN Reason: BG <70, and no IV access Insulin Human Lispro (Insulin Lispro (Admelog) 1 Unit/0.01 Ml Unit) 0 unit SC Q6H ALEX; Protocol Stop: 07/25/25 09:44 Labetalol HCl (Labetalol Inj 5 Mg/Ml Vial 20 Ml) 10 mg IVP Q4H PRN PRN Reason: SBP > 180 Stop: 07/25/25 08:16 Last Admin: 06/25/25 08:37 Dose: 10 mg Levetiracetam (Levetiracetam Inj 100 Mg/Ml Vial 5ml) 500 mg IVP Q12HR ALEX Stop: 07/25/25 08:59 Last Admin: 06/25/25 08:40 Dose: 500 mg Ondansetron HCl (Ondansetron Inj 2 Mg/Ml Inj 2 Ml) 4 mg IV Q6H PRN; Protocol PRN Reason: NAUSEA OR VOMITING Stop: 07/25/25 08:15 Pantoprazole Sodium (Pantoprazole Inj 40 Mg Vial) 40 mg IVP QDAY ALEX Stop: 07/25/25 08:59 Last Admin: 06/25/25 08:41 Dose: 40 mg Sennosides (Senna Tablet) 2 tab PO BID PRN; Protocol PRN Reason: CONSTIPATION Stop: 07/25/25 08:59 Discontinued Medications Hydralazine HCl (Hydralazine Inj 20 Mg/Ml Vial) 10 mg IVP X1 ONE Stop: 06/25/25 01:14 Last Admin: 06/25/25 01:35 Dose: 10 mg Sodium Chloride (Ns) 1,000 mls @ 1,000 mls/hr IV .Q1H ONE Stop: 06/25/25 02:44 Last Infusion: 06/25/25 04:34 Dose: Infused Labetalol HCl (Labetalol Inj 5 Mg/Ml Vial 20 Ml) 10 mg IVP X1 ONE Stop: 06/25/25 05:34 Last Admin: 06/25/25 05:38 Dose: 10 mg Levetiracetam (Levetiracetam Inj 100 Mg/Ml Vial 5ml) 1,000 mg IVP X1 ONE Stop: 06/25/25 01:14 Last Admin: 06/25/25 01:34 Dose: 1,000 mg Assessment & Plan Plan Patient is a 64-year-old female with past medical history of DM, ESRD, HTN, seizure disorder, CVA, CAD with open heart surgery, bradycardia with pacemaker, press syndrome x 3 presenting to the hospital for altered mentation/somnolence/difficulty to arouse on 06/25/2025; patient was admitted for altered mentation. #Acute encephalopathy #? Polypharmacy Family states that she has had this difficulty to arouse for a few days, after she had taken Xanax and a pain pill . Of note family endorses use of marijuana for appetite stimulation, and pharmacy notes history of previous Gaines prescription this year. Patient is likely not septic, while the blood pressure is elevated, they are not tachycardic or tachypneic or have a fever; admission WBCs were 14.2. CT head negative for hemorrhage, mass effect or midline shift. Plan: Neurology consulted, appreciate recommendations EEG ordered Speech therapy consulted #Hypertensive emergency #Hypertensive encephalopathy #History of HTN Patient blood pressure roxy to 204/109 in the ED; treated with labetalol and hydralazine. Latest BP is 153/97. Patient likely did not have hypertensive emergency as she has potential for polypharmacy which would cause altered mentation. Plan: Labetalol 10 every 4 as needed for SBP greater than 180 Trend BP Consult nephorology Stool occult blood #ESRD #Seizure disorder #DM #Bradycardia with pacemaker #PRES syndrome #CAD #CVA Plan: Hemodialysis as scheduled, avoid nephrotoxic agents, renally dose meds Aspirin and Plavix held in context of acute encephalopathy Keppra 500 twice daily restarted Seizure precautions placed Ativan 2 prn Q15min seizure activity Metoclopramide started Disposition: Med-Tele DVT prophylaxis: SCD GI prophylaxis: Protonix 40 twice daily Diet: N.p.o. Lines: PIV, dialysis catheter CODE STATUS: Full code This case was discussed with my attending physician, Dr. Osullivan, and senior resident, Dr. Flores. Gonzalez Villagran MD-PhD, PGY1 Attending Provider Attestation/Addendum I, Lenore Osullivan DO, attest that I was physically present for the [place] portions of the service and evaluated the patient with the resident and I reviewed and discussed the case with the resident and agree with the resident's findings and plans of care as documented above Patient is a 64 female with, states dyspnea, status third-degree AV block s/p PPM recurrent UTIs, type 2 diabetes and seizures who was brought to the ED due to encephalopathy patient has been less responsive at home and was noted to have reported seizure-like activity. Patient was recently started on Xanax due to anxiety and insomnia. She was also been taking a supposed pain pill as well. Patient was sent to ED by neurology due to altered mental status. CT head was done in the ED showing no acute intracranial findings. Patient was noted to have significantly elevated BP of 204/109 in the ED. Patient has had previous episodes of hypertensive encephalopathy in the past. However, patient was brought to dialysis from ED during which patient was noted to have seizure like activity and was less responsive. SBP was noted to drop too 100s. Patient appeared postictal and was able to respond to her name and simple questions. Case discussed with neurology, recommends EEG at this time. Case was also discussed with nephrology, suspects polypharmacy as cause for acute encephalopathy. Will slowly decrease BP due to hypertensive encephalopathy and PO antihypertensives once she is more alert. Patient was admitted to med/tele, will transfer to telemetry for closer monitoring and further w/u and management of acute encephalopathy.
--- NOTE | 2025-06-25 11:00 | PC.NURSE ---
REPORT CALLED TO [facility]AL [facility], DIALYSIS NURSE HERE FOR PT, PT GOING TO DIALYSIS THEN TO ADMIT ROOM. ADMIT NURSE RECEIVING PT AWARE.
[2025-06-25] MEDS: HEPARIN SOD INJ 1000 UNIT/ML VIAL 10 ML 3300 UNIT INDWELLCAT ×2 (12:05→12:06)
--- NOTE | 2025-06-25 12:17 | EKG_ITS ---
[facility] Test Date: 2025-06-25 Pat Name: KAREN BARNES Department: Room: S359A Gender: Female Human Capital Manager: KIRTIDoris : 1960 Requested By: Nannette Acevedo Order Number: [id number] Reading MD: Nannette Acevedo Measurements Intervals [place] Rate: 82 P: 59 OK: 156 QRS: -13 QRSD: 94 T: -17 QT: 391 QTc: 459 Interpretive Statements SINUS RHYTHM POSSIBLE LEFT ATRIAL ENLARGEMENT POSSIBLE RIGHT VENTRICULAR CONDUCTION DELAY POSSIBLE LEFT VENTRICULAR HYPERTROPHY ST DEVIATION AND MODERATE T-WAVE ABNORMALITY, CONSIDER ANTEROLATERAL ISCHEMIA Compared to ECG 06/25/2025 02:03:37 T-wave abnormality now present Possible ischemia now present ST (T wave) deviation no longer present Myocardial infarct finding no longer present /store/S0/[id number].pdf
--- NOTE | 2025-06-25 12:18 | XR_ITS ---
EXAMINATION: AP chest single view TECHNIQUE: AP portable upright chest single view Date and time: June 23, 2025, 1236 hours, comparison March 13, 2025 INDICATIONS: Choking shortness of breath today. FINDINGS: No aspiration pneumonia Normal heart size Median sternotomy wires Cardiac leads satisfactory position as well as right internal jugular dialysis catheter Prominent osteopenia IMPRESSION: Negative for aspiration pneumonia
[2025-06-25 12:34] LABS: Base Excess -3 (-3-3); HCO3 23 mEq/L (20-26); Inspired O2, VO2 Liters 5 L/min; O2 Saturation 98 % (91-98); PCO2 43 mmHg (32.0-48.0); PO2 143 mmHg (83-108); pH, Arterial 7.33 (7.35-7.45)
[2025-06-25 12:35] LABS: Allen Test Performed/OK; Puncture Site Right Radial
[2025-06-25 13:29] LABS: Albumin, Serum 4.1 gm/dL (3.4-4.8); Anion Gap 13 (7-16); BUN/Creatinine Ratio 7 Ratio (12-20); Blood Urea Nitrogen 27 mg/dL (9-23); Calcium 9.0 mg/dL (8.3-10.6); Calcium (Corrected) 9.0 mg/dL (8.5-10.1); Carbon Dioxide 23.3 mMol/L (20.0-31.0); Chloride 104 mMol/L (98-107); Creatinine (Component) 4.0 mg/dL (0.6-1.3); Estimated Creatinine Clearance 14.4 mL/min (>60); Glucose 180 mg/dL (74-106); Osmolality,Calculated 289 (275-295); Phosphorous 4.7 mg/dL (2.4-5.1); Potassium 4.5 mMol/L (3.4-5.1); Sodium 140 mMol/L (136-145); Troponin I < 0.020 ng/mL (0.0-0.045); eGFR 12 See Note
--- NOTE | 2025-06-25 14:47 | PC.SS ---
This [employer] internet database specialist attempted to make contact with patient for initial assessment, patient was no longer in ER was informed by UC patient was admitted to different floor.
--- NOTE | 2025-06-25 17:06 | EVENTNT_ITS ---
Documentation for date of: 06/25/25 Event Note Event Note: Rapid response was called at 12:05 PM, patient had initiated dialysis, patient became unresponsive to painful stimuli, had an acute change in consciousness, patient had systolic blood pressure in the 190s prior to hemodialysis as soon as dialysis was initiated within 25 minutes blood pressure dropped to 107/61, temperature 96.2 F, apparently patient had seizure-like activity with jerking movements and becoming nonresponsive, likely secondary to postictal state, RN was concerned as patient's face looked cyanosed during the episode, at the time of arrival patient was still somnolent and postictal phase, maintaining her air way, able to stick her tongue out, was not able to follow commands but had nonpurposeful movements of bilateral upper extremities, noted to be sweating and diaphoretic, dialysis was immediately stopped, fingerstick blood glucose was ordered, patient was put on OxyMask, head of bed was elevated, repeat blood pressure improved to 137/80, repeat saturation 98%, ABG was ordered, pH 7.33 pCO2 43, pO2 143, attending Dr. Osullivan reached out to neurologist Dr. Chan who recommended getting an EEG, apparently patient has had seizure-like activity in the past where she becomes nonresponsive, patient is already on home medication Keppra, was given IV Keppra 5 mg prior to hemodialysis, less likely requiring redosing as patient was only 25 minutes into the hemodialysis. Pending neurology recommendations. Patient was upgraded to telemetry. Plan of care discussed with attending Dr. Shi Acevedo PGY3
--- NOTE | 2025-06-25 18:09 | ECHO_ITS ---
Patient Info Name: Edita Carmona Age: 64 years : 1960 Gender: Female Ht: 165 cm Wt: 67 kg BSA: 1.76 m2 BP: 154 / 90 mmHg HR: 88 bpm Exam Date: 06/26/2025 3:16 PM Admit Date: 06/25/2025 Site: [facility] Room Number: [id number] Patient Status: I Technical Quality: Poor Exam Type: CA echo doppler complete Reason for Poor Study: poor patient cooperation, body habitus Editing Clerk: Kateryna Hartmann Ordering Physician: Nannette Acevedo Study Info Indications staph bactermia, TDC, r/o vegitations - Primary Location: S2NX Left Ventricular Outflow Tract Name Value Normal LVOT 2D LVOT Diameter 1.9 cm LVOT Doppler LVOT Peak Velocity 124 cm/s LVOT Mean Gradient 3 mmHg LVOT VTI 25 cm LVOT VTI/AV VTI Ratio 0.8 LVOT Stroke Volume 72 ml Pulmonic Valve Name Value Normal PV Doppler PV Peak Velocity 100 cm/s Mitral Valve Name Value Normal MV Doppler MV Mean Gradient 3 mmHg MV Decel Ziebach 603 cm/s2 MV PHT 33 ms MV Area (PHT) 6.7 cm2 4.0-5.0 MV Area (Cont Eq VTI) 1.6 cm2 MV Diastolic Function MV E Peak Velocity 68 cm/s MV A Peak Velocity 106 cm/s MV E/A 0.6 Tricuspid Valve Name Value Normal TV Regurgitation Doppler TR Peak Velocity 182 cm/s Estimated PAP/RSVP RA Pressure 8 mmHg <=5 PA Systolic Pressure 21 mmHg <36 RV Systolic Pressure 21 mmHg <36 Aortic Valve Name Value Normal AV 2D/MM AV Cusp Sep (MM) 1.4 cm AV Doppler AV Peak Velocity 166 cm/s AV Mean Gradient 6 mmHg AV VTI 33 cm AV Area (Cont Eq VTI) 2.2 cm2 >=3.0 AV Area (Cont Eq Rafael) 2.1 cm2 AV DI (Rafael) 0.75 AV Regurgitation 2D LVOT Area 2.8 cm2 Ventricles Name Value Normal LV Dimensions 2D/MM IVS Diastolic Thickness (2D) 1.1 cm 0.6-0.9 LVID Diastole (2D) 4.7 cm 3.8-5.2 LVIW Diastolic Thickness (2D) 1.1 cm 0.6-0.9 LVID Systole (2D) 3.0 cm 2.2-3.5 LVOT Diameter 1.9 cm LV Mass (2D Cubed) 187.54 g 67.00-162.00 LV Mass Index (2D Cubed) 107 g/m2 43-95 Relative Wall Thickness (2D) 0.47 <=0.42 IVS/LVIW Diastolic Thickness (2D) 1.00 0.00-1.50 LV Fractional Shortening/Ejection Fraction 2D/MM LV Fractional Shortening (2D) 36 % 27-45 LV EF (2D Teichholz) 66 % Atria Name Value Normal LA Dimensions LA Volume (4C A-L) 40 ml LA Volume (BP A-L) 48 ml Left Ventricle Left ventricular chamber dimension is normal. Left ventricular systolic function is normal with visually estimated ejection fraction of 55-60%. There is moderate concentric hypertrophy noted in the left ventricle. Left ventricular segmental wall motion is normal. There is grade I diastolic dysfunction in the left ventricle. Right Ventricle Right ventricular chamber dimension is normal. Right ventricular systolic function is normal. Left Atrium Left atrial chamber dimension is normal. Right Atrium Right atrial chamber dimension is normal. Aortic Valve The aortic valve is trileaflet. There is mild aortic valve sclerosis. There is no aortic valve stenosis with a peak velocity of 166 cm/s, mean gradient of 6 mmHg, and aortic valve area of 2.2 cm2. There is no aortic valve regurgitation. Pulmonic Valve The pulmonic valve is normal. There is no pulmonic valve stenosis. There is no pulmonic regurgitation. Mitral Valve The mitral valve has normal leaflets. There is no mitral valve stenosis. There is trace mitral valve regurgitation. Tricuspid Valve The tricuspid valve leaflets are normal. There is no tricuspid valve stenosis. There is mild tricuspid valve regurgitation. No pulmonary hypertension, estimated pulmonary arterial systolic pressure is 21 mmHg and systemic blood pressure of 154 mmHg in systole. Pericardium/Pleural The pericardium appears normal. There is no pericardial effusion. No pleural effusion visualized. Inferior Vena Cava Normal inferior vena cava with >50% collapse upon inspiration consistent with normal right atrial pressure, 8 mmHg. Aorta The aortic measurements are indexed to age and body surface area. The aortic root at the sinus of Valsalva is not well visualized. The prox ascending aorta is not well visualized. Summary 1. Left ventricle size is normal and systolic function is normal. Visually estimated ejection fraction is 55-60%. There is grade I diastolic dysfunction.There is moderate concentric hypertrophy noted. 2. Right ventricle size is normal and systolic function is normal. Estimated RVSP is 21 mmHg. 3. There is mild aortic valve sclerosis with no stenosis and no regurgitation. 4. There is mild tricuspid valve regurgitation. 5. Normal IVC with estimated RA pressure 8 mmHg. Report Signatures Finalized by Zaheer Marks on 06/26/2025 08:46 PM
[2025-06-25] MEDS: VANCOMYCIN/WATER 1250 MG IVPB 250 ML 120 MG IV (18:21)
[2025-06-25] MEDS: levETIRAcetam INJ 100 MG/ML VIAL 5ML 500 MG IV (22:01)
[2025-06-25] MEDS: hydrALAZINE INJ 20 MG/ML VIAL 10 MG IV (22:14)
--- NOTE | 2025-06-25 22:23 | PD.NEUROPROG ---
Documentation for date of: 06/25/25 Subjective Subjective Interval history: Patient is in [facility] with her at the bedside. No seizures or myoclonic jerks after admission reported. However, she keeps her eyes closed tight but answers simple questions some times, Generalized weakness noted. Exam - Neurology Vital Signs Temp Pulse Resp BP Pulse Ox O2 Del Method O2 Flow Rate 97.5 F 74 17 159/94 H 99 Nasal Cannula 2 06/25/25 20:45 06/25/25 22:14 06/25/25 21:49 06/25/25 22:14 06/25/25 21:49 06/25/25 21:49 06/25/25 21:49 Narrative Exam GENERAL APPEARANCE: Well developed, well-nourished in no acute distress. HEENT: Normocephalic, atraumatic, extraocular movements intact. Pupils: Equal reacting to light and accommodation NECK: Supple, no JVD or bruits. CARDIOVASULAR: Heart: S1, S2 heard, irregular without S3-S4 or murmur no rubs or gallops. LUNGS/CHEST: Clear to auscultation bilaterally. No rails, rhonchi, or wheezing. Normal inspection. ABDOMEN: Soft, nontender, with normal bowel sounds. No pulsatile masses. No rebound, rigidity, or guarding. Normal inspection and palpation. EXTREMITIES: Normal inspection and palpation. No edema, clubbing or cyanosis. SKIN: Warm and dry without rashes. Normal inspection. MUSCULOSKELETAL: No cervical, thoracic, lumbar or midline bony tenderness. Normal inspection. NEURO: Lethargic, but arousable to some extent, Brainstem: function intact grossly. NO focal deficit noted. Gait: not tested. No signs of meningeal irritation noted. PSYCHIATRIC: limited Objective Labs 06/25/25 02:03 06/25/25 12:41 Labs: Laboratory Results - last 24 hr 06/25/25 06/25/25 06/25/25 02:03 05:00 06:14 WBC 10.5 RBC 3.26 L Hgb 9.4 L D Hct 30.2 L MCV 93 MCH 28.8 MCHC 31.1 RDW Std Deviation 53.9 H Plt Count 213 D Neut % (Auto) 77 Lymph % (Auto) 13 [place] % (Auto) 7 Eos % (Auto) 1 Baso % (Auto) 1 Neut # (Auto) 8.1 H Lymph # (Auto) 1.4 [place] # (Auto) 0.7 Eos # (Auto) 0.1 Baso # (Auto) 0.1 Immature Gran # (Auto) 0.12 H Absolute Nucleated RBC 0.00 Immature Gran % 1 H Nucleated RBC % 0 Puncture Site ABG pH ABG pCO2 ABG pO2 ABG HCO3 ABG O2 Saturation ABG Base Excess Oxygen Liter Flow Sodium 142 Potassium 4.0 Chloride 108 H Carbon Dioxide 19.4 L Anion Gap 15 BUN 21 Creatinine 3.9 H Estim Creat Clear Calc 14.7 L eGFR 12 L* BUN/Creatinine Ratio 5 L Glucose 131 H Calculated Osmolality 288 Calcium 7.8 L Corrected Calcium 8.1 L Phosphorus Magnesium 1.6 Total Bilirubin 0.3 AST 17 ALT 8 L Alkaline Phosphatase 111 D Ammonia < 10 L Total Creatine Kinase 147 Troponin I < 0.020 Total Protein 5.3 L Albumin 3.6 D Globulin 1.7 L Albumin/Globulin Ratio 2.1 TSH 0.56 Salicylates < 3.0 Urine Opiates Screen Negative Urine Fentanyl Screen Negative Acetaminophen 2.8 L Ur Barbiturates Screen Negative Phenytoin < 2.0 U Amphetamin/Meth Scrn Negative U Benzodiazepines Scrn Negative U Cocaine Metab Screen Negative U Marijuana (THC) Screen Negative Ethyl Alcohol < 3.0 06/25/25 06/25/25 12:30 12:41 WBC RBC Hgb Hct MCV MCH MCHC RDW Std Deviation Plt Count Neut % (Auto) Lymph % (Auto) [place] % (Auto) Eos % (Auto) Baso % (Auto) Neut # (Auto) Lymph # (Auto) [place] # (Auto) Eos # (Auto) Baso # (Auto) Immature Gran # (Auto) Absolute Nucleated RBC Immature Gran % Nucleated RBC % Puncture Site Right Radial ABG pH 7.33 L ABG pCO2 43 ABG pO2 143 H D ABG HCO3 23 ABG O2 Saturation 98 ABG Base Excess -3 Oxygen Liter Flow 5 Sodium 140 Potassium 4.5 D Chloride 104 Carbon Dioxide 23.3 Anion Gap 13 BUN 27 H Creatinine 4.0 H Estim Creat Clear Calc 14.4 L eGFR 12 L* BUN/Creatinine Ratio 7 L Glucose 180 H Calculated Osmolality 289 Calcium 9.0 Corrected Calcium 9.0 Phosphorus 4.7 Magnesium Total Bilirubin AST ALT Alkaline Phosphatase Ammonia Total Creatine Kinase Troponin I < 0.020 Total Protein Albumin 4.1 D Globulin Albumin/Globulin Ratio TSH Salicylates Urine Opiates Screen Urine Fentanyl Screen Acetaminophen Ur Barbiturates Screen Phenytoin U Amphetamin/Meth Scrn U Benzodiazepines Scrn U Cocaine Metab Screen U Marijuana (THC) Screen Ethyl Alcohol ABG Interpretation ABG results: 06/25/25 12:30 ABG pH 7.33 L ABG pCO2 43 ABG pO2 143 H D ABG HCO3 23 ABG O2 Saturation 98 ABG Base Excess -3 Assessment & Plan Assessment and plan (1) Altered mental status: Status: Acute Assessment and plan: Likely secondary to hypertensive encephalopathy. EEG findings show periodic generalized paroxysmal epileptiform discharges consistent with seizures. Will keep her on higher dose of Keppra and aggressive control of her blood pressure. Will follow-up with MRI brain to look for posterior reversible encephalopathy syndrome.
[2025-06-26] VITALS (32 sets, daily range): BP systolic 94–180; BP diastolic 60–102; PULSE 77–92; RESP 15–20; TEMP 36.3–37.1; O2SAT 96–98
[2025-06-26 06:38] LABS: Basophils # (Auto) 0.1 Thou/mm3 (0.0-0.2); Basophils % (Auto) 1 % (0-2.5); Eosinophils # (Auto) 0.2 Thou/mm3 (0.0-0.5); Eosinophils % (Auto) 1 % (0-10); Hematocrit 36.2 % (36.0-46.0); Hemoglobin 11.2 g/dL (12.0-16.0); Immature Granulocytes Auto 0.14 Thou/mm3 (0.00-0.00); Lymphocytes # (Auto) 1.6 Thou/mm3 (1.0-4.8); Lymphocytes % (Auto) 11 % (10-50); Mean Corpuscular HGB Conc 30.9 g/dl (31.0-37.0); Mean Corpuscular Hemoglobin 28.6 pg (25.0-35.0); Mean Corpuscular Volume 93 fL (80-100); Monocytes # (Auto) 1.3 Thou/mm3 (0.0-0.8); Monocytes % (Auto) 9 % (0-12); Neutrophils # (Auto) 11.4 Thou/mm3 (1.8-7.7); Neutrophils % (Auto) 78 % (37-80); Nucleated Red Blood Cell # 0.00 Thou/mm3 (0.00-0.00); Nucleated Red Blood Cell % 0 /100 WBC (0); Platelet Count 279 Thou/mm3 (140-440); RDW Standard Deviation 55.2 fL (36.4-46.3); Red Blood Count 3.91 Miln/mm3 (4.00-5.20); White Blood Count 14.6 Thou/mm3 (3.6-11.0)
[2025-06-26 07:23] LABS: Alanine Aminotransferase 8 U/L (10-49); Albumin, Serum 4.0 gm/dL (3.4-4.8); Albumin/Globulin Ratio 1.9 (1.2-2.2); Alkaline Phosphatase 124 U/L (46-116); Anion Gap 15 (7-16); Aspartate Amino Transferase 15 U/L (0-34); BUN/Creatinine Ratio 7 Ratio (12-20); Bilirubin,Total 0.3 mg/dL (0.3-1.2); Blood Urea Nitrogen 33 mg/dL (9-23); Calcium 9.3 mg/dL (8.3-10.6); Calcium (Corrected) 9.3 mg/dL (8.5-10.1); Carbon Dioxide 22.2 mMol/L (20.0-31.0); Cardiac Risk Estimate 4.3 RATIO (3.7-5.6); Chloride 104 mMol/L (98-107); Cholesterol 209 mg/dL (132-200); Creatinine (Component) 4.8 mg/dL (0.6-1.3); Estimated Creatinine Clearance 10.7 mL/min (>60); Globulin 2.1 gm/dL (2.3-3.5); Glucose 126 mg/dL (74-106); HDL Cholesterol 49 mg/dL (40-60); LDL Cholesterol,Calculated 133 mg/dL (0-130); Magnesium 2.0 mg/dL (1.6-2.6); Osmolality,Calculated 290 (275-295); Phosphorous 6.2 mg/dL (2.4-5.1); Potassium 4.8 mMol/L (3.4-5.1); Sodium 141 mMol/L (136-145); Total Protein 6.1 gm/dL (5.7-8.2); Triglycerides 134 mg/dL (30-150); eGFR 10 See Note
[2025-06-26 07:34] LABS: INR 0.9 (0.9-1.3); Prothrombin Time 9.9 Seconds (9.0-12.2)
[2025-06-26] MEDS: levETIRAcetam INJ 100 MG/ML VIAL 5ML 1000 MG IVP ×2 (08:31→20:33)
[2025-06-26] MEDS: ALBUMIN HUMAN-KJDA 25% IVPB 25 GM/100 ML BTL IV (10:01)
[2025-06-26 11:00] LABS: Hepatitis A Antibody IgM Non Reactive (Non React); Hepatitis B Core Antibody IgM Non Reactive (Non React); Hepatitis B Surface Ab NonReact(Not Immune) (Immune); Hepatitis B Surface Antigen Non Reactive (Non React); Hepatitis C Antibody Non Reactive (Non React)
[2025-06-26] MEDS: HEPARIN SOD INJ 1000 UNIT/ML VIAL 10 ML 3300 UNIT INDWELLCAT (12:03)
--- NOTE | 2025-06-26 15:17 | ESPR_ITS ---
<Statement entered by Willem Olivier MD - 06/26/25 15:39> I have reviewed the note and agree with the resident's assessment & plan with exceptions as below. I have personally reviewed labs, imaging, home meds/prior records, examined the patient, formulated and discussed management plan with my attending Patient was seen and examined at bedside morning. No acute overnight events. Neurology saw the patient and recommended increase Keppra dosage as well as aggressive BP control. Also ordered MRI brain which will be done tomorrow. Patient was getting hemodialysis this morning, still able to respond yeah with her close eyes which is unchanged from yesterday. Will continue with Keppra 1000 mg twice daily and started valsartan 40 mg daily for tighter blood pressure control along with as needed labetalol. Willem Olivier PGY2 Disclaimer: Even though this this note was dictated by speech recognition and even though it was carefully revised there may still be minor errors in retail leader due to voice recognition software. Documentation for date of: 06/26/25 Subjective Subjective Interval history: Patient was seen and examined at bedside today; no acute events overnight. EEG yesterday showed paroxysmal generalized periodic epileptiform discharges, which are consistent with hypertensive encephalopathy. Neurology recommends BP control to have systolic less than 140, increase Keppra to 1000 twice daily, and repeat EEG in 48 hours. Patient ANO x 0, mostly response to questions both from me and her with yeah . Exam Vital Signs Temp Pulse Resp BP Pulse Ox O2 Del Method O2 Flow Rate 98.7 F 88 15 161/85 H 98 Nasal Cannula 2 06/26/25 13:30 06/26/25 13:30 06/26/25 13:30 06/26/25 13:30 06/26/25 13:30 06/26/25 13:30 06/26/25 13:30 Narrative Exam General: A/O x0, no acute distress, well-nourished, well-developed Eyes: PERRL, EOMI. Anicteric, vision grossly intact. Ears: No ear pain, no ear discharge, Hearing grossly intact. Nose: No nasal discharge. Mouth/Throat: Moist mucous membranes, no redness, no lesions. Neck: Neck supple, non-tender, no cervical lymphadenopathy. Lungs: Clear [place] to auscultation and percussion, No accessory muscle use. Cardio: Normal S1/S2, regular rhythm, no murmurs, no JVD or carotid bruits. Abdomen: Soft, non-tender, no palpable masses, peristalsis present, no guarding or rebound. Extremities: Symmetrical, no significant deformities, no peripheral edema , non-tender, peripheral pulses present. Skin: No rashes, no lesions, warm to touch. Neuro: No focal neurological deficits. Difficult to arouse. Psych: Cooperative, appropriate mood and effect. Objective Labs 06/27/25 05:43 06/27/25 05:43 Labs: Laboratory Results - last 24 hr 06/26/25 05:40 WBC 14.6 H RBC 3.91 L Hgb 11.2 L Hct 36.2 MCV 93 MCH 28.6 MCHC 30.9 L RDW Std Deviation 55.2 H Plt Count 279 D Neut % (Auto) 78 Lymph % (Auto) 11 [place] % (Auto) 9 Eos % (Auto) 1 Baso % (Auto) 1 Neut # (Auto) 11.4 H Lymph # (Auto) 1.6 [place] # (Auto) 1.3 H Eos # (Auto) 0.2 Baso # (Auto) 0.1 Immature Gran # (Auto) 0.14 H Absolute Nucleated RBC 0.00 Immature Gran % 1 H Nucleated RBC % 0 PT 9.9 INR 0.9 Sodium 141 Potassium 4.8 Chloride 104 Carbon Dioxide 22.2 Anion Gap 15 BUN 33 H Creatinine 4.8 H* D Estim Creat Clear Calc 10.7 L eGFR 10 L* BUN/Creatinine Ratio 7 L Glucose 126 H D Calculated Osmolality 290 Calcium 9.3 Corrected Calcium 9.3 Phosphorus 6.2 H Magnesium 2.0 Total Bilirubin 0.3 AST 15 ALT 8 L Alkaline Phosphatase 124 H Total Protein 6.1 Albumin 4.0 Globulin 2.1 L Albumin/Globulin Ratio 1.9 Triglycerides 134 Cholesterol 209 H LDL Cholesterol, Calc 133 H HDL Cholesterol 49 Cholesterol/HDL Ratio 4.3 Hepatitis A IgM Ab Non Reactive Hep Bs Antigen Non Reactive Hep Bs Antibody NonReact(Not Immune) L Hep B Core IgM Ab Non Reactive Hepatitis C Antibody Non Reactive ABG Interpretation ABG results: 06/25/25 12:30 ABG pH 7.33 L ABG pCO2 43 ABG pO2 143 H D ABG HCO3 23 ABG O2 Saturation 98 ABG Base Excess -3 Quality Measures Quality Measures none Assessment & Plan Assessment Current Active Medications: Generic Name Dose Route Start Last Admin Trade Name Oscarq PRN Reason Stop Dose Admin Acetaminophen 650 mg 06/25/25 08:16 Acetaminophen 325 Mg Tablet PO 07/25/25 08:15 Q6H PRN PAIN OR FEVER > 101 Aspirin 81 mg 06/25/25 09:00 06/26/25 13:39 Aspirin Ec 81 Mg Tabec PO 07/25/25 08:59 Not Given QDAY [facility] Atorvastatin Calcium 40 mg 06/26/25 21:00 Atorvastatin Calcium 20 Mg Tablet PO 07/26/25 20:59 HS [facility] Clopidogrel Bisulfate 75 mg 06/25/25 09:00 06/26/25 13:44 Clopidogrel Bisulfate 75 Mg Tablet PO 07/25/25 08:59 Not Given QDAY [facility] Duloxetine HCl 30 mg 06/26/25 09:00 06/26/25 13:46 Duloxetine Hcl 30 Mg Capsule PO 07/26/25 08:59 Not Given BID [facility] Heparin Sodium (Porcine) 3,300 unit 06/25/25 11:42 06/26/25 12:03 Heparin Sod Inj 1000 Unit/Ml Vial 10 Ml INDWELLCAT 07/09/25 11:41 3,300 unit PRN PRN Administration DIALYSIS Albumin Human 25 gm in 100 mls @ 100 mls/hr 06/26/25 09:40 06/26/25 10:01 Albuminex 25% Ivpb IV 100 mls/hr PRN PRN Administration DIALYSIS Insulin Human Lispro 0 unit 06/26/25 18:00 Insulin Lispro (Admelog) 1 Unit/0.01 Ml Unit SC 07/26/25 17:59 Q6HR [facility] Protocol Labetalol HCl 10 mg 06/26/25 08:29 Labetalol Inj 5 Mg/Ml Vial 20 Ml IVP 07/25/25 08:16 Q4H PRN SBP > 150 Levetiracetam 1,000 mg 06/26/25 09:00 06/26/25 08:31 Levetiracetam Inj 100 Mg/Ml Vial 5ml IVP 07/26/25 08:59 1,000 mg Q12HR ALEX Administration Lorazepam 2 mg 06/25/25 12:20 Lorazepam 2 Mg/Ml Vial IVP 06/30/25 12:19 Q15MIN PRN Seizure Activity Metoclopramide HCl 5 mg 06/25/25 11:15 Metoclopramide Inj 5 Mg/Ml Vial 2 Ml IVP 07/25/25 13:59 Q8HR PRN nausea Protocol Ondansetron HCl 4 mg 06/25/25 08:16 Ondansetron Inj 2 Mg/Ml Inj 2 Ml IV 07/25/25 08:15 Q6H PRN NAUSEA OR VOMITING Protocol Pantoprazole Sodium 40 mg 06/25/25 09:00 06/26/25 08:31 Pantoprazole Inj 40 Mg Vial IVP 07/25/25 08:59 40 mg QDAY ALEX Administration Pharmacy Consult 1 each 06/25/25 12:21 Pharmacy Renal Dose Adjustment 1 Ea XX 07/25/25 12:20 PRN PRN CONSULT Pharmacy Consult 1 each 06/25/25 17:15 06/25/25 17:39 Vancomycin Pharmacy To Dose 1 Each Each IV 07/25/25 17:14 1 each QDAY ALEX Administration Ropinirole HCl 0.25 mg 06/26/25 21:00 Ropinirole Hcl 0.25 Mg Tablet PO 07/26/25 20:59 HS [facility] Sennosides 2 tab 06/25/25 09:00 Senna Tablet PO 07/25/25 08:59 BID PRN CONSTIPATION Protocol Valsartan 40 mg 06/26/25 09:00 06/26/25 13:47 Valsartan 40 Mg Tablet PO 07/26/25 08:59 Not Given QDAY ALEX Plan Patient is a 64-year-old female with past medical history of DM, ESRD, HTN, seizure disorder, CVA, CAD with open heart surgery, bradycardia with pacemaker, press syndrome x 3 presenting to the hospital for altered mentation/somnolence/difficulty to arouse on 06/25/2025; patient was admitted for altered mentation. #Acute encephalopathy #PRES syndrome #? Polypharmacy #Hypertensive emergency #History of HTN #Seizure disorder Family states that she has had this difficulty to arouse for a few days, after she had taken Xanax and a pain pill . Of note family endorses use of marijuana for appetite stimulation, and pharmacy notes history of previous [place] prescription this year. Patient is likely not septic, while the blood pressure is elevated, they are not tachycardic or tachypneic or have a fever; admission WBCs were 14.2. CT head negative for hemorrhage, mass effect or midline shift. Patient blood pressure roxy to 204/109 in the ED; treated with labetalol and hydralazine. Latest BP is 153/97 on 06/25/25. Patient had rapid called 06/25/25 for seizure during dialysis; on exam 06/26/25, patient is ANO x 0 and only responds with yeah to questions. EEG 06/25/2025 post seizure shows pattern consistent with PRES syndrome. Plan: Neurology consulted, thank you for recommendations- BP control to have systolic less than 140, increase Keppra to 1000 twice daily, and repeat EEG in 48 hours Patient started on valsartan 40 daily, labetalol 10 parameters modified to be added when systolic above 150 Speech therapy consulted, thank you for recommendations?allow ice chips as needed; will see tomorrow a.m. for readiness for diet Stool occult blood Trend BP Consult nephorology Seizure precautions placed Ativan 2 prn Q15min seizure activity #ESRD Patient has ESRD; receives dialysis Monday. Plan: As patient could not complete dialysis yesterday due to seizure like activity during dialysis treatment, will receive emergent dialysis today. avoid nephrotoxic agents, renally dose meds #DM A1c on 05-29-25 was 5.2. Glucose on 06/26/2025 was 126. Plan: Insulin sliding scale #Bradycardia with pacemaker #CAD #CVA EKG on 06/25/25 shows no acute changes Plan: Aspirin lipitor and Plavix restarted Disposition: Tele DVT prophylaxis: SCD GI prophylaxis: Protonix 40 twice daily Diet: N.p.o. Lines: PIV, dialysis catheter CODE STATUS: Full code This case was discussed with my attending physician, Dr. Osullivan, and senior resident, Dr. Flores. Gonzalez Villagran MD-PhD, PGY1 Attending Provider Attestation/Addendum ILenore, DO, attest that I was physically present for the [place] portions of the service and evaluated the patient with the resident and I reviewed and discussed the case with the resident and agree with the resident's findings and plans of care as documented above Patient seen and eval this a.m after dialysis. Patient remains somnolent, but is able to answer to verbal and tactile stimuli. She does withdraw from noxious stimuli. Pupils are equal and reactive to light. No seizure-like activity overnight. Case was discussed with neurology overnight. EEG did show periodic signs of epileptiform discharges. Recommended repeat EEG in 48 hours and increase the Keppra to 1000 mg twice daily. Will also continue with tight BP control due to concern for hypertensive encephalopathy. Patient is slightly more interactive than she was yesterday, but still obtunded. Blood pressure appears improved. Pending MRI. Will continue current management otherwise. Initial blood cultures noted to have GPC 1 out of 2 blood cultures. Will start vancomycin and follow with repeat blood cultures.
[2025-06-26] MEDS: LABETALOL INJ 5 MG/ML VIAL 20 ML 10 MG IVP ×2 (16:30→20:31)
--- NOTE | 2025-06-26 22:20 | PD.NEUROPROG ---
Documentation for date of: 06/26/25 Subjective Subjective Interval history: Patient is in telemetry today at the bedside. No seizures or myoclonic jerks after admission reported. However, she keeps her eyes closed tight but answers simple questions some times, Generalized weakness noted. Exam - Neurology Vital Signs Temp Pulse Resp BP Pulse Ox O2 Del Method O2 Flow Rate 97.5 F 77 16 98/79 96 Nasal Cannula 2 06/26/25 20:00 06/26/25 21:12 06/26/25 20:00 06/26/25 21:12 06/26/25 20:00 06/26/25 20:00 06/26/25 20:00 Narrative Exam GENERAL APPEARANCE: Well developed, well-nourished in no acute distress. HEENT: Normocephalic, atraumatic. Pupils: Equal reacting to light. NECK: Supple, no JVD or bruits. CARDIOVASULAR: Heart: S1, S2 heard, irregular without S3-S4 or murmur no rubs or gallops. LUNGS/CHEST: Clear to auscultation bilaterally. No rails, rhonchi, or wheezing. Normal inspection. ABDOMEN: Soft, nontender, with normal bowel sounds. No pulsatile masses. No rebound, rigidity, or guarding. Normal inspection and palpation. EXTREMITIES: Normal inspection and palpation. No edema, clubbing or cyanosis. SKIN: Warm and dry without rashes. Normal inspection. MUSCULOSKELETAL: No cervical, thoracic, lumbar or midline bony tenderness. Normal inspection. NEURO: Lethargic, but arousable to some extent, answers simple questions at times, Does not consistently follow commands, Gait: not tested. No signs of meningeal irritation noted. PSYCHIATRIC: limited Objective Labs 06/26/25 05:40 06/26/25 05:40 Labs: Laboratory Results - last 24 hr 06/26/25 05:40 WBC 14.6 H RBC 3.91 L Hgb 11.2 L Hct 36.2 MCV 93 MCH 28.6 MCHC 30.9 L RDW Std Deviation 55.2 H Plt Count 279 D Neut % (Auto) 78 Lymph % (Auto) 11 [place] % (Auto) 9 Eos % (Auto) 1 Baso % (Auto) 1 Neut # (Auto) 11.4 H Lymph # (Auto) 1.6 [place] # (Auto) 1.3 H Eos # (Auto) 0.2 Baso # (Auto) 0.1 Immature Gran # (Auto) 0.14 H Absolute Nucleated RBC 0.00 Immature Gran % 1 H Nucleated RBC % 0 PT 9.9 INR 0.9 Sodium 141 Potassium 4.8 Chloride 104 Carbon Dioxide 22.2 Anion Gap 15 BUN 33 H Creatinine 4.8 H* D Estim Creat Clear Calc 10.7 L eGFR 10 L* BUN/Creatinine Ratio 7 L Glucose 126 H D Calculated Osmolality 290 Calcium 9.3 Corrected Calcium 9.3 Phosphorus 6.2 H Magnesium 2.0 Total Bilirubin 0.3 AST 15 ALT 8 L Alkaline Phosphatase 124 H Total Protein 6.1 Albumin 4.0 Globulin 2.1 L Albumin/Globulin Ratio 1.9 Triglycerides 134 Cholesterol 209 H LDL Cholesterol, Calc 133 H HDL Cholesterol 49 Cholesterol/HDL Ratio 4.3 Hepatitis A IgM Ab Non Reactive Hep Bs Antigen Non Reactive Hep Bs Antibody NonReact(Not Immune) L Hep B Core IgM Ab Non Reactive Hepatitis C Antibody Non Reactive ABG Interpretation ABG results: 06/25/25 12:30 ABG pH 7.33 L ABG pCO2 43 ABG pO2 143 H D ABG HCO3 23 ABG O2 Saturation 98 ABG Base Excess -3 Assessment & Plan Assessment and plan (1) Altered mental status: Status: Acute Assessment and plan: Likely secondary to hypertensive encephalopathy. EEG findings show periodic generalized paroxysmal epileptiform discharges consistent with seizures. Will keep her on higher dose of Keppra and aggressive control of her blood pressure. Will follow-up with MRI brain to look for posterior reversible encephalopathy syndrome after getting clearance from cardiology with regards to MRI compatibility of pacemaker. will do a repeat EEG in 48 hours.
[2025-06-27] VITALS (23 sets, daily range): BP systolic 90–151; BP diastolic 54–85; PULSE 79–92; RESP 12–18; TEMP 36.3–37.1; O2SAT 91–98
--- NOTE | 2025-06-27 | XR_ITS ---
Examination: MRI brain without intravenous contrast. Date and time of exam: June 27, 2025, 1544 hours INDICATIONS: Onset confusion and altered mental status this week Technique: Multiple axial and sagittal images of the brain obtained. Siemens high-resolution 1.5 Sera short bore scanners utilized. Sagittal sections, T1-weighted, TR 500, TE 14, are performed. Axial sections proton-density and T2-weighted have been obtained. Inversion recovery axial images, TR 9, 260, TE 111, TI 2500. Diffusion weighted images, axial sections, TR 4800, TE 128, B value 1000 Axial sections, ADC map, TR 4800, TE 128 Findings: Enlargement of the sella turcica is not present. The optic chiasm and infundibular are not remarkable. Prepontine and interpeduncular cisterns are not enlarged. There is no localized enlargement of the medulla or chio. Fourth ventricle and cerebellar tonsils appear normal in position. No subacute area of hemorrhage density is seen. Mass in the cerebellopontine angle region is not evident. Globes symmetrical. Orbital musculature including medial lateral rectus muscles do not exhibit abnormality. Diffusion-weighted images demonstrate no focus of restricted diffusion. Increased white matter signal prominent Mass effect upon the ventricular system is not identified. Impression: Negative for acute hemorrhage, mass effect or midline shift No acute infarct Prominent chronic microvascular white matter change
[2025-06-27 06:32] LABS: Basophils # (Auto) 0.1 Thou/mm3 (0.0-0.2); Basophils % (Auto) 1 % (0-2.5); Eosinophils # (Auto) 0.1 Thou/mm3 (0.0-0.5); Eosinophils % (Auto) 1 % (0-10); Hematocrit 32.7 % (36.0-46.0); Hemoglobin 10.0 g/dL (12.0-16.0); Immature Granulocytes Auto 0.12 Thou/mm3 (0.00-0.00); Lymphocytes # (Auto) 1.9 Thou/mm3 (1.0-4.8); Lymphocytes % (Auto) 15 % (10-50); Mean Corpuscular HGB Conc 30.6 g/dl (31.0-37.0); Mean Corpuscular Hemoglobin 28.9 pg (25.0-35.0); Mean Corpuscular Volume 95 fL (80-100); Monocytes # (Auto) 1.2 Thou/mm3 (0.0-0.8); Monocytes % (Auto) 10 % (0-12); Neutrophils # (Auto) 8.9 Thou/mm3 (1.8-7.7); Neutrophils % (Auto) 72 % (37-80); Nucleated Red Blood Cell # 0.00 Thou/mm3 (0.00-0.00); Nucleated Red Blood Cell % 0 /100 WBC (0); Platelet Count 219 Thou/mm3 (140-440); RDW Standard Deviation 56.5 fL (36.4-46.3); Red Blood Count 3.46 Miln/mm3 (4.00-5.20); White Blood Count 12.3 Thou/mm3 (3.6-11.0)
[2025-06-27 07:07] LABS: Alanine Aminotransferase < 7 U/L (10-49); Albumin, Serum 3.9 gm/dL (3.4-4.8); Albumin/Globulin Ratio 2.1 (1.2-2.2); Alkaline Phosphatase 105 U/L (46-116); Anion Gap 13 (7-16); Aspartate Amino Transferase < 10 U/L (0-34); BUN/Creatinine Ratio 7 Ratio (12-20); Bilirubin,Total 0.5 mg/dL (0.3-1.2); Blood Urea Nitrogen 26 mg/dL (9-23); Calcium 9.5 mg/dL (8.3-10.6); Calcium (Corrected) 9.6 mg/dL (8.5-10.1); Carbon Dioxide 26.0 mMol/L (20.0-31.0); Chloride 102 mMol/L (98-107); Creatinine (Component) 3.7 mg/dL (0.6-1.3); Estimated Creatinine Clearance 13.8 mL/min (>60); Globulin 1.9 gm/dL (2.3-3.5); Glucose 118 mg/dL (74-106); Magnesium 1.9 mg/dL (1.6-2.6); Osmolality,Calculated 286 (275-295); Phosphorous 5.1 mg/dL (2.4-5.1); Potassium 3.9 mMol/L (3.4-5.1); Sodium 141 mMol/L (136-145); Total Protein 5.8 gm/dL (5.7-8.2); Vancomycin,Random 13.2 mcg/mL; eGFR 13 See Note
--- NOTE | 2025-06-27 08:14 | ESCONSULT_ITS ---
RE: KAREN BARNES : 1960 DATE OF CONSULTATION: 06/26/2025 REASON FOR REFERRAL: ESRD management. REFERRING PHYSICIAN: Dr. Villagran. HISTORY OF PRESENT ILLNESS: This patient is a 64 year old woman with past medical history significant for type 2 diabetes with diabetic retinopathy, neuropathy, nephropathy, hypertension, CAD status post CABG, third degree AV block status post pacemaker placement on 10/17/2024, and ESRD on dialysis at [facility], dialyzing Monday, Monday, Fridays since 2021, who presented to emergency room yesterday with acute encephalopathy. Patient in the past few months have been coming over to emergency room for similar symptoms. Patient always comes in with severe hypertension whose blood pressure range from 170s to 200 over 90s to 100. In one of her admissions, she was found with PRES syndrome and had seizure like activity and was placed on Keppra. About 2 weeks ago, patient told me that she was not able to sleep at all because she stopped taking her marijuana. However, on 06/25, patient took marijuana, a pain pill, and Xanax and afterwards became very confused and unresponsive. She was brought by her daughter to the emergency room where she was found severely hypertensive. Patient was admitted and while on dialysis yesterday started having some seizure like activities and dialysis was stopped. She had an EEG in the afternoon and the result of which is still pending. She is currently on dialysis as she did not complete her dialysis yesterday. She is asleep most of the time that she is on dialysis; however, answers questions correctly. PAST MEDICAL HISTORY: CAD, CABG in 2023, history of CVA with no residual weakness, type 2 diabetes with neuropathy, retinopathy, nephropathy, history of hypotension secondary to autonomic neuropathy with hypertension, history of gastroparesis. PAST SURGICAL HISTORY: PD catheter placement and removal, pacemaker placement, CABG, section. FAMILY HISTORY: Father has diabetes, hypertension, and ESRD. ALLERGIES: NO KNOWN DRUG ALLERGIES. CURRENT MEDICATIONS: 1. Acetaminophen. 2. Aspirin 81 mg daily. 3. Atorvastatin 40 mg at bedtime. 4. Plavix 75 mg p.o. daily. 5. Cymbalta 30 mg b.i.d. 6. Lispro sliding scale. 7. Labetalol 10 mg IV x1. 8. Keppra 1 g x1, 500 mg x1, 1 g IV q.12. 9. Lorazepam 2 mg IV q.15. 10. Metoclopramide 5 mg IV q.8. 11. Ondansetron 4 mg IV q.6. 12. Protonix 40 mg IV daily. 13. Requip 0.375 mg p.o. at bedtime. 14. Valsartan 4 mg daily. 15. Vancomycin 1250 mg x1. PHYSICAL EXAMINATION: GENERAL: She is awake but goes back to sleep easily. She answers questions. She is currently on dialysis. VITAL SIGNS: Blood pressure of 151/85, heart rate of 88, temperature 98.7, O2 sat of 98%. HEENT: Anicteric sclerae, normocephalic. NECK: Supple, no JVD. CHEST AND LUNGS: Symmetric expansion, clear breath sounds. HEART: Cardiac exam without murmur. ABDOMEN: Soft and nontender. EXTREMITIES: No edema. LABORATORY DATA: Hemoglobin 11.2, WBC 14,600, platelet count 279,000. Sodium 141, potassium 4.8, chloride 104, CO2 22.2, BUN 33, creatinine 4.8, calcium 9.3, glucose 126, phosphorus 6.2. Chest x-ray: No pneumonia. ASSESSMENT: 1. End-stage renal disease. 2. Altered level of consciousness, most likely secondary to combination of Keppra, Xanax, and pain pills. 3. Uncontrolled hypertension. 4. History of type 2 diabetes. 5. History of seizure disorder. PLAN: Patient is currently on dialysis, somehow tolerating dialysis. We are still waiting for the result of her EEG. We will continue Keppra as per neurologist. Continue IV antihypertensives for now while patient is still very sleepy or lethargic. Next dialysis will be tomorrow as tomorrow is her regular day. DT: 13:46:37 TT: 14:20:00 Ref: [id number] - TID: [id number] MTDD
--- NOTE | 2025-06-27 09:29 | PD.RESPRO ---
Documentation for date of: 06/27/25 Senior resident attestation: Patient evaluated and examined at the bedside, plan of care discussed with rest of the team including my attending physician, except as noted. All patient is a 6 female past medical history of 4-year-old diabetes mellitus, CAD history of CABG, third-degree block status post pacemaker, ESRD on hemodialysis, seizure disorder, who presented to the ER following acute encephalopathy likely secondary to polypharmacy as patient had taken Xanax and marijuana on top of a pain pill. Patient does follow Dr Chan outpatient and was directed from her office to go to the ER due to altered mental status. Currently maintained on Keppra, patient did have a seizure episode during hemodialysis, increased Keppra dosage. EEG positive for seizures activity, neurology recommended MRI, which is pending confirming pacemaker compatibility, and repeat EEG at 48 hours which is ordered. Patient did grow GPC's in the second sample 1/2 bottles, echocardiogram was negative for vegetations, will get Quresh PGY3 Subjective Subjective Interval history: Patient was seen and examined at bedside; no acute events overnight. Patient mentation significantly improved since yesterday; now A&Ox2 and can follow commands. Should get MRI and repeat EEG today. Passed swallow study. Blood cultures positive for Staph epidermidis. Exam Vital Signs Temp Pulse Resp BP Pulse Ox O2 Del Method O2 Flow Rate 97.8 F 83 15 105/61 92 L Room Air 2 06/27/25 08:00 06/27/25 09:23 06/27/25 09:23 06/27/25 08:00 06/27/25 09:23 06/27/25 08:00 06/27/25 04:00 Narrative Exam General: A/O x2, no acute distress, well-nourished, well-developed Eyes: PERRL, EOMI. Anicteric, vision grossly intact. Ears: No ear pain, no ear discharge, Hearing grossly intact. Nose: No nasal discharge. Mouth/Throat: Moist mucous membranes, no redness, no lesions. Neck: Neck supple, non-tender, no cervical lymphadenopathy. Lungs: Clear K[place] to auscultation and percussion, No accessory muscle use. Cardio: Normal S1/S2, regular rhythm, no murmurs, no JVD or carotid bruits. Abdomen: Soft, non-tender, no palpable masses, peristalsis present, no guarding or rebound. Extremities: Symmetrical, no significant deformities, no peripheral edema , non-tender, peripheral pulses present. Skin: No rashes, no lesions, warm to touch. Neuro: No focal neurological deficits. More alert. Psych: Cooperative, appropriate mood and effect. Objective Labs 06/27/25 05:43 06/27/25 05:43 Labs: Laboratory Results - last 24 hr 06/26/25 06/27/25 05:40 05:43 WBC 12.3 H RBC 3.46 L Hgb 10.0 L Hct 32.7 L MCV 95 MCH 28.9 MCHC 30.6 L RDW Std Deviation 56.5 H Plt Count 219 D Neut % (Auto) 72 Lymph % (Auto) 15 [place] % (Auto) 10 Eos % (Auto) 1 Baso % (Auto) 1 Neut # (Auto) 8.9 H Lymph # (Auto) 1.9 [place] # (Auto) 1.2 H Eos # (Auto) 0.1 Baso # (Auto) 0.1 Immature Gran # (Auto) 0.12 H Absolute Nucleated RBC 0.00 Immature Gran % 1 H Nucleated RBC % 0 Sodium 141 Potassium 3.9 D Chloride 102 Carbon Dioxide 26.0 Anion Gap 13 BUN 26 H Creatinine 3.7 H D Estim Creat Clear Calc 13.8 L eGFR 13 L* BUN/Creatinine Ratio 7 L Glucose 118 H Calculated Osmolality 286 Calcium 9.5 Corrected Calcium 9.6 Phosphorus 5.1 Magnesium 1.9 Total Bilirubin 0.5 AST < 10 ALT < 7 L Alkaline Phosphatase 105 Total Protein 5.8 Albumin 3.9 Globulin 1.9 L Albumin/Globulin Ratio 2.1 Random Vancomycin 13.2 Hepatitis A IgM Ab Non Reactive Hep Bs Antigen Non Reactive Hep Bs Antibody NonReact(Not Immune) L Hep B Core IgM Ab Non Reactive Hepatitis C Antibody Non Reactive ABG Interpretation ABG results: 06/25/25 12:30 ABG pH 7.33 L ABG pCO2 43 ABG pO2 143 H D ABG HCO3 23 ABG O2 Saturation 98 ABG Base Excess -3 Quality Measures Quality Measures none Assessment & Plan Assessment Current Active Medications: Generic Name Dose Route Start Last Admin Trade Name Freq PRN Reason Stop Dose Admin Acetaminophen 650 mg 06/25/25 08:16 Acetaminophen 325 Mg Tablet PO 07/25/25 08:15 Q6H PRN PAIN OR FEVER > 101 Aspirin 81 mg 06/25/25 09:00 06/26/25 13:39 Aspirin Ec 81 Mg Tabec PO 07/25/25 08:59 Not Given QDAY ALEX Atorvastatin Calcium 40 mg 06/26/25 21:00 06/26/25 20:17 Atorvastatin Calcium 20 Mg Tablet PO 07/26/25 20:59 Not Given HS [facility] Clopidogrel Bisulfate 75 mg 06/25/25 09:00 06/26/25 13:44 Clopidogrel Bisulfate 75 Mg Tablet PO 07/25/25 08:59 Not Given QDAY [facility] Duloxetine HCl 30 mg 06/26/25 09:00 06/26/25 20:16 Duloxetine Hcl 30 Mg Capsule PO 07/26/25 08:59 Not Given BID ALEX Heparin Sodium (Porcine) 3,300 unit 06/25/25 11:42 06/26/25 12:03 Heparin Sod Inj 1000 Unit/Ml Vial 10 Ml INDWELLCAT 07/09/25 11:41 3,300 unit PRN PRN Administration DIALYSIS Albumin Human 25 gm in 100 mls @ 100 mls/hr 06/26/25 09:40 06/26/25 10:01 Albuminex 25% Ivpb IV 100 mls/hr PRN PRN Administration DIALYSIS Vancomycin/Sodium Chloride 750 mg in 150 mls @ 120 mls/hr 06/27/25 10:00 Vancomycin/Ns 750 Mg Ivpb IV 06/27/25 11:14 X1 ONE Insulin Human Lispro 0 unit 06/26/25 18:00 06/27/25 05:02 Insulin Lispro (Admelog) 1 Unit/0.01 Ml Unit SC 07/26/25 17:59 Not Given Q6HR [facility] Protocol Labetalol HCl 10 mg 06/26/25 08:29 06/26/25 16:30 Labetalol Inj 5 Mg/Ml Vial 20 Ml IVP 07/25/25 08:16 10 mg Q4H PRN Administration SBP > 150 Levetiracetam 1,000 mg 06/26/25 09:00 06/26/25 20:33 Levetiracetam Inj 100 Mg/Ml Vial 5ml IVP 07/26/25 08:59 1,000 mg Q12HR ALEX Administration Lorazepam 2 mg 06/25/25 12:20 Lorazepam 2 Mg/Ml Vial IVP 06/30/25 12:19 Q15MIN PRN Seizure Activity Metoclopramide HCl 5 mg 06/25/25 11:15 Metoclopramide Inj 5 Mg/Ml Vial 2 Ml IVP 07/25/25 13:59 Q8HR PRN nausea Protocol Ondansetron HCl 4 mg 06/25/25 08:16 Ondansetron Inj 2 Mg/Ml Inj 2 Ml IV 07/25/25 08:15 Q6H PRN NAUSEA OR VOMITING Protocol Pantoprazole Sodium 40 mg 06/25/25 09:00 06/27/25 08:03 Pantoprazole Inj 40 Mg Vial IVP 07/25/25 08:59 40 mg QDAY ALEX Administration Pharmacy Consult 1 each 06/25/25 12:21 Pharmacy Renal Dose Adjustment 1 Ea XX 07/25/25 12:20 PRN PRN CONSULT Pharmacy Consult 1 each 06/25/25 17:15 06/26/25 17:24 Vancomycin Pharmacy To Dose 1 Each Each IV 07/25/25 17:14 Not Given QDAY ALEX Ropinirole HCl 0.25 mg 06/26/25 21:00 06/26/25 20:17 Ropinirole Hcl 0.25 Mg Tablet PO 07/26/25 20:59 Not Given HS ALEX Sennosides 2 tab 06/25/25 09:00 Senna Tablet PO 07/25/25 08:59 BID PRN CONSTIPATION Protocol Valsartan 40 mg 06/27/25 08:36 Valsartan 40 Mg Tablet PO 07/26/25 08:59 QDAY ALEX Plan Patient is a 64-year-old female with past medical history of DM, ESRD, HTN, seizure disorder, CVA, CAD with open heart surgery, bradycardia with pacemaker, press syndrome x 3 presenting to the hospital for altered mentation/somnolence/difficulty to arouse on 06/25/2025; patient was admitted for altered mentation. #Acute encephalopathy #PRES syndrome #? Polypharmacy #Hypertensive emergency #History of HTN #Seizure disorder Family states that she has had difficulty to arouse for a few days, after she had taken Xanax and a pain pill . Of note family endorses use of marijuana for appetite stimulation, and pharmacy notes history of previous [place] prescription this year. Patient is likely not septic, while the blood pressure is elevated, they are not tachycardic or tachypneic or have a fever; admission WBCs were 14.2. CT head negative for hemorrhage, mass effect or midline shift. Patient blood pressure roxy to 204/109 in the ED; treated with labetalol and hydralazine. Latest BP is 124/80 on 06/27/25. Patient had rapid called 06/25/25 for seizure during dialysis; on exam 06/26/25, patient is ANO x 0 and only responds with yeah to questions. EEG 06/25/2025 post seizure shows pattern consistent with PRES syndrome. 06/27/25- Patient A&Ox3, following commands; passed swallow study (recommend puree diet) Plan: Neurology consulted, thank you for recommendations- BP control to have systolic less than 140, increase Keppra to 1000 twice daily, and repeat EEG in 48 hours Repeat EEG and MRI ordered (MRI waiting on confirmation of pacemaker compatibility) Patient started on valsartan 40 daily, labetalol 10 parameters modified to be added when systolic above 150 Stool occult blood Trend BP Nephrology consulted, thank you for recs- continue with dialysis and IV hypertensives Seizure precautions placed Ativan 2 prn Q15min seizure activity #Staph epidermidis bacteremia Blood cultures taken 06/24/25 positive for Staph epidermidis Plan: ID consulted, started on vancomycin #ESRD Patient has ESRD; receives dialysis Monday. Plan: Dialysis MWF avoid nephrotoxic agents, renally dose meds #DM A1c on 05-29-25 was 5.2. Glucose on 06/26/2025 was 126. Plan: Insulin sliding scale #Bradycardia with pacemaker #CAD #CVA EKG on 06/25/25 shows no acute changes Plan: Aspirin lipitor and Plavix restarted Disposition: Tele DVT prophylaxis: SCD GI prophylaxis: Protonix 40 twice daily Diet: N.p.o. Lines: PIV, dialysis catheter CODE STATUS: Full code This case was discussed with my attending physician, Dr. Osullivan, and senior resident, Dr. Acevedo. Gonzalez Villagran MD-PhD, PGY1 Attending Provider Attestation/Addendum Lenore Arcos DO, attest that I was physically present for the [place] portions of the service and evaluated the patient with the resident and I reviewed and discussed the case with the resident and agree with the resident's findings and plans of care as documented above Patient seen and eval this a.m during dialysis. Patient is much more alert today and states that she has been feeling unwell for over a week. She denies any frequent falls. She also does not recall coming to the hospital. She does endorse having seizures at home. She currently denies any pain, shortness of breath, fevers, chills, nausea, abdominal pain, headache or vomiting. Patient is A&Ox3, but with generalized weakness. Repeat bcx remains 1/2 positive for GPC. She remains on vancomycin at this time. ID consulted. May need to have HD catheter removed. BP is better controlled at this time. No acute events overnight. Will continue to f/u with blood cultures. Echocardiogram ordered. Will f/u with nephro and neuro recs. Pending repeat EEG and MRI.
[2025-06-27] MEDS: CLOPIDOGREL BISULFATE 75 MG TABLET PO (09:46)
[2025-06-27] MEDS: ASPIRIN EC 81 MG TABEC PO (09:46)
[2025-06-27] MEDS: DULoxetine HCL 30 MG CAPSULE PO ×2 (09:46→20:45)
[2025-06-27] MEDS: levETIRAcetam INJ 100 MG/ML VIAL 5ML 1000 MG IVP ×2 (09:47→20:45)
[2025-06-27] MEDS: ALBUMIN HUMAN-KJDA 25% IVPB 25 GM/100 ML BTL IV (10:46)
--- NOTE | 2025-06-27 10:52 | PD.IDPROG ---
Subjective Subjective Interval history: hx noted. pos bc noted bc noted. 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 cause of ckd not clear to me. was on pd before now on hd. echo done and neg. no over need for víctor noted. unless more bc pos Objective - Internal Medicine Labs 06/27/25 05:43 06/27/25 05:43 Labs: Laboratory Results - last 24 hr 06/26/25 06/27/25 05:40 05:43 WBC 12.3 H RBC 3.46 L Hgb 10.0 L Hct 32.7 L MCV 95 MCH 28.9 MCHC 30.6 L RDW Std Deviation 56.5 H Plt Count 219 D Neut % (Auto) 72 Lymph % (Auto) 15 [place] % (Auto) 10 Eos % (Auto) 1 Baso % (Auto) 1 Neut # (Auto) 8.9 H Lymph # (Auto) 1.9 [place] # (Auto) 1.2 H Eos # (Auto) 0.1 Baso # (Auto) 0.1 Immature Gran # (Auto) 0.12 H Absolute Nucleated RBC 0.00 Immature Gran % 1 H Nucleated RBC % 0 Sodium 141 Potassium 3.9 D Chloride 102 Carbon Dioxide 26.0 Anion Gap 13 BUN 26 H Creatinine 3.7 H D Estim Creat Clear Calc 13.8 L eGFR 13 L* BUN/Creatinine Ratio 7 L Glucose 118 H Calculated Osmolality 286 Calcium 9.5 Corrected Calcium 9.6 Phosphorus 5.1 Magnesium 1.9 Total Bilirubin 0.5 AST < 10 ALT < 7 L Alkaline Phosphatase 105 Total Protein 5.8 Albumin 3.9 Globulin 1.9 L Albumin/Globulin Ratio 2.1 Random Vancomycin 13.2 Hepatitis A IgM Ab Non Reactive Hep Bs Antigen Non Reactive Hep Bs Antibody NonReact(Not Immune) L Hep B Core IgM Ab Non Reactive Hepatitis C Antibody Non Reactive ABG Interpretation ABG results: 06/25/25 12:30 ABG pH 7.33 L ABG pCO2 43 ABG pO2 143 H D ABG HCO3 23 ABG O2 Saturation 98 ABG Base Excess -3 Assessment & Plan A&P Narrative single pos bc with coag neg staph. has a cvl for hd other problems as noted marlenyo wally for 14d from first neg bc. will add more abx if needed Time Spent With Patient Time: Total time spent is greater than 50% in coordination of care (as documented) at patient's floor/unit and/or counseling patient:
--- NOTE | 2025-06-27 11:25 | PC.SS ---
Patient is currently altered. Patient not in room and in dialysis. SS spoke to patient's daughter, Carmen, re: patient history. Patient's daughter, Carmen, states her mother and father live on her property. Patient is on hemodialysis with every M/W/F @ 10a.m. Daughter states she provides transportation. Patient is independent with ADL's. Patient uses a walker, shower chair and bsc. PCP: [facility] in [place] with Catalina Angulo NP under Dr. Mullins. Patient will d/c back to daughter's home. Pharmacy: [facility] medical decision maker: DaughterCarmen,
--- NOTE | 2025-06-27 11:51 | ESCONSULT_ITS ---
RE: KAREN BARNES : 1960 DATE OF CONSULTATION: 06/27/2025 REFERRING PHYSICIAN: Dr. Osullivan. REASON FOR CONSULTATION: Bacteremia. HISTORY OF PRESENT ILLNESS: Patient is a hemodialysis patient. I am not sure quite how long she has been on dialysis. She is unable to answer simple questions today. She has a history of several health problems as listed previously. I saw her a couple of years ago in 2022 for abdominal pain. She is on vancomycin, has been afebrile but has otherwise irregular labs. Medical problems include diabetes, kidney disease, negative hepatitis panel, history of renal stones, obstruction and hypertension with diabetic nephropathy and neuropathy. PAST SURGICAL HISTORY: Includes 3 C-sections, hysterectomy, cholecystectomy and BTL or tubal surgery. She has a peritoneal dialysis access procedures as well. ALLERGIES: NONE NOTED. IMMUNIZATIONS: Last tetanus was about 2021. Has not had a flu shot regularly although hemodialysis offices often suggest one and my notes from 2022 she did not have a COVID vaccine and no pneumococcal vaccination. FAMILY HISTORY: Positive for diabetes and chronic kidney disease with a brother having had both. Brother had passed on I know per my notes from a couple of years ago. SOCIAL HISTORY: Patient lives with her /long-term partner. Uses marijuana occasionally. She does not make much urine anymore because she is on hemo. When she was on peritoneal, she made more urine.as Exam benign. she is confused though so has some encephalopathy If she improves, we will leave her on vancomycin. If the cultures are positive, we will see her and broaden treatment differently. For now, vancomycin alone is okay as all cultures are negative except for the single positive with coagulase negative staph from 48 hours ago. DT: 11:16:52 TT: 11:50:00 Ref: [id number] - TID: [id number] [facility]
[2025-06-27] MEDS: EPOETIN ALFA-EPBX INJ 10,000 UNIT/ML VIAL (NON-ESRD) 10000 UNIT IV (12:42)
[2025-06-27] MEDS: VANCOMYCIN/NS 750 MG IVPB 750 MG/150 ML BAG 120 MG IV (13:51)
--- NOTE | 2025-06-27 19:10 | PC.NURSE ---
report given to nick escoto,made her aware pt.has not voided,bladder scan 200 ml.
[2025-06-27] MEDS: ATORVASTATIN CALCIUM 20 MG TABLET 40 MG PO (20:45)
--- NOTE | 2025-06-27 22:20 | ESPR_ITS ---
RE: KAREN BARNES : 1960 DATE OF SERVICE: 06/27/2025 HISTORY OF PRESENT ILLNESS: Briefly, she is a 64-year-old woman with type 2 diabetes with diabetic retinopathy, neuropathy, nephropathy, hypertension, CAD status post CABG, third-degree AV block status post pacemaker placement on 10/17/2024, and ESRD on dialysis since 2021, dialyzing Monday, Monday, Monday, who presented to the emergency room on 06/25/2025 with acute encephalopathy. The patient had an EEG after she had seizure during dialysis on 06/26/2025, and it confirmed that she has seizure disorder. Her Keppra was increased to 1 g IV b.i.d. and blood pressures were controlled to 120s over 80s. The patient had dialysis earlier today, about 1.5 liters of fluid was removed. She is doing much better. She is more coherent, answering all questions right and interacting with her , daughter, and myself. CURRENT MEDICATIONS: 1. Acetaminophen 650 mg p.o. q.6 h. 2. Aspirin 81 mg p.o. daily. 3. Atorvastatin 40 mg p.o. at bedtime. 4. Plavix 75 mg p.o. daily. 5. Cymbalta 30 mg p.o. b.i.d. 6. Labetalol 10 mg IV q.4 h p.r.n. 7. Keppra 1 g IV q.12 h. 8. Magnesium p.r.n. 9. Metoclopramide 5 mg IV q.8 h. 10. Ondansetron 4 mg IV q.6 h. 11. Protonix 40 mg IV daily. 12. Requip 0.25 mg p.o. at bedtime. 13. Senna 2 tablets p.o. b.i.d. 14. Diovan 4 mg daily. 15. Vancomycin 750 mg IV x1 and p.r.n. for level less than 15. PHYSICAL EXAMINATION: GENERAL: More awake and alert. VITAL SIGNS: Blood pressure of 120/80. HEENT: Anicteric sclerae, normocephalic. NECK: Supple. . CHEST AND LUNGS: Symmetric expansion, clear breath sounds. HEART: Cardiac exam without murmur. Abdomen: Soft and nontender. Extremities: No edema. LABORATORY DATA: Hemoglobin 10, platelet count 219,000. Sodium 141, potassium 3.9, chloride 102, CO2 of 26, BUN 26, creatinine 3.7, glucose 118, calcium 9.5. ASSESSMENT: 1. End-stage renal disease. 2. Acute encephalopathy, most likely secondary to combination of Keppra, Xanax, and pain pills, now improved. 3. Uncontrolled hypertension, now improved. 4. History of type 2 diabetes. 5. History of seizure disorder, on increased dose of Keppra at 1 g IV q.12 h. PLAN: The patient had dialysis earlier today, about 1.5 liters of fluid was removed. Next dialysis will be on Monday. We will continue her Keppra as per neurologist. Continue current antihypertensives. DT: 21:24:53 TT: 22:09:00 Ref: [id number] - TID: [id number] [facility]
--- NOTE | 2025-06-27 23:58 | ESPR_ITS ---
Documentation for date of: 06/27/25 Subjective Subjective Interval history: Patient is in telemetry today at the bedside. No seizures or myoclonic jerks after admission reported. Her mental status is improving significantly and is close to baseline. She is able to open her eyes and answer questions but inconsistently still. Exam - Neurology Vital Signs Temp Pulse Resp BP Pulse Ox O2 Del Method O2 Flow Rate 97.5 F 83 12 90/56 L 94 L Room Air 2 06/27/25 19:52 06/27/25 19:52 06/27/25 19:52 06/27/25 19:52 06/27/25 19:52 06/27/25 19:52 06/27/25 13:19 Narrative Exam GENERAL APPEARANCE: Well hydrated, well-nourished in no acute distress. HEENT: Normocephalic, atraumatic, extraocular movements intact. Pupils: Equal reacting to light and accommodation NECK: Supple, no JVD or bruits. CARDIOVASULAR: Heart: S1, S2 heard, regular without S3-S4 or murmur no rubs or gallops. LUNGS/CHEST: Clear to auscultation bilaterally. No rails, rhonchi, or wheezing. Normal inspection. ABDOMEN: Soft, nontender, with normal bowel sounds. No pulsatile masses. No rebound, rigidity, or guarding. Normal inspection and palpation. EXTREMITIES: Normal inspection and palpation. No edema, clubbing or cyanosis. SKIN: Warm and dry without rashes. Normal inspection. MUSCULOSKELETAL: No cervical, thoracic, lumbar or midline bony tenderness. Normal inspection. NEURO: Alert, awake and oriented x3. Cranial nerves: II through XII grossly intact. Speech and language: Normal with no dysarthria or dysphasia. Motor system: Tone and bulk: Normal: Strength: 5 out of 5 in all 4 extremities; No pronator drift noted. Deep tendon reflexes: 2+ bilaterally symmetrical. Plantar reflex: Downgoing bilaterally. Sensory system: Intact to all modalities of sensation bilaterally. Coordination: Intact to [id number] and [id number] test bilaterally. No ataxia, no dysmetria, or dysdiadochokinesia noted. No intention tremors noted. Gait: Not tested. No signs of meningeal irritation noted. PSYCHIATRIC: Normal mood and affect. Objective Labs 06/28/25 05:02 06/28/25 05:02 Labs: Laboratory Results - last 24 hr 06/27/25 05:43 WBC 12.3 H RBC 3.46 L Hgb 10.0 L Hct 32.7 L MCV 95 MCH 28.9 MCHC 30.6 L RDW Std Deviation 56.5 H Plt Count 219 D Neut % (Auto) 72 Lymph % (Auto) 15 [place] % (Auto) 10 Eos % (Auto) 1 Baso % (Auto) 1 Neut # (Auto) 8.9 H Lymph # (Auto) 1.9 [place] # (Auto) 1.2 H Eos # (Auto) 0.1 Baso # (Auto) 0.1 Immature Gran # (Auto) 0.12 H Absolute Nucleated RBC 0.00 Immature Gran % 1 H Nucleated RBC % 0 Sodium 141 Potassium 3.9 D Chloride 102 Carbon Dioxide 26.0 Anion Gap 13 BUN 26 H Creatinine 3.7 H D Estim Creat Clear Calc 13.8 L eGFR 13 L* BUN/Creatinine Ratio 7 L Glucose 118 H Calculated Osmolality 286 Calcium 9.5 Corrected Calcium 9.6 Phosphorus 5.1 Magnesium 1.9 Total Bilirubin 0.5 AST < 10 ALT < 7 L Alkaline Phosphatase 105 Total Protein 5.8 Albumin 3.9 Globulin 1.9 L Albumin/Globulin Ratio 2.1 Random Vancomycin 13.2 ABG Interpretation ABG results: 06/25/25 12:30 ABG pH 7.33 L ABG pCO2 43 ABG pO2 143 H D ABG HCO3 23 ABG O2 Saturation 98 ABG Base Excess -3 Assessment & Plan Assessment and plan (1) Altered mental status: Status: Resolved Assessment and plan: (1) Altered mental status: Likely secondary to hypertensive encephalopathy. Initial EEG findings show periodic generalized paroxysmal epileptiform discharges consistent with seizures. Will keep her on higher dose of Keppra and aggressive control of her blood pressure. MRI brain negative for posterior reversible encephalopathy syndrome. Follow-up with repeat EEG.
[2025-06-28] VITALS (11 sets, daily range): BP systolic 85–124; BP diastolic 56–69; PULSE 77–90; RESP 13–94; TEMP 36.2–38.1; O2SAT 91–95; BMI 24.6
[2025-06-28 05:28] LABS: Basophils # (Auto) 0.1 Thou/mm3 (0.0-0.2); Basophils % (Auto) 1 % (0-2.5); Eosinophils # (Auto) 0.1 Thou/mm3 (0.0-0.5); Eosinophils % (Auto) 1 % (0-10); Hematocrit 31.3 % (36.0-46.0); Hemoglobin 9.5 g/dL (12.0-16.0); Immature Granulocytes Auto 0.30 Thou/mm3 (0.00-0.00); Lymphocytes # (Auto) 2.2 Thou/mm3 (1.0-4.8); Lymphocytes % (Auto) 20 % (10-50); Mean Corpuscular HGB Conc 30.4 g/dl (31.0-37.0); Mean Corpuscular Hemoglobin 28.6 pg (25.0-35.0); Mean Corpuscular Volume 94 fL (80-100); Monocytes # (Auto) 1.3 Thou/mm3 (0.0-0.8); Monocytes % (Auto) 12 % (0-12); Neutrophils # (Auto) 6.9 Thou/mm3 (1.8-7.7); Neutrophils % (Auto) 63 % (37-80); Nucleated Red Blood Cell # 0.00 Thou/mm3 (0.00-0.00); Nucleated Red Blood Cell % 0 /100 WBC (0); Platelet Count 212 Thou/mm3 (140-440); RDW Standard Deviation 56.5 fL (36.4-46.3); Red Blood Count 3.32 Miln/mm3 (4.00-5.20); White Blood Count 10.9 Thou/mm3 (3.6-11.0)
[2025-06-28 06:17] LABS: Alanine Aminotransferase < 7 U/L (10-49); Albumin, Serum 4.3 gm/dL (3.4-4.8); Albumin/Globulin Ratio 2.5 (1.2-2.2); Alkaline Phosphatase 95 U/L (46-116); Anion Gap 12 (7-16); Aspartate Amino Transferase 10 U/L (0-34); BUN/Creatinine Ratio 7 Ratio (12-20); Bilirubin,Total 0.5 mg/dL (0.3-1.2); Blood Urea Nitrogen 23 mg/dL (9-23); Calcium 9.8 mg/dL (8.3-10.6); Calcium (Corrected) 9.8 mg/dL (8.5-10.1); Carbon Dioxide 25.7 mMol/L (20.0-31.0); Chloride 101 mMol/L (98-107); Creatinine (Component) 3.5 mg/dL (0.6-1.3); Estimated Creatinine Clearance 14.6 mL/min (>60); Globulin 1.7 gm/dL (2.3-3.5); Glucose 128 mg/dL (74-106); Magnesium 2.2 mg/dL (1.6-2.6); Osmolality,Calculated 283 (275-295); Phosphorous 4.5 mg/dL (2.4-5.1); Potassium 3.9 mMol/L (3.4-5.1); Sodium 139 mMol/L (136-145); Total Protein 6.0 gm/dL (5.7-8.2); Vancomycin,Random 20.6 mcg/mL; eGFR 14 See Note
--- NOTE | 2025-06-28 07:58 | ESPR_ITS ---
Documentation for date of: 06/28/25 Subjective Subjective Interval history: Ms. Carmona is a 64-year-old woman with a history of diabetes, CAD with CABG, pacemaker due to third-degree heart block, ESRD (Monday, follows with Dr Awad), seizure disorder, press syndrome, who presented with encephalopathy likely secondary to polypharmacy who was found to have GPC bacteremia with 1 out of 2 cultures growing Staph epidermidis. Today patient is alert and oriented x 3 blood pressure is slightly soft at 95/61 patient remains afebrile morning valsartan was held due to soft blood pressures. Discussed patient care with [employer] and policy professor Dr Awad with plan for dialysis Monday as per patient's usual schedule and removal of tunneled dialysis catheter and subsequent 48-hour catheter break prior to reinsertion. Repeat blood cultures growing GPC speciation pending, continues on pharmacy dose vancomycin. Exam Vital Signs Temp Pulse Resp BP Pulse Ox O2 Del Method O2 Flow Rate 97.9 F 87 15 106/65 91 L Room Air 2 06/28/25 04:00 06/28/25 04:00 06/28/25 04:00 06/28/25 04:00 06/28/25 04:00 06/28/25 04:00 06/27/25 13:19 Narrative Exam GENERAL: no acute distress, AAO x3, comfortably laying in bed HEENT: Head AT/ NC. Mucous membranes moist. PERRL. NECK: Supple, no lymphadenopathy, no carotid bruits. CARDIOVASCULAR: RRR. Normal S1/S2, No m/r/g. No pitting edema of bilateral LEs. RUpper chest hd cath without errythema or tenderness to palpation RESPIRATORY: CTAB. No wheezing, rhonchi, crackles. GASTROINTESTINAL: Abdomen soft, non tender no palpable masses. Bowel sounds present. no rebound or guarding. MUSCULOSKELETAL:? No cyanosis or edema, no visible joint swelling. NEUROLOGICAL: CN II-XII grossly intact. No focal deficits. Sensation intact, symmetric. Slightly slow to respond to questions however was appropriate PSYCHIATRIC: Awake and alert, not agitated, normal mood and affect. SKIN: No obvious rashes, patient appears slightly jaundiced on my exam however family notes that patient appears to be at baseline, decreased turgor. Objective Labs 06/28/25 05:02 06/28/25 05:02 Labs: Laboratory Results - last 24 hr 06/28/25 05:02 WBC 10.9 RBC 3.32 L Hgb 9.5 L Hct 31.3 L MCV 94 MCH 28.6 MCHC 30.4 L RDW Std Deviation 56.5 H Plt Count 212 Neut % (Auto) 63 Lymph % (Auto) 20 [place] % (Auto) 12 Eos % (Auto) 1 Baso % (Auto) 1 Neut # (Auto) 6.9 Lymph # (Auto) 2.2 [place] # (Auto) 1.3 H Eos # (Auto) 0.1 Baso # (Auto) 0.1 Immature Gran # (Auto) 0.30 H Absolute Nucleated RBC 0.00 Immature Gran % 3 H Nucleated RBC % 0 Sodium 139 Potassium 3.9 Chloride 101 Carbon Dioxide 25.7 Anion Gap 12 BUN 23 Creatinine 3.5 H Estim Creat Clear Calc 14.6 L eGFR 14 L* BUN/Creatinine Ratio 7 L Glucose 128 H Calculated Osmolality 283 Calcium 9.8 Corrected Calcium 9.8 Phosphorus 4.5 Magnesium 2.2 Total Bilirubin 0.5 AST 10 ALT < 7 L Alkaline Phosphatase 95 Total Protein 6.0 Albumin 4.3 Globulin 1.7 L Albumin/Globulin Ratio 2.5 H Random Vancomycin 20.6 ABG Interpretation ABG results: 06/25/25 12:30 ABG pH 7.33 L ABG pCO2 43 ABG pO2 143 H D ABG HCO3 23 ABG O2 Saturation 98 ABG Base Excess -3 Quality Measures Quality Measures VTE prophylaxis Assessment & Plan Assessment Current Active Medications: Generic Name Dose Route Start Last Admin Trade Name Freq PRN Reason Stop Dose Admin Acetaminophen 650 mg 06/25/25 08:16 Acetaminophen 325 Mg Tablet PO 07/25/25 08:15 Q6H PRN PAIN OR FEVER > 101 Aspirin 81 mg 06/25/25 09:00 06/27/25 09:46 Aspirin Ec 81 Mg Tabec PO 07/25/25 08:59 81 mg QDAY ALEX Administration Atorvastatin Calcium 40 mg 06/26/25 21:00 06/27/25 20:45 Atorvastatin Calcium 20 Mg Tablet PO 07/26/25 20:59 40 mg HS ALEX Administration Clopidogrel Bisulfate 75 mg 06/25/25 09:00 06/27/25 09:46 Clopidogrel Bisulfate 75 Mg Tablet PO 07/25/25 08:59 75 mg QDAY ALEX Administration Duloxetine HCl 30 mg 06/26/25 09:00 06/27/25 20:45 Duloxetine Hcl 30 Mg Capsule PO 07/26/25 08:59 30 mg BID ALEX Administration Heparin Sodium (Porcine) 3,300 unit 06/25/25 11:42 06/26/25 12:03 Heparin Sod Inj 1000 Unit/Ml Vial 10 Ml INDWELLCAT 07/09/25 11:41 3,300 unit PRN PRN Administration DIALYSIS Albumin Human 25 gm in 100 mls @ 100 mls/hr 06/26/25 09:40 06/27/25 11:46 Albuminex 25% Ivpb IV Infused PRN PRN Infusion DIALYSIS Insulin Human Lispro 0 unit 06/27/25 21:00 06/27/25 20:52 Insulin Lispro (Admelog) 1 Unit/0.01 Ml Unit SC 07/26/25 17:59 Not Given ACHS ALEX Protocol Labetalol HCl 10 mg 06/26/25 08:29 06/26/25 16:30 Labetalol Inj 5 Mg/Ml Vial 20 Ml IVP 07/25/25 08:16 10 mg Q4H PRN Administration SBP > 150 Levetiracetam 1,000 mg 06/26/25 09:00 06/27/25 20:45 Levetiracetam Inj 100 Mg/Ml Vial 5ml IVP 07/26/25 08:59 1,000 mg Q12HR ALEX Administration Lorazepam 2 mg 06/25/25 12:20 Lorazepam 2 Mg/Ml Vial IVP 06/30/25 12:19 Q15MIN PRN Seizure Activity Metoclopramide HCl 5 mg 06/25/25 11:15 Metoclopramide Inj 5 Mg/Ml Vial 2 Ml IVP 07/25/25 13:59 Q8HR PRN nausea Protocol Ondansetron HCl 4 mg 06/25/25 08:16 Ondansetron Inj 2 Mg/Ml Inj 2 Ml IV 07/25/25 08:15 Q6H PRN NAUSEA OR VOMITING Protocol Pantoprazole Sodium 40 mg 06/25/25 09:00 06/27/25 08:03 Pantoprazole Inj 40 Mg Vial IVP 07/25/25 08:59 40 mg QDAY ALEX Administration Pharmacy Consult 1 each 06/25/25 12:21 Pharmacy Renal Dose Adjustment 1 Ea XX 07/25/25 12:20 PRN PRN CONSULT Pharmacy Consult 1 each 06/28/25 09:00 Vancomycin Pharmacy To Dose 1 Each Each IV 07/28/25 08:59 QDAY PRN CONSULT Ropinirole HCl 0.25 mg 06/26/25 21:00 06/27/25 20:45 Ropinirole Hcl 0.25 Mg Tablet PO 07/26/25 20:59 0.25 mg HS ALEX Administration Sennosides 2 tab 06/25/25 09:00 Senna Tablet PO 07/25/25 08:59 BID PRN CONSTIPATION Protocol Valsartan 40 mg 06/27/25 08:36 06/27/25 14:43 Valsartan 40 Mg Tablet PO 07/26/25 08:59 Not Given QDAY ALEX Plan Patient is a 64-year-old female with past medical history of DM, ESRD, HTN, seizure disorder, CVA, CAD with open heart surgery, bradycardia with pacemaker, press syndrome x 3 presenting to the hospital for altered mentation/somnolence/difficulty to arouse on 06/25/2025; patient was admitted for altered mentation. #Acute encephalopathy 2/2 #PRES syndrome #? Polypharmacy suspected #Hypertensive emergency #History of HTN #Seizure disorder Family states that she has had difficulty to arouse for a few days, after she had taken Xanax and a pain pill . Of note family endorses use of marijuana for appetite stimulation, and pharmacy notes history of previous [facility] prescription this year. Patient is likely not septic, while the blood pressure is elevated, they are not tachycardic or tachypneic or have a fever; admission WBCs were 14.2. CT head negative for hemorrhage, mass effect or midline shift. Patient blood pressure roxy to 204/109 in the ED; treated with labetalol and hydralazine. Latest BP is 124/80 on 06/27/25. Patient had rapid called 06/25/25 for seizure during dialysis; on exam 06/26/25, patient is ANO x 0 and only responds with yeah to questions. EEG 06/25/2025 post seizure shows pattern consistent with PRES syndrome. 06/27/25- Patient A&Ox3, following commands; passed swallow study (recommend puree diet) 06/28: patient continues to be A &O x3, tolerating diet well Plan: - Valsartan 40 mg qd hold for low SBP <100 - labatelol 10 if systolic > 150 - Keppra 1000 BID - Ativan 2 prn Q15min if seizure activity Neurology consulted, thank you for recommendations- BP control to have systolic less than 140, increase Keppra to 1000 twice daily, and repeat EEG in 48 hours Repeat EEG pending, intial eeg with abnormal activity consistent with pres. MRI Brain with Increased white matter signal prominent, Negative for acute hemorrhage, mass effect or midline shift CTM BP Nephrology consulted, thank you for recs- continue with dialysis and IV hypertensives Seizure precautions placed #Staph epidermidis bacteremia Blood cultures taken 06/24/25 positive for Staph epidermidis Plan: ID consulted, started on vancomycin (06/28- ) Within intended 10 to 14-day course remove tunneled catheter remove tunneled dialysis catheter on Monday following a.m. dialysis session and allow for 48-hour catheter break prior to reinsertion #ESRD Patient has ESRD; receives dialysis Monday. Patient follows with Dr Awad Plan: Dialysis MWF avoid nephrotoxic agents, renally dose meds Patient will continue regular dialysis schedule Patient will have dialysis catheter removed on Monday morning following a.m. dialysis #T2DM A1c on 05-29-25 was 5.2. Blood glucose well-controlled. Plan: Insulin sliding scale #Bradycardia with pacemaker #CAD #CVA EKG on 06/25/25 shows no acute changes Plan: Aspirin 81 qhs Atorvastatin 40 qhs Plavix 75 qhs Disposition: Tele, pending removal of tunneled cath given bacteremia. on IV Abx, pending MRI brain and repeat EEG DVT prophylaxis: SCD GI prophylaxis: Protonix 40 twice daily Diet: puree diet Lines: PIV, dialysis catheter CODE STATUS: Full code Plan discussed with my attending Dr. Zepeda and my senior resident Dr. Rashid Ledesma MD PGY1 Attending Provider Attestation/Addendum I Christiano Zepeda MD reviewed the note and agree with the resident's assessment & plan with modifications/additions/exceptions as below. I have personally reviewed labs, imaging, home meds/prior records, examined the patient, formulated and discussed management plan with the IM team. 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 Repeat blood cultures are pending, continue vancomycin, will remove tunneled dialysis catheter on Monday after hemodialysis with plan for reimplantation in 48 hours.
[2025-06-28] MEDS: CLOPIDOGREL BISULFATE 75 MG TABLET PO (08:35)
[2025-06-28] MEDS: ASPIRIN EC 81 MG TABEC PO (08:35)
[2025-06-28] MEDS: DULoxetine HCL 30 MG CAPSULE PO ×2 (08:38→21:02)
[2025-06-28] MEDS: levETIRAcetam INJ 100 MG/ML VIAL 5ML 1000 MG IVP ×2 (08:38→21:02)
--- NOTE | 2025-06-28 11:08 | PCS.ST ---
pt tolerating diet well. Per pt, she prefers to stay on current diet for now, willing to advance tomorrow. STAFF REPORTER will follow up tomorrow for diet advancement.
[2025-06-28] MEDS: INSULIN LISPRO (AdmeLOG) 1 UNIT/0.01 ML UNIT SC ×2 (11:35→21:15)
[2025-06-28] MEDS: ATORVASTATIN CALCIUM 20 MG TABLET 40 MG PO (21:02)
--- NOTE | 2025-06-28 22:46 | RESP.EEG ---
EEG has been completed and is ready for MD interpretation.
--- NOTE | 2025-06-28 23:42 | ESPR_ITS ---
Documentation for date of: 06/28/25 Subjective Subjective Interval history: Patient is in telemetry today at the bedside. No seizures or myoclonic jerks after admission reported. Her mental status is improved back to baseline, moving all 4 extremities. Exam - Neurology Vital Signs Temp Pulse Resp BP Pulse Ox O2 Del Method O2 Flow Rate 98.2 F 82 16 124/66 95 Room Air 2 06/28/25 20:00 06/28/25 21:00 06/28/25 20:00 06/28/25 21:00 06/28/25 20:00 06/28/25 20:00 06/27/25 13:19 Narrative Exam GENERAL APPEARANCE: Well hydrated, well-nourished in no acute distress. HEENT: Normocephalic, atraumatic, extraocular movements intact. Pupils: Equal reacting to light and accommodation NECK: Supple, no JVD or bruits. CARDIOVASULAR: Heart: S1, S2 heard, regular without S3-S4 or murmur no rubs or gallops. LUNGS/CHEST: Clear to auscultation bilaterally. No rails, rhonchi, or wheezing. Normal inspection. ABDOMEN: Soft, nontender, with normal bowel sounds. No pulsatile masses. No rebound, rigidity, or guarding. Normal inspection and palpation. EXTREMITIES: Normal inspection and palpation. No edema, clubbing or cyanosis. SKIN: Warm and dry without rashes. Normal inspection. MUSCULOSKELETAL: No cervical, thoracic, lumbar or midline bony tenderness. Normal inspection. NEURO: Alert, awake and oriented x3. Cranial nerves: II through XII grossly intact. Speech and language: Normal with no dysarthria or dysphasia. Motor system: Tone and bulk: Normal: Strength: 5 out of 5 in all 4 extremities; No pronator drift noted. Deep tendon reflexes: 2+ bilaterally symmetrical. Plantar reflex: Downgoing bilaterally. Sensory system: Intact to all modalities of sensation bilaterally. Coordination: Intact to [id number] and [id number]-[id number] test bilaterally. No ataxia, no dysmetria, or dysdiadochokinesia noted. No intention tremors noted. Gait: Not tested. No signs of meningeal irritation noted. PSYCHIATRIC: Normal mood and affect. Objective Labs 06/28/25 05:02 06/28/25 05:02 Labs: Laboratory Results - last 24 hr 06/28/25 05:02 WBC 10.9 RBC 3.32 L Hgb 9.5 L Hct 31.3 L MCV 94 MCH 28.6 MCHC 30.4 L RDW Std Deviation 56.5 H Plt Count 212 Neut % (Auto) 63 Lymph % (Auto) 20 [place] % (Auto) 12 Eos % (Auto) 1 Baso % (Auto) 1 Neut # (Auto) 6.9 Lymph # (Auto) 2.2 [place] # (Auto) 1.3 H Eos # (Auto) 0.1 Baso # (Auto) 0.1 Immature Gran # (Auto) 0.30 H Absolute Nucleated RBC 0.00 Immature Gran % 3 H Nucleated RBC % 0 Sodium 139 Potassium 3.9 Chloride 101 Carbon Dioxide 25.7 Anion Gap 12 BUN 23 Creatinine 3.5 H Estim Creat Clear Calc 14.6 L eGFR 14 L* BUN/Creatinine Ratio 7 L Glucose 128 H Calculated Osmolality 283 Calcium 9.8 Corrected Calcium 9.8 Phosphorus 4.5 Magnesium 2.2 Total Bilirubin 0.5 AST 10 ALT < 7 L Alkaline Phosphatase 95 Total Protein 6.0 Albumin 4.3 Globulin 1.7 L Albumin/Globulin Ratio 2.5 H Random Vancomycin 20.6 ABG Interpretation ABG results: 06/25/25 12:30 ABG pH 7.33 L ABG pCO2 43 ABG pO2 143 H D ABG HCO3 23 ABG O2 Saturation 98 ABG Base Excess -3 Assessment & Plan Assessment and plan (1) Altered mental status: Status: Resolved Assessment and plan: (1) Altered mental status: Likely secondary to hypertensive encephalopathy. Initial EEG findings show periodic generalized paroxysmal epileptiform discharges consistent with seizures. Will keep her on higher dose of Keppra and aggressive control of her blood pressure. MRI brain negative for posterior reversible encephalopathy syndrome. Follow-up with repeat EEG.
[2025-06-29] VITALS (10 sets, daily range): BP systolic 98–123; BP diastolic 55–74; PULSE 79–92; RESP 13–98; TEMP 36.1–36.8; O2SAT 93–97
[2025-06-29 01:00] LABS: Collection Type, Urine Catheter
[2025-06-29 01:23] LABS: Bilirubin,Urine Negative (Negative); Blood,Urine 2+ (Negative); Clarity,Urine Turbid (Clear/Hazy); Glucose, Urine Negative (Negative); Hyaline Casts,Urine < 1 /hpf (0-1); Ketones,Urine Negative (Negative); Leukocyte Esterase,Urine Positive (Negative); Nitrite,Urine Negative (Negative); PH,Urine 6.5 (5.0-7.0); Protein,Urine 3+ (Neg - Trace); RBC,Urine 1 /hpf (0-3); Specific Gravity,Urine 1.015 (1.001-1.035); Squamous Epithelial Cell,Urine 1 /hpf (0-5); Urobilinogen,Urine Negative mg/dL (0.0-1.0); WBC,Urine 324 /hpf (0-5)
[2025-06-29 01:24] LABS: Color,Urine Lt-Orange (Lt Yel-Yel); Culture Indicated,Urine Yes
[2025-06-29] MEDS: ONDANSETRON INJ 2 MG/ML INJ 2 ML 4 MG IV (05:56)
[2025-06-29 06:44] LABS: Vancomycin,Random 17.9 mcg/mL
[2025-06-29] MEDS: levETIRAcetam INJ 100 MG/ML VIAL 5ML 1000 MG IVP ×2 (09:04→21:13)
[2025-06-29] MEDS: CLOPIDOGREL BISULFATE 75 MG TABLET PO (09:04)
[2025-06-29] MEDS: DULoxetine HCL 30 MG CAPSULE PO ×2 (09:04→21:13)
[2025-06-29] MEDS: ASPIRIN EC 81 MG TABEC PO (09:04)
[2025-06-29] MEDS: VALSARTAN 40 MG TABLET PO (09:05)
--- NOTE | 2025-06-29 09:07 | ESPR_ITS ---
<Statement entered by Conchita Zepeda MD - 06/29/25 16:46> Patient is seen at bedside. Overnight team reported patient had urinary retention on bladder scan requiring straight cath once, bladder scan is scheduled every 4 hours. This patient had 2 episodes of nonbilious and nonbloody emesis this morning. Patient has significant improved mentation she is alert and oriented to time place and is able to provide detailed history. Currently patient is requiring tunneled catheter removal scheduled for Monday after dialysis session. Repeat blood cultures on 06/26 grew staph hominis sensitive to vancomycin. Urinalysis is positive for leukocyte esterase and pyuria with WBC of 324 will start patient on Rocephin . Patient was seen and examined by me personally. I have directly supervised and reviewed documentation by the team resident and agree with its findings. ------- Plan of care was discussed with the attending, Dr. Duane Zepeda, PGY-2 Documentation for date of: 06/29/25 Subjective Subjective Interval history: Bladder scan q4h, retaining urine, required straight cath overnight. Patient evaluated at bedside, reports one episode of nonbloody nonbilious vomitus w/o nausea. AOx3, BP WNL Pending repeat EEG read Exam Vital Signs Temp Pulse Resp BP Pulse Ox O2 Del Method O2 Flow Rate 98.2 F 84 16 113/74 93 L Room Air 2 06/29/25 08:00 06/29/25 09:05 06/29/25 08:00 06/29/25 09:05 06/29/25 08:00 06/29/25 08:00 06/27/25 13:19 Narrative Exam General: No acute distress, well nourished Eye: PERRL, EOMI, normal conjunctiva, no scleral icterus HENT: Normocephalic, atraumatic, normal hearing, moist oral mucosa Neck: Supple, non-tender, no JVD, no lymphadenopathy Lungs: Clear to auscultation bilaterally, non-labored respirations, symmetric chest rise, no use of accessory muscles Heart: Normal S1 and S2, no S3 or S4 appreciated. Normal rate and regular rhythm, no murmurs, rubs gallops, or edema. Peripheral pulses intact bilaterally, capillary refill brisk distally Abdomen: Soft, non-tender, non-distended, normal bowel sounds. No guarding or rebound tenderness. Musculoskeletal: Normal range of motion and strength, no tenderness or swelling Skin: Skin is warm, dry, no rashes or lesions. Psychiatric: Cooperative, appropriate mood and affect Neurologic: Mental status: Orientation: Oriented to person, place, time, and situation Communication: Patient is cooperative and can follow simple instructions Language: Speech fluent, normal rate and volume, comprehension intact Cranial nerves: CN II: Visual [place] intact CN III: Pupils equal, round, and reactive to light CN III, IV, : No gaze deviation, no nystagmus Horizontal pursuit: intact Vertical pursuit: intact Ptosis: none CN V: Facial sensation to light touch intact bilaterally at the forehead, cheeks, and jaw line CN VII: Face symmetric, no facial droop appreciated CN VIII: Able to hear and respond to conversation at normal volume, intact to finger rub CN IX, X: Palate elevation symmetric, uvula midline CN XI: Head turn and shoulder shrug strong, symmetric bilaterally CN XII: Normal tongue protrusion without deviation, no fasciculations Motor: Normal bulk and tone No abnormal movements or fasciculations Muscle strength: Shoulder abduction: R 5/5 L 5/5 Elbow flexion: R 5/5 L 5/5 Elbow extension: R 5/5 L 5/5 Hip flexion: R 5/5 L 5/5 Hip extension: R 5/5 L 5/5 Knee flexion: R 5/5 L 5/5 Knee extension: R 5/5 L 5/5 Sensory: RUE: Light touch intact LUE: Light touch intact Chronically decreased sensation to light touch in b/l LE to just above knee and fingertips (2/2 peripheral neuropathy), symmetric Objective Labs 06/29/25 08:43 06/29/25 08:43 Labs: Laboratory Results - last 24 hr 06/29/25 06/29/25 00:50 05:39 Ur Collection Type Catheter Urine Color Lt-[place] A Urine Clarity Turbid A Urine pH 6.5 Ur Specific [place] 1.015 Urine Protein 3+ A Urine Glucose (UA) Negative Urine Ketones Negative Urine Blood 2+ A Urine Nitrite Negative Urine Bilirubin Negative Urine Urobilinogen (Auto) Negative Ur Leukocyte Esterase Positive Urine RBC 1 Urine WBC 324 H Ur Squamous Epith Cells 1 Urine Bacteria None Hyaline Casts < 1 Ur Culture Indicated? Yes Random Vancomycin 17.9 ABG Interpretation ABG results: 06/25/25 12:30 ABG pH 7.33 L ABG pCO2 43 ABG pO2 143 H D ABG HCO3 23 ABG O2 Saturation 98 ABG Base Excess -3 Quality Measures Quality Measures VTE prophylaxis Assessment & Plan Assessment Current Active Medications: Generic Name Dose Route Start Last Admin Trade Name Freq PRN Reason Stop Dose Admin Acetaminophen 650 mg 06/25/25 08:16 Acetaminophen 325 Mg Tablet PO 07/25/25 08:15 Q6H PRN PAIN OR FEVER > 101 Aspirin 81 mg 06/25/25 09:00 06/29/25 09:04 Aspirin Ec 81 Mg Tabec PO 07/25/25 08:59 81 mg QDAY ALEX Administration Atorvastatin Calcium 40 mg 06/26/25 21:00 06/28/25 21:02 Atorvastatin Calcium 20 Mg Tablet PO 07/26/25 20:59 40 mg HS ALEX Administration Clopidogrel Bisulfate 75 mg 06/25/25 09:00 06/29/25 09:04 Clopidogrel Bisulfate 75 Mg Tablet PO 07/25/25 08:59 75 mg QDAY ALEX Administration Duloxetine HCl 30 mg 06/26/25 09:00 06/29/25 09:04 Duloxetine Hcl 30 Mg Capsule PO 07/26/25 08:59 30 mg BID ALEX Administration Heparin Sodium (Porcine) 3,300 unit 06/25/25 11:42 06/26/25 12:03 Heparin Sod Inj 1000 Unit/Ml Vial 10 Ml INDWELLCAT 07/09/25 11:41 3,300 unit PRN PRN Administration DIALYSIS Albumin Human 25 gm in 100 mls @ 100 mls/hr 06/26/25 09:40 06/27/25 11:46 Albuminex 25% Ivpb IV Infused PRN PRN Infusion DIALYSIS Insulin Human Lispro 0 unit 06/27/25 21:00 06/29/25 07:23 Insulin Lispro (Admelog) 1 Unit/0.01 Ml Unit SC 07/26/25 17:59 Not Given ACHS ALEX Protocol Labetalol HCl 10 mg 06/26/25 08:29 06/26/25 16:30 Labetalol Inj 5 Mg/Ml Vial 20 Ml IVP 07/25/25 08:16 10 mg Q4H PRN Administration SBP > 150 Levetiracetam 1,000 mg 06/26/25 09:00 06/29/25 09:04 Levetiracetam Inj 100 Mg/Ml Vial 5ml IVP 07/26/25 08:59 1,000 mg Q12HR ALEX Administration Lorazepam 2 mg 06/25/25 12:20 Lorazepam 2 Mg/Ml Vial IVP 06/30/25 12:19 Q15MIN PRN Seizure Activity Metoclopramide HCl 5 mg 06/25/25 11:15 Metoclopramide Inj 5 Mg/Ml Vial 2 Ml IVP 07/25/25 13:59 Q8HR PRN nausea Protocol Ondansetron HCl 4 mg 06/25/25 08:16 06/29/25 05:56 Ondansetron Inj 2 Mg/Ml Inj 2 Ml IV 07/25/25 08:15 4 mg Q6H PRN Administration NAUSEA OR VOMITING Protocol Pantoprazole Sodium 40 mg 06/25/25 09:00 06/29/25 09:05 Pantoprazole Inj 40 Mg Vial IVP 07/25/25 08:59 40 mg QDAY ALXE Administration Pharmacy Consult 1 each 06/25/25 12:21 Pharmacy Renal Dose Adjustment 1 Ea XX 07/25/25 12:20 PRN PRN CONSULT Pharmacy Consult 1 each 06/28/25 09:00 Vancomycin Pharmacy To Dose 1 Each Each IV 07/28/25 08:59 QDAY PRN CONSULT Ropinirole HCl 0.25 mg 06/26/25 21:00 06/28/25 21:02 Ropinirole Hcl 0.25 Mg Tablet PO 07/26/25 20:59 0.25 mg HS ALEX Administration Sennosides 2 tab 06/25/25 09:00 Senna Tablet PO 07/25/25 08:59 BID PRN CONSTIPATION Protocol Valsartan 40 mg 06/27/25 08:36 06/29/25 09:05 Valsartan 40 Mg Tablet PO 07/26/25 08:59 40 mg QDAY ALEX Administration Plan Patient is a 64-year-old female with past medical history of DM, ESRD, HTN, seizure disorder, CVA, CAD with open heart surgery, bradycardia (3rd degree heart block) with pacemaker, PRES who presented tp the ED 06/25 for altered mentation/somnolence/difficulty to arouse; patient was admitted for acute encephalopathy. #Acute encephalopathy 2/2 #PRES #Polypharmacy #Hypertensive emergency #History of HTN #Seizure disorder Family states that she has had difficulty to arouse for a few days, after she had taken Xanax and a pain pill . Of note family endorses use of marijuana for appetite stimulation, and pharmacy notes history of previous [place] prescription this year. Initially AOx0. BP in ED roxy to 204/109, tx with labetalol and hydralazine IV PRN CT head negative for hemorrhage, mass effect or midline shift MRI Brain with Increased white matter signal prominent, Negative for acute hemorrhage, mass effect or midline shift. Negative for posterior reversible encephalopathy syndrome, per neuro EEG 06/25/2025: periodic generalized paroxysmal epileptiform discharges consistent with seizures. 06/27/25-06/29- Patient A&Ox3, following commands Plan: - Valsartan 40 mg qd (hold for low SBP <100) - labatelol 10 mg IV (if systolic > 150) - Keppra 1000 IV BID - Ativan 2 prn Q15min if seizure activity - Neuro consulted, appreciate recs - Pending repeat EEG read - CTM BP. Aggressive BP control - Nephrology consulted, thank you for recs - continue with dialysis and IV hypertensives - Seizure precautions #Staph epidermidis bacteremia Blood cultures taken 06/24/25 positive for Staph epidermidis Plan: - ID consulted, started on vancomycin (06/28- ) Within intended 10 to 14-day course - Plan to remove tunneled dialysis catheter on Monday following a.m. dialysis session and allow for 48-hour catheter break prior to reinsertion - Consider CHELSY after removal of dialysis catheter #UTI #Hx recurrent UTI Denies dysuria, often does not feel sx of UTI. Nonbloody nonbilious emesis x2, had to straight cath due to UA 3+ protein, 2+ blood, +LE, 324 WBC. Plan: - Ceftriaxone 1 g IV daily (06/29 - ) - Pending urine cx - Blood cx q4h, staight cath PRN #ESRD Patient has ESRD; receives dialysis Monday. Patient follows with Dr Awad Plan: - Dialysis MWF - Albumin 25 g 2/3 bags given - Avoid nephrotoxic agents, renally dose meds - Patient will continue regular dialysis schedule Patient will have dialysis catheter removed on Monday morning following a.m. dialysis #T2DM c/b peripheral neuropathy A1c on 05/29/25 was 5.2. Blood glucose well-controlled. Refuses gabapentin Plan: - Insulin sliding scale ACHS #Bradycardia, 3rd degree heart block s/p pacemaker #Hx CAD #Hx CVA EKG on 06/25/25 shows no acute changes Plan: - Aspirin 81 qhs - Atorvastatin 40 qhs - Plavix 75 qhs #Depression Plan: - Duloxetine 30 mg PO BID (home med) Checklist Dispo: Tele, pending removal of tunneled cath given bacteremia. on IV Abx, pending repeat EEG Lines: PIV, dialysis catheter Diet: carb consistent, mighty shake sugar free with dinner Bowel Reg: senna BID PRN VTE ppx: SCD GI ppx: pantoprazole 40 mg IV daily Pain mgmt: Tylenol PRN Code status: full Plan discussed with Dr. Daniel Zepeda and Dr. Celestina Flaherty MD PGY1 Attending Provider Attestation/Addendum I Christiano Zepeda MD reviewed the note and agree with the resident's assessment & plan with modifications/additions/exceptions as below. I have personally reviewed labs, imaging, home meds/prior records, examined the patient, formulated and discussed management plan with the IM team. A 64-year-old female with history of CABG in the past, PPM, ESRD on HD, hypertensive encephalopathy and intermittent hypotension and hypertension being managed by her move coordinator admitted with hypertensive encephalopathy confirmed on EEG and found to have GPC bacteremia. Had fever overnight, with 2 episodes of nonbilious emesis, developed urinary retention for which straight cath was performed x 2, repeat blood cultures did not show any growth , obtain UA, start on Rocephin for possible UTI, continue vancomycin, will remove tunneled dialysis catheter on Monday after hemodialysis with plan for reimplantation in 48 hours. Requested cardiology to obtain CHELSY for evaluation of endocarditis.
[2025-06-29 09:17] LABS: Basophils # (Auto) 0.1 Thou/mm3 (0.0-0.2); Basophils % (Auto) 1 % (0-2.5); Eosinophils # (Auto) 0.1 Thou/mm3 (0.0-0.5); Eosinophils % (Auto) 1 % (0-10); Hematocrit 32.3 % (36.0-46.0); Hemoglobin 9.9 g/dL (12.0-16.0); Immature Granulocytes Auto 0.40 Thou/mm3 (0.00-0.00); Lymphocytes # (Auto) 1.7 Thou/mm3 (1.0-4.8); Lymphocytes % (Auto) 13 % (10-50); Mean Corpuscular HGB Conc 30.7 g/dl (31.0-37.0); Mean Corpuscular Hemoglobin 29.0 pg (25.0-35.0); Mean Corpuscular Volume 95 fL (80-100); Monocytes # (Auto) 1.1 Thou/mm3 (0.0-0.8); Monocytes % (Auto) 8 % (0-12); Neutrophils # (Auto) 9.6 Thou/mm3 (1.8-7.7); Neutrophils % (Auto) 74 % (37-80); Nucleated Red Blood Cell # 0.00 Thou/mm3 (0.00-0.00); Nucleated Red Blood Cell % 0 /100 WBC (0); Platelet Count 211 Thou/mm3 (140-440); RDW Standard Deviation 55.4 fL (36.4-46.3); Red Blood Count 3.41 Miln/mm3 (4.00-5.20); White Blood Count 12.9 Thou/mm3 (3.6-11.0)
[2025-06-29 09:56] LABS: Alanine Aminotransferase < 7 U/L (10-49); Albumin, Serum 4.2 gm/dL (3.4-4.8); Albumin/Globulin Ratio 2.3 (1.2-2.2); Alkaline Phosphatase 96 U/L (46-116); Anion Gap 14 (7-16); Aspartate Amino Transferase 17 U/L (0-34); BUN/Creatinine Ratio 9 Ratio (12-20); Bilirubin,Total 0.3 mg/dL (0.3-1.2); Blood Urea Nitrogen 45 mg/dL (9-23); Calcium 9.5 mg/dL (8.3-10.6); Calcium (Corrected) 9.5 mg/dL (8.5-10.1); Carbon Dioxide 23.5 mMol/L (20.0-31.0); Chloride 98 mMol/L (98-107); Creatinine (Component) 5.0 mg/dL (0.6-1.3); Estimated Creatinine Clearance 10.7 mL/min (>60); Globulin 1.8 gm/dL (2.3-3.5); Glucose 248 mg/dL (74-106); Osmolality,Calculated 289 (275-295); Potassium 3.8 mMol/L (3.4-5.1); Sodium 135 mMol/L (136-145); Total Protein 6.0 gm/dL (5.7-8.2); eGFR 9 See Note
[2025-06-29] MEDS: cefTRIAXone/D5w 1gm IV premix 1 GM/50 ML BAG IV (11:41)
[2025-06-29 15:23] LABS: OBS Card Expiration Date 02282028; OBS Card Lot # 0124; OBS Developer Expiration Date 12312026; OBS Developer Lot # 124551749; OBS Performed By RAMOJ11; OBS QC OK? Yes; Occult Blood, Stool Negative (Negative)
[2025-06-29] MEDS: METOCLOPRAMIDE INJ 5 MG/ML VIAL 2 ML IVP (16:22)
[2025-06-29] MEDS: ATORVASTATIN CALCIUM 20 MG TABLET 40 MG PO (21:13)
--- NOTE | 2025-06-29 22:55 | PD.RESPRO ---
Documentation for date of: 06/29/25 Subjective Subjective Interval history: Patient was seen at bedside.She denies any complaints of chest pain,Palpitations, shortness of breath.She is controlling Exam Vital Signs Temp Pulse Resp BP Pulse Ox O2 Del Method O2 Flow Rate 97.4 F 89 14 98/55 L 96 Room Air 2 06/29/25 20:00 06/29/25 20:00 06/29/25 20:00 06/29/25 20:00 06/29/25 20:00 06/29/25 20:00 06/27/25 13:19 Objective Labs 06/29/25 08:43 06/29/25 08:43 Labs: Laboratory Results - last 24 hr 06/29/25 06/29/25 06/29/25 00:50 05:39 08:43 WBC 12.9 H RBC 3.41 L Hgb 9.9 L Hct 32.3 L MCV 95 MCH 29.0 MCHC 30.7 L RDW Std Deviation 55.4 H Plt Count 211 Neut % (Auto) 74 Lymph % (Auto) 13 [place] % (Auto) 8 Eos % (Auto) 1 Baso % (Auto) 1 Neut # (Auto) 9.6 H Lymph # (Auto) 1.7 [place] # (Auto) 1.1 H Eos # (Auto) 0.1 Baso # (Auto) 0.1 Immature Gran # (Auto) 0.40 H Absolute Nucleated RBC 0.00 Immature Gran % 3 H Nucleated RBC % 0 Sodium 135 L Potassium 3.8 Chloride 98 Carbon Dioxide 23.5 Anion Gap 14 BUN 45 H Creatinine 5.0 H* D Estim Creat Clear Calc 10.7 L eGFR 9 L* BUN/Creatinine Ratio 9 L Glucose 248 H D Calculated Osmolality 289 Calcium 9.5 Corrected Calcium 9.5 Total Bilirubin 0.3 AST 17 ALT < 7 L Alkaline Phosphatase 96 Total Protein 6.0 Albumin 4.2 Globulin 1.8 L Albumin/Globulin Ratio 2.3 H Ur Collection Type Catheter Urine Color Lt-[place] A Urine Clarity Turbid A Urine pH 6.5 Ur Specific [place] 1.015 Urine Protein 3+ A Urine Glucose (UA) Negative Urine Ketones Negative Urine Blood 2+ A Urine Nitrite Negative Urine Bilirubin Negative Urine Urobilinogen (Auto) Negative Ur Leukocyte Esterase Positive Urine RBC 1 Urine WBC 324 H Ur Squamous Epith Cells 1 Urine Bacteria None Hyaline Casts < 1 Ur Culture Indicated? Yes Stool Occult Blood Random Vancomycin 17.9 06/29/25 10:20 WBC RBC Hgb Hct MCV MCH MCHC RDW Std Deviation Plt Count Neut % (Auto) Lymph % (Auto) [place] % (Auto) Eos % (Auto) Baso % (Auto) Neut # (Auto) Lymph # (Auto) [place] # (Auto) Eos # (Auto) Baso # (Auto) Immature Gran # (Auto) Absolute Nucleated RBC Immature Gran % Nucleated RBC % Sodium Potassium Chloride Carbon Dioxide Anion Gap BUN Creatinine Estim Creat Clear Calc eGFR BUN/Creatinine Ratio Glucose Calculated Osmolality Calcium Corrected Calcium Total Bilirubin AST ALT Alkaline Phosphatase Total Protein Albumin Globulin Albumin/Globulin Ratio Ur Collection Type Urine Color Urine Clarity Urine pH Ur Specific [place] Urine Protein Urine Glucose (UA) Urine Ketones Urine Blood Urine Nitrite Urine Bilirubin Urine Urobilinogen (Auto) Ur Leukocyte Esterase Urine RBC Urine WBC Ur Squamous Epith Cells Urine Bacteria Hyaline Casts Ur Culture Indicated? Stool Occult Blood Negative Random Vancomycin ABG Interpretation ABG results: 06/25/25 12:30 ABG pH 7.33 L ABG pCO2 43 ABG pO2 143 H D ABG HCO3 23 ABG O2 Saturation 98 ABG Base Excess -3 Quality Measures Quality Measures VTE prophylaxis Assessment & Plan Assessment Current Active Medications: Generic Name Dose Route Start Last Admin Trade Name Freq PRN Reason Stop Dose Admin Acetaminophen 650 mg 06/25/25 08:16 Acetaminophen 325 Mg Tablet PO 07/25/25 08:15 Q6H PRN PAIN OR FEVER > 101 Aspirin 81 mg 06/25/25 09:00 06/29/25 09:04 Aspirin Ec 81 Mg Tabec PO 07/25/25 08:59 81 mg On Hold: 06/29/25 16:58 QDAY ALEX Administration Atorvastatin Calcium 40 mg 06/26/25 21:00 06/29/25 21:13 Atorvastatin Calcium 20 Mg Tablet PO 07/26/25 20:59 40 mg HS ALEX Administration Clopidogrel Bisulfate 75 mg 06/25/25 09:00 06/29/25 09:04 Clopidogrel Bisulfate 75 Mg Tablet PO 07/25/25 08:59 75 mg On Hold: 06/29/25 16:57 QDAY ALEX Administration Duloxetine HCl 30 mg 06/26/25 09:00 06/29/25 21:13 Duloxetine Hcl 30 Mg Capsule PO 07/26/25 08:59 30 mg BID ALEX Administration Heparin Sodium (Porcine) 3,300 unit 06/25/25 11:42 06/26/25 12:03 Heparin Sod Inj 1000 Unit/Ml Vial 10 Ml INDWELLCAT 07/09/25 11:41 3,300 unit On Hold: 06/29/25 16:58 PRN PRN Administration DIALYSIS Albumin Human 25 gm in 100 mls @ 100 mls/hr 06/26/25 09:40 06/27/25 11:46 Albuminex 25% Ivpb IV Infused PRN PRN Infusion DIALYSIS Ceftriaxone Sodium/Dextrose 1 gm in 50 mls @ 100 mls/hr 06/29/25 11:30 06/29/25 11:41 Rocephin/D5w 1gm Iv Premix IV 07/06/25 11:29 100 mls/hr QDAY ALEX Administration Insulin Human Lispro 0 unit 06/27/25 21:00 06/29/25 21:14 Insulin Lispro (Admelog) 1 Unit/0.01 Ml Unit SC 07/26/25 17:59 Not Given ACHS ALEX Protocol Labetalol HCl 10 mg 06/26/25 08:29 06/26/25 16:30 Labetalol Inj 5 Mg/Ml Vial 20 Ml IVP 07/25/25 08:16 10 mg Q4H PRN Administration SBP > 150 Levetiracetam 1,000 mg 06/26/25 09:00 06/29/25 21:13 Levetiracetam Inj 100 Mg/Ml Vial 5ml IVP 07/26/25 08:59 1,000 mg Q12HR ALEX Administration Lorazepam 2 mg 06/25/25 12:20 Lorazepam 2 Mg/Ml Vial IVP 06/30/25 12:19 Q15MIN PRN Seizure Activity Metoclopramide HCl 5 mg 06/25/25 11:15 Metoclopramide Inj 5 Mg/Ml Vial 2 Ml IVP 07/25/25 13:59 Q8HR PRN nausea Protocol Metoclopramide HCl 5 mg 06/29/25 16:15 06/29/25 16:22 Metoclopramide Inj 5 Mg/Ml Vial 2 Ml IVP 07/29/25 16:14 5 mg Q6HR ALEX Administration Protocol Ondansetron HCl 4 mg 06/25/25 08:16 06/29/25 05:56 Ondansetron Inj 2 Mg/Ml Inj 2 Ml IV 07/25/25 08:15 4 mg Q6H PRN Administration NAUSEA OR VOMITING Protocol Pantoprazole Sodium 40 mg 06/25/25 09:00 06/29/25 09:05 Pantoprazole Inj 40 Mg Vial IVP 07/25/25 08:59 40 mg QDAY ALEX Administration Pharmacy Consult 1 each 06/25/25 12:21 Pharmacy Renal Dose Adjustment 1 Ea XX 07/25/25 12:20 PRN PRN CONSULT Pharmacy Consult 1 each 06/28/25 09:00 Vancomycin Pharmacy To Dose 1 Each Each IV 07/28/25 08:59 QDAY PRN CONSULT Ropinirole HCl 0.25 mg 06/26/25 21:00 06/29/25 21:13 Ropinirole Hcl 0.25 Mg Tablet PO 07/26/25 20:59 0.25 mg HS ALEX Administration Sennosides 2 tab 06/25/25 09:00 Senna Tablet PO 07/25/25 08:59 BID PRN CONSTIPATION Protocol Valsartan 40 mg 06/27/25 08:36 06/29/25 09:05 Valsartan 40 Mg Tablet PO 07/26/25 08:59 40 mg QDAY ALEX Administration
--- NOTE | 2025-06-29 23:03 | PD.RESCONSUL ---
HPI Data of Consult Requesting Physician: Lenore Osullivan DO Admitting Provider: Lenore Osullivan DO Attending Provider: Lenore Osullivan DO Primary Care Provider: Catalina Angulo PA-C([facility] Consult Narrative Reason for consult: For possible Infective Endocarditis History of present illness: This is a 60-year-old female male with a past medical history of CAD s/p CABG in May 2024 after elective cardiac authorization for a positive stress test, status post pacemaker placed in 2024 for symptomatic AV block, stage renal disease on hemodialysis on Monday and Monday, type 2 diabetes mellitus, history of gastric sleeve operation, 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 He also tells that the patient runs high blood pressure whenever she gets confused in the range of 200s. According to him Patient speaks non sense and do actions like-trying to drink water from remote and gets confused over the days.She had prior episodes of similar complaints in the past and got admitted in the early May as well. And he stated she usually takes 3 days to recover from the episodes. Hospitalization course: Patient was hypertensive 170/118 on arrival, given hydralazine and labetalol and she was given Keppra for her seizure-like activity and when she was on dialysis she had another episode of seizure-like activity. As Per the neurology recommendation Keppra was increased to 1000mg. EKG showed normal sinus rhythm during the ED admission. CT brain during the ED admission shows no mass lesions, hemorrhage, or midline shift. EEG was done which showed periodic paroxysmal epileptic discharges which consistent with seizures and MRI on 06/27 shows chronic microvascular white matter changes. Blood culture collected on 06/24 grown S epidermidis in 1 out of 2 tubes and the repeated blood culture on 06/26 grown S hominis and repeated blood culture on 06/28 showed no growth of microorganisms and primary team started on vancomycin ,urine analysis on 06/29 showing urine bacteria?324, leukocyte esterase positive consistent with UTI. Transthoracic echo done on 06/25 did not show any vegetations and showing grade 1 diastolic dysfunction with ejection fraction of 55 to 60% with mild AV sclerosis. Today during my examination she was able to answer the questions very well and tells that she usually runs high blood pressure whenever she gets the symptoms of altered mental status. She says she takes labetalol when she gets blood pressure greater than 180 and midodrine in for blood pressure less than 100. She said that she usually does not take any blood pressure medications manage her blood pressure in between 100-180. She denies any chest pain, chest palpitations, shortness of breath but endorses she does not get any sensation of UTI infection. PMH: DM, ESRD, HTN, seizure disorder, CVA, CAD with open heart surgery, bradycardia with pacemaker, press syndrome x 3 PSH: Hysterectomy, section x 3, open heart surgery, cholecystectomy, gastric bypass Allergies: NKDA Social history: Endorses use of marijuana cc:: cc: Lenore Osullivan DO Review of Systems Review of Systems Systems Reviewed: All systems reviewed, normal except as documented Exam Vital Signs Temp Pulse Resp BP Pulse Ox O2 Del Method O2 Flow Rate 97.4 F 89 14 98/55 L 96 Room Air 2 06/29/25 20:00 06/29/25 20:00 06/29/25 20:00 06/29/25 20:00 06/29/25 20:00 06/29/25 20:00 06/27/25 13:19 Narrative Exam GENERAL: NAD, AAOx3 HEENT: Moist mucosa. Eyes open, symmetrical, & clear CARDIO: Regular rhythm Noted. No Murmurs. PULM: No noted coughing/dyspnea CTA B/L, no R/W/R GI: Abdomen soft, nondistended, Non Tender. SKIN/MSK/EXT: No wounds/rashes/amputations, no pain on palpation. Pedal pulses present B/L. Dialysis Catheter present on her Rt arm. NEURO: AAOx3, no focal neuro deficits, able to move all 4 extremities Results Labs 07/01/25 04:41 07/01/25 04:41 Labs: Short CBC 06/29/25 Range/Units 08:43 WBC 12.9 H (3.6-11.0) Thou/mm3 Hgb 9.9 L (12.0-16.0) g/dL Hct 32.3 L (36.0-46.0) % Plt Count 211 (140-440) Thou/mm3 BMP 11/02/25 08:43 Sodium 135 L Potassium 3.8 Chloride 98 Carbon Dioxide 23.5 BUN 45 H Creatinine 5.0 H* D Glucose 248 H D Calcium 9.5 Liver Function 06/29/25 Range/Units 08:43 Total Bilirubin 0.3 (0.3-1.2) mg/dL AST 17 (0-34) U/L ALT < 7 L (10-49) U/L Alkaline Phosphatase 96 (46-116) U/L Albumin 4.2 (3.4-4.8) gm/dL Urine 06/29/25 Range/Units 00:50 Urine Color Lt-[place] A (Lt Yel-Yel) Urine Clarity Turbid A (Clear/Hazy) Urine pH 6.5 (5.0-7.0) Ur Specific [place] 1.015 (1.001-1.035) Urine Protein 3+ A (Neg - Trace) Urine Glucose (UA) Negative (Negative) ABG Interpretation ABG results: 06/25/25 12:30 ABG pH 7.33 L ABG pCO2 43 ABG pO2 143 H D ABG HCO3 23 ABG O2 Saturation 98 ABG Base Excess -3 Quality Measures Quality Measures VTE prophylaxis Medications Home Medications and Allergies Home Medications ?Medication ?Instructions ?Recorded ?Confirmed ?Type aspirin 81 mg tablet,delayed 81 mg PO HS 11/28/24 06/25/25 History release (Adult Low Dose Aspirin) atorvastatin 40 mg tablet 40 mg PO HS 11/28/24 06/25/25 History clopidogrel 75 mg tablet 75 mg PO HS 11/28/24 06/25/25 History duloxetine 30 mg capsule,delayed 30 mg PO BID 11/28/24 06/25/25 History release (Cymbalta) linagliptin 5 mg tablet (Tradjenta) 5 mg PO HS 11/28/24 06/25/25 History ascorbate calcium (vitamin C) 500 1 g PO HS 12/01/24 06/25/25 History mg tablet meclizine 25 mg tablet 25 mg PO PRN PRN dizziness 01/08/25 06/25/25 History alprazolam 1 mg tablet 0.25 mg PO PRN PRN anxiety 02/19/25 06/25/25 History cetirizine 10 mg capsule (All Day 10 mg PO QDAY 02/19/25 06/25/25 History Allergy (cetirizine)) metoclopramide HCl 10 mg tablet 10 mg PO Q4H PRN nausea 02/19/25 06/25/25 History (Reglan) pantoprazole 40 mg tablet,delayed 40 mg PO HS 02/19/25 06/25/25 History release sevelamer carbonate 800 mg tablet 800 mg PO TID 02/19/25 06/25/25 History (Renvela) docusate sodium 100 mg capsule 100 mg PO BID 05/28/25 06/25/25 History labetalol 100 mg tablet 50 mg PO DAILY PRN blood pressure 05/28/25 06/25/25 History levetiracetam 500 mg 1,000 mg PO .PM 05/28/25 06/25/25 History tablet,extended release 24 hr midodrine 5 mg tablet 10 mg PO TID PRN low blood pressure 05/28/25 06/25/25 History ropinirole 0.25 mg tablet 0.25 mg PO HS 05/28/25 06/25/25 History Allergies Allergy/AdvReac Type Severity Reaction Status Date / Time No Known Allergies Allergy Verified 06/24/25 12:31 Visit Medications Acetaminophen (Acetaminophen 325 Mg Tablet) 650 mg PO Q6H PRN PRN Reason: PAIN OR FEVER > 101 Stop: 07/25/25 08:15 Aspirin (Aspirin Ec 81 Mg Tabec) 81 mg PO QDAY [facility] On Hold: 06/29/25 16:58 Stop: 07/25/25 08:59 Last Admin: 06/29/25 09:04 Dose: 81 mg Atorvastatin Calcium (Atorvastatin Calcium 20 Mg Tablet) 40 mg PO [facility] Stop: 07/26/25 20:59 Last Admin: 06/29/25 21:13 Dose: 40 mg Clopidogrel Bisulfate (Clopidogrel Bisulfate 75 Mg Tablet) 75 mg PO QDAY [facility] On Hold: 06/29/25 16:57 Stop: 07/25/25 08:59 Last Admin: 06/29/25 09:04 Dose: 75 mg Duloxetine HCl (Duloxetine Hcl 30 Mg Capsule) 30 mg PO BID [facility] Stop: 07/26/25 08:59 Last Admin: 06/29/25 21:13 Dose: 30 mg Heparin Sodium (Porcine) (Heparin Sod Inj 1000 Unit/Ml Vial 10 Ml) 3,300 unit [facility] PRN PRN On Hold: 06/29/25 16:58 PRN Reason: DIALYSIS Stop: 07/09/25 11:41 Last Admin: 06/26/25 12:03 Dose: 3,300 unit Albumin Human (Albuminex 25% Ivpb) 25 gm in 100 mls @ 100 mls/hr IV PRN PRN PRN Reason: DIALYSIS Last Infusion: 06/27/25 11:46 Dose: Infused Ceftriaxone Sodium/Dextrose (Rocephin/D5w 1gm Iv Premix) 1 gm in 50 mls @ 100 mls/hr IV QDAY [facility] Stop: 07/06/25 11:29 Last Admin: 06/29/25 11:41 Dose: 100 mls/hr Insulin Human Lispro (Insulin Lispro (Admelog) 1 Unit/0.01 Ml Unit) [facility]; Protocol Stop: 07/26/25 17:59 Last Admin: 06/29/25 21:14 Dose: Not Given Labetalol HCl (Labetalol Inj 5 Mg/Ml Vial 20 Ml) 10 mg IVP Q4H PRN PRN Reason: SBP > 150 Stop: 07/25/25 08:16 Last Admin: 06/26/25 16:30 Dose: 10 mg Levetiracetam (Levetiracetam Inj 100 Mg/Ml Vial 5ml) 1,000 mg IVP Q12HR [facility] Stop: 07/26/25 08:59 Last Admin: 06/29/25 21:13 Dose: 1,000 mg Lorazepam (Lorazepam 2 Mg/Ml Vial) 2 mg IVP Q15MIN PRN PRN Reason: Seizure Activity Stop: 06/30/25 12:19 Metoclopramide HCl (Metoclopramide Inj 5 Mg/Ml Vial 2 Ml) 5 mg IVP Q8HR PRN; Protocol PRN Reason: nausea Stop: 07/25/25 13:59 Metoclopramide HCl (Metoclopramide Inj 5 Mg/Ml Vial 2 Ml) 5 mg IVP Q6HR [facility]; Protocol Stop: 07/29/25 16:14 Last Admin: 06/29/25 16:22 Dose: 5 mg Ondansetron HCl (Ondansetron Inj 2 Mg/Ml Inj 2 Ml) 4 mg IV Q6H PRN; Protocol PRN Reason: NAUSEA OR VOMITING Stop: 07/25/25 08:15 Last Admin: 06/29/25 05:56 Dose: 4 mg Pantoprazole Sodium (Pantoprazole Inj 40 Mg Vial) 40 mg IVP QDAY [facility] Stop: 07/25/25 08:59 Last Admin: 06/29/25 09:05 Dose: 40 mg Pharmacy Consult (Pharmacy Renal Dose Adjustment 1 Ea) 1 each XX PRN PRN PRN Reason: CONSULT Stop: 07/25/25 12:20 Pharmacy Consult (Vancomycin Pharmacy To Dose 1 Each Each) 1 each IV QDAY PRN PRN Reason: CONSULT Stop: 07/28/25 08:59 Ropinirole HCl (Ropinirole Hcl 0.25 Mg Tablet) 0.25 mg PO HS [facility]LEX Stop: 07/26/25 20:59 Last Admin: 06/29/25 21:13 Dose: 0.25 mg Sennosides (Senna Tablet) 2 tab PO BID PRN; Protocol PRN Reason: CONSTIPATION Stop: 07/25/25 08:59 Valsartan (Valsartan 40 Mg Tablet) 40 mg PO QDAY [facility] Stop: 07/26/25 08:59 Last Admin: 06/29/25 09:05 Dose: 40 mg Discontinued Medications Dextrose (Dextrose 50%-Water Inj 50 Ml Syringe) 25 ml IV Q15MIN PRN PRN Reason: BG 50-70 responsive npo pt Stop: 07/25/25 09:39 Dextrose (Dextrose 50%-Water Inj 50 Ml Syringe) 50 ml IV Q15MIN PRN PRN Reason: BG <50 OR BG <70 & pt unresponsive Stop: 07/25/25 09:39 Epoetin Kendrick (Epoetin Kendrick-Epbx Inj 10,000 Unit/Ml Vial (Non-Esrd)) 10,000 unit IV X1 ONE Stop: 06/27/25 12:01 Last Admin: 06/27/25 12:42 Dose: 10,000 unit Glucagon (Glucagon Inj 1 Mg Vial) 1 mg IM Q15MIN PRN PRN Reason: BG <70, and no IV access Hydralazine HCl (Hydralazine Inj 20 Mg/Ml Vial) 10 mg IVP X1 ONE Stop: 06/25/25 01:14 Last Admin: 06/25/25 01:35 Dose: 10 mg Hydralazine HCl (Hydralazine Inj 20 Mg/Ml Vial) 10 mg IV X1 ONE Stop: 06/25/25 21:54 Last Admin: 06/25/25 22:14 Dose: 10 mg Sodium Chloride (Ns) 1,000 mls @ 1,000 mls/hr IV .Q1H ONE Stop: 06/25/25 02:44 Last Infusion: 06/25/25 04:34 Dose: Infused Vancomycin HCl (Vancomycin/Water 1250 Mg Ivpb) 250 mls @ 120 mls/hr IV X1 ONE; Protocol Stop: 06/25/25 19:49 Last Admin: 06/25/25 18:21 Dose: 120 mls/hr Magnesium Sulfate/Dextrose (Magnesium Sulfate Ivpb) 1 gm in 100 mls @ 100 mls/hr IV X1 ONE Stop: 06/27/25 08:28 Last Admin: 06/27/25 08:02 Dose: 100 mls/hr Vancomycin/Sodium Chloride (Vancomycin/Ns 750 Mg Ivpb) 750 mg in 150 mls @ 120 mls/hr IV X1 ONE Stop: 06/27/25 11:14 Last Admin: 06/27/25 13:51 Dose: 120 mls/hr Insulin Human Lispro (Insulin Lispro (Admelog) 1 Unit/0.01 Ml Unit) 0 unit SC Q6H [facility]; Protocol Stop: 07/25/25 09:44 Last Admin: 06/26/25 13:48 Dose: Not Given Insulin Human Lispro (Insulin Lispro (Admelog) 1 Unit/0.01 Ml Unit) 0 unit SC Q6HR [facility]; Protocol Stop: 07/26/25 17:59 Last Admin: 06/27/25 17:24 Dose: Not Given Labetalol HCl (Labetalol Inj 5 Mg/Ml Vial 20 Ml) 10 mg IVP X1 ONE Stop: 06/25/25 05:34 Last Admin: 06/25/25 05:38 Dose: 10 mg Labetalol HCl (Labetalol Inj 5 Mg/Ml Vial 20 Ml) 10 mg IVP Q4H PRN PRN Reason: SBP > 180 Stop: 07/25/25 08:16 Last Admin: 06/25/25 08:37 Dose: 10 mg Labetalol HCl (Labetalol Inj 5 Mg/Ml Vial 20 Ml) 10 mg IVP Q4H PRN PRN Reason: Sbp > 165 Stop: 07/25/25 08:16 Last Admin: 06/25/25 20:18 Dose: 10 mg Labetalol HCl (Labetalol Inj 5 Mg/Ml Vial 20 Ml) 10 mg IVP X1 ONE Stop: 06/26/25 18:45 Last Admin: 06/26/25 20:31 Dose: 10 mg Levetiracetam (Levetiracetam Inj 100 Mg/Ml Vial 5ml) 1,000 mg IVP X1 ONE Stop: 06/25/25 01:14 Last Admin: 06/25/25 01:34 Dose: 1,000 mg Levetiracetam (Levetiracetam Inj 100 Mg/Ml Vial 5ml) 500 mg IVP Q12HR [facility] Stop: 07/25/25 08:59 Last Admin: 06/25/25 20:46 Dose: 500 mg Levetiracetam (Levetiracetam Inj 100 Mg/Ml Vial 5ml) 500 mg IV X1 ONE Stop: 06/25/25 21:28 Last Admin: 06/25/25 22:01 Dose: 500 mg Metoclopramide HCl (Metoclopramide Inj 5 Mg/Ml Vial 2 Ml) 5 mg IVP Q6HR [facility]; Protocol Stop: 07/29/25 17:59 Pharmacy Consult (Vancomycin Pharmacy To Dose 1 Each Each) 1 each IV QDAY [facility] Stop: 07/25/25 17:14 Last Admin: 06/26/25 17:24 Dose: Not Given Valsartan (Valsartan 40 Mg Tablet) 40 mg PO QDAY [facility] Stop: 07/26/25 08:59 Last Admin: 06/26/25 13:47 Dose: Not Given Assessment & Plan Plan This is a 60-year-old female male with a past medical history of CAD s/p CABG in May 2024 after elective cardiac authorization for a positive stress test, status post pacemaker placed in 2024 for symptomatic AV block, stage renal disease on hemodialysis on Monday and Monday, type 2 diabetes mellitus, history of gastric sleeve operation, 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 S epidermidis and 06/26 with a S.Hominis and negative blood culture on 06/28. She had a pacemaker placed. Primary team thinks there is a possibility of infective endocarditis which could not be picked up on transthoracic echo that was done on 06/25. Primary team are also planning to remove her dialysis catheter and give it 48 hours free interval before reinserting Planning for an Trans esophageal echo to look for any vegetations. Discussed with the patient regarding transesophageal echo Patient denies any kind of swallowing problems or any kind of esophageal interventions or previous surgeries. Patient denies any kind of gastric ulcers bleeding and any other hematemesis or hematochezia. Patient denies any issues with anesthesia previously. Patient explained all the risks, benefits and alternatives of CHELSY including the risk of perforation, bleeding, respiratory failure secondary to sedation, injury to teeth gums esophagus and stomach. Patient understands all risks and benefits and provided consent for the procedure. We will keep her n.p.o. overnight and plan for CHELSY in the morning. # CAD S/p CABG # Third degree heart block S/p PPM ?Continue her home medication aspirin, Plavix, atorvastatin # Hypertensive emergency # Hypertension Her blood pressure fluctuates between 90/62-160/100. Needs a tighter control over her blood pressure and this fluctuation might be due to her requirement of frequent dialysis. Continue her home medication as required for now and follow-up outpatient for more broader and stricter hypertension control. # Seizures # PRES # Diabetes ?Continue to manage as per primary team Discussed this case with Dr. Kendrick Morales MD PGY1
--- NOTE | 2025-06-29 23:59 | VVPN_ITS ---
Telemedicine visit statement This visit was conducted with the use of interactive audio and video telecommunications system that permits real time communication between the patient and the provider. Patient's verbal consent for virtual visit was obtained on 06/29/25 at 2359. Documentation for date of: 06/29/25 Subjective Subjective Interval history: Patient is in telemetry, no seizures reported after admission. This is significantly improved to baseline. Continue to have generalized weakness. At times she is slow in responding. Virtual exam Vital Signs Temp Pulse Resp BP Pulse Ox O2 Del Method O2 Flow Rate 97.4 F 89 14 98/55 L 96 Room Air 2 06/29/25 20:00 06/29/25 20:00 06/29/25 20:00 06/29/25 20:00 06/29/25 20:00 06/29/25 20:00 06/27/25 13:19 Objective Labs 06/29/25 08:43 06/29/25 08:43 Labs: Laboratory Results - last 24 hr 06/29/25 06/29/25 06/29/25 00:50 05:39 08:43 WBC 12.9 H RBC 3.41 L Hgb 9.9 L Hct 32.3 L MCV 95 MCH 29.0 MCHC 30.7 L RDW Std Deviation 55.4 H Plt Count 211 Neut % (Auto) 74 Lymph % (Auto) 13 [place] % (Auto) 8 Eos % (Auto) 1 Baso % (Auto) 1 Neut # (Auto) 9.6 H Lymph # (Auto) 1.7 Howard # (Auto) 1.1 H Eos # (Auto) 0.1 Baso # (Auto) 0.1 Immature Gran # (Auto) 0.40 H Absolute Nucleated RBC 0.00 Immature Gran % 3 H Nucleated RBC % 0 Sodium 135 L Potassium 3.8 Chloride 98 Carbon Dioxide 23.5 Anion Gap 14 BUN 45 H Creatinine 5.0 H* D Estim Creat Clear Calc 10.7 L eGFR 9 L* BUN/Creatinine Ratio 9 L Glucose 248 H D Calculated Osmolality 289 Calcium 9.5 Corrected Calcium 9.5 Total Bilirubin 0.3 AST 17 ALT < 7 L Alkaline Phosphatase 96 Total Protein 6.0 Albumin 4.2 Globulin 1.8 L Albumin/Globulin Ratio 2.3 H Ur Collection Type Catheter Urine Color Lt-[place] A Urine Clarity Turbid A Urine pH 6.5 Ur Specific [place] 1.015 Urine Protein 3+ A Urine Glucose (UA) Negative Urine Ketones Negative Urine Blood 2+ A Urine Nitrite Negative Urine Bilirubin Negative Urine Urobilinogen (Auto) Negative Ur Leukocyte Esterase Positive Urine RBC 1 Urine WBC 324 H Ur Squamous Epith Cells 1 Urine Bacteria None Hyaline Casts < 1 Ur Culture Indicated? Yes Stool Occult Blood Random Vancomycin 17.9 06/29/25 10:20 WBC RBC Hgb Hct MCV MCH MCHC RDW Std Deviation Plt Count Neut % (Auto) Lymph % (Auto) [place] % (Auto) Eos % (Auto) Baso % (Auto) Neut # (Auto) Lymph # (Auto) [place] # (Auto) Eos # (Auto) Baso # (Auto) Immature Gran # (Auto) Absolute Nucleated RBC Immature Gran % Nucleated RBC % Sodium Potassium Chloride Carbon Dioxide Anion Gap BUN Creatinine Estim Creat Clear Calc eGFR BUN/Creatinine Ratio Glucose Calculated Osmolality Calcium Corrected Calcium Total Bilirubin AST ALT Alkaline Phosphatase Total Protein Albumin Globulin Albumin/Globulin Ratio Ur Collection Type Urine Color Urine Clarity Urine pH Ur Specific [place] Urine Protein Urine Glucose (UA) Urine Ketones Urine Blood Urine Nitrite Urine Bilirubin Urine Urobilinogen (Auto) Ur Leukocyte Esterase Urine RBC Urine WBC Ur Squamous Epith Cells Urine Bacteria Hyaline Casts Ur Culture Indicated? Stool Occult Blood Negative Random Vancomycin ABG Interpretation ABG results: 06/25/25 12:30 ABG pH 7.33 L ABG pCO2 43 ABG pO2 143 H D ABG HCO3 23 ABG O2 Saturation 98 ABG Base Excess -3 Assessment & Plan Assessment 1. Altered mental status: secondary to hypertensive encephalopathy. Initial EEG findings show periodic generalized paroxysmal epileptiform discharges consistent with seizures. \ Repeat EEG showed no epileptiform discharges, however would like to keep her on Keppra, switch from IV to p.o. 750 twice a day and aggressive control of her blood pressure. MRI brain negative for posterior reversible encephalopathy syndrome. Ordered physical therapy
[2025-06-30] VITALS (31 sets, daily range): BP systolic 73–170; BP diastolic 43–86; PULSE 75–98; RESP 12–18; TEMP 35.9–36.6; O2SAT 94–98
[2025-06-30] MEDS: METOCLOPRAMIDE INJ 5 MG/ML VIAL 2 ML IVP ×5 (00:06→23:45)
[2025-06-30 05:30] LABS: Basophils # (Auto) 0.1 Thou/mm3 (0.0-0.2); Basophils % (Auto) 0 % (0-2.5); Eosinophils # (Auto) 0.2 Thou/mm3 (0.0-0.5); Eosinophils % (Auto) 2 % (0-10); Hematocrit 30.2 % (36.0-46.0); Hemoglobin 9.5 g/dL (12.0-16.0); Immature Granulocytes Auto 0.32 Thou/mm3 (0.00-0.00); Lymphocytes # (Auto) 2.3 Thou/mm3 (1.0-4.8); Lymphocytes % (Auto) 19 % (10-50); Mean Corpuscular HGB Conc 31.5 g/dl (31.0-37.0); Mean Corpuscular Hemoglobin 29.3 pg (25.0-35.0); Mean Corpuscular Volume 93 fL (80-100); Monocytes # (Auto) 1.2 Thou/mm3 (0.0-0.8); Monocytes % (Auto) 10 % (0-12); Neutrophils # (Auto) 8.1 Thou/mm3 (1.8-7.7); Neutrophils % (Auto) 67 % (37-80); Nucleated Red Blood Cell # 0.00 Thou/mm3 (0.00-0.00); Nucleated Red Blood Cell % 0 /100 WBC (0); Platelet Count 226 Thou/mm3 (140-440); RDW Standard Deviation 54.4 fL (36.4-46.3); Red Blood Count 3.24 Miln/mm3 (4.00-5.20); White Blood Count 12.2 Thou/mm3 (3.6-11.0)
[2025-06-30 06:05] LABS: Alanine Aminotransferase < 7 U/L (10-49); Albumin, Serum 4.2 gm/dL (3.4-4.8); Albumin/Globulin Ratio 2.5 (1.2-2.2); Alkaline Phosphatase 94 U/L (46-116); Anion Gap 14 (7-16); Aspartate Amino Transferase 16 U/L (0-34); BUN/Creatinine Ratio 8 Ratio (12-20); Bilirubin,Total 0.3 mg/dL (0.3-1.2); Blood Urea Nitrogen 49 mg/dL (9-23); Calcium 9.7 mg/dL (8.3-10.6); Calcium (Corrected) 9.7 mg/dL (8.5-10.1); Carbon Dioxide 22.4 mMol/L (20.0-31.0); Chloride 100 mMol/L (98-107); Creatinine (Component) 5.9 mg/dL (0.6-1.3); Estimated Creatinine Clearance 9.1 mL/min (>60); Globulin 1.7 gm/dL (2.3-3.5); Glucose 130 mg/dL (74-106); Magnesium 2.2 mg/dL (1.6-2.6); Osmolality,Calculated 286 (275-295); Phosphorous 5.4 mg/dL (2.4-5.1); Potassium 4.0 mMol/L (3.4-5.1); Sodium 136 mMol/L (136-145); Total Protein 5.9 gm/dL (5.7-8.2); Vancomycin,Random 15.2 mcg/mL; eGFR 7 See Note
[2025-06-30 06:52] LABS: INR 0.9 (0.9-1.3); Prothrombin Time 10.1 Seconds (9.0-12.2)
--- NOTE | 2025-06-30 07:10 | ESPR_ITS ---
<Statement entered by Conchita Zepeda MD - 07/01/25 17:46> Patient seen at bedside. Overnight team reported patient had urinary retention. Patient is currently undergoing dialysis and will get dialysis tunneled catheter replaced as well as CHELSY. Patient has no new complaints is more awake and alert. Urine cultures are pending will continue ceftriaxone. Patient was seen and examined by me personally. I have directly supervised and reviewed documentation by the team resident and agree with its findings. ------- Plan of care was discussed with the attending, Dr. Shi Zepeda, PGY-2 Documentation for date of: 06/30/25 Subjective Subjective Interval history: NAEO. Straight cath for 500 cc on bladder scan overnight. Patient evaluated at bedside during dialysis. She reports feeling more awake and alert today, as yesterday she was in a fog . Denies acute paresthesias, weakness. Exam Vital Signs Temp Pulse Resp BP Pulse Ox O2 Del Method O2 Flow Rate 97.8 F 78 15 116/64 95 Room Air 2 06/30/25 04:00 06/30/25 04:00 06/30/25 04:00 06/30/25 04:00 06/30/25 04:00 06/30/25 04:00 06/27/25 13:19 Narrative Exam General: No acute distress, well nourished Eye: PERRL, EOMI, normal conjunctiva, no scleral icterus HENT: Normocephalic, atraumatic, normal hearing, moist oral mucosa Neck: Supple, non-tender, no JVD, no lymphadenopathy Lungs: Clear to auscultation bilaterally, non-labored respirations, symmetric chest rise, no use of accessory muscles Heart: Normal S1 and S2, no S3 or S4 appreciated. Normal rate and regular rhythm, no murmurs, rubs gallops, or edema. Peripheral pulses intact bilaterally, capillary refill brisk distally Abdomen: Soft, non-tender, non-distended, normal bowel sounds. No guarding or rebound tenderness. Musculoskeletal: Normal range of motion and strength, no tenderness or swelling Skin: Skin is warm, dry, no rashes or lesions. Psychiatric: Cooperative, appropriate mood and affect Neurologic: Mental status: Orientation: Oriented to person, place, time, and situation Communication: Patient is cooperative and can follow simple instructions Language: Speech fluent, normal rate and volume, comprehension intact Cranial nerves: CN II: Visual shelton intact CN III: Pupils equal, round, and reactive to light CN III, IV, : No gaze deviation, no nystagmus Horizontal pursuit: intact Vertical pursuit: intact Ptosis: none CN V: Facial sensation to light touch intact bilaterally at the forehead, cheeks, and jaw line CN VII: Face symmetric, no facial droop appreciated CN VIII: Able to hear and respond to conversation at normal volume, intact to finger rub CN IX, X: Palate elevation symmetric, uvula midline CN XI: Head turn and shoulder shrug strong, symmetric bilaterally CN XII: Normal tongue protrusion without deviation, no fasciculations Motor: Normal bulk and tone No abnormal movements or fasciculations Muscle strength: Shoulder abduction: R 5/5 L 5/5 Elbow flexion: R 5/5 L 5/5 Elbow extension: R 5/5 L 5/5 Hip flexion: R 5/5 L 5/5 Hip extension: R 5/5 L 5/5 Knee flexion: R 5/5 L 5/5 Knee extension: R 5/5 L 5/5 Sensory: RUE: Light touch intact LUE: Light touch intact Chronically decreased sensation to light touch in b/l LE to just above knee and fingertips (2/2 peripheral neuropathy), symmetric Objective Labs 07/01/25 04:41 07/01/25 04:41 Labs: Laboratory Results - last 24 hr 06/29/25 06/29/25 06/30/25 08:43 10:20 05:07 WBC 12.9 H 12.2 H RBC 3.41 L 3.24 L Hgb 9.9 L 9.5 L Hct 32.3 L 30.2 L MCV 95 93 MCH 29.0 29.3 MCHC 30.7 L 31.5 RDW Std Deviation 55.4 H 54.4 H Plt Count 211 226 Neut % (Auto) 74 67 Lymph % (Auto) 13 19 [place] % (Auto) 8 10 Eos % (Auto) 1 2 Baso % (Auto) 1 0 Neut # (Auto) 9.6 H 8.1 H Lymph # (Auto) 1.7 2.3 [place] # (Auto) 1.1 H 1.2 H Eos # (Auto) 0.1 0.2 Baso # (Auto) 0.1 0.1 Immature Gran # (Auto) 0.40 H 0.32 H Absolute Nucleated RBC 0.00 0.00 Immature Gran % 3 H 3 H Nucleated RBC % 0 0 PT 10.1 INR 0.9 Sodium 135 L 136 Potassium 3.8 4.0 Chloride 98 100 Carbon Dioxide 23.5 22.4 Anion Gap 14 14 BUN 45 H 49 H Creatinine 5.0 H* D 5.9 H* D Estim Creat Clear Calc 10.7 L 9.1 L eGFR 9 L* 7 L* BUN/Creatinine Ratio 9 L 8 L Glucose 248 H D 130 H D Calculated Osmolality 289 286 Calcium 9.5 9.7 Corrected Calcium 9.5 9.7 Phosphorus 5.4 H Magnesium 2.2 Total Bilirubin 0.3 0.3 AST 17 16 ALT < 7 L < 7 L Alkaline Phosphatase 96 94 Total Protein 6.0 5.9 Albumin 4.2 4.2 Globulin 1.8 L 1.7 L Albumin/Globulin Ratio 2.3 H 2.5 H Stool Occult Blood Negative Random Vancomycin 15.2 ABG Interpretation ABG results: 06/25/25 12:30 ABG pH 7.33 L ABG pCO2 43 ABG pO2 143 H D ABG HCO3 23 ABG O2 Saturation 98 ABG Base Excess -3 Quality Measures Quality Measures VTE prophylaxis Assessment & Plan Assessment Current Active Medications: Generic Name Dose Route Start Last Admin Trade Name Wilfredo PRN Reason Stop Dose Admin Acetaminophen 650 mg 06/25/25 08:16 Acetaminophen 325 Mg Tablet PO 07/25/25 08:15 Q6H PRN PAIN OR FEVER > 101 Aspirin 81 mg 06/25/25 09:00 06/29/25 09:04 Aspirin Ec 81 Mg Tabec PO 07/25/25 08:59 81 mg On Hold: 06/29/25 16:58 QDAY ALEX Administration Atorvastatin Calcium 40 mg 06/26/25 21:00 06/29/25 21:13 Atorvastatin Calcium 20 Mg Tablet PO 07/26/25 20:59 40 mg HS ALEX Administration Clopidogrel Bisulfate 75 mg 06/25/25 09:00 06/29/25 09:04 Clopidogrel Bisulfate 75 Mg Tablet PO 07/25/25 08:59 75 mg On Hold: 06/29/25 16:57 QDAY ALEX Administration Duloxetine HCl 30 mg 06/26/25 09:00 06/29/25 21:13 Duloxetine Hcl 30 Mg Capsule PO 07/26/25 08:59 30 mg BID ALEX Administration Heparin Sodium (Porcine) 3,300 unit 06/25/25 11:42 06/26/25 12:03 Heparin Sod Inj 1000 Unit/Ml Vial 10 Ml INDWELLCAT 07/09/25 11:41 3,300 unit On Hold: 06/29/25 16:58 PRN PRN Administration DIALYSIS Albumin Human 25 gm in 100 mls @ 100 mls/hr 06/26/25 09:40 06/27/25 11:46 Albuminex 25% Ivpb IV Infused PRN PRN Infusion DIALYSIS Ceftriaxone Sodium/Dextrose 1 gm in 50 mls @ 100 mls/hr 06/29/25 11:30 06/29/25 11:41 Rocephin/D5w 1gm Iv Premix IV 07/06/25 11:29 100 mls/hr QDAY ALEX Administration Vancomycin/Sodium Chloride 750 mg in 150 mls @ 120 mls/hr 06/30/25 18:00 Vancomycin/Ns 750 Mg Ivpb IV 06/30/25 19:14 X1 ONE Insulin Human Lispro 0 unit 06/27/25 21:00 06/29/25 21:14 Insulin Lispro (Admelog) 1 Unit/0.01 Ml Unit SC 07/26/25 17:59 Not Given ACHS ALEX Protocol Labetalol HCl 10 mg 06/26/25 08:29 06/26/25 16:30 Labetalol Inj 5 Mg/Ml Vial 20 Ml IVP 07/25/25 08:16 10 mg Q4H PRN Administration SBP > 150 Levetiracetam 750 mg 06/30/25 09:00 Levetiracetam 250 Mg Tablet PO 07/30/25 08:59 BID ALEX Lorazepam 2 mg 06/25/25 12:20 Lorazepam 2 Mg/Ml Vial IVP 06/30/25 12:19 Q15MIN PRN Seizure Activity Metoclopramide HCl 5 mg 06/25/25 11:15 Metoclopramide Inj 5 Mg/Ml Vial 2 Ml IVP 07/25/25 13:59 Q8HR PRN nausea Protocol Metoclopramide HCl 5 mg 06/29/25 16:15 06/30/25 05:53 Metoclopramide Inj 5 Mg/Ml Vial 2 Ml IVP 07/29/25 16:14 5 mg Q6HR ALEX Administration Protocol Ondansetron HCl 4 mg 06/25/25 08:16 06/29/25 05:56 Ondansetron Inj 2 Mg/Ml Inj 2 Ml IV 07/25/25 08:15 4 mg Q6H PRN Administration NAUSEA OR VOMITING Protocol Pantoprazole Sodium 40 mg 06/25/25 09:00 06/29/25 09:05 Pantoprazole Inj 40 Mg Vial IVP 07/25/25 08:59 40 mg QDAY ALEX Administration Pharmacy Consult 1 each 06/25/25 12:21 Pharmacy Renal Dose Adjustment 1 Ea XX 07/25/25 12:20 PRN PRN CONSULT Pharmacy Consult 1 each 06/28/25 09:00 Vancomycin Pharmacy To Dose 1 Each Each IV 07/28/25 08:59 QDAY PRN CONSULT Ropinirole HCl 0.25 mg 06/26/25 21:00 06/29/25 21:13 Ropinirole Hcl 0.25 Mg Tablet PO 07/26/25 20:59 0.25 mg HS ALEX Administration Sennosides 2 tab 06/25/25 09:00 Senna Tablet PO 07/25/25 08:59 BID PRN CONSTIPATION Protocol Valsartan 40 mg 06/27/25 08:36 06/29/25 09:05 Valsartan 40 Mg Tablet PO 07/26/25 08:59 40 mg QDAY ALEX Administration Plan Patient is a 64-year-old female with past medical history of DM, ESRD, HTN, seizure disorder, CVA, CAD with open heart surgery, bradycardia (3rd degree heart block) with pacemaker, PRES who presented tp the ED 06/25 for altered mentation/somnolence/difficulty to arouse; patient was admitted for acute encephalopathy. #Acute encephalopathy - resolved #Hx PRES #Polypharmacy #Hypertensive emergency - resolved #History of HTN #Seizure disorder Family states that she has had difficulty to arouse for a few days, after she had taken Xanax and a pain pill . Of note family endorses use of marijuana for appetite stimulation, and pharmacy notes history of previous [facility] prescription this year. Initially AOx0. BP in ED orxy to 204/109, tx with labetalol and hydralazine IV PRN CT head negative for hemorrhage, mass effect or midline shift MRI Brain with Increased white matter signal prominent, Negative for acute hemorrhage, mass effect or midline shift. Negative for posterior reversible encephalopathy syndrome, per neuro EEG 06/25/2025: periodic generalized paroxysmal epileptiform discharges consistent with seizures. Repeat EEG: no epileptiform discharges 06/27/25-06/30: Patient A&Ox3, following commands, improved mentation Plan: - Valsartan 40 mg qd (hold for low SBP <100) - labatelol 10 mg IV (if systolic > 150) - Keppra 1000 IV BID --> Keppra 750 mg PO BID - Ativan 2 prn Q15min if seizure activity - Neuro consulted, appreciate recs - CTM BP. Aggressive BP control - Nephrology consulted, thank you for recs - continue with dialysis and IV hypertensives - Seizure precautions - Pending PT #Staph epidermidis, Staph hominis bacteremia 06/24 Bcx Staph epidermidis in 1/2 samples 06/26 Bcx Staph hominis in 1/2 samples 06/28 BCx NGTD at 48 hours Plan: - ID consulted, started on vancomycin (06/28- 07/11) - Plan to exchange tunneled dialysis catheter on 06/30 following a.m. dialysis session - CHELSY after removal of dialysis catheter, consulted cardio (Dr. Izaguirre, appreciate recs) #UTI #Hx recurrent UTI Denies dysuria, often does not feel sx of UTI. Nonbloody nonbilious emesis x2, had to straight cath due to UA 3+ protein, 2+ blood, +LE, 324 WBC. Urinary retention x 2 days requiring straight cath Plan: - Ceftriaxone 1 g IV daily (06/29 - ) - Pending urine cx - Blood cx q4h, straight cath PRN #ESRD Patient has ESRD; receives dialysis Monday. Patient follows with Dr Awad Planning for fistula placement with vascular surgery in [place] Plan: - Dialysis MWF - Albumin 25 g 2/3 bags given - Avoid nephrotoxic agents, renally dose meds - Patient will continue regular dialysis schedule Patient will have dialysis catheter removed on Monday morning following a.m. dialysis #T2DM c/b peripheral neuropathy A1c on 05/29/25 was 5.2. Blood glucose well-controlled. Refuses gabapentin Plan: - Insulin sliding scale ACHS #Bradycardia, 3rd degree heart block s/p pacemaker #Hx CAD #Hx CVA EKG on 06/25/25 shows no acute changes Plan: - Aspirin 81 qhs - Atorvastatin 40 qhs - Plavix 75 qhs #Depression Plan: - Duloxetine 30 mg PO BID (home med) Checklist Dispo: Tele, pending exchange of tunneled cath given bacteremia, on IV abx, pending CHELSY Lines: PIV, dialysis catheter Diet: NPO Bowel Reg: senna BID PRN VTE ppx: SCD GI ppx: pantoprazole 40 mg IV daily Pain mgmt: Tylenol PRN Code status: full Plan discussed with Dr. Daniel Zepeda and Dr. Shi Flaherty MD PGY1 Attending Provider Attestation/Addendum I, Lenore Osullivan DO, attest that I was physically present for the [place] portions of the service and evaluated the patient with the resident and I reviewed and discussed the case with the resident and agree with the resident's findings and plans of care as documented above Patient seen and eval this a.m. Patient is alert and oriented x 3. She has no acute complaints at this time. Patient grew staph hominis and staph epi on blood cultures. Case discussed with nephrology who recommends exchange of dialysis catheter as bcx have been negative x 24h. Patient can have her catheter removed and replaced at the same time. patient has a pacemaker in the left side of her chest. Patient has been on plavix, will need to continue holding until tomorrow per IR to have catheter exchanged. She is to continue with vancomycin otherwise. Will continue wtih abx at this time. Mental status is much improved. Will have PT work with pt.
--- NOTE | 2025-06-30 07:51 | PD.RESPRO ---
Documentation for date of: 06/30/25 Subjective Subjective Interval history: Ms. Carmona is a 64-year-old woman with a history of diabetes, CAD with CABG, pacemaker due to third-degree heart block, ESRD (Monday, follows with Dr Awad), seizure disorder confirmed on EEG on [facility] followed by Dr. Chan, press syndrome, who presented with encephalopathy likely secondary to polypharmacy and/or postictal state , was found to have GPC bacteremia with 1/ 2 cultures growing Staph epidermidis. Possible source is Tunneled chatheter . Currently on Vanc , pending repeat BC, Cardiology was consulted for CHELSY. 06/30/25. patient was seen and examined at bedside, No acute overnight events, vitals are stable, labs are consistent with WSRD, Delmi Carmona followuing the patient, Plan is to miguel HD today, and remove TC today, followed by 48 hours line holiday, continue Vanc , After (-) BC continue vanc for 14 day, as per cardiology stand point keep NPO, plan is to do CHELSY. Exam Vital Signs Temp Pulse Resp BP Pulse Ox O2 Del Method O2 Flow Rate 97.8 F 78 15 116/64 95 Room Air 2 06/30/25 04:00 06/30/25 04:00 06/30/25 04:00 06/30/25 04:00 06/30/25 04:00 06/30/25 04:00 06/27/25 13:19 Narrative Exam GENERAL: no acute distress, AAO x3, well nourished. HEENT: Head AT/ NC. Mucous membranes moist. PERRL. NECK: Supple, no lymphadenopathy, no carotid bruits. TLC noted. dressing clean and dry CARDIOVASCULAR: RRR. Normal S1/S2, No m/r/g. No pitting edema of bilateral LEs. RESPIRATORY: CTAB. No wheezing, rhonchi, crackles. GASTROINTESTINAL: Abdomen soft, non tender no palpable masses. Bowel sounds present in all 4 quadrants. MUSCULOSKELETAL:? No cyanosis or edema, no visible joint swelling. NEUROLOGICAL: CN II-XII grossly intact. No focal deficits. PSYCHIATRIC: Awake and alert, not agitated, normal mood and affect. INTEGUMENTARY: No obvious rashes, no jaundice, normal turgor. Objective Labs 06/30/25 05:07 06/30/25 05:07 Labs: Laboratory Results - last 24 hr 06/29/25 06/29/25 06/30/25 08:43 10:20 05:07 WBC 12.9 H 12.2 H RBC 3.41 L 3.24 L Hgb 9.9 L 9.5 L Hct 32.3 L 30.2 L MCV 95 93 MCH 29.0 29.3 MCHC 30.7 L 31.5 RDW Std Deviation 55.4 H 54.4 H Plt Count 211 226 Neut % (Auto) 74 67 Lymph % (Auto) 13 19 [place]offey % (Auto) 8 10 Eos % (Auto) 1 2 Baso % (Auto) 1 0 Neut # (Auto) 9.6 H 8.1 H Lymph # (Auto) 1.7 2.3 [place]y # (Auto) 1.1 H 1.2 H Eos # (Auto) 0.1 0.2 Baso # (Auto) 0.1 0.1 Immature Gran # (Auto) 0.40 H 0.32 H Absolute Nucleated RBC 0.00 0.00 Immature Gran % 3 H 3 H Nucleated RBC % 0 0 PT 10.1 INR 0.9 Sodium 135 L 136 Potassium 3.8 4.0 Chloride 98 100 Carbon Dioxide 23.5 22.4 Anion Gap 14 14 BUN 45 H 49 H Creatinine 5.0 H* D 5.9 H* D Estim Creat Clear Calc 10.7 L 9.1 L eGFR 9 L* 7 L* BUN/Creatinine Ratio 9 L 8 L Glucose 248 H D 130 H D Calculated Osmolality 289 286 Calcium 9.5 9.7 Corrected Calcium 9.5 9.7 Phosphorus 5.4 H Magnesium 2.2 Total Bilirubin 0.3 0.3 AST 17 16 ALT < 7 L < 7 L Alkaline Phosphatase 96 94 Total Protein 6.0 5.9 Albumin 4.2 4.2 Globulin 1.8 L 1.7 L Albumin/Globulin Ratio 2.3 H 2.5 H Stool Occult Blood Negative Random Vancomycin 15.2 ABG Interpretation ABG results: 06/25/25 12:30 ABG pH 7.33 L ABG pCO2 43 ABG pO2 143 H D ABG HCO3 23 ABG O2 Saturation 98 ABG Base Excess -3 Quality Measures Quality Measures VTE prophylaxis Assessment & Plan Assessment Current Active Medications: Generic Name Dose Route Start Last Admin Trade Name Freq PRN Reason Stop Dose Admin Acetaminophen 650 mg 06/25/25 08:16 Acetaminophen 325 Mg Tablet PO 07/25/25 08:15 Q6H PRN PAIN OR FEVER > 101 Aspirin 81 mg 06/25/25 09:00 06/29/25 09:04 Aspirin Ec 81 Mg Tabec PO 07/25/25 08:59 81 mg On Hold: 06/29/25 16:58 QDAY ALEX Administration Atorvastatin Calcium 40 mg 06/26/25 21:00 06/29/25 21:13 Atorvastatin Calcium 20 Mg Tablet PO 07/26/25 20:59 40 mg HS ALEX Administration Clopidogrel Bisulfate 75 mg 06/25/25 09:00 06/29/25 09:04 Clopidogrel Bisulfate 75 Mg Tablet PO 07/25/25 08:59 75 mg On Hold: 06/29/25 16:57 QDAY ALEX Administration Duloxetine HCl 30 mg 06/26/25 09:00 06/29/25 21:13 Duloxetine Hcl 30 Mg Capsule PO 07/26/25 08:59 30 mg BID ALEX Administration Heparin Sodium (Porcine) 3,300 unit 06/25/25 11:42 06/26/25 12:03 Heparin Sod Inj 1000 Unit/Ml Vial 10 Ml INDWELLCAT 07/09/25 11:41 3,300 unit On Hold: 06/29/25 16:58 PRN PRN Administration DIALYSIS Albumin Human 25 gm in 100 mls @ 100 mls/hr 06/26/25 09:40 06/27/25 11:46 Albuminex 25% Ivpb IV Infused PRN PRN Infusion DIALYSIS Ceftriaxone Sodium/Dextrose 1 gm in 50 mls @ 100 mls/hr 06/29/25 11:30 06/29/25 11:41 Rocephin/D5w 1gm Iv Premix IV 07/06/25 11:29 100 mls/hr QDAY ALEX Administration Vancomycin/Sodium Chloride 750 mg in 150 mls @ 120 mls/hr 06/30/25 18:00 Vancomycin/Ns 750 Mg Ivpb IV 06/30/25 19:14 X1 ONE Insulin Human Lispro 0 unit 06/27/25 21:00 06/29/25 21:14 Insulin Lispro (Admelog) 1 Unit/0.01 Ml Unit SC 07/26/25 17:59 Not Given ACHS ALEX Protocol Labetalol HCl 10 mg 06/26/25 08:29 06/26/25 16:30 Labetalol Inj 5 Mg/Ml Vial 20 Ml IVP 07/25/25 08:16 10 mg Q4H PRN Administration SBP > 150 Levetiracetam 750 mg 06/30/25 09:00 Levetiracetam 250 Mg Tablet PO 07/30/25 08:59 BID ALEX Lorazepam 2 mg 06/25/25 12:20 Lorazepam 2 Mg/Ml Vial IVP 06/30/25 12:19 Q15MIN PRN Seizure Activity Metoclopramide HCl 5 mg 06/25/25 11:15 Metoclopramide Inj 5 Mg/Ml Vial 2 Ml IVP 07/25/25 13:59 Q8HR PRN nausea Protocol Metoclopramide HCl 5 mg 06/29/25 16:15 06/30/25 05:53 Metoclopramide Inj 5 Mg/Ml Vial 2 Ml IVP 07/29/25 16:14 5 mg Q6HR ALEX Administration Protocol Ondansetron HCl 4 mg 06/25/25 08:16 06/29/25 05:56 Ondansetron Inj 2 Mg/Ml Inj 2 Ml IV 07/25/25 08:15 4 mg Q6H PRN Administration NAUSEA OR VOMITING Protocol Pantoprazole Sodium 40 mg 06/25/25 09:00 06/29/25 09:05 Pantoprazole Inj 40 Mg Vial IVP 07/25/25 08:59 40 mg QDAY ALEX Administration Pharmacy Consult 1 each 06/25/25 12:21 Pharmacy Renal Dose Adjustment 1 Ea XX 07/25/25 12:20 PRN PRN CONSULT Pharmacy Consult 1 each 06/28/25 09:00 Vancomycin Pharmacy To Dose 1 Each Each IV 07/28/25 08:59 QDAY PRN CONSULT Ropinirole HCl 0.25 mg 06/26/25 21:00 06/29/25 21:13 Ropinirole Hcl 0.25 Mg Tablet PO 07/26/25 20:59 0.25 mg HS ALEX Administration Sennosides 2 tab 06/25/25 09:00 Senna Tablet PO 07/25/25 08:59 BID PRN CONSTIPATION Protocol Valsartan 40 mg 06/27/25 08:36 06/29/25 09:05 Valsartan 40 Mg Tablet PO 07/26/25 08:59 40 mg QDAY ALEX Administration Plan Ms. Carmona is a 64-year-old woman with a history of diabetes, CAD with CABG, pacemaker due to third-degree heart block, ESRD (Monday, follows with Dr Awad), seizure disorder confirmed on EEG on followed by Dr. Chan, press syndrome, who presented with encephalopathy likely secondary to polypharmacy and/or postictal state , was found to have GPC bacteremia with 1/ 2 cultures growing Staph epidermidis. Possible source is Tunneled chatheter . Currently on Vanc , pending repeat BC, Cardiology was consulted for CHELSY. #Staph epidermidis bacteremia #concern for Endocarditis Blood cultures taken 06/24/25 positive for Staph epidermidis Repeat Bcx NGTD at 48 hours Cardiology was consulted to r/o vegetations ECHO on 06/21:Summary 1. Left ventricle size is normal and systolic function is normal. Visually estimated ejection fraction is 55-60%. There is grade I diastolic dysfunction.There is moderate concentric hypertrophy noted. 2. Right ventricle size is normal and systolic function is normal. Estimated RVSP is 21 mmHg. 3. There is mild aortic valve sclerosis with no stenosis and no regurgitation. 4. There is mild tricuspid valve regurgitation. 5. Normal IVC with estimated RA pressure 8 mmHg. -Plan to remove tunneled dialysis catheter today following a.m. dialysis session and allow for 48-hour line holiday prior to reinsertion -CHELSY after removal of dialysis catheter, -keep NPO Patient denies any kind of swallowing problems or any kind of esophageal interventions or previous surgeries. Patient denies any kind of gastric ulcers bleeding and any other hematemesis or hematochezia. Patient denies any issues with anesthesia previously. Patient explained all the risks, benefits and alternatives of CHELSY including the risk of perforation, bleeding, respiratory failure secondary to sedation, injury to teeth gums esophagus and stomach. Patient understands all risks and benefits and provided consent for the procedure. Patient was not n.p.o. overnight and did eat her breakfast. Will keep her n.p.o. this morning and plan to do the CHELSY later this afternoon. #Bradycardia, 3rd degree heart block s/p pacemaker #Hx CAD #Hypertensive emergency #HTN EKG on 06/25/25 shows no acute changes Plan: -monitor on telemetry -control RF such as HTN and hyperglycemia -monitore Electrolytes, replace PRN, -Aspirin 81 qhs -Atorvastatin 40 qhs -Plavix 75 qhs #Acute encephalopathy 2/2 #Polypharmacy vs metabolic in a setting of bacteremia vs seizure/postictal state #PRES #Seizure disorder #UTI #ESRD on HD #T2DM c/b peripheral neuropathy #Hx CVA #Depression to be managed by primary team Patient care was discussed with attending physician Dr. Ricardo Oseguera MD PGY-3 I have carefully reviewed this document. Due to imperfections in the voice software, there could be grammatical errors including phonetic/typographic errors. This in no way compromises the medical care the patient is receiving Attending Provider Attestation/Addendum I have personally seen and examined the patient separately on the above date of service and discussed the plan of care with the resident. I reviewed the resident Dr. Niya Zuñiga consultation progress note and agree with the resident findings and plan in the note above and have also edited the documentation to reflect my findings and plan. Zaheer Marks M.D. Interventional Cardiology
[2025-06-30] MEDS: ALBUMIN HUMAN-KJDA 25% IVPB 25 GM/100 ML BTL IV (09:04)
--- NOTE | 2025-06-30 09:10 | ESPR_ITS ---
Subjective Subjective Interval history: on rocephin per others. only pos cx is coag neg from admit bc,one of two Exam Vital Signs Temp Pulse Resp BP Pulse Ox O2 Del Method O2 Flow Rate 96.6 F L 80 18 73/43 L 98 Room Air 2 06/30/25 08:28 06/30/25 09:00 06/30/25 08:28 06/30/25 09:00 06/30/25 08:28 06/30/25 08:00 06/27/25 13:19 Narrative Exam no overt need to remove line. no meningismus. is opposed to an LP at this time. no abd sx. Objective - Internal Medicine Labs 06/30/25 05:07 06/30/25 05:07 Labs: Laboratory Results - last 24 hr 06/29/25 06/29/25 06/30/25 08:43 10:20 05:07 WBC 12.9 H 12.2 H RBC 3.41 L 3.24 L Hgb 9.9 L 9.5 L Hct 32.3 L 30.2 L MCV 95 93 MCH 29.0 29.3 MCHC 30.7 L 31.5 RDW Std Deviation 55.4 H 54.4 H Plt Count 211 226 Neut % (Auto) 74 67 Lymph % (Auto) 13 19 [place] % (Auto) 8 10 Eos % (Auto) 1 2 Baso % (Auto) 1 0 Neut # (Auto) 9.6 H 8.1 H Lymph # (Auto) 1.7 2.3 [place] # (Auto) 1.1 H 1.2 H Eos # (Auto) 0.1 0.2 Baso # (Auto) 0.1 0.1 Immature Gran # (Auto) 0.40 H 0.32 H Absolute Nucleated RBC 0.00 0.00 Immature Gran % 3 H 3 H Nucleated RBC % 0 0 PT 10.1 INR 0.9 Sodium 135 L 136 Potassium 3.8 4.0 Chloride 98 100 Carbon Dioxide 23.5 22.4 Anion Gap 14 14 BUN 45 H 49 H Creatinine 5.0 H* D 5.9 H* D Estim Creat Clear Calc 10.7 L 9.1 L eGFR 9 L* 7 L* BUN/Creatinine Ratio 9 L 8 L Glucose 248 H D 130 H D Calculated Osmolality 289 286 Calcium 9.5 9.7 Corrected Calcium 9.5 9.7 Phosphorus 5.4 H Magnesium 2.2 Total Bilirubin 0.3 0.3 AST 17 16 ALT < 7 L < 7 L Alkaline Phosphatase 96 94 Total Protein 6.0 5.9 Albumin 4.2 4.2 Globulin 1.8 L 1.7 L Albumin/Globulin Ratio 2.3 H 2.5 H Stool Occult Blood Negative Random Vancomycin 15.2 ABG Interpretation ABG results: 06/25/25 12:30 ABG pH 7.33 L ABG pCO2 43 ABG pO2 143 H D ABG HCO3 23 ABG O2 Saturation 98 ABG Base Excess -3 Assessment & Plan A&P Narrative single pos bc with coag neg staph. has a cvl for hd other problems as noted marlenyo ok for 14d from first neg bc. 06/28 thru 07/11 and ok to leave line in place bc with different strains of coag neg staph so ok to NOT remove line unless already done. rocephin per primary team. they started it friday 06/29 despite neg cx, at 1 gm/day she had been convinced of the dx of uti though looks like started due to low grade temp change of uncertain significance. ua abn cx late and may have been pre treated . . no overt indication for lp now. if you want to send her out on po cefuroxime adjusted for her ckd for remainder of 7d, that is ok with me. Time Spent With Patient Time: Total time spent is greater than 50% in coordination of care (as documented) at patient's floor/unit and/or counseling patient:
--- NOTE | 2025-06-30 09:40 | PD.ADDPROG ---
Addendum Progress Note Addendum Date of report being addended: 06/30/25 Narrative: don't forget to also give the vanco with hd thru 07/11
[2025-06-30] MEDS: ACETAMINOPHEN 325 MG TABLET 650 MG PO (11:10)
[2025-06-30] MEDS: HEPARIN SOD INJ 1000 UNIT/ML VIAL 10 ML 3300 UNIT INDWELLCAT (12:04)
[2025-06-30] MEDS: DULoxetine HCL 30 MG CAPSULE PO ×2 (12:19→21:02)
[2025-06-30] MEDS: cefTRIAXone/D5w 1gm IV premix 1 GM/50 ML BAG IV (12:20)
--- NOTE | 2025-06-30 14:00 | ECHO_ITS ---
Patient Info Name: Edita Carmona Age: 64 years : 1960 Gender: Female Ht: 162 cm Wt: 66 kg BSA: 1.74 m2 BP: 159 / 82 mmHg HR: 79 bpm Exam Date: 06/30/2025 3:21 PM Admit Date: 06/25/2025 Site: [facility] Room Number: Bre[place] Patient Status: I Exam Type: CA echo transesophageal Line Painting Machine Operator: Kateryna Hartmann Ordering Physician: Zaheer Marks Study Info Indications endocarditis - Primary Location: [id number] Left Ventricle Left ventricular chamber dimension is normal. Left ventricular systolic function is normal with visually estimated ejection fraction of 60-65%. There is normal geometry noted in the left ventricle. There is indeterminate diastolic function in the left ventricle. Right Ventricle Right ventricular chamber dimension is normal. Right ventricular systolic function is normal. Left Atrium Left atrial chamber dimension is normal. Right Atrium Right atrial chamber dimension is normal. Aortic Valve The aortic valve is trileaflet. Pulmonic Valve The pulmonic valve is normal. Mitral Valve The mitral valve has normal leaflets. There is mild mitral valve regurgitation. Tricuspid Valve The tricuspid valve leaflets are normal. There is trace tricuspid valve regurgitation. Pericardium/Pleural There is no pericardial effusion. The pericardium appears normal. Summary 1. Indications: Bacteremia - C/f endocarditis. 2. No clear evidence of any valvular vegetation or any vegetations on the pacemaker leads. No endocarditis. 3. Bubble study negative for PFO and ASD. No LA or JESSICA thrombus. 4. Normal LV size and function with an EF of around 60 to 65%. 5. Normal RV size and function. 6. Trace MR, TR and PI. No pericardial effusion. Report Signatures Finalized by Zaheer Marks on 07/01/2025 05:54 PM
--- NOTE | 2025-06-30 14:44 | PC.SS ---
Rounding: Pending tunnel cath removal and reinsertion. DC plan home 1-2 days
--- NOTE | 2025-06-30 15:14 | ESPR_ITS ---
RE: KAREN BARNES : 1960 DATE OF SERVICE: 06/30/2025 HISTORY OF PRESENT ILLNESS: Briefly, she is a 64-year-old woman with type 2 diabetes with diabetic retinopathy, neuropathy and nephropathy, hypertension, CAD, status post CABG, third-degree AV block, status post pacemaker placement on 10/17/2024, and ESRD, on dialysis since 2021, dialyzing Mondays, Wednesdays and Fridays, who presented to emergency room on 06/25/2025 with acute encephalopathy. The patient had an EEG after she had a seizure during dialysis on 06/26/2025. Her EEG confirmed that she has active seizures. Her Keppra was increased to 1 g b.i.d. Blood pressures were also controlled to 120s/80s. The patient is currently on dialysis, is somehow with hypotension. She is, however, dialyzing some fluid removal. CURRENT MEDICATIONS: 1. Acetaminophen. 2. Aspirin. 3. Atorvastatin 40 mg at bedtime. 4. Rocephin 1 g daily. 5. Plavix 75 mg daily. 6. Lispro. 7. Labetalol. 8. Metoclopramide. 9. Keppra. 10. Ropinirole. 11. Vancomycin 1 g x1. PHYSICAL EXAMINATION: General: She is awake, alert, oriented, on dialysis. Vital Signs: Blood pressure is 122/72 and heart rate of 81. HEENT: Anicteric sclerae. Normocephalic. Neck: Supple. No JVD. Chest and Lungs: Symmetrical expansion. Clear breath sounds. Cardiac: Without murmur. Abdomen: Soft and nontender. Extremities: No edema. LABORATORY DATA: Hemoglobin 9.5, WBC 12,200, and platelet count 226,000. Sodium 136, potassium 4.0, chloride 100, CO2 is 22, BUN 49, creatinine 5.9, glucose 130, calcium 9.7, phosphorus 5.4, and albumin 2.5. ASSESSMENT: 1. End-stage renal disease, currently on dialysis. 2. Staphylococcus hominis bacteremia. 3. Acute encephalopathy secondary to combination of Keppra, Xanax, pain pills, now improved. 4. Uncontrolled hypertension, now improved. 5. History of type 2 diabetes. 6. History of seizure disorder, on increased dose of Keppra at 1 g q.12. PLAN: Given her recent leukocytosis and blood culture growing Staph hominis, currently on vancomycin, patient can have replacement of her dialysis catheter on the same day that it was removed. Her blood cultures have been negative so far since it became positive for Staph hominis. This was conveyed to the hospitalist as well as to the radiologist. We will continue current medication and IV vancomycin for at least 3 weeks' duration. DT: 14:05:33 TT: 15:13:00 Ref: [id number] - TID: [id number] [facility]
--- NOTE | 2025-06-30 16:01 | PC.PT ---
Attempt to initiate PT evaluation at 1000, patient is in dialysis. Re-attempt at 1430, patient is in Cathlab. Will try again tomorrow.
[2025-06-30] MEDS: fentaNYL CIT INJ 50 mCg/ML AMP 2ML IVP (16:24)
[2025-06-30] MEDS: MIDAZOLAM INJ 1 MG/ML VIAL 2 ML 3.5 MG IVP (16:24)
[2025-06-30] MEDS: BENZOCAINE 20% (Hurricaine) SPRAY 1 DOSE TOP (16:24)
[2025-06-30] MEDS: VANCOMYCIN/NS 750 MG IVPB 750 MG/150 ML BAG 120 MG IV (17:22)
--- NOTE | 2025-06-30 20:27 | PD.NEUROPROG ---
Documentation for date of: 06/30/25 Subjective Subjective Interval history: Patient is in telemetry today at the bedside. No seizures or myoclonic jerks after admission reported. Her mental status is improving significantly and is close to baseline. Exam - Neurology Vital Signs Temp Pulse Resp BP Pulse Ox O2 Del Method O2 Flow Rate 97.2 F 83 16 116/74 97 Room Air 3 06/30/25 20:00 06/30/25 20:00 06/30/25 20:00 06/30/25 20:00 06/30/25 20:00 06/30/25 20:00 06/30/25 16:38 Narrative Exam GENERAL APPEARANCE: Well hydrated, well-nourished in no acute distress. HEENT: Normocephalic, atraumatic, extraocular movements intact. Pupils: Equal reacting to light and accommodation NECK: Supple, no JVD or bruits. CARDIOVASULAR: Heart: S1, S2 heard, regular without S3-S4 or murmur no rubs or gallops. LUNGS/CHEST: Clear to auscultation bilaterally. No rails, rhonchi, or wheezing. Normal inspection. ABDOMEN: Soft, nontender, with normal bowel sounds. No pulsatile masses. No rebound, rigidity, or guarding. Normal inspection and palpation. EXTREMITIES: Normal inspection and palpation. No edema, clubbing or cyanosis. SKIN: Warm and dry without rashes. Normal inspection. MUSCULOSKELETAL: No cervical, thoracic, lumbar or midline bony tenderness. Normal inspection. NEURO: Alert, awake and oriented x3. Cranial nerves: II through XII grossly intact. Speech and language: Normal with no dysarthria or dysphasia. Motor system: Tone and bulk: Normal: Strength: 5 out of 5 in all 4 extremities; No pronator drift noted. Deep tendon reflexes: 2+ bilaterally symmetrical. Plantar reflex: Downgoing bilaterally. Sensory system: Intact to all modalities of sensation bilaterally. Coordination: Intact to [id number] and lpip-zbvs-zjiq test bilaterally. No ataxia, no dysmetria, or dysdiadochokinesia noted. No intention tremors noted. Gait: Not tested. No signs of meningeal irritation noted. PSYCHIATRIC: Normal mood and affect. Objective Labs 07/01/25 04:41 07/01/25 04:41 Labs: Laboratory Results - last 24 hr 06/30/25 05:07 WBC 12.2 H RBC 3.24 L Hgb 9.5 L Hct 30.2 L MCV 93 MCH 29.3 MCHC 31.5 RDW Std Deviation 54.4 H Plt Count 226 Neut % (Auto) 67 Lymph % (Auto) 19 [place] % (Auto) 10 Eos % (Auto) 2 Baso % (Auto) 0 Neut # (Auto) 8.1 H Lymph # (Auto) 2.3 [place] # (Auto) 1.2 H Eos # (Auto) 0.2 Baso # (Auto) 0.1 Immature Gran # (Auto) 0.32 H Absolute Nucleated RBC 0.00 Immature Gran % 3 H Nucleated RBC % 0 PT 10.1 INR 0.9 Sodium 136 Potassium 4.0 Chloride 100 Carbon Dioxide 22.4 Anion Gap 14 BUN 49 H Creatinine 5.9 H* D Estim Creat Clear Calc 9.1 L eGFR 7 L* BUN/Creatinine Ratio 8 L Glucose 130 H D Calculated Osmolality 286 Calcium 9.7 Corrected Calcium 9.7 Phosphorus 5.4 H Magnesium 2.2 Total Bilirubin 0.3 AST 16 ALT < 7 L Alkaline Phosphatase 94 Total Protein 5.9 Albumin 4.2 Globulin 1.7 L Albumin/Globulin Ratio 2.5 H Random Vancomycin 15.2 ABG Interpretation ABG results: 06/25/25 12:30 ABG pH 7.33 L ABG pCO2 43 ABG pO2 143 H D ABG HCO3 23 ABG O2 Saturation 98 ABG Base Excess -3 Assessment & Plan Assessment and plan (1) Altered mental status: Status: Resolved Assessment and plan: Secondary to hypertensive encephalopathy causing seizures with abnormal inital EEG. Continue with Rajat (2) Hypertensive emergency: Status: Resolved Assessment and plan: Continue with aggressive blood pressure control to prevent recurrence of posterior reversible encephalopathy syndrome causing seizures. (3) Weakness: Status: Acute Assessment and plan: As she is improving, continue with the physical therapy as an outpatient with home health upon discharge (4) Type 2 diabetes mellitus: Status: Chronic Assessment and plan: Continue with blood sugar management to keep the A1c under 7 (5) End stage renal disease on dialysis due to type 2 diabetes mellitus: Status: Chronic Assessment and plan: Continue with maintenance dialysis 3 days a week
[2025-06-30] MEDS: ATORVASTATIN CALCIUM 20 MG TABLET 40 MG PO (21:02)
[2025-06-30] MEDS: INSULIN LISPRO (AdmeLOG) 1 UNIT/0.01 ML UNIT SC (21:04)
[2025-07-01] VITALS (15 sets, daily range): BP systolic 107–158; BP diastolic 63–89; PULSE 77–101; RESP 13–21; TEMP 35.9–36.6; O2SAT 94–99; BMI 13.0
[2025-07-01] MEDS: METOCLOPRAMIDE INJ 5 MG/ML VIAL 2 ML IVP ×3 (05:30→18:52)
[2025-07-01 06:26] LABS: Basophils # (Auto) 0.1 Thou/mm3 (0.0-0.2); Basophils % (Auto) 1 % (0-2.5); Eosinophils # (Auto) 0.3 Thou/mm3 (0.0-0.5); Eosinophils % (Auto) 2 % (0-10); Hematocrit 31.5 % (36.0-46.0); Hemoglobin 9.8 g/dL (12.0-16.0); Immature Granulocytes Auto 0.26 Thou/mm3 (0.00-0.00); Lymphocytes # (Auto) 1.6 Thou/mm3 (1.0-4.8); Lymphocytes % (Auto) 16 % (10-50); Mean Corpuscular HGB Conc 31.1 g/dl (31.0-37.0); Mean Corpuscular Hemoglobin 28.9 pg (25.0-35.0); Mean Corpuscular Volume 93 fL (80-100); Monocytes # (Auto) 1.1 Thou/mm3 (0.0-0.8); Monocytes % (Auto) 11 % (0-12); Neutrophils # (Auto) 6.9 Thou/mm3 (1.8-7.7); Neutrophils % (Auto) 68 % (37-80); Nucleated Red Blood Cell # 0.00 Thou/mm3 (0.00-0.00); Nucleated Red Blood Cell % 0 /100 WBC (0); Platelet Count 242 Thou/mm3 (140-440); RDW Standard Deviation 53.4 fL (36.4-46.3); Red Blood Count 3.39 Miln/mm3 (4.00-5.20); White Blood Count 10.2 Thou/mm3 (3.6-11.0)
[2025-07-01 06:45] LABS: Alanine Aminotransferase 10 U/L (10-49); Albumin, Serum 4.6 gm/dL (3.4-4.8); Albumin/Globulin Ratio 2.9 (1.2-2.2); Alkaline Phosphatase 90 U/L (46-116); Anion Gap 14 (7-16); Aspartate Amino Transferase 18 U/L (0-34); BUN/Creatinine Ratio 8 Ratio (12-20); Bilirubin,Total 0.3 mg/dL (0.3-1.2); Blood Urea Nitrogen 30 mg/dL (9-23); Calcium 9.9 mg/dL (8.3-10.6); Calcium (Corrected) 9.9 mg/dL (8.5-10.1); Carbon Dioxide 25.1 mMol/L (20.0-31.0); Chloride 101 mMol/L (98-107); Creatinine (Component) 3.7 mg/dL (0.6-1.3); Estimated Creatinine Clearance 14.5 mL/min (>60); Globulin 1.6 gm/dL (2.3-3.5); Glucose 92 mg/dL (74-106); Magnesium 2.1 mg/dL (1.6-2.6); Osmolality,Calculated 285 (275-295); Phosphorous 4.8 mg/dL (2.4-5.1); Potassium 3.8 mMol/L (3.4-5.1); Sodium 140 mMol/L (136-145); Total Protein 6.2 gm/dL (5.7-8.2); Vancomycin,Random 22.8 mcg/mL; eGFR 13 See Note
[2025-07-01] MEDS: ACETAMINOPHEN 325 MG TABLET 650 MG PO ×3 (07:21→21:42)
--- NOTE | 2025-07-01 07:22 | ESPR_ITS ---
<Statement entered by Conchita Zepeda MD - 07/01/25 17:49> Patient is seen at bedside. Patient underwent CHELSY and findings were within normal limits. Urine culture grew E. coli sensitive to ceftriaxone therefore we will continue IV ceftriaxone. Patient was unable to get dialysis catheter replaced yesterday due to anticoagulation. Will plan to undergo dialysis catheter replaced today. Will also order PT and encouraged the patient to get out of bed and mobilize. No other complaints. Patient was seen and examined by me personally. I have directly supervised and reviewed documentation by the team resident and agree with its findings. ------- Plan of care was discussed with the attending, Dr. Shi Zepeda, PGY-2 Documentation for date of: 07/01/25 Subjective Subjective Interval history: NAEO. Bladder scan showed 350 cc, straight cath. Patient reports that she has the urge but finds it difficult to urinate while lying down in bed. Will try bedside commode today. Plan for tunneled dialysis catheter exchange today. Patient's daughter at bedside, reports that her mother is able to converse much better today and is more alert and oriented than previous hospital days. Plan for PT today. Patient has not been needed PRN BP medication over past 24 hours. BP 100-140s/70-80s. Managed with Valsartan 40 mg PO daily. Home meds (provided by daughter at bedside): Alprazolam 0.25 mg daily Keppra 500 mg BID Labetalol 100 mg PRN for sBP > 180 Cetirizine 10 mg daily PRN Atorvastatin 40 mg daily Sarahi-Sixto [id number] daily Sevelamer 1600 mg TID with meals Reglan 10 mg PRN Aspirin 81 mg daily Vitamin C 500 mg BID Valsartan 40 mg daily Pantoprazole 40 mg BID Plavix 75 mg daily Cymbalta 30 mg BID Docusate 100 mg PRN Tradjenta (Linagliptan) 5 mg daily Meclizine 25 mg daily Midodrine 10 mg PRN for sBP <100 Ropinirole 0.25 QHS Exam Vital Signs Temp Pulse Resp BP Pulse Ox O2 Del Method O2 Flow Rate 97.2 F 85 13 137/76 H 94 L Room Air 3 07/01/25 04:00 07/01/25 04:00 07/01/25 04:00 07/01/25 04:00 07/01/25 04:00 07/01/25 04:00 06/30/25 16:38 Narrative Exam General: No acute distress, well nourished Eye: PERRL, EOMI, normal conjunctiva, no scleral icterus HENT: Normocephalic, atraumatic, normal hearing, moist oral mucosa Neck: Supple, non-tender, no JVD, no lymphadenopathy Lungs: Clear to auscultation bilaterally, non-labored respirations, symmetric chest rise, no use of accessory muscles Heart: Normal S1 and S2, no S3 or S4 appreciated. Normal rate and regular rhythm, no murmurs, rubs gallops, or edema. Peripheral pulses intact bilaterally, capillary refill brisk distally Abdomen: Soft, non-tender, non-distended, normal bowel sounds. No guarding or rebound tenderness. Musculoskeletal: Normal range of motion and strength, no tenderness or swelling Skin: Skin is warm, dry, no rashes or lesions. Psychiatric: Cooperative, appropriate mood and affect Neurologic: Mental status: Orientation: Oriented to person, place, time, and situation Communication: Patient is cooperative and can follow simple instructions Language: Speech fluent, normal rate and volume, comprehension intact Cranial nerves: CN II: Visual [place] intact CN III: Pupils equal, round, and reactive to light CN III, IV, : No gaze deviation, no nystagmus Horizontal pursuit: intact Vertical pursuit: intact Ptosis: none CN V: Facial sensation to light touch intact bilaterally at the forehead, cheeks, and jaw line CN VII: Face symmetric, no facial droop appreciated CN VIII: Able to hear and respond to conversation at normal volume, intact to finger rub CN IX, X: Palate elevation symmetric, uvula midline CN XI: Head turn and shoulder shrug strong, symmetric bilaterally CN XII: Normal tongue protrusion without deviation, no fasciculations Motor: Normal bulk and tone No abnormal movements or fasciculations Muscle strength: Shoulder abduction: R 5/5 L 5/5 Elbow flexion: R 5/5 L 5/5 Elbow extension: R 5/5 L 5/5 Hip flexion: R 5/5 L 5/5 Hip extension: R 5/5 L 5/5 Knee flexion: R 5/5 L 5/5 Knee extension: R 5/5 L 5/5 Sensory: RUE: Light touch intact LUE: Light touch intact Chronically decreased sensation to light touch in b/l LE to just above knee and fingertips (2/2 peripheral neuropathy), symmetric Objective Labs 07/02/25 06:01 07/02/25 06:01 Labs: Laboratory Results - last 24 hr 07/01/25 04:41 WBC 10.2 RBC 3.39 L Hgb 9.8 L Hct 31.5 L MCV 93 MCH 28.9 MCHC 31.1 RDW Std Deviation 53.4 H Plt Count 242 Neut % (Auto) 68 Lymph % (Auto) 16 [place] % (Auto) 11 Eos % (Auto) 2 Baso % (Auto) 1 Neut # (Auto) 6.9 Lymph # (Auto) 1.6 [place] # (Auto) 1.1 H Eos # (Auto) 0.3 Baso # (Auto) 0.1 Immature Gran # (Auto) 0.26 H Absolute Nucleated RBC 0.00 Immature Gran % 3 H Nucleated RBC % 0 Sodium 140 Potassium 3.8 Chloride 101 Carbon Dioxide 25.1 Anion Gap 14 BUN 30 H Creatinine 3.7 H D Estim Creat Clear Calc 14.5 L eGFR 13 L* BUN/Creatinine Ratio 8 L Glucose 92 Calculated Osmolality 285 Calcium 9.9 Corrected Calcium 9.9 Phosphorus 4.8 Magnesium 2.1 Total Bilirubin 0.3 AST 18 ALT 10 Alkaline Phosphatase 90 Total Protein 6.2 Albumin 4.6 Globulin 1.6 L Albumin/Globulin Ratio 2.9 H Random Vancomycin 22.8 ABG Interpretation ABG results: 06/25/25 12:30 ABG pH 7.33 L ABG pCO2 43 ABG pO2 143 H D ABG HCO3 23 ABG O2 Saturation 98 ABG Base Excess -3 Quality Measures Quality Measures VTE prophylaxis Assessment & Plan Assessment Current Active Medications: Generic Name Dose Route Start Last Admin Trade Name Freq PRN Reason Stop Dose Admin Acetaminophen 650 mg 06/25/25 08:16 06/30/25 11:10 Acetaminophen 325 Mg Tablet PO 07/25/25 08:15 650 mg Q6H PRN Administration PAIN OR FEVER > 101 Aspirin 81 mg 06/25/25 09:00 06/29/25 09:04 Aspirin Ec 81 Mg Tabec PO 07/25/25 08:59 81 mg On Hold: 06/29/25 16:58 QDAY ALEX Administration Atorvastatin Calcium 40 mg 06/26/25 21:00 06/30/25 21:02 Atorvastatin Calcium 20 Mg Tablet PO 07/26/25 20:59 40 mg HS ALEX Administration Clopidogrel Bisulfate 75 mg 06/25/25 09:00 06/29/25 09:04 Clopidogrel Bisulfate 75 Mg Tablet PO 07/25/25 08:59 75 mg On Hold: 06/29/25 16:57 QDAY ALEX Administration Duloxetine HCl 30 mg 06/26/25 09:00 06/30/25 21:02 Duloxetine Hcl 30 Mg Capsule PO 07/26/25 08:59 30 mg BID ALEX Administration Heparin Sodium (Porcine) 3,300 unit 06/25/25 11:42 06/30/25 12:04 Heparin Sod Inj 1000 Unit/Ml Vial 10 Ml INDWELLCAT 07/09/25 11:41 3,300 unit On Hold: 06/29/25 16:58 PRN PRN Administration DIALYSIS Ceftriaxone Sodium/Dextrose 1 gm in 50 mls @ 100 mls/hr 06/29/25 11:30 06/30/25 12:20 Rocephin/D5w 1gm Iv Premix IV 07/06/25 11:29 100 mls/hr QDAY ALEX Administration Insulin Human Lispro 0 unit 06/27/25 21:00 06/30/25 21:04 Insulin Lispro (Admelog) 1 Unit/0.01 Ml Unit SC 07/26/25 17:59 2 unit ACHS ALEX Administration Protocol Labetalol HCl 10 mg 06/26/25 08:29 06/26/25 16:30 Labetalol Inj 5 Mg/Ml Vial 20 Ml IVP 07/25/25 08:16 10 mg Q4H PRN Administration SBP > 150 Levetiracetam 750 mg 06/30/25 09:00 06/30/25 21:02 Levetiracetam 250 Mg Tablet PO 07/30/25 08:59 750 mg BID ALEX Administration Metoclopramide HCl 5 mg 06/25/25 11:15 Metoclopramide Inj 5 Mg/Ml Vial 2 Ml IVP 07/25/25 13:59 Q8HR PRN nausea Protocol Metoclopramide HCl 5 mg 06/29/25 16:15 07/01/25 05:30 Metoclopramide Inj 5 Mg/Ml Vial 2 Ml IVP 07/29/25 16:14 5 mg Q6HR ALEX Administration Protocol Ondansetron HCl 4 mg 06/25/25 08:16 06/29/25 05:56 Ondansetron Inj 2 Mg/Ml Inj 2 Ml IV 07/25/25 08:15 4 mg Q6H PRN Administration NAUSEA OR VOMITING Protocol Pantoprazole Sodium 40 mg 07/01/25 09:00 Pantoprazole 40 Mg Tablet PO 07/31/25 08:59 QDAY ALEX Protocol Pharmacy Consult 1 each 06/25/25 12:21 Pharmacy Renal Dose Adjustment 1 Ea XX 07/25/25 12:20 PRN PRN CONSULT Pharmacy Consult 1 each 06/28/25 09:00 Vancomycin Pharmacy To Dose 1 Each Each IV 07/28/25 08:59 QDAY PRN CONSULT Ropinirole HCl 0.25 mg 06/26/25 21:00 06/30/25 21:02 Ropinirole Hcl 0.25 Mg Tablet PO 07/26/25 20:59 0.25 mg HS ALEX Administration Sennosides 2 tab 06/25/25 09:00 Senna Tablet PO 07/25/25 08:59 BID PRN CONSTIPATION Protocol Valsartan 40 mg 06/27/25 08:36 06/30/25 09:46 Valsartan 40 Mg Tablet PO 07/26/25 08:59 Not Given QDAY ALEX Plan Patient is a 64-year-old female with past medical history of DM, ESRD, HTN, seizure disorder, CVA, CAD with open heart surgery, bradycardia (3rd degree heart block) with pacemaker, PRES who presented tp the ED 06/25 for altered mentation/somnolence/difficulty to arouse; patient was admitted for acute encephalopathy. #Acute encephalopathy - resolved #Hx PRES #Polypharmacy #Hypertensive emergency - resolved #History of HTN #Seizure disorder Initial presentation: AMS, AOx0, difficult to arouse to voice i/s/o Xanax, [place], marijuana use BP in ED roxy to 204/109, tx with labetalol and hydralazine IV PRN CT head negative for hemorrhage, mass effect or midline shift MRI Brain with Increased white matter signal prominent, Negative for acute hemorrhage, mass effect or midline shift. Negative for posterior reversible encephalopathy syndrome, per neuro EEG 06/25/2025: periodic generalized paroxysmal epileptiform discharges consistent with seizures. Repeat EEG: no epileptiform discharges Patient's mentation has improved, now AOx4, able to converse with tight associations and linear thought processes Plan: - Valsartan 40 mg qd (hold for low SBP <100) - labatelol 10 mg IV (if systolic > 150) - Keppra 750 mg PO BID - Ativan 2 prn Q15min if seizure activity - Neuro consulted, appreciate recs - CTM BP. Aggressive BP control - Nephrology consulted, thank you for recs - continue with dialysis and IV hypertensives - Seizure precautions - Pending PT #Staph epidermidis, Staph hominis bacteremia 06/24 Bcx Staph epidermidis in 1/2 samples 06/26 Bcx Staph hominis in 1/2 samples 06/28 BCx NGTD at 48 hours Plan: - ID consulted, vancomycin IV (06/28- 07/11) - Plan to exchange tunneled dialysis catheter on 07/01 - Pending CHELSY results #UTI #Hx recurrent UTI #Urinary retention Denies dysuria, often does not feel sx of UTI. Nonbloody nonbilious emesis x2, had to straight cath due to UA 3+ protein, 2+ blood, +LE, 324 WBC. Urinary retention requiring straight cath. Patient has urgent but finds it difficult to urinate while lying in bed. Will try using bedside commode today. During straight catheterization 06/30, nurse noticed white pus-like liquid at end of cath and collected. Ucx grew Ecoli, sensitive to Rocephin Plan: - Ceftriaxone 1 g IV daily (06/29 - ) x7 days - Blood cx q4h, straight cath PRN. Bedside commode trial today #ESRD Patient has ESRD; receives dialysis Monday. Patient follows with Dr Awad Planning for fistula placement with vascular surgery in [place] Plan: - Dialysis MWF - Albumin 25 g 2/3 bags given - Avoid nephrotoxic agents, renally dose meds #T2DM c/b peripheral neuropathy A1c on 05/29/25 was 5.2. Blood glucose well-controlled. Refuses gabapentin Plan: - Insulin sliding scale #Bradycardia, 3rd degree heart block s/p pacemaker #Hx CAD #Hx CVA EKG on 06/25/25 shows no acute changes Plan: - Aspirin 81 qhs - held for dialysis cath exchange - Atorvastatin 40 qhs - Plavix 75 qhs - held for dialysis cath exchange #Depression Plan: - Duloxetine 30 mg PO BID (home med) #Restless leg syndrome Plan: - Ropinirole 0.25 mg PO QHS Checklist Dispo: Tele, pending exchange of tunneled cath given bacteremia, on IV abx Lines: PIV, dialysis catheter Diet: NPO Bowel Reg: senna BID PRN VTE ppx: SCD GI ppx: pantoprazole 40 mg IV daily Pain mgmt: Tylenol PRN Code status: full Plan discussed with Dr. Daniel Zepeda and Dr. Shi Flaherty MD PGY1 Attending Provider Attestation/Addendum I, Lenore Osullivan DO, attest that I was physically present for the [place] portions of the service and evaluated the patient with the resident and I reviewed and discussed the case with the resident and agree with the resident's findings and plans of care as documented above Patient seen and evaluated this AM. She had undergone exchange of HD catheter today. Mental status is back at baseline. Patient states that she was able to ambulate about 30 feet with PT. Patient has been retaining urine, but states she has always had trouble with urination unless she was seated for over a minute. WIll get bedside commode. Anticipate DC within next 24h if patient condition remains stable. CHELSY was negative for any vegetations.
[2025-07-01] MEDS: LIDOCAINE 5% 1 PATCH TOP (08:29)
[2025-07-01] MEDS: PANTOPRAZOLE 40 MG TABLET PO (08:29)
[2025-07-01] MEDS: VALSARTAN 40 MG TABLET PO (08:29)
[2025-07-01] MEDS: DULoxetine HCL 30 MG CAPSULE PO ×2 (08:31→20:26)
--- NOTE | 2025-07-01 09:35 | XR_ITS ---
EXAM: Fluoroscopic right IJ tunneled dialysis catheter exchange. INDICATION: Infection. DATE: 07/01/2025, 10:21 a.m. Fluoroscopy time: 2.8 minutes Dose: 27.81 mGy PROCEDURE: After discussion of risks and benefits informed consent was obtained. The patient was brought to the angiography suite and placed supine on the exam table. The area around the existing right IJ tunneled dialysis catheter skin exit site was cleaned and draped in normal sterile surgical fashion. 10 cc of 1% lidocaine was used for local anesthesia. Conscious sedation was begun with direct continuous nursing supervision. 0.035 wires were advanced through each of the catheter lumens into the IVC. The catheter cuff was freed with blunt dissection. Catheter was removed over the wires with gentle traction. A new 19 cm 15 Greek dual-lumen dialysis catheter was advanced over the wires. Wires were removed. Distal catheter tip was appropriately positioned within the right atrium. Both ports flushed and aspirated easily and were filled with the appropriate volume of 1,000:1heparinized saline. The catheter was sutured in place with a 2-0 silk suture and covered with a sterile dressing. There were no immediate complications. IMPRESSION: Successful right IJ 19 cm cuff to tip dialysis catheter exchange as above. Catheter is ready for use.
--- NOTE | 2025-07-01 10:05 | PC.NURSE ---
[address] Awad regarding dialysis catheter order, wants removal of current tunneled dialysis catheter to right chest and insertion of new tunneled hemodialysis catheter, ok to place new catheter in same location
[2025-07-01] MEDS: MIDAZOLAM INJ 1 MG/ML VIAL 2 ML IVP (11:18)
[2025-07-01] MEDS: fentaNYL CIT INJ 50 mCg/ML AMP 2ML 100 MCG IVP (11:18)
[2025-07-01] MEDS: HEPARIN SOD LOCK SYR 100 UNIT/ML 500 UNIT STFIELD (11:23)
[2025-07-01] MEDS: LIDOCAINE INJ PF 1% 30 ML VIAL 20 ML INFL (11:23)
[2025-07-01] MEDS: HEPARIN SOD INJ 1000 UNIT/ML VIAL 3300 UNIT INDWELLCAT (11:39)
[2025-07-01] MEDS: cefTRIAXone/D5w 1gm IV premix 1 GM/50 ML BAG IV (12:58)
--- NOTE | 2025-07-01 13:18 | ESPR_ITS ---
Documentation for date of: 07/01/25 Subjective Subjective Interval history: Ms. Carmona is a 64-year-old woman with a history of diabetes, CAD with CABG, pacemaker due to third-degree heart block, ESRD (Monday, follows with Dr Awad), seizure disorder confirmed on EEG on [facility] followed by Dr. Chan, press syndrome, who presented with encephalopathy likely secondary to polypharmacy and/or postictal state , was found to have GPC bacteremia with 1/ 2 cultures growing Staph epidermidis. Possible source is Tunneled chatheter . Currently on Vanc , pending repeat BC, Cardiology was consulted for CHELSY. 06/30/25. patient was seen and examined at bedside, No acute overnight events, vitals are stable, labs are consistent with WSRD, Delmi Carmona followuing the patient, Plan is to miguel HD today, and remove TC today, followed by 48 hours line holiday, continue Vanc , After (-) BC continue vanc for 14 day, as per cardiology stand point keep NPO, plan is to do CHELSY. 07/01/25: Patient was seen and examined at bedside. No acute overnight events. Catheter was exchanged yesterday, patient continued to stay on vancomycin, repeat blood culture has been negative, 06/30/2025 CHELSY was done for evaluation endocarditis: no valvular vegatations. thrombi . no evidence of endocarditis> From cardiology standpoint patient has been stable, tolerated procedure well. Exam Vital Signs Temp Pulse Resp BP Pulse Ox O2 Del Method O2 Flow Rate 97.4 F 79 20 134/75 H 97 Nasal Cannula 3 07/01/25 08:00 07/01/25 11:40 07/01/25 11:40 07/01/25 11:40 07/01/25 11:40 07/01/25 11:40 07/01/25 11:40 Narrative Exam GENERAL: no acute distress, AAO x3, well nourished. HEENT: Head AT/ NC. Mucous membranes moist. PERRL. NECK: Supple, no lymphadenopathy, no carotid bruits. TLC noted. dressing clean and dry CARDIOVASCULAR: RRR. Normal S1/S2, No m/r/g. No pitting edema of bilateral LEs. RESPIRATORY: CTAB. No wheezing, rhonchi, crackles. GASTROINTESTINAL: Abdomen soft, non tender no palpable masses. Bowel sounds present in all 4 quadrants. MUSCULOSKELETAL:? No cyanosis or edema, no visible joint swelling. NEUROLOGICAL: CN II-XII grossly intact. No focal deficits. PSYCHIATRIC: Awake and alert, not agitated, normal mood and affect. INTEGUMENTARY: No obvious rashes, no jaundice, normal turgor. Objective Labs 07/01/25 04:41 07/01/25 04:41 Labs: Laboratory Results - last 24 hr 07/01/25 04:41 WBC 10.2 RBC 3.39 L Hgb 9.8 L Hct 31.5 L MCV 93 MCH 28.9 MCHC 31.1 RDW Std Deviation 53.4 H Plt Count 242 Neut % (Auto) 68 Lymph % (Auto) 16 [place] % (Auto) 11 Eos % (Auto) 2 Baso % (Auto) 1 Neut # (Auto) 6.9 Lymph # (Auto) 1.6 [place] # (Auto) 1.1 H Eos # (Auto) 0.3 Baso # (Auto) 0.1 Immature Gran # (Auto) 0.26 H Absolute Nucleated RBC 0.00 Immature Gran % 3 H Nucleated RBC % 0 Sodium 140 Potassium 3.8 Chloride 101 Carbon Dioxide 25.1 Anion Gap 14 BUN 30 H Creatinine 3.7 H D Estim Creat Clear Calc 14.5 L eGFR 13 L* BUN/Creatinine Ratio 8 L Glucose 92 Calculated Osmolality 285 Calcium 9.9 Corrected Calcium 9.9 Phosphorus 4.8 Magnesium 2.1 Total Bilirubin 0.3 AST 18 ALT 10 Alkaline Phosphatase 90 Total Protein 6.2 Albumin 4.6 Globulin 1.6 L Albumin/Globulin Ratio 2.9 H Random Vancomycin 22.8 ABG Interpretation ABG results: 06/25/25 12:30 ABG pH 7.33 L ABG pCO2 43 ABG pO2 143 H D ABG HCO3 23 ABG O2 Saturation 98 ABG Base Excess -3 Quality Measures Quality Measures VTE prophylaxis Assessment & Plan Assessment Current Active Medications: Generic Name Dose Route Start Last Admin Trade Name Freq PRN Reason Stop Dose Admin Acetaminophen 650 mg 06/25/25 08:16 07/01/25 07:21 Acetaminophen 325 Mg Tablet PO 07/25/25 08:15 650 mg Q6H PRN Administration PAIN OR FEVER > 101 Aspirin 81 mg 06/25/25 09:00 06/29/25 09:04 Aspirin Ec 81 Mg Tabec PO 07/25/25 08:59 81 mg On Hold: 06/29/25 16:58 QDAY ALEX Administration Atorvastatin Calcium 40 mg 06/26/25 21:00 06/30/25 21:02 Atorvastatin Calcium 20 Mg Tablet PO 07/26/25 20:59 40 mg HS ALEX Administration Clopidogrel Bisulfate 75 mg 06/25/25 09:00 06/29/25 09:04 Clopidogrel Bisulfate 75 Mg Tablet PO 07/25/25 08:59 75 mg On Hold: 06/29/25 16:57 QDAY ALEX Administration Duloxetine HCl 30 mg 06/26/25 09:00 07/01/25 08:31 Duloxetine Hcl 30 Mg Capsule PO 07/26/25 08:59 30 mg BID ALEX Administration Heparin Sodium (Porcine) 3,300 unit 06/25/25 11:42 06/30/25 12:04 Heparin Sod Inj 1000 Unit/Ml Vial 10 Ml INDWELLCAT 07/09/25 11:41 3,300 unit On Hold: 06/29/25 16:58 PRN PRN Administration DIALYSIS Ceftriaxone Sodium/Dextrose 1 gm in 50 mls @ 100 mls/hr 06/29/25 11:30 07/01/25 12:58 Rocephin/D5w 1gm Iv Premix IV 07/06/25 11:29 100 mls/hr QDAY ALEX Administration Insulin Human Lispro 0 unit 06/27/25 21:00 07/01/25 07:57 Insulin Lispro (Admelog) 1 Unit/0.01 Ml Unit SC 07/26/25 17:59 Not Given ACHS ALEX Protocol Labetalol HCl 10 mg 06/26/25 08:29 06/26/25 16:30 Labetalol Inj 5 Mg/Ml Vial 20 Ml IVP 07/25/25 08:16 10 mg Q4H PRN Administration SBP > 150 Levetiracetam 750 mg 06/30/25 09:00 07/01/25 08:29 Levetiracetam 250 Mg Tablet PO 07/30/25 08:59 750 mg BID ALEX Administration Metoclopramide HCl 5 mg 06/29/25 16:15 07/01/25 12:11 Metoclopramide Inj 5 Mg/Ml Vial 2 Ml IVP 07/29/25 16:14 5 mg Q6HR ALEX Administration Protocol Ondansetron HCl 4 mg 06/25/25 08:16 06/29/25 05:56 Ondansetron Inj 2 Mg/Ml Inj 2 Ml IV 07/25/25 08:15 4 mg Q6H PRN Administration NAUSEA OR VOMITING Protocol Pantoprazole Sodium 40 mg 07/01/25 09:00 07/01/25 08:29 Pantoprazole 40 Mg Tablet PO 07/31/25 08:59 40 mg QDAY ALEX Administration Protocol Pharmacy Consult 1 each 06/25/25 12:21 Pharmacy Renal Dose Adjustment 1 Ea XX 07/25/25 12:20 PRN PRN CONSULT Pharmacy Consult 1 each 06/28/25 09:00 Vancomycin Pharmacy To Dose 1 Each Each IV 07/28/25 08:59 QDAY PRN CONSULT Ropinirole HCl 0.25 mg 06/26/25 21:00 06/30/25 21:02 Ropinirole Hcl 0.25 Mg Tablet PO 07/26/25 20:59 0.25 mg HS ALEX Administration Sennosides 2 tab 06/25/25 09:00 Senna Tablet PO 07/25/25 08:59 BID PRN CONSTIPATION Protocol Valsartan 40 mg 06/27/25 08:36 07/01/25 08:29 Valsartan 40 Mg Tablet PO 07/26/25 08:59 40 mg QDAY ALEX Administration Plan Ms. Carmona is a 64-year-old woman with a history of diabetes, CAD with CABG, pacemaker due to third-degree heart block, ESRD (Monday, follows with Dr Awad), seizure disorder confirmed on EEG on [facility] followed by Dr. Chan, press syndrome, who presented with encephalopathy likely secondary to polypharmacy and/or postictal state , was found to have GPC bacteremia with 1/ 2 cultures growing Staph epidermidis. Possible source is Tunneled chatheter . Currently on Vanc , pending repeat BC, Cardiology was consulted for CHELSY. #Staph epidermidis bacteremia # endocarditis ruled out Blood cultures taken 06/24/25 positive for Staph epidermidis Repeat Bcx NGTD at 48 hours TLC was removed due to concern of possible source. ECHO on 06/21:Summary 1. Left ventricle size is normal and systolic function is normal. Visually estimated ejection fraction is 55-60%. There is grade I diastolic dysfunction.There is moderate concentric hypertrophy noted. 2. Right ventricle size is normal and systolic function is normal. Estimated RVSP is 21 mmHg. 3. There is mild aortic valve sclerosis with no stenosis and no regurgitation. 4. There is mild tricuspid valve regurgitation. 5. Normal IVC with estimated RA pressure 8 mmHg. Cardiology was consultef for CHELSY. Patient denies any kind of swallowing problems or any kind of esophageal interventions or previous surgeries. Patient denies any kind of gastric ulcers bleeding and any other hematemesis or hematochezia. Patient denies any issues with anesthesia previously. Patient explained all the risks, benefits and alternatives of CHELSY including the risk of perforation, bleeding, respiratory failure secondary to sedation, injury to teeth gums esophagus and stomach. Patient understands all risks and benefits and provided consent for the procedure. Patient was not n.p.o. overnight and did eat her breakfast. Will keep her n.p.o. this morning and plan to do the CHELSY later this afternoon. 06/30/2025 CHELSY was done for evaluation endocarditis: no valvular vegatations. thrombi . no evidence of endocarditis> #Bradycardia, 3rd degree heart block s/p pacemaker #Hx CAD #Hypertensive emergency #HTN EKG on 06/25/25 shows no acute changes Plan: -monitor on telemetry -control RF such as HTN and hyperglycemia -monitore Electrolytes, replace PRN, -Aspirin 81 qhs -Atorvastatin 40 qhs -Plavix 75 qhs #Acute encephalopathy 2/2 #Polypharmacy vs metabolic in a setting of bacteremia vs seizure/postictal state #PRES #Seizure disorder #UTI #ESRD on HD #T2DM c/b peripheral neuropathy #Hx CVA #Depression to be managed by primary team Patient care was discussed with attending physician Dr. Ricardo Oseguera MD PGY-3 I have carefully reviewed this document. Due to imperfections in the voice software, there could be grammatical errors including phonetic/typographic errors. This in no way compromises the medical care the patient is receiving Attending Provider Attestation/Addendum I have personally seen and examined the patient separately on the above date of service and discussed the plan of care with the resident. I reviewed the resident Dr. Niya Tello consultation progress note and agree with the resident findings and plan in the note above and have also edited the documentation to reflect my findings and plan. Zaheer Marks M.D. Interventional Cardiology
--- NOTE | 2025-07-01 14:43 | PC.SS ---
rounding note: Dialysis cath was not able to be replaced yesterday and will be today. PT recommends HH services upon discharge. Poss d/c Monday
[2025-07-01] MEDS: ATORVASTATIN CALCIUM 20 MG TABLET 40 MG PO (20:26)
--- NOTE | 2025-07-01 22:16 | ESPR_ITS ---
RE: KAREN BARNES : 1960 DATE OF SERVICE: 07/01/2025 HISTORY OF PRESENT ILLNESS: She is a 64-year-old woman with type 2 diabetes with diabetic retinopathy, neuropathy, nephropathy, hypertension, CAD status post CABG, third degree AV block with status post pacemaker placement on 10/17/2024 and ESRD on dialysis since 2021 dialyzing Monday, Monday, Fridays, who presented to emergency room on 06/25/2025 with acute encephalopathy. She had an EEG after she had a seizure during dialysis on 06/26/2025. Her EEG confirmed that she has active seizures. Her Keppra was increased to 1 g b.i.d. Blood pressures were also controlled to 120s/80s. The patient is waiting for dialysis catheter removal and replacement. The patient has blood cultures, which grew Staphylococcus hominis. The patient was also started on IV vancomycin for this. CURRENT MEDICATIONS: 1. Acetaminophen. 2. Aspirin. 3. Atorvastatin. 4. Vancomycin. 5. Plavix. 6. Lispro. 7. Labetalol. 8. Metoclopramide. 9. Keppra. 10. Ropinirole. PHYSICAL EXAMINATION: General: She is awake, alert, oriented. by the bedside. Vital Signs: Blood pressure of 138/80, heart rate of 94. HEENT: Anicteric sclerae, normocephalic. Neck: Supple, no JVD. Chest and Lungs: Symmetric expansion, clear breath sounds. Cardiac: Without murmur. Abdomen: Soft and nontender. Extremities: No edema. LABORATORY DATA: Hemoglobin 9.8, WBC 10,200, platelet count 242,000. Sodium 140, potassium 3.8, chloride 101, CO2 25.1. BUN 30, creatinine 3.7, calcium 9.9, phosphorus 4.8. ASSESSMENT: 1. End-stage renal disease. 2. Staphylococcus hominis bacteremia with succeeding blood cultures being negative. 3. Acute encephalopathy secondary to the combination of Keppra, Xanax, pain pills, seizure now improved. 4. Uncontrolled hypertension, now improved. 5. History of type 2 diabetes. 6. History of seizure disorder on increased dose of Keppra 1 g q. 12. PLAN: The patient is going to have dialysis catheter remove and replace on the same site. The patient's blood cultures have been negative so far since it has become positive for Staphylococcus hominis. We will continue her IV vancomycin for at least 3 weeks duration. DT: 21:54:04 TT: 22:15:00 Ref: [id number] - TID: [id number]
--- NOTE | 2025-07-01 23:49 | PD.NEUROPROG ---
Documentation for date of: 07/01/25 Subjective Subjective Interval history: Patient is in telemetry today at the bedside. No seizures or myoclonic jerks after admission reported. Her mental status is improving significantly and is back to baseline. She was able to walk 30 steps with the physical therapist today Exam - Neurology Vital Signs Temp Pulse Resp BP Pulse Ox O2 Del Method O2 Flow Rate 97.1 F 94 15 138/80 H 96 Room Air 3 07/01/25 20:00 07/01/25 20:00 07/01/25 20:00 07/01/25 20:00 07/01/25 20:00 07/01/25 20:00 07/01/25 11:40 Narrative Exam GENERAL APPEARANCE: Well hydrated, well-nourished in no acute distress. HEENT: Normocephalic, atraumatic, extraocular movements intact. Pupils: Equal reacting to light and accommodation NECK: Supple, no JVD or bruits. CARDIOVASULAR: Heart: S1, S2 heard, regular without S3-S4 or murmur no rubs or gallops. LUNGS/CHEST: Clear to auscultation bilaterally. No rails, rhonchi, or wheezing. Normal inspection. ABDOMEN: Soft, nontender, with normal bowel sounds. No pulsatile masses. No rebound, rigidity, or guarding. Normal inspection and palpation. EXTREMITIES: Normal inspection and palpation. No edema, clubbing or cyanosis. SKIN: Warm and dry without rashes. Normal inspection. MUSCULOSKELETAL: No cervical, thoracic, lumbar or midline bony tenderness. Normal inspection. NEURO: Alert, awake and oriented x3. Cranial nerves: II through XII grossly intact. Speech and language: Normal with no dysarthria or dysphasia. Motor system: Tone and bulk: Normal: Strength: 5 out of 5 in all 4 extremities; No pronator drift noted. Deep tendon reflexes: 2+ bilaterally symmetrical. Plantar reflex: Downgoing bilaterally. Sensory system: Intact to all modalities of sensation bilaterally. Coordination: Intact to [id number]-befg-syeenm and carh-vbet-[id number] test bilaterally. No ataxia, no dysmetria, or dysdiadochokinesia noted. No intention tremors noted. Gait: Not tested. No signs of meningeal irritation noted. PSYCHIATRIC: Normal mood and affect. Objective Labs 07/01/25 04:41 07/01/25 04:41 Labs: Laboratory Results - last 24 hr 07/01/25 04:41 WBC 10.2 RBC 3.39 L Hgb 9.8 L Hct 31.5 L MCV 93 MCH 28.9 MCHC 31.1 RDW Std Deviation 53.4 H Plt Count 242 Neut % (Auto) 68 Lymph % (Auto) 16 [place] % (Auto) 11 Eos % (Auto) 2 Baso % (Auto) 1 Neut # (Auto) 6.9 Lymph # (Auto) 1.6 [place] # (Auto) 1.1 H Eos # (Auto) 0.3 Baso # (Auto) 0.1 Immature Gran # (Auto) 0.26 H Absolute Nucleated RBC 0.00 Immature Gran % 3 H Nucleated RBC % 0 Sodium 140 Potassium 3.8 Chloride 101 Carbon Dioxide 25.1 Anion Gap 14 BUN 30 H Creatinine 3.7 H D Estim Creat Clear Calc 14.5 L eGFR 13 L* BUN/Creatinine Ratio 8 L Glucose 92 Calculated Osmolality 285 Calcium 9.9 Corrected Calcium 9.9 Phosphorus 4.8 Magnesium 2.1 Total Bilirubin 0.3 AST 18 ALT 10 Alkaline Phosphatase 90 Total Protein 6.2 Albumin 4.6 Globulin 1.6 L Albumin/Globulin Ratio 2.9 H Random Vancomycin 22.8 ABG Interpretation ABG results: 06/25/25 12:30 ABG pH 7.33 L ABG pCO2 43 ABG pO2 143 H D ABG HCO3 23 ABG O2 Saturation 98 ABG Base Excess -3 Assessment & Plan Assessment and plan (1) Altered mental status: Status: Resolved Assessment and plan: Secondary to hypertensive encephalopathy causing seizures with abnormal inital EEG. Continue with Rajat (2) Hypertensive emergency: Status: Resolved Assessment and plan: Continue with aggressive blood pressure control to prevent recurrence of posterior reversible encephalopathy syndrome causing seizures. (3) Weakness: Status: Acute Assessment and plan: As she is improving, continue with the physical therapy as an outpatient with home health upon discharge (4) Type 2 diabetes mellitus: Status: Chronic Assessment and plan: Continue with blood sugar management to keep the A1c under 7 (5) End stage renal disease on dialysis due to type 2 diabetes mellitus: Status: Chronic Assessment and plan: Continue with maintenance dialysis 3 days a week
[2025-07-02] VITALS (24 sets, daily range): BP systolic 101–148; BP diastolic 53–84; PULSE 76–92; RESP 12–18; TEMP 35.9–36.4; O2SAT 95–99; BMI 25.8; BMI 13.0
[2025-07-02] MEDS: METOCLOPRAMIDE INJ 5 MG/ML VIAL 2 ML IVP ×3 (00:14→12:53)
[2025-07-02 06:25] LABS: Basophils # (Auto) 0.1 Thou/mm3 (0.0-0.2); Basophils % (Auto) 1 % (0-2.5); Eosinophils # (Auto) 0.2 Thou/mm3 (0.0-0.5); Eosinophils % (Auto) 2 % (0-10); Hematocrit 28.5 % (36.0-46.0); Hemoglobin 9.2 g/dL (12.0-16.0); Immature Granulocytes Auto 0.17 Thou/mm3 (0.00-0.00); Lymphocytes # (Auto) 1.8 Thou/mm3 (1.0-4.8); Lymphocytes % (Auto) 18 % (10-50); Mean Corpuscular HGB Conc 32.3 g/dl (31.0-37.0); Mean Corpuscular Hemoglobin 29.5 pg (25.0-35.0); Mean Corpuscular Volume 91 fL (80-100); Monocytes # (Auto) 1.1 Thou/mm3 (0.0-0.8); Monocytes % (Auto) 11 % (0-12); Neutrophils # (Auto) 6.4 Thou/mm3 (1.8-7.7); Neutrophils % (Auto) 66 % (37-80); Nucleated Red Blood Cell # 0.00 Thou/mm3 (0.00-0.00); Nucleated Red Blood Cell % 0 /100 WBC (0); Platelet Count 198 Thou/mm3 (140-440); RDW Standard Deviation 52.0 fL (36.4-46.3); Red Blood Count 3.12 Miln/mm3 (4.00-5.20); White Blood Count 9.7 Thou/mm3 (3.6-11.0)
[2025-07-02 07:05] LABS: Alanine Aminotransferase 9 U/L (10-49); Albumin, Serum 4.3 gm/dL (3.4-4.8); Albumin/Globulin Ratio 2.9 (1.2-2.2); Alkaline Phosphatase 86 U/L (46-116); Anion Gap 15 (7-16); Aspartate Amino Transferase 15 U/L (0-34); BUN/Creatinine Ratio 7 Ratio (12-20); Bilirubin,Total 0.2 mg/dL (0.3-1.2); Blood Urea Nitrogen 31 mg/dL (9-23); Calcium 9.6 mg/dL (8.3-10.6); Calcium (Corrected) 9.6 mg/dL (8.5-10.1); Carbon Dioxide 21.3 mMol/L (20.0-31.0); Chloride 103 mMol/L (98-107); Creatinine (Component) 4.3 mg/dL (0.6-1.3); Estimated Creatinine Clearance 12.7 mL/min (>60); Globulin 1.5 gm/dL (2.3-3.5); Glucose 148 mg/dL (74-106); Magnesium 2.1 mg/dL (1.6-2.6); Osmolality,Calculated 287 (275-295); Phosphorous 4.9 mg/dL (2.4-5.1); Potassium 3.9 mMol/L (3.4-5.1); Sodium 139 mMol/L (136-145); Total Protein 5.8 gm/dL (5.7-8.2); Vancomycin,Random 18.7 mcg/mL; eGFR 11 See Note
[2025-07-02] MEDS: ACETAMINOPHEN 325 MG TABLET 650 MG PO ×2 (07:24→14:43)
--- NOTE | 2025-07-02 07:46 | ESPR_ITS ---
Documentation for date of: 07/02/25 Subjective Subjective Interval history: Ms. Carmona is a 64-year-old woman with a history of diabetes, CAD with CABG, pacemaker due to third-degree heart block, ESRD (Monday, follows with Dr Awad), seizure disorder confirmed on EEG on [facility] followed by Dr. Chan, press syndrome, who presented with encephalopathy likely secondary to polypharmacy and/or postictal state , was found to have GPC bacteremia with 1/ 2 cultures growing Staph epidermidis. Possible source is Tunneled chatheter . Currently on Vanc , pending repeat BC, Cardiology was consulted for CHELSY. 06/30/25. patient was seen and examined at bedside, No acute overnight events, vitals are stable, labs are consistent with ESRD, Delmi Carmona followuing the patient, Plan is to miguel HD today, and remove TC today, followed by 48 hours line holiday, continue Vanc , After (-) BC continue vanc for 14 day, as per cardiology stand point keep NPO, plan is to do CHELSY. 07/01/25: Patient was seen and examined at bedside. No acute overnight events. Catheter was exchanged yesterday, patient continued to stay on vancomycin, repeat blood culture has been negative, 06/30/2025 CHELSY was done for evaluation endocarditis: no valvular vegatations. thrombi . no evidence of endocarditis> From cardiology standpoint patient has been stable, tolerated procedure well. 07/02/25 Patient was seen and examined. No acute overnight events. Labs and vitals has been stable. Cath was exchangesd yesterday, BC has been negative, continue abx as per ID and follow regular HD sessions. Exam Vital Signs Temp Pulse Resp BP Pulse Ox O2 Del Method O2 Flow Rate 97.1 F 79 13 142/84 H 96 Room Air 3 07/02/25 04:00 07/02/25 04:00 07/02/25 04:00 07/02/25 04:00 07/02/25 04:00 07/02/25 04:00 07/01/25 11:40 Narrative Exam GENERAL: no acute distress, AAO x3, well nourished. HEENT: Head AT/ NC. Mucous membranes moist. PERRL. NECK: Supple, no lymphadenopathy, no carotid bruits. TLC noted. dressing clean and dry CARDIOVASCULAR: RRR. Normal S1/S2, No m/r/g. No pitting edema of bilateral LEs. RESPIRATORY: CTAB. No wheezing, rhonchi, crackles. GASTROINTESTINAL: Abdomen soft, non tender no palpable masses. Bowel sounds present in all 4 quadrants. MUSCULOSKELETAL:? No cyanosis or edema, no visible joint swelling. NEUROLOGICAL: CN II-XII grossly intact. No focal deficits. PSYCHIATRIC: Awake and alert, not agitated, normal mood and affect. INTEGUMENTARY: No obvious rashes, no jaundice, normal turgor. Objective Labs 07/02/25 06:01 07/02/25 06:01 Labs: Laboratory Results - last 24 hr 07/02/25 06:01 WBC 9.7 RBC 3.12 L Hgb 9.2 L Hct 28.5 L MCV 91 MCH 29.5 MCHC 32.3 RDW Std Deviation 52.0 H Plt Count 198 D Neut % (Auto) 66 Lymph % (Auto) 18 [place] % (Auto) 11 Eos % (Auto) 2 Baso % (Auto) 1 Neut # (Auto) 6.4 Lymph # (Auto) 1.8 [place] # (Auto) 1.1 H Eos # (Auto) 0.2 Baso # (Auto) 0.1 Immature Gran # (Auto) 0.17 H Absolute Nucleated RBC 0.00 Immature Gran % 2 H Nucleated RBC % 0 Sodium 139 Potassium 3.9 Chloride 103 Carbon Dioxide 21.3 Anion Gap 15 BUN 31 H Creatinine 4.3 H* D Estim Creat Clear Calc 12.7 L eGFR 11 L* BUN/Creatinine Ratio 7 L Glucose 148 H D Calculated Osmolality 287 Calcium 9.6 Corrected Calcium 9.6 Phosphorus 4.9 Magnesium 2.1 Total Bilirubin 0.2 L AST 15 ALT 9 L Alkaline Phosphatase 86 Total Protein 5.8 Albumin 4.3 Globulin 1.5 L Albumin/Globulin Ratio 2.9 H Random Vancomycin 18.7 ABG Interpretation ABG results: 06/25/25 12:30 ABG pH 7.33 L ABG pCO2 43 ABG pO2 143 H D ABG HCO3 23 ABG O2 Saturation 98 ABG Base Excess -3 Quality Measures Quality Measures VTE prophylaxis Assessment & Plan Assessment Current Active Medications: Generic Name Dose Route Start Last Admin Trade Name Freq PRN Reason Stop Dose Admin Acetaminophen 650 mg 06/25/25 08:16 07/02/25 07:24 Acetaminophen 325 Mg Tablet PO 07/25/25 08:15 650 mg Q6H PRN Administration PAIN OR FEVER > 101 Aspirin 81 mg 06/25/25 09:00 06/29/25 09:04 Aspirin Ec 81 Mg Tabec PO 07/25/25 08:59 81 mg On Hold: 06/29/25 16:58 QDAY ALEX Administration Atorvastatin Calcium 40 mg 06/26/25 21:00 07/01/25 20:26 Atorvastatin Calcium 20 Mg Tablet PO 07/26/25 20:59 40 mg HS ALEX Administration Clopidogrel Bisulfate 75 mg 06/25/25 09:00 06/29/25 09:04 Clopidogrel Bisulfate 75 Mg Tablet PO 07/25/25 08:59 75 mg On Hold: 06/29/25 16:57 QDAY ALEX Administration Duloxetine HCl 30 mg 06/26/25 09:00 07/01/25 20:26 Duloxetine Hcl 30 Mg Capsule PO 07/26/25 08:59 30 mg BID ALEX Administration Heparin Sodium (Porcine) 3,300 unit 06/25/25 11:42 06/30/25 12:04 Heparin Sod Inj 1000 Unit/Ml Vial 10 Ml INDWELLCAT 07/09/25 11:41 3,300 unit On Hold: 06/29/25 16:58 PRN PRN Administration DIALYSIS Ceftriaxone Sodium/Dextrose 1 gm in 50 mls @ 100 mls/hr 06/29/25 11:30 07/01/25 12:58 Rocephin/D5w 1gm Iv Premix IV 07/06/25 11:29 100 mls/hr QDAY ALEX Administration Insulin Human Lispro 0 unit 06/27/25 21:00 07/01/25 21:43 Insulin Lispro (Admelog) 1 Unit/0.01 Ml Unit SC 07/26/25 17:59 Not Given ACHS ALEX Protocol Labetalol HCl 10 mg 06/26/25 08:29 06/26/25 16:30 Labetalol Inj 5 Mg/Ml Vial 20 Ml IVP 07/25/25 08:16 10 mg Q4H PRN Administration SBP > 150 Levetiracetam 750 mg 06/30/25 09:00 07/01/25 20:26 Levetiracetam 250 Mg Tablet PO 07/30/25 08:59 750 mg BID ALEX Administration Metoclopramide HCl 5 mg 06/29/25 16:15 07/02/25 05:23 Metoclopramide Inj 5 Mg/Ml Vial 2 Ml IVP 07/29/25 16:14 5 mg Q6HR ALEX Administration Protocol Ondansetron HCl 4 mg 06/25/25 08:16 06/29/25 05:56 Ondansetron Inj 2 Mg/Ml Inj 2 Ml IV 07/25/25 08:15 4 mg Q6H PRN Administration NAUSEA OR VOMITING Protocol Pantoprazole Sodium 40 mg 07/01/25 09:00 07/01/25 08:29 Pantoprazole 40 Mg Tablet PO 07/31/25 08:59 40 mg QDAY ALEX Administration Protocol Pharmacy Consult 1 each 06/25/25 12:21 Pharmacy Renal Dose Adjustment 1 Ea XX 07/25/25 12:20 PRN PRN CONSULT Pharmacy Consult 1 each 06/28/25 09:00 Vancomycin Pharmacy To Dose 1 Each Each IV 07/28/25 08:59 QDAY PRN CONSULT Ropinirole HCl 0.25 mg 06/26/25 21:00 07/01/25 20:26 Ropinirole Hcl 0.25 Mg Tablet PO 07/26/25 20:59 0.25 mg HS ALEX Administration Sennosides 2 tab 06/25/25 09:00 Senna Tablet PO 07/25/25 08:59 BID PRN CONSTIPATION Protocol Valsartan 40 mg 06/27/25 08:36 07/01/25 08:29 Valsartan 40 Mg Tablet PO 07/26/25 08:59 40 mg QDAY ALEX Administration Plan Ms. Carmona is a 64-year-old woman with a history of diabetes, CAD with CABG, pacemaker due to third-degree heart block, ESRD (Monday, follows with Dr Awad), seizure disorder confirmed on EEG on [facility] followed by Dr. Chan, press syndrome, who presented with encephalopathy likely secondary to polypharmacy and/or postictal state , was found to have GPC bacteremia with 1/ 2 cultures growing Staph epidermidis. Possible source is Tunneled chatheter . Currently on Vanc , pending repeat BC, Cardiology was consulted for CHELSY. #Staph epidermidis bacteremia # endocarditis ruled out Blood cultures taken 06/24/25 positive for Staph epidermidis Repeat Bcx NGTD at 48 hours TLC was exchanged yesterday w/o complications will continue regular HD session, and continue abx as per ID ECHO on 06/21:Summary 1. Left ventricle size is normal and systolic function is normal. Visually estimated ejection fraction is 55-60%. There is grade I diastolic dysfunction.There is moderate concentric hypertrophy noted. 2. Right ventricle size is normal and systolic function is normal. Estimated RVSP is 21 mmHg. 3. There is mild aortic valve sclerosis with no stenosis and no regurgitation. 4. There is mild tricuspid valve regurgitation. 5. Normal IVC with estimated RA pressure 8 mmHg. Cardiology was consulted for CHELSY. Patient denies any kind of swallowing problems or any kind of esophageal interventions or previous surgeries. Patient denies any kind of gastric ulcers bleeding and any other hematemesis or hematochezia. Patient denies any issues with anesthesia previously. Patient explained all the risks, benefits and alternatives of CHELSY including the risk of perforation, bleeding, respiratory failure secondary to sedation, injury to teeth gums esophagus and stomach. Patient understands all risks and benefits and provided consent for the procedure. 06/30/2025 CHELSY was done for evaluation endocarditis: no valvular vegatations. thrombi . no evidence of endocarditis> Summary 1. Indications: Bacteremia - C/f endocarditis. 2. No clear evidence of any valvular vegetation or any vegetations on the pacemaker leads. No endocarditis. 3. Bubble study negative for PFO and ASD. No LA or JESSICA thrombus. 4. Normal LV size and function with an EF of around 60 to 65%. 5. Normal RV size and function. 6. Trace MR, TR and PI. No pericardial effusion. #Bradycardia, 3rd degree heart block s/p pacemaker #Hx CAD #Hypertensive emergency #HTN EKG on 06/25/25 shows no acute changes Plan: -monitor on telemetry -control RF such as HTN and hyperglycemia -monitore Electrolytes, replace PRN, -Aspirin 81 qhs -Atorvastatin 40 qhs -Plavix 75 qhs #Acute encephalopathy 2/2 #Polypharmacy vs metabolic in a setting of bacteremia vs seizure/postictal state #PRES #Seizure disorder #UTI #ESRD on HD #T2DM c/b peripheral neuropathy #Hx CVA #Depression to be managed by primary team Patient care was discussed with attending physician Dr. Ricardo Oseguera MD PGY-3 I have carefully reviewed this document. Due to imperfections in the voice software, there could be grammatical errors including phonetic/typographic errors. This in no way compromises the medical care the patient is receiving Attending Provider Attestation/Addendum I have personally seen and examined the patient separately on the above date of service and discussed the plan of care with the resident. I reviewed the resident Dr. Niya Engel consultation progress note and agree with the resident findings and plan in the note above and have also edited the documentation to reflect my findings and plan. Zaheer Marks M.D. Interventional Cardiology
[2025-07-02] MEDS: EPOETIN ALFA-EPBX INJ 10,000 UNIT/ML VIAL (ESRD) 10000 UNIT IV (09:44)
--- NOTE | 2025-07-02 09:46 | CHAP ---
Patient was visited by a Spiritual Care Volunteer on 07/01/2025 between 0900 and 1140 and received comfort, encouragement and/or prayer.
--- NOTE | 2025-07-02 10:34 | ESDS_ITS ---
<Statement entered by Lenore Osullivan DO - 07/02/25 16:37> I, Lenore Osullivan DO, attest that I was physically present for the [place] portions of the service and evaluated the patient with the resident and I reviewed and discussed the case with the resident and agree with the resident's findings and plans of care as documented above Planned Discharge Date 07/02/25 DS: Providers Provider Date of admission: 06/25/25 08:16 Primary care physician: Catalina Angulo PA-C([facility] Admitting Provider: Lenore Osullivan DO Attending Provider on Admission: Lenore Osullivan DO Consults: 06/25/25 08:18 Consult to Nephrology Routine Comment: Consulting Provider: Kailey Awad 06/25/25 09:38 Consult to Neurology / Tele-Neurology Routine Comment: PRESS Consulting Provider: Kaleb Chan 06/25/25 11:14 Referral Speech Therapy Routine Comment: 06/27/25 09:57 Consult to Infectious Diseases Routine Comment: Consulting Provider: Matthew Canseco 06/30/25 00:16 PT [Referral Physical Therapy] Routine Comment: Physician Instructions: Instructions: generalized weakness 06/30/25 07:01 Consult to Cardiology Stat Comment: Consulting Provider: Zaheer Marks 07/01/25 12:45 Referral Physical Therapy Routine Comment: Physician Instructions: Attending Provider on DC: Manisha Flaherty MD Discharging Provider: Manisha Flaherty MD DS: Diagnosis Problem List Completed Was Problem List Reviewed/Reconciled?: Yes Hospital Course Hospital Course Hospital course: Hospital Course Ms. Carmona is a 64-year-old woman with a history of diabetes, CAD with CABG, pacemaker due to third-degree heart block, ESRD (Monday, follows with Dr Awad), seizure disorder confirmed on EEG on [facility] followed by PRES Jonas, who presented to the ED on 06/25 with encephalopathy likely secondary to HTN emergency, polypharmacy and/or postictal state. BP managed with home valsartan 40 mg daily for tighter blood pressure control along with as needed labetalol. CT head and MRI brain negative for acute infarct, hemorrhage, midline shift, mass effect. EEG 06/25 showed periodic generalized paroxysmal epileptiform discharges consistent with seizures. Blood cultures grew staph epidermidine and staph hominis in repeat sample with c/f tunneled dialysis catheter as source. Managed with IV vancomycin (06/28-07/11) and exchange of catheter on 07/01. Pt will continue vancomysin administration with dialysis until 07/11/2025. CHELSY showed no mitral or pacemaker vegetations. Continued on MWF dialysis schedule. Pt is Found to have UTI and urine culture grew E. Coli, Pt finished course of antibiotics with ceftriaxone. Throughout hospitalization, patient's mentation improved with complete return to baseline. She was able to ambulate with PT and recommended home health PT, and patient is hemodynamically stable and comfortable with discharge home with home health. Patient stable and medically cleared for discharge. Diagnoses #Acute encephalopathy - resolved #Hx PRES #Polypharmacy #Hypertensive emergency - resolved #History of HTN #Seizure disorder #Staph epidermidis, Staph hominis bacteremia #UTI #Hx recurrent UTI #Urinary retention #ESRD #T2DM c/b peripheral neuropathy #Bradycardia, 3rd degree heart block s/p pacemaker #Hx CAD #Hx CVA #Depression #Restless leg syndrome Discharge Instructions - Follow up with PCP within 1 week of discharge, if you do not have a primary care physician you can come see us at the [facility] by calling [phone] - Patient is to receive Vancomycin IV with dialysis until 07/11/2025 - Follow up with nephrology, neurology, and cardiology outpatient within 2 weeks after discharge - You have been prescribed a blood thinner, which can cause bleeding so please be careful with falls, if you have an injury or fall please immediately go to the ED - Continue rest of medications as previously prescribed - Return to the ED or call EMS if symptoms return and/or worsen Manisha Flaherty MD PGY1 Time Spent with Patient Time attestation: Total time spent providing and/or coordinating discharge services: Time spent: Greater than 30 minutes Exam Vital Signs Temp Pulse Resp BP Pulse Ox O2 Del Method O2 Flow Rate 96.8 F 80 18 121/66 96 Room Air 3 07/02/25 08:42 07/02/25 10:15 07/02/25 08:42 07/02/25 10:15 07/02/25 08:42 07/02/25 08:00 07/02/25 08:42 Narrative Exam General: No acute distress, well nourished Eye: PERRL, EOMI, normal conjunctiva, no scleral icterus HENT: Normocephalic, atraumatic, normal hearing, moist oral mucosa Neck: Supple, non-tender, no JVD, no lymphadenopathy Lungs: Clear to auscultation bilaterally, non-labored respirations, symmetric chest rise, no use of accessory muscles Heart: Normal S1 and S2, no S3 or S4 appreciated. Normal rate and regular rhythm, no murmurs, rubs gallops, or edema. Peripheral pulses intact bilaterally, capillary refill brisk distally Abdomen: Soft, non-tender, non-distended, normal bowel sounds. No guarding or rebound tenderness. Musculoskeletal: Normal range of motion and strength, no tenderness or swelling Skin: Skin is warm, dry, no rashes or lesions. Psychiatric: Cooperative, appropriate mood and affect Neurologic: Mental status: Orientation: Oriented to person, place, time, and situation Communication: Patient is cooperative and can follow simple instructions Language: Speech fluent, normal rate and volume, comprehension intact Cranial nerves: CN II: Visual shel[place] intact CN III: Pupils equal, round, and reactive to light CN III, IV, : No gaze deviation, no nystagmus Horizontal pursuit: intact Vertical pursuit: intact Ptosis: none CN V: Facial sensation to light touch intact bilaterally at the forehead, cheeks, and jaw line CN VII: Face symmetric, no facial droop appreciated CN VIII: Able to hear and respond to conversation at normal volume, intact to finger rub CN IX, X: Palate elevation symmetric, uvula midline CN XI: Head turn and shoulder shrug strong, symmetric bilaterally CN XII: Normal tongue protrusion without deviation, no fasciculations Motor: Normal bulk and tone No abnormal movements or fasciculations Muscle strength: Shoulder abduction: R 5/5 L 5/5 Elbow flexion: R 5/5 L 5/5 Elbow extension: R 5/5 L 5/5 Hip flexion: R 5/5 L 5/5 Hip extension: R 5/5 L 5/5 Knee flexion: R 5/5 L 5/5 Knee extension: R 5/5 L 5/5 Sensory: RUE: Light touch intact LUE: Light touch intact Chronically decreased sensation to light touch in b/l LE to just above knee and fingertips (2/2 peripheral neuropathy), symmetric Discharge Plan Plan Patient Disposition: Home w/HOME HEALTH Patient condition on transfer: Stable Care Plan Goals: - Follow up with PCP within 1 week of discharge, if you do not have a primary care physician you can come see us at the [facility] by calling [phone] - Patient is to receive Vancomycin IV with dialysis until 07/11/2025 - Follow up with nephrology, neurology, and cardiology outpatient within 2 weeks after discharge - You have been prescribed a blood thinner, which can cause bleeding so please be careful with falls, if you have an injury or fall please immediately go to the ED - Continue rest of medications as previously prescribed - Return to the ED or call EMS if symptoms return and/or worsen Prescriptions/Referrals Prescriptions/Med Rec: New levetiracetam 750 mg tablet 750 mg PO BID 30 Days Qty: 60 2RF Continued levetiracetam 500 mg tablet extended release 24 hr 1,000 mg PO .PM ropinirole 0.25 mg tablet 0.25 mg PO HS labetalol 100 mg tablet 50 mg PO DAILY PRN (Reason: blood pressure) Rx Instructions: SBP <180 midodrine 5 mg tablet 10 mg PO TID PRN (Reason: low blood pressure) Rx Instructions: SBP < 100 docusate sodium 100 mg capsule 100 mg PO BID aspirin [Adult Low Dose Aspirin] 81 mg tablet,delayed release (DR/EC) 81 mg PO HS Patient Comments: pt states takes all meds at night atorvastatin 40 mg tablet 40 mg PO HS Patient Comments: pt states takes all meds at night clopidogrel 75 mg tablet 75 mg PO HS Patient Comments: pt states takes all meds at night Tradjenta 5 mg tablet 5 mg PO HS Patient Comments: pt states takes all meds at night duloxetine [Cymbalta] 30 mg capsule,delayed release(DR/EC) 30 mg PO BID ascorbate calcium (vitamin C) 500 mg tablet 1 g PO HS Patient Comments: pt states takes all meds at night valsartan 40 mg Tablet 40 mg PO QDAY PRN (Reason: SBP >140) Qty: 30 3RF meclizine 25 mg tablet 25 mg PO PRN PRN (Reason: dizziness) All Day Allergy (cetirizine) 10 mg capsule 10 mg PO QDAY sevelamer carbonate [Renvela] 800 mg tablet 800 mg PO TID Rx Instructions: must administer with a meal/food metoclopramide HCl [Reglan] 10 mg tablet 10 mg PO Q4H PRN (Reason: nausea) pantoprazole 40 mg tablet,delayed release (DR/EC) 40 mg PO HS alprazolam 1 mg tablet 0.25 mg PO PRN PRN (Reason: anxiety) lidocaine 5 % adhesive patch,medicated 1 patch topical QDAY Qty: 15 0RF Rx Instructions: leave on most painful area for up to 12 hrs Referrals: Kev ([facility]),LUIS Arnold [Primary Care Provider] Patient/Caregiver Discharge Instructions Education Materials: Controlling High Blood Pressure, Urinary Tract Infections in Women, Understanding Urinary Tract ..., ED Seizure, Recurrent (Adult) Print Language: Yakut Stand Alone Forms: Lou Award Info., Patient Portal Info Letter Discharge Order Discharge Orders: Discharge (Routine); Ordered 07/02/25 Ordered By: Conchita Zepeda Quality Discharge Quality Measures VTE prophylaxis
--- NOTE | 2025-07-02 11:20 | PC.CC ---
Addendum entered by Alfonso Posey RN 07/02/25 12:34: Sarah [facility] accepted pt, pending SOC Original Note: tia ref sent, waiting for responses
[2025-07-02] MEDS: HEPARIN SOD INJ 1000 UNIT/ML VIAL 10 ML 3300 UNIT INDWELLCAT (11:41)
[2025-07-02] MEDS: PANTOPRAZOLE 40 MG TABLET PO (12:25)
[2025-07-02] MEDS: VALSARTAN 40 MG TABLET PO (12:25)
[2025-07-02] MEDS: DULoxetine HCL 30 MG CAPSULE PO (12:27)
[2025-07-02] MEDS: cefTRIAXone/D5w 1gm IV premix 1 GM/50 ML BAG IV (12:27)
--- NOTE | 2025-07-02 12:39 | PC.SS ---
follow up note: Patient may d/c home today. May need vanco to be adminstered during dialysis treatment. Physician team states [facility] is aware. We will need to send orders to dialysis.
--- NOTE | 2025-07-02 13:57 | PD.IDPROG ---
Subjective Subjective Interval history: bc neg except for 2 different species of coag neg staph on different days.bc neg from Exam Vital Signs Temp Pulse Resp BP Pulse Ox O2 Del Method O2 Flow Rate 96.7 F L 82 18 119/74 98 Room Air 3 07/02/25 12:15 07/02/25 12:25 07/02/25 12:15 07/02/25 12:25 07/02/25 12:15 07/02/25 12:15 07/02/25 08:42 Narrative Exam limited visit. reportedly going home soon Objective - Internal Medicine Labs 07/02/25 06:01 07/02/25 06:01 Labs: Laboratory Results - last 24 hr 07/02/25 06:01 WBC 9.7 RBC 3.12 L Hgb 9.2 L Hct 28.5 L MCV 91 MCH 29.5 MCHC 32.3 RDW Std Deviation 52.0 H Plt Count 198 D Neut % (Auto) 66 Lymph % (Auto) 18 [place] % (Auto) 11 Eos % (Auto) 2 Baso % (Auto) 1 Neut # (Auto) 6.4 Lymph # (Auto) 1.8 [place] # (Auto) 1.1 H Eos # (Auto) 0.2 Baso # (Auto) 0.1 Immature Gran # (Auto) 0.17 H Absolute Nucleated RBC 0.00 Immature Gran % 2 H Nucleated RBC % 0 Sodium 139 Potassium 3.9 Chloride 103 Carbon Dioxide 21.3 Anion Gap 15 BUN 31 H Creatinine 4.3 H* D Estim Creat Clear Calc 12.7 L eGFR 11 L* BUN/Creatinine Ratio 7 L Glucose 148 H D Calculated Osmolality 287 Calcium 9.6 Corrected Calcium 9.6 Phosphorus 4.9 Magnesium 2.1 Total Bilirubin 0.2 L AST 15 ALT 9 L Alkaline Phosphatase 86 Total Protein 5.8 Albumin 4.3 Globulin 1.5 L Albumin/Globulin Ratio 2.9 H Random Vancomycin 18.7 ABG Interpretation ABG results: 06/25/25 12:30 ABG pH 7.33 L ABG pCO2 43 ABG pO2 143 H D ABG HCO3 23 ABG O2 Saturation 98 ABG Base Excess -3 Assessment & Plan A&P Narrative single pos bc with coag neg staph. after pos bc with supervisor crack off before that has a cvl for hd other problems as noted helena lo for 14d from first neg bc. 06/28 thru 07/11 and ok to leave line in place bc with different strains of coag neg staph so ok to NOT remove line unless already done. rocephin per primary team. they started it friday 06/29 despite neg cx, at 1 gm/day she had been convinced of the dx of uti though organism is macario s so will change to po keflex for remainder of 7d course. looks like started due to low grade temp change of uncertain significance. ua abn cx with s germ no overt indication for lp now. if you want to send her out on po keflex adjusted for her ckd for remainder of 7d, that is ok with me. Time Spent With Patient Time: Total time spent is greater than 50% in coordination of care (as documented) at patient's floor/unit and/or counseling patient:
--- NOTE | 2025-07-03 10:01 | PC.CC ---
Addendum entered by Angelica Sylvester RN 07/04/25 11:05: SARAH will open patient on 07/06. Original Note: dc summary and dc instructions sent to Sarah [facility]KE[facility]. SOC still pending
== END 2025-07-02 16:57 | disposition home health service (06) | DRG 91 ==
LOC: SERX 05:32 → SERHOLD 08:47 → S3NX 11:20 → S2NX 06-26 06:11
PROVIDERS: Internal Medicine Cardiovascular Disease; Internal Medicine Nephrology; Student in an Organized Health Care Education/Training Program; Admitting Provider Internal Medicine; Emergency Provider Emergency Medicine; PCP Physician Assistant; Visit Provider Internal Medicine
PROC: (CPT 93312; principal; 2025-06-30 14:15)
DX: G92.8 Other toxic encephalopathy (principal); I67.83 Posterior reversible encephalopathy syndrome; N18.6 End stage renal disease; E87.20 Acidosis, unspecified; N39.0 Urinary tract infection, site not specified; I16.1 Hypertensive emergency; I12.0 Hypertensive chronic kidney disease with stage 5 chronic kidney disease or end stage renal disease; G40.909 Epilepsy, unspecified, not intractable, without status epilepticus; F41.9 Anxiety disorder, unspecified; E78.00 Pure hypercholesterolemia, unspecified; I25.10 Atherosclerotic heart disease of native coronary artery without angina pectoris; Z86.73 Personal history of transient ischemic attack (TIA), and cerebral infarction without residual deficits; B96.20 Unspecified Escherichia coli [E. coli] as the cause of diseases classified elsewhere; K21.9 Gastro-esophageal reflux disease without esophagitis; E11.22 Type 2 diabetes mellitus with diabetic chronic kidney disease; Z90.710 Acquired absence of both cervix and uterus; F32.A Depression, unspecified; Z95.1 Presence of aortocoronary bypass graft; E11.42 Type 2 diabetes mellitus with diabetic polyneuropathy; G25.81 Restless legs syndrome; D63.1 Anemia in chronic kidney disease; B95.7 Other staphylococcus as the cause of diseases classified elsewhere; E11.319 Type 2 diabetes mellitus with unspecified diabetic retinopathy without macular edema; Z98.84 Bariatric surgery status; Z99.2 Dependence on renal dialysis; Z79.02 Long term (current) use of antithrombotics/antiplatelets; Z79.82 Long term (current) use of aspirin; Z79.899 Other long term (current) drug therapy; Z95.0 Presence of cardiac pacemaker; Z87.440 Personal history of urinary (tract) infections
CPT/HCPCS: 36415; 36600; 51701; 70450; 70551; 71045; 80053; 80061; 80069; 80074; 80185; 80202; 80307; 80320; 80329; 81001; 82140; 82270; 82550; 82803; 83735; 84100; 84443; 84484; 85025; 85610; 86706; 87040; 87077; 87081; 87086; 87186; 92526; 92610; 93005; 93306; 93312; 95816; 96361; 96374; 96375; 96376; 97162; 99152; 99284; C1750; C1769; J0360; J0696; J1642; J1643; J1815; J1953; J2250; J2405; J2470; J2765; J3010; J3373; J3375; J3475; J3490; J7030; J7050; P9047; Q5105; Q5106; A9270; G0480; J1920; P0947

== ENCOUNTER → 2025-08-12 | Outpatient (CLI) | payer MEDICARE, MEDICAID, SELFPAY ==
--- NOTE | 2025-08-12 10:00 | XR_ITS ---
Examination: Abdomen sonogram, complete Date and time of exam: August 12, 2025, 10:51 a.m. INDICATIONS: Diagnosis renal failure, obstructive uropathy, abdominal pain this week. Technique: Multiple real-time grayscale transabdominal sonographic images of the abdomen have been obtained. Findings: Absent gallbladder Normal common bile duct 0.4 cm Pancreatic head 2.6 cm Aorta not enlarged. Liver 17.8 cm fatty infiltration irregular contour no focal liver lesions Normal hepatopetal portal venous flow Patent IVC Right kidney 9.2 cm renal cortex 1.4 cm Left kidney 9.8 cm renal cortex 1.1 cm Moderate renal scar formation, no hydronephrosis Spleen 10.0 cm IMPRESSION: Normal common bile duct Moderate hepatomegaly suspect primary hepatocellular disease Moderate bilateral renal scar formation
--- NOTE | 2025-08-12 10:30 | XR_ITS ---
Examination: Retroperitoneal ultrasound, complete Technique: Multiple high resolution grayscale images of the retroperitoneum obtained, including kidneys and bladder. Exam date and time: August 12, 2025, 10:37 a.m. INDICATIONS: Diagnosis of obstructive uropathy FINDINGS: Right kidney 10.0 cm cortex 1.2 cm Left kidney 9.3 cm renal cortex 1.2 cm Moderate renal scar formation, no hydronephrosis Contracted urinary bladder IMPRESSION: Bilateral renal cortical thinning Moderate renal scar formation No hydronephrosis
== END | disposition home or self-care (01) ==
PROVIDERS: PCP Physician Assistant; Referring Provider Internal Medicine Nephrology; Visit Provider Internal Medicine Nephrology
DX: N28.89 Other specified disorders of kidney and ureter (principal); R16.0 Hepatomegaly, not elsewhere classified
CPT/HCPCS: 76700; 76770

== ENCOUNTER 2025-08-13 10:20 | Emergency (ER) | payer MEDICARE, MEDICAID, SELFPAY ==
[2025-08-13] VITALS (7 sets, daily range): BP systolic 154–194; BP diastolic 86–98; PULSE 72–80; RESP 14–16; TEMP 36.4–36.6; O2SAT 94–98; BMI 24.2
--- NOTE | 2025-08-13 10:42 | EKG_ITS ---
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: : 1960 Requested By: Corinne Thacker Order Number: [id number] Reading MD: Corinne Thacker Measurements Intervals [place] Rate: 76 P: 21 MN: 161 QRS: -22 QRSD: 102 T: 93 QT: 390 QTc: 439 Interpretive Statements SINUS RHYTHM POSSIBLE LEFT VENTRICULAR HYPERTROPHY [VOLTAGE CRITERIA PLUS LAE OR QRS WIDENING] POSSIBLE LATERAL MYOCARDIAL INFARCTION , OF INDETERMINATE AGE [30 ms Q WAVE IN I/aVL/V5/V6] Compared to ECG 06/25/2025 12:42:46 Myocardial infarct finding now present T-wave abnormality no longer present Possible ischemia no longer present /store/S0/[id number].pdf
--- NOTE | 2025-08-13 10:42 | XR_ITS ---
Examination: CT cervical spine without contrast 2-D sagittal reconstructions 2-D coronal reconstructions 3-D reconstructions. Exam date and time: August 13, 2025, 1241 hours INDICATIONS: Seizures today, patient fell with injury to the neck, neck pain CTDI:vol (mGy) 14.2 DLP: (mGycm) 288 Technique: Multiple 2 mm axial sections of the cervical spine have been obtained. The coronal and sagittal reconstructions have been obtained. 3-D reconstructions have been obtained. Low dose protocols were performed. One or more of the following dose reduction techniques were used; automated exposure control, adjustment of the mA and/or KV according to patient size, use of iterative reconstruction technique. Findings: Axial sections demonstrate intact base of the skull. C1 exhibit satisfactory relationship to the odontoid. No acute cervical vertebral body fracture seen. Alignment posterior spinous processes satisfactory. Impression: No acute cervical fracture.
--- NOTE | 2025-08-13 10:42 | XR_ITS ---
Examination: CT brain head without contrast. 2-D sagittal coronal reconstructions Date and time of exam: August 13, 2025, 1241 hours INDICATIONS: Seizures today, patient fell with injury to the head, head pain CTDI: vol (mGy): 46.7 DLP: (mGycm): 967 Technique: Multiple CT axial sections of the brain have been obtained, 5 mm slice thickness. Contrast has not been administered. 2-D sagittal, coronal reconstructions have been obtained Low dose protocols were performed. One or more of the following dose reduction techniques were used; automated exposure control, adjustment of the mA and/or KV according to patient size, use of iterative reconstruction technique. Findings: No significant ventricular enlargement. Frontal scalp swelling Intra-axial or extra-axial hemorrhage density is not seen. No mass effect or midline shift Basal cisterns are not remarkable. Fourth ventricle is midline. Cranial vault intact. Impression: Negative for acute hemorrhage, mass effect or midline shift
--- NOTE | 2025-08-13 11:04 | PC.NURSE ---
Provider at bedside at this time
[2025-08-13 11:34] LABS: Basophils # (Auto) 0.1 Thou/mm3 (0.0-0.2); Basophils % (Auto) 1 % (0-2.5); Eosinophils # (Auto) 0.3 Thou/mm3 (0.0-0.5); Eosinophils % (Auto) 3 % (0-10); Hematocrit 32.8 % (36.0-46.0); Hemoglobin 10.6 g/dL (12.0-16.0); Immature Granulocytes Auto 0.05 Thou/mm3 (0.00-0.00); Lymphocytes # (Auto) 1.2 Thou/mm3 (1.0-4.8); Lymphocytes % (Auto) 12 % (10-50); Mean Corpuscular HGB Conc 32.3 g/dl (31.0-37.0); Mean Corpuscular Hemoglobin 31.8 pg (25.0-35.0); Mean Corpuscular Volume 99 fL (80-100); Monocytes # (Auto) 0.8 Thou/mm3 (0.0-0.8); Monocytes % (Auto) 8 % (0-12); Neutrophils # (Auto) 7.8 Thou/mm3 (1.8-7.7); Neutrophils % (Auto) 76 % (37-80); Nucleated Red Blood Cell # 0.00 Thou/mm3 (0.00-0.00); Nucleated Red Blood Cell % 0 /100 WBC (0); Platelet Count 244 Thou/mm3 (140-440); RDW Standard Deviation 59.1 fL (36.4-46.3); Red Blood Count 3.33 Miln/mm3 (4.00-5.20); White Blood Count 10.2 Thou/mm3 (3.6-11.0)
[2025-08-13 11:53] LABS: B-Type Natriuretic Peptide 126 pg/mL (0-100)
[2025-08-13 11:56] LABS: Alanine Aminotransferase 12 U/L (10-49); Albumin, Serum 4.4 gm/dL (3.4-4.8); Albumin/Globulin Ratio 1.7 (1.2-2.2); Alkaline Phosphatase 146 U/L (46-116); Anion Gap 15 (7-16); Aspartate Amino Transferase 17 U/L (0-34); BUN/Creatinine Ratio 7 Ratio (12-20); Bilirubin,Total 0.4 mg/dL (0.3-1.2); Blood Urea Nitrogen 33 mg/dL (9-23); Calcium 9.2 mg/dL (8.3-10.6); Calcium (Corrected) 9.2 mg/dL (8.5-10.1); Carbon Dioxide 24.5 mMol/L (20.0-31.0); Chloride 104 mMol/L (98-107); Creatinine (Component) 4.8 mg/dL (0.6-1.3); Estimated Creatinine Clearance 10.9 mL/min (>60); Globulin 2.6 gm/dL (2.3-3.5); Glucose 142 mg/dL (74-106); Lipase 40 U/L (12-53); Magnesium 2.2 mg/dL (1.6-2.6); Osmolality,Calculated 294 (275-295); Potassium 5.1 mMol/L (3.4-5.1); Sodium 143 mMol/L (136-145); Total Protein 7.0 gm/dL (5.7-8.2); Troponin I < 0.020 ng/mL (0.0-0.045); eGFR 10 See Note
[2025-08-13] MEDS: LABETALOL 100 MG TABLET 50 MG PO (12:26)
--- NOTE | 2025-08-13 13:05 | PC.NURSE ---
Pt not having any seizure symptoms at this time. AAOx4, GCS 15. notified of pt's high BP
[2025-08-13] MEDS: ACETAMINOPHEN 325 MG TABLET 650 MG PO (13:34)
[2025-08-13] MEDS: levETIRAcetam INJ 100 MG/ML VIAL 5ML 1000 MG IVP (14:02)
[2025-08-13 14:18] LABS: INR 0.9 (0.9-1.3); Partial Thromboplastin Time 20.1 Seconds (22.0-36.0); Prothrombin Time 10.0 Seconds (9.0-12.2)
--- NOTE | 2025-08-13 14:47 | PC.NURSE ---
Dr. Torres at bedside. Per Dr. Torres to hold off on giving pt Hydralazine at this time, pt will be d/c and go to dialysis
--- NOTE | 2025-08-13 17:40 | PD.EDFALL ---
ED Fall Injury RME/HPI General Chief Complaint: Seizure Stated Complaint: SEIZURE Time Seen by Provider: 08/13/25 10:44 Arrival date/time: 08/13/25 10:20 RME / HPI RME / HPI Narrative: 65 year old female with history of CVA, seizures, CAD s/p CABG and pacemaker placement, hypertension, ESRD on HD, presents to ED BIBA from home for evaluation of facial injury following a ground level fall. Per medics, on scene reported the patient was in the restroom when he heard a thud and found the patient lying on the bathroom floor. Patient doesn't recall much of what occurred but does remember standing in the bathroom. In the ED, patient complains of pain to the bridge of her nose and forehead. No other injuries or complaints reported. Related Data Home Medications ?Medication ?Instructions ?Recorded ?Confirmed aspirin 81 mg tablet,delayed 81 mg PO HS 11/28/24 08/15/25 release (Adult Low Dose Aspirin) atorvastatin 40 mg tablet 40 mg PO HS 11/28/24 08/15/25 clopidogrel 75 mg tablet 75 mg PO HS 11/28/24 08/15/25 duloxetine 30 mg capsule,delayed 30 mg PO BID 11/28/24 08/15/25 release (Cymbalta) linagliptin 5 mg tablet (Tradjenta) 5 mg PO HS 11/28/24 08/15/25 meclizine 25 mg tablet 25 mg PO PRN PRN dizziness 01/08/25 08/15/25 cetirizine 10 mg capsule (All Day 10 mg PO QDAY 02/19/25 08/15/25 Allergy (cetirizine)) metoclopramide HCl 10 mg tablet 10 mg PO Q8H PRN nausea 02/19/25 08/15/25 (Reglan) sevelamer carbonate 800 mg tablet 800 mg PO TID 02/19/25 08/15/25 (Renvela) docusate sodium 100 mg capsule 100 mg PO BID 05/28/25 08/15/25 labetalol 100 mg tablet 50 mg PO DAILY blood pressure 05/28/25 08/15/25 midodrine 5 mg tablet 10 mg PO TID PRN low blood pressure 05/28/25 08/15/25 ropinirole 0.25 mg tablet 0.25 mg PO BID 05/28/25 08/15/25 ascorbic acid (vitamin C) 500 mg 500 mg PO BID 08/15/25 08/15/25 tablet (Vitamin C) buspirone 10 mg tablet 10 mg PO BID 08/15/25 08/15/25 pantoprazole 40 mg tablet,delayed 40 mg PO BID 08/15/25 08/15/25 release vitamin B comp no.3-folic acid 1 1 tab PO QDAY 08/15/25 08/15/25 mg-vit C 60 mg-biotin 300 mcg tablet (Sarahi-Sixto Rx) Previous Rx's ?Medication ?Instructions ?Recorded levetiracetam 750 mg tablet 750 mg PO BID 30 days #60 tabs 07/02/25 comp.stocking,thigh,long,small #12 ea 08/16/25 Allergies Allergy/AdvReac Type Severity Reaction Status Date / Time No Known Allergies Allergy Verified 06/24/25 12:31 Review of Systems Review of Systems Systems Reviewed: All systems reviewed, normal except as documented Past Medical History Past Medical History NEUROLOGIC: Positive Neurological Disorders, Cerebrovascular Accident and Seizures CARDIAC: Positive Cardiac Disorders, Coronary Artery Disease, Hypercholesterolemia, Hypertension and Hypotension GASTROINTESTINAL: Positive Gastrointestinal Disorders, Esophageal Varices and Gastroesophageal Reflux Disease GENITOURINARY: Positive Genitourinary Disorders, Renal Disease and Dialysis MUSCULOSKELETAL: Positive Fractures ENT: Positive Ear Infection ENDOCRINE: Positive Endocrine Disorders and Diabetes Mellitus Type 2 PSYCHO/SOCIAL: Positive Recreational Drug Use and Anxiety OTHER HISTORY: Positive Falls, Chicken Pox, Measles and Mumps Family History FAMILY HISTORY: Positive Family Cancer Surgical History SURGICAL: Positive Open Heart Surgery, Coronary Artery Bypass Graft, Pacemaker, Abdominal Surgery, Gastric Bypass Surgery, Hysterectomy and Section Social History SMOKING STATUS: Never smoker SECOND HAND EXPOSURE: No SUBSTANCE USE: does not use ED Exam Narrative Physical exam: GENERAL APPEARANCE: alert and oriented x 4, well-developed, well-nourished, obese HEENT: Normocephalic, hematoma to the bridge of nose and mid forehead; pupils equal, round, reactive to light; EOMI; mucous membranes pink, moist; oropharynx clear NECK: Supple LUNGS: CTABL; no wheezes, no rales, no rhonchi HEART: Regular rate, regular rhythm; normal S1, S2; no murmurs ABDOMEN: non distended; normal BS; soft, no tenderness, no guarding, no rebound; no masses, no organomegaly, no hernia EXTREMITIES: atraumatic; no edema; moving all extremities NEUROLOGIC: awake; alert and oriented x4; cranial nerves II-XII grossly intact; no focal sensory or motor deficits PSYCHIATRIC: appropriate mood and affect SKIN: warm, dry, normal color; no rashes Course Quality Measures none Orders Category Date Time Status Acetylene Torch Operator NOW Care 08/13/25 10:42 Completed Acetylene Torch Operator Q4H START 00 Care 08/13/25 10:56 Completed EKG (ED ONLY) *Do not use* NOW Care 08/13/25 10:42 Completed EKG (ED ONLY) *Do not use* NOW Care 08/13/25 10:44 Completed Seizure precautions NOW Care 08/13/25 10:[address] cervical spine wo con Stat Exams 08/13/25 10:[address] head/brain wo con Stat Exams 08/13/25 10:42 Completed EKG (ED Only) Stat Exams 08/13/25 10:42 Draft EKG (ED Only) Stat Exams 08/13/25 10:44 Ordered B-Type Natriuretic Peptide Stat Lab 08/13/25 11:03 Completed CBC Stat Lab 08/13/25 11:03 Completed Comprehensive Metabolic Panel Stat Lab 08/13/25 11:03 Completed Lipase Stat Lab 08/13/25 11:03 Completed Magnesium Stat Lab 08/13/25 11:03 Completed Partial Thromboplastin Time Stat Lab 08/13/25 12:10 Completed Prothrombin Time with INR Stat Lab 08/13/25 12:10 Completed Troponin I Stat Lab 08/13/25 11:03 Completed Acetaminophen Tab [Tylenol Tab] Med 08/13/25 13:07 Discontinued 650 mg PO X1 ONE Labetalol Tab [Trandate Tab] Med 08/13/25 12:20 Discontinued 50 mg PO X1 ONE hydrALAZINE INJ [Apresoline Inj] Med 08/13/25 14:19 Discontinued 10 mg IVP X1 ONE levETIRAcetam INJ [Keppra Inj] Med 08/13/25 13:39 Discontinued 1,000 mg IVP X1 ONE Vital Signs Vital signs: Vital Signs Temperature 97.6 F 08/13/25 10:28 Pulse Rate 77 08/13/25 10:28 Respiratory Rate 16 08/13/25 10:28 Blood Pressure 162/92 H 08/13/25 10:28 Pulse Oximetry (%) 95 08/13/25 10:28 Oxygen Delivery Method Room Air 08/13/25 10:28 Pulse ox is 95% on room air which is adequate. Fall MDM Narrative MDM Narrative:: Samara Arcos am scribing for and in the presence of Dr. Torres. Through ED course, the patient was given Labetalol, 1g Keppra for suspected seizure. Hydralazine was ordered however was not administered. The patient was sent to dialysis for her scheduled dialysis treatment. We reviewed all the results, analysis, and treatment plans. Patient is amenable to discharge to the dialysis center. Strict return precautions were outlined. Patient data External records reviewed:: [facility] previous records and EMS form Clinical information provided by:: patient, EMS and spouse Social determinants that could affect healthcare access:: none Patient has the following chronic illnesses:: CVA, seizures, CAD s/p CABG and pacemaker placement, hypertension, ESRD on HD How is presenting disease/condition affected by chronic disease/condition?: exacerbated by Evaluation data The following diagnostics were reviewed and interpreted by me:: lab results, radiology exam(s) and EKG tracing(s) (EKG @ 10:42, interpreted by me, normal sinus rhythm, rate 76, no STEMI. ) Lab and/or radiology exams considered but not ordered:: None Interpretation Summary: Ordering Physician: Corinne Torres MD Date of Service: 08/13/25 Procedure(s): CT cervical spine wo con Accession Number(s): [id number] cc: Kev ([facility]),Catalina SMITH; Dain Quick MD; Corinne Torres MD~ Examination: CT cervical spine without contrast 2-D sagittal reconstructions 2-D coronal reconstructions 3-D reconstructions. Exam date and time: August 13, 2025, 1241 hours INDICATIONS: Seizures today, patient fell with injury to the neck, neck pain CTDI:vol (mGy) 14.2 DLP: (mGycm) 288 Technique: Multiple 2 mm axial sections of the cervical spine have been obtained. The coronal and sagittal reconstructions have been obtained. 3-D reconstructions have been obtained. Low dose protocols were performed. One or more of the following dose reduction techniques were used; automated exposure control, adjustment of the mA and/or KV according to patient size, use of iterative reconstruction technique. Findings: Axial sections demonstrate intact base of the skull. C1 exhibit satisfactory relationship to the odontoid. No acute cervical vertebral body fracture seen. Alignment posterior spinous processes satisfactory. Impression: No acute cervical fracture. Dictated By: Dain Quick MD Signed By: <Electronically signed by Dain Quick MD in OV> 08/13/25 1300 Ordering Physician: Corinne Torres MD Date of Service: 08/13/25 Procedure(s): CT head/brain wo [facility] Accession Number(s): [id number] cc: Kev ([facility]),Catalina SMITH; Dain Quick MD; Corinne Torres MD~ Examination: CT brain head without contrast. 2-D sagittal coronal reconstructions Date and time of exam: August 13, 2025, 1241 hours INDICATIONS: Seizures today, patient fell with injury to the head, head pain CTDI: vol (mGy): 46.7 DLP: (mGycm): 967 Technique: Multiple CT axial sections of the brain have been obtained, 5 mm slice thickness. Contrast has not been administered. 2-D sagittal, coronal reconstructions have been obtained Low dose protocols were performed. One or more of the following dose reduction techniques were used; automated exposure control, adjustment of the mA and/or KV according to patient size, use of iterative reconstruction technique. Findings: No significant ventricular enlargement. Frontal scalp swelling Intra-axial or extra-axial hemorrhage density is not seen. No mass effect or midline shift Basal cisterns are not remarkable. Fourth ventricle is midline. Cranial vault intact. Impression: Negative for acute hemorrhage, mass effect or midline shift Dictated By: Dain Quick MD Signed By: <Electronically signed by Dain Quick MD in OV> 08/13/25 1301 Medications / Prescriptions Medications or Prescriptions considered but not ordered:: None Medication administrations:: Medication Administration History Discontinued Medications Acetaminophen (Acetaminophen 325 Mg Tablet) 650 mg PO X1 ONE Stop: 08/13/25 13:08 Last Admin: 08/13/25 13:34 Dose: 650 mg Documented By: DO Hydralazine HCl (Hydralazine Inj 20 Mg/Ml Vial) 10 mg IVP X1 ONE Stop: 08/13/25 14:20 Last Admin: 08/13/25 14:56 Dose: Not Given Documented By: DO Non-Admin Reason: Cancelled by Provider Labetalol HCl (Labetalol 100 Mg Tablet) 50 mg PO X1 ONE Stop: 08/13/25 12:21 Last Admin: 08/13/25 12:26 Dose: 50 mg Documented By: KM Levetiracetam (Levetiracetam Inj 100 Mg/Ml Vial 5ml) 1,000 mg IVP X1 ONE Stop: 08/13/25 13:40 Last Admin: 08/13/25 14:02 Dose: 1,000 mg Documented By: DO See above Consultations Consultation(s) initiated? (list below): No Diagnosis Fall Differential Diagnosis: syncope and other (seizure ) Most likely diagnosis given after review of the tests above:: Syncope Facial contusion Hypertensive urgency Admission Indicated Admission indicated?: not indicated Admission Request Was there a request for admission?: No Disposition Plan Disposition Plan: Discharge Discharge Attestation Discharge Attestation: The patient and all family members were given an opportunity to ask questions and understood the discharge instructions. Discharge instructions specifically effects, indications for sooner follow up or return to the emergency department, and the expected course of current diagnosis. Patient condition: Stable Discharge Plan Plan Patient Disposition: HOME (Self Care) Prescriptions/Referrals Prescriptions/Med Rec: No Action ropinirole 0.25 mg tablet 0.25 mg PO BID labetalol 100 mg tablet 50 mg PO DAILY Rx Instructions: FOR SBP >140 midodrine 5 mg tablet 10 mg PO TID PRN (Reason: low blood pressure) Rx Instructions: SBP < 100 docusate sodium 100 mg capsule 100 mg PO BID aspirin [Adult Low Dose Aspirin] 81 mg tablet,delayed release (DR/EC) 81 mg PO HS Patient Comments: pt states takes all meds at night atorvastatin 40 mg tablet 40 mg PO HS Patient Comments: pt states takes all meds at night clopidogrel 75 mg tablet 75 mg PO HS Patient Comments: pt states takes all meds at night Tradjenta 5 mg tablet 5 mg PO HS Patient Comments: pt states takes all meds at night duloxetine [Cymbalta] 30 mg capsule,delayed release(DR/EC) 30 mg PO BID meclizine 25 mg tablet 25 mg PO PRN PRN (Reason: dizziness) All Day Allergy (cetirizine) 10 mg capsule 10 mg PO QDAY sevelamer carbonate [Renvela] 800 mg tablet 800 mg PO TID Rx Instructions: must administer with a meal/food metoclopramide HCl [Reglan] 10 mg tablet 10 mg PO Q8H PRN (Reason: nausea) levetiracetam 750 mg tablet 750 mg PO BID 30 Days Qty: 60 2RF Sarahi-Sixto Rx 1-60-300 mg-mg-mcg tablet 1 tab PO QDAY ascorbic acid (vitamin C) [Vitamin C] 500 mg tablet 500 mg PO BID pantoprazole 40 mg tablet,delayed release (DR/EC) 40 mg PO BID buspirone 10 mg tablet 10 mg PO BID (DME) comp.stocking,thigh,long,small Misc 1 ea .Route DAILY Qty: 12 0RF Rx Instructions: Wear during the day when walking Referrals: Kev ([facility]),LUIS Arnold [Primary Care Provider] - In 1 week Problem List Clinical Impression: Syncope, Facial contusion, Hypertensive urgency Patient/Caregiver Discharge Instructions Education Materials: ED High Blood Pressure ... Additional Instructions: Follow up today for dialysis Print Language: Sami Stand Alone Forms: Lou Award Info., Patient Portal Info Letter
== END 2025-08-13 15:10 | disposition home or self-care (01) ==
PROVIDERS: Emergency Provider Emergency Medicine; PCP Physician Assistant
DX: S00.83XA Contusion of other part of head, initial encounter (principal); S19.9XXA Unspecified injury of neck, initial encounter; I16.0 Hypertensive urgency; R55 Syncope and collapse; R94.31 Abnormal electrocardiogram [ECG] [EKG]; R56.9 Unspecified convulsions; I12.0 Hypertensive chronic kidney disease with stage 5 chronic kidney disease or end stage renal disease; N18.6 End stage renal disease; E78.00 Pure hypercholesterolemia, unspecified; I25.10 Atherosclerotic heart disease of native coronary artery without angina pectoris; W18.30XA Fall on same level, unspecified, initial encounter; Z95.1 Presence of aortocoronary bypass graft; Z95.0 Presence of cardiac pacemaker; Z99.2 Dependence on renal dialysis
CPT/HCPCS: 36415; 70450; 72125; 80053; 83690; 83735; 83880; 84484; 85025; 85610; 85730; 93005; 96374; 99284; J1953; A9270

== ENCOUNTER 2025-08-14 21:46 | Inpatient (IN) | payer MEDICARE, MEDICAID, SELFPAY ==
[2025-08-14 21:54] VITALS: BP 93/63; PULSE 76; RESP 18; TEMP 37.1; O2SAT 97
[2025-08-14 21:55] VITALS: BMI 24.2
[2025-08-14 22:31] VITALS: PULSE 76; RESP 18; O2SAT 97
--- NOTE | 2025-08-14 22:32 | XR_ITS ---
Examination: CT maxillofacial, without intravenous contrast. 2-D sagittal reconstructions. 3-D reconstructions. Date and time of exam: August 14, 2025, 11:13 p.m. INDICATIONS: Patient fell yesterday with injury to the face, facial pain CTDI: vol (mGy): 19 DLP: (mGycm): 411 Technique: Multiple axial images of maxillofacial region, 3.0 mm slice thickness. 2-D sagittal and coronal reconstructions. 3-D reconstructions. Low dose protocols were performed. One or more of the following dose reduction techniques were used; automated exposure control, adjustment of the mA and/or KV according to patient size, use of iterative reconstruction technique. Findings: Frontal bones frontal sinuses intact Orbital rims intact Old appearing nasal bone fractures No depression zygomatic arches Pterygoid plates maxilla and the mandible intact IMPRESSION: No acute facial fracture.
--- NOTE | 2025-08-14 22:32 | XR_ITS ---
Examination: CT brain head without contrast. 2-D sagittal coronal reconstructions Date and time of exam: August 14, 2025, 11:11 p.m., comparison August 13, 2025 INDICATION: Patient fell 1 day ago with injury to the head, head pain CTDI: vol (mGy): 45 DLP: (mGycm): 863 Technique: Multiple CT axial sections of the brain have been obtained, 5 mm slice thickness. Contrast has not been administered. 2-D sagittal, coronal reconstructions have been obtained Low dose protocols were performed. One or more of the following dose reduction techniques were used; automated exposure control, adjustment of the mA and/or KV according to patient size, use of iterative reconstruction technique. Findings: No significant ventricular enlargement. Intra-axial or extra-axial hemorrhage density is not seen. No mass effect or midline shift Basal cisterns are not remarkable. Fourth ventricle is midline. Cranial vault intact. Impression: Negative for acute hemorrhage, mass effect or midline shift
[2025-08-14 22:39] VITALS: BMI 24.2
[2025-08-14 22:40] VITALS: BP 107/58; PULSE 74; RESP 19; TEMP 36.8; O2SAT 97
--- NOTE | 2025-08-14 23:04 | EKG_ITS ---
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
--- NOTE | 2025-08-14 23:16 | PC.NURSE ---
Patient came in from home via ambulance, patient had a ground level fall yesterday but did not seek medical attention until today as she felt she was experiencing generalized weakness. Patient has facial bruising to the eyes and left side of forehead. Patient is A/O x 3, resting in bed, family at bedside, no c/o pain.
[2025-08-14] MEDS: levETIRAcetam INJ 100 MG/ML VIAL 5ML 1000 MG IVP (23:22)
[2025-08-14 23:46] LABS: Basophils # (Auto) 0.1 Thou/mm3 (0.0-0.2); Basophils % (Auto) 1 % (0-2.5); Eosinophils # (Auto) 0.4 Thou/mm3 (0.0-0.5); Eosinophils % (Auto) 3 % (0-10); Hematocrit 31.6 % (36.0-46.0); Hemoglobin 9.9 g/dL (12.0-16.0); Immature Granulocytes Auto 0.06 Thou/mm3 (0.00-0.00); Lymphocytes # (Auto) 2.1 Thou/mm3 (1.0-4.8); Lymphocytes % (Auto) 18 % (10-50); Mean Corpuscular HGB Conc 31.3 g/dl (31.0-37.0); Mean Corpuscular Hemoglobin 31.4 pg (25.0-35.0); Mean Corpuscular Volume 100 fL (80-100); Monocytes # (Auto) 1.3 Thou/mm3 (0.0-0.8); Monocytes % (Auto) 11 % (0-12); Neutrophils # (Auto) 7.8 Thou/mm3 (1.8-7.7); Neutrophils % (Auto) 67 % (37-80); Nucleated Red Blood Cell # 0.00 Thou/mm3 (0.00-0.00); Nucleated Red Blood Cell % 0 /100 WBC (0); Platelet Count 258 Thou/mm3 (140-440); RDW Standard Deviation 60.2 fL (36.4-46.3); Red Blood Count 3.15 Miln/mm3 (4.00-5.20); White Blood Count 11.6 Thou/mm3 (3.6-11.0)
[2025-08-14 23:54] VITALS: BP 110/68; PULSE 73; RESP 12; TEMP 36.8; O2SAT 97
[2025-08-15] VITALS (24 sets, daily range): BP systolic 83–148; BP diastolic 46–99; PULSE 61–90; RESP 13–96; TEMP 36.2–36.8; O2SAT 92–100
[2025-08-15 00:02] LABS: INR 1.0 (0.9-1.3); Prothrombin Time 10.3 Seconds (9.0-12.2)
[2025-08-15 00:04] LABS: Alanine Aminotransferase 11 U/L (10-49); Albumin, Serum 3.8 gm/dL (3.4-4.8); Albumin/Globulin Ratio 1.5 (1.2-2.2); Alkaline Phosphatase 130 U/L (46-116); Anion Gap 11 (7-16); Aspartate Amino Transferase 14 U/L (0-34); BUN/Creatinine Ratio 8 Ratio (12-20); Bilirubin,Total 0.2 mg/dL (0.3-1.2); Blood Urea Nitrogen 37 mg/dL (9-23); Calcium 8.8 mg/dL (8.3-10.6); Calcium (Corrected) 9.0 mg/dL (8.5-10.1); Carbon Dioxide 26.7 mMol/L (20.0-31.0); Chloride 103 mMol/L (98-107); Creatinine (Component) 4.9 mg/dL (0.6-1.3); Estimated Creatinine Clearance 10.7 mL/min (>60); Free T4 (Free Thyroxine) 1.06 ng/dL (0.89-1.76); Globulin 2.5 gm/dL (2.3-3.5); Glucose 164 mg/dL (74-106); Osmolality,Calculated 293 (275-295); Potassium 4.1 mMol/L (3.4-5.1); Sodium 141 mMol/L (136-145); Thyroid Stimulating Hormone 1.20 uIU/mL (0.55-4.78); Total Protein 6.3 gm/dL (5.7-8.2); Troponin I < 0.020 ng/mL (0.0-0.045); eGFR 9 See Note
--- NOTE | 2025-08-15 00:36 | PD.EDWEAK ---
ED Weakness RME/HPI General Chief complaint: Weakness Stated complaint: WEAKNESS Time Seen by Provider: 08/14/25 22:19 Arrival date/time: 08/14/25 21:46 RME / HPI RME / HPI Narrative: DR. DO MAIN ED EVALUATION: 65 y/o female with Hx of CVA, Seizures, CAD, Hypercholesterolemia, HTN, Hypotension, Renal Disease on Dialysis, Recreational Drug Use, and Anxiety presents to ED c/o worsening weakness x 2 days and another near-syncopal episode today. Patient was seen in ED yesterday after syncopal episode causing her to fall onto her face resulting in 2 black eyes while in the restroom. Patient is followed by Dr. Payne, her Radio Interference Trouble Shooter. After discharge, patient underwent dialysis treatment and awoke at 4:30 PM and took her medication. Patient is currently on Labetalol, Keppra 750 mg, Atorvastatin, Kidney medication, Plavix, Buspirone, and Requip. Per daughter, patient underwent open heart surgery, triple bypass in September, and pacemaker placement in March by Dr. Mehta. Denies chest pain, shortness of breath, abdominal pain, dysuria, bloody stools, and back pain. Related Data Home Medications ?Medication ?Instructions ?Recorded ?Confirmed aspirin 81 mg tablet,delayed 81 mg PO HS 11/28/24 06/25/25 release (Adult Low Dose Aspirin) atorvastatin 40 mg tablet 40 mg PO HS 11/28/24 06/25/25 clopidogrel 75 mg tablet 75 mg PO HS 11/28/24 06/25/25 duloxetine 30 mg capsule,delayed 30 mg PO BID 11/28/24 06/25/25 release (Cymbalta) linagliptin 5 mg tablet (Tradjenta) 5 mg PO HS 11/28/24 06/25/25 ascorbate calcium (vitamin C) 500 1 g PO HS 12/01/24 06/25/25 mg tablet meclizine 25 mg tablet 25 mg PO PRN PRN dizziness 01/08/25 06/25/25 alprazolam 1 mg tablet 0.25 mg PO PRN PRN anxiety 02/19/25 06/25/25 cetirizine 10 mg capsule (All Day 10 mg PO QDAY 02/19/25 06/25/25 Allergy (cetirizine)) metoclopramide HCl 10 mg tablet 10 mg PO Q4H PRN nausea 02/19/25 06/25/25 (Reglan) pantoprazole 40 mg tablet,delayed 40 mg PO HS 02/19/25 06/25/25 release sevelamer carbonate 800 mg tablet 800 mg PO TID 02/19/25 06/25/25 (Renvela) docusate sodium 100 mg capsule 100 mg PO BID 05/28/25 06/25/25 labetalol 100 mg tablet 50 mg PO DAILY PRN blood pressure 05/28/25 06/25/25 levetiracetam 500 mg 1,000 mg PO .PM 05/28/25 06/25/25 tablet,extended release 24 hr midodrine 5 mg tablet 10 mg PO TID PRN low blood pressure 05/28/25 06/25/25 ropinirole 0.25 mg tablet 0.25 mg PO HS 05/28/25 06/25/25 Previous Rx's ?Medication ?Instructions ?Recorded valsartan 40 mg tablet 40 mg PO QDAY PRN SBP >140 #30 tabs 12/02/24 lidocaine 5 % topical patch 1 patch topical QDAY pain #15 ea 02/24/25 levetiracetam 750 mg tablet 750 mg PO BID 30 days #60 tabs 07/02/25 Allergies Allergy/AdvReac Type Severity Reaction Status Date / Time No Known Allergies Allergy Verified 06/24/25 12:31 Review of Systems Review of Systems Systems Reviewed: All systems reviewed, normal except as documented Past Medical History Past Medical History NEUROLOGIC: Positive Neurological Disorders, Cerebrovascular Accident and Seizures (1 week ago) CARDIAC: Positive Cardiac Disorders, Coronary Artery Disease, Hypercholesterolemia, Hypertension and Hypotension GASTROINTESTINAL: Positive Gastrointestinal Disorders, Esophageal Varices and Gastroesophageal Reflux Disease GENITOURINARY: Positive Genitourinary Disorders, Renal Disease and Dialysis MUSCULOSKELETAL: Positive Fractures ENT: Positive Ear Infection ENDOCRINE: Positive Endocrine Disorders and Diabetes Mellitus Type 2 PSYCHO/SOCIAL: Positive Recreational Drug Use and Anxiety OTHER HISTORY: Positive Falls, Chicken Pox, Measles and Mumps Family History FAMILY HISTORY: Positive Family Cancer Surgical History SURGICAL: Positive Open Heart Surgery, Coronary Artery Bypass Graft, Pacemaker, Abdominal Surgery, Gastric Bypass Surgery, Hysterectomy and Section ED Exam Narrative Physical exam: GEN. APPEARANCE: The patient is alert awake oriented X-3 in no distress, lying down comfortably, does not look ill/toxic. Patient has good eye contact. Patient is cooperative. VITALS: All vitals were reviewed and the pulse ox is 97% on room air which is normal according to my interpretation. HEENT: Normocephalic, no facial instability. Pupils are equal and reactive. BL periorbital ecchymosis with diffuse tenderness. Oral mucosa is moist. Patent Nares NECK: Supple, nontender, no thyromegaly, no meningismus, no JVD CHEST: Symmetrical, atraumatic, and with equal expansion , Nontender on palpation no deformity and no crepitus. CARDIOVASCULAR: Heart regular rhythm no murmur or gallop rub or extra beats. LUNGS: Clear to auscultation bilaterally with symmetrical chest rise. No laboring tachypnea or wheezing. No intercostal subcostal retraction. No rales and no rhonchi. ABDOMEN: Soft, flat, nontender to palpation, no guarding or rebound tenderness. There are no abnormal masses palpated. Active and normal bowel sounds. EXTREMITIES: Nontender. No edema. No cyanosis. Patient is able to move all 4 extremities well, with full ROM and good CSM. SKIN: Warm and dry, no jaundice or rashes noted. MUSCULOSKELETAL: No lumbar or midline bony tenderness. There is no CVA tenderness. No paraspinal muscle spasm or tenderness. NEURO: Patient is RICKS x 4, Cranial nerves II through XII grossly intact. There is no focal neurologic deficits noted. GCS is 15, PNS and CANDLE WICKER appear grossly intact. No saddle paresthesia. PSYCHIATRIC: Patient is in normal mood and affect. Course Quality Measures none Orders Category Date Time Status Admit to Inpatient Status Routine Admission 08/15/25 05:31 Active Patient Condition Routine Admission 08/15/25 05:31 Ordered Bedside COVID-19 Antigen Test NOW Care 08/14/25 22:59 Active Bedside Influenza A&B Antigen Test NOW Care 08/14/25 23:02 Completed EKG (ED ONLY) *Do not use* NOW Care 08/14/25 23:04 Completed Notify provider NEEDED Care 08/15/25 05:31 Active Seizure precautions NEEDED Care 08/15/25 05:32 Active Sequential Compression Device QSHIFT Care 08/15/25 05:30 Active Strict Intake and Output Routine Care 08/15/25 05:[address] facial bones wo con Stat Exams 08/14/25 22:[address] head/brain wo con Stat Exams 08/14/25 22:32 Completed EKG (ED Only) Stat Exams 08/14/25 23:04 Draft CBC AM DRAW Lab 08/16/25 05:00 Ordered CBC AM DRAW Lab 08/17/25 05:00 Ordered CBC AM DRAW Lab 08/18/25 05:00 Ordered CBC AM DRAW Lab 08/19/25 05:00 Ordered CBC AM DRAW Lab 08/20/25 05:00 Ordered CBC Stat Lab 08/14/25 23:25 Completed CMP [Comprehensive Metabolic Panel] Stat Lab 08/14/25 23:25 Completed Comprehensive Metabolic Panel AM DRAW Lab 08/16/25 05:00 Ordered Comprehensive Metabolic Panel AM DRAW Lab 08/17/25 05:00 Ordered Comprehensive Metabolic Panel AM DRAW Lab 08/18/25 05:00 Ordered Comprehensive Metabolic Panel AM DRAW Lab 08/19/25 05:00 Ordered Comprehensive Metabolic Panel AM DRAW Lab 08/20/25 05:00 Ordered Free T4 (Free Thyroxine) Stat Lab 08/14/25 23:25 Completed INR [Prothrombin Time with INR] Stat Lab 08/14/25 23:25 Completed Magnesium AM DRAW Lab 08/16/25 05:00 Ordered TSH [Thyroid Stimulating Hormone] Stat Lab 08/14/25 23:25 Completed Troponin I Stat Lab 08/14/25 23:25 Completed Troponin I Stat Lab 08/15/25 02:27 Completed UA, C/S IF [Urinalysis, C/S if Indicated] Stat Lab 08/15/25 01:39 Completed Acetaminophen Tab [Tylenol Tab] Med 08/15/25 05:30 Active 650 mg PO Q6H PRN levETIRAcetam INJ [Keppra Inj] Med 08/14/25 23:03 Discontinued 1,000 mg IVP X1 ONE Code Status Routine Oth 08/15/25 05:30 Ordered Oxygen Delivery PRN RT 08/15/25 05:30 Active Vital Signs Vital signs: Vital Signs Temperature 98.8 F 08/14/25 21:54 Pulse Rate 76 08/14/25 21:54 Respiratory Rate 18 08/14/25 21:54 Blood Pressure 93/63 08/14/25 21:54 Pulse Oximetry (%) 97 08/14/25 21:54 Oxygen Delivery Method Room Air 08/14/25 21:54 Weakness MDM Narrative MDM Narrative:: Scribe Attestation: I, Sylvie Murrell, am scribing for and in the presence of Dr. Do. Provider Notation: Although this document has been carefully reviewed, there may still be some phonetic and other typographical errors. These errors are purely grammatical due to imperfections in the software program and should not be construed in any way to compromise the substance of the patient's medical care during this visit. Patient is a 65-year-old female that is in the emergency department with concerns for weakness for the last couple days complicated by a fall yesterday. Vital signs and exam as listed. Concern for ACS during electrolyte abnormality intracranial hemorrhage, facial fracture, urinary tract infection among others. Ordered labs EKG chest x-ray CT brain, CT max face will also interrogate patient's cardiac device. Labs with leukocytosis 11.6, no left shift, hemoglobin 9.9 this is near patient's baseline, patient without any significant acute electrolyte abnormalities, creatinine is 4.9 BUN is 37 however patient does have a history of ESRD she is due for dialysis tomorrow. Troponins not elevated thyroid studies unremarkable. CT brain unremarkable. CT max face unremarkable. Interrogation of her cardiac device showed Dr. Mehta placed the cardiac device UA Repeat troponin Patient data External records reviewed:: [facility] previous records (Reviewed prior ED records from 06/25/25. Patient was seen for Altered mental status.) and EMS form Clinical information provided by:: patient, EMS and family (Daughter) Social determinants that could affect healthcare access:: none Patient has the following chronic illnesses:: Cerebrovascular Accident, Seizures, Coronary Artery Disease, Hypercholesterolemia, Hypertension, Hypotension, Esophageal Varices, Gastroesophageal Reflux Disease, Renal Disease, Dialysis, Diabetes Mellitus Type 2, Recreational Drug Use, Anxiety How is presenting disease/condition affected by chronic disease/condition?: exacerbated by Evaluation data The following diagnostics were reviewed and interpreted by me:: lab results, radiology exam(s) and EKG tracing(s) (EKG done at xxxx, bpm, normal intervals, non-specific T-wave changes, not a cardiac alert. - Interpreted by Dr. Maria Dolores Do.) Lab and/or radiology exams considered but not ordered:: None Interpretation Summary: RADIOLOGY Facial Bones CT: Findings: Frontal bones frontal sinuses intact Orbital rims intact Old appearing nasal bone fractures No depression zygomatic arches Pterygoid plates maxilla and the mandible intact IMPRESSION: No acute facial fracture. Head CT: Findings: No significant ventricular enlargement. Intra-axial or extra-axial hemorrhage density is not seen. No mass effect or midline shift Basal cisterns are not remarkable. Fourth ventricle is midline. Cranial vault intact. Impression: Negative for acute hemorrhage, mass effect or midline shift Medications / Prescriptions Medications or Prescriptions considered but not ordered:: None Medication administrations:: Medication Administration History Acetaminophen (Acetaminophen 325 Mg Tablet) 650 mg PO Q6H PRN PRN Reason: Fever >100.4 Stop: 09/14/25 05:29 Aspirin (Aspirin Ec 81 Mg Tabec) 81 mg PO QDAY [facility] Stop: 09/14/25 08:59 Buspirone HCl (Buspirone Hcl 5 Mg Tablet) 10 mg PO BID [facility] Stop: 09/14/25 08:59 Clopidogrel Bisulfate (Clopidogrel Bisulfate 75 Mg Tablet) 75 mg PO QDAY [facility] Stop: 09/14/25 08:59 Duloxetine HCl (Duloxetine Hcl 30 Mg Capsule) 30 mg PO BID [facility] Stop: 09/14/25 08:59 Levetiracetam (Levetiracetam 250 Mg Tablet) 750 mg PO BID [facility] Stop: 09/14/25 08:59 Metoclopramide HCl (Metoclopramide Inj 5 Mg/Ml Vial 2 Ml) 2.5 mg IVP Q8HR PRN; Protocol PRN Reason: nausea or vomiting Stop: 09/14/25 06:29 Ropinirole HCl (Ropinirole Hcl 0.25 Mg Tablet) 0.5 mg PO BID [facility] Stop: 09/14/25 08:59 Vitamin B Complex/Vit C/Folic Acid (Vit B12/Vit C/Fa (Nephrovite) Tablet) 1 tab PO QDAY [facility] Stop: 09/14/25 08:59 Discontinued Medications Levetiracetam (Levetiracetam Inj 100 Mg/Ml Vial 5ml) 1,000 mg IVP X1 ONE Stop: 08/14/25 23:04 Last Admin: 08/14/25 23:22 Dose: 1,000 mg Documented By: SR See above if any. Consultations Consultation(s) initiated? (list below): Yes Consultation #1 (Physician, Specialty, Details): Discussed with Dr. Webb for admission. Reviewed the patient?s HPI, PMHx, lab and/or radiology results. Discussed treatment plan. Will consult an admission to the hospitalist. Time: 02:31 Diagnosis Weakness Differential Diagnosis: acute myocardial infarction, anemia, hypoglycemia, hypothyroidism, rhabdomyolysis, sepsis and dehydration Most likely diagnosis given after review of the tests above:: Periorbital hematoma of both eyes, Recurrent syncope, Weakness Admission Indicated Admission indicated?: indicated Explain why admission is indicated or not indicated:: Periorbital hematoma of both eyes, Recurrent syncope, Weakness Admission Request Was there a request for admission?: Yes Admission Attestation Admission request attestation: Discussed case with [] from Hospitalist service regarding admission. Discussed patients ED course, exam findings, labs, and radiology results. The Hospitalist [agrees,declines] to accept the patient for admission. Disposition Plan Disposition Plan: Admit Discharge Plan Plan Patient Disposition: Admit Acute Care w/in Hospital Problem List Clinical Impression: Periorbital hematoma of both eyes, Recurrent syncope, Weakness
[2025-08-15 01:46] LABS: Collection Type, Urine Clean Catch
[2025-08-15 01:49] LABS: Bilirubin,Urine Negative (Negative); Blood,Urine Negative (Negative); Clarity,Urine Clear (Clear/Hazy); Color,Urine Lt-Yellow (Lt Yel-Yel); Culture Indicated,Urine Not Indicated; Glucose, Urine 1+ (Negative); Ketones,Urine Negative (Negative); Leukocyte Esterase,Urine Negative (Negative); Nitrite,Urine Negative (Negative); PH,Urine 7.5 (5.0-7.0); Protein,Urine 2+ (Neg - Trace); RBC,Urine < 1 /hpf (0-3); Specific Gravity,Urine 1.011 (1.001-1.035); Squamous Epithelial Cell,Urine < 1 /hpf (0-5); Urobilinogen,Urine Negative mg/dL (0.0-1.0); WBC,Urine 1 /hpf (0-5)
[2025-08-15 03:08] LABS: Troponin I < 0.020 ng/mL (0.0-0.045)
--- NOTE | 2025-08-15 06:00 | ESHP_ITS ---
<Statement entered by Koffi Bell MD - 08/15/25 19:40> A 65-year-old female with significant past medical history of CAD status post CABG in November 2023, hypertension, PRES, ESRD on HD since 2 years [M/W/F] following with Dr Awad and last dialysis is on the Monday before admission, CVA, hyper lipidemia, anxiety, recreational drug use, status post pacemaker, seizures since September 2024 on Keppra presented to the hospital with chief complaints of syncopal episode 2 days ago. Reported that 2 days ago, she is sitting on the commode and when tried to get up she had a fall following which she came to the ED and got CT scans following which she was discharged home on underwent hemodialysis on the day for 2 hours as she went to the dialysis center late. The next day patient is feeling severe generalized weakness and is not able to get out of the bed for which she came to the hospital. Vitals at the time of admission are stable. Labs at the time of admission are significant for WBC 11.6, hemoglobin 9.9, creatinine 4.9. Pacemaker interrogation was done. Consulted manager quality. Orthostatic vitals are ordered. Patient took labetalol on the day of admission. Takes labetalol and midodrine as as needed for blood pressure control. Syncopal episode might be due to orthostatic as per history. I have personally seen and examined the patient, agree with residents assessment and plan Patient plan of care was discussed with the attending physician, Dr. Minna Bell, PGY2 <Statement entered by Byron Buitrago DO - 08/15/25 14:10> Patient was seen and examined by me. After the review of the clinical data, I agree that the patient will need an admission for recurrent syncopa episdoes Plan of care discussed with patient who is in agreement. I Byron Buitrago DO, attest that I was physically present for [place] portions of evaluation, examined the patient, reviewed the labs and imaging, and discussed the plan of care and management with the residents team. I agree with the findings and plans documented above. 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 The patient was in the ED on 08/13/2025 after an episode of syncope. The evening of 08/14/2025 the patient was using the toilet not bearing down and experienced an episode of incident of dizziness and what she described as a feeling of immediate weakness. She denied trauma or losing consciousness. She was found to be hypotensive with a BP of 93/63 and have an EKG that showed a sinus rhythm with a rate of 71 and a QTc of 456. Patient was admitted for syncopal episode. ED Course: * Significant vitals on arrival: BP 92/63, remainder vitals within normal parameters * Significant labs: WBC 11.6, hemoglobin 9.9, BUN 37, creatinine 4.9, alk phos 130 * Imaging: Face CT was negative for any acute fractures, head CT negative for any acute hemorrhage or mass effect, EKG showed a sinus rhythm with a rate of 71 and a QTc of 456. * Urine: 0.5, 2+ protein, 1+ glucose * ED intervention: Patient was given 1 g Keppra. History: * Past medical history: As above in HPI * Surgical history: Triple coronary bypass in March 2024, pacemaker implantation early 2024, 3 C-sections, cholecystectomy * Social history: Lives at home with , denies alcohol or tobacco use Allergies: * No known drug allergies. Home Medications: (Pending Med Rec) * Cetirizine 10 mg daily * Alprazolam 0.25 mg p.o. as needed * Aspirin 81 mg daily * Atorvastatin 40 mg nightly * Plavix 75 mg nightly * Labetalol 50 mg p.o. daily as needed * Keppra 1 g daily at bedtime * Keppra 750 mg p.o. twice daily * Meclizine 25 mg p.o. as needed * Midodrine 10 mg p.o. 3 times daily as needed * Pantoprazole 40 mg p.o. nightly * Ropinirole 0.25 mg p.o. nightly * Sevelamer 800 mg p.o. 3 times daily * Tradjenta 5 mg p.o. nightly * Valsartan 40 mg p.o. as needed for SBP over 140 CODE STATUS: Full Code Review of Systems Review of Systems Narrative Review of Systems: Review of Systems: * General: Denies fevers, chills. * HEENT: Denies headache, congestion, or sore throat. * Cardiac: Denies chest pain or palpitations. * Pulmonary: Denies shortness of breath or cough. * GI: Denies nausea, vomiting, diarrhea, constipation, melena, or hematochezia. * : Denies dysuria, hematuria, frequency, or urgency. * MSK: Denies pain in the extremities, joints, or myalgias. Denies trauma after episode of sudden weakness. * Neuro: 1 episode of what the patient described as sudden weakness the evening before presentation. Denies vision changes, or speech difficulty. Exam Vital Signs Temp Pulse Resp BP Pulse Ox O2 Del Method 98.2 F 72 16 110/68 96 Room Air 08/15/25 02:35 08/15/25 02:35 08/15/25 02:35 08/15/25 02:35 08/15/25 02:35 08/15/25 02:35 Narrative Exam General: Awake and in no acute distress. Conversational and non-toxic appearing. Neurologic: GCS 15. Alert and oriented x3, no gross neurological deficit, and patient able to move all 4 extremities. HEENT: Ecchymoses across the nasal bridge and below the patient's eyes bilaterally. Normocephalic, atraumatic, mucous membranes moist. Pupils reactive to light. Heart: Regular rate and rhythm, normal S1 and S2, no murmurs. Lungs: Clear to auscultation bilaterally with no wheezing or crackles. Abdomen: Soft, nondistended, nontender, positive bowel sounds. No guarding or rebound tenderness. Extremities: No edema. 2+ radial and dorsalis pedis pulses bilaterally. Skin: Warm. Dry. No rash or ecchymoses. Results: Labs 08/14/25 23:25 08/14/25 23:25 Labs: Short CBC 08/14/25 Range/Units 23:25 WBC 11.6 H (3.6-11.0) Thou/mm3 Hgb 9.9 L (12.0-16.0) g/dL Hct 31.6 L (36.0-46.0) % Plt Count 258 (140-440) Thou/mm3 BMP 08/14/25 23:25 Sodium 141 Potassium 4.1 D Chloride 103 Carbon Dioxide 26.7 BUN 37 H Creatinine 4.9 H* Glucose 164 H Calcium 8.8 Cardiac Enzymes 08/14/25 08/15/25 Range/Units 23:25 02:27 Troponin I < 0.020 < 0.020 (0.0-0.045) ng/mL Liver Function 08/14/25 Range/Units 23:25 Total Bilirubin 0.2 L (0.3-1.2) mg/dL AST 14 (0-34) U/L ALT 11 (10-49) U/L Alkaline Phosphatase 130 H (46-116) U/L Albumin 3.8 D (3.4-4.8) gm/dL Urine 08/15/25 Range/Units 01:39 Urine Color Lt-Yellow (Lt Yel-Yel) Urine Clarity Clear (Clear/Hazy) Urine pH 7.5 H (5.0-7.0) Ur Specific [place] 1.011 (1.001-1.035) Urine Protein 2+ A (Neg - Trace) Urine Glucose (UA) 1+ A (Negative) Quality Measures Quality Measures none Advance care planning discussed with:: patient Medications Home Medications and Allergies Home Medications ?Medication ?Instructions ?Recorded ?Confirmed ?Type aspirin 81 mg tablet,delayed 81 mg PO HS 11/28/2405/29 History release (Adult Low Dose Aspirin) atorvastatin 40 mg tablet 40 mg PO HS 11/28/24 5 History clopidogrel 75 mg tablet 75 mg PO HS 11/28/24 5 History duloxetine 30 mg capsule,delayed 30 mg PO BID 11/28/24 06/25/25 History release (Cymbalta) linagliptin 5 mg tablet (Tradjenta) 5 mg PO HS 5 06/25/25 History ascorbate calcium (vitamin C) 500 1 g PO HS 12/01/24 1 History mg tablet meclizine 25 mg tablet 25 mg PO PRN PRN dizziness 0 01/08/25 06/25/25 History alprazolam 1 mg tablet 0.25 mg PO PRN PRN anxiety 0 02/19/25 06/25/25 History cetirizine 10 mg capsule (All Day 10 mg PO QDAY 06/25/25 History Allergy (cetirizine)) metoclopramide HCl 10 mg tablet 10 mg PO Q4H PRN nause a 02/19/25 06/25/25 History (Reglan) pantoprazole 40 mg tablet,delayed 40 mg PO HS 02/19/25 06/25/25 History release sevelamer carbonate 800 mg tablet 800 mg PO TID 06/25/25 History (Renvela) docusate sodium 100 mg capsule 100 mg PO BID 05/28/25 06/25/25 History labetalol 100 mg tablet 50 mg PO DAILY PRN blood pre ssure 05/28/25 06/25/25 History levetiracetam 500 mg 1,000 mg PO .PM 05/28/25 History tablet,extended release 24 hr midodrine 5 mg tablet 10 mg PO TID PRN low blood p ressure 05/28/25 06/25/25 History ropinirole 0.25 mg tablet 0.25 mg PO HS 05/28/2506/25 History Allergies Allergy/AdvReac Type Severity Reaction Status Date / Time No Known Allergies Allergy Verified 06/24/25 12:31 Visit Medications Acetaminophen (Acetaminophen 325 Mg Tablet) 650 mg PO Q6H PRN PRN Reason: Fever >100.4 Stop: 09/14/25 05:29 Discontinued Medications Levetiracetam (Levetiracetam Inj 100 Mg/Ml Vial 5ml) 1,000 mg IVP X1 ONE Stop: 08/14/25 23:04 Last Admin: 08/14/25 23:22 Dose: 1,000 mg Assessment & Plan Plan Summary: 65-year-old female past medical history of ESRD on dialysis 3 times a week, status post triple coronary artery bypass graft March 2024, pacemaker implantation for symptomatic bradycardia early 2024, seizures, labial blood pressure (hypertension and hypotension), CVA, hypercholesterolemia, anxiety, and recreational drug use presented to the ED 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 The patient was in the ED on 08/13/2025 after an episode of syncope. She was found to be hypotensive with a BP of 93/63 and have an EKG that showed a sinus rhythm with a rate of 71 and a QTc of 456. Patient was admitted for syncopal episode. #Syncopal Episode * Patient presented after syncopal episode, she was on the toilet not bearing down, no Valsalva maneuver * Patient denied loss of consciousness, described as a sudden onset of generalized weakness * Patient was in the ED approximately 48 hours before after a separate episode of syncope * Head CT and facial CT negative * EKG showed a sinus rhythm with a rate of 71 and a QTc of 456 * Differentials include: * Undiscovered underlying arrhythmia * Hypotension * Seizure Plan: * Telemetry monitoring floor * Cardiology consulted * Seizure precautions * Orthostatic vitals pending #ESRD on dialysis Monday * Patient's first syncopal episode this week was after dialysis session on 08/13/2025 * Patient presented with BUN 37, creatinine 4.9 * Patient still produces urine Plan: * Nephrology consulted * Strict ins and outs * Avoid nephrotoxic agents * Renally dose medications #A-fib * Per patient history * EKG showed no evidence of A-fib on arrival * Per medication review patient does not appear to be on anticoagulation Plan: * Pending cardiology consult * Consider starting anticoagulation #Labile blood pressure * Patient manages blood pressure at home with as needed midodrine, valsartan, labetalol * Blood pressure appropriate on admission Plan: * Treat hypertension or hypotension as needed #Seizure disorder * Per patient history Plan: * Restarted home Keppra 750 mg p.o. twice daily #Coronary artery disease status post triple bypass surgery in March 2024 * Patient takes aspirin and Plavix at home * EKG showed no evidence of acute ST segment changes * Patient endorsed no chest pain, palpitations, shortness of breath * Tropes negative Plan: * Aspirin 81 mg daily * Plavix 75 mg daily #Symptomatic bradycardia status post pacemaker placement early 2024 * Per patient history Plan: * Pending review of pacemaker interrogation report #Restless leg syndrome * Per patient history Plan: * Resumed home ropinirole 0.5 mg p.o. twice daily #Anxiety * Per patient history Plan: * Restarted home buspirone 10 mg p.o. twice daily Hospital Maintenance: DVT ppx: SCDs Diet: Pending swallow screen IV lines: Peripheral IVs Code status: Full code Dispo: Telemetry monitoring floor, cardiology consulted, nephrology consulted, restarted home Keppra and dual antiplatelet therapy. Patient was seen and discussed with my attending physician Dr. Dr. Minna TEMPLE and my senior resident Dr. Ray RODRIGUEZ PGY-2. Pete Woodruff DO PGY-1.
--- NOTE | 2025-08-15 06:00 | PD.RESHP ---
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 The patient was in the ED on 08/13/2025 after an episode of syncope. The evening of 08/14/2025 the patient was using the toilet not bearing down and experienced an episode of incident of dizziness and what she described as a feeling of immediate weakness. She denied trauma or losing consciousness. She was found to be hypotensive with a BP of 93/63 and have an EKG that showed a sinus rhythm with a rate of 71 and a QTc of 456. Patient was admitted for syncopal episode. ED Course: Significant vitals on arrival: BP 92/63, remainder vitals within normal parameters Significant labs: WBC 11.6, hemoglobin 9.9, BUN 37, creatinine 4.9, alk phos 130 Imaging: Face CT was negative for any acute fractures, head CT negative for any acute hemorrhage or mass effect, EKG showed a sinus rhythm with a rate of 71 and a QTc of 456. Urine: 0.5, 2+ protein, 1+ glucose ED intervention: Patient was given 1 g Keppra. History: Past medical history: As above in HPI Surgical history: Triple coronary bypass in March 2024, pacemaker implantation early 2024, 3 C-sections, cholecystectomy Social history: Lives at home with , denies alcohol or tobacco use Allergies: No known drug allergies. Home Medications: (Pending Med Rec) Cetirizine 10 mg daily Alprazolam 0.25 mg p.o. as needed Aspirin 81 mg daily Atorvastatin 40 mg nightly Plavix 75 mg nightly Labetalol 50 mg p.o. daily as needed Keppra 1 g daily at bedtime Keppra 750 mg p.o. twice daily Meclizine 25 mg p.o. as needed Midodrine 10 mg p.o. 3 times daily as needed Pantoprazole 40 mg p.o. nightly Ropinirole 0.25 mg p.o. nightly Sevelamer 800 mg p.o. 3 times daily Tradjenta 5 mg p.o. nightly Valsartan 40 mg p.o. as needed for SBP over 140 CODE STATUS: Full Code Review of Systems Review of Systems Narrative Review of Systems: Review of Systems: General: Denies fevers, chills. HEENT: Denies headache, congestion, or sore throat. Cardiac: Denies chest pain or palpitations. Pulmonary: Denies shortness of breath or cough. GI: Denies nausea, vomiting, diarrhea, constipation, melena, or hematochezia. : Denies dysuria, hematuria, frequency, or urgency. MSK: Denies pain in the extremities, joints, or myalgias. Denies trauma after episode of sudden weakness. Neuro: 1 episode of what the patient described as sudden weakness the evening before presentation. Denies vision changes, or speech difficulty. Exam Vital Signs Temp Pulse Resp BP Pulse Ox O2 Del Method 98.2 F 72 16 110/68 96 Room Air 08/15/25 02:35 08/15/25 02:35 08/15/25 02:35 08/15/25 02:35 08/15/25 02:35 08/15/25 02:35 Narrative Exam General: Awake and in no acute distress. Conversational and non-toxic appearing. Neurologic: GCS 15. Alert and oriented x3, no gross neurological deficit, and patient able to move all 4 extremities. HEENT: Ecchymoses across the nasal bridge and below the patient's eyes bilaterally. Normocephalic, atraumatic, mucous membranes moist. Pupils reactive to light. Heart: Regular rate and rhythm, normal S1 and S2, no murmurs. Lungs: Clear to auscultation bilaterally with no wheezing or crackles. Abdomen: Soft, nondistended, nontender, positive bowel sounds. No guarding or rebound tenderness. Extremities: No edema. 2+ radial and dorsalis pedis pulses bilaterally. Skin: Warm. Dry. No rash or ecchymoses. Results: Labs 08/14/25 23:25 08/14/25 23:25 Labs: Short CBC 08/14/25 Range/Units 23:25 WBC 11.6 H (3.6-11.0) Thou/mm3 Hgb 9.9 L (12.0-16.0) g/dL Hct 31.6 L (36.0-46.0) % Plt Count 258 (140-440) Thou/mm3 BMP 08/14/25 23:25 Sodium 141 Potassium 4.1 D Chloride 103 Carbon Dioxide 26.7 BUN 37 H Creatinine 4.9 H* Glucose 164 H Calcium 8.8 Cardiac Enzymes 08/14/25 08/15/25 Range/Units 23:25 02:27 Troponin I < 0.020 < 0.020 (0.0-0.045) ng/mL Liver Function 08/14/25 Range/Units 23:25 Total Bilirubin 0.2 L (0.3-1.2) mg/dL AST 14 (0-34) U/L ALT 11 (10-49) U/L Alkaline Phosphatase 130 H (46-116) U/L Albumin 3.8 D (3.4-4.8) gm/dL Urine 08/15/25 Range/Units 01:39 Urine Color Lt-Yellow (Lt Yel-Yel) Urine Clarity Clear (Clear/Hazy) Urine pH 7.5 H (5.0-7.0) Ur Specific [place] 1.011 (1.001-1.035) Urine Protein 2+ A (Neg - Trace) Urine Glucose (UA) 1+ A (Negative) Quality Measures Quality Measures none Advance care planning discussed with:: patient Medications Home Medications and Allergies Home Medications ?Medication ?Instructions ?Recorded ?Confirmed ?Type aspirin 81 mg tablet,delayed 81 mg PO HS 11/28/24 06/25/25 History release (Adult Low Dose Aspirin) atorvastatin 40 mg tablet 40 mg PO HS 11/28/24 06/25/25 History clopidogrel 75 mg tablet 75 mg PO HS 11/28/24 06/25/25 History duloxetine 30 mg capsule,delayed 30 mg PO BID 11/28/24 06/25/25 History release (Cymbalta) linagliptin 5 mg tablet (Tradjenta) 5 mg PO HS 11/28/24 06/25/25 History ascorbate calcium (vitamin C) 500 1 g PO HS 12/01/24 06/25/25 History mg tablet meclizine 25 mg tablet 25 mg PO PRN PRN dizziness 01/08/25 06/25/25 History alprazolam 1 mg tablet 0.25 mg PO PRN PRN anxiety 02/19/25 06/25/25 History cetirizine 10 mg capsule (All Day 10 mg PO QDAY 02/19/25 06/25/25 History Allergy (cetirizine)) metoclopramide HCl 10 mg tablet 10 mg PO Q4H PRN nausea 02/19/25 06/25/25 History (Reglan) pantoprazole 40 mg tablet,delayed 40 mg PO HS 02/19/25 06/25/25 History release sevelamer carbonate 800 mg tablet 800 mg PO TID 02/19/25 06/25/25 History (Renvela) docusate sodium 100 mg capsule 100 mg PO BID 05/28/25 06/25/25 History labetalol 100 mg tablet 50 mg PO DAILY PRN blood pressure 05/28/25 06/25/25 History levetiracetam 500 mg 1,000 mg PO .PM 05/28/25 06/25/25 History tablet,extended release 24 hr midodrine 5 mg tablet 10 mg PO TID PRN low blood pressure 05/28/25 06/25/25 History ropinirole 0.25 mg tablet 0.25 mg PO HS 05/28/25 06/25/25 History Allergies Allergy/AdvReac Type Severity Reaction Status Date / Time No Known Allergies Allergy Verified 06/24/25 12:31 Visit Medications Acetaminophen (Acetaminophen 325 Mg Tablet) 650 mg PO Q6H PRN PRN Reason: Fever >100.4 Stop: 09/14/25 05:29 Discontinued Medications Levetiracetam (Levetiracetam Inj 100 Mg/Ml Vial 5ml) 1,000 mg IVP X1 ONE Stop: 08/14/25 23:04 Last Admin: 08/14/25 23:22 Dose: 1,000 mg Assessment & Plan Plan Summary: 65-year-old female past medical history of ESRD on dialysis 3 times a week, status post triple coronary artery bypass graft March 2024, pacemaker implantation for symptomatic bradycardia early 2024, seizures, labial blood pressure (hypertension and hypotension), CVA, hypercholesterolemia, anxiety, and recreational drug use presented to the ED 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 The patient was in the ED on 08/13/2025 after an episode of syncope. She was found to be hypotensive with a BP of 93/63 and have an EKG that showed a sinus rhythm with a rate of 71 and a QTc of 456. Patient was admitted for syncopal episode. #Syncopal Episode Patient presented after syncopal episode, she was on the toilet not bearing down, no Valsalva maneuver Patient denied loss of consciousness, described as a sudden onset of generalized weakness Patient was in the ED approximately 48 hours before after a separate episode of syncope Head CT and facial CT negative EKG showed a sinus rhythm with a rate of 71 and a QTc of 456 Differentials include: Undiscovered underlying arrhythmia Hypotension Seizure Plan: Telemetry monitoring floor Cardiology consulted Seizure precautions Orthostatic vitals pending #ESRD on dialysis Monday Patient's first syncopal episode this week was after dialysis session on 08/13/2025 Patient presented with BUN 37, creatinine 4.9 Patient still produces urine Plan: Nephrology consulted Strict ins and outs Avoid nephrotoxic agents Renally dose medications #A-fib Per patient history EKG showed no evidence of A-fib on arrival Per medication review patient does not appear to be on anticoagulation Plan: Pending cardiology consult Consider starting anticoagulation #Labile blood pressure Patient manages blood pressure at home with as needed midodrine, valsartan, labetalol Blood pressure appropriate on admission Plan: Treat hypertension or hypotension as needed #Seizure disorder Per patient history Plan: Restarted home Keppra 750 mg p.o. twice daily #Coronary artery disease status post triple bypass surgery in March 2024 Patient takes aspirin and Plavix at home EKG showed no evidence of acute ST segment changes Patient endorsed no chest pain, palpitations, shortness of breath Tropes negative Plan: Aspirin 81 mg daily Plavix 75 mg daily #Symptomatic bradycardia status post pacemaker placement early 2024 Per patient history Plan: Pending review of pacemaker interrogation report #Restless leg syndrome Per patient history Plan: Resumed home ropinirole 0.5 mg p.o. twice daily #Anxiety Per patient history Plan: Restarted home buspirone 10 mg p.o. twice daily Hospital Maintenance: DVT ppx: SCDs Diet: Pending swallow screen IV lines: Peripheral IVs Code status: Full code Dispo: Telemetry monitoring floor, cardiology consulted, nephrology consulted, restarted home Keppra and dual antiplatelet therapy. Patient was seen and discussed with my attending physician Dr. Dr. Minna TEMPLE and my senior resident Dr. Ray RODRIGUEZ PGY-2. Pete Woodruff DO PGY-1.
--- NOTE | 2025-08-15 06:20 | EKG_ITS ---
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[id number] Requested By: Koffi Bell Order Number: [id number] Reading MD: Koffi Bell Measurements Intervals [place] Rate: 75 P: 59 ME: 166 QRS: -16 QRSD: 97 T: 71 QT: 407 QTc: 456 Interpretive Statements SINUS RHYTHM MODERATE VOLTAGE CRITERIA FOR LVH, CONSIDER NORMAL VARIANT [MEETS CRITERIA IN ONE OF: R(aVL), S(V1), R(V5), R(V5/V6)+S(V1)] MODERATE T-WAVE ABNORMALITY, CONSIDER LATERAL ISCHEMIA [-0.1+ mV T-WAVE IN I/aVL/V5/V6] Compared to ECG 08/14/2025 23:34:25 T-wave abnormality now present Possible ischemia now present ST (T wave) deviation no longer present /store/S0/[id number].pdf
[2025-08-15 07:15] LABS: Lactate (Lactic Acid) 1.1 mMol/L (0.4-2.0)
--- NOTE | 2025-08-15 08:27 | PC.NURSE ---
patient taken to dialysis at this time
[2025-08-15] MEDS: HEPARIN SOD INJ 1000 UNIT/ML VIAL 10 ML 3300 UNIT INDWELLCAT (10:31)
--- NOTE | 2025-08-15 11:15 | PC.NURSE ---
gave report to binta escoto via telephone. spoke with dialysis nurse michi stated she will take patient upstairs to admit room after
[2025-08-15] MEDS: HYDROcodone/APAP 5/325 TABLET 1 TAB PO (11:18)
[2025-08-15] MEDS: DULoxetine HCL 30 MG CAPSULE PO ×2 (12:36→20:28)
[2025-08-15] MEDS: ASPIRIN EC 81 MG TABEC PO (12:36)
[2025-08-15] MEDS: CLOPIDOGREL BISULFATE 75 MG TABLET PO (12:36)
[2025-08-15] MEDS: VIT B12/Vit C/FA (Nephrovite) TABLET 1 TAB PO (12:36)
--- NOTE | 2025-08-15 14:47 | ESPR_ITS ---
<Statement entered by Eric Kaur MD - 08/15/25 23:13> I saw and examined patient personally and supervised PGY 1 resident, Dr. Villagran with formulating a management plan. I agree with the documentation with the exceptions as listed below. Patient was admitted for generalized weakness for past 24 hours after sustaining a ground-level fall on 08/13. CT head and face were negative for acute hemorrhage, mass effect, midline shift or acute fracture. Orthostatic vitals were positive and CARLOS ENRIQUE hose was ordered. Pacemaker was also interrogated and cardiology consulted for further recommendations. Nephrology, Dr Awad was also consulted for hemodialysis. Physical therapy evaluation was also ordered due to history of fall. Anticipate discharge within next 24 to 48 hours. Plan of care discussed with Attending Dr. Noah Kaur MD PGY 2 Disclaimer: This note was dictated by speech recognition. Minor errors in talent development specialist may be present due to voice recognition software. Documentation for date of: 08/15/25 Subjective Subjective Interval history: Patient seen and examined at bedside; no acute events overnight. Orthostatic vitals positive (138/78 lying down, 83/51 standing). Exam Vital Signs Temp Pulse Resp BP Pulse Ox O2 Del Method 97.1 F 77 13 115/81 92 L Room Air 08/15/25 12:12 08/15/25 12:12 08/15/25 12:12 08/15/25 12:12 08/15/25 12:12 08/15/25 12:12 Narrative Exam General: Awake and in no acute distress. Conversational and non-toxic appearing. Neurologic: GCS 15. Alert and oriented x3, no gross neurological deficit, and patient able to move all 4 extremities. HEENT: Ecchymoses across the nasal bridge and surrouindg the patient's eyes bilaterally; no issues with vision. Normocephalic, atraumatic, mucous membranes moist. Pupils reactive to light. Heart: Regular rate and rhythm, normal S1 and S2, no murmurs. Lungs: Clear to auscultation bilaterally with no wheezing or crackles. Abdomen: Soft, nondistended, nontender, positive bowel sounds. No guarding or rebound tenderness. Extremities: No edema. 2+ radial and dorsalis pedis pulses bilaterally. Skin: Warm. Dry. No rash or ecchymoses. Objective Labs 08/14/25 23:25 08/14/25 23:25 Labs: Laboratory Results - last 24 hr 08/14/25 08/15/25 08/15/25 23:25 01:39 02:27 WBC 11.6 H RBC 3.15 L Hgb 9.9 L Hct 31.6 L MCV 100 MCH 31.4 MCHC 31.3 RDW Std Deviation 60.2 H Plt Count 258 Neut % (Auto) 67 Lymph % (Auto) 18 [place] % (Auto) 11 Eos % (Auto) 3 Baso % (Auto) 1 Neut # (Auto) 7.8 H Lymph # (Auto) 2.1 [place] # (Auto) 1.3 H Eos # (Auto) 0.4 Baso # (Auto) 0.1 Immature Gran # (Auto) 0.06 H Absolute Nucleated RBC 0.00 Immature Gran % 1 H Nucleated RBC % 0 PT 10.3 INR 1.0 Sodium 141 Potassium 4.1 D Chloride 103 Carbon Dioxide 26.7 Anion Gap 11 BUN 37 H Creatinine 4.9 H* Estim Creat Clear Calc 10.7 L eGFR 9 L* BUN/Creatinine Ratio 8 L Glucose 164 H Calculated Osmolality 293 Lactic Acid Calcium 8.8 Corrected Calcium 9.0 Total Bilirubin 0.2 L AST 14 ALT 11 Alkaline Phosphatase 130 H Troponin I < 0.020 < 0.020 Total Protein 6.3 Albumin 3.8 D Globulin 2.5 Albumin/Globulin Ratio 1.5 TSH 1.20 Free T4 1.06 Ur Collection Type Clean Catch Urine Color Lt-Yellow Urine Clarity Clear Urine pH 7.5 H Ur Specific [place] 1.011 Urine Protein 2+ A Urine Glucose (UA) 1+ A Urine Ketones Negative Urine Blood Negative Urine Nitrite Negative Urine Bilirubin Negative Urine Urobilinogen (Auto) Negative Ur Leukocyte Esterase Negative Urine RBC < 1 Urine WBC 1 Ur Squamous Epith Cells < 1 Urine Bacteria None Ur Culture Indicated? Not Indicated 08/15/25 07:09 WBC RBC Hgb Hct MCV MCH MCHC RDW Std Deviation Plt Count Neut % (Auto) Lymph % (Auto) [place] % (Auto) Eos % (Auto) Baso % (Auto) Neut # (Auto) Lymph # (Auto) [place] # (Auto) Eos # (Auto) Baso # (Auto) Immature Gran # (Auto) Absolute Nucleated RBC Immature Gran % Nucleated RBC % PT INR Sodium Potassium Chloride Carbon Dioxide Anion Gap BUN Creatinine Estim Creat Clear Calc eGFR BUN/Creatinine Ratio Glucose Calculated Osmolality Lactic Acid 1.1 Calcium Corrected Calcium Total Bilirubin AST ALT Alkaline Phosphatase Troponin I Total Protein Albumin Globulin Albumin/Globulin Ratio TSH Free T4 Ur Collection Type Urine Color Urine Clarity Urine pH Ur Specific [place] Urine Protein Urine Glucose (UA) Urine Ketones Urine Blood Urine Nitrite Urine Bilirubin Urine Urobilinogen (Auto) Ur Leukocyte Esterase Urine RBC Urine WBC Ur Squamous Epith Cells Urine Bacteria Ur Culture Indicated? Quality Measures Quality Measures none Advance care planning discussed with:: other Assessment & Plan Assessment Current Active Medications: Generic Name Dose Route Start Last Admin Trade Name Freq PRN Reason Stop Dose Admin Acetaminophen 650 mg 08/15/25 11:03 Acetaminophen 325 Mg Tablet PO 09/14/25 05:29 Q6H PRN Fever >100.4 or pain 1-3 Hydrocodone Bitart/Acetaminophen 1 tab 08/15/25 11:02 08/15/25 11:18 Hydrocodone/Apap 5/325 Tablet PO 08/20/25 11:01 1 tab Q6HR PRN Administration PAIN SCALE 4-10(Mod-Sev Aspirin 81 mg 08/15/25 09:00 08/15/25 12:36 Aspirin Ec 81 Mg Tabec PO 09/14/25 08:59 81 mg QDAY ALEX Administration Buspirone HCl 10 mg 08/15/25 09:00 08/15/25 12:36 Buspirone Hcl 5 Mg Tablet PO 09/14/25 08:59 10 mg BID ALEX Administration Clopidogrel Bisulfate 75 mg 08/15/25 09:00 08/15/25 12:36 Clopidogrel Bisulfate 75 Mg Tablet PO 09/14/25 08:59 75 mg QDAY ALEX Administration Duloxetine HCl 30 mg 08/15/25 09:00 08/15/25 12:36 Duloxetine Hcl 30 Mg Capsule PO 09/14/25 08:59 30 mg BID ALEX Administration Heparin Sodium (Porcine) 3,300 unit 08/15/25 10:29 08/15/25 10:31 Heparin Sod Inj 1000 Unit/Ml Vial 10 Ml INDWELLCAT 08/29/25 10:28 3,300 unit X1 PRN Administration DIALYSIS Levetiracetam 750 mg 08/15/25 09:00 08/15/25 12:36 Levetiracetam 250 Mg Tablet PO 09/14/25 08:59 750 mg BID ALEX Administration Metoclopramide HCl 2.5 mg 08/15/25 06:22 Metoclopramide Inj 5 Mg/Ml Vial 2 Ml IVP 09/14/25 06:29 Q8HR PRN nausea or vomiting Protocol Midodrine 10 mg 08/15/25 13:41 Midodrine 5 Mg Tablet PO 09/14/25 13:59 TID PRN Blood Pressure -hold BP=>120 Ropinirole HCl 0.5 mg 08/15/25 09:00 08/15/25 12:36 Ropinirole Hcl 0.25 Mg Tablet PO 09/14/25 08:59 0.5 mg BID ALEX Administration Vitamin B Complex/Vit C/Folic Acid 1 tab 08/15/25 09:00 08/15/25 12:36 Vit B12/Vit C/Fa (Nephrovite) Tablet PO 09/14/25 08:59 1 tab QDAY ALEX Administration Plan Patient is a 65-year-old female PMH of ESRD on dialysis, CAD post triple CABG, symptomatic bradycardia with pacemaker, seizures, labile blood pressure, CVA, HLD, anxiety, and recreational drug use presented 08/15/25 with chief complaint of weakness. Previous recent ED visit on 08/13/25 after an episode of syncope. patient admitted for syncope and weakness workup. #Syncopal episode secondary to #Orthostatic hypotension and #ESRD causing #Labile BP and #Labile fluid status #?Polypharmacy Patient had syncopal episode on 08/13/25, resulting in ground-level fall. Orthostatic vitals positive on 08/15/25 (138/78 lying down, 83/51 standing). Gets dialysis M/W/F Patient takes midorine, valsartan, labelalol as needed for BP. Plan: Resume dialysis Monitor volume status Treat BP as needed Do medication reconciliation for potential agents causing hypotension #CAD post-triple bypass 04/20 #A-fib #Bradycardia with pacemaker Plan: Aspirin 81 qd Plavix 75 qd Cardiology consulted, appreciate recs #Seizure disorder Plan: Keppra 750 BID #Restless leg syndrome Plan: Ropinirole 0.5 BID #Anxiety Plan: Busprione 10 BID Disposition: Tele DVT prophylaxis:SCD GI prophylaxis: Diet: Renal Lines: PIV, dialysis catether CODE STATUS: Full This case was discussed with my attending physician, Dr. Zamora, and senior resident, Dr. Kaur. Gonzalez Villagran, PGY1 Attending Provider Attestation/Addendum I have seen and examined the patient. I was physically present for the [place] portions of the services provided including history, physical exam, diagnosis, treatment plans and orders. I agree with assessment and plan of care as documented by residents. Even though this this note was carefully revised there may still be minor errors in talent development specialist due to voice recognition software. Renata Zamora MD
--- NOTE | 2025-08-15 15:32 | ESCONSULT_ITS ---
<Statement entered by Campbell Gonzalez MD - 08/16/25 01:12> Patient was seen and examined by me personally. I have reviewed the below documentation by the team resident Dr Jazlyn White DO PGY-1 and agree with its findings. Ms. Carmona is a 65-year-old female with past medical history of ESRD on HD M/W/F follows Dr. Awad, CAD status post CABG November 2023, hypertension, hyperlipidemia, status post pacemaker placed in 2024 for symptomatic AV block- [employer] (Dr Mehta), PRES, CVA, type 2 diabetes mellitus, history of gastric sleeve operation, diabetic gastroparesis, seizure disorder on Keppra, restless leg syndrome, anxiety, and recurrent UTIs who presented to [facility] emergency department on 08/15/2025 with a chief complaint of repeated syncopal episodes. Patient admitted for further workup. EKG 08/14 shows sinus rhythm -Will review pacemaker interrogation report to assess pacemaker function -Orthostatic vital 08/15 orthostatic lying BP 138/78 HR 73, sitting BP 87/64 HR 84, standing 83/51, HR 81?orthostatic positive, likely etiology. -Troponin 08/15 negative, denies any chest pain no acute ST-T changes. -Echocardiogram obtained recently 06/25/2025 shows 1. Left ventricle size is normal and systolic function is normal. Visually estimated ejection fraction is 55-60%. There is grade I diastolic dysfunction.There is moderate concentric hypertrophy noted. 2. Right ventricle size is normal and systolic function is normal. Estimated RVSP is 21 mmHg. 3. There is mild aortic valve sclerosis with no stenosis and no regurgitation. 4. There is mild tricuspid valve regurgitation. 5. Normal IVC with estimated RA pressure 8 mmHg. - CHELSY 06/30/2025 obtained to rule out endocarditis shows: 1. No clear evidence of any valvular vegetation or any vegetations on the pacemaker leads. No endocarditis. 2. Bubble study negative for PFO and ASD. No LA or JESSICA thrombus. 3. Normal LV size and function with an EF of around 60 to 65%. 4. Normal RV size and function. 5. Trace MR, TR and PI. No pericardial effusion. Thank you for the consult and allowing to participate in the care of the patient. Cardiology will continue to follow. Case discussed with Attending Physician Dr. Zaheergonzalo Gonzalez MD Internal Medicine PGY-2 Disclaimer: This note was dictated by speech recognition. Minor errors in customer resolution specialist may be present due to voice recognition software. HPI Data of Consult Requesting Physician: yBron Buitrago DO Admitting Provider: Byron Biutrago DO Attending Provider: Byron Buitrago DO Primary Care Provider: Catalina Angulo PA-C([facility] Consult Narrative History of present illness: History of Present Illness: Ms. Edita Carmona is 65yF with PMH of ESRD on dialysis 3 times a week, status post triple coronary artery bypass graft March 2024, pacemaker implantation for symptomatic bradycardia early 2024, seizures, labial blood pressure (hypertension and hypotension), CVA, hypercholesterolemia, anxiety, and recreational drug use, presented to [facility] ED on 08/15/2025 due to repeated episode of syncope. 2 days ago (08/13/2025) because she had an episode of syncope where she fell down onto her face. She was discharged from ED and received a dialysis session, but on the evening of 08/14, she again had episode of dizziness and acute weakness while on toilet, but she didn't fell down or lost consciousness. Patient was admitted and consulted cardiology for further evaluation of syncope in the setting of s/p triple CABG in 2023 and s/p pacemaker placement in early 2024 in symptomatic bradycardia ED course: Vitals: Temp: 98.8F, OH:76, RR:18, BP:93/63, O2sat: 97% on RA Labs: WBC 11.6, Hgb: 9.9, BUN:37, Cr:4.9, eGFR: 9, Glucose: [address] (08/14/2025): Negative for acute hemorrhage, mass effect or midline shift In ED patient was given Keppra 1000mg IV x1 Medical history: As stated above Surgical history: Triple coronary bypass in March 2024, pacemaker implantation early 2024, 3 C-sections, cholecystectomy Allergies: NKDA Medications: Cetirizine 10 mg daily, Alprazolam 0.25 mg p.o. as needed, Aspirin 81 mg daily Atorvastatin 40 mg nightly, Plavix 75 mg nightly, Labetalol 50 mg p.o. daily as needed, Keppra 1 g daily at bedtime, Keppra 750 mg p.o. twice daily, Meclizine 25 mg p.o. as needed, Midodrine 10 mg p.o. 3 times daily as needed, Pantoprazole 40 mg p.o. nightly, Ropinirole 0.25 mg p.o. nightly, Sevelamer 800 mg p.o. 3 times daily, Tradjenta 5 mg p.o. nightly, Valsartan 40 mg p.o. as needed for SBP over 140 Family history: Noncontributory Social history: Denies smoking cigarettes, drinking alcohol or using other illicit drugs 08/15/2025: Labs reviewed and patient examined at the bedside. Patient with syncope with pacemaker. Pacemaker interrogation results will be reviewd tomorrow. if no device related abnormalities, then alternative causes should be considered as a cause of her syncope including electolyte derangements and volume shifts secondary to dialysis. Denies chest pain, palpation, SOB, abdominal pain, N/V, fevers or chills. cc:: cc: Byron Buitrago, Review of Systems Review of Systems Narrative Review of Systems: All 12 systems assessed and the patient denies unless otherwise stated in HPI Exam Vital Signs Temp Pulse Resp BP Pulse Ox O2 Del Method 97.1 F 77 13 115/81 92 L Room Air 08/15/25 12:12 08/15/25 12:12 08/15/25 12:12 08/15/25 12:12 08/15/25 12:12 08/15/25 12:12 Narrative Exam General: No acute distress, well nourished, AAO x3 Eye: PERRL, EOMI, normal conjunctiva, no scleral icterus HENT: Normocephalic, hearing intact to conversation at normal volume, moist oral mucosa, Ecchymoses across the nasal bridge Neck: Supple, non-tender, no JVD, no lymphadenopathy Lungs: Non-labored respirations, symmetric chest rise, Clear to auscultate bilaterally, No wheezing, rhonchi, crackles Heart: Peripheral pulses intact bilaterally, Regular Rate and Rhythm. Abdomen: Soft, non-tender, non-distended, no palpable masses Musculoskeletal: Normal range of motion and strength, No cyanosis or edema, No visible joint swelling Skin: Skin is warm, dry, no rashes or lesions. Psychiatric: Cooperative, appropriate mood and affect, Awake and alert, not agitated Neuro: Cranial nerves II-XII grossly intact. Strength 5/5 throughout. Sensations intact to light touch. Results Labs 08/17/25 05:35 08/17/25 05:35 Labs: Short CBC 08/14/25 Range/Units 23:25 WBC 11.6 H (3.6-11.0) Thou/mm3 Hgb 9.9 L (12.0-16.0) g/dL Hct 31.6 L (36.0-46.0) % Plt Count 258 (140-440) Thou/mm3 BMP 08/14/25 23:25 Sodium 141 Potassium 4.1 D Chloride 103 Carbon Dioxide 26.7 BUN 37 H Creatinine 4.9 H* Glucose 164 H Calcium 8.8 Cardiac Enzymes 08/14/25 08/15/25 Range/Units 23:25 02:27 Troponin I < 0.020 < 0.020 (0.0-0.045) ng/mL Liver Function 08/14/25 Range/Units 23:25 Total Bilirubin 0.2 L (0.3-1.2) mg/dL AST 14 (0-34) U/L ALT 11 (10-49) U/L Alkaline Phosphatase 130 H (46-116) U/L Albumin 3.8 D (3.4-4.8) gm/dL Urine 08/15/25 Range/Units 01:39 Urine Color Lt-Yellow (Lt Yel-Yel) Urine Clarity Clear (Clear/Hazy) Urine pH 7.5 H (5.0-7.0) Ur Specific [place] 1.011 (1.001-1.035) Urine Protein 2+ A (Neg - Trace) Urine Glucose (UA) 1+ A (Negative) Quality Measures Quality Measures none Advance care planning discussed with:: patient and other Medications Home Medications and Allergies Home Medications ?Medication ?Instructions ?Recorded ?Confirmed ?Type aspirin 81 mg tablet,delayed 81 mg PO HS 11/28/2407/28 History release (Adult Low Dose Aspirin) atorvastatin 40 mg tablet 40 mg PO HS 11/28/24 5 History clopidogrel 75 mg tablet 75 mg PO HS 11/28/24 5 History duloxetine 30 mg capsule,delayed 30 mg PO BID 11/28/24 08/15/25 History release (Cymbalta) linagliptin 5 mg tablet (Tradjenta) 5 mg PO HS 5 08/15/25 History meclizine 25 mg tablet 25 mg PO PRN PRN dizziness 0 01/08/25 08/15/25 History cetirizine 10 mg capsule (All Day 10 mg PO QDAY 08/15/25 History Allergy (cetirizine)) metoclopramide HCl 10 mg tablet 10 mg PO Q8H PRN nause a 02/19/25 08/15/25 History (Reglan) sevelamer carbonate 800 mg tablet 800 mg PO TID 08/15/25 History (Renvela) docusate sodium 100 mg capsule 100 mg PO BID 05/28/25 08/15/25 History labetalol 100 mg tablet 50 mg PO DAILY blood pressur e 05/28/25 08/15/25 History midodrine 5 mg tablet 10 mg PO TID PRN low blood p ressure 05/28/25 08/15/25 History ropinirole 0.25 mg tablet 0.25 mg PO BID 05/28/2507/28 History ascorbic acid (vitamin C) 500 mg 500 mg PO BID 5 08/15/25 History tablet (Vitamin C) buspirone 10 mg tablet 10 mg PO BID 08/15/25 History pantoprazole 40 mg tablet,delayed 40 mg PO BID 5 08/15/25 History release vitamin B comp no.3-folic acid 1 1 tab PO QDAY 5 08/15/25 History mg-vit C 60 mg-biotin 300 mcg tablet ([facility]) Allergies Allergy/AdvReac Type Severity Reaction Status Date / Time No Known Allergies Allergy Verified 06/24/25 12:31 Visit Medications Acetaminophen (Acetaminophen 325 Mg Tablet) 650 mg PO Q6H PRN PRN Reason: Fever >100.4 or pain 1-3 Stop: 09/14/25 05:29 Hydrocodone Bitart/Acetaminophen (Hydrocodone/Apap 5/325 Tablet) 1 tab PO Q6HR PRN PRN Reason: PAIN SCALE 4-10(Mod-Sev Stop: 08/20/25 11:01 Last Admin: 08/15/25 11:18 Dose: 1 tab Aspirin (Aspirin Ec 81 Mg Tabec) 81 mg PO QDAY [facility] Stop: 09/14/25 08:59 Last Admin: 08/15/25 12:36 Dose: 81 mg Buspirone HCl (Buspirone Hcl 5 Mg Tablet) 10 mg PO BID [facility] Stop: 09/14/25 08:59 Last Admin: 08/15/25 12:36 Dose: 10 mg Clopidogrel Bisulfate (Clopidogrel Bisulfate 75 Mg Tablet) 75 mg PO QDAY [facility] Stop: 09/14/25 08:59 Last Admin: 08/15/25 12:36 Dose: 75 mg Duloxetine HCl (Duloxetine Hcl 30 Mg Capsule) 30 mg PO BID [facility] Stop: 09/14/25 08:59 Last Admin: 08/15/25 12:36 Dose: 30 mg Heparin Sodium (Porcine) (Heparin Sod Inj 1000 Unit/Ml Vial 10 Ml) 3,300 unit INDWELLCAT X1 PRN PRN Reason: DIALYSIS Stop: 08/29/25 10:28 Last Admin: 08/15/25 10:31 Dose: 3,300 unit Levetiracetam (Levetiracetam 250 Mg Tablet) 750 mg PO BID [facility] Stop: 09/14/25 08:59 Last Admin: 08/15/25 12:36 Dose: 750 mg Metoclopramide HCl (Metoclopramide Inj 5 Mg/Ml Vial 2 Ml) 2.5 mg IVP Q8HR PRN; Protocol PRN Reason: nausea or vomiting Stop: 09/14/25 06:29 Midodrine (Midodrine 5 Mg Tablet) 10 mg PO TID PRN PRN Reason: Blood Pressure -hold BP=>120 Stop: 09/14/25 13:59 Ropinirole HCl (Ropinirole Hcl 0.25 Mg Tablet) 0.5 mg PO BID [facility] Stop: 09/14/25 08:59 Last Admin: 08/15/25 12:36 Dose: 0.5 mg Vitamin B Complex/Vit C/Folic Acid (Vit B12/Vit C/Fa (Nephrovite) Tablet) 1 tab PO QDAY [facility] Stop: 09/14/25 08:59 Last Admin: 08/15/25 12:36 Dose: 1 tab Discontinued Medications Acetaminophen (Acetaminophen 325 Mg Tablet) 650 mg PO Q6H PRN PRN Reason: Fever >100.4 Stop: 09/14/25 05:29 Levetiracetam (Levetiracetam Inj 100 Mg/Ml Vial 5ml) 1,000 mg IVP X1 ONE Stop: 08/14/25 23:04 Last Admin: 08/14/25 23:22 Dose: 1,000 mg Midodrine (Midodrine 5 Mg Tablet) 10 mg PO TID PRN PRN Reason: Blood Pressure - High Stop: 09/14/25 13:59 Assessment & Plan Plan Ms. Edita Carmona is 65yF with PMH of AV block, ESRD on dialysis 3 times a week, status post triple coronary artery bypass graft March 2024, pacemaker implantation for symptomatic bradycardia early 2024, seizures, labial blood pressure (hypertension and hypotension), CVA, hypercholesterolemia, anxiety, and recreational drug use, presented to the ED on 08/15/2025 due to repeated episode of syncope. Patient was admitted and consulted cardiology for further evaluation of syncope in the setting of s/p triple CABG in 2023 and s/p pacemaker placement in early 2024 in symptomatic bradycardia #Syncopal episodes #s/p Pacemaker-[employer] placement in Sep 2024 #Hx of AV block -Two episodes of syncopal episodes prior to admission -EKG showing NSR. -Head CT (08/14/2025): Negative for acute hemorrhage, mass effect or midline shift -Pacemaker was placed on Sep [address] Allred in [place] due to symptomatic bradycardia with AV block. -Orthostatic hypotension positive Plan: -Review Pacemaker interrogation result and plan accordingly. -Continue tle monitoring on follor -Mg>2, K>4 - Orthostatic hypotension (OH) treatment focuses on?lifestyle changes like increasing fluids/salt, slow position changes, compression garments, and avoiding triggers (alcohol, large meals, heat), with medications like midodrine used if needed, plus addressing underlying causes, aiming to improve quality of life by reducing dizziness and fainting.?? #Hx of CAD s/p CABD in May 29- -On aspirin and plavix. #ESRD on dialysis MWF #Seizure disorder #Restless leg syndrome #Anxiety -Management per Primary Hospitalist team Thank you for allowing us to participate in the care of your patient. Assessment and plan discussed with my attending physician Dr. Marks and Dr. Gonzalez (PGY-2) Dr. White (PGY-1) - Internal medicine resident Attending Provider Attestation/Addendum I have personally seen and examined the patient separately on the above date of service and discussed the plan of care with the resident. I reviewed the resident Dr. Jazlyn White / Campbell Gonzalez consultation progress note and agree with the resident findings and plan in the note above and have also edited the documentation to reflect my findings and plan. Zaheer Marks M.D. Interventional Cardiology
[2025-08-16] VITALS (8 sets, daily range): BP systolic 100–138; BP diastolic 61–88; PULSE 76–85; RESP 13–95; TEMP 35.9–36.7; O2SAT 93–98; BMI 25.8
--- NOTE | 2025-08-16 00:15 | ESCONSULT_ITS ---
RE: KAREN BARNES : 1960 DATE OF CONSULTATION: 08/15/2025 REASON FOR REFERRAL: ESRD management. REFERRING PHYSICIAN: Dr. Canchola HISTORY OF PRESENT ILLNESS: This patient is a 65-year-old woman with past medical history significant for type 2 diabetes with diabetic retinopathy, neuropathy, nephropathy, hypertension, CAD, status post CABG, third-degree AV block, status post pacemaker placement in 09/2024, and ESRD, on dialysis at the [facility], dialyzing Monday, Monday, Monday since 2021, who presented to emergency room 2 days in a row for weakness. The patient was seen yesterday in emergency room after she fell and sustained 2 black eyes after the fall while she was in the bathroom. She was discharged, had dialysis, and came back the next day with the same symptoms. The patient felt very weak again and was brought to the hospital for near syncopal episodes. One and a half months ago, the patient was also admitted for confusion and unresponsiveness. During that time, she was recommended to go to physical therapy; however, she opted to go back to home and recuperate at home. She said that while at home, she felt that she has been weaker almost all the time. When she presented to emergency room early this morning, the patient was noted with a blood pressure of 90/63. Lab test results showed WBC of 11,600, hemoglobin of 9.9, and platelet count of 258,000. Her potassium is normal at 4.1, CO2 is 26.7, sodium of 141. The patient also had dialysis early today and about 1.2 liters of fluid was removed. She tolerated her dialysis. Blood pressure at the end of dialysis was noted at 117/80. PAST MEDICAL HISTORY: CAD; CABG in 2023; pacemaker placement in 2024; history of CVA with no residual weakness; type 2 diabetes with neuropathy, retinopathy, and nephropathy; history of hypotension secondary to autonomic neuropathy with alternating hypertension; PRES syndrome; seizure disorder; and history of gastroparesis. PAST SURGICAL HISTORY: PD catheter placement and removal, pacemaker placement, CABG, pacemaker placement and section. FAMILY HISTORY: Father has diabetes, hypertension, and ESRD. ALLERGIES: NO KNOWN DRUG ALLERGIES. CURRENT MEDICATIONS: 1. Acetaminophen. 2. Aspirin. 3. BuSpar 10 mg b.i.d. 4. Plavix 75 mg p.o. daily. 5. Duloxetine 30 mg p.o. b.i.d. 6. Eden 1 tab p.o. q. 6 p.r.n. 7. Keppra 750 mg p.o. b.i.d. 8. Metoclopramide 2.5 mg IV q. 8. 9. Requip 0.5 mg p.o. b.i.d. 10. Sarahi-Sixto 1 tablet p.o. daily. PHYSICAL EXAMINATION: GENERAL: She is awake, alert, oriented. VITAL SIGNS: Blood pressure of 125/80, heart rate of 90, respiratory rate of 20, temperature 97.8, O2 sat 93% on room air. HEENT: Anicteric sclerae, normocephalic. NECK: Supple, JVD. CHEST AND LUNGS: Symmetrical expansion, clear breath sounds. CARDIAC: Without murmur. ABDOMEN: Soft and nontender. EXTREMITIES: No edema. LABORATORY DATA: Hemoglobin 9.9, WBC 11,600, platelet count 258,000. Sodium 141, potassium 4.1, chloride 103, CO2 26.7, BUN 37, creatinine 4.9, glucose 164, lactic acid 1.1, calcium 8.8, albumin 3.8. IMAGING DATA: Head CT negative for acute hemorrhage, mass, or midline shift. Face CT, no acute facial fracture. ASSESSMENT: 1. End-stage renal disease. 2. Mild hypotension. 3. Anemia of chronic disease. 4. History of type 2 diabetes with retinopathy, neuropathy, and nephropathy. 5. History of autonomic neuropathy. 6. Debilitation. 7. History of coronary artery bypass grafting. 8. History of pacemaker placement. 9. History of seizure disorder. PLAN: The patient seems stable now. Possibly, the patient is very debilitated due to previous hospitalization and may need rehab. I agree with monitoring her at telemetry given her history of third-degree AV block, status post pacemaker placement. The patient will be dialyzed on her dialysis days, i.e., Monday, Monday, Monday and as needed. Continue midodrine 10 mg t.i.d. as needed for blood pressure less than 120. DT: 23:33:33 TT: 00:14:00 Ref: [id number] - TID: [id number] MTDD
[2025-08-16 06:26] LABS: Basophils # (Auto) 0.1 Thou/mm3 (0.0-0.2); Basophils % (Auto) 1 % (0-2.5); Eosinophils # (Auto) 0.4 Thou/mm3 (0.0-0.5); Eosinophils % (Auto) 5 % (0-10); Hematocrit 31.7 % (36.0-46.0); Hemoglobin 10.2 g/dL (12.0-16.0); Immature Granulocytes Auto 0.06 Thou/mm3 (0.00-0.00); Lymphocytes # (Auto) 2.1 Thou/mm3 (1.0-4.8); Lymphocytes % (Auto) 27 % (10-50); Mean Corpuscular HGB Conc 32.2 g/dl (31.0-37.0); Mean Corpuscular Hemoglobin 31.8 pg (25.0-35.0); Mean Corpuscular Volume 99 fL (80-100); Monocytes # (Auto) 0.9 Thou/mm3 (0.0-0.8); Monocytes % (Auto) 11 % (0-12); Neutrophils # (Auto) 4.2 Thou/mm3 (1.8-7.7); Neutrophils % (Auto) 54 % (37-80); Nucleated Red Blood Cell # 0.00 Thou/mm3 (0.00-0.00); Nucleated Red Blood Cell % 0 /100 WBC (0); Platelet Count 241 Thou/mm3 (140-440); RDW Standard Deviation 56.5 fL (36.4-46.3); Red Blood Count 3.21 Miln/mm3 (4.00-5.20); White Blood Count 7.7 Thou/mm3 (3.6-11.0)
[2025-08-16 08:44] LABS: Alanine Aminotransferase 16 U/L (10-49); Albumin, Serum 4.0 gm/dL (3.4-4.8); Albumin/Globulin Ratio 1.6 (1.2-2.2); Alkaline Phosphatase 130 U/L (46-116); Anion Gap 17 (7-16); Aspartate Amino Transferase 26 U/L (0-34); BUN/Creatinine Ratio 7 Ratio (12-20); Bilirubin,Total 0.4 mg/dL (0.3-1.2); Blood Urea Nitrogen 30 mg/dL (9-23); Calcium 9.0 mg/dL (8.3-10.6); Calcium (Corrected) 9.0 mg/dL (8.5-10.1); Carbon Dioxide 23.9 mMol/L (20.0-31.0); Chloride 101 mMol/L (98-107); Creatinine (Component) 4.1 mg/dL (0.6-1.3); Estimated Creatinine Clearance 14.0 mL/min (>60); Globulin 2.5 gm/dL (2.3-3.5); Glucose 101 mg/dL (74-106); Magnesium 2.1 mg/dL (1.6-2.6); Osmolality,Calculated 289 (275-295); Potassium 4.4 mMol/L (3.4-5.1); Sodium 142 mMol/L (136-145); Total Protein 6.5 gm/dL (5.7-8.2); eGFR 11 See Note
[2025-08-16] MEDS: DULoxetine HCL 30 MG CAPSULE PO ×2 (08:58→20:12)
[2025-08-16] MEDS: CLOPIDOGREL BISULFATE 75 MG TABLET PO (08:58)
[2025-08-16] MEDS: ASPIRIN EC 81 MG TABEC PO (08:58)
[2025-08-16] MEDS: VIT B12/Vit C/FA (Nephrovite) TABLET 1 TAB PO (08:58)
--- NOTE | 2025-08-16 10:35 | PC.SS ---
This is 65-year-old, , female who presented to the ED due to suffering from weakness. Patient appeared alert and oriented to self, place and situation. Patient was able to verify her address and phone number. Patient reported that she was discharged on 07/03/2025 from [facility] to return home with [facility] health services. Patient reported that she resides at home with her spouse, Supa. Patient reported that prior to admission, she needs assistance with all ADLs. She has a FWW and rollator at home. Patient reported that in case of an emergency, she has assigned her daughter, Carmen Angulo, as her medical surrogate decision maker. Patient attends outpatient HD at [facility], her dialysis schedule is M, W, F at 1000 AM. Patient's PCP is Catalina Angulo at [facility]. Per Cramen, patient wants to go to [facility] due to being so weak at home. Patient has [employer] to cover her transportation to [facility].
--- NOTE | 2025-08-16 12:43 | ESPR_ITS ---
Documentation for date of: 08/16/25 Subjective Subjective Interval history: Patient seen and examined at bedside Currently has no complaints reports she is doing well Pacemaker interrogation report reviewed, normal function. No significant event noted at time of syncope. Patient is orthostatic positive, educated bedside on slow to rise, wearing compression stockings. Orthostatic hypotension (OH) treatment focuses on?lifestyle changes like increasing fluids/salt, slow position changes, compression garments, and avoiding triggers (alcohol, large meals, heat), with medications like midodrine used if needed, plus addressing underlying causes, aiming to improve quality of life by reducing dizziness and fainting.?? Patient is cleared from cardiology standpoint for discharge. Exam Vital Signs Temp Pulse Resp BP Pulse Ox O2 Del Method 97.3 F 78 14 111/63 93 L Room Air 08/16/25 08:00 08/16/25 08:00 08/16/25 08:00 08/16/25 08:00 08/16/25 08:00 08/16/25 08:00 Narrative Exam General: Awake and in no acute distress. Conversational and non-toxic appearing. Neurologic: GCS 15. Alert and oriented x3, no gross neurological deficit, and patient able to move all 4 extremities. HEENT: Ecchymoses across the nasal bridge and surrouindg the patient's eyes bilaterally; no issues with vision. Normocephalic, atraumatic, mucous membranes moist. Pupils reactive to light. Heart: Regular rate and rhythm, normal S1 and S2, no murmurs. Lungs: Clear to auscultation bilaterally with no wheezing or crackles. Abdomen: Soft, nondistended, nontender, positive bowel sounds. No guarding or rebound tenderness. Extremities: No edema. 2+ radial and dorsalis pedis pulses bilaterally. Skin: Warm. Dry. No rash or ecchymoses. Objective Labs 08/17/25 05:35 08/17/25 05:35 Labs: Laboratory Results - last 24 hr 08/16/25 05:10 WBC 7.7 RBC 3.21 L Hgb 10.2 L Hct 31.7 L MCV 99 MCH 31.8 MCHC 32.2 RDW Std Deviation 56.5 H Plt Count 241 Neut % (Auto) 54 Lymph % (Auto) 27 [place] % (Auto) 11 Eos % (Auto) 5 Baso % (Auto) 1 Neut # (Auto) 4.2 Lymph # (Auto) 2.1 [place] # (Auto) 0.9 H Eos # (Auto) 0.4 Baso # (Auto) 0.1 Immature Gran # (Auto) 0.06 H Absolute Nucleated RBC 0.00 Immature Gran % 1 H Nucleated RBC % 0 Sodium 142 Potassium 4.4 Chloride 101 Carbon Dioxide 23.9 Anion Gap 17 H BUN 30 H Creatinine 4.1 H* D Estim Creat Clear Calc 14.0 L eGFR 11 L* BUN/Creatinine Ratio 7 L Glucose 101 D Calculated Osmolality 289 Calcium 9.0 Corrected Calcium 9.0 Magnesium 2.1 Total Bilirubin 0.4 AST 26 ALT 16 Alkaline Phosphatase 130 H Total Protein 6.5 Albumin 4.0 Globulin 2.5 Albumin/Globulin Ratio 1.6 Quality Measures Quality Measures none Advance care planning discussed with:: patient Assessment & Plan Assessment Current Active Medications: Generic Name Dose Route Start Last Admin Trade Name Freq PRN Reason Stop Dose Admin Acetaminophen 650 mg 08/15/25 11:03 Acetaminophen 325 Mg Tablet PO 09/14/25 05:29 Q6H PRN Fever >100.4 or pain 1-3 Hydrocodone Bitart/Acetaminophen 1 tab 08/15/25 11:02 08/15/25 11:18 Hydrocodone/Apap 5/325 Tablet PO 08/20/25 11:01 1 tab Q6HR PRN Administration PAIN SCALE 4-10(Mod-Sev Aspirin 81 mg 08/15/25 09:00 08/16/25 08:58 Aspirin Ec 81 Mg Tabec PO 09/14/25 08:59 81 mg QDAY ALEX Administration Buspirone HCl 10 mg 08/15/25 09:00 08/16/25 08:57 Buspirone Hcl 5 Mg Tablet PO 09/14/25 08:59 10 mg BID ALEX Administration Clopidogrel Bisulfate 75 mg 08/15/25 09:00 08/16/25 08:58 Clopidogrel Bisulfate 75 Mg Tablet PO 09/14/25 08:59 75 mg QDAY ALEX Administration Duloxetine HCl 30 mg 08/15/25 09:00 08/16/25 08:58 Duloxetine Hcl 30 Mg Capsule PO 09/14/25 08:59 30 mg BID ALEX Administration Heparin Sodium (Porcine) 3,300 unit 08/15/25 10:29 08/15/25 10:31 Heparin Sod Inj 1000 Unit/Ml Vial 10 Ml INDWELLCAT 08/29/25 10:28 3,300 unit X1 PRN Administration DIALYSIS Levetiracetam 750 mg 08/15/25 09:00 08/16/25 08:57 Levetiracetam 250 Mg Tablet PO 09/14/25 08:59 750 mg BID ALEX Administration Metoclopramide HCl 2.5 mg 08/15/25 06:22 Metoclopramide Inj 5 Mg/Ml Vial 2 Ml IVP 09/14/25 06:29 Q8HR PRN nausea or vomiting Protocol Midodrine 10 mg 08/15/25 13:41 Midodrine 5 Mg Tablet PO 09/14/25 13:59 TID PRN Blood Pressure -hold BP=>120 Ropinirole HCl 0.5 mg 08/15/25 09:00 08/16/25 08:58 Ropinirole Hcl 0.25 Mg Tablet PO 09/14/25 08:59 0.5 mg BID ALEX Administration Vitamin B Complex/Vit C/Folic Acid 1 tab 08/15/25 09:00 08/16/25 08:58 Vit B12/Vit C/Fa (Nephrovite) Tablet PO 09/14/25 08:59 1 tab QDAY ALEX Administration Plan Ms. Carmona is a 65-year-old female with past medical history of ESRD on HD M/W/F follows Dr. Awad, CAD status post CABG November 2023, hypertension, hyperlipidemia, status post pacemaker placed in 2024 for symptomatic AV block- [employer] (Dr Mehta), PRES, CVA, type 2 diabetes mellitus, history of gastric sleeve operation, diabetic gastroparesis, seizure disorder on Keppra, restless leg syndrome, anxiety, and recurrent UTIs who presented to [facility] emergency department on 08/15/2025 with a chief complaint of repeated syncopal episodes. Patient admitted for further workup. #Syncopal episodes secondary to #Orthostatic hypotension, orthostatic positive #s/p Pacemaker-[employer] placement in Sep 2024, history of AV block Two episodes of syncopal episodes prior to admission Head CT (08/14/2025): Negative for acute hemorrhage, mass effect or midline shift EKG 08/14 shows sinus rhythm Troponin 08/15 negative, denies any chest pain no acute ST-T changes. Pacemaker was placed on Sep [address] Allred in [place] due to symptomatic bradycardia with AV block. Orthostatic vital 08/15 orthostatic lying BP 138/78 HR 73, sitting BP 87/64 HR 84, standing 83/51, HR 81?orthostatic positive, likely etiology. Pacemaker interrogation report reviewed, no significant electrical activity noted at the time of syncope -Echocardiogram obtained recently 06/25/2025 shows 1. Left ventricle size is normal and systolic function is normal. Visually estimated ejection fraction is 55-60%. There is grade I diastolic dysfunction.There is moderate concentric hypertrophy noted. 2. Right ventricle size is normal and systolic function is normal. Estimated RVSP is 21 mmHg. 3. There is mild aortic valve sclerosis with no stenosis and no regurgitation. 4. There is mild tricuspid valve regurgitation. 5. Normal IVC with estimated RA pressure 8 mmHg. - CHELSY 06/30/2025 obtained to rule out endocarditis shows: 1. No clear evidence of any valvular vegetation or any vegetations on the pacemaker leads. No endocarditis. 2. Bubble study negative for PFO and ASD. No LA or JESSICA thrombus. 3. Normal LV size and function with an EF of around 60 to 65%. 4. Normal RV size and function. 5. Trace MR, TR and PI. No pericardial effusion. Patient is orthostatic positive, educated bedside extensively. Orthostatic hypotension (OH) treatment focuses on?lifestyle changes like increasing fluids/salt, slow position changes, compression garments, and avoiding triggers (alcohol, large meals, heat), with medications like midodrine used if needed, plus addressing underlying causes, aiming to improve quality of life by reducing dizziness and fainting.?? Patient is cleared from cardiology standpoint for discharge. #CAD status post CABG November 2023 Patient does have a history of CAD status post CABG in May 2024 with an active cardiac catheterization after positive stress test which was done as part of the preoperative workup. - Continue aspirin and Plavix #Hypertension Patient does have a history of PRES Patient on labetalol 50 mg p.o. daily Monitor blood pressure resume as needed #Hyperlipidemia Lipid panel 03/26 shows triglyceride 134, cholesterol 209, LDL 133, HDL 49 Continue atorvastatin #ESRD on dialysis MWF #Seizure disorder #Restless leg syndrome #Anxiety -Management per Primary Hospitalist team Thank you for the consult and allowing to participate in the care of the patient. Cardiology will continue to follow. Case discussed with Attending Physician Dr. Zaheer Gonzalez MD Internal Medicine PGY-2 Disclaimer: This note was dictated by speech recognition. Minor errors in medical lead may be present due to voice recognition software.
--- NOTE | 2025-08-16 13:39 | ESPR_ITS ---
<Statement entered by Eric Kaur MD - 08/16/25 16:51> I saw and examined patient personally and supervised PGY 1 resident, Dr. Fan with formulating a management plan. I agree with the documentation with the exceptions as listed below. Patient here for syncope workup. Orthostatic vitals were found to be positive. Pacemaker was interrogated on 08/15 and pending cardiology recommendations. Physical therapy assessed the patient today and recommended SNF. On 08/15 we were contacted by the utilization department who said that patient does not meet inpatient criteria and she was switched to observation. Today patient was switched back to inpatient status as she will have to be in hospital for 3 midnights before being discharged to SNF. Plan of care discussed with Attending Dr. Noah Kaur MD PGY 2 Disclaimer: This note was dictated by speech recognition. Minor errors in medical supply technician may be present due to voice recognition software. Documentation for date of: 08/16/25 Subjective Subjective Interval history: Patient seen and examined at bedside; no acute events overnight. Daughter at bedside who also provides care for her mother states that ever since discharge on June, patient has not gotten her strength back. She has been progressively getting weaker and weaker over the 2 days prior to admission. She was brought in to ED after having found lying on the bathroom floor unresponsive. She does not recall her fall and awoke to a wound just above her nasal ridge. Orthostatic vitals positive (138/78 lying down, 83/51 standing). Patient received pacemaker 5 months after CABG. patient and family would like the patient to be discharged to SNF. PT recommended daily physical therapy until DC and balance training to maximize safety with ambulation and return to PROF. she is a fall risk and needs of walker and assistance at all times to ambulate. PT recommends rehab placement. Exam Vital Signs Temp Pulse Resp BP Pulse Ox O2 Del Method 97.3 F 78 14 111/63 93 L Room Air 08/16/25 08:00 08/16/25 08:00 08/16/25 08:00 08/16/25 08:00 08/16/25 08:00 08/16/25 08:00 Narrative Exam General: Awake and in no acute distress. Conversational and non-toxic appearing. Neurologic: GCS 15. Alert and oriented x3, no gross neurological deficit, and patient able to move all 4 extremities. HEENT: Ecchymoses across the nasal bridge and surrouindg the patient's eyes bilaterally; no issues with vision. Normocephalic, atraumatic, mucous membranes moist. Pupils reactive to light. Heart: Regular rate and rhythm, normal S1 and S2, no murmurs. Lungs: Clear to auscultation bilaterally with no wheezing or crackles. Abdomen: Soft, nondistended, nontender, positive bowel sounds. No guarding or rebound tenderness. Extremities: No edema. 2+ radial and dorsalis pedis pulses bilaterally. Skin: Warm. Dry. No rash or ecchymoses. Objective Labs 08/16/25 05:10 08/16/25 05:10 Labs: Laboratory Results - last 24 hr 08/16/25 05:10 WBC 7.7 RBC 3.21 L Hgb 10.2 L Hct 31.7 L MCV 99 MCH 31.8 MCHC 32.2 RDW Std Deviation 56.5 H Plt Count 241 Neut % (Auto) 54 Lymph % (Auto) 27 [place] % (Auto) 11 Eos % (Auto) 5 Baso % (Auto) 1 Neut # (Auto) 4.2 Lymph # (Auto) 2.1 [place] # (Auto) 0.9 H Eos # (Auto) 0.4 Baso # (Auto) 0.1 Immature Gran # (Auto) 0.06 H Absolute Nucleated RBC 0.00 Immature Gran % 1 H Nucleated RBC % 0 Sodium 142 Potassium 4.4 Chloride 101 Carbon Dioxide 23.9 Anion Gap 17 H BUN 30 H Creatinine 4.1 H* D Estim Creat Clear Calc 14.0 L eGFR 11 L* BUN/Creatinine Ratio 7 L Glucose 101 D Calculated Osmolality 289 Calcium 9.0 Corrected Calcium 9.0 Magnesium 2.1 Total Bilirubin 0.4 AST 26 ALT 16 Alkaline Phosphatase 130 H Total Protein 6.5 Albumin 4.0 Globulin 2.5 Albumin/Globulin Ratio 1.6 Quality Measures Quality Measures none Advance care planning discussed with:: other Assessment & Plan Assessment Current Active Medications: Generic Name Dose Route Start Last Admin Trade Name Freq PRN Reason Stop Dose Admin Acetaminophen 650 mg 08/15/25 11:03 Acetaminophen 325 Mg Tablet PO 09/14/25 05:29 Q6H PRN Fever >100.4 or pain 1-3 Hydrocodone Bitart/Acetaminophen 1 tab 08/15/25 11:02 08/15/25 11:18 Hydrocodone/Apap 5/325 Tablet PO 08/20/25 11:01 1 tab Q6HR PRN Administration PAIN SCALE 4-10(Mod-Sev Aspirin 81 mg 08/15/25 09:00 08/16/25 08:58 Aspirin Ec 81 Mg Tabec PO 09/14/25 08:59 81 mg QDAY ALEX Administration Buspirone HCl 10 mg 08/15/25 09:00 08/16/25 08:57 Buspirone Hcl 5 Mg Tablet PO 09/14/25 08:59 10 mg BID ALEX Administration Clopidogrel Bisulfate 75 mg 08/15/25 09:00 08/16/25 08:58 Clopidogrel Bisulfate 75 Mg Tablet PO 09/14/25 08:59 75 mg QDAY ALEX Administration Duloxetine HCl 30 mg 08/15/25 09:00 08/16/25 08:58 Duloxetine Hcl 30 Mg Capsule PO 09/14/25 08:59 30 mg BID ALEX Administration Heparin Sodium (Porcine) 3,300 unit 08/15/25 10:29 08/15/25 10:31 Heparin Sod Inj 1000 Unit/Ml Vial 10 Ml INDWELLCAT 08/29/25 10:28 3,300 unit X1 PRN Administration DIALYSIS Levetiracetam 750 mg 08/15/25 09:00 08/16/25 08:57 Levetiracetam 250 Mg Tablet PO 09/14/25 08:59 750 mg BID ALEX Administration Metoclopramide HCl 2.5 mg 08/15/25 06:22 Metoclopramide Inj 5 Mg/Ml Vial 2 Ml IVP 09/14/25 06:29 Q8HR PRN nausea or vomiting Protocol Midodrine 10 mg 08/15/25 13:41 Midodrine 5 Mg Tablet PO 09/14/25 13:59 TID PRN Blood Pressure -hold BP=>120 Ropinirole HCl 0.5 mg 08/15/25 09:00 08/16/25 08:58 Ropinirole Hcl 0.25 Mg Tablet PO 09/14/25 08:59 0.5 mg BID ALEX Administration Vitamin B Complex/Vit C/Folic Acid 1 tab 08/15/25 09:00 08/16/25 08:58 Vit B12/Vit C/Fa (Nephrovite) Tablet PO 09/14/25 08:59 1 tab QDAY ALEX Administration Plan Patient is a 65-year-old female PMH of ESRD on dialysis, CAD post triple CABG, symptomatic bradycardia with pacemaker, seizures, labile blood pressure, CVA, HLD, anxiety, and recreational drug use presented 08/15/25 with chief complaint of weakness. Previous recent ED visit on 08/13/25 after an episode of syncope. patient admitted for syncope and weakness workup. #Syncopal episode secondary to #Orthostatic hypotension and #ESRD causing #Labile BP and #Labile fluid status #?Polypharmacy Ddx: Autonomic neuropathy iso DM. Patient also reports paresthesias in bilateral feet. Patient had syncopal episode on 08/13/25, resulting in ground-level fall. Orthostatic HoTN positive on 08/15/25 (138/78 lying down, 83/51 standing). Gets dialysis M/W/F Patient takes midorine, valsartan, labelalol as needed for BP. Plan: - Nephrology, Dr Awad, consulted: Patient will be dialyzed on her dialysis days, i.e., MWF and as needed Patient will be discharged to SNF. PT saw and evaluated the patient, making the recommendation to provide physical therapy/balance exercises daily until discharge, and then to dc to rehab with instructions to ambulate using walker and assistance from others. Monitor volume status Treat BP as needed Do medication reconciliation for potential agents causing hypotension #CAD post-triple bypass 04/20 #A-fib #Bradycardia with pacemaker -Two episodes of syncopal episodes prior to admission -EKG showing NSR. -Head CT (08/14/2025): Negative for acute hemorrhage, mass effect or midline shift -Pacemaker was placed on Sep [address] Allred in [place] due to symptomatic bradycardia with AV block. -Orthostatic hypotension positive Plan: Cardiology, Dr. Marks, consulted: will provide recommendations according to the pacemaker interrogation report. Aspirin 81 qd Plavix 75 qd Cardiology consulted, appreciate recs #Seizure disorder Plan: Keppra 750 BID #Restless leg syndrome Plan: Ropinirole 0.5 BID #Anxiety Plan: Busprione 10 BID Disposition: Tele DVT prophylaxis:SCD GI prophylaxis: Diet: Renal Lines: PIV, dialysis catether CODE STATUS: Full This case was discussed with my attending physician, Dr. Zamora, and senior resident, Dr Kaur. Even though this this note was carefully revised there may still be minor errors in medical supply technician due to voice recognition software. Fernando Fan, PGY I Attending Provider Attestation/Addendum I have seen and examined the patient. I was physically present for the [place] portions of the services provided including history, physical exam, diagnosis, treatment plans and orders. I agree with assessment and plan of care as documented by residents. Even though this this note was carefully revised there may still be minor errors in medical supply technician due to voice recognition software. Renata Zamora MD
[2025-08-17] VITALS (8 sets, daily range): BP systolic 101–131; BP diastolic 67–85; PULSE 78–97; RESP 12–95; TEMP 35.9–36.3; O2SAT 92–100; BMI 26.3
[2025-08-17 06:11] LABS: Basophils # (Auto) 0.1 Thou/mm3 (0.0-0.2); Basophils % (Auto) 1 % (0-2.5); Eosinophils # (Auto) 0.5 Thou/mm3 (0.0-0.5); Eosinophils % (Auto) 4 % (0-10); Hematocrit 31.4 % (36.0-46.0); Hemoglobin 10.1 g/dL (12.0-16.0); Immature Granulocytes Auto 0.04 Thou/mm3 (0.00-0.00); Lymphocytes # (Auto) 2.1 Thou/mm3 (1.0-4.8); Lymphocytes % (Auto) 19 % (10-50); Mean Corpuscular HGB Conc 32.2 g/dl (31.0-37.0); Mean Corpuscular Hemoglobin 31.3 pg (25.0-35.0); Mean Corpuscular Volume 97 fL (80-100); Monocytes # (Auto) 1.0 Thou/mm3 (0.0-0.8); Monocytes % (Auto) 9 % (0-12); Neutrophils # (Auto) 7.4 Thou/mm3 (1.8-7.7); Neutrophils % (Auto) 67 % (37-80); Nucleated Red Blood Cell # 0.00 Thou/mm3 (0.00-0.00); Nucleated Red Blood Cell % 0 /100 WBC (0); Platelet Count 243 Thou/mm3 (140-440); RDW Standard Deviation 53.0 fL (36.4-46.3); Red Blood Count 3.23 Miln/mm3 (4.00-5.20); White Blood Count 11.0 Thou/mm3 (3.6-11.0)
[2025-08-17 07:18] LABS: Alanine Aminotransferase 18 U/L (10-49); Albumin, Serum 3.9 gm/dL (3.4-4.8); Albumin/Globulin Ratio 1.6 (1.2-2.2); Alkaline Phosphatase 137 U/L (46-116); Anion Gap 13 (7-16); Aspartate Amino Transferase 17 U/L (0-34); BUN/Creatinine Ratio 10 Ratio (12-20); Bilirubin,Total 0.3 mg/dL (0.3-1.2); Blood Urea Nitrogen 52 mg/dL (9-23); Calcium 9.2 mg/dL (8.3-10.6); Calcium (Corrected) 9.3 mg/dL (8.5-10.1); Carbon Dioxide 23.9 mMol/L (20.0-31.0); Chloride 101 mMol/L (98-107); Creatinine (Component) 5.2 mg/dL (0.6-1.3); Estimated Creatinine Clearance 11.1 mL/min (>60); Globulin 2.5 gm/dL (2.3-3.5); Glucose 82 mg/dL (74-106); Magnesium 2.3 mg/dL (1.6-2.6); Osmolality,Calculated 288 (275-295); Phosphorous 6.1 mg/dL (2.4-5.1); Potassium 4.0 mMol/L (3.4-5.1); Sodium 138 mMol/L (136-145); Total Protein 6.4 gm/dL (5.7-8.2); eGFR 9 See Note
[2025-08-17] MEDS: VIT B12/Vit C/FA (Nephrovite) TABLET 1 TAB PO (09:28)
[2025-08-17] MEDS: DULoxetine HCL 30 MG CAPSULE PO ×2 (09:28→20:10)
[2025-08-17] MEDS: CLOPIDOGREL BISULFATE 75 MG TABLET PO (09:28)
[2025-08-17] MEDS: ASPIRIN EC 81 MG TABEC PO (09:28)
--- NOTE | 2025-08-17 10:20 | PC.SS ---
SNF referral submitted via [facility] per pt request. Pt #1 choice is [facility], pending responses. Pt will need 3MN qualifying stay
--- NOTE | 2025-08-17 12:46 | PD.RESPRO ---
Documentation for date of: 08/17/25 Subjective Subjective Interval history: Patient seen and examined at bedside; no acute events overnight. Feeling better with dizziness, have ordered CARLOS ENRIQUE stockings to reduce risk of syncopal episodes. For planned discharge to SNF, patient needs to be admitted to hospital for 3 midnights; will stay until Monday. Exam Vital Signs Temp Pulse Resp BP Pulse Ox O2 Del Method 96.6 F L 79 16 101/67 92 L Room Air 08/17/25 12:00 08/17/25 12:08/17/25 12:08/17/25 12:08/17/25 12:08/17/25 12:00 Narrative Exam General: Awake and in no acute distress. Conversational and non-toxic appearing. Dialysis catheter present. Neurologic: GCS 15. Alert and oriented x3, no gross neurological deficit, and patient able to move all 4 extremities. HEENT: Ecchymoses across the nasal bridge and surrouindg the patient's eyes bilaterally; no issues with vision. Normocephalic, atraumatic, mucous membranes moist. Pupils reactive to light. Heart: Regular rate and rhythm, normal S1 and S2, no murmurs. Lungs: Clear to auscultation bilaterally with no wheezing or crackles. Abdomen: Soft, nondistended, nontender, positive bowel sounds. No guarding or rebound tenderness. Extremities: No edema. 2+ radial and dorsalis pedis pulses bilaterally. Skin: Warm. Dry. No rash or ecchymoses. Objective Labs 08/17/25 05:35 08/17/25 05:35 Labs: Laboratory Results - last 24 hr 08/17/25 05:35 WBC 11.0 D RBC 3.23 L Hgb 10.1 L Hct 31.4 L MCV 97 MCH 31.3 MCHC 32.2 RDW Std Deviation 53.0 H Plt Count 243 Neut % (Auto) 67 Lymph % (Auto) 19 [place] % (Auto) 9 Eos % (Auto) 4 Baso % (Auto) 1 Neut # (Auto) 7.4 Lymph # (Auto) 2.1 [place] # (Auto) 1.0 H Eos # (Auto) 0.5 Baso # (Auto) 0.1 Immature Gran # (Auto) 0.04 H Absolute Nucleated RBC 0.00 Immature Gran % 0 Nucleated RBC % 0 Sodium 138 Potassium 4.0 Chloride 101 Carbon Dioxide 23.9 Anion Gap 13 BUN 52 H Creatinine 5.2 H* D Estim Creat Clear Calc 11.1 L eGFR 9 L* BUN/Creatinine Ratio 10 L Glucose 82 Calculated Osmolality 288 Calcium 9.2 Corrected Calcium 9.3 Phosphorus 6.1 H Magnesium 2.3 Total Bilirubin 0.3 AST 17 ALT 18 Alkaline Phosphatase 137 H Total Protein 6.4 Albumin 3.9 Globulin 2.5 Albumin/Globulin Ratio 1.6 Quality Measures Quality Measures none Advance care planning discussed with:: other Assessment & Plan Assessment Current Active Medications: Generic Name Dose Route Start Last Admin Trade Name Freq PRN Reason Stop Dose Admin Acetaminophen 650 mg 08/15/25 11:03 Acetaminophen 325 Mg Tablet PO 09/14/25 05:29 Q6H PRN Fever >100.4 or pain 1-3 Hydrocodone Bitart/Acetaminophen 1 tab 08/15/25 11:02 08/15/25 11:18 Hydrocodone/Apap 5/325 Tablet PO 08/20/25 11:01 1 tab Q6HR PRN Administration PAIN SCALE 4-10(Mod-Sev Aspirin 81 mg 08/15/25 09:00 08/17/25 09:28 Aspirin Ec 81 Mg Tabec PO 09/14/25 08:59 81 mg QDAY ALEX Administration Buspirone HCl 10 mg 08/15/25 09:00 08/17/25 09:28 Buspirone Hcl 5 Mg Tablet PO 09/14/25 08:59 10 mg BID ALEX Administration Clopidogrel Bisulfate 75 mg 08/15/25 09:00 08/17/25 09:28 Clopidogrel Bisulfate 75 Mg Tablet PO 09/14/25 08:59 75 mg QDAY ALEX Administration Duloxetine HCl 30 mg 08/15/25 09:00 08/17/25 09:28 Duloxetine Hcl 30 Mg Capsule PO 09/14/25 08:59 30 mg BID ALEX Administration Heparin Sodium (Porcine) 3,300 unit 08/15/25 10:29 08/15/25 10:31 Heparin Sod Inj 1000 Unit/Ml Vial 10 Ml INDWELLCAT 08/29/25 10:28 3,300 unit X1 PRN Administration DIALYSIS Levetiracetam 750 mg 08/15/25 09:00 08/17/25 09:28 Levetiracetam 250 Mg Tablet PO 09/14/25 08:59 750 mg BID ALEX Administration Metoclopramide HCl 2.5 mg 08/15/25 06:22 Metoclopramide Inj 5 Mg/Ml Vial 2 Ml IVP 09/14/25 06:29 Q8HR PRN nausea or vomiting Protocol Midodrine 10 mg 08/15/25 13:41 Midodrine 5 Mg Tablet PO 09/14/25 13:59 TID PRN Blood Pressure -hold BP=>120 Ropinirole HCl 0.5 mg 08/15/25 09:00 08/17/25 09:28 Ropinirole Hcl 0.25 Mg Tablet PO 09/14/25 08:59 0.5 mg BID ALEX Administration Vitamin B Complex/Vit C/Folic Acid 1 tab 08/15/25 09:00 08/17/25 09:28 Vit B12/Vit C/Fa (Nephrovite) Tablet PO 09/14/25 08:59 1 tab QDAY ALEX Administration Plan Patient is a 65-year-old female PMH of ESRD on dialysis, CAD post triple CABG, symptomatic bradycardia with pacemaker, seizures, labile blood pressure, CVA, HLD, anxiety, and recreational drug use presented 08/15/25 with chief complaint of weakness. Previous recent ED visit on 08/13/25 after an episode of syncope. patient admitted for syncope and weakness workup. #Syncopal episode secondary to #Orthostatic hypotension and #ESRD causing #Labile BP and #Labile fluid status #?Polypharmacy Ddx: Autonomic neuropathy iso DM. Patient also reports paresthesias in bilateral feet. Patient had syncopal episode on 08/13/25, resulting in ground-level fall. Orthostatic HoTN positive on 08/15/25 (138/78 lying down, 83/51 standing). Gets dialysis M/W/F Patient takes midorine, valsartan, labelalol as needed for BP. Plan: - Nephrology, Dr Awad, consulted: Patient will be dialyzed on her dialysis days, i.e., MWF and as needed Patient will be discharged to SNF. PT saw and evaluated the patient, making the recommendation to provide physical therapy/balance exercises daily until discharge, and then to dc to rehab with instructions to ambulate using walker and assistance from others. For planned discharge to SNF, patient needs to be admitted to hospital for 3 midnights; will stay until Monday. Monitor volume status Treat BP as needed Carlos Enrique hose stockings were ordered. #CAD post-triple bypass 04/20 #A-fib #Bradycardia with pacemaker -Two episodes of syncopal episodes prior to admission -EKG showing NSR. -Head CT (08/14/2025): Negative for acute hemorrhage, mass effect or midline shift -Pacemaker was placed on Sep [address] Allred in [place] due to symptomatic bradycardia with AV block. -Orthostatic hypotension positive Plan: Cardiology, Dr. Marks, consulted: will provide recommendations according to the pacemaker interrogation report. Aspirin 81 qd Plavix 75 qd Cardiology consulted, appreciate recs- continue current management, educate patient on slow to rise, compression stockings #Seizure disorder Plan: Keppra 750 BID #Restless leg syndrome Plan: Ropinirole 0.5 BID #Anxiety Plan: Busprione 10 BID Disposition: Tele, stay until Monday DVT prophylaxis:SCD GI prophylaxis: Diet: Renal Lines: PIV, dialysis catether CODE STATUS: Full This case was discussed with my attending physician, Dr. Zamora, and senior resident, Dr Mcintosh. Gonzalez Villagran, PGY1 Senior Resident Attestation: The patient reported doing well, and improvement on her symptoms. Denied any chest pain, SOB, or dizziness. CARLOS ENRIQUE hose compression a stocking was ordered, and patient was advised to stand slowly from sitting position. However, patient is still weak, and is pending placement for SNF. I discussed with and supervised the internal communications manager physician involved in the care of this patient. I personally saw and examined the patient and discussed the assessment and plan with the entire medicine team, including my attending. I agree with the assessment and plan as documented above. Turner Mcintosh MD PGY3 Internal Medicine Attending Provider Attestation/Addendum I have seen and examined the patient. I was physically present for the [place] portions of the services provided including history, physical exam, diagnosis, treatment plans and orders. I agree with assessment and plan of care as documented by residents. Even though this this note was carefully revised there may still be minor errors in sand analyst due to voice recognition software. eRnata Zamora MD
--- NOTE | 2025-08-17 14:01 | PD.RESPRO ---
Documentation for date of: 08/17/25 Subjective Subjective Interval history: Patient seen examined at bedside Patient educated on orthostatic hypotension. Verbalized understanding Continue midodrine as prescribed previously. Patient has no current complaints plan to be discharged to intermediate facility per physical therapy recommendations. Orthostatic hypotension (OH) treatment focuses on?lifestyle changes like increasing fluids/salt, slow position changes, compression garments, and avoiding triggers (alcohol, large meals, heat), with medications like midodrine used if needed, plus addressing underlying causes, aiming to improve quality of life by reducing dizziness and fainting.?? Patient is cleared from cardiology standpoint for discharge. Exam Vital Signs Temp Pulse Resp BP Pulse Ox O2 Del Method 96.6 F L 79 16 101/67 92 L Room Air 08/17/25 12:00 08/17/25 12:00 08/17/25 12:00 08/17/25 12:00 08/17/25 12:00 08/17/25 12:00 Narrative Exam General: Awake and in no acute distress. Conversational and non-toxic appearing. Neurologic: GCS 15. Alert and oriented x3, no gross neurological deficit, and patient able to move all 4 extremities. HEENT: Ecchymoses across the nasal bridge and surrouindg the patient's eyes bilaterally; no issues with vision. Normocephalic, atraumatic, mucous membranes moist. Pupils reactive to light. Heart: Regular rate and rhythm, normal S1 and S2, no murmurs. Lungs: Clear to auscultation bilaterally with no wheezing or crackles. Abdomen: Soft, nondistended, nontender, positive bowel sounds. No guarding or rebound tenderness. Extremities: No edema. 2+ radial and dorsalis pedis pulses bilaterally. Skin: Warm. Dry. No rash or ecchymoses. Objective Labs 08/17/25 05:35 08/17/25 05:35 Labs: Laboratory Results - last 24 hr 08/17/25 05:35 WBC 11.0 D RBC 3.23 L Hgb 10.1 L Hct 31.4 L MCV 97 MCH 31.3 MCHC 32.2 RDW Std Deviation 53.0 H Plt Count 243 Neut % (Auto) 67 Lymph % (Auto) 19 [place] % (Auto) 9 Eos % (Auto) 4 Baso % (Auto) 1 Neut # (Auto) 7.4 Lymph # (Auto) 2.1 [place] # (Auto) 1.0 H Eos # (Auto) 0.5 Baso # (Auto) 0.1 Immature Gran # (Auto) 0.04 H Absolute Nucleated RBC 0.00 Immature Gran % 0 Nucleated RBC % 0 Sodium 138 Potassium 4.0 Chloride 101 Carbon Dioxide 23.9 Anion Gap 13 BUN 52 H Creatinine 5.2 H* D Estim Creat Clear Calc 11.1 L eGFR 9 L* BUN/Creatinine Ratio 10 L Glucose 82 Calculated Osmolality 288 Calcium 9.2 Corrected Calcium 9.3 Phosphorus 6.1 H Magnesium 2.3 Total Bilirubin 0.3 AST 17 ALT 18 Alkaline Phosphatase 137 H Total Protein 6.4 Albumin 3.9 Globulin 2.5 Albumin/Globulin Ratio 1.6 Quality Measures Quality Measures none Advance care planning discussed with:: patient Assessment & Plan Assessment Current Active Medications: Generic Name Dose Route Start Last Admin Trade Name Freq PRN Reason Stop Dose Admin Acetaminophen 650 mg 08/15/25 11:03 Acetaminophen 325 Mg Tablet PO 09/14/25 05:29 Q6H PRN Fever >100.4 or pain 1-3 Hydrocodone Bitart/Acetaminophen 1 tab 08/15/25 11:02 08/15/25 11:18 Hydrocodone/Apap 5/325 Tablet PO 08/20/25 11:01 1 tab Q6HR PRN Administration PAIN SCALE 4-10(Mod-Sev Aspirin 81 mg 08/15/25 09:00 08/17/25 09:28 Aspirin Ec 81 Mg Tabec PO 09/14/25 08:59 81 mg QDAY ALEX Administration Buspirone HCl 10 mg 08/15/25 09:00 08/17/25 09:28 Buspirone Hcl 5 Mg Tablet PO 09/14/25 08:59 10 mg BID ALEX Administration Clopidogrel Bisulfate 75 mg 08/15/25 09:00 08/17/25 09:28 Clopidogrel Bisulfate 75 Mg Tablet PO 09/14/25 08:59 75 mg QDAY ALEX Administration Duloxetine HCl 30 mg 08/15/25 09:00 08/17/25 09:28 Duloxetine Hcl 30 Mg Capsule PO 09/14/25 08:59 30 mg BID ALEX Administration Heparin Sodium (Porcine) 3,300 unit 08/15/25 10:29 08/15/25 10:31 Heparin Sod Inj 1000 Unit/Ml Vial 10 Ml INDWELLCAT 08/29/25 10:28 3,300 unit X1 PRN Administration DIALYSIS Levetiracetam 750 mg 08/15/25 09:00 08/17/25 09:28 Levetiracetam 250 Mg Tablet PO 09/14/25 08:59 750 mg BID ALEX Administration Metoclopramide HCl 2.5 mg 08/15/25 06:22 Metoclopramide Inj 5 Mg/Ml Vial 2 Ml IVP 09/14/25 06:29 Q8HR PRN nausea or vomiting Protocol Midodrine 10 mg 08/15/25 13:41 Midodrine 5 Mg Tablet PO 09/14/25 13:59 TID PRN Blood Pressure -hold BP=>120 Ropinirole HCl 0.5 mg 08/15/25 09:00 08/17/25 09:28 Ropinirole Hcl 0.25 Mg Tablet PO 09/14/25 08:59 0.5 mg BID ALEX Administration Vitamin B Complex/Vit C/Folic Acid 1 tab 08/15/25 09:00 08/17/25 09:28 Vit B12/Vit C/Fa (Nephrovite) Tablet PO 09/14/25 08:59 1 tab QDAY ALEX Administration Plan Ms. Carmona is a 65-year-old female with past medical history of ESRD on HD M/W/F follows Dr. Awad, CAD status post CABG November 2023, hypertension, hyperlipidemia, status post pacemaker placed in 2024 for symptomatic AV block-[employer] (Dr Mehta), PRES, CVA, type 2 diabetes mellitus, history of gastric sleeve operation, diabetic gastroparesis, seizure disorder on Keppra, restless leg syndrome, anxiety, and recurrent UTIs who presented to [facility] department on 08/15/2025 with a chief complaint of repeated syncopal episodes. Patient admitted for further workup. #Syncopal episodes secondary to #Orthostatic hypotension, orthostatic positive #s/p Pacemaker-[employer] placement in Sep 2024, history of AV block Two episodes of syncopal episodes prior to admission Head CT (08/14/2025): Negative for acute hemorrhage, mass effect or midline shift EKG 08/14 shows sinus rhythm Troponin 08/15 negative, denies any chest pain no acute ST-T changes. Pacemaker was placed on Sep [address] Allred in [place] due to symptomatic bradycardia with AV block. Orthostatic vital 08/15 orthostatic lying BP 138/78 HR 73, sitting BP 87/64 HR 84, standing 83/51, HR 81?orthostatic positive, likely etiology. Pacemaker interrogation report reviewed, no significant electrical activity noted at the time of syncope -Echocardiogram obtained recently 06/25/2025 shows 1. Left ventricle size is normal and systolic function is normal. Visually estimated ejection fraction is 55-60%. There is grade I diastolic dysfunction.There is moderate concentric hypertrophy noted. 2. Right ventricle size is normal and systolic function is normal. Estimated RVSP is 21 mmHg. 3. There is mild aortic valve sclerosis with no stenosis and no regurgitation. 4. There is mild tricuspid valve regurgitation. 5. Normal IVC with estimated RA pressure 8 mmHg. - CHELSY 06/30/2025 obtained to rule out endocarditis shows: 1. No clear evidence of any valvular vegetation or any vegetations on the pacemaker leads. No endocarditis. 2. Bubble study negative for PFO and ASD. No LA or JESSICA thrombus. 3. Normal LV size and function with an EF of around 60 to 65%. 4. Normal RV size and function. 5. Trace MR, TR and PI. No pericardial effusion. -Patient is orthostatic positive, educated bedside on slow to rise, wearing compression stockings. -Continue midodrine 10 mg p.o. 3 times daily as needed -Patient has no current complaints plan to be discharged to intermediate facility per physical therapy recommendations. -Orthostatic hypotension (OH) treatment focuses on?lifestyle changes like increasing fluids/salt, slow position changes, compression garments, and avoiding triggers (alcohol, large meals, heat), with medications like midodrine used if needed, plus addressing underlying causes, aiming to improve quality of life by reducing dizziness and fainting.?? Patient is cleared from cardiology standpoint for discharge. #CAD status post CABG November 2023 Patient does have a history of CAD status post CABG in May 2024 with an active cardiac catheterization after positive stress test which was done as part of the preoperative workup. - Continue aspirin and Plavix #Hypertension Patient does have a history of PRES Patient on labetalol 50 mg p.o. daily Monitor blood pressure resume as needed #Hyperlipidemia Lipid panel 03/26 shows triglyceride 134, cholesterol 209, LDL 133, HDL 49 Continue atorvastatin #ESRD on dialysis MWF #Seizure disorder #Restless leg syndrome #Anxiety -Management per Primary Hospitalist team Thank you for the consult and allowing to participate in the care of the patient. Cardiology will continue to follow. Case discussed with Attending Physician Dr. Zaheer Gonzalez MD Internal Medicine PGY-2 Disclaimer: This note was dictated by speech recognition. Minor errors in seismograph recorder may be present due to voice recognition software.
--- NOTE | 2025-08-17 16:31 | PC.SS ---
PASRR initiated meets LVL 2 dt Anxiety on Buspirone 10mg
[2025-08-18] VITALS (28 sets, daily range): BP systolic 82–129; BP diastolic 51–78; PULSE 73–93; RESP 12–96; TEMP 35.9–36.6; O2SAT 93–99; BMI 25.2; BMI 13.0
[2025-08-18 06:25] LABS: Basophils # (Auto) 0.1 Thou/mm3 (0.0-0.2); Basophils % (Auto) 1 % (0-2.5); Eosinophils # (Auto) 0.4 Thou/mm3 (0.0-0.5); Eosinophils % (Auto) 4 % (0-10); Hematocrit 30.1 % (36.0-46.0); Hemoglobin 9.7 g/dL (12.0-16.0); Immature Granulocytes Auto 0.04 Thou/mm3 (0.00-0.00); Lymphocytes # (Auto) 2.1 Thou/mm3 (1.0-4.8); Lymphocytes % (Auto) 22 % (10-50); Mean Corpuscular HGB Conc 32.2 g/dl (31.0-37.0); Mean Corpuscular Hemoglobin 31.7 pg (25.0-35.0); Mean Corpuscular Volume 98 fL (80-100); Monocytes # (Auto) 0.9 Thou/mm3 (0.0-0.8); Monocytes % (Auto) 10 % (0-12); Neutrophils # (Auto) 6.1 Thou/mm3 (1.8-7.7); Neutrophils % (Auto) 63 % (37-80); Nucleated Red Blood Cell # 0.00 Thou/mm3 (0.00-0.00); Nucleated Red Blood Cell % 0 /100 WBC (0); Platelet Count 246 Thou/mm3 (140-440); RDW Standard Deviation 53.9 fL (36.4-46.3); Red Blood Count 3.06 Miln/mm3 (4.00-5.20); White Blood Count 9.6 Thou/mm3 (3.6-11.0)
[2025-08-18 06:57] LABS: Alanine Aminotransferase 16 U/L (10-49); Albumin, Serum 3.9 gm/dL (3.4-4.8); Albumin/Globulin Ratio 1.6 (1.2-2.2); Alkaline Phosphatase 140 U/L (46-116); Anion Gap 16 (7-16); Aspartate Amino Transferase 15 U/L (0-34); Bilirubin,Total 0.3 mg/dL (0.3-1.2); Blood Urea Nitrogen 68 mg/dL (9-23); Calcium 9.2 mg/dL (8.3-10.6); Calcium (Corrected) 9.3 mg/dL (8.5-10.1); Carbon Dioxide 21.1 mMol/L (20.0-31.0); Chloride 100 mMol/L (98-107); Globulin 2.5 gm/dL (2.3-3.5); Glucose 99 mg/dL (74-106); Magnesium 2.4 mg/dL (1.6-2.6); Osmolality,Calculated 293 (275-295); Phosphorous 6.3 mg/dL (2.4-5.1); Potassium 4.5 mMol/L (3.4-5.1); Sodium 137 mMol/L (136-145); Total Protein 6.4 gm/dL (5.7-8.2)
[2025-08-18 06:58] LABS: BUN/Creatinine Ratio 11 Ratio (12-20); Creatinine (Component) 6.1 mg/dL (0.6-1.3); Estimated Creatinine Clearance 8.6 mL/min (>60); eGFR 7 See Note
[2025-08-18] MEDS: ALBUMIN HUMAN-KJDA 25% IVPB 25 GM/100 ML BTL IV (08:35)
[2025-08-18] MEDS: EPOETIN ALFA-EPBX INJ 10,000 UNIT/ML VIAL (NON-ESRD) 10000 UNIT IV (08:57)
[2025-08-18] MEDS: VIT B12/Vit C/FA (Nephrovite) TABLET 1 TAB PO (08:57)
[2025-08-18] MEDS: MIDODRINE 5 MG TABLET 10 MG PO (08:58)
[2025-08-18] MEDS: ASPIRIN EC 81 MG TABEC PO (08:58)
--- NOTE | 2025-08-18 09:53 | ESPR_ITS ---
Documentation for date of: 08/18/25 Subjective Subjective Interval history: Ms. Edita Carmona is 65yF with PMH of ESRD on dialysis 3 times a week, status post triple coronary artery bypass graft March 2024, pacemaker implantation for symptomatic bradycardia early 2024, seizures, labial blood pressure (hypertension and hypotension), CVA, hypercholesterolemia, anxiety, and recreational drug use, presented to [facility] ED on 08/15/2025 due to repeated episode of syncope. 2 days ago (08/13/2025) because she had an episode of syncope where she fell down onto her face. She was discharged from ED and received a dialysis session, but on the evening of 08/14, she again had episode of dizziness and acute weakness while on toilet, but she didn't fell down or lost consciousness. Patient was admitted and consulted cardiology for further evaluation of syncope in the setting of s/p triple CABG in 2023 and s/p pacemaker placement in early 2024 in symptomatic bradycardia ED course: Vitals: Temp: 98.8F, CA:76, RR:18, BP:93/63, O2sat: 97% on RA Labs: WBC 11.6, Hgb: 9.9, BUN:37, Cr:4.9, eGFR: 9, Glucose: [address] (08/14/2025): Negative for acute hemorrhage, mass effect or midline shift In ED patient was given Keppra 1000mg IV x1 Medical history: As stated above Surgical history: Triple coronary bypass in March 2024, pacemaker implantation early 2024, 3 C-sections, cholecystectomy Allergies: NKDA Medications: Cetirizine 10 mg daily, Alprazolam 0.25 mg p.o. as needed, Aspirin 81 mg daily Atorvastatin 40 mg nightly, Plavix 75 mg nightly, Labetalol 50 mg p.o. daily as needed, Keppra 1 g daily at bedtime, Keppra 750 mg p.o. twice daily, Meclizine 25 mg p.o. as needed, Midodrine 10 mg p.o. 3 times daily as needed, Pantoprazole 40 mg p.o. nightly, Ropinirole 0.25 mg p.o. nightly, Sevelamer 800 mg p.o. 3 times daily, Tradjenta 5 mg p.o. nightly, Valsartan 40 mg p.o. as needed for SBP over 140 Family history: Noncontributory Social history: Denies smoking cigarettes, drinking alcohol or using other illicit drugs 08/15/2025: Labs reviewed and patient examined at the bedside. Patient with syncope with pacemaker. Pacemaker interrogation results will be reviewd tomorrow. if no device related abnormalities, then alternative causes should be considered as a cause of her syncope including electolyte derangements and volume shifts secondary to dialysis. Denies chest pain, palpation, SOB, abdominal pain, N/V, fevers or chills. 08/16/2025: Patient seen and examined at bedside Currently has no complaints reports she is doing well Pacemaker interrogation report reviewed, normal function. No significant event noted at time of syncope. Patient is orthostatic positive, educated bedside on slow to rise, wearing compression stockings. Orthostatic hypotension (OH) treatment focuses on?lifestyle changes like increasing fluids/salt, slow position changes, compression garments, and avoiding triggers (alcohol, large meals, heat), with medications like midodrine used if needed, plus addressing underlying causes, aiming to improve quality of life by reducing dizziness and fainting.?? Patient is cleared from cardiology standpoint for discharge. 08/17/2025: Patient seen examined at bedside Patient educated on orthostatic hypotension. Verbalized understanding Continue midodrine as prescribed previously. Patient has no current complaints plan to be discharged to senior care facility per physical therapy recommendations. Orthostatic hypotension (OH) treatment focuses on?lifestyle changes like increasing fluids/salt, slow position changes, compression garments, and avoiding triggers (alcohol, large meals, heat), with medications like midodrine used if needed, plus addressing underlying causes, aiming to improve quality of life by reducing dizziness and fainting.?? Patient is cleared from cardiology standpoint for discharge. 08/18/2025: No Overnight events. Labs reviewed and patient examined at the bedside. Patient's vitals are stable, and no current active complaints as of this moment. Patient will continue Aspirin 81mg po qd, Plavix 75mg po qd, and Midodrine 10mg po tid. Advised patient to buy 30-40mmHg compression stockings for managment of her orthostatic hypotension. Patient is clared from cardiology standpoint. Exam Vital Signs Temp Pulse Resp BP Pulse Ox O2 Del Method 97.1 F 76 12 128/68 94 L Room Air 08/18/25 07:57 08/18/25 09:45 08/18/25 07:57 08/18/25 09:45 08/18/25 07:57 08/18/25 04:00 Narrative Exam General: Awake and in no acute distress. Conversational and non-toxic appearing. Neurologic: GCS 15. Alert and oriented x3, no gross neurological deficit, and patient able to move all 4 extremities. HEENT: Ecchymoses across the nasal bridge and surrouindg the patient's eyes bilaterally; no issues with vision. Normocephalic, atraumatic, mucous membranes moist. Pupils reactive to light. Heart: Regular rate and rhythm, normal S1 and S2, no murmurs. Lungs: Clear to auscultation bilaterally with no wheezing or crackles. Abdomen: Soft, nondistended, nontender, positive bowel sounds. No guarding or rebound tenderness. Extremities: No edema. 2+ radial and dorsalis pedis pulses bilaterally. Skin: Warm. Dry. No rash or ecchymoses. Objective Labs 08/19/25 05:20 08/19/25 05:20 Labs: Laboratory Results - last 24 hr 08/18/25 05:12 WBC 9.6 RBC 3.06 L Hgb 9.7 L Hct 30.1 L MCV 98 MCH 31.7 MCHC 32.2 RDW Std Deviation 53.9 H Plt Count 246 Neut % (Auto) 63 Lymph % (Auto) 22 [place] % (Auto) 10 Eos % (Auto) 4 Baso % (Auto) 1 Neut # (Auto) 6.1 Lymph # (Auto) 2.1 [place] # (Auto) 0.9 H Eos # (Auto) 0.4 Baso # (Auto) 0.1 Immature Gran # (Auto) 0.04 H Absolute Nucleated RBC 0.00 Immature Gran % 0 Nucleated RBC % 0 Sodium 137 Potassium 4.5 D Chloride 100 Carbon Dioxide 21.1 Anion Gap 16 BUN 68 H Creatinine 6.1 H* D Estim Creat Clear Calc 8.6 L eGFR 7 L* BUN/Creatinine Ratio 11 L Glucose 99 Calculated Osmolality 293 Calcium 9.2 Corrected Calcium 9.3 Phosphorus 6.3 H Magnesium 2.4 Total Bilirubin 0.3 AST 15 ALT 16 Alkaline Phosphatase 140 H Total Protein 6.4 Albumin 3.9 Globulin 2.5 Albumin/Globulin Ratio 1.6 Quality Measures Quality Measures none Advance care planning discussed with:: patient and other Assessment & Plan Assessment Current Active Medications: Generic Name Dose Route Start Last Admin Trade Name Wilfredo PRN Reason Stop Dose Admin Acetaminophen 650 mg 08/15/25 11:03 Acetaminophen 325 Mg Tablet PO 09/14/25 05:29 Q6H PRN Fever >100.4 or pain 1-3 Hydrocodone Bitart/Acetaminophen 1 tab 08/15/25 11:02 08/15/25 11:18 Hydrocodone/Apap 5/325 Tablet PO 08/20/25 11:01 1 tab Q6HR PRN Administration PAIN SCALE 4-10(Mod-Sev Aspirin 81 mg 08/15/25 09:00 08/18/25 08:58 Aspirin Ec 81 Mg Tabec PO 09/14/25 08:59 81 mg QDAY ALEX Administration Buspirone HCl 10 mg 08/15/25 09:00 08/17/25 20:10 Buspirone Hcl 5 Mg Tablet PO 09/14/25 08:59 10 mg BID ALEX Administration Clopidogrel Bisulfate 75 mg 08/15/25 09:00 08/17/25 09:28 Clopidogrel Bisulfate 75 Mg Tablet PO 09/14/25 08:59 75 mg QDAY ALEX Administration Duloxetine HCl 30 mg 08/15/25 09:00 08/17/25 20:10 Duloxetine Hcl 30 Mg Capsule PO 09/14/25 08:59 30 mg BID ALEX Administration Heparin Sodium (Porcine) 3,300 unit 08/15/25 10:29 08/15/25 10:31 Heparin Sod Inj 1000 Unit/Ml Vial 10 Ml INDWELLCAT 08/29/25 10:28 3,300 unit X1 PRN Administration DIALYSIS Albumin Human 25 gm in 100 mls @ 200 mls/hr 08/18/25 08:31 08/18/25 08:35 Albuminex 25% Ivpb IV 200 mls/hr PRN PRN Administration DIALYSIS Levetiracetam 750 mg 08/15/25 09:00 08/17/25 20:10 Levetiracetam 250 Mg Tablet PO 09/14/25 08:59 750 mg BID ALEX Administration Metoclopramide HCl 2.5 mg 08/15/25 06:22 Metoclopramide Inj 5 Mg/Ml Vial 2 Ml IVP 09/14/25 06:29 Q8HR PRN nausea or vomiting Protocol Midodrine 10 mg 08/18/25 08:45 08/18/25 08:58 Midodrine 5 Mg Tablet PO 09/17/25 08:44 10 mg TID ALEX Administration Ropinirole HCl 0.5 mg 08/15/25 09:00 08/17/25 20:10 Ropinirole Hcl 0.25 Mg Tablet PO 09/14/25 08:59 0.5 mg BID ALEX Administration Vitamin B Complex/Vit C/Folic Acid 1 tab 08/15/25 09:00 08/18/25 08:57 Vit B12/Vit C/Fa (Nephrovite) Tablet PO 09/14/25 08:59 1 tab QDAY ALEX Administration Plan Ms. Carmona is a 65-year-old female with past medical history of ESRD on HD M/W/F follows Dr. Awad, CAD status post CABG November 2023, hypertension, hyperlipidemia, status post pacemaker placed in 2024 for symptomatic AV block- [employer] (Dr Mehta), PRES, CVA, type 2 diabetes mellitus, history of gastric sleeve operation, diabetic gastroparesis, seizure disorder on Keppra, restless leg syndrome, anxiety, and recurrent UTIs who presented to [facility] emergency department on 08/15/2025 with a chief complaint of repeated syncopal episodes. Patient admitted for further workup. #Syncopal episodes secondary to #Orthostatic hypotension, orthostatic positive #s/p Pacemaker-[employer] placement in Sep 2024, history of AV block Two episodes of syncopal episodes prior to admission Head CT (08/14/2025): Negative for acute hemorrhage, mass effect or midline shift EKG 08/14 shows sinus rhythm Troponin 08/15 negative, denies any chest pain no acute ST-T changes. Pacemaker was placed on Sep [address] Allred in [place] due to symptomatic bradycardia with AV block. Orthostatic vital 08/15 orthostatic lying BP 138/78 HR 73, sitting BP 87/64 HR 84, standing 83/51, HR 81?orthostatic positive, likely etiology. Pacemaker interrogation report reviewed, no significant electrical activity noted at the time of syncope -Echocardiogram obtained recently 06/25/2025 shows 1. Left ventricle size is normal and systolic function is normal. Visually estimated ejection fraction is 55-60%. There is grade I diastolic dysfunction.There is moderate concentric hypertrophy noted. 2. Right ventricle size is normal and systolic function is normal. Estimated RVSP is 21 mmHg. 3. There is mild aortic valve sclerosis with no stenosis and no regurgitation. 4. There is mild tricuspid valve regurgitation. 5. Normal IVC with estimated RA pressure 8 mmHg. - CHELSY 06/30/2025 obtained to rule out endocarditis shows: 1. No clear evidence of any valvular vegetation or any vegetations on the pacemaker leads. No endocarditis. 2. Bubble study negative for PFO and ASD. No LA or JESSICA thrombus. 3. Normal LV size and function with an EF of around 60 to 65%. 4. Normal RV size and function. 5. Trace MR, TR and PI. No pericardial effusion. -Patient is orthostatic positive, educated bedside on slow to rise, wearing compression stockings. -Continue midodrine 10 mg p.o. 3 times daily as needed -Patient has no current complaints plan to be discharged to senior care facility per physical therapy recommendations. -Orthostatic hypotension (OH) treatment focuses on?lifestyle changes like increasing fluids/salt, slow position changes, compression garments, and avoiding triggers (alcohol, large meals, heat), with medications like midodrine used if needed, plus addressing underlying causes, aiming to improve quality of life by reducing dizziness and fainting.?? Patient is cleared from cardiology standpoint for discharge. #CAD status post CABG November 2023 Patient does have a history of CAD status post CABG in May 2024 with an active cardiac catheterization after positive stress test which was done as part of the preoperative workup. - Continue aspirin and Plavix #Hypertension Patient does have a history of PRES Patient on labetalol 50 mg p.o. daily Monitor blood pressure resume as needed #Hyperlipidemia Lipid panel 03/26 shows triglyceride 134, cholesterol 209, LDL 133, HDL 49 Continue atorvastatin #ESRD on dialysis MWF #Seizure disorder #Restless leg syndrome #Anxiety -Management per Primary Hospitalist team Thank you for allowing us to participate in the care of Ms Edita Carmona. Cardiology will continue to follow Assessment and plan discussed with my attending physician Kendrick Carmona. Dr. White (PGY-1) - Internal medicine resident Attending Provider Attestation/Addendum I have personally seen and examined the patient separately on the above date of service and discussed the plan of care with the resident. I reviewed the resident Dr. Jazlyn White consultation progress note and agree with the resident findings and plan in the note above and have also edited the documentation to reflect my findings and plan. Zaheer Marks M.D. Interventional Cardiology
--- NOTE | 2025-08-18 10:46 | PC.SS ---
Follow up note: SS confirmed with Kelsi from [facility] she will accept pt tomorrow after meeting 3 midnights hospital stay.
[2025-08-18] MEDS: HEPARIN SOD INJ 1000 UNIT/ML VIAL 10 ML 3300 UNIT INDWELLCAT (10:50)
[2025-08-18] MEDS: CLOPIDOGREL BISULFATE 75 MG TABLET PO (11:46)
[2025-08-18] MEDS: DULoxetine HCL 30 MG CAPSULE PO ×2 (11:46→20:21)
--- NOTE | 2025-08-18 13:12 | PD.RESPRO ---
Documentation for date of: 08/18/25 Subjective Subjective Interval history: Patient seen and examined at bedside; no acute events overnight. Patient received dialysis today. EKG today shows QTc 420; dc tomorrow after 3 midnights. Exam Vital Signs Temp Pulse Resp BP Pulse Ox O2 Del Method 97.8 F 78 12 122/77 99 Room Air 08/18/25 11:21 08/18/25 11:21 08/18/25 11:21 08/18/25 11:21 08/18/25 11:21 08/18/25 04:00 Narrative Exam General: Awake and in no acute distress. Conversational and non-toxic appearing. Dialysis catheter present. Neurologic: GCS 15. Alert and oriented x3, no gross neurological deficit, and patient able to move all 4 extremities. HEENT: Ecchymoses across the nasal bridge and surrounding the patient's eyes bilaterally, improving; no issues with vision. Normocephalic, atraumatic, mucous membranes moist. Pupils reactive to light. Heart: Regular rate and rhythm, normal S1 and S2, no murmurs. Lungs: Clear to auscultation bilaterally with no wheezing or crackles. Abdomen: Soft, nondistended, nontender, positive bowel sounds. No guarding or rebound tenderness. Extremities: No edema. 2+ radial and dorsalis pedis pulses bilaterally. Skin: Warm. Dry. No rash or ecchymoses. Objective Labs 08/18/25 05:12 08/18/25 05:12 Labs: Laboratory Results - last 24 hr 08/18/25 05:12 WBC 9.6 RBC 3.06 L Hgb 9.7 L Hct 30.1 L MCV 98 MCH 31.7 MCHC 32.2 RDW Std Deviation 53.9 H Plt Count 246 Neut % (Auto) 63 Lymph % (Auto) 22 [place] % (Auto) 10 Eos % (Auto) 4 Baso % (Auto) 1 Neut # (Auto) 6.1 Lymph # (Auto) 2.1 [place] # (Auto) 0.9 H Eos # (Auto) 0.4 Baso # (Auto) 0.1 Immature Gran # (Auto) 0.04 H Absolute Nucleated RBC 0.00 Immature Gran % 0 Nucleated RBC % 0 Sodium 137 Potassium 4.5 D Chloride 100 Carbon Dioxide 21.1 Anion Gap 16 BUN 68 H Creatinine 6.1 H* D Estim Creat Clear Calc 8.6 L eGFR 7 L* BUN/Creatinine Ratio 11 L Glucose 99 Calculated Osmolality 293 Calcium 9.2 Corrected Calcium 9.3 Phosphorus 6.3 H Magnesium 2.4 Total Bilirubin 0.3 AST 15 ALT 16 Alkaline Phosphatase 140 H Total Protein 6.4 Albumin 3.9 Globulin 2.5 Albumin/Globulin Ratio 1.6 Quality Measures Quality Measures none Advance care planning discussed with:: other Assessment & Plan Assessment Current Active Medications: Generic Name Dose Route Start Last Admin Trade Name Freq PRN Reason Stop Dose Admin Acetaminophen 650 mg 08/15/25 11:03 Acetaminophen 325 Mg Tablet PO 09/14/25 05:29 Q6H PRN Fever >100.4 or pain 1-3 Hydrocodone Bitart/Acetaminophen 1 tab 08/15/25 11:02 08/15/25 11:18 Hydrocodone/Apap 5/325 Tablet PO 08/20/25 11:01 1 tab Q6HR PRN Administration PAIN SCALE 4-10(Mod-Sev Aspirin 81 mg 08/15/25 09:00 08/18/25 08:58 Aspirin Ec 81 Mg Tabec PO 09/14/25 08:59 81 mg QDAY ALEX Administration Buspirone HCl 10 mg 08/15/25 09:00 08/18/25 11:47 Buspirone Hcl 5 Mg Tablet PO 09/14/25 08:59 10 mg BID ALEX Administration Clopidogrel Bisulfate 75 mg 08/15/25 09:00 08/18/25 11:46 Clopidogrel Bisulfate 75 Mg Tablet PO 09/14/25 08:59 75 mg QDAY ALEX Administration Duloxetine HCl 30 mg 08/15/25 09:00 08/18/25 11:46 Duloxetine Hcl 30 Mg Capsule PO 09/14/25 08:59 30 mg BID ALEX Administration Heparin Sodium (Porcine) 3,300 unit 08/15/25 10:29 08/18/25 10:50 Heparin Sod Inj 1000 Unit/Ml Vial 10 Ml INDWELLCAT 08/29/25 10:28 3,300 unit X1 PRN Administration DIALYSIS Albumin Human 25 gm in 100 mls @ 200 mls/hr 08/18/25 08:31 08/18/25 08:35 Albuminex 25% Ivpb IV 200 mls/hr PRN PRN Administration DIALYSIS Levetiracetam 750 mg 08/15/25 09:00 08/18/25 11:47 Levetiracetam 250 Mg Tablet PO 09/14/25 08:59 750 mg BID ALEX Administration Metoclopramide HCl 2.5 mg 08/15/25 06:22 Metoclopramide Inj 5 Mg/Ml Vial 2 Ml IVP 09/14/25 06:29 Q8HR PRN nausea or vomiting Protocol Midodrine 10 mg 08/18/25 08:45 08/18/25 08:58 Midodrine 5 Mg Tablet PO 09/17/25 08:44 10 mg TID ALEX Administration Ropinirole HCl 0.5 mg 08/15/25 09:00 08/18/25 11:47 Ropinirole Hcl 0.25 Mg Tablet PO 09/14/25 08:59 0.5 mg BID ALEX Administration Vitamin B Complex/Vit C/Folic Acid 1 tab 08/15/25 09:00 08/18/25 08:57 Vit B12/Vit C/Fa (Nephrovite) Tablet PO 09/14/25 08:59 1 tab QDAY ALEX Administration Plan Patient is a 65-year-old female PMH of ESRD on dialysis, CAD post triple CABG, symptomatic bradycardia with pacemaker, seizures, labile blood pressure, CVA, HLD, anxiety, and recreational drug use presented 08/15/25 with chief complaint of weakness. Previous recent ED visit on 08/13/25 after an episode of syncope. patient admitted for syncope and weakness workup. #Syncopal episode secondary to #Orthostatic hypotension and #ESRD causing #Labile BP and #Labile fluid status Ddx: Autonomic neuropathy iso DM. Patient also reports paresthesias in bilateral feet. Patient had syncopal episode on 08/13/25, resulting in ground-level fall. Orthostatic HoTN positive on 08/15/25 (138/78 lying down, 83/51 standing). Gets dialysis M/W/F Patient takes midorine, valsartan, labelalol as needed for BP. Plan: - Nephrology, Dr Awad, consulted: Patient will be dialyzed on her dialysis days, i.e., MWF and as needed Patient will be discharged to SNF. PT saw and evaluated the patient, making the recommendation to provide physical therapy/balance exercises daily until discharge, and then to dc to rehab with instructions to ambulate using walker and assistance from others. For planned discharge to SNF, patient needs to be admitted to hospital for 3 midnights; will stay until Monday. Monitor volume status Treat BP as needed Husam hose stockings ordered. Received dialysis today. #CAD post-triple bypass 04/20 #A-fib #Bradycardia with pacemaker -Two episodes of syncopal episodes prior to admission -EKG showing QTC normal today. -Head CT (08/14/2025): Negative for acute hemorrhage, mass effect or midline shift -Pacemaker was placed on Sep [address] Allred in [place] due to symptomatic bradycardia with AV block. -Orthostatic hypotension positive Plan: Cardiology, Dr. Marks, consulted: will provide recommendations according to the pacemaker interrogation report. Aspirin 81 qd Plavix 75 qd Cardiology consulted, appreciate recs- continue current management, educate patient on slow to rise, compression stockings #Seizure disorder Plan: Keppra 750 BID #Restless leg syndrome Plan: Ropinirole 0.5 BID #Anxiety Plan: Busprione 10 BID Disposition: Tele, stay until Monday DVT prophylaxis:SCD GI prophylaxis: Diet: Renal Lines: PIV, dialysis catether CODE STATUS: Full This case was discussed with my attending physician, Dr. Zamora, and senior resident, Dr Mcintosh. Gonzalez Villagran, PGY1 Senior Resident Attestation: The patient reported doing well, and repeat EKG revealed normal QTc interval, and patient will be discharged tomorrow to [facility] SNF, as she is required to stay at 3 midnight to be qualified for SNF. I discussed with and supervised the restaurant management internship physician involved in the care of this patient. I personally saw and examined the patient and discussed the assessment and plan with the entire medicine team, including my attending. I agree with the assessment and plan as documented above. Turner Mcintosh MD PGY3 Internal Medicine Attending Provider Attestation/Addendum I have seen and examined the patient. I was physically present for the [place] portions of the services provided including history, physical exam, diagnosis, treatment plans and orders. I agree with assessment and plan of care as documented by residents. Even though this this note was carefully revised there may still be minor errors in trigonometry teacher due to voice recognition software. Renata Zamora MD
--- NOTE | 2025-08-18 21:58 | ESPR_ITS ---
RE: KAREN BARNES : 1960 DATE OF SERVICE: 08/18/2025 HISTORY OF PRESENT ILLNESS: She is a 65-year-old woman with past medical history significant for type 2 diabetes with diabetic retinopathy, neuropathy, nephropathy, hypertension, CAD status post CABG, third-degree AV block status post pacemaker placement in 09/2024, and ESRD on dialysis at the [facility] dialyzing Monday, Monday, Monday since 2021, who presented to emergency room 2 days in a row for weakness. The patient fell twice and sustained 2 black eyes. The patient complains of being very weak and was tested for orthostatic hypotension and she was positive for orthostatic hypotension test. The patient was already started on midodrine 10 mg t.i.d. p.r.n. The patient is being seen by Dr. Wade, who also confirmed that the patient has orthostatic hypotension most likely secondary to autonomic neuropathy. The patient had dialysis today and due to the holidays, we will dialyze again tomorrow. CURRENT MEDICATIONS: 1. Acetaminophen. 2. Albumin. 3. Aspirin. 4. Buspirone 10 mg b.i.d. 5. Plavix 75 mg daily. 6. Duloxetine 10 mg b.i.d. 7. Epogen 10,000 units x1. 8. Hydrocodone. 9. Levetiracetam 750 mg b.i.d. 10. Metoclopramide 2.5 mg p.o. q.8. 11. Midodrine 10 mg p.o. t.i.d. p.r.n. 12. Requip 0.5 mg p.o. b.i.d. 13. Sarahi-Sixto. PHYSICAL EXAMINATION: GENERAL: Awake, alert, oriented. VITAL SIGNS: Blood pressure 120/78, heart rate of 73. HEENT: Anicteric sclerae, normocephalic. NECK: Supple, no JVD. CHEST AND LUNGS: Symmetric expansion, clear breath sounds. CARDIAC: Without murmur. ABDOMEN: Soft and nontender. EXTREMITIES: No edema. LABORATORY DATA: Hemoglobin 9.7, WBC 9600, platelet count 246,000. Sodium 137, potassium 4.5, chloride 102, CO2 of 21.1, BUN 68, creatinine 6.1. Glucose 99, calcium 9.2, phosphorus 6.3. ASSESSMENT: 1. ESRD. 2. Orthostatic hypotension due to autonomic neuropathy. 3. Anemia of chronic kidney disease. 4. Type 2 diabetes with retinopathy, neuropathy, nephropathy. 5. Debilitation. 6. History of coronary artery bypass graft. 7. History of pacemaker placement. 8. History of seizure disorder. PLAN: The patient will dialyze again tomorrow due to celebration of holidays at the dialysis unit. We will not take any fluids off of her tomorrow. She can go to a rehab after dialysis tomorrow on midodrine and special compression stockings suggested by Dr. Wade. DT: 21:48:12 TT: 21:56:00 Ref: [id number] - TID: [id number] MTDD
[2025-08-19] VITALS (19 sets, daily range): BP systolic 113–147; BP diastolic 58–93; PULSE 79–278; RESP 12–18; TEMP 35.9–36.7; O2SAT 94–98
[2025-08-19] MEDS: MIDODRINE 5 MG TABLET 10 MG PO ×2 (05:39→14:19)
[2025-08-19 06:12] LABS: Basophils # (Auto) 0.1 Thou/mm3 (0.0-0.2); Basophils % (Auto) 1 % (0-2.5); Eosinophils # (Auto) 0.4 Thou/mm3 (0.0-0.5); Eosinophils % (Auto) 4 % (0-10); Hematocrit 32.7 % (36.0-46.0); Hemoglobin 10.4 g/dL (12.0-16.0); Immature Granulocytes Auto 0.04 Thou/mm3 (0.00-0.00); Lymphocytes # (Auto) 2.5 Thou/mm3 (1.0-4.8); Lymphocytes % (Auto) 27 % (10-50); Mean Corpuscular HGB Conc 31.8 g/dl (31.0-37.0); Mean Corpuscular Hemoglobin 30.7 pg (25.0-35.0); Mean Corpuscular Volume 97 fL (80-100); Monocytes # (Auto) 0.9 Thou/mm3 (0.0-0.8); Monocytes % (Auto) 10 % (0-12); Neutrophils # (Auto) 5.3 Thou/mm3 (1.8-7.7); Neutrophils % (Auto) 57 % (37-80); Nucleated Red Blood Cell # 0.00 Thou/mm3 (0.00-0.00); Nucleated Red Blood Cell % 0 /100 WBC (0); Platelet Count 263 Thou/mm3 (140-440); RDW Standard Deviation 50.8 fL (36.4-46.3); Red Blood Count 3.39 Miln/mm3 (4.00-5.20); White Blood Count 9.2 Thou/mm3 (3.6-11.0)
[2025-08-19 06:43] LABS: Alanine Aminotransferase 21 U/L (10-49); Albumin, Serum 4.6 gm/dL (3.4-4.8); Albumin/Globulin Ratio 1.8 (1.2-2.2); Alkaline Phosphatase 148 U/L (46-116); Anion Gap 14 (7-16); Aspartate Amino Transferase 19 U/L (0-34); BUN/Creatinine Ratio 10 Ratio (12-20); Bilirubin,Total 0.4 mg/dL (0.3-1.2); Blood Urea Nitrogen 44 mg/dL (9-23); Calcium 9.9 mg/dL (8.3-10.6); Calcium (Corrected) 9.9 mg/dL (8.5-10.1); Carbon Dioxide 25.8 mMol/L (20.0-31.0); Chloride 99 mMol/L (98-107); Creatinine (Component) 4.2 mg/dL (0.6-1.3); Estimated Creatinine Clearance 13.9 mL/min (>60); Globulin 2.6 gm/dL (2.3-3.5); Glucose 117 mg/dL (74-106); Magnesium 2.3 mg/dL (1.6-2.6); Osmolality,Calculated 289 (275-295); Phosphorous 4.6 mg/dL (2.4-5.1); Potassium 3.9 mMol/L (3.4-5.1); Sodium 139 mMol/L (136-145); Total Protein 7.2 gm/dL (5.7-8.2); eGFR 11 See Note
[2025-08-19] MEDS: HEPARIN SOD INJ 1000 UNIT/ML VIAL 10 ML 3300 UNIT INDWELLCAT (10:28)
[2025-08-19] MEDS: ASPIRIN EC 81 MG TABEC PO (11:01)
[2025-08-19] MEDS: CLOPIDOGREL BISULFATE 75 MG TABLET PO (11:01)
[2025-08-19] MEDS: METOCLOPRAMIDE INJ 5 MG/ML VIAL 2 ML 2.5 MG IVP (11:02)
[2025-08-19] MEDS: DULoxetine HCL 30 MG CAPSULE PO (11:02)
[2025-08-19] MEDS: VIT B12/Vit C/FA (Nephrovite) TABLET 1 TAB PO (11:02)
--- NOTE | 2025-08-19 11:54 | PD.RESDS ---
Planned Discharge Date 08/19/25 DS: Providers Provider Date of admission: 08/16/25 15:43 Primary care physician: Catalina Angulo PA-C([facility] Admitting Provider: Byron Buitrago DO Attending Provider on Admission: Renata Zamora MD Consults: 08/15/25 05:37 Consult to Cardiology Stat Comment: Consulting Provider: Zaheer Marks Instructions: ESRD on dialysis. Status post triple-vessel bypass in March 2024, status post pacemaker placement earlier this year for symptomatic bradycardia. Presenting with 2 episodes of syncope this past week. 08/15/25 06:16 Consult to Nephrology Routine Comment: For Dialysis Consulting Provider: Kailey Awad 08/15/25 15:38 Referral Physical Therapy Routine Comment: Physician Instructions: Instructions: Recurrent Falls Attending Provider on DC: Renata Zamora MD Discharging Provider: Renata Zamora MD DS: Diagnosis Problem List Completed Was Problem List Reviewed/Reconciled?: Yes Hospital Course Hospital Course Hospital course: Hospital Course: Patient is a 65-year-old female with PMH of CAD status post CABG, HTN, PRES, ESRD on HD , CVA, HLD, anxiety, recreational drug use, status post pacemaker, seizures presented to the hospital on 08/15 with chief complaints of syncopal episode. Patient was admitted on 08/15 for workup of syncopal events. Orthostatic vitals were positive and CARLOS ENRIQUE stockings were ordered. Patient was initially switched to observation but was then switched back to inpatient on 08/16 as she needs 3 midnights for transfer to SNF. On 08/18, repeat EKG showed normal QTc interval. On 08/19, patient was considered stable for transfer to SNF. Discharge Instructions: ? We have prescribed you thigh-high compression stockings. With this daily to prevent low blood pressure when standing. Also set up and stand slowly to avoid falls. ? Continue the rest of your home medication as before ? Follow-up with customer advisor specialist, Dr. Marks below within 1 week of discharge ? Follow-up with nephrology, Dr Awad within 1 week of discharge. - Follow up with your primary care physician within 1 week of discharge. If you do not have a primary care physician, please follow up with the [facility] Residents clinic ([phone]) ? If you experience any new, worsening or persistent symptoms either call your primary doctor, or dial 911 or present to the emergency department. Problem List: #Syncopal episode secondary to #Orthostatic hypotension and #ESRD causing #Labile BP and #Labile fluid status #CAD post-triple bypass 04/20 #A-fib #Bradycardia with pacemaker #Seizure disorder #Restless leg syndrome #Anxiety This case was discussed with my attending physician, Dr. Zamora, and senior resident, Dr. Mcintosh. Gonzalez Villagran MD, PGY1 Senior Resident Attestation: I discussed with and supervised the computer science intern physician involved in the care of this patient. I personally saw and examined the patient and discussed the assessment and plan with the entire medicine team, including my attending. I agree with the discharge plan as documented above. Turner Mcintosh MD PGY3 Internal Medicine Status at Discharge Overall status at discharge: patient is progressing back to baseline Time Spent with Patient Time attestation: Total time spent providing and/or coordinating discharge services: 40 minutes Time spent: Greater than 30 minutes Exam Vital Signs Temp Pulse Resp BP Pulse Ox O2 Del Method 97.1 F 88 18 147/85 H 97 Room Air 08/19/25 10:17 08/19/25 10:21 08/19/25 10:17 08/19/25 10:21 08/19/25 10:17 08/19/25 08:00 Narrative Exam General: Awake and in no acute distress. Conversational and non-toxic appearing. Dialysis catheter present. Neurologic: GCS 15. Alert and oriented x3, no gross neurological deficit, and patient able to move all 4 extremities. HEENT: Ecchymoses across the nasal bridge and surrounding the patient's eyes bilaterally, improving; no issues with vision. Normocephalic, atraumatic, mucous membranes moist. Pupils reactive to light. Heart: Regular rate and rhythm, normal S1 and S2, no murmurs. Lungs: Clear to auscultation bilaterally with no wheezing or crackles. Abdomen: Soft, nondistended, nontender, positive bowel sounds. No guarding or rebound tenderness. Extremities: No edema. 2+ radial and dorsalis pedis pulses bilaterally. Skin: Warm. Dry. No rash or ecchymoses. Discharge Plan Plan Patient Disposition: Xfer Skilled Nsg Fac (SNF) Patient condition on transfer: Stable and Benefits outweigh risks Care Plan Goals: ? We have prescribed you thigh-high compression stockings. With this daily to prevent low blood pressure when standing. Also set up and stand slowly to avoid falls. ? Continue the rest of your home medication as before ? Follow-up with customer advisor specialist, Dr. Marks below within 1 week of discharge ? Follow-up with nephrology, Dr Awad within 1 week of discharge. - Follow up with your primary care physician within 1 week of discharge. If you do not have a primary care physician, please follow up with the [facility] Residents clinic ([phone]) ? If you experience any new, worsening or persistent symptoms either call your primary doctor, or dial 911 or present to the emergency department. Prescriptions/Referrals Prescriptions/Med Rec: New (DME) comp.stocking,thigh,long,small Misc 1 ea .Route DAILY Qty: 12 0RF Rx Instructions: Wear during the day when walking Continued ropinirole 0.25 mg tablet 0.25 mg PO BID labetalol 100 mg tablet 50 mg PO DAILY Rx Instructions: FOR SBP >140 midodrine 5 mg tablet 10 mg PO TID PRN (Reason: low blood pressure) Rx Instructions: SBP < 100 docusate sodium 100 mg capsule 100 mg PO BID aspirin [Adult Low Dose Aspirin] 81 mg tablet,delayed release (DR/EC) 81 mg PO HS Patient Comments: pt states takes all meds at night atorvastatin 40 mg tablet 40 mg PO HS Patient Comments: pt states takes all meds at night clopidogrel 75 mg tablet 75 mg PO HS Patient Comments: pt states takes all meds at night Tradjenta 5 mg tablet 5 mg PO HS Patient Comments: pt states takes all meds at night duloxetine [Cymbalta] 30 mg capsule,delayed release(DR/EC) 30 mg PO BID meclizine 25 mg tablet 25 mg PO PRN PRN (Reason: dizziness) All Day Allergy (cetirizine) 10 mg capsule 10 mg PO QDAY sevelamer carbonate [Renvela] 800 mg tablet 800 mg PO TID Rx Instructions: must administer with a meal/food metoclopramide HCl [Reglan] 10 mg tablet 10 mg PO Q8H PRN (Reason: nausea) levetiracetam 750 mg tablet 750 mg PO BID 30 Days Qty: 60 2RF Sarahi-Sixto Rx 1-60-300 mg-mg-mcg tablet 1 tab PO QDAY ascorbic acid (vitamin C) [Vitamin C] 500 mg tablet 500 mg PO BID pantoprazole 40 mg tablet,delayed release (DR/EC) 40 mg PO BID buspirone 10 mg tablet 10 mg PO BID Referrals: Kev ([facility]),LUIS Arnold [Primary Care Provider] Patient/Caregiver Discharge Instructions Discharge Activity: as per physical therapy Education Materials: Orthostatic Hypotension Print Language: Kiswahili Stand Alone Forms: Lou Award Info., Patient Portal Info Letter Discharge Order Discharge Orders: Discharge (Routine); Ordered 08/19/25 Ordered By: Eric Kaur Quality Discharge Quality Measures none MD Attestestation MD Attestation I have seen and examined the patient. I was physically present for the holland portions of the services provided including history, physical exam, diagnosis, treatment plans and orders. I agree with assessment and plan of care as documented by residents. Even though this this note was carefully revised there may still be minor errors in manager medicaid due to voice recognition software. Renata Zamora MD
--- NOTE | 2025-08-19 11:56 | PD.RESPRO ---
Documentation for date of: 08/19/25 Subjective Subjective Interval history: Ms. Edita Carmona is 65yF with PMH of ESRD on dialysis 3 times a week, status post triple coronary artery bypass graft March 2024, pacemaker implantation for symptomatic bradycardia early 2024, seizures, labial blood pressure (hypertension and hypotension), CVA, hypercholesterolemia, anxiety, and recreational drug use, presented to [facility] ED on 08/15/2025 due to repeated episode of syncope. 2 days ago (08/13/2025) because she had an episode of syncope where she fell down onto her face. She was discharged from ED and received a dialysis session, but on the evening of 08/14, she again had episode of dizziness and acute weakness while on toilet, but she didn't fell down or lost consciousness. Patient was admitted and consulted cardiology for further evaluation of syncope in the setting of s/p triple CABG in 2023 and s/p pacemaker placement in early 2024 in symptomatic bradycardia ED course: Vitals: Temp: 98.8F, VA:76, RR:18, BP:93/63, O2sat: 97% on RA Labs: WBC 11.6, Hgb: 9.9, BUN:37, Cr:4.9, eGFR: 9, Glucose: [address] (08/14/2025): Negative for acute hemorrhage, mass effect or midline shift In ED patient was given Keppra 1000mg IV x1 Medical history: As stated above Surgical history: Triple coronary bypass in March 2024, pacemaker implantation early 2024, 3 C-sections, cholecystectomy Allergies: NKDA Medications: Cetirizine 10 mg daily, Alprazolam 0.25 mg p.o. as needed, Aspirin 81 mg daily Atorvastatin 40 mg nightly, Plavix 75 mg nightly, Labetalol 50 mg p.o. daily as needed, Keppra 1 g daily at bedtime, Keppra 750 mg p.o. twice daily, Meclizine 25 mg p.o. as needed, Midodrine 10 mg p.o. 3 times daily as needed, Pantoprazole 40 mg p.o. nightly, Ropinirole 0.25 mg p.o. nightly, Sevelamer 800 mg p.o. 3 times daily, Tradjenta 5 mg p.o. nightly, Valsartan 40 mg p.o. as needed for SBP over 140 Family history: Noncontributory Social history: Denies smoking cigarettes, drinking alcohol or using other illicit drugs 08/15/2025: Labs reviewed and patient examined at the bedside. Patient with syncope with pacemaker. Pacemaker interrogation results will be reviewd tomorrow. if no device related abnormalities, then alternative causes should be considered as a cause of her syncope including electolyte derangements and volume shifts secondary to dialysis. Denies chest pain, palpation, SOB, abdominal pain, N/V, fevers or chills. 08/16/2025: Patient seen and examined at bedside Currently has no complaints reports she is doing well Pacemaker interrogation report reviewed, normal function. No significant event noted at time of syncope. Patient is orthostatic positive, educated bedside on slow to rise, wearing compression stockings. Orthostatic hypotension (OH) treatment focuses on?lifestyle changes like increasing fluids/salt, slow position changes, compression garments, and avoiding triggers (alcohol, large meals, heat), with medications like midodrine used if needed, plus addressing underlying causes, aiming to improve quality of life by reducing dizziness and fainting.?? Patient is cleared from cardiology standpoint for discharge. 08/17/2025: Patient seen examined at bedside Patient educated on orthostatic hypotension. Verbalized understanding Continue midodrine as prescribed previously. Patient has no current complaints plan to be discharged to senior care facility per physical therapy recommendations. Orthostatic hypotension (OH) treatment focuses on?lifestyle changes like increasing fluids/salt, slow position changes, compression garments, and avoiding triggers (alcohol, large meals, heat), with medications like midodrine used if needed, plus addressing underlying causes, aiming to improve quality of life by reducing dizziness and fainting.?? Patient is cleared from cardiology standpoint for discharge. 08/18/2025: No Overnight events. Labs reviewed and patient examined at the bedside. Patient's vitals are stable, and no current active complaints as of this moment. Patient will continue Aspirin 81mg po qd, Plavix 75mg po qd, and Midodrine 10mg po tid. Advised patient to buy 30-40mmHg compression stockings for managment of her orthostatic hypotension. Patient is clared from cardiology standpoint. 08/19/2025: Patient's vitals stable with no active complaints. Continue Aspirin 81mg po qd, Atorvastatin 40mg po hs, Plavix 75mg po qd, and Midodrine 10mg po tid as needed if SBP<100 and Labetalol 50mg po qd if SBP>140. . Explained to the patient to wear the compression stockings while standing for her orthostatic hypotension. Patient is cleared from cardiology standpoint. Exam Vital Signs Temp Pulse Resp BP Pulse Ox O2 Del Method 97.1 F 88 18 147/85 H 97 Room Air 08/19/25 10:17 08/19/25 10:21 08/19/25 10:17 08/19/25 10:21 08/19/25 10:17 08/19/25 08:00 Narrative Exam General: Awake and in no acute distress. Conversational and non-toxic appearing. Neurologic: GCS 15. Alert and oriented x3, no gross neurological deficit, and patient able to move all 4 extremities. HEENT: Ecchymoses across the nasal bridge and surrouindg the patient's eyes bilaterally; no issues with vision. Normocephalic, atraumatic, mucous membranes moist. Pupils reactive to light. Heart: Regular rate and rhythm, normal S1 and S2, no murmurs. Lungs: Clear to auscultation bilaterally with no wheezing or crackles. Abdomen: Soft, nondistended, nontender, positive bowel sounds. No guarding or rebound tenderness. Extremities: No edema. 2+ radial and dorsalis pedis pulses bilaterally. Skin: Warm. Dry. No rash or ecchymoses. Objective Labs 08/19/25 05:20 08/19/25 05:20 Labs: Laboratory Results - last 24 hr 08/19/25 05:20 WBC 9.2 RBC 3.39 L Hgb 10.4 L Hct 32.7 L MCV 97 MCH 30.7 MCHC 31.8 RDW Std Deviation 50.8 H Plt Count 263 Neut % (Auto) 57 Lymph % (Auto) 27 Williamson % (Auto) 10 Eos % (Auto) 4 Baso % (Auto) 1 Neut # (Auto) 5.3 Lymph # (Auto) 2.5 Williamson # (Auto) 0.9 H Eos # (Auto) 0.4 Baso # (Auto) 0.1 Immature Gran # (Auto) 0.04 H Absolute Nucleated RBC 0.00 Immature Gran % 0 Nucleated RBC % 0 Sodium 139 Potassium 3.9 D Chloride 99 Carbon Dioxide 25.8 Anion Gap 14 BUN 44 H Creatinine 4.2 H* D Estim Creat Clear Calc 13.9 L eGFR 11 L* BUN/Creatinine Ratio 10 L Glucose 117 H Calculated Osmolality 289 Calcium 9.9 Corrected Calcium 9.9 Phosphorus 4.6 Magnesium 2.3 Total Bilirubin 0.4 AST 19 ALT 21 Alkaline Phosphatase 148 H Total Protein 7.2 Albumin 4.6 D Globulin 2.6 Albumin/Globulin Ratio 1.8 Quality Measures Quality Measures none Advance care planning discussed with:: patient and other Assessment & Plan Assessment Current Active Medications: Generic Name Dose Route Start Last Admin Trade Name Freq PRN Reason Stop Dose Admin Acetaminophen 650 mg 08/15/25 11:03 Acetaminophen 325 Mg Tablet PO 09/14/25 05:29 Q6H PRN Fever >100.4 or pain 1-3 Hydrocodone Bitart/Acetaminophen 1 tab 08/15/25 11:02 08/15/25 11:18 Hydrocodone/Apap 5/325 Tablet PO 08/20/25 11:01 1 tab Q6HR PRN Administration PAIN SCALE 4-10(Mod-Sev Aspirin 81 mg 08/15/25 09:00 08/19/25 11:01 Aspirin Ec 81 Mg Tabec PO 09/14/25 08:59 81 mg QDAY ALEX Administration Buspirone HCl 10 mg 08/15/25 09:00 08/19/25 11:02 Buspirone Hcl 5 Mg Tablet PO 09/14/25 08:59 10 mg BID ALEX Administration Clopidogrel Bisulfate 75 mg 08/15/25 09:00 08/19/25 11:01 Clopidogrel Bisulfate 75 Mg Tablet PO 09/14/25 08:59 75 mg QDAY ALEX Administration Duloxetine HCl 30 mg 08/15/25 09:00 08/19/25 11:02 Duloxetine Hcl 30 Mg Capsule PO 09/14/25 08:59 30 mg BID ALEX Administration Heparin Sodium (Porcine) 3,300 unit 08/15/25 10:29 08/19/25 10:28 Heparin Sod Inj 1000 Unit/Ml Vial 10 Ml INDWELLCAT 08/29/25 10:28 3,300 unit X1 PRN Administration DIALYSIS Albumin Human 25 gm in 100 mls @ 200 mls/hr 08/18/25 08:31 08/18/25 08:35 Albuminex 25% Ivpb IV 200 mls/hr PRN PRN Administration DIALYSIS Levetiracetam 750 mg 08/15/25 09:00 08/19/25 11:02 Levetiracetam 250 Mg Tablet PO 09/14/25 08:59 750 mg BID ALEX Administration Metoclopramide HCl 2.5 mg 08/15/25 06:22 08/19/25 11:02 Metoclopramide Inj 5 Mg/Ml Vial 2 Ml IVP 09/14/25 06:29 2.5 mg Q8HR PRN Administration nausea or vomiting Protocol Midodrine 10 mg 08/18/25 08:45 08/19/25 05:39 Midodrine 5 Mg Tablet PO 09/17/25 08:44 10 mg TID ALEX Administration Ropinirole HCl 0.5 mg 08/15/25 09:00 08/19/25 11:01 Ropinirole Hcl 0.25 Mg Tablet PO 09/14/25 08:59 0.5 mg BID ALEX Administration Vitamin B Complex/Vit C/Folic Acid 1 tab 08/15/25 09:00 08/19/25 11:02 Vit B12/Vit C/Fa (Nephrovite) Tablet PO 09/14/25 08:59 1 tab QDAY ALEX Administration Plan Ms. Carmona is a 65-year-old female with past medical history of ESRD on HD M/W/F follows Dr. Awad, CAD status post CABG November 2023, hypertension, hyperlipidemia, status post pacemaker placed in 2024 for symptomatic AV block-[employer] (Dr Mehta), PRES, CVA, type 2 diabetes mellitus, history of gastric sleeve operation, diabetic gastroparesis, seizure disorder on Keppra, restless leg syndrome, anxiety, and recurrent UTIs who presented to [facility] emergency department on 08/15/2025 with a chief complaint of repeated syncopal episodes. Patient admitted for further workup. #Syncopal episodes secondary to #Orthostatic hypotension, orthostatic positive #s/p Pacemaker-[employer] placement in Sep 2024, history of AV block Two episodes of syncopal episodes prior to admission Head CT (08/14/2025): Negative for acute hemorrhage, mass effect or midline shift EKG 08/14 shows sinus rhythm Troponin 08/15 negative, denies any chest pain no acute ST-T changes. Pacemaker was placed on Sep [address] Allred in [place] due to symptomatic bradycardia with AV block. Orthostatic vital 08/15 orthostatic lying BP 138/78 HR 73, sitting BP 87/64 HR 84, standing 83/51, HR 81?orthostatic positive, likely etiology. Pacemaker interrogation report reviewed, no significant electrical activity noted at the time of syncope -Echocardiogram obtained recently 06/25/2025 shows 1. Left ventricle size is normal and systolic function is normal. Visually estimated ejection fraction is 55-60%. There is grade I diastolic dysfunction.There is moderate concentric hypertrophy noted. 2. Right ventricle size is normal and systolic function is normal. Estimated RVSP is 21 mmHg. 3. There is mild aortic valve sclerosis with no stenosis and no regurgitation. 4. There is mild tricuspid valve regurgitation. 5. Normal IVC with estimated RA pressure 8 mmHg. - CHELSY 06/30/2025 obtained to rule out endocarditis shows: 1. No clear evidence of any valvular vegetation or any vegetations on the pacemaker leads. No endocarditis. 2. Bubble study negative for PFO and ASD. No LA or JESSICA thrombus. 3. Normal LV size and function with an EF of around 60 to 65%. 4. Normal RV size and function. 5. Trace MR, TR and PI. No pericardial effusion. -Patient is orthostatic positive, educated bedside on slow to rise, wearing compression stockings. -Continue midodrine 10 mg p.o. 3 times daily as needed -Patient has no current complaints plan to be discharged to senior care facility per physical therapy recommendations. -Orthostatic hypotension (OH) treatment focuses on?lifestyle changes like increasing fluids/salt, slow position changes, compression garments, and avoiding triggers (alcohol, large meals, heat), with medications like midodrine used if needed, plus addressing underlying causes, aiming to improve quality of life by reducing dizziness and fainting.?? Patient is cleared from cardiology standpoint for discharge. #CAD status post CABG November 2023 Patient does have a history of CAD status post CABG in May 2024 with an active cardiac catheterization after positive stress test which was done as part of the preoperative workup. - Continue aspirin and Plavix #Hypertension Patient does have a history of PRES Patient on labetalol 50 mg p.o. daily Monitor blood pressure resume as needed #Hyperlipidemia Lipid panel 03/26 shows triglyceride 134, cholesterol 209, LDL 133, HDL 49 Continue atorvastatin #ESRD on dialysis MWF #Seizure disorder #Restless leg syndrome #Anxiety -Management per Primary Hospitalist team Thank you for allowing us to participate in the care of Ms Edita Carmona. Cardiology will continue to follow Assessment and plan discussed with my attending physician Kendrick Carmona. Dr. White (PGY-1) - Internal medicine resident Attending Provider Attestation/Addendum I have personally seen and examined the patient separately on the above date of service and discussed the plan of care with the resident. I reviewed the resident Dr. Jazlyn White consultation progress note and agree with the resident findings and plan in the note above and have also edited the documentation to reflect my findings and plan. Zaheer Marks M.D. Interventional Cardiology
--- NOTE | 2025-08-19 13:56 | PC.NURSE ---
Report given to Jovita tello [facility]
--- NOTE | 2025-08-19 14:39 | PC.SS ---
SS has setup gurney transportation with Dax from [employer] for 3pm to [facility]. Ref [id number].? SS has requested [facility].? Per [facility] entry level sales representative, [facility] is not a guaranteed transport company.? Estimated time is 3-4 hours.? SS has sent patient?s facesheet and ambulance form to [facility] using [facility].? SS has spoken to Orin from [facility] to confirm she received patient's information on [employer]. SS received call from Beth who has requested new time of 4pm to [facility]. Betty CROWELL is aware. SS spoke to dtr, is aware. SS contacted Yesy from [facility] who is aware pt is d/c to [facility] today and will resume her dialysis schedule. SS also sent [facility] d/c summary upon their request
--- NOTE | 2025-08-19 19:30 | ESPR_ITS ---
RE: KAREN BARNES : 1960 DATE OF SERVICE: 08/19/2025 HISTORY OF PRESENT ILLNESS: Briefly she is a 65-year-old woman with past medical history significant for type 2 diabetes with diabetic retinopathy, neuropathy, nephropathy, hypertension, CAD, status post CABG, third-degree AV block, status post pacemaker placement on 09/2024, and ESRD on dialysis at the [facility] dialyzing Monday, Monday, Monday since 2021 who presented to emergency room 2 days in a row for weakness. Patient fell twice and sustained 2 black eyes. Patient complains of being very weak and tested for orthostatic hypotension and was found positive for orthostatic hypotension test. Patient was already started on midodrine 10 mg t.i.d. as needed for blood pressure less than 120. Patient is being seen by Dr. Wade as well who also confirmed that the patient has orthostatic hypotension and most likely secondary to autonomic neuropathy. Patient had dialysis today as well due to the holidays and is ready to be transferred to rehabilitation. CURRENT MEDICATIONS: 1. Acetaminophen. 2. Albumin. 3. Aspirin. 4. Buspirone 10 mg b.i.d. 5. Plavix 75 mg daily. 6. Duloxetine 10 mg b.i.d. 7. Epogen 10,000 units x1. 8. Hydrocodone. 9. Levetiracetam 750 mg b.i.d. 10. Metoclopramide 2.5 mg p.o. q.8 h. p.r.n. 11. Midodrine 10 mg p.o. t.i.d. p.r.n. 12. Requip 0.5 mg p.o. b.i.d. 13. Sarahi-Sixto. PHYSICAL EXAMINATION: General: Awake, alert, oriented, by the bedside. Vital Signs: Blood pressure of 113/67, heart rate of 89. HEENT: Anicteric sclerae, normocephalic. Neck: Supple, no JVD. Chest and Lungs: Symmetric expansion, clear breath sounds. Cardiac: Without murmurs. Abdomen: Soft, nontender. Extremities: No edema. LABORATORY DATA: Hemoglobin 10.4, WBC 9200, platelet count 253,000. Sodium 139, potassium 3.9, chloride 99, CO2 of 25.8, BUN 44, creatinine 4.2, glucose 117, calcium 9.9, phosphorus 4.6. ASSESSMENT: 1. End-stage renal disease. 2. Orthostatic hypotension due to autonomic neuropathy. 3. Anemia of chronic kidney disease. 4. Type 2 diabetes with retinopathy, neuropathy, nephropathy. 5. Debilitation. 6. History of coronary artery bypass graft. 7. History of pacemaker placement. 8. History of seizure disorder. PLAN: Patient just had dialysis today and will be picked up to stay in a rehabilitation. Patient will continue her midodrine and wear a special compression stockings suggested by Dr. Wade. DT: 19:00:04 TT: 19:29:00 Ref: [id number] - TID: [id number] [facility]
[2025-08-20 09:11] VITALS: BP 147/73; PULSE 72
[2025-08-20 09:15] VITALS: BP 154/80; PULSE 72
[2025-08-20 09:19] VITALS: BP 139/56; PULSE 74; RESP 18; TEMP 36.4; O2SAT 97
== END 2025-08-19 15:33 | disposition skilled nursing facility (03) | DRG 312 ==
LOC: SERX 08-15 05:09 → SERHOLD 08-15 06:56 → S2NX 08-16 07:43 → SERHOLD 08-18 06:14 → S2NX 08-18 06:15
PROVIDERS: Admitting Provider Internal Medicine; Emergency Provider Emergency Medicine; PCP Physician Assistant; Visit Provider Student in an Organized Health Care Education/Training Program
DX: R55 Syncope and collapse (principal); N18.6 End stage renal disease; I12.0 Hypertensive chronic kidney disease with stage 5 chronic kidney disease or end stage renal disease; I95.1 Orthostatic hypotension; E11.22 Type 2 diabetes mellitus with diabetic chronic kidney disease; I48.91 Unspecified atrial fibrillation; G40.909 Epilepsy, unspecified, not intractable, without status epilepticus; G25.81 Restless legs syndrome; F41.9 Anxiety disorder, unspecified; Z99.2 Dependence on renal dialysis; D63.1 Anemia in chronic kidney disease; I25.10 Atherosclerotic heart disease of native coronary artery without angina pectoris; E11.319 Type 2 diabetes mellitus with unspecified diabetic retinopathy without macular edema; E11.43 Type 2 diabetes mellitus with diabetic autonomic (poly)neuropathy; K31.84 Gastroparesis; Z79.02 Long term (current) use of antithrombotics/antiplatelets; Z79.82 Long term (current) use of aspirin; Z79.899 Other long term (current) drug therapy; R00.1 Bradycardia, unspecified; I35.8 Other nonrheumatic aortic valve disorders; Z86.73 Personal history of transient ischemic attack (TIA), and cerebral infarction without residual deficits; Z95.0 Presence of cardiac pacemaker; Z95.1 Presence of aortocoronary bypass graft; Z98.84 Bariatric surgery status; Z87.440 Personal history of urinary (tract) infections
CPT/HCPCS: 36415; 70450; 70486; 80053; 81001; 83605; 83735; 84100; 84439; 84443; 84484; 85025; 85610; 87081; 87502; 87635; 93005; 96374; 97162; 99283; G0378; J1643; J1953; J2765; P9047; Q5106; A9270